=== PATIENT | female | born 1995 | race Caucasian/White ===

== ENCOUNTER 2024-01-23 12:52 | Outpatient (OUT) | payer OTHER, SELFPAY ==
--- NOTE | 2024-01-23 12:56 | US_ITS ---
[address] [address] Patient Name: NIALL HAILE MRN: [id number] date: 1995 Sex: F Assigned Patient Location: [facility] Current Patient Location: [facility] Accession/Order Number: [id number] Exam Date: 01/23/2024 13:00 Report Date: 01/23/2024 13:38 At the request of: EVA SOARES Procedure: US OB transvaginal EXAMINATION: US OB transvaginal HISTORY: Missed menses COMPARISON: No relevant comparison available. FINDINGS: Transvaginal images Cook intrauterine gestation Gestational sac: 2.22 cm, 6 weeks 6 days CRL: 1.34 cm, 7 days Yolk sac: 2.4 mm Heart rate: 154 beats minute Cervix: Closed, 3.9 cm The uterus is normal, anteverted The ovaries are normal Clinical age: 7 weeks 6 days Clinical URSULA: 09/04/2024 Ultrasound age: 7 weeks 4 days Ultrasound URSULA: 09/06/2024 US/US OB transvaginal IMPRESSION: Viable cook intrauterine gestation measuring 7 weeks 4 days Electronically authenticated by: CHINEDU FRIAS Date: 01/23/2024 13:38
== END 2024-01-23 12:53 | disposition home or self-care (01) ==
LOC: NOMS 12:52
PROVIDERS: Visit Provider Obstetrics & Gynecology
DX: Z34.91 Encounter for supervision of normal pregnancy, unspecified, first trimester (principal); Z3A.01 Less than 8 weeks gestation of pregnancy; N92.6 Irregular menstruation, unspecified
CPT/HCPCS: 76817

== ENCOUNTER 2024-02-13 10:34 | Outpatient (OUT) | payer OTHER, SELFPAY | END 2024-02-13 10:35 | disposition home or self-care (01) | PROVIDERS: Visit Provider Obstetrics & Gynecology | DX: Z34.80 Encounter for supervision of other normal pregnancy, unspecified trimester (principal) | CPT/HCPCS: 36415 ==

== ENCOUNTER 2024-04-09 20:50 | Outpatient (REF) | payer OTHER, SELFPAY ==
--- OUTSIDE RECORDS SUMMARY | 2024-04-09 20:53 | XMS_ITS | CCD ---
Author Organization [facility] Care Team Providers Care District [address] Reporter Name Role Phone LOLA KIRBY Unavailable Unavailable LOLA KIRBY Unavailable Unavailable UNKNOWN, PROVIDER Unavailable Unavailable GERARDO DOAN Unavailable Unavail able SALCIDO, EMILIANO S Unavailable Unavailable SELF, SELF Unavailable Unavailable SALCIDO, EMILIANO S Unavailable Unavailable SALCIDO, EMILIANO S Unavailable Unavailable SALCIDO, EMILIANO S Unavailable Unavailable SALCIDO, EMILIANO S Unavailable Unavailable SALCIDO, EMILIANO S Unavailable Unavailable SALCIDO, EMILIANO S Unavailable Unavailable Gerardo Doan Primary Care Provider [phone] Gerardo Doan Primary Care Provider [phone] Gerardo Doan Primary Care Provider [phone] Gerardo Doan MD Primary Care Provider [phone] Gerardo Doan MD Primary Care Provider EVA SOARES Attending Unavailable EVA SOARES Referring Unavailable GERARDO DOAN Primary Care Unavailable GERARDO DOAN Primary Care Unavailable LOLA KIRBY Referring Unavailable VERONICA LERMA Attending Unavailable EVA SOARES Attending Unavailable JOEL ESTES Attending Unavailable Medications Current Medications Medication Drug Class(es) Dates Sig (Normalized) Sig (Original) ethinyl estradiol 0.035 mg / norgestimate 0.25 mg oral tablet (3 sources) Progestin, Estrogen Start: 07-13-2022 End: 03-27-2023 take 1 tablet by mouth once daily norgestimate-ethi nyl estradiol 0.25-35 MG-MCG tablet Take 1 tablet by mouth daily. Patient is tri-cycling. 21 tablet 17 03/27/2023 Active Start: 03-19-2022 take 1 tablet by sunita th once daily norgestimate-ethinyl estradiol 0.25-35 MG-MCG tablet Indications: Initiation of oral contraception Take 1 tablet by mouth daily. 84 tablet 3 03/19/2022 Active 24 hr ferrous sulfate 142 mg extended release oral tablet (7 sources) Start: 01-17-2021 take 1 tablet by mouth three times daily Iron, Ferrous Sulfate, 142 (45 Fe) MG Tab CR Indications: Iron deficiency anemia due to chronic blood loss Take 1 tablet by mouth 3 times daily. 0 01/17/2021 Active sertraline 50 mg oral tablet (5 sources) Serotonin Reuptake Inhibitor Start: 03-15-2023 Sertraline 50 MG tablet TAKE 1 TABLET DAILY FOR 3 WEEKS THEN TAKE 1.5 TABLETS DAILY FOR 7 DAYS THE WEEK OF MENSTRUAL CYCLE 0 03/15/2023 Active Start: 02-01-2021 End: 03-19-2022 take 1 tablet by mouth once daily, then take 0.5 tablet by mouth once daily sertraline (Zoloft) 25 MG tablet Indications: Generalized anxiety disorder Take 1 tablet by mouth daily. Take 1/2 tab PO daily x8 days to start Rx. 30 tablet 1 02/01/2021 03/19/2022 Discontinued (Therapy completed) Completed/Discontinued Medications Medication Drug Class(es) Dates Sig (Normalized) Sig (Original) amoxicillin 875 mg / clavulanate 125 mg oral tablet (2 sources) Penicillin-class Antibacterial Start: 01-23-2021 End: 02-02-2021 take 1 tablet by mouth every twelve hours amoxicillin-clavul anate 875-125 MG tablet Take 1 tablet by mouth every 12 hours for 10 days. 20 tablet 0 01/23/2021 02/02/2021 12 hr cetirizine hydrochloride 5 mg / pseudoephedrine hydrochloride 120 mg extended release oral tablet (5 sources) alpha-Adrenergic Agonist, Histamine-1 Receptor Antagonist Start: 02-01-2021 End: 03-27-2023 take 5-120 mg by mouth every twelve hours cetirizine-psuedoe phedrine 5-120 MG Tab SR 12 HR tablet Indications: Fluid level behind tympanic membrane of both ears Take 1 tablet by mouth 2 times daily. 60 tablet 0 02/01/2021 03/27/2023 Discontinued Ethinyl Estradiol / Levonorgestrel (13 sources) Progestin, Estrogen, Progestin-containin g Intrauterine Device Start: 03-17-2021 End: 03-19-2022 levonorgestrel-eth inyl estradiol (Quasense) 0.15-0.03 MG tablet Indications: Encounter for surveillance of contraceptive pills Take one tablet by mouth daily. 91 tablet 3 03/17/2021 03/19/2022 Discontinued (Patient Preference) Start: 03-17-2021 levonorgestrel -ethinyl estradiol (Quasense) 0.15-0.03 MG tablet Indications: Encounter for surveillance of contraceptive pills Take one tablet by mouth daily. 91 tablet 3 03/17/2021 Active Start: 02-23-2021 End: 03-17-2021 levonorgestrel-ethinyl estra diol (Quasense) 0.15-0.03 MG tablet Indications: Encounter for surveillance of contraceptive pills Take one tablet by mouth daily. 28 tablet 0 02/23/2021 03/17/2021 Discontinued (Reorder) Start: 03-15-2020 take 1 tablet by sunita th once daily, then take 0.15 tablet by mouth levonorgestrel-ethinyl estradiol (Quasense) 0.15-0.03 MG tablet Indications: Encounter for surveillance of contraceptive pills Take one tablet by mouth daily. 1 Package 3 03/15/2020 Active Start: 03-11-2019 End: 03-15-2020 take 1 tablet by mouth once daily QUASENSE 0.15-0.03 MG Tab Indications: Encounter for surveillance of contraceptive pills Take one tablet by mouth daily. 1 Package 3 03/11/2019 03/15/2020 Discontinued (Reorder) Start: 03-11-2019 take 1 tablet by sunita th once daily QUASENSE 0.15-0.03 MG Tab Indications: Encounter for surveillance of contraceptive pills Take one tablet by mouth daily. 1 Package 3 03/11/2019 Active Start: 02-18-2018 End: 03-11-2019 take 1 tablet by mouth once daily QUASENSE 0.15-0.03 MG Tab Indications: Encounter for surveillance of contraceptive pills Take one tablet by mouth daily. 1 Package 3 02/18/2018 03/11/2019 Discontinued (Reorder) Start: 02-18-2018 take 1 tablet by sunita th once daily QUASENSE 0.15-0.03 MG Tab Indications: Encounter for surveillance of contraceptive pills Take one tablet by mouth daily. 1 Package 3 02/18/2018 Active Problems Active Problems Problem Classification Problem Date Documented Da te Episodic/Chronic Acquired foot deformities (7 sources) Acquired right hallux valgus; Translations: [Hallux valgus (acquired), right foot] Onset: 02-13-2018 02-13-2018 Chronic Acquired foot deformities (4 sources) Acquired right hallux valgus; Translations: [Hallux valgus (acquired), right foot] Onset: 02-13-2018 02-13-2018 Anxiety disorders (6 sources) Generalized anxiety disorder; Translations: [Generalized anxiety disorder] Onset: 02-03-2021 Chronic Conditions associated with dizziness or vertigo (2 sources) Lightheadedness; Translations: [Dizziness and giddiness] Episodic Contraceptive and procreative management (5 sources) Oral contraception; Translations: [Encounter for surveillance of contraceptive pills] Episodic Deficiency and other anemia (1 source) Iron deficiency anemia due to blood loss; Translations: [Iron deficiency 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 Diseases of white blood cells (1 source) Leukocytosis; Translations: [Elevated white blood cell count, unspecified] Chronic Menstrual disorders (20 sources) Dysmenorrhea; Translations: [Irregular periods] Onset: 12-21-2016 12-21-2016 Chronic Other congenital anomalies (2 sources) Congenital pes cavus; Translations: [Congenital pes cavus] Onset: 04-25-2018 Chronic Other congenital anomalies (4 sources) Talipes cavus; Translations: [Pes cavus] Onset: 02-13-2018 02-13-2018 Other gastrointestinal disorders (11 sources) Irritable bowel syndrome; Translations: [Mixed irritable bowel syndrome] Onset: 08-29-2017 08-29-2017 Chronic Other nervous system disorders (4 sources) Right tarsal tunnel syndrome; Translations: [Tarsal tunnel syndrome of right side] Onset: 02-13-2018 02-13-2018 Other nutritional; endocrine; and metabolic disorders (4 sources) Body mass index 25-29 - overweight; Translations: [BMI 27.0-27.9,adult] Onset: 08-29-2017 08-29-2017 Chronic Unclassified (10 sources) Encounter for screening for malignant neoplasm of cervix; Translations: [Patient encounter status] Onset: 02-15-2017 Episodic Unclassified (2 sources) Patient encounter status; Translations: [Encounter for gynecological examination without abnormal finding] Unclassified (5 sources) History of COVID-19; Translations: [History of COVID-19] Onset: 02-03-2021 Past or Other Problems Problem Classification Problem Date Documented Da te Episodic/Chronic Acquired foot deformities (7 sources) Talipes cavus; Translations: [Congenital pes cavus, unspecified foot] Onset: 02-13-2018 02-13-2018 Episodic Heart valve disorders (7 sources) Heart murmur; Translations: [Cardiac murmur, unspecified] Onset: 02-03-2021 Episodic Other connective tissue disease (2 sources) Pain in right foot; Translations: [Pain in right foot] Onset: 02-13-2018 Episodic Other connective tissue disease (11 sources) Tendinitis of flexor hallucis longus; Translations: [Other enthesopathies, not elsewhere classified] Onset: 02-13-2018 02-13-2018 Episodic Other gastrointestinal disorders (11 sources) Slow transit constipation; Translations: [Slow transit constipation] Onset: 05-10-2014 12-17-2016 Episodic Other infections; including parasitic (2 sources) Personal history of other infectious and parasitic diseases; Translations: [History of COVID-19] Onset: 02-03-2021 02-03-2021 Episodic Other nervous system disorders (7 sources) Right tarsal tunnel syndrome; Translations: [Tarsal tunnel syndrome, right lower limb] Onset: 02-13-2018 Resolved: 02-03-2021 02-13-2018 Chronic Other nutritional; endocrine; and metabolic disorders (7 sources) Body mass index 25-29 - overweight; Translations: [Body mass index (BMI) 28.0-28.9, adult] Onset: 08-29-2017 Episodic Other nutritional; endocrine; and metabolic disorders (1 source) Overweight in adulthood with body mass index of 25 or more but less than 30; Translations: [Body mass index (BMI) 29.0-29.9, adult] Onset: 08-29-2017 02-03-2021 Episodic Otitis media and related conditions (9 sources) Fluid level behind tympanic membrane; Translations: [Unspecified nonsuppurative otitis media, bilateral] Onset: 01-17-2021 Episodic Unclassified (1 source) Encounter for screening for malignant neoplasm of cervix; Translations: [Encounter for screening for malignant neoplasm of cervix] Onset: 02-15-2017 Results Test Name Value Interpretation Reference Range Facil ity RPRon 02-10-2024 Reagin Ab RPR Ql (S) Non-Reactive Normal NONREACTIVE A [facility] Comment on above: Result Comment: Test ing performed at [place] [address] Performed By: #### A RPR, RUBL, ACBC, FX, GHIV #### [place] [address] RUBELLA SCREENon 02-10-2024 RUBELLA SCREEN Positive Normal POSITIVE [facility] Comment on above: Result Comment: POSI TIVE RESULT INDICATES PRESUMED IMMUNITY Testing performed at [place] [address] Performed By: #### F X #### [place] [address] HEP B SURFACE AGon HEP B SURFACE AG Negative Normal NEGATIVE [facility] Comment on above: Performed By: #### F X #### [place] [address] HEP C ABon 02-07-2024 HEP C AB Negative Normal NEGATIVE [facility] Comment on above: Performed By: #### F X #### [place] [address] CBCon 02-06-2024 ABSOLUTE BAS 0.0 10*3/uL Normal 0.0-0.2 [facility] Comment on above: Result Comment: Test ing performed at [place] [address] Performed By: #### A RPR, RUBL, ACBC, FX, GHIV #### [place] [address] ABSOLUTE EOS 0.1 10*3/uL Normal 0.0-0.7 [facility] Comment on above: Performed By: #### A RPR, RUBL, ACBC, FX, GHIV #### Testing performed at [address] [address] ABSOLUTE NEUTROPHIL COUNT 9.0 10*3/uL High 1.4-6.5 [facility] Comment on above: Performed By: #### A RPR, RUBL, ACBC, FX, GHIV #### Testing performed at [place] [id number] Basophils/100 WBC (Bld) 0.2 % Normal 0.0-2.0 [facility] Comment on above: Performed By: #### A RPR, RUBL, ACBC, FX, GHIV #### [place] [address] DTYPE AUTO DIFF Normal [facility] Comment on above: Performed By: #### A RPR, RUBL, ACBC, FX, GHIV #### [place] [address] Eosinophils/100 WBC (Bld) 0.6 % Normal 0.0-11.0 [facility] Comment on above: Performed By: #### A RPR, RUBL, ACBC, FX, GHIV #### Testing performed at [place] [id number] Lymphocytes (Bld) [#/Vol] 2.2 10*3/uL Normal 1.2-3.4 [facility] Comment on above: Performed By: #### A RPR, RUBL, ACBC, FX, GHIV #### Testing performed at [place] [id number] Lymphocytes/100 WBC (Bld) 18.4 % Low 20.0-55.0 [facility] Comment on above: Performed By: #### A RPR, RUBL, ACBC, FX, GHIV #### Testing performed at [place] [id number] Monocytes (Bld) [#/Vol] 0.8 10*3/uL High 0.0-0.7 [facility] Comment on above: Performed By: #### A RPR, RUBL, ACBC, FX, GHIV #### Testing performed at [place] [id number] Monocytes/100 WBC (Bld) 6.3 % Normal 0.0-10.0 [facility] Comment on above: Performed By: #### A RPR, RUBL, ACBC, FX, GHIV #### [place] [address] Neutrophils/100 WBC (Bld) 74.5 % Normal 37.0-75.0 [facility] Comment on above: Performed By: #### A RPR, RUBL, ACBC, FX, GHIV #### [place] [address] Erythrocyte distribution width (RBC) [Ratio] 13.5 % Normal 11.5-14.5 [facility] Comment on above: Performed By: #### A RPR, RUBL, ACBC, FX, GHIV #### [place] [address] Hematocrit (Bld) [Volume fraction] 36.2 % Normal 36.0-48.0 [facility] Comment on above: Performed By: #### A RPR, RUBL, ACBC, FX, GHIV #### [place] [address] Hemoglobin (Bld) [Mass/Vol] 12.0 g/dL Normal 12.0-16.0 [facility] Comment on above: Performed By: #### A RPR, RUBL, ACBC, FX, GHIV #### [place] [address] MCH (RBC) [Entitic mass] 29.6 pg Normal 26.0-35.0 [facility] Comment on above: Performed By: #### A RPR, RUBL, ACBC, FX, GHIV #### [place] [address] MCHC (RBC) [Mass/Vol] 33.0 g/dL Normal 27.0-37.0 [facility] Comment on above: Performed By: #### A RPR, RUBL, ACBC, FX, GHIV #### [place] [address] MCV (RBC) [Entitic vol] 89.7 fL Normal 80.0-100.0 [facility] Comment on above: Performed By: #### A RPR, RUBL, ACBC, FX, GHIV #### [place] [address] Platelet mean volume (Bld) [Entitic vol] 6.9 fL Low 7.4-11.0 [facility] Comment on above: Performed By: #### A RPR, RUBL, ACBC, FX, GHIV #### [place] [address] Platelets (Bld) [#/Vol] 406 10*3/uL High 130-400 [facility] Comment on above: Performed By: #### A RPR, RUBL, ACBC, FX, GHIV #### [place] [address] RBC (Bld) [#/Vol] 4.04 10*6/uL Normal 4.0-5.4 [facility] Comment on above: Performed By: #### A RPR, RUBL, ACBC, FX, GHIV #### [place] [address] WBC (Bld) [#/Vol] 12.1 10*3/uL High 3.6-11.0 [facility] Comment on above: Performed By: #### A RPR, RUBL, ACBC, FX, GHIV #### [place] [address] FAX REQUESTon 02-06-2024 FAX TO [phone] Normal [facility] Comment on above: Result Comment: Test ing performed at [place] [address] Performed By: #### F X #### [place] [address] FAX TO [phone] Normal [facility] Comment on above: Result Comment: Test ing performed at [place] [address] Performed By: #### F X #### [place] [address] FAX TO [phone] [facility] Comment on above: Result Comment: Test ing performed at [place] [address] Performed By: #### F X #### [place] [address] FAX TO [phone] [facility] Comment on above: Result Comment: Test ing performed at [place] [address] Performed By: #### F X #### [place] [address] FAX TO [phone] [facility] Comment on above: Result Comment: Test ing performed at [place] [address] Performed By: #### A RPR, RUBL, ACBC, FX, GHIV #### [place] [address] HEMOGLOBIN A1Con 02-06-2024 Glucose [Mass/Vol] 100 mg/dL Normal [facility] Comment on above: Result Comment: Test ing performed at [place] [address] Performed By: #### F X #### [place] [address] HbA1c (Bld) [Mass fraction] 5.1 % Normal 0-6 [facility] Comment on above: Result Comment: NORMAL <5.7% PREDIABETES 5.7-6.4% DIABETES 6.5% OR HIGHER Performed By: #### F X #### [place] [address] HIV 1,2 ABon 02-06-2024 HIV 1,2 Non-Reactive Normal NONREACTIVE [facility] Comment on above: Result Comment: Test ing performed at [place] [address] Performed By: #### A RPR, RUBL, ACBC, FX, GHIV #### [place] [address] TYPE AND SCREEN CROSSMATCH C ONVERTIBLEon 02-06-2024 TYPE AND SCREEN CROSSMATCH CONVERTIBLE WORKUP EXPIRES 02/09/2024,2359 ABO/RH(D) O POSITIVE ANTIBODY SCREEN NEGATIVE ARM BAND NUMBER [id number] Testing performed at [address] Comment on above: Performed By: #### T SCC #### [place] [address] URINE CULTUREon 02-06-2024 Bacteria identified Cx Nom (U) SPECIMEN DESCRIPTION URINE CLEAN CATCH CULTURE NO PATHOGENS ISOLATED * Result Note: Testing performed at [place] [address] * REPORT STATUS 02/08/2024 * Result Note: FINAL * [facility] Comment on above: Performed By: #### A URNC #### [place] [address] PAP IG,RFX HPV ASCUon 2022 . . [facility] . Comment [facility] Comment on above: Result Comment: (NOT E) The HPV DNA reflex criteria were not met with this specimen result therefore, no HPV testing was performed. No. of containers..01 ThinPrep Vial DIAGNOSIS: Comment [facility] Comment on above: Result Comment: NEGA TIVE FOR INTRAEPITHELIAL LESION OR MALIGNANCY. NOTE: Comment [facility] Comment on above: Result Comment: (NOT E) The Pap smear is a screening test designed to aid in the detection of premalignant and malignant conditions of the uterine cervix. It is not a diagnostic procedure and should not be used as the sole means of detecting cervical cancer. Both false-positive and false-negative reports do occur. PERFORMED BY: Comment [facility] Comment on above: Result Comment: Josue Carrero Mud Analysis Supervisor (ASCP) SPECIMEN ADEQUACY: Comment [facility] Comment on above: Result Comment: (NOT E) Satisfactory for evaluation. Endocervical and/or squamous metaplastic cells (endocervical component) are present. TEST METHODOLOGY: Comment Normal [facility] Comment on above: Result Comment: (NOT E) This liquid based ThinPrep(R) pap test was screened with the use of an image guided system. PERFORMED AT [facility] ECHOCARDIOGRAM TREADMILL STR ESS TESTOrdered By: Gerardo Doan on 02-18-2021 APPROVED REPORT EXAM: Treadmill Stress Echo Conclusion Normal stress echo. Baseline EF 60%, augmented EF 70%. No ischemic WMA seen. Good exercise tolerance, no CP with stress. Indeterminant stress ECG due to TWI precordial leads that did not significantly change with stress. Other Information Study Quality: Excellent Echo Procedure The patient underwent an Exercise Stress Test using the Rodger Protocol. Blood pressure, heart rate, and EKG were monitored. An Echocardiogram was performed by production line technician in four stages in quad fashion. At peak stress, four selected images were obtained and placed side by side with resting images for comparison. Stress Test Details Test: Exercise stress testing was performed using a Rodger protocol. HR Resting HR: 109 bpm Max Heart Rate (APMHR): 194.322988 bpm Max HR Achieved: 200 bpm Target HR (85% APMHR): 164.625014 bpm % of APMHR: 103.09 Recovery HR: 121 bpm HR response to stress: appropriate BP Resting BP: 142/78 mmHg Max BP: 164/80 mmHg BP response to stress: Normal blood pressure response to stress. ECG Resting ECG: sinus rhythm T wave abnormal at rest and stress Arrhythmia: None Clinical Reason for Termination: fatigue Stress Symptoms: None Exercise duration: 11:02 min Exercise capacity: 13.70 METs Scale: Active Angina Score: None [facility] System User, Interfaces - 02/18/2021 12:14 AM EDT APPROVED REPORT EXAM: Treadmill Stress Echo Conclusion Normal stress echo. Baseline EF 60%, augmented EF 70%. No ischemic WMA seen. Good exercise tolerance, no CP with stress. Indeterminant stress ECG due to TWI precordial leads that did not significantly change with stress. Other Information Study Quality: Excellent Echo Procedure The patient underwent an Exercise Stress Test using the Rodger Protocol. Blood pressure, heart rate, and EKG were monitored. An Echocardiogram was performed by production line technician in four stages in quad fashion. At peak stress, four selected images were obtained and placed side by side with resting images for comparison. Stress Test Details Test: Exercise stress testing was performed using a Rodger protocol. HR Resting HR: 109 bpmMax Heart Rate (APMHR): 194.290173 bpm Max HR Achieved: 200 bpmTarget HR (85% APMHR): 164.129831 bpm % of APMHR: 103.09 Recovery HR: 121 bpm HR response to stress: appropriate BP Resting BP: 142/78 mmHg Max BP: 164/80 mmHg BP response to stress: Normal blood pressure response to stress. ECG Resting ECG: sinus rhythm T wave abnormal at rest and stress Arrhythmia: None Clinical Reason for Termination: fatigue Stress Symptoms: None Exercise duration: 11:02 min Exercise capacity: 13.70 METs Scale: Active Angina Score: None [facility] [employer] [facility] ECGOrdered By: Gerardo Doan on 01-27-2021 [facility] B12 & FOLATEOrdered By: Yessy Doan on 01-17-2021 Cobalamin (Vitamin B12) [Mass/Vol] 383 pg/mL 239 - 931 PG/ML [facility] [employer] [facility] Folate [Mass/Vol] 19.7 ng/mL [facility] [employer] [facility] Comment on above: Testing performed at [place], [place] [address] [facility] CBC, EDIF, PLATELETOrdered B y: Gerardo Doan on 01-17-2021 ABSOLUTE BASOPHIL COUNT 0.1 10*3/uL 0.0 - 0.2 10*3/uL [facility] Comment on above: Testing performed at [place], [place] [address] Basophils/100 WBC (Bld) 0.4 % 0.0 - 2.0 % [facility] Differential cell count method Nom (Bld) AUTO DIFF % [facility] Eosinophils (Bld) [#/Vol] 0.10 10*3/uL 0.0 - 0.7 10*3/uL [facility] [employer] [facility] Eosinophils/100 WBC (Bld) 0.6 % 0.0 - 11.0 % [facility] Erythrocyte distribution width (RBC) [Ratio] 13.2 % 11.5 - 14.5 % [facility] Hematocrit (Bld) [Volume fraction] 39.3 % 36.0 - 48.0 % [facility] Hemoglobin (Bld) [Mass/Vol] 13.6 g/dL [facility] Interpretation and review of laboratory results Abnormal [facility] Lymphocytes (Bld) [#/Vol] 1.90 10*3/uL 1.2 - 3.4 10*3/uL [facility] Lymphocytes/100 WBC (Bld) 13.6 % Low 20.0 - 55.0 % [facility] MCH (RBC) [Entitic mass] 31.1 pg 26.0 - 35.0 PG [facility] MCHC (RBC) [Mass/Vol] 34.7 g/dL [facility] MCV (RBC) [Entitic vol] 89.6 fL [facility] Monocytes (Bld) [#/Vol] 0.5 10*3/uL 0.0 - 0.7 10*3/uL [facility] Monocytes/100 WBC (Bld) 3.5 % 0.0 - 10.0 % [facility] Neutrophils (Bld) [#/Vol] 11.3 10*3/uL High 1.4 - 6.5 10*3/uL [facility] Neutrophils/100 WBC (Bld) 81.9 % High 37.0 - 75.0 % [facility] Platelet mean volume (Bld) [Entitic vol] 7.6 fL [facility] Platelets (Bld) [#/Vol] 483 10*3/uL High 130.0 - 400.0 10*3/uL [facility] RBC (Bld) [#/Vol] 4.38 10*6/uL 4.0 - 5.4 10*6/uL [facility] WBC (Bld) [#/Vol] 13.8 10*3/uL High 3.6 - 11.0 10*3/uL [facility] COMPREHENSIVE METABOLIC PANE LOrdered By: Gerardo Doan on 01-17-2021 Albumin [Mass/Vol] 4.6 G/dl 3.5 - 5.0 G/dl [facility] Albumin/Globulin [Mass ratio] 1.4 {ratio} [facility] ALP [Catalytic activity/Vol] 57 U/L [facility] ALT [Catalytic activity/Vol] 18 U/L <35 IU/L [facility] AST [Catalytic activity/Vol] 21 U/L [facility] Bilirubin [Mass/Vol] 0.4 mg/dL [facility] Calcium [Mass/Vol] 10.3 mg/dL High [facility] Chloride [Moles/Vol] 106 mmol/L [facility] Comment on above: Please note: Triglyc eride levels of 600mg/dL or higher may positively bias chloride results by approximately 2.1 mmol CO2 [Moles/Vol] 21 mmol/L Low [facility] Creatinine [Mass/Vol] 0.50 mg/dL Low [facility] GFR COMMENT Average GFR for 20-2 9 years old = 116. [facility] Comment on above: Chronic Kidney disea se, GFR = <60. Kidney failure, GFR = <15. The GFR estimate is not adjusted for extreme body surface area or acute process, nor has it been validated for women or ethnic groups other than and . Testing performed at [place], [place] [address] GFR/1.73 sq M.predicted among blacks MDRD (S/P/Bld) [Vol rate/Area] mL/min/{1.73_m2} ml/min/1.73sq.m [facility] GFR/1.73 sq M.predicted among non-blacks MDRD (S/P/Bld) [Vol rate/Area] mL/min/{1.73_m2} ml/min/1.73sq.m [facility] Glucose post fast [Mass/Vol] 105 mg/dL High [facility] Comment on above: NORMAL <100 mg/dL PREDIABETES 101-126 mg/dL DIABETES 126 mg/dL or higher Interpretation and review of laboratory results Abnormal [facility] Potassium [Moles/Vol] 4.1 mmol/L [facility] Protein [Mass/Vol] 8.0 g/dL [facility] Sodium [Moles/Vol] 138 mmol/L [facility] Urea nitrogen [Mass/Vol] 8 mg/dL [facility] HEMOGLOBIN [id number] By: Sa edi Doan on 01-17-2021 Glucose [Mass/Vol] 100 mg/dL [facility] Comment on above: Testing performed at [place] [address] HbA1c (Bld) [Mass fraction] 5.1 % 0 - 6 % [facility] Comment on above: NORMAL <5.7% PREDIABETES 5.7-6.4% DIABETES 6.5% OR HIGHER [facility] IRON/IRON BINDING/TRANSFERRI NOrdered By: Gerardo Doan on 01-17-2021 Interpretation and review of laboratory results Abnormal [facility] Iron [Mass/Vol] 145 ug/dL [facility] Iron binding capacity [Mass/Vol] 505 High [facility] Iron saturation [Mass fraction] 29 % [facility] Comment on above: Testing performed at [address] TSHOrdered By: Gerardo Doan on 01-17-2021 TSH Qn 1.420 m[IU]/L [facility] [place] [facility] Comment on above: Testing performed at [address] PROGRESSon 04-25-2018 [facility] NOTES Normal [facility] PROGRESSon 02-19-2018 [facility] NOTES Normal [facility] PROGRESSon 02-13-2018 [facility] NOTES Normal [facility] PAP, ThinPrep, rfx HPV ASCUS on 02-15-2017 Comment Normal [facility] Comment on above: Result Comment: IGLB P CPT CODE AUTOMATION: (NOTE)IGLBP CPT CODE AUTOMATION: This liquid based ThinPrep(R) pap test was screenedwith theIGLBP CPT CODE AUTOMATION: use of an image guided system. Performed By: #### L PRAS ####[facility] Pathology [address] [place] [address] lab Director: Dr. Lauro Merino, DO Diagnosis Normal [facility] Comment on above: Result Comment: Comm ent(NOTE)NEGATIVE FOR INTRAEPITHELIAL LESION AND MALIGNANCY.CELLULAR CHANGES ASSOCIATED WITH INFLAMMATION ARE PRESENT.THIS SPECIMEN WAS RESCREENED PART OF OUR PHOTONICS ENGINEER PROGRAM. Performed By: #### L PRAS ####[facility] Pathology [address] [place] [address] Lab Director: Dr. Lauro Merino DO IGLBP CPT COde Comment [facility] Comment on above: Performed By: #### L PRAS ####[facility] Pathology [address] [place] [address] Lab Director: Dr. Lauro Merino DO Note [facility] Comment on above: Result Comment: Comm ent(NOTE)The Pap smear is a screening test designed to aid in the detection ofpremalignant and malignant conditions of the uterine cervix. It isnot a diagnostic procedure and should not be used as the sole meansof detecting cervical cancer. Both false-positive and false-negativereports do occur. Performed By: #### L PRAS ####[facility] Pathology [address] [place] [address] lab Director: Dr. Lauro Merino DO Performed By Comment Kareen Lucero, Mud Analysis Supervisor [facility] Comment on above: Performed By: #### L PRAS ####[facility] Pathology [address] [place] [address] Lab Director: Dr. Lauro Merino DO Performed By [facility] Comment on above: Performed By: #### L PRAS ####[facility] Pathology [address] [place] [address] Lab Director: Dr. Lauro Merino DO QC Reviewed By Comment Dedra Yip , Supervisory Mud Analysis Supervisor (ASCP) [facility] Comment on above: Performed By: #### L PRAS ####[facility] Pathology [address] [place] [address] Lab Director: Dr. Lauro Merino DO Spec Adequacy [facility] Comment on above: Result Comment: Comm ent(NOTE)Satisfactory for evaluation. Endocervical and/or squamous metaplasticcells (endocervical component) are present. Performed By: #### L PRAS ####[facility] [address] [place] [address] lab Director: Dr. Lauro Merino DO Specimen # [id number] [facility] Comment on above: Performed By: #### L PRAS ####[facility] Pathology [address] [place] [address] lab Director: Dr. Lauro Merino, . [facility] Comment on above: Result Comment: Comm ent(NOTE)The HPV DNA reflex criteria were not met with this specimen resulttherefore, no HPV testing was performed.No. of containers..01 CYTYC Thin Prep VialPERFORMED AT [facility] Performed By: #### L PRAS ####[facility] Pathology [address] [place] [address] lab Director: Dr. Lauro Merino DO . . [facility] Comment on above: Performed By: #### L PRAS ####[facility] Pathology [address] [place] [address] lab Director: Dr. Lauro Merino DO Vital Signs Date Time Vital Sign Value Performing Clinician Benny jacob 03-27-2023 09:16-0400 Body height 157.5 cm Ami Hay HORIZONTAL BORING MILL SET UP OPERATOR-WOOD FENCE INSTALLER Work Phone: [facility] 03-27-2023 09:16-0400 Body mass index (BMI) [Ratio] 29.26 kg/m2 Ami Hay HORIZONTAL BORING MILL SET UP OPERATOR-WOOD FENCE INSTALLER Work Phone: [facility] 03-27-2023 09:16-0400 Body weight 72.58 kg Ami Hay HORIZONTAL BORING MILL SET UP OPERATOR-WOOD FENCE INSTALLER Work Phone: [facility] 03-27-2023 09:16-0400 Diastolic blood pressure 64 mm[Hg] Ami Hay HORIZONTAL BORING MILL SET UP OPERATOR-WOOD FENCE INSTALLER Work Phone: [facility] 03-27-2023 09:16-0400 Systolic blood pressure 110 mm[Hg] Ami Hay HORIZONTAL BORING MILL SET UP OPERATOR-WOOD FENCE INSTALLER Work Phone: [facility] 03-19-2022 10:05-0400 Body height 157.5 cm Lola Kofi HORIZONTAL BORING MILL SET UP OPERATOR-WOOD FENCE INSTALLER Work Phone: [facility] 03-19-2022 10:05-0400 Body mass index (BMI) [Ratio] 30.91 kg/m2 Lola Kofi HORIZONTAL BORING MILL SET UP OPERATOR-WOOD FENCE INSTALLER Work Phone: [facility] 03-19-2022 10:05-0400 Body weight 76.66 kg Lola Kofi HORIZONTAL BORING MILL SET UP OPERATOR-WOOD FENCE INSTALLER Work Phone: [facility] 03-19-2022 10:05-0400 Diastolic blood pressure 66 mm[Hg] Lola Kofi HORIZONTAL BORING MILL SET UP OPERATOR-WOOD FENCE INSTALLER Work Phone: [facility] 03-19-2022 10:05-0400 Systolic blood pressure 122 mm[Hg] Lola Kofi HORIZONTAL BORING MILL SET UP OPERATOR-WOOD FENCE INSTALLER Work Phone: [facility] 03-17-2021 13:57-0400 Body height 157.5 cm Lola Solaresam HORIZONTAL BORING MILL SET UP OPERATOR-WOOD FENCE INSTALLER Work Phone: [facility] 03-17-2021 13:57-0400 Body mass index (BMI) [Ratio] 28.9 kg/m2 Lola Kofi HORIZONTAL BORING MILL SET UP OPERATOR-WOOD FENCE INSTALLER Work Phone: [facility] 03-17-2021 13:57-0400 Body weight 71.67 kg Lola Kofi HORIZONTAL BORING MILL SET UP OPERATOR-WOOD FENCE INSTALLER Work Phone: [facility] 03-17-2021 13:57-0400 Diastolic blood pressure 76 mm[Hg] Lola Kofi HORIZONTAL BORING MILL SET UP OPERATOR-WOOD FENCE INSTALLER Work Phone: [facility] 03-17-2021 13:57-0400 Systolic blood pressure 122 mm[Hg] Lola Kofi HORIZONTAL BORING MILL SET UP OPERATOR-WOOD FENCE INSTALLER Work Phone: [facility] 02-01-2021 07:05-0400 Body height 157.5 cm Gerardo Doan MD Work Phone: [facility] 02-01-2021 07:05-0400 Body mass index (BMI) [Ratio] 29.07 kg/m2 Gerardo Doan MD Work Phone: [facility] 02-01-2021 07:05-0400 Body temperature 98.4 [degF] Gerardo Doan MD Work Phone: [facility] 02-01-2021 07:05-0400 Body weight 72.12 kg Gerardo Doan MD Work Phone: [facility] 02-01-2021 07:05-0400 Diastolic blood pressure 84 mm[Hg] Gerardo Doan MD Work Phone: [facility] 02-01-2021 07:05-0400 Heart rate 127 /min Gerardo Doan MD Work Phone: [facility] 02-01-2021 07:05-0400 Respiratory rate 18 /min Gerardo Doan MD Work Phone: [facility] 02-01-2021 07:05-0400 SaO2% (BldA) [Mass fraction] 99 % Gerardo Doan MD Work Phone: [facility] 02-01-2021 07:05-0400 Systolic blood pressure 130 mm[Hg] Gerardo Doan MD Work Phone: [facility] 01-17-2021 09:37-0400 Diastolic blood pressure 80 mm[Hg] Gerardo Doan MD Work Phone: [facility] 01-17-2021 09:37-0400 Heart rate 111 /min Gerardo Doan MD Work Phone: [facility] 01-17-2021 09:37-0400 Systolic blood pressure 130 mm[Hg] Gerardo Doan MD Work Phone: [facility] 01-17-2021 08:17-0400 Body height 157.5 cm Gearrdo Doan MD Work Phone: [facility] 01-17-2021 08:17-0400 Body mass index (BMI) [Ratio] 28.74 kg/m2 Gerardo Doan MD Work Phone: [facility] 01-17-2021 08:17-0400 Body temperature 98.6 [degF] Gerardo Doan MD Work Phone: [facility] 01-17-2021 08:17-0400 Body weight 71.31 kg Gerardo Doan MD Work Phone: [facility] 01-17-2021 08:17-0400 Respiratory rate 18 /min Gerardo Doan MD Work Phone: [facility] 01-17-2021 08:17-0400 SaO2% (BldA) [Mass fraction] 99 % Gerardo Doan MD Work Phone: [facility] 03-15-2020 09:24-0400 BMI (Body Mass Index) 29.78 kg/m2 [facility] 03-15-2020 09:24-0400 Body Temperature 97.81 [degF] [facility] 03-15-2020 09:24-0400 Body weight 73.85 kg [facility] 03-15-2020 09:24-0400 BP Diastolic 62 mm[Hg] [facility] 03-15-2020 09:24-0400 BP Systolic 128 mm[Hg] [facility] 03-15-2020 09:24-0400 Height 157.5 cm [facility] 03-11-2019 14:45-0400 BMI (Body Mass Index) 28.9 kg/m2 [facility] 03-11-2019 14:45-0400 Body weight 71.67 kg [facility] 03-11-2019 14:45-0400 BP Diastolic 72 mm[Hg] [facility] 03-11-2019 14:45-0400 BP Systolic 120 mm[Hg] [facility] 03-11-2019 14:45-0400 Height 157.5 cm [facility] Encounters Encounter Date Encounter Type Care Provider Facility Start: 03-12-2024 End: 03-12-2024 ambulatory JOEL ESTES Not Available Start: 02-13-2024 End: 02-13-2024 ambulatory EVA CAROLINAO Not Available Start: 02-06-2024 ambulatory EVA RODGER [facility] Start: 01-23-2024 End: 01-23-2024 ambulatory EVA RODGER Not Available Start: 03-27-2023 End: 03-27-2023 Patient encounter status Veronica Lerma HORIZONTAL BORING MILL SET UP OPERATOR-WOOD FENCE INSTALLER Work Phone: [facility] Work Phone: Start: 03-27-2023 End: 03-27-2023 Periodic preventive med est patient 18-39 yrs Veronica Stokes Jorge HORIZONTAL BORING MILL SET UP OPERATORLogicMonitorWOOD FENCE INSTALLER Work Phone: [facility] BUSINESS PROFESSOR Comment on above: Encounter for gyneco logical examination without abnormal finding (Primary Dx); Screening for cervical cancer; Encounter for surveillance of contraceptive pills Start: 03-27-2023 ambulatory GERARDODHARMESH DOAN [facility] Start: 03-19-2022 End: 03-19-2022 Patient encounter status Lola Kirby HORIZONTAL BORING MILL SET UP OPERATOR-WOOD FENCE INSTALLER Work Phone: [employer] BUSINESS PROFESSOR Start: 03-19-2022 End: 03-19-2022 Periodic preventive med est patient 18-39 yrs Lola Kirby HORIZONTAL BORING MILL SET UP OPERATOR-WOOD FENCE INSTALLER [facility] BUSINESS PROFESSOR Comment on above: Encounter for gyneco logical examination without abnormal finding (Primary Dx); Initiation of oral contraception Start: 03-17-2021 End: 03-17-2021 Patient encounter status Lola Kirby HORIZONTAL BORING MILL SET UP OPERATOR-WOOD FENCE INSTALLER Work Phone: [employer] [facility] BUSINESS PROFESSOR Start: 03-17-2021 End: 03-17-2021 Periodic preventive med est patient 18-39 yrs Lola Kirby HORIZONTAL BORING MILL SET UP OPERATOR-WOOD FENCE INSTALLER Work Phone: [facility] BUSINESS PROFESSOR Comment on above: Encounter for gyneco logical examination without abnormal finding (Primary Dx); Encounter for surveillance of contraceptive pills Start: 02-17-2021 End: 02-17-2021 Subsequent hospital visit by physician Gerardo Doan MD Work Phone: [facility] Comment on above: Arrived Start: 02-01-2021 End: 02-01-2021 Office outpatient visit 25 minutes Gerardo Doan MD Work Phone: [facility] Comment on above: Murmur (Primary Dx); History of COVID-19; Abnormal EKG; Generalized anxiety disorder; Fluid level behind tympanic membrane of both ears; Leukocytosis, unspecified type Start: 01-27-2021 End: 01-27-2021 Subsequent hospital visit by physician Gerardo Doan MD Work Phone: [facility] Comment on above: Arrived Start: 01-17-2021 End: 01-17-2021 Office outpatient visit 25 minutes Gerardo Doan MD Work Phone: [facility] Comment on above: Lightheadedness (Jaycee mandi Dx); Screening for condition; BMI 28.0-28.9,adult; Irregular periods/menstrual cycles; Menorrhagia with regular cycle; Fluid level behind tympanic membrane of both ears; Iron deficiency anemia due to chronic blood loss Start: 03-15-2020 End: 03-15-2020 Periodic preventive med est patient 18-39 yrs Lola Solaresam Work Phone: [employer] BUSINESS PROFESSOR Comment on above: Encounter for gyneco logical examination without abnormal finding (Primary Dx); Encounter for surveillance of contraceptive pills Start: 03-11-2019 End: 03-11-2019 Periodic preventive med est patient 18-39 yrs Lolagama Kirby Work Phone: [employer] [facility] BUSINESS PROFESSOR Comment on above: Encounter for gyneco logical examination without abnormal finding (Primary Dx); Encounter for surveillance of contraceptive pills Start: 11-19-2018 End: 11-19-2018 Patient encounter procedure Other Other [facility] Start: 04-25-2018 Patient encounter EMILIANO Seay [facility] Start: 02-19-2018 Patient encounter EMILIANO Seay [facility] Start: 02-13-2018 Patient encounter EMILIANO Seay [facility] Start: 02-15-2017 End: 02-16-2017 Ambulatory LOLA [facility] pital Procedures Date Procedure Procedure Detail Performing Clinician Start: 03-17-2021 PAP IG, RFX HPV ASCU Sh iggy Kirby HORIZONTAL BORING MILL SET UP OPERATOR-WOOD FENCE INSTALLER Work Phone: Start: 02-17-2021 Echo tthrc r-t 2d w/ wo m-mode complete rest&st Gerardo Doan MD Work Phone: Start: 01-27-2021 Ecg routine ecg w/le ast 12 lds trcg only w/o i&r Gerardo Doan MD Work Phone: Start: 01-17-2021 B12/folate level Gerardo Doan MD Work Phone: Start: 01-17-2021 Complete blood count with white cell differential, automated Gerardo Doan MD Work Phone: Start: 01-17-2021 Comprehensive metabo lic panel Gerardo Doan MD Work Phone: Start: 03-15-2020 PAP IG, RFX HPV ASCU Sh iggy Kirby Work Phone: Plan of Treatment Date Care Activity Detail Author Start: 04-19-2027 Tetanus vaccination TETANUS [facility] Start: 04-01-2024 End: 04-01-2024 Patient encounter procedure 04/01/2024 8:50 AM EDT Office Visit [facility] BUSINESS PROFESSOR [address] [facility] [address] [place] [address] [phone] Veronica Lerma HORIZONTAL BORING MILL SET UP OPERATOR-WOOD FENCE INSTALLER [address] [facility] [address] [place] [address] [phone] [facility] BUSINESS PROFESSOR Start: 03-27-2024 Screening for malign ant neoplasm of cervix CERVICAL CANCER SCREENING DISCUSSION [facility] Start: 03-29-2023 Influenza vaccination INFLUENZA VACC INE (#1) [facility] Start: 03-21-2023 End: 03-21-2023 Patient encounter procedure 03/21/2023 Office Visit BUSINESS PROFESSOR Lola Kirby HORIZONTAL BORING MILL SET UP OPERATOR-WOOD FENCE INSTALLER [id number] [place] [address] [phone] [facility] BUSINESS PROFESSOR Start: 03-19-2023 Screening for malign ant neoplasm of cervix CERVICAL CANCER SCREENING DISCUSSION [facility] Start: 03-29-2022 Influenza vaccination INFLUENZA VACC INE (#1) [facility] Start: 03-23-2022 End: 03-23-2022 Patient encounter procedure 03/23/2022 Office Visit BUSINESS PROFESSOR Lola Kirby, HORIZONTAL BORING MILL SET UP OPERATOR-WOOD FENCE INSTALLER [id number] [place] [address] [facility] BUSINESS PROFESSOR Start: 03-17-2022 Screening for malign ant neoplasm of cervix CERVICAL CANCER SCREENING DISCUSSION [facility] Start: 03-29-2021 Influenza vaccination A [facility] Start: 03-17-2021 End: 03-17-2021 Patient encounter procedure 03/17/2021 Office Visit BUSINESS PROFESSOR Lola Kirby, HORIZONTAL BORING MILL SET UP OPERATOR-WOOD FENCE INSTALLER [id number] [place] [address] [facility] BUSINESS PROFESSOR Start: 03-17-2021 End: 03-17-2021 Office Visit 03/17/2021 Office Visit BUSINESS PROFESSOR Lola Kirby, HORIZONTAL BORING MILL SET UP OPERATOR-WOOD FENCE INSTALLER [id number] [place] [address] [facility] BUSINESS PROFESSOR Start: 03-15-2021 Screening for malign ant neoplasm of cervix CERVICAL CANCER SCREENING DISCUSSION [facility] Start: 02-28-2021 End: 02-28-2021 Patient encounter procedure 02/28/2021 Office Visit Family Medicine Gerardo Doan MD [address] [place] [phone] [facility] Start: 02-01-2021 End: 02-01-2022 Complete blood count with white cell differential, automated CBC, EDIF, PLATELET Lab Routine Leukocytosis, unspecified type Expected: 02/01/2021, Expires: 02/01/2022 [facility] Comment on above: Expected: 02/01/2021 , Expires: 02/01/2022 Start: 02-01-2021 End: 02-01-2022 Exercise stress echocardiography ECHOCARDIOGRAM TREADMILL STRESS TEST Stress Echocardiography Routine Murmur History of COVID-19 Abnormal EKG Expected: 02/01/2021, Expires: 02/01/2022 [facility] Comment on above: Expected: 02/01/2021 , Expires: 02/01/2022 Start: 02-01-2021 End: 02-01-2021 Patient encounter procedure 02/01/2021 Office Visit Family Medicine Gerardo Doan MD [address] [place] [phone] [facility] Start: 01-17-2021 End: 01-17-2022 Standard ECG ECG ECG Routine Lightheadedness Expected: 01/17/2021, Expires: 01/17/2022 [facility] Comment on above: Expected: 01/17/2021 , Expires: 01/17/2022 Start: 06-15-2020 End: 03-15-2021 [facility] CYTOLOGY-QUALITY CONSULTANT, LIQUID BASED [facility] CYTOLOGY-QUALITY CONSULTANT, LIQUID BASED Cytology Routine Encounter for gynecological examination without abnormal finding Expected: 06/15/2020, Expires: 03/15/2021 [facility] Comment on above: Expected: 06/15/2020 , Expires: 03/15/2021 Start: 03-29-2020 Influenza vaccination INFLUENZA VACC INE (#1) [facility] Start: 03-11-2020 Screening for malign ant neoplasm of cervix CERVICAL CANCER SCREENING DISCUSSION [facility] Start: 03-29-2019 Influenza vaccination [facility] Start: 03-11-2019 End: 03-11-2020 [facility]ONA CYTOLOGY-QUALITY CONSULTANT, LIQUID BASED [facility] CYTOLOGY-QUALITY CONSULTANT, LIQUID BASED Cytology Routine Encounter for gynecological examination without abnormal finding Expected: 03/11/2019, Expires: 03/11/2020 [facility] Comment on above: Expected: 03/11/2019 , Expires: 03/11/2020 Start: 02-20-2019 End: 02-20-2019 Office Visit 02/20/2019 Office Visit BUSINESS PROFESSOR Lola Kirby, HORIZONTAL BORING MILL SET UP OPERATOR-WOOD FENCE INSTALLER [id number] [place] [address] [phone] [facility] BUSINESS PROFESSOR Start: 02-18-2019 Screening for malign ant neoplasm of cervix PAP SMEAR DISCUSSION [facility] Start: 02-15-2018 Screening for malign ant neoplasm of cervix PAP SMEAR DISCUSSION [facility] Start: 01-26-2016 Tetanus vaccination TETANUS [facility] Start: 2013 Third diphtheria, te tanus and acellular pertussis (DTaP) vaccination TDAP (ADULT) [facility] Start: 2010 Screening for Chlamy andrey trachomatis CHLAMYDIA SCREEN [facility] Start: 2009 HIV screening HIV SCREENING DISCUSSI ON [facility] Start: 11-09-2007 HIV screening HIV SCREENING DISCUSSI ON [facility] Start: 2006 COVID-19 VACCINE (1) COVID-19 VACCIN E (1) [facility] Start: 05-10-1995 COVID-19 VACCINE (#1) COVID-19 VACCI NE (#1) [facility] Start: 1994 GONORRHEA SCREEN GONORRHEA SCREEN [facility] Start: 1994 Hepatitis C antibody , confirmatory test HEPATITIS C VIRUS SCREENING [facility] Start: 1994 Hepatitis C screening HEPATITI S C VIRUS SCREENING [facility] PAP IG, RFX HPV ASCU PAP IG, RFX HPV ASCU LAB SEND OUTS Routine 03/15/2020 9:50 AM [facility] PAP IG, RFX HPV ASCU PAP IG, RFX HPV ASCU Cytology Routine 03/17/2021 1:55 PM [facility] Work Phone: PAP IG, RFX HPV ASCU PAP IG, RFX HPV ASCU Cytology Routine 03/19/2022 10:06 AM [facility] PAP IG, RFX HPV ASCU PAP IG, RFX HPV ASCU Cytology Routine 03/27/2023 9:25 AM [facility] Immunizations Immunization Date Immunization Notes Care Provider Pedro rooney 05-20-2019 influenza virus vacc ine, unspecified formulation [facility] [facility] 05-09-2016 influenza virus vacc ine, unspecified formulation Other [facility] 04-24-2012 meningococcal polysaccharide (groups A, C, Y and W-135) diphtheria toxoid conjugate vaccine (MCV4P) Other [facility] 09-02-2007 human papilloma viru s vaccine, bivalent Other Other [facility] 05-02-2007 human papilloma viru s vaccine, bivalent Other Other [facility] 02-11-2007 human papilloma viru s vaccine, bivalent Other Other [facility] 02-11-2007 meningococcal polysaccharide (groups A, C, Y and W-135) diphtheria toxoid conjugate vaccine (MCV4P) Other Other [facility] 02-11-2007 varicella virus vaccine Other Other [facility] 01-25-2006 tetanus toxoid, redu cate diphtheria toxoid, and acellular pertussis vaccine, adsorbed Other Other [facility] 03-03-2001 varicella virus vaccine Other Other [facility] 11-14-1999 measles, mumps and r ubella virus vaccine Other Other [facility] 06-15-1996 diphtheria, tetanus toxoids and acellular pertussis vaccine Other Other [facility] 03-10-1996 haemophilus influenz ae type b vaccine, conjugate unspecified formulation Other Other [facility] 03-10-1996 measles, mumps and r ubella virus vaccine Other Other [facility] 08-13-1995 hepatitis B vaccine, pediatric or pediatric/adolescent dosage Other Other [facility] 04-11-1995 poliovirus vaccine, inactivated Other Other [facility] 02-01-1995 hepatitis B vaccine, pediatric or pediatric/adolescent dosage Other Other [facility] 1994 hepatitis B vaccine, pediatric or pediatric/adolescent dosage Other [facility] Payers Date Payer Category Payer Unknown [id number] 2021 Unknown [id number] 2016 Unknown 2014 Unknown [id number] 1994 Unknown [id number] 1994 Unknown [id number] 1994 Unknown [id number] 1994 Unknown [id number] 1994 Unknown [id number] Social History Date Type Detail Facility Start: 03-15-2020 End: 03-27-2023 Tobacco smoking status NHIS Never smoker [facility] Start: 03-15-2020 End: 03-27-2023 Tobacco use and exposure Never used [facility] Start: 03-15-2020 End: 03-27-2023 Alcohol intake Current drinker of alcohol (finding) [facility] Start: 02-03-2020 End: 03-15-2020 History SDOH Alcohol Frequency 2 [facility] Start: 02-18-2018 Alcohol Comment consumes rarely [facility] [employer] [facility] Start: 1994 Sex Assigned At Not on file [facility] Start: 03-11-2019 End: 03-27-2023 Alcohol intake Yes [facility] Exposure to SARS-CoV -2 (event) Not sure [facility] Start: 03-15-2020 End: 03-27-2023 History of Social function [facility] How often to you hav e a drink containing alcohol? Monthly or less [facility] Average Number of Drinks Not on file [facility] Gender identity Identifies as fe male gender (finding) [facility] Goals Date Patient Goal Desired Activity /State Comment on above: 1. The patient will have orthotics that allow her to return to all normal activities with minimal to no restriction d/t right foot and knee pain. Clinical Notes 01-17-2021 to 03-27-2023 MAILE Chung - 03/27/2023 9:30 AM MAILE Barry - 03/19/2022 10:10 AM MAILE Barry - 03/17/2021 2:10 PM Gerardo Herr MD - 02/01/2021 7:00 AM EDT Note Date & Type Note Facility 03-27-2023 History of Presen t illness Narrative History of Present Illness Patient presents to office today for annual. LMP 01/21/23. Patient is using COCP for control--tri cycling due to anxiety on menses and heavy menses. Denies personal hx of blood clots/bleeding disorders. Denies migraines with aura. Denies family hx of breast ca. Denies F/C/N/V/SOB/CP at this time. I have reviewed and updated the following portions of this chart as required. No Known Allergies Past Medical History: Diagnosis Date Irritable bowel syndrome with both constipation and diarrhea 08/29/2017 Menstrual disorder Problems include dysmenorrhea and heavy bleeding. Premenopausal patient Menarche 12 y.o. onset Past Surgical History: Procedure Laterality Date WISDOM TEETH EXTRACTION 11/26/2016 FOOT SURGERY Right 06/28/2015 Family History Problem Relation Age of Onset Other - Specify Mother Allergies Other - Specify Father diverticulitis Asthma Sister Hypertension Maternal Grandmother Cancer- Other Paternal Grandmother Leukemia Colitis Paternal Grandmother Ulcerative Stomach Cancer Paternal Grandmother Lung Cancer Paternal Grandmother Kidney Disease Paternal Grandfather Polycystic Lung Cancer Paternal Grandfather Other - Specify Paternal Grandfather Renal failure Diabetes Paternal Grandfather type 1 Social History Socioeconomic History Marital status: Spouse name: Not on file Number of children: Not on file Years of education: Not on file Highest education level: Not on file Occupational History Not on file Tobacco Use Smoking status: Never Smokeless tobacco: Never Vaping Use Vaping Use: Never used Substance and Sexual Activity Alcohol use: Yes Comment: consumes rarely Drug use: No Sexual activity: Yes Partners: Male control/protection: Condom, Pill Other Topics Concern Service Not Asked Blood Transfusions Not Asked Caffeine Concern Not Asked Occupational Exposure Not Asked Hobby Hazards Not Asked Sleep Concern Not Asked Stress Concern Not Asked Weight Concern Not Asked Special Diet Not Asked Back Care Not Asked Exercise Not Asked Bike Helmet Not Asked Seat Belt Not Asked Domestic Violence Not Asked Social History Narrative Not on file Social Determinants of Health Financial Resource Strain: Not on file Food Insecurity: Not on file Transportation Needs: Not on file Physical Activity: Not on file Stress: Not on file Social Connections: Not on file Intimate Partner Violence: Not on file Housing Stability: Not on file OB History Para Term AB Living 0 0 0 0 0 0 SAB IAB Ectopic Molar Multiple Live Births 0 0 0 0 0 0 Review of Systems Constitutional: Negative for chills, diaphoresis, fatigue and fever. Eyes: Negative for discharge and redness. Respiratory: Negative for cough and shortness of breath. Cardiovascular: Negative for chest pain and leg swelling. Gastrointestinal: Negative for abdominal pain, constipation, diarrhea, nausea and vomiting. Endocrine: Negative for cold intolerance and heat intolerance. Genitourinary: Negative for menstrual problem, pelvic pain, vaginal bleeding, vaginal discharge and vaginal pain. Musculoskeletal: Negative for neck stiffness. Skin: Negative for color change and pallor. Allergic/Immunologic: Negative for environmental allergies and food allergies. Neurological: Negative for dizziness and light-headedness. Hematological: Does not bruise/bleed easily. Psychiatric/Behavioral: Negative for behavioral problems and confusion. Vitals: Blood pressure 110/64, height 5' 2 (1.575 m), weight 160 lb (72.6 kg), last menstrual period 01/21/2023. Physical Exam Vitals and nursing note reviewed. Constitutional: General: She is not in acute distress. Appearance: Normal appearance. She is not ill-appearing. HENT: Head: Normocephalic and atraumatic. Eyes: General: Right eye: No discharge. Left eye: No discharge. Neck: Thyroid: No thyromegaly. Vascular: No JVD. Cardiovascular: Rate and Rhythm: Normal rate and regular rhythm. Heart sounds: Normal heart sounds. Pulmonary: Effort: Pulmonary effort is normal. Breath sounds: Normal breath sounds. Chest: Breasts: Right: No mass, nipple discharge or tenderness. Left: No mass, nipple discharge or tenderness. Abdominal: General: Bowel sounds are normal. There is no distension. Palpations: Abdomen is soft. There is no mass. Tenderness: There is no abdominal tenderness. Genitourinary: General: Normal vulva. Labia: Right: No rash or tenderness. Left: No rash or tenderness. Vagina: Normal. No vaginal discharge. Cervix: No cervical motion tenderness or discharge. Uterus: Normal. Adnexa: Right: No mass or tenderness. Left: No mass or tenderness. Musculoskeletal: General: Normal range of motion. Cervical back: Normal range of motion. Lymphadenopathy: Cervical: No cervical adenopathy. Skin: General: Skin is warm and dry. Neurological: Mental Status: She is alert and oriented to person, place, and time. Psychiatric: Mood and Affect: Mood normal. Speech: Speech normal. Behavior: Behavior normal. Judgment: Judgment normal. Neurological Exam Mental Status Alert. Oriented to person, place, and time. Speech is normal. Assessment and Plan 1. Encounter for gynecological examination without abnormal finding 2. Screening for cervical cancer Pap collected - [facility], LIQUID BASED 3. Encounter for surveillance of contraceptive pills Doing well tri-cycling. No contraindicating dx. I will send in new script with refills to pharmacy of patient's choice. Patient advised to contact the office with any concerns. Patient voiced understanding of all instructions. Return in about 1 year (around 03/27/2024) for Annual with Veronica lew. Thank you. . documented in this encounter [facility] 03-19-2022 History of Presen t illness Narrative History of Present Illness Pt presents today for annual wellness. Pt reports having 2-3 cycles a month x 2-3 months, occurring October, November, December. Due to this pt stopped taking 3 month ocp pack, Quasense. Pt stopped taking this pill mid January and has had one menses since and doing well. Pt was on this particular pill for 5 years. Pt would like to go on a regular monthly pill pack. Educated pt on when to start, how to take, what to do for missed pills and antibiotic use as well as risk of in first pack of new pills. Pt verbalizes understanding. The following portions of the patients of the chart have reviewed and updated as required. Patient Active Problem List Diagnosis Slow transit constipation Dysmenorrhea Irregular periods/menstrual cycles Irritable bowel syndrome with both constipation and diarrhea BMI 29.0-29.9,adult Menorrhagia with regular cycle Hallux valgus (acquired), right foot Flexor hallucis longus tendinitis Pes cavus Fluid level behind tympanic membrane of both ears Murmur History of COVID-19 Abnormal EKG Generalized anxiety disorder Current Outpatient Medications Medication Sig Dispense Refill Iron, Ferrous Sulfate, 142 (45 Fe) MG Tab CR Take 1 tablet by mouth 3 times daily. cetirizine-psuedoephedrine 5-120 MG Tab SR 12 HR tablet Take 1 tablet by mouth 2 times daily. (Patient not taking: No sig reported) 60 tablet 0 levonorgestrel-ethinyl estradiol (Quasense) 0.15-0.03 MG tablet Take one tablet by mouth daily. (Patient not taking: Reported on 03/19/2022) 91 tablet 3 No current facility-administered medications for this visit. Past Medical History: Diagnosis Date Irritable bowel syndrome with both constipation and diarrhea 08/29/2017 Menstrual disorder Problems include dysmenorrhea and heavy bleeding. Premenopausal patient Menarche 12 y.o. onset Past Surgical History: Procedure Laterality Date WISDOM TEETH EXTRACTION 11/26/2016 FOOT SURGERY 06/28/2015 OB History 0 Para 0 Term 0 0 AB 0 Living 0 SAB 0 IAB 0 Ectopic 0 Molar 0 Multiple 0 Live Births 0 Social History Socioeconomic History Marital status: Single Spouse name: Not on file Number of children: Not on file Years of education: Not on file Highest education level: Not on file Occupational History Not on file Tobacco Use Smoking status: Never Smoker Smokeless tobacco: Never Used Vaping Use Vaping Use: Never used Substance and Sexual Activity Alcohol use: Yes Comment: consumes rarely Drug use: No Sexual activity: Yes Partners: Male control/protection: Condom Other Topics Concern Service Not Asked Blood Transfusions Not Asked Caffeine Concern Not Asked Occupational Exposure Not Asked Hobby Hazards Not Asked Sleep Concern Not Asked Stress Concern Not Asked Weight Concern Not Asked Special Diet Not Asked Back Care Not Asked Exercise Not Asked Bike Helmet Not Asked Seat Belt Not Asked Domestic Violence Not Asked Social History Narrative Not on file Social Determinants of Health Financial Resource Strain: Not on file Food Insecurity: Not on file Transportation Needs: Not on file Physical Activity: Not on file Stress: Not on file Social Connections: Not on file Intimate Partner Violence: Not on file Housing Stability: Not on file Family History Problem Relation Age of Onset Other - Specify Mother Allergies Other - Specify Father diverticulitis Asthma Sister Hypertension Maternal Grandmother Cancer- Other Paternal Grandmother Leukemia Colitis Paternal Grandmother Ulcerative Stomach Cancer Paternal Grandmother Lung Cancer Paternal Grandmother Kidney Disease Paternal Grandfather Polycystic Lung Cancer Paternal Grandfather Other - Specify Paternal Grandfather Renal failure Diabetes Paternal Grandfather type 1 Review of Systems Constitutional: Negative. HENT: Negative. Eyes: Negative. Respiratory: Negative. Cardiovascular: Negative. Gastrointestinal: Negative. Endocrine: Negative. Genitourinary: Negative. Musculoskeletal: Negative. Skin: Negative. Allergic/Immunologic: Negative. Neurological: Negative. Hematological: Negative. Psychiatric/Behavioral: Negative. Vitals: Blood pressure 122/66, height 5' 2 (1.575 m), weight 169 lb (76.7 kg), last menstrual period 02/26/2022. Physical Exam Vitals and nursing note reviewed. Constitutional: General: She is not in acute distress. Appearance: Normal appearance. She is well-developed and normal weight. She is not diaphoretic. HENT: Head: Normocephalic and atraumatic. Right Ear: External ear normal. Left Ear: External ear normal. Nose: Nose normal. Eyes: Conjunctiva/sclera: Conjunctivae normal. Neck: Thyroid: No thyroid mass or thyromegaly. Vascular: No JVD. Trachea: No tracheal deviation. Cardiovascular: Rate and Rhythm: Normal rate and regular rhythm. Heart sounds: Normal heart sounds. No murmur heard. No friction rub. No gallop. Pulmonary: Effort: Pulmonary effort is normal. No respiratory distress. Breath sounds: Normal breath sounds. No stridor. No wheezing or rales. Chest: Chest wall: No deformity or tenderness. Breasts: Breasts are symmetrical. Right: No inverted nipple, mass, nipple discharge, skin change or tenderness. Left: No inverted nipple, mass, nipple discharge, skin change or tenderness. Abdominal: General: There is no distension. Palpations: Abdomen is soft. There is no mass. Tenderness: There is no abdominal tenderness. There is no guarding or rebound. Hernia: No hernia is present. Genitourinary: General: Normal vulva. Exam position: Lithotomy position. Labia: Right: No rash, tenderness, lesion or injury. Left: No rash, tenderness, lesion or injury. Vagina: Normal. Cervix: Normal. Uterus: Normal. Adnexa: Right adnexa normal and left adnexa normal. Right: No mass, tenderness or fullness. Left: No mass, tenderness or fullness. Musculoskeletal: General: No tenderness or deformity. Normal range of motion. Cervical back: Normal range of motion and neck supple. Lymphadenopathy: Cervical: No cervical adenopathy. Skin: General: Skin is warm and dry. Coloration: Skin is not pale. Findings: No erythema, lesion or rash. Neurological: Mental Status: She is alert and oriented to person, place, and time. Coordination: Coordination normal. Psychiatric: Mood and Affect: Mood normal. Behavior: Behavior normal. Thought Content: Thought content normal. Judgment: Judgment normal. Neurological Exam Mental Status Alert. Oriented to person, place, and time. Assessment and Plan 1. Encounter for gynecological examination without abnormal finding Pap w/ HPV rfx ASCUS ordered. - [facility]-QUALITY CONS[facility]ANT, LIQUID BASED 2. Initiation of oral contraception - norgestimate-ethinyl estradiol 0.25-35 MG-MCG tablet; Take 1 tablet by mouth daily. Dispense: 84 tablet; Refill: 3 Return in about 1 year (around 03/19/2023) for Annual wellness. documented in this encounter [facility] 03-17-2021 History of Presen t illness Narrative History of Present Illness Pt presents today for annual wellness. Pt doing well. Denies concerns. The following portions of the patients of the chart have reviewed and updated as required. Patient Active Problem List Diagnosis Slow transit constipation Dysmenorrhea Irregular periods/menstrual cycles Irritable bowel syndrome with both constipation and diarrhea BMI 29.0-29.9,adult Menorrhagia with regular cycle Hallux valgus (acquired), right foot Flexor hallucis longus tendinitis Pes cavus Fluid level behind tympanic membrane of both ears Murmur History of COVID-19 Abnormal EKG Generalized anxiety disorder Current Outpatient Medications Medication Sig Dispense Refill Iron, Ferrous Sulfate, 142 (45 Fe) MG Tab CR Take 1 tablet by mouth 3 times daily. levonorgestrel-ethinyl estradiol (Quasense) 0.15-0.03 MG tablet Take one tablet by mouth daily. 28 tablet 0 sertraline (Zoloft) 25 MG tablet Take 1 tablet by mouth daily. Take 1/2 tab PO daily x8 days to start Rx. 30 tablet 1 cetirizine-psuedoephedrine 5-120 MG Tab SR 12 HR tablet Take 1 tablet by mouth 2 times daily. (Patient not taking: Reported on 03/17/2021) 60 tablet 0 No current facility-administered medications for this visit. Past Medical History: Diagnosis Date Irritable bowel syndrome with both constipation and diarrhea 08/29/2017 Menstrual disorder Problems include dysmenorrhea and heavy bleeding. Premenopausal patient Menarche 12 y.o. onset Past Surgical History: Procedure Laterality Date WISDOM TEETH EXTRACTION 11/26/2016 FOOT SURGERY 06/28/2015 OB History 0 Para 0 Term 0 0 AB 0 Living 0 SAB 0 TAB 0 Ectopic 0 Molar 0 Multiple 0 Live Births 0 Social History Socioeconomic History Marital status: Single Spouse name: Not on file Number of children: Not on file Years of education: Not on file Highest education level: Not on file Occupational History Not on file Tobacco Use Smoking status: Never Smoker Smokeless tobacco: Never Used Vaping Use Vaping Use: Never used Substance and Sexual Activity Alcohol use: Yes Comment: consumes rarely Drug use: No Sexual activity: Yes Partners: Male control/protection: Pill Other Topics Concern Service Not Asked Blood Transfusions Not Asked Caffeine Concern Not Asked Occupational Exposure Not Asked Hobby Hazards Not Asked Sleep Concern Not Asked Stress Concern Not Asked Weight Concern Not Asked Special Diet Not Asked Back Care Not Asked Exercise Not Asked Bike Helmet Not Asked Seat Belt Not Asked Domestic Violence Not Asked Social History Narrative Not on file Social Determinants of Health Financial Resource Strain: Difficulty of Paying Living Expenses: Food Insecurity: Worried About Running Out of Food in the Last Year: Ran Out of Food in the Last Year: Transportation Needs: Lack of Transportation (Medical): Lack of Transportation (Non-Medical): Physical Activity: Days of Exercise per Week: Minutes of Exercise per Session: Stress: Feeling of Stress : Social Connections: Frequency of Communication with Friends and Family: Frequency of Social Gatherings with Friends and Family: Attends Bahai Services: Active Member of Clubs or Organizations: Attends Club or Organization Meetings: Marital Status: Intimate Partner Violence: Fear of Current or Ex-Partner: Emotionally Abused: Physically Abused: Sexually Abused: Family History Problem Relation Age of Onset Other - Specify Mother Allergies Other - Specify Father diverticulitis Asthma Sister Hypertension Maternal Grandmother Cancer- Other Paternal Grandmother Leukemia Colitis Paternal Grandmother Ulcerative Stomach Cancer Paternal Grandmother Lung Cancer Paternal Grandmother Kidney Disease Paternal Grandfather Polycystic Lung Cancer Paternal Grandfather Other - Specify Paternal Grandfather Renal failure Diabetes Paternal Grandfather type 1 Review of Systems Constitutional: Negative. HENT: Negative. Eyes: Negative. Respiratory: Negative. Cardiovascular: Negative. Gastrointestinal: Negative. Endocrine: Negative. Genitourinary: Negative. Musculoskeletal: Negative. Skin: Negative. Allergic/Immunologic: Negative. Neurological: Negative. Hematological: Negative. Psychiatric/Behavioral: Negative. Vitals: Blood pressure 122/76, height 5' 2 (1.575 m), weight 158 lb (71.7 kg), last menstrual period 02/20/2021. Physical Exam Vitals and nursing note reviewed. Constitutional: General: She is not in acute distress. Appearance: Normal appearance. She is well-developed and normal weight. She is not diaphoretic. HENT: Head: Normocephalic and atraumatic. Right Ear: External ear normal. Left Ear: External ear normal. Nose: Nose normal. Eyes: Conjunctiva/sclera: Conjunctivae normal. Neck: Thyroid: No thyroid mass or thyromegaly. Vascular: No JVD. Trachea: No tracheal deviation. Cardiovascular: Rate and Rhythm: Normal rate and regular rhythm. Heart sounds: Normal heart sounds. No murmur heard. No friction rub. No gallop. Pulmonary: Effort: Pulmonary effort is normal. No respiratory distress. Breath sounds: Normal breath sounds. No stridor. No wheezing or rales. Chest: Chest wall: No deformity or tenderness. Breasts: Breasts are symmetrical. Right: No inverted nipple, mass, nipple discharge, skin change or tenderness. Left: No inverted nipple, mass, nipple discharge, skin change or tenderness. Abdominal: General: There is no distension. Palpations: Abdomen is soft. There is no mass. Tenderness: There is no abdominal tenderness. There is no guarding or rebound. Hernia: No hernia is present. Genitourinary: General: Normal vulva. Exam position: Lithotomy position. Labia: Right: No rash, tenderness, lesion or injury. Left: No rash, tenderness, lesion or injury. Vagina: Normal. Cervix: Normal. Uterus: Normal. Adnexa: Right adnexa normal and left adnexa normal. Right: No mass, tenderness or fullness. Left: No mass, tenderness or fullness. Musculoskeletal: General: No tenderness or deformity. Normal range of motion. Cervical back: Normal range of motion and neck supple. Lymphadenopathy: Cervical: No cervical adenopathy. Skin: General: Skin is warm and dry. Coloration: Skin is not pale. Findings: No erythema, lesion or rash. Neurological: Mental Status: She is alert and oriented to person, place, and time. Coordination: Coordination normal. Psychiatric: Mood and Affect: Mood normal. Behavior: Behavior normal. Thought Content: Thought content normal. Judgment: Judgment normal. Neurological Exam Mental Status Alert. Assessment and Plan 1. Encounter for gynecological examination without abnormal finding Pap w/ HPV rfx ASCUS ordered. - [facility]-QUALITY CONS[facility]ANT, LIQUID BASED 2. Encounter for surveillance of contraceptive pills - levonorgestrel-ethinyl estradiol (Quasense) 0.15-0.03 MG tablet; Take one tablet by mouth daily. Dispense: 91 tablet; Refill: 3 Return in about 1 year (around 03/17/2022) for Annual wellness. documented in this encounter [facility] 02-01-2021 History of Presen t illness Narrative Niall Dione Yonny comes in today with the following concerns: Chief Complaint Patient presents with Dizziness 2 week f/u Pt notes that starting after her last period 12/06/2020. She has had to trial multiple forms/brands of OCP's because of heavy periods/menorrhagia and recalls of OCP's. 2 weeks ago she was feeling great, and had another episode of fainting while shopping at [employer]. She has a hx of iron deficiency, she has not been taking iron regularly, so she restarted this for one week. She notes that she was feeling pretty good again. She felt that she was tired all of the time, had another episode while at [employer] Saturday01/15/21. She has a high resting heart rate (80-90's). Her BP's have been appropriate. She wears an Apple watch, and HR has been overall normal. Episodes are associated with anxiety and occasional palpitations. Her mother has a hx of rapid HR, but no problematic arrhythmia. She has had a hard time loosing weight, she is anxious with blooddraws and notes that she has been anxious with feeling poorly and more emotional over the past three weeks or so. 02/01/2021: Pt states that she is feeling much better. She is wearing compression hose, eating and drinking regularly, and is completing antibiotics for left ear infection. She would like to discuss starting an anxiety medication because she feels that she is generally on edge. She has been on zoloft as a child/preteen, and tolerating this well. She denies depression, SI/HI. She feels that she does have panic attacks at times. Rapid Heart Rate Dizziness Current Outpatient Medications Medication Sig Dispense Refill Iron, Ferrous Sulfate, 142 (45 Fe) MG Tab CR Take 1 tablet by mouth 3 times daily. levonorgestrel-ethinyl estradiol (Quasense) 0.15-0.03 MG tablet Take one tablet by mouth daily. 1 Package 3 cetirizine-psuedoephedrine 5-120 MG Tab SR 12 HR tablet Take 1 tablet by mouth 2 times daily. 60 tablet 0 sertraline (Zoloft) 25 MG tablet Take 1 tablet by mouth daily. Take 1/2 tab PO daily x8 days to start Rx. 30 tablet 1 No current facility-administered medications for this visit. Social History Socioeconomic History Marital status: Single Spouse name: Not on file Number of children: Not on file Years of education: Not on file Highest education level: Not on file Occupational History Not on file Tobacco Use Smoking status: Never Smoker Smokeless tobacco: Never Used Vaping Use Vaping Use: Never used Substance and Sexual Activity Alcohol use: Yes Comment: consumes rarely Drug use: No Sexual activity: Yes Partners: Male control/protection: Pill Other Topics Concern Not on file Social History Narrative Not on file Social Determinants of Health Financial Resource Strain: Difficulty of Paying Living Expenses: Food Insecurity: Worried About Running Out of Food in the Last Year: Ran Out of Food in the Last Year: Transportation Needs: Lack of Transportation (Medical): Lack of Transportation (Non-Medical): Physical Activity: Days of Exercise per Week: Minutes of Exercise per Session: Stress: Feeling of Stress : Social Connections: Frequency of Communication with Friends and Family: Frequency of Social Gatherings with Friends and Family: Attends Bahai Services: Active Member of Clubs or Organizations: Attends Club or Organization Meetings: Marital Status: Intimate Partner Violence: Fear of Current or Ex-Partner: Emotionally Abused: Physically Abused: Sexually Abused: Past Medical History: Diagnosis Date Irritable bowel syndrome with both constipation and diarrhea 08/29/2017 Menstrual disorder Problems include dysmenorrhea and heavy bleeding. Premenopausal patient Menarche 12 y.o. onset Past Surgical History: Procedure Laterality Date WISDOM TEETH EXTRACTION 11/26/2016 FOOT SURGERY 06/28/2015 Family History Problem Relation Age of Onset Other - Specify Mother Allergies Other - Specify Father diverticulitis Asthma Sister Hypertension Maternal Grandmother Cancer- Other Paternal Grandmother Leukemia Colitis Paternal Grandmother Ulcerative Stomach Cancer Paternal Grandmother Lung Cancer Paternal Grandmother Kidney Disease Paternal Grandfather Polycystic Lung Cancer Paternal Grandfather Other - Specify Paternal Grandfather Renal failure Diabetes Paternal Grandfather type 1 Nurse Note: Review of Systems Constitutional: Negative for chills, fatigue and fever. Patient states that she is not finished with the antibiotic yet but wants to know if after finishing the antibiotic she can have orders to get blood work again HENT: Patient would like Dr. Doan to check her ears again today as she is almost finished with the antibiotic. Respiratory: Negative for chest tightness, shortness of breath and wheezing. Cardiovascular: Negative for chest pain and palpitations. Gastrointestinal: Negative for abdominal pain, constipation, diarrhea and nausea. Genitourinary: Patient states that she is currently on her period and having some cramps but states that she is feeling much better than last time that she was here. Neurological: Negative for dizziness, light-headedness and headaches. Patient states that she occasionally still has some lightheadedness/dizziness but feels that it may be related to her double stigmatism and she is scheduled to see her eye doctor in two weeks. Patient states that since starting to wear her glasses it has seemed to help. Nursing Assessment: Physical Exam BP 130/84 (BP Location: Left arm, BP Position: Sitting) Pulse 127 Temp 98.4 F (36.9 C) (Temporal) Resp 18 Ht 1.575 m (5' 2.01 ) Wt 72.1 kg (159 lb) SpO2 99% BMI 29.07 kg/m Smoking Status Never Smoker Physical Exam Physical Exam Vitals and nursing note reviewed. Constitutional: General: She is not in acute distress. Appearance: Normal appearance. She is not ill-appearing or diaphoretic. Comments: Overweight, anxious HENT: Head: Normocephalic. Right Ear: Ear canal and external ear normal. There is no impacted cerumen. Left Ear: Ear canal and external ear normal. There is no impacted cerumen. Ears: Comments: Scant Bubbles behind TM's, L>R Nose: Nose normal. Mouth/Throat: Mouth: Mucous membranes are moist. Comments: Oropharynx erythematous with post-nasal drip Eyes: General: Right eye: No discharge. Left eye: No discharge. Conjunctiva/sclera: Conjunctivae normal. Pupils: Pupils are equal, round, and reactive to light. Neck: Comments: No thyroid enlargement or nodules Cardiovascular: Rate and Rhythm: Normal rate and regular rhythm. Pulses: Normal pulses. Heart sounds: Murmur (I/ holosystolic murmur at LUSB) heard. No friction rub. No gallop. Pulmonary: Effort: Pulmonary effort is normal. No respiratory distress. Breath sounds: Normal breath sounds. No wheezing or rales. Abdominal: General: Bowel sounds are normal. There is no distension. Palpations: Abdomen is soft. Tenderness: There is no abdominal tenderness. Musculoskeletal: General: Normal range of motion. Cervical back: Normal range of motion. Right lower leg: No edema. Left lower leg: No edema. Lymphadenopathy: Cervical: No cervical adenopathy. Skin: General: Skin is warm and dry. Findings: No erythema or rash. Neurological: General: No focal deficit present. Mental Status: She is alert and oriented to person, place, and time. Cranial Nerves: No cranial nerve deficit. Motor: No weakness. Gait: Gait normal. Deep Tendon Reflexes: Reflexes normal. Psychiatric: Behavior: Behavior normal. Thought Content: Thought content normal. Judgment: Judgment normal. Comments: Moderate anxiety, no depression, no SI/HI. ASSESSMENT & PLAN: ICD-10-CM 1. Murmur R01.1 ECHOCARDIOGRAM TREADMILL STRESS TEST 2. History of COVID-19 Z86.16 ECHOCARDIOGRAM TREADMILL STRESS TEST 3. Abnormal EKG R94.31 ECHOCARDIOGRAM TREADMILL STRESS TEST 4. Generalized anxiety disorder F41.1 sertraline (Zoloft) 25 MG tablet 5. Fluid level behind tympanic membrane of both ears H65.93 cetirizine-psuedoephedrine 5-120 MG Tab SR 12 HR tablet 6. Leukocytosis, unspecified type D72.829 CBC, EDIF, PLATELET Pt's BP and HR are controlled, EKG reviewed with non-specific ST abnormalities. This can be her normal . We will obtain stress echo with hx of COVID this past year. She will start Zoloft and call if she has concerns with this Rx. Nurse Note: Review of Systems Constitutional: Negative for chills, fatigue and fever. Patient states that she is not finished with the antibiotic yet but wants to know if after finishing the antibiotic she can have orders to get blood work again HENT: Patient would like Dr. Doan to check her ears again today as she is almost finished with the antibiotic. Respiratory: Negative for chest tightness, shortness of breath and wheezing. Cardiovascular: Negative for chest pain and palpitations. Gastrointestinal: Negative for abdominal pain, constipation, diarrhea and nausea. Genitourinary: Patient states that she is currently on her period and having some cramps but states that she is feeling much better than last time that she was here. Neurological: Negative for dizziness, light-headedness and headaches. Patient states that she occasionally still has some lightheadedness/dizziness but feels that it may be related to her double stigmatism and she is scheduled to see her eye doctor in two weeks. Patient states that since starting to wear her glasses it has seemed to help. Nursing Assessment: Physical Exam documented in this encounter [facility] 01-17-2021 History of Presen t illness Narrative Niall Blancas comes in today with the following concerns: Chief Complaint Patient presents with Rapid Heart Rate Pt notes that starting after her last period 12/06/2020. She has had to trial multiple forms/brands of OCP's because of heavy periods/menorrhagia and recalls of OCP's. 2 weeks ago she was feeling great, and had another episode of fainting while shopping at [employer]. She has a hx of iron deficiency, she has not been taking iron regularly, so she restarted this for one week. She notes that she was feeling pretty good again. She felt that she was tired all of the time, had another episode while at [employer] Saturday01/15/21. She has a high resting heart rate (80-90's). Her BP's have been appropriate. She wears an Apple watch, and HR has been overall normal. Episodes are associated with anxiety and occasional palpitations. Her mother has a hx of rapid HR, but no problematic arrhythmia. She has had a hard time loosing weight, she is anxious with blooddraws and notes that she has been anxious with feeling poorly and more emotional over the past three weeks or so. Rapid Heart Rate Current Outpatient Medications Medication Sig Dispense Refill levonorgestrel-ethinyl estradiol (Quasense) 0.15-0.03 MG tablet Take one tablet by mouth daily. 1 Package 3 No current facility-administered medications for this visit. Social History Socioeconomic History Marital status: Single Spouse name: Not on file Number of children: Not on file Years of education: Not on file Highest education level: Not on file Occupational History Not on file Tobacco Use Smoking status: Never Smoker Smokeless tobacco: Never Used Vaping Use Vaping Use: Never used Substance and Sexual Activity Alcohol use: Yes Comment: consumes rarely Drug use: No Sexual activity: Yes Partners: Male control/protection: Pill Other Topics Concern Not on file Social History Narrative Not on file Social Determinants of Health Financial Resource Strain: Difficulty of Paying Living Expenses: Food Insecurity: Worried About Running Out of Food in the Last Year: Ran Out of Food in the Last Year: Transportation Needs: Lack of Transportation (Medical): Lack of Transportation (Non-Medical): Physical Activity: Days of Exercise per Week: Minutes of Exercise per Session: Stress: Feeling of Stress : Social Connections: Frequency of Communication with Friends and Family: Frequency of Social Gatherings with Friends and Family: Attends Bahai Services: Active Member of Clubs or Organizations: Attends Club or Organization Meetings: Marital Status: Intimate Partner Violence: Fear of Current or Ex-Partner: Emotionally Abused: Physically Abused: Sexually Abused: Past Medical History: Diagnosis Date Irritable bowel syndrome with both constipation and diarrhea 08/29/2017 Menstrual disorder Problems include dysmenorrhea and heavy bleeding. Premenopausal patient Menarche 12 y.o. onset Past Surgical History: Procedure Laterality Date WISDOM TEETH EXTRACTION 11/26/2016 FOOT SURGERY 06/28/2015 Family History Problem Relation Age of Onset Other - Specify Mother Allergies Other - Specify Father diverticulitis Asthma Sister Hypertension Maternal Grandmother Cancer- Other Paternal Grandmother Leukemia Colitis Paternal Grandmother Ulcerative Stomach Cancer Paternal Grandmother Lung Cancer Paternal Grandmother Kidney Disease Paternal Grandfather Polycystic Lung Cancer Paternal Grandfather Other - Specify Paternal Grandfather Renal failure Diabetes Paternal Grandfather type 1 Nurse Note: Review of Systems Constitutional: Negative for chills, fatigue and fever. Respiratory: Negative for chest tightness, shortness of breath and wheezing. Cardiovascular: Negative for chest pain and palpitations. Gastrointestinal: Negative for abdominal pain, constipation and diarrhea. Genitourinary: Negative for dysuria and flank pain. Musculoskeletal: Negative for back pain and neck pain. Neurological: Positive for light-headedness and headaches. Negative for dizziness. Patient states that she had her period for about 12 days and at the end of it she got hot At work and started seeing spots then passed out. Patient states that she used to have to take iron during her periods. Patient states that she is tired all the time and cold all the time. Patient states at least three headaches weekly. Psychiatric/Behavioral: The patient is nervous/anxious. Patient states that she does have some anxiety Nursing Assessment: Physical Exam BP 144/86 (BP Location: Left arm, BP Position: Sitting) Pulse 119 Temp 98.6 F (37 C) (Temporal) Resp 18 Ht 1.575 m (5' 2.01 ) Wt 71.3 kg (157 lb 3.2 oz) SpO2 99% BMI 28.74 kg/m Smoking Status Never Smoker Physical Exam Physical Exam Vitals and nursing note reviewed. Constitutional: General: She is not in acute distress. Appearance: Normal appearance. She is not ill-appearing or diaphoretic. Comments: Overweight, anxious HENT: Head: Normocephalic. Right Ear: Ear canal and external ear normal. There is no impacted cerumen. Left Ear: Ear canal and external ear normal. There is no impacted cerumen. Ears: Comments: Bubbles behind TM's, L>R Nose: Nose normal. Mouth/Throat: Mouth: Mucous membranes are moist. Comments: Oropharynx erythematous with post-nasal drip Eyes: General: Right eye: No discharge. Left eye: No discharge. Conjunctiva/sclera: Conjunctivae normal. Pupils: Pupils are equal, round, and reactive to light. Neck: Comments: No thyroid enlargement or nodules Cardiovascular: Rate and Rhythm: Normal rate and regular rhythm. Pulses: Normal pulses. Heart sounds: Normal heart sounds. No murmur heard. No friction rub. No gallop. Pulmonary: Effort: Pulmonary effort is normal. No respiratory distress. Breath sounds: Normal breath sounds. No wheezing or rales. Abdominal: General: Bowel sounds are normal. There is no distension. Palpations: Abdomen is soft. Tenderness: There is no abdominal tenderness. Musculoskeletal: General: Normal range of motion. Cervical back: Normal range of motion. Right lower leg: No edema. Left lower leg: No edema. Lymphadenopathy: Cervical: No cervical adenopathy. Skin: General: Skin is warm and dry. Findings: No erythema or rash. Neurological: General: No focal deficit present. Mental Status: She is alert and oriented to person, place, and time. Cranial Nerves: No cranial nerve deficit. Motor: No weakness. Gait: Gait normal. Deep Tendon Reflexes: Reflexes normal. Psychiatric: Behavior: Behavior normal. Thought Content: Thought content normal. Judgment: Judgment normal. Comments: Moderate-severe anxious, tearful at times. ASSESSMENT & PLAN: ICD-10-CM 1. Lightheadedness R42 ECG 2. Screening for condition Z13.9 TSH CBC, EDIF, PLATELET COMPREHENSIVE METABOLIC PANEL HEMOGLOBIN A1C IRON/IRON BINDING/TRANSFERRIN B12 & FOLATE 3. BMI 28.0-28.9,adult Z68.28 4. Irregular periods/menstrual cycles N92.6 5. Menorrhagia with regular cycle N92.0 6. Fluid level behind tympanic membrane of both ears H65.93 DDx includes allergies vs. POTS syndrome vs. Hypoglycemia vs. Arrythmia/SVT vs. Orthostatic hypotension (orthostatics negative today) vs. Hypothyroidism/hyperthyroidism vs. Symptomatic anemia. Plan for labs as above, BP's improved at recheck and normal at home per patient report. She will get compression hose and work to eat small regular meals and increase the salt in her diet. EKG as an outpatient when she is feeling less anxious re: her blood draw per pt request. Next steps can be Holter Monitor or tilt table testing. Completed routine venipuncture with butterfly needle in patient's left AC space. Successful on first attempt and patient tolerated procedure well.Nurse Note: Review of Systems Constitutional: Negative for chills, fatigue and fever. Respiratory: Negative for chest tightness, shortness of breath and wheezing. Cardiovascular: Negative for chest pain and palpitations. Gastrointestinal: Negative for abdominal pain, constipation and diarrhea. Genitourinary: Negative for dysuria and flank pain. Musculoskeletal: Negative for back pain and neck pain. Neurological: Positive for light-headedness and headaches. Negative for dizziness. Patient states that she had her period for about 12 days and at the end of it she got hot At work and started seeing spots then passed out. Patient states that she used to have to take iron during her periods. Patient states that she is tired all the time and cold all the time. Patient states at least three headaches weekly. Psychiatric/Behavioral: The patient is nervous/anxious. Patient states that she does have some anxiety Nursing Assessment: Physical Exam documented in this encounter [facility] 01-17-2021 Miscellaneous Notes Addended by: MAKAYLA KILGORE on: 01/17/2021 03:15 PM Modules accepted: Orders documented in this encounter [facility] Evaluation note Diagnosis Lightheadedness- Primary Dizziness and giddiness Screening for condition Screening for unspecified condition BMI 28.0-28.9,adult Body Mass Index 28.0-28.9, adult Irregular periods/menstrual cycles Irregular menstrual cycle Menorrhagia with regular cycle Excessive or frequent menstruation Fluid level behind tympanic membrane of both ears Iron deficiency anemia due to chronic blood loss Iron deficiency anemia secondary to blood loss (chronic) [facility] Diagnosis Lightheadedness Dizziness and giddiness [facility] Diagnosis Murmur- Primary Undiagnosed cardiac murmurs History of COVID-19 Abnormal EKG Nonspecific abnormal electrocardiogram (ECG) (EKG) Generalized anxiety disorder Fluid level behind tympanic membrane of both ears Leukocytosis, unspecified type [facility] Diagnosis Murmur Undiagnosed cardiac murmurs History of COVID-19 Abnormal EKG Nonspecific abnormal electrocardiogram (ECG) (EKG) [facility] Diagnosis Encounter for gynecological examination without abnormal finding- Primary Routine gynecological examination Encounter for surveillance of contraceptive pills Surveillance of previously prescribed contraceptive pill [facility] Diagnosis Encounter for gynecological examination without abnormal finding- Primary Routine gynecological examination Initiation of oral contraception [facility] Diagnosis Encounter for gynecological examination without abnormal finding- Primary Routine gynecological examination Screening for cervical cancer Screening for malignant neoplasm of the cervix Encounter for surveillance of contraceptive pills Surveillance of previously prescribed contraceptive pill documented in this encounter [facility] Summary Purpose Family History No Family History Records FoundNo Family History Records FoundNo Family History Records FoundNo Family History Records Found Advance Directives No Advanced Directives Records FoundNo Advanced Directives Records FoundNo Advanced Directives Records FoundNo Advanced Directives Records Found History of Present Illness * Lola Kirby, HORIZONTAL [employer] UP OPERATOR-[employer] - 03/15/2020 9:30 AM EDT History of Present Illness Pt presents today for annual wellness. Pt doing well. Denies concerns. The following portions of the patients of the chart have reviewed and updated as required. Patient Active Problem List Diagnosis Slow transit constipation Dysmenorrhea Irregular periods/menstrual cycles Irritable bowel syndrome with both constipation and diarrhea BMI 27.0-27.9,adult Menorrhagia with regular cycle Hallux valgus (acquired), right foot Flexor hallucis longus tendinitis Tarsal tunnel syndrome of right side Pes cavus Current Outpatient Medications Medication Sig Dispense Refill QUASENSE 0.15-0.03 MG Tab Take one tablet by mouth daily. 1 Package 3 No current facility-administered medications for this visit. Past Medical History: Diagnosis Date Irritable bowel syndrome with both constipation and diarrhea 08/29/2017 Menstrual disorder Problems include dysmenorrhea and heavy bleeding. Premenopausal patient Menarche 12 y.o. onset Past Surgical History: Procedure Laterality Date WISDOM TEETH EXTRACTION 11/26/2016 FOOT SURGERY 06/28/2015 OB History 0 Para 0 Term 0 0 AB 0 Living 0 SAB 0 TAB 0 Ectopic 0 Molar 0 Multiple 0 Live Births 0 Social History Socioeconomic History Marital status: Single Spouse name: Not on file Number of children: Not on file Years of education: Not on file Highest education level: Not on file Occupational History Not on file Social Needs Financial resource strain: Not on file Food insecurity Worry: Not on file Inability: Not on file Transportation needs Medical: Not on file Non-medical: Not on file Tobacco Use Smoking status: Never Smoker Smokeless tobacco: Never Used Substance and Sexual Activity Alcohol use: Yes Frequency: Monthly or less Comment: consumes rarely Drug use: No Sexual activity: Yes Partners: Male control/protection: Pill Lifestyle Physical activity Days per week: Not on file Minutes per session: Not on file Stress: Not on file Relationships Social connections Talks on phone: Not on file Gets together: Not on file Attends confucianism service: Not on file Active member of club or organization: Not on file Attends meetings of clubs or organizations: Not on file Relationship status: Not on file Intimate partner violence Fear of current or ex partner: Not on file Emotionally abused: Not on file Physically abused: Not on file Forced sexual activity: Not on file Other Topics Concern Not on file Social History Narrative Not on file Family History Problem Relation Age of Onset Other - Specify Mother Allergies Other - Specify Father diverticulitis Asthma Sister Hypertension Maternal Grandmother Cancer- Other Paternal Grandmother Leukemia Colitis Paternal Grandmother Ulcerative Stomach Cancer Paternal Grandmother Lung Cancer Paternal Grandmother Kidney Disease Paternal Grandfather Polycystic Lung Cancer Paternal Grandfather Other - Specify Paternal Grandfather Renal failure Diabetes Paternal Grandfather type 1 Review of Systems Constitutional: Negative. HENT: Negative. Eyes: Negative. Respiratory: Negative. Cardiovascular: Negative. Gastrointestinal: Negative. Endocrine: Negative. Genitourinary: Negative. Musculoskeletal: Negative. Skin: Negative. Allergic/Immunologic: Negative. Neurological: Negative. Hematological: Negative. Psychiatric/Behavioral: Negative. Vitals: Blood pressure 128/62, temperature 97.8 F (36.6 C), temperature source Temporal, height 5' 2 (1.575 m), weight 162 lb 12.8 oz (73.8 kg), last menstrual period 03/09/2020. Physical Exam Vitals signs and nursing note reviewed. Constitutional: General: She is not in acute distress. Appearance: Normal appearance. She is well-developed and normal weight. She is not diaphoretic. HENT: Head: Normocephalic and atraumatic. Right Ear: External ear normal. Left Ear: External ear normal. Nose: Nose normal. Eyes: Conjunctiva/sclera: Conjunctivae normal. Neck: Musculoskeletal: Normal range of motion and neck supple. Thyroid: No thyroid mass or thyromegaly. Vascular: No JVD. Trachea: No tracheal deviation. Cardiovascular: Rate and Rhythm: Normal rate and regular rhythm. Heart sounds: Normal heart sounds. No murmur. No friction rub. No gallop. Pulmonary: Effort: Pulmonary effort is normal. No respiratory distress. Breath sounds: Normal breath sounds. No stridor. No wheezing or rales. Chest: Chest wall: No deformity or tenderness. Breasts: Breasts are symmetrical. Right: No inverted nipple, mass, nipple discharge, skin change or tenderness. Left: No inverted nipple, mass, nipple discharge, skin change or tenderness. Abdominal: General: There is no distension. Palpations: Abdomen is soft. There is no mass. Tenderness: There is no abdominal tenderness. There is no guarding or rebound. Hernia: No hernia is present. Genitourinary: General: Normal vulva. Exam position: Lithotomy position. Labia: Right: No rash, tenderness, lesion or injury. Left: No rash, tenderness, lesion or injury. Vagina: Normal. Cervix: Normal. Uterus: Normal. Adnexa: Right adnexa normal and left adnexa normal. Right: No mass, tenderness or fullness. Left: No mass, tenderness or fullness. Musculoskeletal: Normal range of motion. General: No tenderness or deformity. Lymphadenopathy: Cervical: No cervical adenopathy. Skin: General: Skin is warm and dry. Coloration: Skin is not pale. Findings: No erythema, lesion or rash. Neurological: Mental Status: She is alert and oriented to person, place, and time. Coordination: Coordination normal. Psychiatric: Mood and Affect: Mood normal. Behavior: Behavior normal. Thought Content: Thought content normal. Judgment: Judgment normal. Neurologic Exam Mental Status Oriented to person, place, and time. Assessment and Plan 1. Encounter for gynecological examination without abnormal finding Pap w/ HPV rfx ASCUS ordered - [facility], LIQUID BASED; Future 2. Encounter for surveillance of contraceptive pills - levonorgestrel-ethinyl estradiol (Quasense) 0.15-0.03 MG tablet; Take one tablet by mouth daily. Dispense: 1 Package; Refill: 3 Return in about 1 year (around 03/15/2021) for Annual wellness. documented in this encounter* Lola Kirby APRN-CNP - 03/11/2019 2:40 PM EDT History of Present Illness Pt presents today for annual wellness. Pt doing well. Denies concerns. Pt is currently on Quasense .15-.03mg three month pack. Pt states she got generic form [facility] and has had more menses than should on generic and requests [facility] for Quasense. The following portions of the patients of the chart have reviewed and updated as required. Patient Active Problem List Diagnosis Slow transit constipation Dysmenorrhea Irregular periods/menstrual cycles Irritable bowel syndrome with both constipation and diarrhea BMI 27.0-27.9,adult Menorrhagia with regular cycle Hallux valgus (acquired), right foot Flexor hallucis longus tendinitis Tarsal tunnel syndrome of right side Pes cavus Current Outpatient Medications Medication Sig Dispense Refill QUASENSE 0.15-0.03 MG Tab Take one tablet by mouth daily. 1 Package 3 No current facility-administered medications for this visit. Past Medical History: Diagnosis Date Irritable bowel syndrome with both constipation and diarrhea 08/29/2017 Menstrual disorder Problems include dysmenorrhea and heavy bleeding. Premenopausal patient Menarche 12 y.o. onset Past Surgical History: Procedure Laterality Date WISDOM TEETH EXTRACTION 11/26/2016 FOOT SURGERY 06/28/2015 OB History 0 Para 0 Term 0 0 AB 0 Living 0 SAB 0 TAB 0 Ectopic 0 Molar 0 Multiple 0 Live Births 0 Social History Socioeconomic History Marital status: Single Spouse name: Not on file Number of children: Not on file Years of education: Not on file Highest education level: Not on file Occupational History Not on file Social Needs Financial resource strain: Not on file Food insecurity: Worry: Not on file Inability: Not on file Transportation needs: Medical: Not on file Non-medical: Not on file Tobacco Use Smoking status: Never Smoker Smokeless tobacco: Never Used Substance and Sexual Activity Alcohol use: Yes Comment: consumes rarely Drug use: No Sexual activity: Not Currently control/protection: Pill Lifestyle Physical activity: Days per week: Not on file Minutes per session: Not on file Stress: Not on file Relationships Social connections: Talks on phone: Not on file Gets together: Not on file Attends confucianism service: Not on file Active member of club or organization: Not on file Attends meetings of clubs or organizations: Not on file Relationship status: Not on file Intimate partner violence: Fear of current or ex partner: Not on file Emotionally abused: Not on file Physically abused: Not on file Forced sexual activity: Not on file Other Topics Concern Not on file Social History Narrative Not on file Family History Problem Relation Age of Onset Other - Specify Mother Allergies Other - Specify Father diverticulitis Asthma Sister Hypertension Maternal Grandmother Cancer- Other Paternal Grandmother Leukemia Colitis Paternal Grandmother Ulcerative Stomach Cancer Paternal Grandmother Lung Cancer Paternal Grandmother Kidney Disease Paternal Grandfather Polycystic Lung Cancer Paternal Grandfather Other - Specify Paternal Grandfather Renal failure Diabetes Paternal Grandfather type 1 Review of Systems Constitutional: Negative. Skin: Negative. HENT: Negative. Eyes: Negative. Cardiovascular: Negative. Respiratory: Negative. Gastrointestinal: Negative. Breast: Negative. Genitourinary: Negative. Musculoskeletal: Negative. Neurological: Negative. Psychiatric: Negative. Allergy/Immunology: Negative. Lymph/Heme: Negative. Endocrine: Negative. Review of Systems Constitutional: Negative. HENT: Negative. Eyes: Negative. Respiratory: Negative. Cardiovascular: Negative. Gastrointestinal: Negative. Genitourinary: Negative. Musculoskeletal: Negative. Skin: Negative. Neurological: Negative. Psychiatric/Behavioral: Negative. Vitals: Blood pressure 120/72, height 5' 2 (1.575 m), weight 158 lb (71.7 kg), last menstrual period 02/15/2019. Physical Exam Constitutional: She is oriented to person, place, and time. She appears well- developed and well-nourished. No distress. HENT: Head: Normocephalic and atraumatic. Right Ear: External ear normal. Left Ear: External ear normal. Nose: Nose normal. Mouth/Throat: Oropharynx is clear and moist and mucous membranes are normal. Eyes: Conjunctivae are normal. Neck: Normal range of motion. Neck supple. No JVD present. No tracheal deviation present. No thyroid mass and no thyromegaly present. Cardiovascular: Normal rate, regular rhythm and normal heart sounds. Exam reveals no gallop and no friction rub. No murmur heard. Pulmonary/Chest: Effort normal and breath sounds normal. No stridor. No respiratory distress. She has no wheezes. She has no rales. She exhibits no tenderness, no bony tenderness and no deformity. Right breast exhibits no inverted nipple, no mass, no nipple discharge, no skin change and no tenderness. Left breast exhibits no inverted nipple, no mass, no nipple discharge, no skin change and no tenderness. Breasts are symmetrical. Abdominal: Soft. Normal appearance. She exhibits no distension and no mass. There is no tenderness.There is no rebound and no guarding. No hernia. Genitourinary: Vagina normal and uterus normal. No labial fusion. There is no rash, tenderness, lesion or injury on the right labia. There is no rash, tenderness, lesion or injury on the left labia. Cervix exhibits no motion tenderness, no discharge and no friability. Right adnexum displays no mass, no tenderness and no fullness. Left adnexum displays no mass, no tenderness and no fullness. Musculoskeletal: Normal range of motion. She exhibits no edema, tenderness or deformity. Lymphadenopathy: She has no cervical adenopathy. Neurological: She is alert and oriented to person, place, and time. Coordination normal. Skin: Skin is warm, dry and intact. No lesion and no rash noted. She is not diaphoretic. No erythema. No pallor. Psychiatric: She has a normal mood and affect. Her behavior is normal. Judgment and thought contentnormal. Nursing note and vitals reviewed. Neurologic Exam Mental Status Oriented to person, place, and time. Assessment and Plan 1. Encounter for gynecological examination without abnormal finding Pap w/ HPV rfx ASCUS ordered - [facility], LIQUID BASED; Future 2. Encounter for surveillance of contraceptive pills - QUASENSE 0.15-0.03 MG Tab; Take one tablet by mouth daily. Dispense: 1 Package; Refill: 3 Return in about 1 year (around 03/11/2020) for Annual wellness. documented in this encounter Assessments Diagnosis Encounter for gynecological examination without abnormal finding- Primary Routine gynecological examination Encounter for surveillance of contraceptive pills Surveillance of previously prescribed contraceptive pill Diagnosis Encounter for gynecological examination without abnormal finding- Primary Routine gynecological examination Encounter for surveillance of contraceptive pills Surveillance of previously prescribed contraceptive pill Reason for Referral Status Reason Specialty Diagnoses / Procedures Referred By Contact Referred To Contact New Request Diagnoses Lightheadedness Procedures ECG Gerardo Doan MD [address] [place] [address] Status Reason Specialty Diagnoses / Procedures Referred By Contact Referred To Contact Auth Not Needed Cardiovascular Medicine Diagnoses [place] History of COVID-19 Abnormal EKG Procedures ECHOCARDIOGRAM TREADMILL STRESS TEST MN ECHO TTHRC R-T 2D W/WO M-MODE REST&STRS CONT ECG MN DOPPLER ECHO HEART,LIMITED,F/ U MN DOPPLER COLOR FLOW VELOCITY MAP Gerardo Doan MD [address] [facility] [place] [address] [facility] Echocardiograp hy [address] [place] [address] Status Reason Specialty Diagnoses / Procedures Referred By Contact Referred To Contact Closed Cardiovascular Medicine Diagnoses [place] History of COVID-19 Abnormal EKG Procedures ECHOCARDIOGRAM TREADMILL STRESS TEST MN ECHO TTHRC R-T 2D W/WO M-MODE REST&STRS CONT ECG MN DOPPLER ECHO HEART,LIMITED,F/U MN DOPPLER COLOR FLOW VELOCITY MAP Gerardo Doan MD [address] [facility] [place] [address] [facility] Echocardiograph y [address] [place] [address] Additional Source Comments INFORMATION SOURCE (unrecogn ized section and content) DATE CREATED AUTHOR 01/22/2018 [facility] DATE CREATED AUTHOR AUTHOR'S ORGANIZ ATION 05/27/2018 [facility] DATE CREATED AUTHOR AUTHOR'S ORGANIZ ATION 02/13/2024 [facility] DATE CREATED AUTHOR AUTHOR'S ORGANIZ ATION 03/13/2024 [facility] EPIC Reason for Visit (unrecogniz ed section and content) Reason Comments Annual Exam Pap 03/11/19 wnl Reason Comments Annual Exam Pap 02/18/18 wnl Want s to discuss ocp Reason Comments Rapid Heart Rate Status Reason Specialty Diagnoses / Procedures Referred By Contact Referred To Contact New Request Diagnoses Lightheadedness Procedures ECG Gerardo Doan MD [address] [facility] [place] [address] Reason Comments Dizziness 2 week f/u Status Reason Specialty Diagnoses / Procedures Referred By Contact Referred To Contact Closed Cardiovascular Medicine Diagnoses [place] History of COVID-19 Abnormal EKG Procedures ECHOCARDIOGRAM TREADMILL STRESS TEST MN ECHO TTHRC R-T 2D W/WO M-MODE REST&STRS CONT ECG MN DOPPLER ECHO HEART,LIMITED,F/U MN DOPPLER COLOR FLOW VELOCITY MAP Gerardo Doan MD [address] [place] [address] [facility] Echocardiograph y [address] [place] [address] Reason Comments Annual Exam Pap 03/15/20 NILM Reason Comments Annual Exam PAP 03/17/21 nilm Contraception Stopped taking ocp 2 months ago- started having 2-3 cycles a month better since off but would like to discuss other options Reason Comments Annual Exam Last pap 03/19/2022 N ILM. LMP 01/21/2023 . Oral control - tricycling - working well. Needs refill. Denies family hx of breast or colon cancer Care Teams (unrecognized sec tion and content) [facility] Reporter Relationship Specialty Start Date End Date Gerardo Doan MD PCP - General Family Medicine 12/21/[address] Reporter Relationship Specialty Start Date End Date Gerardo Doan MD PCP - General Family Medicine 12/21/[address] Reporter Relationship Specialty Start Date End Date Gerardo Doan MD PCP - General Family Medicine 12/21/16 FOR RECORDS PERTAINING TO PATIENTS WHO ARE OR HAVE BEEN ENROLLED IN A CHEMICAL DEPENDENCY/SUBSTANCEABUSE PROGRAM, SOME INFORMATION MAY BE OMITTED. This clinical summary was aggregated from multiple sources. Caution should be exercised in using it in the provision of clinical care. This summary normalizes information from multiple sources, and as a consequence, information in this document may materially change the coding, format and clinical context of patient data. In addition, data may be omitted in some cases. CLINICAL DECISIONS SHOULD BE BASED ON THE PRIMARY CLINICAL RECORDS. [id number] [facility]. provides no warranty or guarantee of the accuracy or completeness of information in this document.
[2024-04-15 09:10] LABS: Age Gdln ACOG Testing Note (.); IGP, rfx Aptima HPV ASCU Note (.)
== END 2024-04-09 20:51 | disposition home or self-care (01) ==
LOC: LAB 20:50
PROVIDERS: Visit Provider Obstetrics & Gynecology
DX: Z01.419 Encounter for gynecological examination (general) (routine) without abnormal findings (principal)
CPT/HCPCS: 88175

== ENCOUNTER 2024-04-23 08:04 | Outpatient (OUT) | payer OTHER, SELFPAY ==
--- NOTE | 2024-04-23 08:08 | US_ITS ---
[address] [address] Patient Name: NIALL HAILE MRN: [id number] date: 1995 Sex: F Assigned Patient Location: [facility] Current Patient Location: [facility] Accession/Order Number: [id number] Exam Date: 04/23/2024 08:09 Report Date: 04/23/2024 10:01 At the request of: EVA SOARES Procedure: US OB anatomy EXAMINATION: US OB anatomy, US OB cervical length HISTORY: ANATOMY COMPARISON: No relevant comparison available. TECHNIQUE: Transabdominal sonographic examination was performed for obstetrical and evaluation. FINDINGS: Number: 1 Heart Rate: 147 bpm H.B. /min Amniotic Fluid Volume: Subjectively normal Placental Location: Anterior with lower margin 4.3 cm from os. Cervix Length: 4.30 cm , closed. ANATOMY: Normal Structures -cerebellum, choroid plexus, cisterna magna, lateral cerebral ventricles, orbits, midline falx, hard palate, four-chamber heart, RVOT, LVOT, stomach, kidneys, bladder, umbilical cord insertion into abdomen, three-vessel cord, cervical spine, thoracic spine, lumbar spine, sacral spine, right upper extremity, left upper extremity, right lower extremity, left lower extremity. SUBOPTIMALLY SEEN: Four-chamber heart and cardiac outflow tracts. ABNORMALITIES: None BIOMETRY: BPD: 4.92 cm; 20 weeks 6 days; 50.30 % HC: 18.84 cm; 21 weeks 1 day; 53.80 % AC: 16.34 cm; 21 weeks 3 days; 61.80 % FL: 3.45 cm; 20 weeks 6 days; 41.20 % EFW:404.06 g; 61.10 % FL/AC: 21.11 FL/BPD: 70.12 HC/AC: 1.15 GESTATIONAL AGE: Age by EDC: 20 weeks 6 days Age by current US: 21 weeks 1 day URSULA by current US: 2024-09-02 URSULA by EDC: 2024-09-04 US/US OB anatomy IMPRESSION: 1. Single live intrauterine with growth detailed above. 2. Suboptimal visualization of the four-chamber heart and cardiac outflow tracts due to position. Electronically authenticated by: DANIELLE ERAZO Date: 04/23/2024 10:01
--- NOTE | 2024-04-23 08:08 | US_ITS ---
[address] [address] Patient Name: NIALL HAILE MRN: [id number] date: 1995 Sex: F Assigned Patient Location: [facility] Current Patient Location: [facility] Accession/Order Number: [id number] Exam Date: 04/23/2024 08:09 Report Date: 04/23/2024 10:01 At the request of: EVA SOARES Procedure: US OB cervical length EXAMINATION: US OB anatomy, US OB cervical length HISTORY: ANATOMY COMPARISON: No relevant comparison available. TECHNIQUE: Transabdominal sonographic examination was performed for obstetrical and evaluation. FINDINGS: Number: 1 Heart Rate: 147 bpm H.B. /min Amniotic Fluid Volume: Subjectively normal Placental Location: Anterior with lower margin 4.3 cm from os. Cervix Length: 4.30 cm , closed. ANATOMY: Normal Structures -cerebellum, choroid plexus, cisterna magna, lateral cerebral ventricles, orbits, midline falx, hard palate, four-chamber heart, RVOT, LVOT, stomach, kidneys, bladder, umbilical cord insertion into abdomen, three-vessel cord, cervical spine, thoracic spine, lumbar spine, sacral spine, right upper extremity, left upper extremity, right lower extremity, left lower extremity. SUBOPTIMALLY SEEN: Four-chamber heart and cardiac outflow tracts. ABNORMALITIES: None BIOMETRY: BPD: 4.92 cm; 20 weeks 6 days; 50.30 % HC: 18.84 cm; 21 weeks 1 day; 53.80 % AC: 16.34 cm; 21 weeks 3 days; 61.80 % FL: 3.45 cm; 20 weeks 6 days; 41.20 % EFW:404.06 g; 61.10 % FL/AC: 21.11 FL/BPD: 70.12 HC/AC: 1.15 GESTATIONAL AGE: Age by EDC: 20 weeks 6 days Age by current US: 21 weeks 1 day URSULA by current US: 2024-09-02 URSULA by EDC: 2024-09-04 US/US OB cervical length IMPRESSION: 1. Single live intrauterine with growth detailed above. 2. Suboptimal visualization of the four-chamber heart and cardiac outflow tracts due to position. Electronically authenticated by: DANIELLE ERAZO Date: 04/23/2024 10:01
--- OUTSIDE RECORDS SUMMARY | 2024-04-23 08:16 | XMS_ITS | CCD ---
Author Organization [facility] Care Team Providers Care Parking Officer Name Role Phone LOLA KIRBY Unavailable Unavailable [...] Unavailable Unavailable Gerardo Doan Primary Care Provider Gerardo Doan Primary Care Provider [phone] Gerardo Doan Primary Care Provider [phone] Gerardo Doan MD Primary Care Provider Kimmy Doan MDah Primary Care Provider [phone] EVA SOARES Attending Unavailable EVA SOARES Referring Unavailable GERARDO DOAN Primary Care Unavailable OLIMPIA GERARDO Primary Care Unavailable LOLA KIRBY Referring Unavailable VERONICA LERMA Attending Unavailable EVA SOARES Attending Unavailable JOEL ESTES Attending Unavailable EVA SOARES Attending Unavailable Medications Current Medications Medication Drug [...] RPR Ql (S) Non-Reactive Normal NONREACTIVE A [facility] Comment on above: Result Comment: Test ing performed at [place] [address] Performed By: #### A RPR, RUBL, ACBC, FX, GHIV #### [place] [address] RUBELLA SCREENon 02-10-2024 RUBELLA SCREEN Positive Normal POSITIVE [facility] Comment on above: Result Comment: POSI TIVE RESULT INDICATES PRESUMED IMMUNITY Testing performed at [place] [address] Performed By: #### F X #### [place] [address] HEP B SURFACE AGon HEP B SURFACE AG Negative Normal NEGATIVE [place] Comment on above: Performed By: #### F X #### [place] [address] HEP C ABon 02-07-2024 HEP C AB Negative Normal NEGATIVE [facility] Comment on above: Performed By: #### F X #### [place] [address] CBCon 02-06-2024 ABSOLUTE BAS 0.0 10*3/uL Normal 0.0-0.2 [facility] Comment on above: Result Comment: Test ing performed at [place] [address] Performed By: #### A RPR, RUBL, ACBC, FX, GHIV #### [place] [address] ABSOLUTE EOS 0.1 10*3/uL Normal 0.0-0.7 [facility] Comment on above: Performed By: #### A RPR, RUBL, ACBC, FX, GHIV #### Testing performed at [place] [id number] ABSOLUTE NEUTROPHIL COUNT 9.0 10*3/uL High 1.4-6.5 [facility] Comment on above: Performed By: #### A RPR, RUBL, ACBC, FX, GHIV #### Testing performed at [place] [id number] Basophils/100 WBC (Bld) 0.2 % Normal 0.0-2.0 [facility] Comment on above: Performed By: #### A RPR, RUBL, ACBC, FX, GHIV #### [place] [address] DTYPE AUTO DIFF Normal [facility] Comment on above: Performed By: #### A RPR, RUBL, ACBC, FX, GHIV #### [place] [address] Eosinophils/100 WBC (Bld) 0.6 % Normal 0.0-11.0 [facility] Comment on above: Performed By: #### A RPR, RUBL, ACBC, FX, GHIV #### Testing performed at [place] [id number] Lymphocytes (Bld) [#/Vol] 2.2 10*3/uL Normal 1.2-3.4 [facility] Comment on above: Performed By: #### A RPR, RUBL, ACBC, FX, GHIV #### Testing performed at [place] [id number] Lymphocytes/100 WBC (Bld) 18.4 % Low 20.0-55.0 [facility] Comment on above: Performed By: #### A RPR, RUBL, ACBC, FX, GHIV #### Testing performed at [place] [id number] Monocytes (Bld) [#/Vol] 0.8 10*3/uL High 0.0-0.7 [facility] Comment on above: Performed By: #### A RPR, RUBL, ACBC, FX, GHIV #### Testing performed at [place] [id number] Monocytes/100 WBC (Bld) 6.3 % Normal 0.0-10.0 [facility] Comment on above: Performed By: #### A RPR, RUBL, ACBC, FX, GHIV #### [place] [address] Neutrophils/100 WBC (Bld) 74.5 % Normal 37.0-75.0 [facility] Comment on above: Performed By: #### A RPR, RUBL, ACBC, FX, GHIV #### [place] [address] Erythrocyte distribution width (RBC) [Ratio] 13.5 % Normal 11.5-14.5 [facility] Comment on above: Performed By: #### A RPR, RUBL, ACBC, FX, GHIV #### [place] [address] Hematocrit (Bld) [Volume fraction] 36.2 % Normal 36.0-48.0 [facility] Comment on above: Performed By: #### A RPR, RUBL, ACBC, FX, GHIV #### [place] [address] Hemoglobin (Bld) [Mass/Vol] 12.0 g/dL Normal 12.0-16.0 [facility] Comment on above: Performed By: #### A RPR, RUBL, ACBC, FX, GHIV #### Testing performed at [place] [id number] MCH (RBC) [Entitic mass] 29.6 pg Normal 26.0-35.0 [facility] Comment on above: Performed By: #### A RPR, RUBL, ACBC, FX, GHIV #### [place] [address] MCHC (RBC) [Mass/Vol] 33.0 g/dL Normal 27.0-37.0 [facility] Comment on above: Performed By: #### A RPR, RUBL, ACBC, FX, GHIV #### [place] [address] MCV (RBC) [Entitic vol] 89.7 fL Normal 80.0-100.0 [facility] Comment on above: Performed By: #### A RPR, RUBL, ACBC, FX, GHIV #### [place] [address] Platelet mean volume (Bld) [Entitic vol] 6.9 fL Low 7.4-11.0 [facility] Comment on above: Performed By: #### A RPR, RUBL, ACBC, FX, GHIV #### [place] [address] Platelets (Bld) [#/Vol] 406 10*3/uL High 130-400 [facility] Comment on above: Performed By: #### A RPR, RUBL, ACBC, FX, GHIV #### [place] [address] RBC (Bld) [#/Vol] 4.04 10*6/uL Normal 4.0-5.4 [facility] Comment on above: Performed By: #### A RPR, RUBL, ACBC, FX, GHIV #### [place] [address] WBC (Bld) [#/Vol] 12.1 10*3/uL High 3.6-11.0 [facility] Comment on above: Performed By: #### A RPR, RUBL, ACBC, FX, GHIV #### [place] [address] FAX REQUESTon 02-06-2024 FAX TO [phone] Normal [facility] Comment on above: Result Comment: Test ing performed at [place] [address] Performed By: #### F X #### Testing performed at [address] [address] FAX TO [phone] Normal [facility] Comment on above: Result Comment: Test ing performed at [place] [address] Performed By: #### F X #### [place] [address] FAX TO [phone] [facility] Comment on above: Result Comment: Test ing performed at [place] [address] Performed By: #### F X #### [place] [address] FAX TO [phone] [facility] Comment on above: Result Comment: Test ing performed at [place] [address] Performed By: #### F X #### [place] [address] FAX TO [phone] [facility] Comment on above: Result Comment: Test ing performed at [place] [address] Performed By: #### A RPR, RUBL, ACBC, FX, GHIV #### [place] [address] HEMOGLOBIN A1Con 02-06-2024 Glucose [Mass/Vol] 100 mg/dL Normal [facility] Comment on above: Result Comment: Test ing performed at [place] [address] Performed By: #### F X #### [place] [address] HbA1c (Bld) [Mass fraction] 5.1 % Normal 0-6 [facility] Comment on above: Result Comment: NORMAL <5.7% PREDIABETES 5.7-6.4% DIABETES 6.5% OR HIGHER Performed By: #### F X #### [place] [address] HIV 1,2 ABon 02-06-2024 HIV 1,2 Non-Reactive Normal NONREACTIVE [facility] Comment on above: Result Comment: Test ing performed at [place] [address] Performed By: #### A RPR, RUBL, ACBC, FX, GHIV #### [place] [address] TYPE AND SCREEN CROSSMATCH C ONVERTIBLEon 02-06-2024 TYPE AND SCREEN CROSSMATCH CONVERTIBLE WORKUP EXPIRES 02/09/2024,2359 ABO/RH(D) O POSITIVE ANTIBODY SCREEN NEGATIVE ARM BAND NUMBER [id number] Testing performed at [address] Comment on above: Performed By: #### T SCC #### [place] [address] URINE CULTUREon 02-06-2024 Bacteria identified Cx Nom (U) SPECIMEN DESCRIPTION URINE CLEAN CATCH CULTURE NO PATHOGENS ISOLATED * Result Note: Testing performed at [place] [address] * REPORT STATUS 02/08/2024 * Result Note: FINAL * [facility] Comment on above: Performed By: #### A URNC #### [place] [address] PAP IG,RFX HPV ASCUon 2022 . . [facility] . Comment [facility] Comment on above: Result Comment: (NOT E) The HPV DNA reflex criteria were not met with this specimen result therefore, no HPV testing was performed. No. of containers..01 ThinPrep Vial DIAGNOSIS: Comment [facility] Comment on above: Result Comment: NEGA TIVE FOR INTRAEPITHELIAL LESION OR MALIGNANCY. NOTE: Comment [facility] Comment on above: Result Comment: (NOT E) The Pap smear is a screening test designed to aid in the detection of premalignant and malignant conditions of the uterine cervix. It is not a diagnostic procedure and should not be used as the sole means of detecting cervical cancer. Both false-positive and false-negative reports do occur. PERFORMED BY: Comment [facility] Comment on above: Result Comment: Josue Carrero Image Scientist (ASCP) SPECIMEN ADEQUACY: Comment [facility] Comment on above: Result Comment: (NOT E) Satisfactory for evaluation. Endocervical and/or squamous metaplastic cells (endocervical component) are present. TEST METHODOLOGY: Comment Normal [facility] Comment on above: Result Comment: (NOT E) This liquid based ThinPrep(R) pap test was screened with the use of an image guided system. PERFORMED AT [facility] ECHOCARDIOGRAM TREADMILL STR ESS TESTOrdered By: Gerardo [...] were monitored. An Echocardiogram was performed by aerospace technician in four stages in quad fashion. At peak stress, four selected images were obtained and placed side by side with resting images for comparison. Stress Test Details Test: Exercise stress testing was performed using a Rodger protocol. HR Resting HR: 109 bpm Max Heart Rate (APMHR): 194.503063 bpm Max HR Achieved: 200 bpm Target HR (85% APMHR): 164.603768 bpm % of APMHR: 103.09 Recovery HR: [...] 13.70 METs Scale: Active Angina Score: None [facility] User, Interfaces - 02/18/2021 12:14 AM [...] were monitored. An Echocardiogram was performed by aerospace technician in four stages in quad fashion. At peak stress, four selected images were obtained and placed side by side with resting images for comparison. Stress Test Details Test: Exercise stress testing was performed using a Rodger protocol. HR Resting HR: 109 bpmMax Heart Rate (APMHR): 194.804969 bpm Max HR Achieved: 200 bpmTarget HR (85% APMHR): 164.978287 bpm % of APMHR: 103.09 Recovery HR: [...] Scale: Active Angina Score: None [facility] ECGOrdered By: Gerardo Doan on 01-27-2021 [facility] B12 & FOLATEOrdered By: Yessy Doan on 01-17-2021 Cobalamin (Vitamin B12) [Mass/Vol] 383 pg/mL 239 - 931 PG/ML [facility] Folate [Mass/Vol] 19.7 ng/mL [facility] Comment on above: Testing performed at [place], [place] [address] [facility] CBC, EDIF, PLATELETOrdered B y: Gerardo Doan on 01-17-2021 ABSOLUTE BASOPHIL COUNT 0.1 10*3/uL 0.0 - 0.2 10*3/uL [facility] Comment on above: Testing performed at [place], [place] [address] Basophils/100 WBC (Bld) 0.4 % 0.0 - 2.0 % [facility] Differential cell count method Nom (Bld) AUTO DIFF % [facility] Eosinophils (Bld) [#/Vol] 0.10 10*3/uL 0.0 - 0.7 10*3/uL [facility] Eosinophils/100 WBC (Bld) 0.6 % 0.0 - 11.0 % [facility] Erythrocyte distribution width (RBC) [Ratio] 13.2 % 11.5 - 14.5 % [facility] Hematocrit (Bld) [Volume fraction] 39.3 % 36.0 - 48.0 % [facility] Hemoglobin (Bld) [Mass/Vol] 13.6 g/dL [facility] Interpretation and review of laboratory results Abnormal [facility] Lymphocytes (Bld) [#/Vol] 1.90 10*3/uL 1.2 - 3.4 10*3/uL [facility] Lymphocytes/100 WBC (Bld) 13.6 % Low 20.0 - 55.0 % [facility] MCH (RBC) [Entitic mass] 31.1 pg 26.0 - 35.0 PG [facility] MCHC (RBC) [Mass/Vol] 34.7 g/dL [facility] MCV (RBC) [Entitic vol] 89.6 fL [facility] Monocytes (Bld) [#/Vol] 0.5 10*3/uL 0.0 - 0.7 10*3/uL [facility] Monocytes/100 WBC (Bld) 3.5 % 0.0 - 10.0 % [facility] Neutrophils (Bld) [#/Vol] 11.3 10*3/uL High 1.4 - 6.5 10*3/uL [facility] Neutrophils/100 WBC (Bld) 81.9 % High 37.0 - 75.0 % [facility] Platelet mean volume (Bld) [Entitic vol] 7.6 fL [facility] Platelets (Bld) [#/Vol] 483 10*3/uL High 130.0 - 400.0 10*3/uL [facility] RBC (Bld) [#/Vol] 4.38 10*6/uL 4.0 - 5.4 10*6/uL [facility] WBC (Bld) [#/Vol] 13.8 10*3/uL High 3.6 - 11.0 10*3/uL [facility] COMPREHENSIVE METABOLIC PANE LOrdered By: Gerardo Doan on 01-17-2021 Albumin [Mass/Vol] 4.6 G/dl 3.5 - 5.0 G/dl [facility] Albumin/Globulin [Mass ratio] 1.4 {ratio} [facility] ALP [Catalytic activity/Vol] 57 U/L [facility] ALT [Catalytic activity/Vol] 18 U/L <35 IU/L [facility] AST [Catalytic activity/Vol] 21 U/L [facility] Bilirubin [Mass/Vol] 0.4 mg/dL [facility] Calcium [Mass/Vol] 10.3 mg/dL High [facility] Chloride [Moles/Vol] 106 mmol/L [facility] Comment on above: Please note: Triglyc eride levels of 600mg/dL or higher may positively bias chloride results by approximately 2.1 mmol CO2 [Moles/Vol] 21 mmol/L Low [facility] Creatinine [Mass/Vol] 0.50 mg/dL Low [facility] GFR COMMENT Average GFR for 20-2 9 years old = 116. [facility] Comment on above: Chronic Kidney disea se, GFR = <60. Kidney failure, GFR = <15. The GFR estimate is not adjusted for extreme body surface area or acute process, nor has it been validated for women or ethnic groups other than and . Testing performed at [place], [place] [address] GFR/1.73 sq M.predicted among blacks MDRD (S/P/Bld) [Vol rate/Area] mL/min/{1.73_m2} ml/min/1.73sq.m [facility] GFR/1.73 sq M.predicted among non-blacks MDRD (S/P/Bld) [Vol rate/Area] mL/min/{1.73_m2} ml/min/1.73sq.m [facility] Glucose post fast [Mass/Vol] 105 mg/dL High [facility] Comment on above: NORMAL <100 mg/dL PREDIABETES 101-126 mg/dL DIABETES 126 mg/dL or higher Interpretation and review of laboratory results Abnormal [facility] Potassium [Moles/Vol] 4.1 mmol/L [facility] Protein [Mass/Vol] 8.0 g/dL [facility] Sodium [Moles/Vol] 138 mmol/L [facility] Urea nitrogen [Mass/Vol] 8 mg/dL [facility] HEMOGLOBIN [id number] By: Sa edi Doan on 01-17-2021 Glucose [Mass/Vol] 100 mg/dL [facility] Comment on above: Testing performed at [place] [address] HbA1c (Bld) [Mass fraction] 5.1 % 0 - 6 % [facility] Comment on above: NORMAL <5.7% PREDIABETES 5.7-6.4% DIABETES 6.5% OR HIGHER [facility] IRON/IRON BINDING/TRANSFERRI NOrdered By: Gerardo Doan on 01-17-2021 Interpretation and review of laboratory results Abnormal [facility] Iron [Mass/Vol] 145 ug/dL [facility] Iron binding capacity [Mass/Vol] 505 High [facility] Iron saturation [Mass fraction] 29 % [facility] Comment on above: Testing performed at [address] TSHOrdered By: Gerardo Doan on 01-17-2021 TSH Qn 1.420 m[IU]/L [facility] Comment on above: Testing performed at [address] PROGRESSon 04-25-2018 [facility] NOTES Normal [facility] PROGRESSon 02-19-2018 [facility] NOTES Normal [facility] PROGRESSon 02-13-2018 [facility] NOTES Normal [facility] PAP, ThinPrep, rfx HPV ASCUS on 02-15-2017 Comment Normal [facility] Comment on above: Result Comment: IGLB P CPT CODE AUTOMATION: (NOTE)IGLBP CPT CODE AUTOMATION: This liquid based ThinPrep(R) pap test was screenedwith theIGLBP CPT CODE AUTOMATION: use of an image guided system. Performed By: #### L PRAS ####[facility] [address] [place] [address] lab Director: Dr. Lauro Merino, DO Diagnosis Normal [facility] Comment on above: Result Comment: Comm ent(NOTE)NEGATIVE FOR INTRAEPITHELIAL LESION AND MALIGNANCY.CELLULAR CHANGES ASSOCIATED WITH INFLAMMATION ARE PRESENT.THIS SPECIMEN WAS RESCREENED PART OF OUR METAL CHECKER PROGRAM. Performed By: #### L PRAS ####[facility] [address] [place] [address] Lab Director: Dr. Lauro Merino DO IGLBP CPT COde Comment [facility] Comment on above: Performed By: #### L PRAS ####[facility] [address] [place] [address] Lab Director: Dr. Lauro Mernio DO Note [facility] Comment on above: Result Comment: Comm ent(NOTE)The Pap smear is a screening test designed to aid in the detection ofpremalignant and malignant conditions of the uterine cervix. It isnot a diagnostic procedure and should not be used as the sole meansof detecting cervical cancer. Both false-positive and false-negativereports do occur. Performed By: #### L PRAS ####[facility] [address] [place] [address] lab Director: Dr. Lauro Merino DO Performed By Comment Kareen Lucero, Image Scientist [facility] Comment on above: Performed By: #### L PRAS ####[facility] [address] [place] [address] lab Director: Dr. Lauro Merino DO Performed By [facility] Comment on above: Performed By: #### L PRAS ####[facility] [address] [place] [address] Lab Director: Dr. Lauro Merino DO QC Reviewed By Comment Dedra Yip , Supervisory Image Scientist (ASCP) [facility] Comment on above: Performed By: #### L PRAS ####[facility] [address] [place] [address] lab Director: Dr. Lauro Merino DO Spec Adequacy [facility] Comment on above: Result Comment: Comm ent(NOTE)Satisfactory for evaluation. Endocervical and/or squamous metaplasticcells (endocervical component) are present. Performed By: #### L PRAS ####[facility] [address] [place] [address] lab Director: Dr. Lauro Merino DO Specimen # [id number] [facility] Comment on above: Performed By: #### L PRAS ####[facility] [address] [place] [address] lab Director: Dr. Lauro Merino DO . [facility] Comment on above: Result Comment: Comm ent(NOTE)The HPV DNA reflex criteria were not met with this specimen resulttherefore, no HPV testing was performed.No. of containers..01 CYTYC Thin Prep VialPERFORMED AT [facility] Performed By: #### L PRAS ####[facility] [address] [place] [address] lab Director: Dr. Lauro Merino DO . . [facility] Comment on above: Performed By: #### L PRAS ####[facility] [address] [place] [address] lab Director: Dr. Lauro Merino DO Vital Signs Date Time Vital Sign Value Performing Clinician Benny jacob 03-27-2023 09:16-0400 Body height 157.5 cm Veronica Hay GAMING SURVEILLANCE OBSERVER-MECHATRONICS TECHNOLOGIST Work Phone: [facility] 03-27-2023 09:16-0400 Body mass index (BMI) [Ratio] 29.26 kg/m2 Ami Hay GAMING SURVEILLANCE OBSERVER-MECHATRONICS TECHNOLOGIST Work Phone: [facility] 03-27-2023 09:16-0400 Body weight 72.58 kg Ami Hay GAMING SURVEILLANCE OBSERVER-MECHATRONICS TECHNOLOGIST Work Phone: [facility] 03-27-2023 09:16-0400 Diastolic blood pressure 64 mm[Hg] Ami Hay GAMING SURVEILLANCE OBSERVER-MECHATRONICS TECHNOLOGIST Work Phone: [facility] 03-27-2023 09:16-0400 Systolic blood pressure 110 mm[Hg] Ami Hay GAMING SURVEILLANCE OBSERVER-MECHATRONICS TECHNOLOGIST Work Phone: [facility] 03-19-2022 10:05-0400 Body height 157.5 cm Lola Solaresam GAMING SURVEILLANCE OBSERVER-MECHATRONICS TECHNOLOGIST Work Phone: [facility] 03-19-2022 10:05-0400 Body mass index (BMI) [Ratio] 30.91 kg/m2 Lola Kofi GAMING SURVEILLANCE OBSERVER-MECHATRONICS TECHNOLOGIST Work Phone: [facility] 03-19-2022 10:05-0400 Body weight 76.66 kg Lola Kofi GAMING SURVEILLANCE OBSERVER-MECHATRONICS TECHNOLOGIST Work Phone: [facility] 03-19-2022 10:05-0400 Diastolic blood pressure 66 mm[Hg] Lola Kofi GAMING SURVEILLANCE OBSERVER-MECHATRONICS TECHNOLOGIST Work Phone: [facility] 03-19-2022 10:05-0400 Systolic blood pressure 122 mm[Hg] Lola Kofi GAMING SURVEILLANCE OBSERVER-MECHATRONICS TECHNOLOGIST Work Phone: [facility] 03-17-2021 13:57-0400 Body height 157.5 cm Lola Kofi GAMING SURVEILLANCE OBSERVER-MECHATRONICS TECHNOLOGIST Work Phone: [facility] 03-17-2021 13:57-0400 Body mass index (BMI) [Ratio] 28.9 kg/m2 Lola Kofi GAMING SURVEILLANCE OBSERVER-MECHATRONICS TECHNOLOGIST Work Phone: [facility] 03-17-2021 13:57-0400 Body weight 71.67 kg Lola Kofi GAMING SURVEILLANCE OBSERVER-MECHATRONICS TECHNOLOGIST Work Phone: [facility] 03-17-2021 13:57-0400 Diastolic blood pressure 76 mm[Hg] Lola Kofi GAMING SURVEILLANCE OBSERVER-MECHATRONICS TECHNOLOGIST Work Phone: [facility] 03-17-2021 13:57-0400 Systolic blood pressure 122 mm[Hg] Lola Kofi GAMING SURVEILLANCE OBSERVER-MECHATRONICS TECHNOLOGIST Work Phone: [facility] 02-01-2021 07:05-0400 Body height 157.5 cm Gerardo Doan MD Work Phone: [facility] 02-01-2021 07:05-0400 Body mass index (BMI) [Ratio] 29.07 kg/m2 Gerardo Doan MD Work Phone: [facility] 02-01-2021 07:05-0400 Body temperature 98.4 [degF] Gerardo Doan MD Work Phone: [facility] 02-01-2021 07:05-0400 Body weight 72.12 kg Gerardo Doan MD Work Phone: [facility] 02-01-2021 07:05-0400 Diastolic blood pressure 84 mm[Hg] Gerardo Doan MD Work Phone: [facility] 02-01-2021 07:05-0400 Heart rate 127 /min Gerardo Doan MD Work Phone: [facility] 02-01-2021 07:05-0400 Respiratory rate 18 /min Gerardo Doan MD Work Phone: [facility] 02-01-2021 07:05-0400 SaO2% (BldA) [Mass fraction] 99 % Gerardo Doan MD Work Phone: [facility] 02-01-2021 07:05-0400 Systolic blood pressure 130 mm[Hg] Gerardo Doan MD Work Phone: [facility] 01-17-2021 09:37-0400 Diastolic blood pressure 80 mm[Hg] Gerardo Doan MD Work Phone: [facility] 01-17-2021 09:37-0400 Heart rate 111 /min Gerardo Doan MD Work Phone: [facility] 01-17-2021 09:37-0400 Systolic blood pressure 130 mm[Hg] Gerardo Doan MD Work Phone: [facility] 01-17-2021 08:17-0400 Body height 157.5 cm Gerardo Doan MD Work Phone: [facility] 01-17-2021 08:17-0400 Body mass index (BMI) [Ratio] 28.74 kg/m2 Gerardo Doan MD Work Phone: [facility] 01-17-2021 08:17-0400 Body temperature 98.6 [degF] Gerardo Doan MD Work Phone: [facility] 01-17-2021 08:17-0400 Body weight 71.31 kg Gerardo Doan MD Work Phone: [facility] 01-17-2021 08:17-0400 Respiratory rate 18 /min Gerardo Doan MD Work Phone: [facility] 01-17-2021 08:17-0400 SaO2% (BldA) [Mass fraction] 99 % Gerardo Doan MD Work Phone: [facility] 03-15-2020 09:24-0400 BMI (Body Mass Index) 29.78 kg/m2 [facility] 03-15-2020 09:24-0400 Body Temperature 97.81 [degF] [facility] 03-15-2020 09:24-0400 Body weight 73.85 kg [facility] 03-15-2020 09:24-0400 BP Diastolic 62 mm[Hg] [facility] 03-15-2020 09:24-0400 BP Systolic 128 mm[Hg] [facility] 03-15-2020 09:24-0400 Height 157.5 cm [facility] 03-11-2019 14:45-0400 BMI (Body Mass Index) 28.9 kg/m2 [facility] 03-11-2019 14:45-0400 Body weight 71.67 kg [facility] 03-11-2019 14:45-0400 BP Diastolic 72 mm[Hg] [facility] 03-11-2019 14:45-0400 BP Systolic 120 mm[Hg] [facility] 03-11-2019 14:45-0400 Height 157.5 cm [facility] Encounters Encounter Date Encounter Type Care Provider Facility Start: 04-09-2024 End: 04-09-2024 ambulatory EVA RODGER Not Available Start: 03-12-2024 End: 03-12-2024 ambulatory JOEL ESTES Not Available Start: 02-13-2024 End: 02-13-2024 ambulatory EVA RODGER Not Available Start: 02-06-2024 ambulatory EVA RODGER [facility] Start: 01-23-2024 End: 01-23-2024 ambulatory EVA RODGER Not Available Start: 03-27-2023 End: 03-27-2023 Patient encounter status Veronica Stokes Jorge GAMING SURVEILLANCE OBSERVER-MECHATRONICS TECHNOLOGIST Work Phone: [facility] Work Phone: Start: 03-27-2023 End: 03-27-2023 Periodic preventive med est patient 18-39 yrs Veronica Stokes Jorge GAMING SURVEILLANCE OBSERVER-MECHATRONICS TECHNOLOGIST Work Phone: [facility] PINKING MACHINE OPERATOR Comment on above: Encounter for gyneco logical examination without abnormal finding (Primary Dx); Screening for cervical cancer; Encounter for surveillance of contraceptive pills Start: 03-27-2023 ambulatory [facility] Start: 03-19-2022 End: 03-19-2022 Patient encounter status Lola Kirby GAMING SURVEILLANCE OBSERVER-MECHATRONICS TECHNOLOGIST Work Phone: [facility] PINKING MACHINE OPERATOR Start: 03-19-2022 End: 03-19-2022 Periodic preventive med est patient 18-39 yrs Lola Kirby GAMING SURVEILLANCE OBSERVER-MECHATRONICS TECHNOLOGIST Work Phone: [facility] PINKING MACHINE OPERATOR Comment on above: Encounter for gyneco logical examination without abnormal finding (Primary Dx); Initiation of oral contraception Start: 03-17-2021 End: 03-17-2021 Patient encounter status Lola Kirby GAMING SURVEILLANCE OBSERVER-MECHATRONICS TECHNOLOGIST Work Phone: [facility] PINKING MACHINE OPERATOR Start: 03-17-2021 End: 03-17-2021 Periodic preventive med est patient 18-39 yrs Lola Kirby GAMING SURVEILLANCE OBSERVER-MECHATRONICS TECHNOLOGIST Work Phone: [facility] PINKING MACHINE OPERATOR Comment on above: Encounter for gyneco logical examination without abnormal finding (Primary Dx); Encounter for surveillance of contraceptive pills Start: 02-17-2021 End: 02-17-2021 Subsequent hospital visit by physician Gerardo Doan MD Work Phone: [employer] [facility] Comment on above: Arrived Start: 02-01-2021 End: 02-01-2021 Office outpatient visit 25 minutes Gerardo Doan MD Work Phone: [facility] Comment on above: Murmur (Primary Dx); History of COVID-19; Abnormal EKG; Generalized anxiety disorder; Fluid level behind tympanic membrane of both ears; Leukocytosis, unspecified type Start: 01-27-2021 End: 01-27-2021 Subsequent hospital visit by physician Gerardo Doan MD Work Phone: [employer] [facility] Comment on above: Arrived Start: 01-17-2021 End: 01-17-2021 Office outpatient visit 25 minutes Gerardo Doan MD Work Phone: [facility] Comment on above: Lightheadedness (Jaycee mandi Dx); Screening for condition; BMI 28.0-28.9,adult; Irregular periods/menstrual cycles; Menorrhagia with regular cycle; Fluid level behind tympanic membrane of both ears; Iron deficiency anemia due to chronic blood loss Start: 03-15-2020 End: 03-15-2020 Periodic preventive med est patient 18-39 yrs Lola Kirby 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 Comment on above: Encounter for gyneco logical examination without abnormal finding (Primary Dx); Encounter for surveillance of contraceptive pills Start: 03-11-2019 End: 03-11-2019 Periodic preventive med est patient 18-39 yrs Lola Kirby 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 Comment on above: Encounter for gyneco logical examination without abnormal finding (Primary Dx); Encounter for surveillance of contraceptive pills Start: 11-19-2018 End: 11-19-2018 Patient encounter procedure Other Other [facility] Start: 04-25-2018 Patient encounter EMILIANO Seay [facility] Start: 02-19-2018 Patient encounter EMILIANO Seay [facility] Start: 02-13-2018 Patient encounter EMILIANO Seay [facility] Start: 02-15-2017 End: 02-16-2017 Ambulatory LOLA KIRBY [place] [facility] Procedures Date Procedure Procedure Detail Performing Clinician Start: 03-17-2021 PAP IG, RFX HPV ASCU Sh iggy Kirby GAMING SURVEILLANCE OBSERVER-MECHATRONICS TECHNOLOGIST Work Phone: Start: 02-17-2021 Echo tthrc r-t [...] Detail Author Start: 04-19-2027 Tetanus vaccination [facility] Start: 04-01-2024 End: 04-01-2024 Patient encounter procedure 04/01/2024 8:50 AM EDT Office Visit [facility] PINKING MACHINE OPERATOR [address] [place] [phone] Veronica Lerma GAMING SURVEILLANCE OBSERVER-MECHATRONICS TECHNOLOGIST [address] [place] [phone] [facility] PINKING MACHINE OPERATOR Start: 03-27-2024 Screening for malign ant neoplasm of cervix CERVICAL CANCER SCREENING DISCUSSION [facility] Start: 03-29-2023 Influenza vaccination INFLUENZA VACC INE (#1) [facility] Start: 03-21-2023 End: 03-21-2023 Patient encounter procedure 03/21/2023 Office Visit PINKING MACHINE OPERATOR Lola Kirby GAMING SURVEILLANCE OBSERVER-MECHATRONICS TECHNOLOGIST [id number] [place] [address] [facility] PINKING MACHINE OPERATOR Start: 03-19-2023 Screening for malign ant neoplasm of cervix CERVICAL CANCER SCREENING DISCUSSION [facility] Start: 03-29-2022 Influenza vaccination INFLUENZA VACC INE (#1) [facility] Start: 03-23-2022 End: 03-23-2022 Patient encounter procedure 03/23/2022 Office Visit PINKING MACHINE OPERATOR Lola Kirby, GAMING SURVEILLANCE OBSERVER-MECHATRONICS TECHNOLOGIST [id number] [place], [facility] PINKING MACHINE OPERATOR Start: 03-17-2022 Screening for malign ant neoplasm of cervix CERVICAL CANCER SCREENING DISCUSSION [facility] Start: 03-29-2021 Influenza vaccination [facility] Start: 03-17-2021 End: 03-17-2021 Patient encounter procedure 03/17/2021 Office Visit PINKING MACHINE OPERATOR Lola Kirby, GAMING SURVEILLANCE OBSERVER-MECHATRONICS TECHNOLOGIST [id number] [place] [address] [facility] PINKING MACHINE OPERATOR Start: 03-17-2021 End: 03-17-2021 Office Visit 03/17/2021 Office Visit PINKING MACHINE OPERATOR Lola Kirby GAMING SURVEILLANCE OBSERVER-MECHATRONICS TECHNOLOGIST [id number] [place] [address] [facility] PINKING MACHINE OPERATOR Start: 03-15-2021 Screening for malign ant neoplasm of cervix CERVICAL CANCER SCREENING DISCUSSION [facility] Start: 02-28-2021 End: 02-28-2021 Patient encounter procedure 02/28/2021 Office Visit Family Medicine Gerardo Doan MD [address] [place] [facility] [place] [address] [facility] Start: 02-01-2021 End: 02-01-2022 Complete blood count with white cell differential, automated CBC, EDIF, PLATELET Lab Routine Leukocytosis, unspecified type Expected: 02/01/2021, Expires: 02/01/2022 [facility] Comment on above: Expected: 02/01/2021 , Expires: 02/01/2022 Start: 02-01-2021 End: 02-01-2022 Exercise stress echocardiography ECHOCARDIOGRAM TREADMILL STRESS TEST Stress Echocardiography Routine Murmur History of COVID-19 Abnormal EKG Expected: 02/01/2021, Expires: 02/01/2022 [facility] Comment on above: Expected: 02/01/2021 , Expires: 02/01/2022 Start: 02-01-2021 End: 02-01-2021 Patient encounter procedure 02/01/2021 Office Visit Family Medicine Gerardo Doan MD [address] [place] [address] [facility] Start: 01-17-2021 End: 01-17-2022 Standard ECG ECG ECG Routine Lightheadedness Expected: 01/17/2021, Expires: 01/17/2022 [facility] Comment on above: Expected: 01/17/2021 , Expires: 01/17/2022 Start: 06-15-2020 End: 03-15-2021 [facility] CYTOLOGY-ROAD MONKEY, LIQUID BASED [facility] CYTOLOGY-ROAD MONKEY, LIQUID BASED Cytology Routine Encounter for gynecological examination without abnormal finding Expected: 06/15/2020, Expires: 03/15/2021 [facility] Comment on above: Expected: 06/15/2020 , Expires: 03/15/2021 Start: 03-29-2020 Influenza vaccination INFLUENZA VACC INE (#1) [facility] Start: 03-11-2020 Screening for malign ant neoplasm of cervix CERVICAL CANCER SCREENING DISCUSSION [facility] Start: 03-29-2019 Influenza vaccination [facility] Start: 03-11-2019 End: 03-11-2020 [facility] CYTOLOGY-ROAD MONKEY, LIQUID BASED [facility] CYTOLOGY-ROAD MONKEY, LIQUID BASED Cytology Routine Encounter for gynecological examination without abnormal finding Expected: 03/11/2019, Expires: 03/11/2020 [facility] Comment on above: Expected: 03/11/2019 , Expires: 03/11/2020 Start: 02-20-2019 End: 02-20-2019 Office Visit 02/20/2019 Office Visit PINKING MACHINE OPERATOR Lola Kirby, GAMING SURVEILLANCE OBSERVER-MECHATRONICS TECHNOLOGIST [id number] [place] [address] [phone] [facility] PINKING MACHINE OPERATOR Start: 02-18-2019 Screening for malign ant neoplasm of cervix PAP SMEAR DISCUSSION [facility] Start: 02-15-2018 Screening for malign ant neoplasm of cervix PAP SMEAR DISCUSSION [facility] Start: 01-26-2016 Tetanus vaccination [facility] Start: 2013 Third diphtheria, te tanus and acellular pertussis (DTaP) vaccination TDAP (ADULT) [facility] Start: 2010 Screening for Chlamy andrey trachomatis CHLAMYDIA SCREEN [facility] Start: 2009 HIV screening HIV SCREENING DISCUSSI ON [facility] Start: 11-09-2007 HIV screening HIV SCREENING DISCUSSI ON [facility] Start: 2006 COVID-19 VACCINE (1) COVID-19 VACCIN E (1) [facility] Start: 05-10-1995 COVID-19 VACCINE (#1) COVID-19 VACCI NE (#1) [facility] Start: 1994 GONORRHEA SCREEN GONORRHEA SCREEN [facility] Start: 1994 Hepatitis C antibody , confirmatory test HEPATITIS C VIRUS SCREENING [facility] Start: 1994 Hepatitis C screening HEPATITI S C VIRUS SCREENING [facility] PAP IG, RFX HPV ASCU PAP IG, RFX HPV ASCU LAB SEND OUTS Routine 03/15/2020 9:50 AM [facility] PAP IG, RFX HPV ASCU PAP IG, RFX HPV ASCU Cytology Routine 03/17/2021 1:55 PM [facility] Work Phone: PAP IG, RFX HPV ASCU PAP IG, RFX HPV ASCU Cytology Routine 03/19/2022 10:06 AM [facility] PAP IG, RFX HPV ASCU PAP IG, RFX HPV ASCU Cytology Routine 03/27/2023 9:25 AM [facility] Immunizations Immunization Date Immunization Notes Care Provider Fa cility 05-20-2019 influenza virus vacc ine, unspecified formulation Lola Kirby [facility] 05-09-2016 influenza virus vacc ine, unspecified formulation Other Other [facility] 04-24-2012 meningococcal polysaccharide (groups A, C, Y and W-135) diphtheria toxoid conjugate vaccine (MCV4P) Other [facility] 09-02-2007 human papilloma viru s vaccine, bivalent Other Other [facility] 05-02-2007 human papilloma viru s vaccine, bivalent Other Other [facility] 02-11-2007 human papilloma viru s vaccine, bivalent Other Other [facility] 02-11-2007 meningococcal polysaccharide (groups A, C, Y and W-135) diphtheria toxoid conjugate vaccine (MCV4P) Other Other [facility] 02-11-2007 varicella virus vaccine Other [facility] 01-25-2006 tetanus toxoid, redu cate diphtheria toxoid, and acellular pertussis vaccine, adsorbed Other Other [facility] 03-03-2001 varicella virus vaccine Other [facility] 11-14-1999 measles, mumps and r ubella virus vaccine Other [facility] 06-15-1996 diphtheria, tetanus toxoids and acellular pertussis vaccine Other [facility] 03-10-1996 haemophilus influenz ae type b vaccine, conjugate unspecified formulation Other Other [facility] 03-10-1996 measles, mumps and r ubella virus vaccine Other [facility] 08-13-1995 hepatitis B vaccine, pediatric or pediatric/adolescent dosage Other Other [facility] 04-11-1995 poliovirus vaccine, inactivated Other Other [facility] 02-01-1995 hepatitis B vaccine, pediatric or pediatric/adolescent dosage Other [facility] 1994 hepatitis B vaccine, pediatric or pediatric/adolescent dosage Other [facility] Payers Date Payer Category Payer Unknown [id number] 2021 Unknown [id number] 2016 Unknown 2014 Unknown [id number] 1994 Unknown [id number] 1994 Unknown [id number] 1994 Unknown [id number] 1994 Unknown [id number] 1994 Unknown [id number] [id number] 1994 Unknown [id number] Social History Date Type Detail Facility Start: 03-15-2020 End: 03-27-2023 Tobacco smoking status NHIS Never smoker [facility] Start: 03-15-2020 End: 03-27-2023 Tobacco use and exposure Never used [facility] Start: 03-15-2020 End: 03-27-2023 Alcohol intake Current drinker of alcohol (finding) [facility] Start: 02-03-2020 End: 03-15-2020 History SDOH Alcohol Frequency 2 [facility] Start: 02-18-2018 Alcohol Comment consumes rarely [facility] Start: 1994 Sex Assigned At Not on file [employer] Start: 03-11-2019 End: 03-27-2023 Alcohol intake Yes [facility] Exposure to SARS-CoV -2 (event) Not sure [facility] Start: 03-15-2020 End: 03-27-2023 History of Social function [facility] How often to you hav e a drink containing alcohol? Monthly or less [facility] Average Number of Drinks Not on file [facility] Gender identity Identifies as fe male gender (finding) [facility] Goals Date Patient Goal Desired Activity /State [...] Screening for cervical cancer Pap collected - [facility] CYTOLOGY-ROAD MONKEY, LIQUID BASED 3. Encounter for surveillance of contraceptive pills Doing well tri-cycling. No contraindicating dx. I will send in new script with refills to pharmacy of patient's choice. Patient advised to contact the office with any concerns. Patient voiced understanding of all instructions. Return in about 1 year (around 03/27/2024) for Annual with Veronica lew. Thank you. . documented in this encounter [facility] 03-19-2022 History of Presen t illness Narrative [...] Pap w/ HPV rfx ASCUS ordered. - [facility] CYTOLOGY-ROAD MONKEY, LIQUID BASED 2. Initiation of oral contraception - norgestimate-ethinyl estradiol 0.25-35 MG-MCG tablet; Take 1 tablet by mouth daily. Dispense: 84 tablet; Refill: 3 Return in about 1 year (around 03/19/2023) for Annual wellness. documented in this encounter [facility] 03-17-2021 History of Presen t illness Narrative [...] Social Gatherings with Friends and Family: Attends [employer] Services: Active Member of Clubs or Organizations: [...] Pap w/ HPV rfx ASCUS ordered. - [facility] CYTOLOGY-ROAD MONKEY, LIQUID BASED 2. Encounter for surveillance of contraceptive pills - levonorgestrel-ethinyl estradiol (Quasense) 0.15-0.03 MG tablet; Take one tablet by mouth daily. Dispense: 91 tablet; Refill: 3 Return in about 1 year (around 03/17/2022) for Annual wellness. documented in this encounter [facility] 02-01-2021 History of Presen t illness Narrative [...] another episode of fainting while shopping at [employer]. She has a hx of iron deficiency, she has not been taking iron regularly, so she restarted this for one week. She notes that she was feeling pretty good again. She felt that she was tired all of the time, had another episode while at [employer] Saturday01/15/21. She has a high resting heart [...] Social Gatherings with Friends and Family: Attends Catholic Services: Active Member of Clubs or Organizations: [...] Assessment: Physical Exam documented in this encounter [facility] 01-17-2021 History of Presen t illness Narrative [...] another episode of fainting while shopping at [employer]. She has a hx of iron deficiency, she has not been taking iron regularly, so she restarted this for one week. She notes that she was feeling pretty good again. She felt that she was tired all of the time, had another episode while at [employer] Saturday01/15/21. She has a high resting heart [...] Social Gatherings with Friends and Family: Attends Catholic Services: Active Member of Clubs or Organizations: [...] Assessment: Physical Exam documented in this encounter [facility] 01-17-2021 Miscellaneous Notes Addended by: MAKAYLA KILGORE on: 01/17/2021 03:15 PM Modules accepted: Orders documented in this encounter [facility] Evaluation note Diagnosis Lightheadedness- Primary Dizziness and [...] blood loss (chronic) [facility] Diagnosis Lightheadedness Dizziness and giddiness documented [facility] Diagnosis Murmur- Primary Undiagnosed cardiac murmurs History of COVID-19 Abnormal EKG Nonspecific abnormal electrocardiogram (ECG) (EKG) Generalized anxiety disorder Fluid level behind tympanic membrane of both ears Leukocytosis, unspecified type [facility] Diagnosis Murmur Undiagnosed cardiac murmurs History of COVID-19 Abnormal EKG Nonspecific abnormal electrocardiogram (ECG) (EKG) documented [facility] Diagnosis Encounter for gynecological examination without abnormal finding- Primary Routine gynecological examination Encounter for surveillance of contraceptive pills Surveillance of previously prescribed contraceptive pill documented [facility] Diagnosis Encounter for gynecological examination without abnormal finding- Primary Routine gynecological examination Initiation of oral contraception [facility] Diagnosis Encounter for gynecological examination without abnormal finding- Primary Routine gynecological examination Screening for cervical cancer Screening for malignant neoplasm of the cervix Encounter for surveillance of contraceptive pills Surveillance of previously prescribed contraceptive pill documented in this encounter [facility] Summary Purpose Family History No Family History Records FoundNo Family History Records FoundNo Family History Records FoundNo Family History Records Found Advance Directives No Advanced Directives Records FoundNo Advanced Directives Records FoundNo Advanced Directives Records FoundNo Advanced Directives Records Found History of Present Illness * Lola Kirby, GAMING SURVEILLANCE OBSERVER-MECHATRONICS TECHNOLOGIST - 03/15/2020 9:30 AM EDT History of [...] file Gets together: Not on file Attends mormon service: Not on file Active member of [...] w/ HPV rfx ASCUS ordered - [facility] CYTOLOGY-ROAD MONKEY, LIQUID BASED; Future 2. Encounter for surveillance [...] file Gets together: Not on file Attends mormon service: Not on file Active member of [...] w/ HPV rfx ASCUS ordered - [facility] CYTOLOGY-ROAD MONKEY, LIQUID BASED; Future 2. Encounter for surveillance [...] Procedures ECG Gerardo Doan MD [address] [place] [address] Status Reason Specialty Diagnoses / Procedures Referred By Contact Referred To Contact Auth Not Needed Cardiovascular Medicine Diagnoses Murmur History of COVID-19 Abnormal EKG Procedures ECHOCARDIOGRAM TREADMILL STRESS TEST TX ECHO TTHRC R-T 2D W/WO M-MODE REST&STRS CONT ECG TX DOPPLER ECHO HEART,LIMITED,F/ U TX DOPPLER COLOR FLOW VELOCITY MAP Gerardo Doan MD [address] [place] [address] [facility] Echocardiograp hy [address] [place] [address] Status Reason Specialty Diagnoses / Procedures Referred By Contact Referred To Contact Closed Cardiovascular Medicine Diagnoses Murmur History of COVID-19 Abnormal EKG Procedures ECHOCARDIOGRAM TREADMILL STRESS TEST TX ECHO TTHRC R-T 2D W/WO M-MODE REST&STRS CONT ECG TX DOPPLER ECHO HEART,LIMITED,F/U TX DOPPLER COLOR FLOW VELOCITY MAP Gerardo Doan MD [address] [place] [address] [facility] Echocardiograph y [address] [place] [address] Additional Source Comments INFORMATION SOURCE (unrecogn ized section and content) DATE CREATED AUTHOR 01/22/2018 [facility] DATE CREATED AUTHOR AUTHOR'S ORGANIZ ATION 05/27/2018 [facility] DATE CREATED AUTHOR AUTHOR'S ORGANIZ ATION 02/13/2024 [facility] DATE CREATED AUTHOR AUTHOR'S ORGANIZ ATION 04/11/2024 [facility] EPIC Reason for Visit (unrecogniz ed section and content) Reason Comments Annual Exam Pap 03/11/19 wnl Reason Comments Annual Exam Pap 02/18/18 wnl Want s to discuss ocp Reason Comments Rapid Heart Rate Status Reason Specialty Diagnoses / Procedures Referred By Contact Referred To Contact New Request Diagnoses Lightheadedness Procedures ECG Gerardo Doan MD [address] [place] [address] Reason Comments Dizziness 2 week f/u Status Reason Specialty Diagnoses / Procedures Referred By Contact Referred To Contact Closed Cardiovascular Medicine Diagnoses Murmur History of COVID-19 Abnormal EKG Procedures ECHOCARDIOGRAM TREADMILL STRESS TEST TX ECHO TTHRC R-T 2D W/WO M-MODE REST&STRS CONT ECG TX DOPPLER ECHO HEART,LIMITED,F/U TX DOPPLER COLOR FLOW VELOCITY MAP Gerardo Doan MD [address] [place] [address] [facility] Echocardiograph y [address] [place] [address] Reason Comments Annual Exam Pap 03/15/20 NILM [...] Care Teams (unrecognized sec tion and content) Parking Officer Relationship Specialty Start Date End Date Gerardo Doan MD PCP - General Family Medicine 12/21/16 Parking Officer Relationship Specialty Start Date End Date Gerardo Doan MD PCP - General Family Medicine 12/21/16 Parking Officer Relationship Specialty Start Date End Date Gerardo [...] BE BASED ON THE PRIMARY CLINICAL RECORDS. [facility] provides no warranty or guarantee of the accuracy or completeness of information in this document.
== END 2024-04-23 08:05 | disposition home or self-care (01) ==
LOC: NOMS 08:05
PROVIDERS: Visit Provider Obstetrics & Gynecology
DX: Z36.89 Encounter for other specified antenatal screening (principal); Z3A.21 21 weeks gestation of pregnancy
CPT/HCPCS: 76805; 76817

== ENCOUNTER 2024-05-07 09:57 | Outpatient (OUT) | payer OTHER, SELFPAY ==
--- NOTE | 2024-05-07 10:02 | US_ITS ---
[address] [address] Patient Name: NIALL HAILE MRN: [id number] date: 1995 Sex: F Assigned Patient Location: [facility] Current Patient Location: Accession/Order Number: [id number] Exam Date: 05/07/2024 10:02 Report Date: 05/08/2024 04:12 At the request of: EVA SOARES Procedure: US OB follow up EXAMINATION: US OB follow up HISTORY: INCOMPLETE ANATOMY COMPARISON: Ultrasound OB anatomy 04/23/2024 FINDINGS: Presentation: Cephalic Heart rate: 150 bpm Anatomy: RVOT/LVOT, four-chamber heart observed without appreciable abnormality. GA: 22 weeks 6 days URSULA: 09/04/2024 US/US OB follow up IMPRESSION: 1. Single live intrauterine . 2. Adequate visualization of the four-chamber heart and cardiac outflow tracts. No appreciable abnormality. Electronically authenticated by: DANIELLE ERAZO Date: 05/08/2024 04:12
--- OUTSIDE RECORDS SUMMARY | 2024-05-07 10:03 | XMS_ITS | CCD ---
Author Organization [facility] Care Team Providers Care Specialty Sales Representative Name Role Phone LOLA KIRBY Unavailable Unavailable [...] Care Provider Gerardo Doan Primary Care Provider [phone] Gerardo Doan Primary Care Provider [phone] Kimmy Doan MDah Primary Care Provider Kimmy Doan MDah Primary Care Provider EVA SORAES Attending Unavailable EVA SOARES Referring Unavailable GERARDO [...] RPR Ql (S) Non-Reactive Normal NONREACTIVE A [facility] Comment on above: Result Comment: Test ing performed at [place] [address] Performed By: #### A RPR, RUBL, ACBC, FX, GHIV #### [place] [address] RUBELLA SCREENon 02-10-2024 RUBELLA SCREEN Positive Normal POSITIVE [facility] Comment on above: Result Comment: POSI TIVE RESULT INDICATES PRESUMED IMMUNITY Testing performed at [place] [address] Performed By: #### F X #### [place] [address] HEP B SURFACE AGon HEP B SURFACE AG Negative Normal NEGATIVE [facility] Comment on above: Performed By: #### F X #### [place] [address] HEP C ABon 02-07-2024 HEP C AB Negative Normal NEGATIVE [facility] Comment on above: Performed By: #### F X #### [place] [address] CBCon 02-06-2024 ABSOLUTE BAS 0.0 10*3/uL Normal 0.0-0.2 [facility] Comment on above: Result Comment: Test ing performed at [place] [address] Performed By: #### A RPR, RUBL, ACBC, FX, GHIV #### [place] [address] ABSOLUTE EOS 0.1 10*3/uL Normal 0.0-0.7 [facility] Comment on above: Performed By: #### A RPR, RUBL, ACBC, FX, GHIV #### Testing performed at [place] [id number] ABSOLUTE NEUTROPHIL COUNT 9.0 10*3/uL High 1.4-6.5 [facility] Comment on above: Performed By: #### A RPR, RUBL, ACBC, FX, GHIV #### Testing performed at [place] [id number] Basophils/100 WBC (Bld) 0.2 % Normal 0.0-2.0 [facility] Comment on above: Performed By: #### A RPR, RUBL, ACBC, FX, GHIV #### [place] [address] DTYPE AUTO DIFF Normal [facility] Comment on above: Performed By: #### A RPR, RUBL, ACBC, FX, GHIV #### [place] [address] Eosinophils/100 WBC (Bld) 0.6 % Normal 0.0-11.0 [facility] Comment on above: Performed By: #### A RPR, RUBL, ACBC, FX, GHIV #### Testing performed at [place] [id number] Lymphocytes (Bld) [#/Vol] 2.2 10*3/uL Normal 1.2-3.4 [facility] Comment on above: Performed By: #### A RPR, RUBL, ACBC, FX, GHIV #### Testing performed at [place] [id number] Lymphocytes/100 WBC (Bld) 18.4 % Low 20.0-55.0 [facility] Comment on above: Performed By: #### A RPR, RUBL, ACBC, FX, GHIV #### Testing performed at [place] [id number] Monocytes (Bld) [#/Vol] 0.8 10*3/uL High 0.0-0.7 [facility] Comment on above: Performed By: #### A RPR, RUBL, ACBC, FX, GHIV #### Testing performed at [place] [id number] Monocytes/100 WBC (Bld) 6.3 % Normal 0.0-10.0 [facility] Comment on above: Performed By: #### A RPR, RUBL, ACBC, FX, GHIV #### [place] [address] Neutrophils/100 WBC (Bld) 74.5 % Normal 37.0-75.0 [facility] Comment on above: Performed By: #### A RPR, RUBL, ACBC, FX, GHIV #### [place] [address] Erythrocyte distribution width (RBC) [Ratio] 13.5 % Normal 11.5-14.5 [facility] Comment on above: Performed By: #### A RPR, RUBL, ACBC, FX, GHIV #### [place] [address] Hematocrit (Bld) [Volume fraction] 36.2 % Normal 36.0-48.0 [facility] Comment on above: Performed By: #### A RPR, RUBL, ACBC, FX, GHIV #### [place] [address] Hemoglobin (Bld) [Mass/Vol] 12.0 g/dL Normal 12.0-16.0 [facility] Comment on above: Performed By: #### A RPR, RUBL, ACBC, FX, GHIV #### Testing performed at [place] [id number] MCH (RBC) [Entitic mass] 29.6 pg Normal 26.0-35.0 [facility] Comment on above: Performed By: #### A RPR, RUBL, ACBC, FX, GHIV #### [place] [address] MCHC (RBC) [Mass/Vol] 33.0 g/dL Normal 27.0-37.0 [facility] Comment on above: Performed By: #### A RPR, RUBL, ACBC, FX, GHIV #### [place] [address] MCV (RBC) [Entitic vol] 89.7 fL Normal 80.0-100.0 [facility] Comment on above: Performed By: #### A RPR, RUBL, ACBC, FX, GHIV #### [place] [address] Platelet mean volume (Bld) [Entitic vol] 6.9 fL Low 7.4-11.0 [facility] Comment on above: Performed By: #### A RPR, RUBL, ACBC, FX, GHIV #### [place] [address] Platelets (Bld) [#/Vol] 406 10*3/uL High 130-400 [facility] Comment on above: Performed By: #### A RPR, RUBL, ACBC, FX, GHIV #### [place] [address] RBC (Bld) [#/Vol] 4.04 10*6/uL Normal 4.0-5.4 [facility] Comment on above: Performed By: #### A RPR, RUBL, ACBC, FX, GHIV #### [place] [address] WBC (Bld) [#/Vol] 12.1 10*3/uL High 3.6-11.0 [facility] Comment on above: Performed By: #### A RPR, RUBL, ACBC, FX, GHIV #### [place] [address] FAX REQUESTon 02-06-2024 FAX TO [phone] Normal [facility] Comment on above: Result Comment: Test ing performed at [place] [address] Performed By: #### F X #### Testing performed at [address] [address] FAX TO [phone] Normal [facility] Comment on above: Result Comment: Test ing performed at [place] [address] Performed By: #### F X #### [place] [address] FAX TO [phone] [facility] Comment on above: Result Comment: Test ing performed at [place] [address] Performed By: #### F X #### [place] [address] FAX TO [phone] [facility] Comment on above: Result Comment: Test ing performed at [place] [address] Performed By: #### F X #### [place] [address] FAX TO [phone] [facility] Comment on above: Result Comment: Test ing performed at [place] [address] Performed By: #### A RPR, RUBL, ACBC, FX, GHIV #### [place] [address] HEMOGLOBIN A1Con 02-06-2024 Glucose [Mass/Vol] 100 mg/dL Normal [facility] Comment on above: Result Comment: Test ing performed at [place] [address] Performed By: #### F X #### [place] [address] HbA1c (Bld) [Mass fraction] 5.1 % Normal 0-6 [facility] Comment on above: Result Comment: NORMAL <5.7% PREDIABETES 5.7-6.4% DIABETES 6.5% OR HIGHER Performed By: #### F X #### [place] [address] HIV 1,2 ABon 02-06-2024 HIV 1,2 Non-Reactive Normal NONREACTIVE [facility] Comment on above: Result Comment: Test ing performed at [place] [address] Performed By: #### A RPR, RUBL, ACBC, FX, GHIV #### [place] [address] TYPE AND SCREEN CROSSMATCH C ONVERTIBLEon 02-06-2024 TYPE AND SCREEN CROSSMATCH CONVERTIBLE WORKUP EXPIRES 02/09/2024,2359 ABO/RH(D) O POSITIVE ANTIBODY SCREEN NEGATIVE ARM BAND NUMBER [id number] Testing performed at [address] Comment on above: Performed By: #### T SCC #### [place] [address] URINE CULTUREon 02-06-2024 Bacteria identified Cx Nom (U) SPECIMEN DESCRIPTION URINE CLEAN CATCH CULTURE NO PATHOGENS ISOLATED * Result Note: Testing performed at [place] [address] * REPORT STATUS 02/08/2024 * Result Note: FINAL * [facility] Comment on above: Performed By: #### A URNC #### [place] [address] PAP IG,RFX HPV ASCUon 2022 . . [facility] . Comment [facility] Comment on above: Result Comment: (NOT E) The HPV DNA reflex criteria were not met with this specimen result therefore, no HPV testing was performed. No. of containers..01 ThinPrep Vial DIAGNOSIS: Comment [facility] Comment on above: Result Comment: NEGA TIVE FOR INTRAEPITHELIAL LESION OR MALIGNANCY. NOTE: Comment [facility] Comment on above: Result Comment: (NOT E) The Pap smear is a screening test designed to aid in the detection of premalignant and malignant conditions of the uterine cervix. It is not a diagnostic procedure and should not be used as the sole means of detecting cervical cancer. Both false-positive and false-negative reports do occur. PERFORMED BY: Comment [facility] Comment on above: Result Comment: Josue Carrero [employer] (ASCP) SPECIMEN ADEQUACY: Comment [facility] Comment on above: Result Comment: (NOT E) Satisfactory for evaluation. Endocervical and/or squamous metaplastic cells (endocervical component) are present. TEST METHODOLOGY: Comment Normal [facility] Comment on above: Result Comment: (NOT E) This liquid based ThinPrep(R) pap test was screened with the use of an image guided system. PERFORMED AT [facility] ECHOCARDIOGRAM TREADMILL STR ESS TESTOrdered By: Gerardo [...] were monitored. An Echocardiogram was performed by arcade game technician in four stages in quad fashion. At peak stress, four selected images were obtained and placed side by side with resting images for comparison. Stress Test Details Test: Exercise stress testing was performed using a Rodger protocol. HR Resting HR: 109 bpm Max Heart Rate (APMHR): 194.586633 bpm Max HR Achieved: 200 bpm Target HR (85% APMHR): 164.663990 bpm % of APMHR: 103.09 Recovery HR: [...] 13.70 METs Scale: Active Angina Score: None [facility] User, Interfaces - 02/18/2021 12:14 AM [...] were monitored. An Echocardiogram was performed by arcade game technician in four stages in quad fashion. At peak stress, four selected images were obtained and placed side by side with resting images for comparison. Stress Test Details Test: Exercise stress testing was performed using a Rodger protocol. HR Resting HR: 109 bpmMax Heart Rate (APMHR): 194.991129 bpm Max HR Achieved: 200 bpmTarget HR (85% APMHR): 164.986379 bpm % of APMHR: 103.09 Recovery HR: [...] 13.70 METs Scale: Active Angina Score: None [facility] ECGOrdered By: Gerardo Doan on 01-27-2021 [facility] B12 & FOLATEOrdered By: Yessy Doan on 01-17-2021 Cobalamin (Vitamin B12) [Mass/Vol] 383 pg/mL 239 - 931 PG/ML [facility] Folate [Mass/Vol] 19.7 ng/mL [facility] Comment on above: Testing performed at [place], [place] [address] [facility] CBC, EDIF, PLATELETOrdered B y: Gerardo Doan on 01-17-2021 ABSOLUTE BASOPHIL COUNT 0.1 10*3/uL 0.0 - 0.2 10*3/uL [facility] Comment on above: Testing performed at [place], [place] [address] Basophils/100 WBC (Bld) 0.4 % 0.0 - 2.0 % [facility] Differential cell count method Nom (Bld) AUTO DIFF % [facility] Eosinophils (Bld) [#/Vol] 0.10 10*3/uL 0.0 - 0.7 10*3/uL [facility] Eosinophils/100 WBC (Bld) 0.6 % 0.0 - 11.0 % [facility] Erythrocyte distribution width (RBC) [Ratio] 13.2 % 11.5 - 14.5 % [facility] Hematocrit (Bld) [Volume fraction] 39.3 % 36.0 - 48.0 % [facility] Hemoglobin (Bld) [Mass/Vol] 13.6 g/dL [facility] Interpretation and review of laboratory results Abnormal [facility] Lymphocytes (Bld) [#/Vol] 1.90 10*3/uL 1.2 - 3.4 10*3/uL [facility] Lymphocytes/100 WBC (Bld) 13.6 % Low 20.0 - 55.0 % [facility] MCH (RBC) [Entitic mass] 31.1 pg 26.0 - 35.0 PG [facility] MCHC (RBC) [Mass/Vol] 34.7 g/dL [facility] MCV (RBC) [Entitic vol] 89.6 fL [facility] Monocytes (Bld) [#/Vol] 0.5 10*3/uL 0.0 - 0.7 10*3/uL [facility] Monocytes/100 WBC (Bld) 3.5 % 0.0 - 10.0 % [facility] Neutrophils (Bld) [#/Vol] 11.3 10*3/uL High 1.4 - 6.5 10*3/uL [facility] Neutrophils/100 WBC (Bld) 81.9 % High 37.0 - 75.0 % [facility] Platelet mean volume (Bld) [Entitic vol] 7.6 fL [facility] Platelets (Bld) [#/Vol] 483 10*3/uL High 130.0 - 400.0 10*3/uL [facility] RBC (Bld) [#/Vol] 4.38 10*6/uL 4.0 - 5.4 10*6/uL [facility] WBC (Bld) [#/Vol] 13.8 10*3/uL High 3.6 - 11.0 10*3/uL [facility] COMPREHENSIVE METABOLIC PANE LOrdered By: Gerardo Doan on 01-17-2021 Albumin [Mass/Vol] 4.6 G/dl 3.5 - 5.0 G/dl [facility] Albumin/Globulin [Mass ratio] 1.4 {ratio} [facility] ALP [Catalytic activity/Vol] 57 U/L [facility] ALT [Catalytic activity/Vol] 18 U/L <35 IU/L [facility] AST [Catalytic activity/Vol] 21 U/L [facility] Bilirubin [Mass/Vol] 0.4 mg/dL [facility] Calcium [Mass/Vol] 10.3 mg/dL High [facility] Chloride [Moles/Vol] 106 mmol/L [facility] Comment on above: Please note: Triglyc eride levels of 600mg/dL or higher may positively bias chloride results by approximately 2.1 mmol CO2 [Moles/Vol] 21 mmol/L Low [facility] Creatinine [Mass/Vol] 0.50 mg/dL Low [facility] GFR COMMENT Average GFR for 20-2 9 years old = 116. [facility] Comment on above: Chronic Kidney disea se, GFR = <60. Kidney failure, GFR = <15. The GFR estimate is not adjusted for extreme body surface area or acute process, nor has it been validated for women or ethnic groups other than and . Testing performed at [place], [place] [address] GFR/1.73 sq M.predicted among blacks MDRD (S/P/Bld) [Vol rate/Area] mL/min/{1.73_m2} ml/min/1.73sq.m [facility] GFR/1.73 sq M.predicted among non-blacks MDRD (S/P/Bld) [Vol rate/Area] mL/min/{1.73_m2} ml/min/1.73sq.m [facility] Glucose post fast [Mass/Vol] 105 mg/dL High [facility] Comment on above: NORMAL <100 mg/dL PREDIABETES 101-126 mg/dL DIABETES 126 mg/dL or higher Interpretation and review of laboratory results Abnormal [facility] Potassium [Moles/Vol] 4.1 mmol/L [facility] Protein [Mass/Vol] 8.0 g/dL [facility] Sodium [Moles/Vol] 138 mmol/L [facility] Urea nitrogen [Mass/Vol] 8 mg/dL [facility] HEMOGLOBIN [id number] By: Sa edi Doan on 01-17-2021 Glucose [Mass/Vol] 100 mg/dL [facility] Comment on above: Testing performed at [place] [address] HbA1c (Bld) [Mass fraction] 5.1 % 0 - 6 % [facility] Comment on above: NORMAL <5.7% PREDIABETES 5.7-6.4% DIABETES 6.5% OR HIGHER [facility] IRON/IRON BINDING/TRANSFERRI NOrdered By: Gerardo Doan on 01-17-2021 Interpretation and review of laboratory results Abnormal [facility] Iron [Mass/Vol] 145 ug/dL [facility] Iron binding capacity [Mass/Vol] 505 High [facility] Iron saturation [Mass fraction] 29 % [facility] Comment on above: Testing performed at [address] TSHOrdered By: Gerardo Doan on 01-17-2021 TSH Qn 1.420 m[IU]/L [facility] Comment on above: Testing performed at [address] PROGRESSon 04-25-2018 [facility] NOTES Normal [facility] PROGRESSon 02-19-2018 [facility] NOTES Normal [facility] PROGRESSon 02-13-2018 [facility] NOTES Normal [facility] PAP, ThinPrep, rfx HPV ASCUS on 02-15-2017 Comment Normal [facility] Comment on above: Result Comment: IGLB P CPT CODE AUTOMATION: (NOTE)IGLBP CPT CODE AUTOMATION: This liquid based ThinPrep(R) pap test was screenedwith theIGLBP CPT CODE AUTOMATION: use of an image guided system. Performed By: #### L PRAS ####[facility] [id number] [place] [address] lab Director: Dr. Lauro Merino, DO Diagnosis Normal [facility] Comment on above: Result Comment: Comm ent(NOTE)NEGATIVE FOR INTRAEPITHELIAL LESION AND MALIGNANCY.CELLULAR CHANGES ASSOCIATED WITH INFLAMMATION ARE PRESENT.THIS SPECIMEN WAS RESCREENED PART OF OUR GUIDE WINDER PROGRAM. Performed By: #### L PRAS ####[facility] [id number] [place] [address] Lab Director: Dr. Lauro Merino DO IGLBP CPT COde Comment [facility] Comment on above: Performed By: #### L PRAS ####[facility] [address] [place] [address] Lab Director: Dr. Lauro Merino DO Note [facility] Comment on above: Result Comment: Comm ent(NOTE)The Pap smear is a screening test designed to aid in the detection ofpremalignant and malignant conditions of the uterine cervix. It isnot a diagnostic procedure and should not be used as the sole meansof detecting cervical cancer. Both false-positive and false-negativereports do occur. Performed By: #### L PRAS ####[facility] [address] [place] [id number] lab Director: Dr. Lauro Merino DO Performed By Comment Kareen Lucero, [employer] [facility] Comment on above: Performed By: #### L PRAS ####[facility] [address] [place] [address] lab Director: Dr. Lauro Merino DO Performed By [facility] Comment on above: Performed By: #### L PRAS ####[facility] [address] [place] [address] Lab Director: Dr. Lauro Merino DO QC Reviewed By Comment Dedra Yip , Supervisory [employer] (ASCP) [facility] Comment on above: Performed By: #### L PRAS ####[facility] [address] [place] [address] lab Director: Dr. Lauro Merino DO Spec Adequacy [facility] Comment on above: Result Comment: Comm ent(NOTE)Satisfactory for evaluation. Endocervical and/or squamous metaplasticcells (endocervical component) are present. Performed By: #### L PRAS ####[facility] [id number] [place] [address] lab Director: Dr. Lauro Merino DO Specimen # [id number] [facility] Comment on above: Performed By: #### L PRAS ####[facility] [address] [place] [address] lab Director: Dr. Lauro Merino DO . [facility] Comment on above: Result Comment: Comm ent(NOTE)The HPV DNA reflex criteria were not met with this specimen resulttherefore, no HPV testing was performed.No. of containers..01 CYTYC Thin Prep VialPERFORMED AT [facility] Performed By: #### L PRAS ####[facility] [id number] [place] [address] lab Director: Dr. Lauro Merino DO . . [facility] Comment on above: Performed By: #### L PRAS ####[facility] [address] [place] [address] lab Director: Dr. Lauro Merino DO Vital Signs Date Time Vital Sign Value Performing Clinician Benny jacob 03-27-2023 09:16-0400 Body height 157.5 cm Veronica Hay STRAIGHT RULING MACHINE OPERATOR-VARNISH MAKER Work Phone: [facility] 03-27-2023 09:16-0400 Body mass index (BMI) [Ratio] 29.26 kg/m2 Ami Hay STRAIGHT RULING MACHINE OPERATOR-[employer]ARNISH [employer]KER Work Phone: [facility] 03-27-2023 09:16-0400 Body weight 72.58 kg Ami Hay STRAIGHT RULING MACHINE OPERATOR-[employer]ARNISH [employer]KER Work Phone: [facility] 03-27-2023 09:16-0400 Diastolic blood pressure 64 mm[Hg] Ami Hay STRAIGHT RULING MACHINE OPERATOR-[employer]ARNISH [employer]KER Work Phone: [facility] 03-27-2023 09:16-0400 Systolic blood pressure 110 mm[Hg] Ami Hay STRAIGHT RULING MACHINE OPERATOR-[employer]ARNISH [employer]KER Work Phone: [facility] 03-19-2022 10:05-0400 Body height 157.5 cm Lola Solaresam STRAIGHT RULING MACHINE OPERATOR-[employer]ARNISH MAKER Work Phone: [facility] 03-19-2022 10:05-0400 Body mass index (BMI) [Ratio] 30.91 kg/m2 Lola Kofi STRAIGHT RULING MACHINE OPERATOR-[employer]ARNISH [employer]KER Work Phone: [facility] 03-19-2022 10:05-0400 Body weight 76.66 kg Lola Kofi STRAIGHT RULING MACHINE OPERATOR-[employer]ARNISH [employer]ER Work Phone: [facility] 03-19-2022 10:05-0400 Diastolic blood pressure 66 mm[Hg] Lola Kofi STRAIGHT RULING MACHINE OPERATOR-[employer] Work Phone: [facility] 03-19-2022 10:05-0400 Systolic blood pressure 122 mm[Hg] Lola Kofi STRAIGHT RULING MACHINE OPERATOR-[employer]ARN[employer]ER Work Phone: [facility] 03-17-2021 13:57-0400 Body height 157.5 cm Lola Kofi STRAIGHT RULING MACHINE OPERATOR-[employer]ARNISH [employer]KER Work Phone: [facility] 03-17-2021 13:57-0400 Body mass index (BMI) [Ratio] 28.9 kg/m2 Lola Kofi STRAIGHT RULING MACHINE OPERATOR-[employer]ARNISH [employer]KER Work Phone: [facility] 03-17-2021 13:57-0400 Body weight 71.67 kg Lola Kofi STRAIGHT RULING MACHINE OPERATOR-[employer]ER Work Phone: [facility] 03-17-2021 13:57-0400 Diastolic blood pressure 76 mm[Hg] Lola Kofi STRAIGHT RULING MACHINE OPERATOR[employer]ER Work Phone: [facility] 03-17-2021 13:57-0400 Systolic blood pressure 122 mm[Hg] Lola Kofi STRAIGHT RULING MACHINE OPERATOR-[employer]ISH [employer]ER Work Phone: [facility] 02-01-2021 07:05-0400 Body height 157.5 cm Gerardo Doan MD Work Phone: [facility] 02-01-2021 07:05-0400 Body mass index (BMI) [Ratio] 29.07 kg/m2 Gerardo Doan MD Work Phone: [facility] 02-01-2021 07:05-0400 Body temperature 98.4 [degF] Gerardo Doan MD Work Phone: [facility] 02-01-2021 07:05-0400 Body weight 72.12 kg Gerardo Doan MD Work Phone: [facility] 02-01-2021 07:05-0400 Diastolic blood pressure 84 mm[Hg] Gerardo Doan MD Work Phone: [facility] 02-01-2021 07:05-0400 Heart rate 127 /min Gerardo Doan MD Work Phone: [facility] 02-01-2021 07:05-0400 Respiratory rate 18 /min Gerardo Doan MD Work Phone: [facility] 02-01-2021 07:05-0400 SaO2% (BldA) [Mass fraction] 99 % Gerardo Doan MD Work Phone: [facility] 02-01-2021 07:05-0400 Systolic blood pressure 130 mm[Hg] Gerardo Doan MD Work Phone: [facility] 01-17-2021 09:37-0400 Diastolic blood pressure 80 mm[Hg] Gerardo Doan MD Work Phone: [facility] 01-17-2021 09:37-0400 Heart rate 111 /min Gerardo Doan MD Work Phone: [facility] 01-17-2021 09:37-0400 Systolic blood pressure 130 mm[Hg] Gerardo Doan MD Work Phone: [facility] 01-17-2021 08:17-0400 Body height 157.5 cm Gerardo Doan MD Work Phone: [facility] 01-17-2021 08:17-0400 Body mass index (BMI) [Ratio] 28.74 kg/m2 Gerardo Doan MD Work Phone: [facility] 01-17-2021 08:17-0400 Body temperature 98.6 [degF] Gerardo Doan MD Work Phone: [facility] 01-17-2021 08:17-0400 Body weight 71.31 kg Gerardo Doan MD Work Phone: [facility] 01-17-2021 08:17-0400 Respiratory rate 18 /min Gerardo Doan MD Work Phone: [facility] 01-17-2021 08:17-0400 SaO2% (BldA) [Mass fraction] 99 % Gerardo Doan MD Work Phone: [facility] 03-15-2020 09:24-0400 BMI (Body Mass Index) 29.78 kg/m2 [facility] 03-15-2020 09:24-0400 Body Temperature 97.81 [degF] [facility] 03-15-2020 09:24-0400 Body weight 73.85 kg [facility] 03-15-2020 09:24-0400 BP Diastolic 62 mm[Hg] [facility] 03-15-2020 09:24-0400 BP Systolic 128 mm[Hg] [facility] 03-15-2020 09:24-0400 Height 157.5 cm [facility] 03-11-2019 14:45-0400 BMI (Body Mass Index) 28.9 kg/m2 [facility] 03-11-2019 14:45-0400 Body weight 71.67 kg [facility] 03-11-2019 14:45-0400 BP Diastolic 72 mm[Hg] [facility] 03-11-2019 14:45-0400 BP Systolic 120 mm[Hg] [facility] 03-11-2019 14:45-0400 Height 157.5 cm [facility] Encounters Encounter Date Encounter Type Care Provider Facility Start: 04-09-2024 End: 04-09-2024 ambulatory EVA RODGER Not Available Start: 03-12-2024 End: 03-12-2024 ambulatory JOEL ESTES Not Available Start: 02-13-2024 End: 02-13-2024 ambulatory EVA RODGER Not Available Start: 02-06-2024 ambulatory EVA RODGER [facility] Start: 01-23-2024 End: 01-23-2024 ambulatory EVA RODGER Not Available Start: 03-27-2023 End: 03-27-2023 Patient encounter status Veronica Stokes Jorge STRAIGHT RULING MACHINE OPERATOR-VARNISH MAKER Work Phone: [facility] Work Phone: Start: 03-27-2023 End: 03-27-2023 Periodic preventive med est patient 18-39 yrs Veronica Stokes Jorge STRAIGHT RULING MACHINE OPERATOR-VARNISH MAKER Work Phone: [facility] WET PROCESS ASSISTANT HEAD MILLER Comment on above: Encounter for gyneco logical examination without abnormal finding (Primary Dx); Screening for cervical cancer; Encounter for surveillance of contraceptive pills Start: 03-27-2023 ambulatory [facility] Start: 03-19-2022 End: 03-19-2022 Patient encounter status Lola Kirby STRAIGHT RULING MACHINE OPERATOR-VARNISH MAKER Work Phone: [facility] WET PROCESS ASSISTANT HEAD MILLER Start: 03-19-2022 End: 03-19-2022 Periodic preventive med est patient 18-39 yrs Lola Kirby STRAIGHT RULING MACHINE OPERATOR-VARNISH MAKER Work Phone: [facility] WET PROCESS ASSISTANT HEAD MILLER Comment on above: Encounter for gyneco logical examination without abnormal finding (Primary Dx); Initiation of oral contraception Start: 03-17-2021 End: 03-17-2021 Patient encounter status Lola Kirby STRAIGHT RULING MACHINE OPERATOR-VARNISH MAKER Work Phone: [facility] WET PROCESS ASSISTANT HEAD MILLER Start: 03-17-2021 End: 03-17-2021 Periodic preventive med est patient 18-39 yrs Lola Kirby STRAIGHT RULING MACHINE OPERATOR-VARNISH MAKER Work Phone: [facility] WET PROCESS ASSISTANT HEAD MILLER Comment on above: Encounter for gyneco logical examination without abnormal finding (Primary Dx); Encounter for surveillance of contraceptive pills Start: 02-17-2021 End: 02-17-2021 Subsequent hospital visit by physician Gerardo Doan MD Work Phone: [employer] [facility] Comment on above: Arrived Start: 02-01-2021 End: 02-01-2021 Office outpatient visit 25 minutes Gerardo Doan MD Work Phone: [facility] Comment on above: Murmur (Primary Dx); History of COVID-19; Abnormal EKG; Generalized anxiety disorder; Fluid level behind tympanic membrane of both ears; Leukocytosis, unspecified type Start: 01-27-2021 End: 01-27-2021 Subsequent hospital visit by physician Gerardo Doan MD Work Phone: [employer] [facility] Comment on above: Arrived Start: 01-17-2021 End: 01-17-2021 Office outpatient visit 25 minutes Gerardo Doan MD Work Phone: [facility] Comment on above: Lightheadedness (Jaycee mandi Dx); Screening for condition; BMI 28.0-28.9,adult; Irregular periods/menstrual cycles; Menorrhagia with regular cycle; Fluid level behind tympanic membrane of both ears; Iron deficiency anemia due to chronic blood loss Start: 03-15-2020 End: 03-15-2020 Periodic preventive med est patient 18-39 yrs Lola Kirby Work Phone: [employer] WET PROCESS ASSISTANT HEAD MILLER Comment on above: Encounter for gyneco logical examination without abnormal finding (Primary Dx); Encounter for surveillance of contraceptive pills Start: 03-11-2019 End: 03-11-2019 Periodic preventive med est patient 18-39 yrs Lola Kirby Work Phone: [employer] WET PROCESS ASSISTANT HEAD MILLER Comment on above: Encounter for gyneco logical examination without abnormal finding (Primary Dx); Encounter for surveillance of contraceptive pills Start: 11-19-2018 End: 11-19-2018 Patient encounter procedure Other Other [facility] Start: 04-25-2018 Patient encounter EMILIANO Seay [facility] Start: 02-19-2018 Patient encounter EMILIANO Seay [facility] Start: 02-13-2018 Patient encounter EMILIANO Seay [facility] Start: 02-15-2017 End: 02-16-2017 Ambulatory LOLA KIRBY [place] [facility] Procedures Date Procedure Procedure Detail Performing Clinician Start: 03-17-2021 PAP IG, RFX HPV ASCU Sh iggy Kirby STRAIGHT RULING MACHINE OPERATOR-VARNISH MAKER Work Phone: Start: 02-17-2021 Echo tthrc r-t [...] Detail Author Start: 04-19-2027 Tetanus vaccination TETANUS [facility] Start: 04-01-2024 End: 04-01-2024 Patient encounter procedure 04/01/2024 8:50 AM EDT Office Visit [facility] WET PROCESS ASSISTANT HEAD MILLER [address] [place] [phone] Veronica Lerma STRAIGHT RULING MACHINE OPERATOR-VARNISH MAKER [address] [place] [phone] [facility] WET PROCESS ASSISTANT HEAD MILLER Start: 03-27-2024 Screening for malign ant neoplasm of cervix CERVICAL CANCER SCREENING DISCUSSION [facility] Start: 03-29-2023 Influenza vaccination INFLUENZA VACC INE (#1) [facility] Start: 03-21-2023 End: 03-21-2023 Patient encounter procedure 03/21/2023 Office Visit WET PROCESS ASSISTANT HEAD MILLER Lola Kirby STRAIGHT RULING MACHINE OPERATOR-VARNISH MAKER [id number] [place] [address] [facility] WET PROCESS ASSISTANT HEAD MILLER Start: 03-19-2023 Screening for malign ant neoplasm of cervix CERVICAL CANCER SCREENING DISCUSSION [facility] Start: 03-29-2022 Influenza vaccination INFLUENZA VACC INE (#1) [facility] Start: 03-23-2022 End: 03-23-2022 Patient encounter procedure 03/23/2022 Office Visit WET PROCESS ASSISTANT HEAD MILLER Lola Kirby, STRAIGHT RULING MACHINE OPERATOR-VARNISH MAKER [id number] [place], [id number] WET PROCESS ASSISTANT HEAD MILLER Start: 03-17-2022 Screening for malign ant neoplasm of cervix CERVICAL CANCER SCREENING DISCUSSION [facility] Start: 03-29-2021 Influenza vaccination [facility] Start: 03-17-2021 End: 03-17-2021 Patient encounter procedure 03/17/2021 Office Visit WET PROCESS ASSISTANT HEAD MILLER Lola Kirby, STRAIGHT RULING MACHINE OPERATOR-VARNISH MAKER [id number] [place] [address] [facility] WET PROCESS ASSISTANT HEAD MILLER Start: 03-17-2021 End: 03-17-2021 Office Visit 03/17/2021 Office Visit WET PROCESS ASSISTANT HEAD MILLER Lola Kirby STRAIGHT RULING MACHINE OPERATOR-VARNISH MAKER [id number] [place] [address] [facility] WET PROCESS ASSISTANT HEAD MILLER Start: 03-15-2021 Screening for malign ant neoplasm of cervix CERVICAL CANCER SCREENING DISCUSSION [facility] Start: 02-28-2021 End: 02-28-2021 Patient encounter procedure 02/28/2021 Office Visit Family Medicine Gerardo Doan MD [address] [place] [address] [facility] Start: 02-01-2021 End: 02-01-2022 Complete blood count with white cell differential, automated CBC, EDIF, PLATELET Lab Routine Leukocytosis, unspecified type Expected: 02/01/2021, Expires: 02/01/2022 [facility] Comment on above: Expected: 02/01/2021 , Expires: 02/01/2022 Start: 02-01-2021 End: 02-01-2022 Exercise stress echocardiography ECHOCARDIOGRAM TREADMILL STRESS TEST Stress Echocardiography Routine Murmur History of COVID-19 Abnormal EKG Expected: 02/01/2021, Expires: 02/01/2022 [facility] Comment on above: Expected: 02/01/2021 , Expires: 02/01/2022 Start: 02-01-2021 End: 02-01-2021 Patient encounter procedure 02/01/2021 Office Visit Family Medicine Gerardo Doan MD [address] [place] [address] [facility] Start: 01-17-2021 End: 01-17-2022 Standard ECG ECG ECG Routine Lightheadedness Expected: 01/17/2021, Expires: 01/17/2022 [facility] Comment on above: Expected: 01/17/2021 , Expires: 01/17/2022 Start: 06-15-2020 End: 03-15-2021 [facility] CYTOLOGY-BIN FILLER, LIQUID BASED [facility] CYTOLOGY-BIN FILLER, LIQUID BASED Cytology Routine Encounter for gynecological examination without abnormal finding Expected: 06/15/2020, Expires: 03/15/2021 [facility] Comment on above: Expected: 06/15/2020 , Expires: 03/15/2021 Start: 03-29-2020 Influenza vaccination INFLUENZA VACC INE (#1) [facility] Start: 03-11-2020 Screening for malign ant neoplasm of cervix CERVICAL CANCER SCREENING DISCUSSION [facility] Start: 03-29-2019 Influenza vaccination [facility] Start: 03-11-2019 End: 03-11-2020 [facility] CYTOLOGY-BIN FILLER, LIQUID BASED [facility] CYTOLOGY-BIN FILLER, LIQUID BASED Cytology Routine Encounter for gynecological examination without abnormal finding Expected: 03/11/2019, Expires: 03/11/2020 [facility] Comment on above: Expected: 03/11/2019 , Expires: 03/11/2020 Start: 02-20-2019 End: 02-20-2019 Office Visit 02/20/2019 Office Visit WET PROCESS ASSISTANT HEAD MILLER Lola Kirby, STRAIGHT RULING MACHINE OPERATOR-VARNISH MAKER [id number] [place] [address] [phone] [facility] WET PROCESS ASSISTANT HEAD MILLER Start: 02-18-2019 Screening for malign ant neoplasm of cervix PAP SMEAR DISCUSSION [facility] Start: 02-15-2018 Screening for malign ant neoplasm of cervix PAP SMEAR DISCUSSION [facility] Start: 01-26-2016 Tetanus vaccination TETANUS [facility] Start: 2013 Third diphtheria, te tanus and acellular pertussis (DTaP) vaccination TDAP (ADULT) [facility] Start: 2010 Screening for Chlamy andrey trachomatis CHLAMYDIA SCREEN [facility] Start: 2009 HIV screening HIV SCREENING DISCUSSI ON [facility] Start: 11-09-2007 HIV screening HIV SCREENING DISCUSSI ON [facility] Start: 2006 COVID-19 VACCINE (1) COVID-19 VACCIN E (1) [facility] Start: 05-10-1995 COVID-19 VACCINE (#1) COVID-19 VACCI NE (#1) [facility] Start: 1994 GONORRHEA SCREEN GONORRHEA SCREEN [facility] Start: 1994 Hepatitis C antibody , confirmatory test HEPATITIS C VIRUS SCREENING [facility] Start: 1994 Hepatitis C screening HEPATITI S C VIRUS SCREENING [facility] PAP IG, RFX HPV ASCU PAP IG, RFX HPV ASCU LAB SEND OUTS Routine 03/15/2020 9:50 AM [facility] PAP IG, RFX HPV ASCU PAP IG, RFX HPV ASCU Cytology Routine 03/17/2021 1:55 PM [facility] Work Phone: PAP IG, RFX HPV ASCU PAP IG, RFX HPV ASCU Cytology Routine 03/19/2022 10:06 AM [facility] PAP IG, RFX HPV ASCU PAP IG, RFX HPV ASCU Cytology Routine 03/27/2023 9:25 AM [facility] Immunizations Immunization Date Immunization Notes Care Provider Fa cility 05-20-2019 influenza virus vacc ine, unspecified formulation Lola Kirby [facility] 05-09-2016 influenza virus vacc ine, unspecified formulation Other Other [facility] 04-24-2012 meningococcal polysaccharide (groups A, C, Y and W-135) diphtheria toxoid conjugate vaccine (MCV4P) Other [facility] 09-02-2007 human papilloma viru s vaccine, bivalent Other Other [facility] 05-02-2007 human papilloma viru s vaccine, bivalent Other Other [facility] 02-11-2007 human papilloma viru s vaccine, bivalent Other Other [facility] 02-11-2007 meningococcal polysaccharide (groups A, C, Y and W-135) diphtheria toxoid conjugate vaccine (MCV4P) Other Other [facility] 02-11-2007 varicella virus vaccine Other [facility] 01-25-2006 tetanus toxoid, redu cate diphtheria toxoid, and acellular pertussis vaccine, adsorbed Other Other [facility] 03-03-2001 varicella virus vaccine Other [facility] 11-14-1999 measles, mumps and r ubella virus vaccine Other [facility] 06-15-1996 diphtheria, tetanus toxoids and acellular pertussis vaccine Other [facility] 03-10-1996 haemophilus influenz ae type b vaccine, conjugate unspecified formulation Other Other [facility] 03-10-1996 measles, mumps and r ubella virus vaccine Other [facility] 08-13-1995 hepatitis B vaccine, pediatric or pediatric/adolescent dosage Other Other [facility] 04-11-1995 poliovirus vaccine, inactivated Other Other [facility] 02-01-1995 hepatitis B vaccine, pediatric or pediatric/adolescent dosage Other [facility] 1994 hepatitis B vaccine, pediatric or pediatric/adolescent dosage Other [facility] Payers Date Payer Category Payer Unknown [id number] 2021 Unknown [id number] 2016 Unknown 2014 Unknown [id number] 1994 Unknown [id number] 1994 Unknown [id number] [id number] 1994 Unknown [id number] 1994 Unknown [id number] 1994 Unknown [id number] 1994 Unknown [id number] Social History Date Type Detail Facility Start: 03-15-2020 End: 03-27-2023 Tobacco smoking status NHIS Never smoker [facility] Start: 03-15-2020 End: 03-27-2023 Tobacco use and exposure Never used [facility] stem Start: 03-15-2020 End: 03-27-2023 Alcohol intake Current drinker of alcohol (finding) [facility] Start: 02-03-2020 End: 03-15-2020 History SDOH Alcohol Frequency 2 [facility] Start: 02-18-2018 Alcohol Comment consumes rarely [facility] Start: 1994 Sex Assigned At Not on file [facility] Start: 03-11-2019 End: 03-27-2023 Alcohol intake Yes [facility] Exposure to SARS-CoV -2 (event) Not sure [facility] Start: 03-15-2020 End: 03-27-2023 History of Social function [facility] How often to you hav e a drink containing alcohol? Monthly or less [facility] Average Number of Drinks Not on file [facility] Gender identity Identifies as fe male gender (finding) [facility] Goals Date Patient Goal Desired Activity /State [...] Screening for cervical cancer Pap collected - [facility] CYTOLOGY-BIN FILLER, LIQUID BASED 3. Encounter for surveillance of contraceptive pills Doing well tri-cycling. No contraindicating dx. I will send in new script with refills to pharmacy of patient's choice. Patient advised to contact the office with any concerns. Patient voiced understanding of all instructions. Return in about 1 year (around 03/27/2024) for Annual with Veronica lew. Thank you. . documented in this encounter [facility] 03-19-2022 History of Presen t illness Narrative [...] Pap w/ HPV rfx ASCUS ordered. - [facility] CYTOLOGY-BIN FILLER, LIQUID BASED 2. Initiation of oral contraception - norgestimate-ethinyl estradiol 0.25-35 MG-MCG tablet; Take 1 tablet by mouth daily. Dispense: 84 tablet; Refill: 3 Return in about 1 year (around 03/19/2023) for Annual wellness. documented in this encounter [facility] 03-17-2021 History of Presen t illness Narrative [...] Social Gatherings with Friends and Family: Attends Scientologist Services: Active Member of Clubs or Organizations: [...] Pap w/ HPV rfx ASCUS ordered. - [facility] CYTOLOGY-BIN FILLER, LIQUID BASED 2. Encounter for surveillance of contraceptive pills - levonorgestrel-ethinyl estradiol (Quasense) 0.15-0.03 MG tablet; Take one tablet by mouth daily. Dispense: 91 tablet; Refill: 3 Return in about 1 year (around 03/17/2022) for Annual wellness. documented in this encounter [facility] 02-01-2021 History of Presen t illness Narrative [...] another episode of fainting while shopping at [employer]. She has a hx of iron deficiency, she has not been taking iron regularly, so she restarted this for one week. She notes that she was feeling pretty good again. She felt that she was tired all of the time, had another episode while at [employer] Saturday01/15/21. She has a high resting heart [...] Social Gatherings with Friends and Family: Attends Scientologist Services: Active Member of Clubs or Organizations: [...] Assessment: Physical Exam documented in this encounter [facility] 01-17-2021 History of Presen t illness Narrative [...] another episode of fainting while shopping at [employer]. She has a hx of iron deficiency, she has not been taking iron regularly, so she restarted this for one week. She notes that she was feeling pretty good again. She felt that she was tired all of the time, had another episode while at [employer] Saturday01/15/21. She has a high resting heart [...] Social Gatherings with Friends and Family: Attends Scientologist Services: Active Member of Clubs or Organizations: [...] Assessment: Physical Exam documented in this encounter [facility] 01-17-2021 Miscellaneous Notes Addended by: MAKAYLA KILGORE on: 01/17/2021 03:15 PM Modules accepted: Orders documented in this encounter [facility] Evaluation note Diagnosis Lightheadedness- Primary Dizziness and [...] blood loss (chronic) documented in this encounter [facility]* Diagnosis Lightheadedness Dizziness and giddiness documented in this encounter [facility]* Diagnosis Murmur- Primary Undiagnosed cardiac murmurs History of COVID-19 Abnormal EKG Nonspecific abnormal electrocardiogram (ECG) (EKG) Generalized anxiety disorder Fluid level behind tympanic membrane of both ears Leukocytosis, unspecified type [facility] Diagnosis Murmur Undiagnosed cardiac murmurs History of COVID-19 Abnormal EKG Nonspecific abnormal electrocardiogram (ECG) (EKG) [facility] Diagnosis Encounter for gynecological examination without abnormal finding- Primary Routine gynecological examination Encounter for surveillance of contraceptive pills Surveillance of previously prescribed contraceptive pill [facility] Diagnosis Encounter for gynecological examination without abnormal finding- Primary Routine gynecological examination Initiation of oral contraception [facility] Diagnosis Encounter for gynecological examination without abnormal finding- Primary Routine gynecological examination Screening for cervical cancer Screening for malignant neoplasm of the cervix Encounter for surveillance of contraceptive pills Surveillance of previously prescribed contraceptive pill documented in this encounter [facility] Summary Purpose Family History No Family History Records FoundNo Family History Records FoundNo Family History Records FoundNo Family History Records Found Advance Directives No Advanced Directives Records FoundNo Advanced Directives Records FoundNo Advanced Directives Records FoundNo Advanced Directives Records Found History of Present Illness * Lola Kirby, STRAIGHT RULING MACHINE OPERATOR-VARNISH MAKER - 03/15/2020 9:30 AM EDT History of [...] file Gets together: Not on file Attends jew service: Not on file Active member of [...] w/ HPV rfx ASCUS ordered - [facility] CYTOLOGY-BIN FILLER, LIQUID BASED; Future 2. Encounter for surveillance [...] file Gets together: Not on file Attends jew service: Not on file Active member of [...] w/ HPV rfx ASCUS ordered - [facility] CYTOLOGY-BIN FILLER, LIQUID BASED; Future 2. Encounter for surveillance [...] Procedures ECG Gerardo Doan MD [address] [place] [address] Status Reason Specialty Diagnoses / Procedures Referred By Contact Referred To Contact Auth Not Needed Cardiovascular Medicine Diagnoses Murmur History of COVID-19 Abnormal EKG Procedures ECHOCARDIOGRAM TREADMILL STRESS TEST AR ECHO TTHRC R-T 2D W/WO M-MODE REST&STRS CONT ECG AR DOPPLER ECHO HEART,LIMITED,F/ U AR DOPPLER COLOR FLOW VELOCITY MAP Gerardo Doan MD [address] [place] [address] [facility] Echocardiograp [facility] [address] [place] [address] Status Reason Specialty Diagnoses / Procedures Referred By Contact Referred To Contact Closed Cardiovascular Medicine Diagnoses Murmur History of COVID-19 Abnormal EKG Procedures ECHOCARDIOGRAM TREADMILL STRESS TEST AR ECHO TTHRC R-T 2D W/WO M-MODE REST&STRS CONT ECG AR DOPPLER ECHO HEART,LIMITED,F/U AR DOPPLER COLOR FLOW VELOCITY MAP Gerardo Doan MD [address] [place] [address] [facility] Echocardiograph y [address] [place] [address] Additional Source Comments INFORMATION SOURCE (unrecogn ized section and content) DATE CREATED AUTHOR 01/22/2018 [facility] DATE CREATED AUTHOR AUTHOR'S ORGANIZ ATION 05/27/2018 [facility] DATE CREATED AUTHOR AUTHOR'S ORGANIZ ATION 02/13/2024 [facility] DATE CREATED AUTHOR AUTHOR'S ORGANIZ ATION 04/11/2024 [facility] EPIC Reason for Visit (unrecogniz ed section and content) Reason Comments Annual Exam Pap 03/11/19 wnl Reason Comments Annual Exam Pap 02/18/18 wnl Want s to discuss ocp Reason Comments Rapid Heart Rate Status Reason Specialty Diagnoses / Procedures Referred By Contact Referred To Contact New Request Diagnoses Lightheadedness Procedures ECG Gerardo Doan MD [address] [place] [address] Reason Comments Dizziness 2 week f/u Status Reason Specialty Diagnoses / Procedures Referred By Contact Referred To Contact Closed Cardiovascular Medicine Diagnoses Murmur History of COVID-19 Abnormal EKG Procedures ECHOCARDIOGRAM TREADMILL STRESS TEST AR ECHO TTHRC R-T 2D W/WO M-MODE REST&STRS CONT ECG AR DOPPLER ECHO HEART,LIMITED,F/U AR DOPPLER COLOR FLOW VELOCITY MAP Gerardo Doan MD [address] [place] [address] [facility] Echocardiograph y [address] [place] [address] Reason Comments Annual Exam Pap 03/15/20 NILM [...] Care Teams (unrecognized sec tion and content) Specialty Sales Representative Relationship Specialty Start Date End Date Gerardo Doan MD PCP - General Family Medicine 12/21/16 Specialty Sales Representative Relationship Specialty Start Date End Date Gerardo Doan MD PCP - General Family Medicine 12/21/16 Specialty Sales Representative Relationship Specialty Start Date End Date Gerardo [...] BE BASED ON THE PRIMARY CLINICAL RECORDS. [facility] provides no warranty or guarantee of the accuracy or completeness of information in this document.
== END 2024-05-07 09:58 | disposition home or self-care (01) ==
LOC: NOMS 09:57
PROVIDERS: Visit Provider Obstetrics & Gynecology
DX: Z36.2 Encounter for other antenatal screening follow-up (principal); Z3A.22 22 weeks gestation of pregnancy
CPT/HCPCS: 76816

== ENCOUNTER 2024-07-16 09:45 | Outpatient (OUT) | payer OTHER, SELFPAY ==
--- NOTE | 2024-07-16 09:46 | US_ITS ---
[address] [address] Patient Name: NIALL HAILE MRN: [id number] date: 1995 Sex: F Assigned Patient Location: [facility] Current Patient Location: [facility] Accession/Order Number: [id number] Exam Date: 07/16/2024 09:47 Report Date: 07/16/2024 10:55 At the request of: EVA SOARES Procedure: US OB growth EXAMINATION: US OB growth HISTORY: GESTATIONAL DIABETES COMPARISON: No relevant comparison available. FINDINGS: Heart Rate: 133 bpm Amniotic Fluid Volume: 19.0 cm. The largest fluid pocket 6.5 cm Number: 1 Position: Cephalic presentation, longitudinal lie BIOMETRY: BPD: 8.65 cm; 34 weeks 6 days; 92 % HC: 32.15 cm; 36 weeks 2 days; 92.10 % AC: 31.97 cm; 35 weeks 6 days; 97 % FL: 6.18 cm; 32 weeks 0 days; 18.50 % EFW: 2664.37 g; 92.70 % 5 lbs. 9 oz. FL/AC: 19.33 FL/BPD: 71.45 HC/AC: 1.01 GESTATIONAL AGE: Age by EDC: 32 weeks 6 days URSULA by EDC: 2024-09-04 Age by US: 34 weeks 5 days URSULA by US: 2024-08-22 US/US OB growth IMPRESSION: Interval growth. Estimated weight 93rd percentile Electronically authenticated by: CHINEDU FRIAS Date: 07/16/2024 10:55
--- OUTSIDE RECORDS SUMMARY | 2024-07-16 09:57 | XMS_ITS | CCD ---
Author Organization [facility] Care Team Providers Care Rough Rounder Name Role Phone LOLA KIRBY Unavailable Unavailable [...] Unavailable Unavailable Gerardo Doan Primary Care Provider [phone] Colton Doanah Primary Care Provider Jessenia Gerardo Primary Care Provider Jessenia MIRANDA Cumby Primary Care Provider [phone] Jessenia MIRANDA Cumby Primary Care Provider [phone] Unavailable Primary Care Provider Unavailabl e CELSO, EVA Referring Unavailable CELSO, EVA Attending Unavailable MEERA, JEANNA Referring Unavailable CELSO, EVA Attending Unavailable COLTON DOANAH Primary Care Unavailable CELSO, EVA Referring Unavailable CELSO, EVA Attending Unavailable MEERA, JEANNA Attending Unavailable CELSO, EVA Attending Unavailable CELSO, EVA Attending Unavailable MEERA, JEANNA Attending Unavailable CELSO, EVA Attending Unavailable MEERA, JEANNA Attending Unavailable Medications Current Medications Medication Drug Class(es) Dates Sig (Normalized) Sig (Original) bisacodyl 10 mg rectal suppository (17 sources) Stimulant Laxative Start: 02-13-2024 bisacodyl (Dulcolax) 10 MG suppository Indications: Other constipation Insert 1 suppository (10 mg) into the rectum 1 (one) time if needed for constipation for up to 4 doses 4 suppository 02/13/2024 Active Blood Glucose Monitoring Suppl (D-Care Glucometer) w/Device kit (5 sources) Start: 06-18-2024 End: 06-18-2025 Blood Glucose Monitoring Suppl (D-Care Glucometer) w/Device kit Indications: Gestational diabetes mellitus (GDM), antepartum, gestational diabetes method of control unspecified , Elevated glucose tolerance test 1 kit Daily Use four times daily to check FSBS. In the morning prior to breakfast & 1 hour after each meal for a total of 4times daily. 1 kit 06/18/2024 06/18/2025 Active ethinyl estradiol 0.035 mg / norgestimate 0.25 mg oral tablet (3 sources) Progestin, Estrogen Start: 07-13-2022 End: 03-27-2023 take 1 tablet by mouth once daily norgestimate-ethiny l estradiol 0.25-35 MG-MCG tablet Take 1 tablet [...] mouth 3 times daily. 0 01/17/2021 Active isopropyl alcohol 0.7 ml/ml medicated pad (5 sources) Start: 06-18-2024 Alcohol Swabs (Alcohol Prep Pad) 70 % pads Indications: Gestational diabetes mellitus (GDM), antepartum, gestational diabetes method of control unspecified , Elevated glucose tolerance test Apply 1 Pad topically Daily Use four times daily to check FSBS. 150 each 3 06/18/2024 Active polysaccharide iron complex 391 mg oral capsule (8 sources) Start: 06-04-2024 End: 07-04-2024 take 1 capsule by mouth once daily iron polysaccharides (ProFe) 391.3 (180 Fe) MG capsule Indications: Antepartum anemia Take 1 capsule (391.3 mg) by mouth Daily 30 capsule 6 06/04/2024 07/04/2024 Active sertraline 50 mg oral tablet (20 sources) Serotonin Reuptake Inhibitor Start: 07-26-2023 End: 02-12-2025 take 1 tablet by mouth once daily sertraline (Zoloft) 50 MG tablet Indications: Anxiety, generalized (CMS/HCC) Take 1 tablet (50 mg) by mouth Daily 30 tablet 11 02/13/2024 02/12/2025 Active Start: 03-15-2023 Sertraline 50 MG tablet TAKE [...] 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 Diabetes mellitus without complication (14 sources) Abnormal glucose tolerance test; Translations: [Other abnormal glucose] Onset: 06-04-2024 06-04-2024 Episodic Diabetes or abnormal glucose tolerance complicating ; childbirth; or the puerperium (4 sources) Gestational diabetes mellitus; Translations: [Gestational diabetes mellitus in , unspecified control] 06-18-2024 Episodic Diseases of white blood cells (1 source) Leukocytosis; Translations: [Elevated white blood cell count, unspecified] Chronic Immunizations and screening for infectious disease (2 sources) Exposure to sexually transmissible disorder; Translations: [Contact with and (suspected) exposure to infections with a predominantly sexual mode of transmission] 04-09-2024 Episodic Menstrual disorders (20 sources) Dysmenorrhea; Translations: [Irregular periods] Onset: 12-21-2016 12-21-2016 Chronic Other complications of (14 sources) Anemia of ; Translations: [Anemia complicating , unspecified trimester] Onset: 06-04-2024 06-04-2024 Chronic Other congenital anomalies (2 sources) Congenital [...] Translations: [BMI 27.0-27.9,adult] Onset: 08-29-2017 08-29-2017 Chronic Other and delivery including normal (18 sources) Second trimester ; Translations: [Encounter for supervision of normal , unspecified, second trimester] Onset: 06-04-2024 05-07-2024 Episodic Residual codes; unclassified (2 sources) Gestation period, 22 weeks; Translations: [22 weeks gestation of ] 05-07-2024 Episodic Residual codes; unclassified (10 sources) Gestation period, 26 weeks; Translations: [26 weeks gestation of ] Onset: 06-04-2024 06-04-2024 Episodic Residual codes; unclassified (2 sources) Gestation period, 28 weeks; Translations: [28 weeks gestation of ] 06-18-2024 Episodic Residual codes; unclassified (2 sources) Gestation period, 31 weeks; Translations: [31 weeks gestation of ] 07-02-2024 Episodic Unclassified (16 sources) Encounter for screening for malignant neoplasm of cervix; Translations: [Patient encounter status] Onset: 02-15-2017 Episodic Unclassified (2 sources) Patient encounter status; Translations: [Encounter for gynecological examination without abnormal finding] Unclassified (5 sources) History of COVID-19; Translations: [History of COVID-19] Onset: 02-03-2021 Unclassified (17 sources) OB Reminders Onset: 01-23-2024 01-23-2024 Past or Other Problems Problem Classification Problem [...] Name Value Interpretation Reference Range Facil ity Urinalysis macro (dipstick) panel (U)on 07-02-2024 Bilirubin, UA Negative Negative - 4(70) +++ mg/dL [facility] Blood, UA Negative Negative - 50 Milo/mcL [facility] Clarity, UA Clear [facility] Color, UA Yellow [facility] Glucose, UA Negative Negative - 2000(110) ++++ mg/dL [facility] Interpretation and review of laboratory results Abnormal [facility] Ketones, UA Positive Negative - 160(16) ++++ mg/dL [facility] Leukocytes, UA Many Negative - 500+++ Sonu/mcL [facility] Nitrite, UA Negative Negative - Positive [facility] pH, UA 7 5 - [address] [facility] Protein, UA Negative Negative - 2000(20) ++++ mg/dL [facility] Spec Grav, UA 1.02 1 - 1.[address] [facility] Urobilinogen, UA 1.0 0.2 - 12 mg/dL [facility] FAX REQUESTon 06-18-2024 FAX TO [phone] Normal [facility] Comment on above: Result Comment: Test ing performed at [place] [address] Performed By: #### F X, GTTP3 #### [place] [address] GTT 3HR GESTATIONALon 2023 Glucose [Mass/Vol] 57 mg/dL Low 65-140 [facility] Comment on above: Result Comment: Test ing performed at [place] [address] Performed By: #### F X, GTTP3 #### [place] [address] Glucose [Mass/Vol] 140 mg/dL Normal 65-165 [facility] Comment on above: Result Comment: Test ing performed at [place] [address] Performed By: #### F X, GTTP3 #### [place] [address] Glucose [Mass/Vol] 210 mg/dL High 65-190 [facility] Comment on above: Result Comment: Test ing performed at [place] [address] Performed By: #### F X, GTTP3 #### [place] [address] Glucose [Mass/Vol] 96 mg/dL Normal <100 [facility] Comment on above: Result Comment: Test ing performed at [place] [address] Performed By: #### F X, GTTP3 #### [place] [address] Urinalysis macro (dipstick) panel (U)on 06-04-2024 Bilirubin, UA Negative Negative - 4(70) +++ mg/dL [facility] Blood, UA Positive Negative - 50 Milo/mcL [facility] Comment on above: trace Clarity, UA Clear [facility] Color, UA Yellow [facility] Glucose, UA Negative Negative - 1999(110) ++++ mg/dL [facility] Interpretation and review of laboratory results Abnormal [facility] Ketones, UA Negative Negative - 160(16) ++++ mg/dL [facility] Leukocytes, UA Positive Negative - 500+++ Sonu/mcL [facility] Comment on above: small Nitrite, UA Negative Negative - Positive [facility] pH, UA 7 5 - [address] [facility] Protein, UA Negative Negative - 1999(20) ++++ mg/dL [facility] Spec Grav, UA 1.015 1 - 1.[address] [facility] Urobilinogen, UA 0.2 0.2 - 12 mg/dL [facility] CBCon 05-28-2024 ABSOLUTE BAS 0.0 10*3/uL Normal 0.0-0.2 [facility] Comment on above: Result Comment: Test ing performed at [place] [address] Performed By: #### A CBC, FX, GL1 #### [place] [address] ABSOLUTE EOS 0.0 10*3/uL Normal 0.0-0.7 [facility] Comment on above: Performed By: #### A CBC, FX, GL1 #### [place] [address] ABSOLUTE NEUTROPHIL COUNT 11.0 10*3/uL High 1.4-6.5 [facility] Comment on above: Performed By: #### A CBC, FX, GL1 #### [place] [address] Basophils/100 WBC (Bld) 0.1 % Normal 0.0-2.0 [facility] Comment on above: Performed By: #### A CBC, FX, GL1 #### [place] [address] DTYPE AUTO DIFF Normal [facility] Comment on above: Performed By: #### A CBC, FX, GL1 #### Testing performed at [address] [address] Eosinophils/100 WBC (Bld) 0.2 % Normal 0.0-11.0 [facility] Comment on above: Performed By: #### A CBC, FX, GL1 #### Testing performed at [address] [address] Lymphocytes (Bld) [#/Vol] 1.4 10*3/uL Normal 1.2-3.4 [facility] Comment on above: Performed By: #### A CBC, FX, GL1 #### Testing performed at [address] [address] Lymphocytes/100 WBC (Bld) 10.8 % Low 20.0-55.0 [facility] Comment on above: Performed By: #### A CBC, FX, GL1 #### Testing performed at [address] [address] Monocytes (Bld) [#/Vol] 0.6 10*3/uL Normal 0.0-0.7 [facility] Comment on above: Performed By: #### A CBC, FX, GL1 #### Testing performed at [address] [address] Monocytes/100 WBC (Bld) 4.2 % Normal 0.0-10.0 [facility] Comment on above: Performed By: #### A CBC, FX, GL1 #### Testing performed at [address] [address] Neutrophils/100 WBC (Bld) 84.7 % High 37.0-75.0 [facility] Comment on above: Performed By: #### A CBC, FX, GL1 #### Testing performed at [address] [address] Erythrocyte distribution width (RBC) [Ratio] 13.3 % Normal 11.5-14.5 [facility] Comment on above: Performed By: #### A CBC, FX, GL1 #### [place] [address] Hematocrit (Bld) [Volume fraction] 29.4 % Low 36.0-48.0 [facility] Comment on above: Performed By: #### A CBC, FX, GL1 #### [place] [address] Hemoglobin (Bld) [Mass/Vol] 10.0 g/dL Low 12.0-16.0 [facility] Comment on above: Performed By: #### A CBC, FX, GL1 #### [place] [address] MCH (RBC) [Entitic mass] 31.4 pg Normal 26.0-35.0 [facility] Comment on above: Performed By: #### A CBC, FX, GL1 #### [place] [address] MCHC (RBC) [Mass/Vol] 34.1 g/dL Normal 27.0-37.0 [facility] Comment on above: Performed By: #### A CBC, FX, GL1 #### [place] [address] MCV (RBC) [Entitic vol] 92.0 fL Normal 80.0-100.0 [facility] Comment on above: Performed By: #### A CBC, FX, GL1 #### [place] [address] Platelet mean volume (Bld) [Entitic vol] 7.2 fL Low 7.4-11.0 [facility] Comment on above: Performed By: #### A CBC, FX, GL1 #### [place] [address] Platelets (Bld) [#/Vol] 403 10*3/uL High 130-400 [facility] Comment on above: Performed By: #### A CBC, FX, GL1 #### [place] [address] RBC (Bld) [#/Vol] 3.20 10*6/uL Low 4.0-5.4 [facility] Comment on above: Performed By: #### A CBC, FX, GL1 #### [place] [address] WBC (Bld) [#/Vol] 13.0 10*3/uL High 3.6-11.0 [facility] Comment on above: Performed By: #### A CBC, FX, GL1 #### [place] [address] FAX REQUESTon 05-28-2024 FAX TO [phone] Normal [facility] Comment on above: Result Comment: CONCHITA ECTED ON 05/28 AT 1651: PREVIOUSLY REPORTED [phone] Performed By: #### A CBC, FX, GL1 #### [place] [address] GLUCOSE 1 HR PCon 05-28-2024 Glucose [Mass/Vol] 146 mg/dL Normal 65-200 [facility] Comment on above: Result Comment: Test ing performed at [place] [address] Performed By: #### A CBC, FX, GL1 #### [place] [address] Urinalysis macro (dipstick) panel (U)on 05-07-2024 Bilirubin, UA Negative Negative - 4(70) +++ mg/dL [facility] Blood, UA Negative Negative - 50 Milo/mcL [facility] Clarity, UA Clear [facility] Color, UA Yellow [facility] Glucose, UA Negative Negative - 1999(110) ++++ mg/dL [facility] Interpretation and review of laboratory results Abnormal [facility] Ketones, UA Negative Negative - 160(16) ++++ mg/dL [facility] Leukocytes, UA Trace Negative - 500+++ Sonu/mcL [facility] Nitrite, UA Negative Negative - Positive [facility] pH, UA 7.0 5 - 9 [facility] Protein, UA Negative Negative - 1999(20) ++++ mg/dL [facility] Spec Grav, UA 1.010 1 - 1.[address] [facility] Urobilinogen, UA 0.2 0.2 - 12 mg/dL [facility] IGP,APTIMA HPV,AGE GDLNon AGE GDLN ACOG TESTING Note . [facility] Comment on above: TESTS RESULT FLAG UN ITS REF RANGE LAB Clinician Provided Cytology Information Source.............Cervix No. of containers..01 ThinPrep Vial Age Algo ACOG Viktoria... FLAG LEGEND: L-Low Normal,H-High Normal,LL-Alert Low,HH-Alert High <-Panic Low,>-Panic High,A-Abnormal,AA-Critical Abnormal Performed at: 01 =G [address] [address] Kayleen Nielson MD, IGP, RFX APTIMA HPV ASCU Note . [facility] Comment on above: TESTS RESULT FLAG U NITS REF RANGE LAB DIAGNOSIS: 02 NEGATIVE FOR INTRAEPITHELIAL LESION OR MALIGNANCY. Specimen adequacy: 02 Satisfactory for evaluation. No endocervical component is identified. Performed by: 02 Henok Adames, Steeple Jack (ASCP) . 02 Note: Note 02 The Pap smear is a screening test designed to aid in the detection of premalignant and malignant conditions of the uterine cervix. It is not a diagnostic procedure and should not be used as the sole means of detecting cervical cancer. Both false-positive and false-negative reports do occur. Test Methodology: Note 02 This liquid based ThinPrep(R) pap test was screened with the use of an image guided system. . 02 The HPV DNA reflex criteria were not met with this specimen result therefore, no HPV testing was performed. FLAG LEGEND: L-Low Normal,H-High Normal,LL-Alert Low,HH-Alert High <-Panic Low,>-Panic High,A-Abnormal,AA-Critical Abnormal Performed at: [address] [address] Kayleen Nielson MD, Performed at: = - Lab[address] [id number] Bee Rancher: Kayleen Nielson MD, Phone: [phone] Performed at: [address] [id number] Bee Rancher: Kayleen Nielson MD, Phone: [phone] SPATULA[facility] CERVIX [facility] URETHRITIS/DISCHARGE PLUS VA GINITIS (HTRX)on 04-10-2024 ATOPOBIUM VAGINAE 0.000 [facility] ATOPOBIUM VAGINAE Not detected [facility] BVAB 2,3 (BACTERIAL VAGINOSIS ASSOCIATED BACTERIA 2, 3); MOBILUNCUS SPP 0.000 [facility] BVAB 2,3 (BACTERIAL VAGINOSIS ASSOCIATED BACTERIA 2, 3); MOBILUNCUS SPP Not detected [facility] OMER ALBICANS, PARAPSILOSIS, TROPICALIS 0.[address] [facility] OMER ALBICANS, PARAPSILOSIS, TROPICALIS Not detected [facility] OMER GLABRATA 0.[address] [facility] OMER GLABRATA Not detected [facility] OMER KRUSEI 0.[address] [facility] OMER KRUSEI Not detected [facility] CHLAMYDIA TRACHOMATIS 0.[address] [facility] CHLAMYDIA TRACHOMATIS Not detected [facility] GARDNERELLA VAGINALIS 0.[address] [facility] GARDNERELLA VAGINALIS Not detected [facility] MEGASPHAERA (TYPES 1, 2) 0.[address] [facility] MEGASPHAERA (TYPES 1, 2) Not detected [facility] MYCOPLASMA GENITALIUM 0.[address] [facility] MYCOPLASMA GENITALIUM Not detected [facility] NEISSERIA GONORRHOEAE 0.[address] [facility] NEISSERIA GONORRHOEAE Not detected [facility] TRICHOMONAS VAGINALIS 0.[address] [facility] TRICHOMONAS VAGINALIS Not detected [facility] Urinalysis macro (dipstick) panel (U)on 04-09-2024 Bilirubin, UA Negative Negative - 4(70) +++ mg/dL [facility] Blood, UA Negative Negative - 50 Milo/mcL [facility] Clarity, UA Cloudy [facility] Color, UA Yellow [facility] Glucose, UA Negative Negative - 1999(110) ++++ mg/dL [facility] Interpretation and review of laboratory results Abnormal [facility] Ketones, UA Negative Negative - 160(16) ++++ mg/dL [facility] Leukocytes, UA Positive Negative - 500+++ Sonu/mcL [facility] Nitrite, UA Negative Negative - Positive [facility] Comment on above: small pH, UA 8.0 5 - [address] [facility] Protein, UA Negative Negative - 2000(20) ++++ mg/dL [facility] Spec Grav, UA 1.020 1 - 1.[address] [facility] Urobilinogen, UA 0.2 0.2 - 12 mg/dL [facility] RPRon 02-10-2024 Reagin Ab RPR Ql (S) Non-Reactive Normal NONREACTIVE A [facility] Comment on above: Result Comment: Test ing performed at [place] [address] Performed By: #### F X #### [place] [address] RUBELLA SCREENon 02-10-2024 RUBELLA SCREEN Positive Normal POSITIVE [facility] Comment on above: Result Comment: POSI TIVE RESULT INDICATES PRESUMED IMMUNITY Testing performed at [place] [address] Performed By: #### F X #### [place] [address] HEP B SURFACE AGon HEP B SURFACE AG Negative Normal NEGATIVE [facility] Comment on above: Performed By: #### F X #### [place] [address] HEP C ABon 02-07-2024 HEP C AB Negative Normal NEGATIVE [facility] Comment on above: Performed By: #### F X #### [place] [address] CBCon 02-06-2024 ABSOLUTE BAS 0.0 10*3/uL Normal 0.0-0.2 [facility] Comment on above: Result Comment: Test ing performed at [place] [address] Performed By: #### F X #### [place] [address] ABSOLUTE EOS 0.1 10*3/uL Normal 0.0-0.7 [facility] Comment on above: Performed By: #### F X #### [place] [address] ABSOLUTE NEUTROPHIL COUNT 9.0 10*3/uL High 1.4-6.5 [facility] Comment on above: Performed By: #### F X #### [place] [address] Basophils/100 WBC (Bld) 0.2 % Normal 0.0-2.0 [facility] Comment on above: Performed By: #### F X #### [place] [address] DTYPE AUTO DIFF Normal [facility] Comment on above: Performed By: #### F X #### Testing performed at [address] [address] Eosinophils/100 WBC (Bld) 0.6 % Normal 0.0-11.0 [facility] Comment on above: Performed By: #### F X #### Testing performed at [address] [address] Lymphocytes (Bld) [#/Vol] 2.2 10*3/uL Normal 1.2-3.4 [facility] Comment on above: Performed By: #### F X #### Testing performed at [address] [address] Lymphocytes/100 WBC (Bld) 18.4 % Low 20.0-55.0 [facility] Comment on above: Performed By: #### F X #### Testing performed at [address] [address] Monocytes (Bld) [#/Vol] 0.8 10*3/uL High 0.0-0.7 [facility] Comment on above: Performed By: #### F X #### Testing performed at [address] [address] Monocytes/100 WBC (Bld) 6.3 % Normal 0.0-10.0 [facility] Comment on above: Performed By: #### F X #### Testing performed at [address] [address] Neutrophils/100 WBC (Bld) 74.5 % Normal 37.0-75.0 [facility] Comment on above: Performed By: #### F X #### Testing performed at [address] [address] Erythrocyte distribution width (RBC) [Ratio] 13.5 % Normal 11.5-14.5 [facility] Comment on above: Performed By: #### F X #### Testing performed at [address] [address] Hematocrit (Bld) [Volume fraction] 36.2 % Normal 36.0-48.0 [facility] Comment on above: Performed By: #### F X #### Testing performed at [address] [address] Hemoglobin (Bld) [Mass/Vol] 12.0 g/dL Normal 12.0-16.0 [facility] Comment on above: Performed By: #### F X #### Testing performed at [address] [address] MCH (RBC) [Entitic mass] 29.6 pg Normal 26.0-35.0 [facility] Comment on above: Performed By: #### F X #### Testing performed at [address] [address] MCHC (RBC) [Mass/Vol] 33.0 g/dL Normal 27.0-37.0 [facility] Comment on above: Performed By: #### F X #### Testing performed at [address] [address] MCV (RBC) [Entitic vol] 89.7 fL Normal 80.0-100.0 [facility] Comment on above: Performed By: #### F X #### Testing performed at [address] [address] Platelet mean volume (Bld) [Entitic vol] 6.9 fL Low 7.4-11.0 [facility] Comment on above: Performed By: #### F X #### Testing performed at [address] [address] Platelets (Bld) [#/Vol] 406 10*3/uL High 130-400 [facility] Comment on above: Performed By: #### F X #### Testing performed at [address] [address] RBC (Bld) [#/Vol] 4.04 10*6/uL Normal 4.0-5.4 [facility] Comment on above: Performed By: #### F X #### Testing performed at [address] [address] WBC (Bld) [#/Vol] 12.1 10*3/uL High 3.6-11.0 [facility] Comment on above: Performed By: #### F X #### [place] [address] FAX REQUESTon 02-06-2024 FAX TO [phone] [facility] Comment on above: Result Comment: Test ing performed at [place] [address] Performed By: #### F X #### [place] [address] FAX TO [phone] [facility] Comment on above: Result Comment: Test ing performed at [place] [address] Performed By: #### F X #### [place] [address] FAX TO [phone] [facility] Comment on above: Result Comment: Test ing performed at [place] [address] Performed By: #### F X #### [place] [address] FAX TO [phone] [facility] Comment on above: Result Comment: Test ing performed at [place] [address] Performed By: #### F X #### [place] [address] FAX TO [phone] [facility] Comment on above: Result Comment: Test ing performed at [place] [address] Performed By: #### F X #### [place] [address] HEMOGLOBIN A1Con 02-06-2024 Glucose [Mass/Vol] 100 mg/dL Normal [facility] Comment on above: Result Comment: Test ing performed at [place] [address] Performed By: #### F X #### [place] [address] HbA1c (Bld) [Mass fraction] 5.1 % Normal 0-6 [facility] Comment on above: Result Comment: NORMAL <5.7% PREDIABETES 5.7-6.4% DIABETES 6.5% OR HIGHER Performed By: #### F X #### [place] [address] HIV 1,2 ABon 02-06-2024 HIV 1,2 Non-Reactive Normal NONREACTIVE [facility] Comment on above: Result Comment: Test ing performed at [place] [address] Performed By: #### F X #### [place] [address] TYPE AND SCREEN CROSSMATCH C ONVERTIBLEon 02-06-2024 TYPE AND SCREEN CROSSMATCH CONVERTIBLE WORKUP EXPIRES 02/09/2024,2359 ABO/RH(D) O POSITIVE ANTIBODY SCREEN NEGATIVE ARM BAND NUMBER [id number] Testing performed at [place] [address] Normal [facility] Comment on above: Performed By: #### T SCC #### [place] [address] URINE CULTUREon 02-06-2024 Bacteria identified Cx Nom (U) SPECIMEN DESCRIPTION URINE CLEAN CATCH CULTURE NO PATHOGENS ISOLATED * Result Note: Testing performed at [place] [address] * REPORT STATUS 02/08/2024 * Result Note: FINAL * Normal [facility] Comment on above: Performed By: #### A URNC #### [place] [address] ECHOCARDIOGRAM TREADMILL STR ESS TESTOrdered By: Gerardo [...] were monitored. An Echocardiogram was performed by set up mold technician in four stages in quad fashion. At peak stress, four selected images were obtained and placed side by side with resting images for comparison. Stress Test Details Test: Exercise stress testing was performed using a Rodger protocol. HR Resting HR: 109 bpm Max Heart Rate (APMHR): 194.415108 bpm Max HR Achieved: 200 bpm Target HR (85% APMHR): 164.085867 bpm % of APMHR: 103.09 Recovery HR: [...] 13.70 METs Scale: Active Angina Score: None Education Everytime User, Interfaces - 02/18/2021 12:14 AM EDT [...] were monitored. An Echocardiogram was performed by set up mold technician in four stages in quad fashion. At peak stress, four selected images were obtained and placed side by side with resting images for comparison. Stress Test Details Test: Exercise stress testing was performed using a Rodger protocol. HR Resting HR: 109 bpmMax Heart Rate (APMHR): 194.944653 bpm Max HR Achieved: 200 bpmTarget HR (85% APMHR): 164.951404 bpm % of APMHR: 103.09 Recovery HR: [...] 13.70 METs Scale: Active Angina Score: None [facility] ECGOrdered By: Gerardo Doan on 01-27-2021 [facility] B12 & FOLATEOrdered By: Yessy Doan on 01-17-2021 Cobalamin (Vitamin B12) [Mass/Vol] 383 pg/mL 239 - 931 PG/ML [facility] Folate [Mass/Vol] 19.7 ng/mL [facility] Comment on above: Testing performed at [place], [place] [address] [facility] CBC, EDIF, PLATELETOrdered B y: Gerardo Doan on 01-17-2021 ABSOLUTE BASOPHIL COUNT 0.1 10*3/uL 0.0 - 0.2 10*3/uL [facility] Comment on above: Testing performed at [place] [id number] Basophils/100 WBC (Bld) 0.4 % 0.0 - 2.0 % [facility] Differential cell count method Nom (Bld) AUTO DIFF % [facility] Eosinophils (Bld) [#/Vol] 0.10 10*3/uL 0.0 - 0.7 10*3/uL [facility] Eosinophils/100 WBC (Bld) 0.6 % 0.0 - 11.0 % [facility] Erythrocyte distribution width (RBC) [Ratio] 13.2 % 11.5 - 14.5 % [facility] Hematocrit (Bld) [Volume fraction] 39.3 % 36.0 - 48.0 % [facility] Hemoglobin (Bld) [Mass/Vol] 13.6 g/dL [facility] Interpretation and review of laboratory results Abnormal [facility] Lymphocytes (Bld) [#/Vol] 1.90 10*3/uL 1.2 - 3.4 10*3/uL [facility] Lymphocytes/100 WBC (Bld) 13.6 % Low 20.0 - 55.0 % [facility] MCH (RBC) [Entitic mass] 31.1 pg 26.0 - 35.0 PG [facility] MCHC (RBC) [Mass/Vol] 34.7 g/dL [facility] MCV (RBC) [Entitic vol] 89.6 fL [facility] Monocytes (Bld) [#/Vol] 0.5 10*3/uL 0.0 - 0.7 10*3/uL [facility] Monocytes/100 WBC (Bld) 3.5 % 0.0 - 10.0 % [facility] Neutrophils (Bld) [#/Vol] 11.3 10*3/uL High 1.4 - 6.5 10*3/uL [facility] Neutrophils/100 WBC (Bld) 81.9 % High 37.0 - 75.0 % [facility] Platelet mean volume (Bld) [Entitic vol] 7.6 fL [facility] Platelets (Bld) [#/Vol] 483 10*3/uL High 130.0 - 400.0 10*3/uL [facility] RBC (Bld) [#/Vol] 4.38 10*6/uL 4.0 - 5.4 10*6/uL [facility] WBC (Bld) [#/Vol] 13.8 10*3/uL High 3.6 - 11.0 10*3/uL [facility] COMPREHENSIVE METABOLIC PANE LOrdered By: Gerardo Doan on 01-17-2021 Albumin [Mass/Vol] 4.6 G/dl 3.5 - 5.0 G/dl [facility] Albumin/Globulin [Mass ratio] 1.4 {ratio} [facility] ALP [Catalytic activity/Vol] 57 U/L [facility] ALT [Catalytic activity/Vol] 18 U/L <35 IU/L [facility] AST [Catalytic activity/Vol] 21 U/L [facility] Bilirubin [Mass/Vol] 0.4 mg/dL [facility] Calcium [Mass/Vol] 10.3 mg/dL [facility] Chloride [Moles/Vol] 106 mmol/L [facility] Comment on above: Please note: Triglyc eride levels of 600mg/dL or higher may positively bias chloride results by approximately 2.1 mmol CO2 [Moles/Vol] 21 mmol/L [facility] Creatinine [Mass/Vol] 0.50 mg/dL Low [facility] GFR COMMENT Average GFR for 20-2 9 years old = 116. [facility] Comment on above: Chronic Kidney disea se, GFR = <60. Kidney failure, GFR = <15. The GFR estimate is not adjusted for extreme body surface area or acute process, nor has it been validated for women or ethnic groups other than and . Testing performed at [place], [place] [address] GFR/1.73 sq M.predicted among blacks MDRD (S/P/Bld) [Vol rate/Area] mL/min/{1.73_m2} ml/min/1.73sq.m [facility] GFR/1.73 sq M.predicted among non-blacks MDRD (S/P/Bld) [Vol rate/Area] mL/min/{1.73_m2} ml/min/1.73sq.m [facility] Glucose post fast [Mass/Vol] 105 mg/dL High [facility] Comment on above: NORMAL <100 mg/dL PREDIABETES 101-126 mg/dL DIABETES 126 mg/dL or higher Interpretation and review of laboratory results Abnormal [facility] Potassium [Moles/Vol] 4.1 mmol/L [facility] Protein [Mass/Vol] 8.0 g/dL [facility] Sodium [Moles/Vol] 138 mmol/L [facility] Urea nitrogen [Mass/Vol] 8 mg/dL [facility] HEMOGLOBIN [id number] By: Sa edi Doan on 01-17-2021 Glucose [Mass/Vol] 100 mg/dL [facility] Comment on above: Testing performed at [place], [place] [address] HbA1c (Bld) [Mass fraction] 5.1 % 0 - 6 % [facility] Comment on above: NORMAL <5.7% PREDIABETES 5.7-6.4% DIABETES 6.5% OR HIGHER [facility] IRON/IRON BINDING/TRANSFERRI NOrdered By: Gerardo Doan on 01-17-2021 Interpretation and review of laboratory results Abnormal [facility] Iron [Mass/Vol] 145 ug/dL [facility] Iron binding capacity [Mass/Vol] 505 High [facility] Iron saturation [Mass fraction] 29 % [facility] Comment on above: Testing performed at [place], [place] [address] [facility] TSHOrdered By: Gerardo Doan on 01-17-2021 TSH Qn 1.420 m[IU]/L [facility] Comment on above: Testing performed at [address] PROGRESSon 04-25-2018 [facility] NOTES Normal [facility] PROGRESSon 02-19-2018 [facility] NOTES Normal [facility] PROGRESSon 02-13-2018 [facility] NOTES Normal [facility] PAP, ThinPrep, rfx HPV ASCUS on 02-15-2017 Comment Normal [facility] Comment on above: Result Comment: IGLB P CPT CODE AUTOMATION: (NOTE)IGLBP CPT CODE AUTOMATION: This liquid based ThinPrep(R) pap test was screenedwith theIGLBP CPT CODE AUTOMATION: use of an image guided system. Performed By: #### L PRAS ####[facility] [address] [place] [address] lab Director: Dr. Lauro Merino, Diagnosis [facility] Comment on above: Result Comment: Comm ent(NOTE)NEGATIVE FOR INTRAEPITHELIAL LESION AND MALIGNANCY.CELLULAR CHANGES ASSOCIATED WITH INFLAMMATION ARE PRESENT.THIS SPECIMEN WAS RESCREENED PART OF OUR FORCE DISPATCHER PROGRAM. Performed By: #### L PRAS ####[facility] [id number] [place] [id number] lab Director: Dr. Lauro Merino DO IGLBP CPT COde Comment [facility] Comment on above: Performed By: #### L PRAS ####[facility]ology [address] [place] [id number] lab Director: Dr. Lauro Merino, Note [facility] Comment on above: Result Comment: Comm ent(NOTE)The Pap smear is a screening test designed to aid in the detection ofpremalignant and malignant conditions of the uterine cervix. It isnot a diagnostic procedure and should not be used as the sole meansof detecting cervical cancer. Both false-positive and false-negativereports do occur. Performed By: #### L PRAS ####[facility] [address] [place] [id number] Lab Director: Dr. Lauro Merino DO Performed By Comment Kareen Lucero, Steeple Jack [facility] Comment on above: Performed By: #### L PRAS ####[facility] [address] [facility] [place] [address] Lab Director: Dr. Lauro Merino DO Performed By [facility] Comment on above: Performed By: #### L PRAS ####[facility] [id number] [facility] [place] [address] Lab Director: Dr. Lauro Merino DO QC Reviewed By Comment Dedra Yip , Supervisory Steeple Jack (ASCP) [facility] Comment on above: Performed By: #### L PRAS ####[facility] [address] [place] [address] Lab Director: Dr. Lauro Merino DO Spec Adequacy [facility] Comment on above: Result Comment: Comm ent(NOTE)Satisfactory for evaluation. Endocervical and/or squamous metaplasticcells (endocervical component) are present. Performed By: #### L PRAS ####[facility] [id number] [place] [address] Lab Director: Dr. Lauro Merino DO Specimen # [id number] [facility] Comment on above: Performed By: #### L PRAS ####[facility] [address] [place] [address] Lab Director: Dr. Lauro Merino DO . [facility] Comment on above: Result Comment: Comm ent(NOTE)The HPV DNA reflex criteria were not met with this specimen resulttherefore, no HPV testing was performed.No. of containers..01 CYTYC Thin Prep VialPERFORMED AT [facility] Performed By: #### L PRAS ####[facility] [address] [place] [address] Lab Director: Dr. Lauro Merino, . . [facility] Comment on above: Performed By: #### L PRAS ####[facility] [address] [place] [address] lab Director: Dr. Lauro Merino, DO Vital Signs Date Time Vital Sign Value Performing Clinician Facility 07-02-2024 10:02-0500 Body weight 75.93 kg Jeanna Estes PA Work Phone: [facility] 07-02-2024 10:02-0500 Diastolic blood pressure 70 mm[Hg] Jeanna Meera PA Work Phone: [facility] 07-02-2024 10:02-0500 Systolic blood pressure 112 mm[Hg] Jeanna Meera PA Work Phone: [facility] 06-18-2024 15:14-0500 Body weight 76.11 kg Jeanna Meera PA Work Phone: [facility] 06-18-2024 15:14-0500 Diastolic blood pressure 76 mm[Hg] Jeanna Faywood PA Work Phone: [facility] 06-18-2024 15:14-0500 Systolic blood pressure 114 mm[Hg] Jeanna Faywood PA Work Phone: [facility] 06-04-2024 11:00-0500 Body weight 75.3 kg Eva Celso DO Work Phone: [facility] 06-04-2024 11:00-0500 Diastolic blood pressure 72 mm[Hg] Eva Celso DO Work Phone: [facility] 06-04-2024 11:00-0500 Systolic blood pressure 118 mm[Hg] Eva Celso DO Work Phone: [facility] 05-07-2024 10:50-0400 Body weight 76.11 kg Jeanna Meera PA Work Phone: [facility] 05-07-2024 10:50-0400 Diastolic blood pressure 70 mm[Hg] Jeanna Estes PA Work Phone: [facility] 05-07-2024 10:50-0400 Systolic blood pressure 120 mm[Hg] Jeanna Estes PA Work Phone: [facility] 04-09-2024 09:14-0400 Body weight 73.94 kg Eva Celso DO Work Phone: [facility] 04-09-2024 09:14-0400 Diastolic blood pressure 72 mm[Hg] Eva Celso DO Work Phone: [facility] 04-09-2024 09:14-0400 Systolic blood pressure 120 mm[Hg] Eva Celso DO Work Phone: [facility] 03-27-2023 09:16-0400 Body height 157.5 cm Ami Hay INSPECTOR WATCH TRAIN-RN CIRCULATING Work Phone: [facility] 03-27-2023 09:16-0400 Body mass index (BMI) [Ratio] 29.26 kg/m2 Ami Hay INSPECTOR WATCH TRAIN-RN CIRCULATING Work Phone: [facility] 03-27-2023 09:16-0400 Body weight 72.58 kg Ami Hay INSPECTOR WATCH TRAIN-RN CIRCULATING Work Phone: [facility] 03-27-2023 09:16-0400 Diastolic blood pressure 64 mm[Hg] Ami Hay INSPECTOR WATCH TRAIN-RN CIRCULATING Work Phone: [facility] 03-27-2023 09:16-0400 Systolic blood pressure 110 mm[Hg] Noni Hay INSPECTOR WATCH TRAIN-RN CIRCULATING Work Phone: [facility] 03-19-2022 10:05-0400 Body height 157.5 cm Lola Kirby INSPECTOR WATCH TRAIN-RN CIRCULATING Work Phone: [facility] 03-19-2022 10:05-0400 Body mass index (BMI) [Ratio] 30.91 kg/m2 Lola Kirby INSPECTOR WATCH TRAIN-RN CIRCULATING Work Phone: [facility] 03-19-2022 10:05-0400 Body weight 76.66 kg Lola Kirby INSPECTOR WATCH TRAIN-RN CIRCULATING Work Phone: [facility] 03-19-2022 10:05-0400 Diastolic blood pressure 66 mm[Hg] Lola Kirby INSPECTOR WATCH TRAIN-RN CIRCULATING Work Phone: [facility] 03-19-2022 10:05-0400 Systolic blood pressure 122 mm[Hg] Lola Kirby INSPECTOR WATCH TRAIN-RN CIRCULATING Work Phone: [facility] 03-17-2021 13:57-0400 Body height 157.5 cm Lola Kirby INSPECTOR WATCH TRAIN-RN CIRCULATING Work Phone: [facility] 03-17-2021 13:57-0400 Body mass index (BMI) [Ratio] 28.9 kg/m2 Lola Kirby INSPECTOR WATCH TRAIN-RN CIRCULATING Work Phone: [facility] 03-17-2021 13:57-0400 Body weight 71.67 kg Lola Kirby INSPECTOR WATCH TRAIN-RN CIRCULATING Work Phone: [facility] 03-17-2021 13:57-0400 Diastolic blood pressure 76 mm[Hg] Lola Kirby INSPECTOR WATCH TRAIN-RN CIRCULATING Work Phone: [facility] 03-17-2021 13:57-0400 Systolic blood pressure 122 mm[Hg] Lola Kirby INSPECTOR WATCH TRAIN-RN CIRCULATING Work Phone: [facility] 02-01-2021 07:05-0400 Body height 157.5 cm Gerardo Doan MD Work Phone: [facility] 02-01-2021 07:05-0400 Body mass index (BMI) [Ratio] 29.07 kg/m2 Gerardo Doan MD Work Phone: [facility] 02-01-2021 07:05-0400 Body temperature 98.4 [degF] Gerardo Doan MD Work Phone: [facility] 02-01-2021 07:05-0400 Body weight 72.12 kg Gerardo Doan MD Work Phone: [facility] 02-01-2021 07:05-0400 Diastolic blood pressure 84 mm[Hg] Gerardo Doan MD Work Phone: [facility] 02-01-2021 07:05-0400 Heart rate 127 /min Gerardo Doan MD Work Phone: [facility] 02-01-2021 07:05-0400 Respiratory rate 18 /min Gerardo Doan MD Work Phone: [facility] 02-01-2021 07:05-0400 SaO2% (BldA) [Mass fraction] 99 % Gerardo Doan MD Work Phone: [facility] 02-01-2021 07:05-0400 Systolic blood pressure 130 mm[Hg] Gerardo Doan MD Work Phone: [facility] 01-17-2021 09:37-0400 Diastolic blood pressure 80 mm[Hg] Gerardo Doan MD Work Phone: [facility] 01-17-2021 09:37-0400 Heart rate 111 /min Gerardo Doan MD Work Phone: [facility] 01-17-2021 09:37-0400 Systolic blood pressure 130 mm[Hg] Gerardo Doan MD Work Phone: [facility] 01-17-2021 08:17-0400 Body height 157.5 cm Gerardo Doan MD Work Phone: [facility] 01-17-2021 08:17-0400 Body mass index (BMI) [Ratio] 28.74 kg/m2 Gerardo Doan MD Work Phone: [facility] 01-17-2021 08:17-0400 Body temperature 98.6 [degF] Gerardo Doan MD Work Phone: [facility] 01-17-2021 08:17-0400 Body weight 71.31 kg Gerardo Doan MD Work Phone: [facility] 01-17-2021 08:17-0400 Respiratory rate 18 /min Gerardo Doan MD Work Phone: [facility] 01-17-2021 08:17-0400 SaO2% (BldA) [Mass fraction] 99 % Gerardo Doan MD Work Phone: [facility] 03-15-2020 09:24-0400 BMI (Body Mass Index) 29.78 kg/m2 [facility] 03-15-2020 09:24-0400 Body Temperature 97.81 [degF] [facility] 03-15-2020 09:24-0400 Body weight 73.85 kg [facility] 03-15-2020 09:24-0400 BP Diastolic 62 mm[Hg] [facility] 03-15-2020 09:24-0400 BP Systolic 128 mm[Hg] [facility] 03-15-2020 09:24-0400 Height 157.5 cm [facility] 03-11-2019 14:45-0400 BMI (Body Mass Index) 28.9 kg/m2 [facility] 03-11-2019 14:45-0400 Body weight 71.67 kg [facility] 03-11-2019 14:45-0400 BP Diastolic 72 mm[Hg] [facility] 03-11-2019 14:45-0400 BP Systolic 120 mm[Hg] [facility] 03-11-2019 14:45-0400 Height 157.5 cm [facility] Encounters Encounter Date Encounter Type Care Provider Facility Start: 07-02-2024 End: 07-02-2024 Bamboo flowsheet Jeanna KONG Work Phone: [facility] Start: 07-02-2024 End: 07-02-2024 Bamboo flowsheet Jeanna KONG Work Phone: [facility] Start: 07-02-2024 End: 07-02-2024 Periodic preventive med est patient 18-39 yrs Jeanna KONG Work Phone: [facility] Comment on above: Third trimester preg niko; 31 weeks gestation of ; Anemia during in third trimester Start: 06-18-2024 End: 06-18-2024 flow sheet Jeanna KONG Work Phone: [facility] Comment on above: Third trimester preg niko; 28 weeks gestation of ; Anemia during in third trimester; Gestational diabetes mellitus (GDM), antepartum, gestational diabetes method of control unspecified; Elevated glucose tolerance test Start: 06-18-2024 End: 06-18-2024 ambulatory JEANNA ESTES Not Available Start: 06-18-2024 End: 06-18-2024 Bamboo flowsheet Jeanna KONG Work Phone: [facility] Start: 06-18-2024 End: 06-18-2024 Bamboo flowsheet Jeanna KONG Work Phone: [facility] Start: 06-18-2024 ambulatory EV[facility] CELSO [facility] Start: 06-04-2024 End: 06-04-2024 Bamboo flowsheet Eva Celso DO Work Phone: [facility] Start: 06-04-2024 End: 06-04-2024 Bamboo flowsheet Eva Celso DO Work Phone: [facility] Start: 06-04-2024 End: 06-04-2024 flow sheet Eva Celso DO Work Phone: [facility] Comment on above: Second trimester pre gnancy; 26 weeks gestation of ; Elevated glucose tolerance test; Antepartum anemia Start: 06-04-2024 End: 06-04-2024 ambulatory EVA CELSO Not Available Start: 05-28-2024 ambulatory JEANNA ESTES [facility] Start: 05-07-2024 End: 05-07-2024 Bamboo flowsheet Jeanna KONG Work Phone: [facility] Start: 05-07-2024 End: 05-07-2024 Bamboo flowsheet Jeanna KONG Work Phone: [facility] Start: 05-07-2024 End: 05-07-2024 ambulatory JEANNA ESTES Not Available Start: 05-07-2024 End: 05-07-2024 flow sheet Jeanna KONG Work Phone: [facility] Comment on above: 22 weeks gestation o f ; Second trimester ; Diabetes mellitus screening Start: 04-09-2024 End: 04-09-2024 Bamboo flowsheet Eva Celso DO Work Phone: [facility] Start: 04-09-2024 End: 04-15-2024 Bamboo flowsheet Eva Celso DO Work Phone: [facility] Start: 04-09-2024 End: 04-15-2024 Clinisync Result Encounter Eva Celso DO Work Phone: [facility] External Department Unsolicited Start: 04-09-2024 End: 04-10-2024 External Result Encounter Eva Celso DO Work Phone: [facility] External Department Unsolicited Start: 04-09-2024 End: 04-09-2024 Patient encounter procedure Eva Celso DO Work Phone: [facility] Start: 04-09-2024 End: 04-09-2024 Periodic preventive med est patient 18-39 yrs Eva Celso DO Work Phone: [facility] Comment on above: Well woman exam with routine gynecological exam; Exposure to STD; Second trimester ; Need for maternal serum alpha-protein (MSAFP) screening; Screening, , for anatomic survey Start: 04-09-2024 End: 04-09-2024 ambulatory EVA CELSO Not Available Start: 03-12-2024 End: 03-12-2024 ambulatory JEANNA ESTES Not Available Start: 02-13-2024 End: 02-13-2024 ambulatory EVA CELSO Not Available Start: 02-06-2024 ambulatory [facility] Start: 01-23-2024 End: 01-23-2024 ambulatory JEANNA ESTES Not Available Start: 03-27-2023 End: 03-27-2023 Patient encounter status Noni Patel APRN-RN CIRCULATING Work Phone: [facility] Work Phone: Start: 03-27-2023 End: 03-27-2023 Periodic preventive med est patient 18-39 yrs Noni Patel INSPECTOR WATCH TRAINiWatt Work Phone: [facility] POWER SWITCHBOARD OPERATOR Comment on above: Encounter for gyneco logical examination without abnormal finding (Primary Dx); Screening for cervical cancer; Encounter for surveillance of contraceptive pills Start: 03-19-2022 End: 03-19-2022 Patient encounter status Lola Kirby INSPECTOR WATCH TRAINiWatt Work Phone: [facility] POWER SWITCHBOARD OPERATOR Start: 03-19-2022 End: 03-19-2022 Periodic preventive med est patient 18-39 yrs Lola Kirby INSPECTOR WATCH TRAINiWatt Work Phone: [facility] POWER SWITCHBOARD OPERATOR Comment on above: Encounter for gyneco logical examination without abnormal finding (Primary Dx); Initiation of oral contraception Start: 03-17-2021 End: 03-17-2021 Patient encounter status Lola Kirby INSPECTOR WATCH TRAINiWatt Work Phone: [facility] POWER SWITCHBOARD OPERATOR Start: 03-17-2021 End: 03-17-2021 Periodic preventive med est patient 18-39 yrs Lola Kirby INSPECTOR WATCH TRAINiWatt Work Phone: [facility] POWER SWITCHBOARD OPERATOR Comment on above: Encounter for gyneco logical examination without abnormal finding (Primary Dx); Encounter for surveillance of contraceptive pills Start: 02-17-2021 End: 02-17-2021 Subsequent hospital visit by physician Gerardo Doan MD Work Phone: [employer] [facility] Comment on above: Arrived Start: 02-01-2021 End: 02-01-2021 Office outpatient visit 25 minutes [facility]ardo Doan MD [facility] Comment on above: Murmur (Primary Dx); History of COVID-19; Abnormal EKG; Generalized anxiety disorder; Fluid level behind tympanic membrane of both ears; Leukocytosis, unspecified type Start: 01-27-2021 End: 01-27-2021 Subsequent hospital visit by physician Gerardo Doan MD Work Phone: [facility] Comment on above: Arrived Start: 01-17-2021 End: 01-17-2021 Office outpatient visit 25 minutes Gerardo Doan MD Work Phone: [facility] Comment on above: Lightheadedness (Jaycee mandi Dx); Screening for condition; BMI 28.0-28.9,adult; Irregular periods/menstrual cycles; Menorrhagia with regular cycle; Fluid level behind tympanic membrane of both ears; Iron deficiency anemia due to chronic blood loss Start: 03-15-2020 End: 03-15-2020 Periodic preventive med est patient 18-39 yrs Lola Kirby Work Phone: [facility] POWER SWITCHBOARD OPERATOR Comment on above: Encounter for gyneco logical examination without abnormal finding (Primary Dx); Encounter for surveillance of contraceptive pills Start: 03-11-2019 End: 03-11-2019 Periodic preventive med est patient 18-39 yrs Lola Kirby Work Phone: [facility] POWER SWITCHBOARD OPERATOR Comment on above: Encounter for gyneco logical examination without abnormal finding (Primary Dx); Encounter for surveillance of contraceptive pills Start: 11-19-2018 End: 11-19-2018 Patient encounter procedure Other Other [facility] Start: 04-25-2018 Patient encounter [facility] Start: 02-19-2018 Patient encounter [facility] Start: 02-13-2018 Patient encounter [facility] Start: 02-15-2017 End: 02-16-2017 Ambulatory LOLA KIRBY [place] [facility] pital Procedures Date Procedure Procedure Detail Performing Clinician Start: 07-02-2024 Urnls dip stick/tabl et rgnt non-auto w/o micrscp Jeanna KONG Work Phone: Start: 06-04-2024 Urnls dip stick/tabl et rgnt non-auto w/o micrscp Eva Houston DO Work Phone: Start: 05-07-2024 Urnls dip stick/tabl et rgnt non-auto w/o micrscp Jeanna KONG Work Phone: Start: 04-09-2024 URETHRITIS/DISCHARGE PLUS VAGINITIS (HTRX) Eva Houston DO Work Phone: Start: 04-09-2024 Urnls dip stick/tabl et rgnt non-auto w/o micrscp Eva Soteloo DO Work Phone: Start: 04-09-2024 IGP,APTIMA HPV,AGE GDLN Evalibby Soteloo DO Work Phone: Start: 03-17-2021 PAP IG, RFX HPV ASCU Sh iggy Kirby INSPECTOR WATCH TRAIN-RN CIRCULATING Work Phone: Start: 02-17-2021 Echo tthrc r-t [...] Start: 03-15-2020 PAP IG, RFX HPV ASCU Shira Kirby Work Phone: Plan of Treatment Date Care Activity Detail Author Start: 04-19-2027 Tetanus vaccination [facility] Start: 07-02-2024 End: 07-02-2025 Transferrin [Mass/volume] in Serum or Plasma Transferrin Lab Routine Anemia during in third trimester Expected: 07/02/2024 (Approximate), Expires: 07/02/2025 [facility] Comment on above: Expected: 07/02/2024 (Approximate), Expi res: 07/02/2025 Start: 07-02-2024 End: 07-02-2024 Patient encounter procedure [facility] Comment on above: Arrived Start: 06-18-2024 End: 06-18-2024 Patient encounter procedure [facility] Comment on above: Arrived Start: 06-04-2024 End: 06-04-2025 Measurement of glucose 3 hours after glucose challenge for glucose tolerance test Glucose tolerance, 3 hours Lab Routine Elevated glucose tolerance test Expected: 06/04/2024 (Approximate), Expires: 06/04/2025 [facility] Work Phone: Comment on above: Expected: 06/04/2024 (Approximate), Expi res: 06/04/2025 Start: 06-04-2024 End: 06-04-2024 Patient encounter procedure [facility] Comment on above: Arrived Start: 05-07-2024 End: 05-07-2025 CBC panel - Blood by Automated count CBC Lab Routine Diabetes mellitus screening Expected: 05/07/2024 (Approximate), Expires: 05/07/2025 [facility] Work Phone: Comment on above: Expected: 05/07/2024 (Approximate), Expi res: 05/07/2025 Start: 05-07-2024 End: 05-07-2025 Measurement of glucose 1 hour after glucose challenge for glucose tolerance test Glucose tolerance, 1 hour Lab Routine Diabetes mellitus screening Expected: 05/07/2024 (Approximate), Expires: 05/07/2025 [facility] Comment on above: Expected: 05/07/2024 (Approximate), Expi res: 05/07/2025 Start: 05-07-2024 End: 05-07-2024 Patient encounter procedure 05/07/2024 10:30 AM EDT Routine [facility] [address] [place] [address] Jeanna Estes PA [address] [place], [place] [id number] [facility] Start: 04-23-2024 End: 04-23-2024 Professional / ancillary services management 04/23/2024 8:00 AM EDT Ancillary Procedure [facility] [address] [place] [address] [facility] Start: 04-09-2024 End: 05-09-2024 Alpha fetoprotein, maternal Alpha fetoprotein, maternal Lab Routine Need for maternal serum alpha-protein (MSAFP) screening Expected: 04/09/2024 (Approximate), Expires: 05/09/2024 [facility] Comment on above: Expected: 04/09/2024 (Approximate), Expi res: 05/09/2024 Start: 04-09-2024 End: 04-09-2025 US for US OB ANATOMY SINGLE W US OB CERVICAL LENGTH Imaging Routine Screening, , for anatomic survey Expected: 04/09/2024 (Approximate), Expires: 04/09/2025 [facility] Comment on above: Expected: 04/09/2024 (Approximate), Expi res: 04/09/2025 Start: 04-09-2024 End: 04-09-2024 Patient encounter procedure 04/09/2024 8:50 AM EDT Routine [facility] [address] [place] [phone] Eva Houston DO [address] [place] [address] Arrived [facility] Comment on above: Arrived Start: 04-01-2024 End: 04-01-2024 Patient encounter procedure 04/01/2024 8:50 AM EDT Office Visit [facility] POWER SWITCHBOARD OPERATOR [address] [place] [address] [phone] Noni Patel INSPECTOR WATCH TRAIN-RN CIRCULATING [address] [place] [address] [phone] [facility] POWER SWITCHBOARD OPERATOR Start: 03-27-2024 Screening for malignant neoplasm of cervix CERVICAL CANCER SCREENING DISCUSSION [facility] Start: 03-29-2023 Influenza vaccination INFLUENZA VACCINE (#1) [facility] Start: 03-21-2023 End: 03-21-2023 Patient encounter procedure 03/21/2023 Office Visit POWER SWITCHBOARD OPERATOR Lola Kirby INSPECTOR WATCH TRAIN-RN CIRCULATING [id number] [place] [address] [phone] [facility] POWER SWITCHBOARD OPERATOR Start: 03-19-2023 Screening for malignant neoplasm of cervix CERVICAL CANCER SCREENING DISCUSSION [facility] Start: 03-29-2022 Influenza vaccination INFLUENZA VACCINE (#1) [facility] Start: 03-23-2022 End: 03-23-2022 Patient encounter procedure 03/23/2022 Office Visit POWER SWITCHBOARD OPERATOR Lola Kirby, INSPECTOR WATCH TRAIN-RN CIRCULATING [id number] [place] [address] [facility] POWER SWITCHBOARD OPERATOR Start: 03-17-2022 Screening for malignant neoplasm of cervix CERVICAL CANCER SCREENING DISCUSSION [facility] Start: 03-29-2021 Influenza vaccination [facility] Start: 03-17-2021 End: 03-17-2021 Patient encounter procedure 03/17/2021 Office Visit POWER SWITCHBOARD OPERATOR Lola Kirby, INSPECTOR WATCH TRAIN-RN CIRCULATING [id number] [place] [address] [facility] POWER SWITCHBOARD OPERATOR Start: 03-17-2021 End: 03-17-2021 Office Visit 03/17/2021 Office Visit POWER SWITCHBOARD OPERATOR Lola Kirby, INSPECTOR WATCH TRAIN-RN CIRCULATING [id number] [place] [address] [facility] POWER SWITCHBOARD OPERATOR Start: 03-15-2021 Screening for malignant neoplasm of cervix CERVICAL CANCER SCREENING DISCUSSION [facility] Start: 02-28-2021 End: 02-28-2021 Patient encounter procedure 02/28/2021 Office Visit Family Medicine Gerardo Doan MD [address] [facility] [place] [address] [facility] Start: 02-01-2021 End: 02-01-2022 Complete blood count with white cell differential, automated CBC, EDIF, PLATELET Lab Routine Leukocytosis, unspecified type Expected: 02/01/2021, Expires: 02/01/2022 [facility] Comment on above: Expected: 02/01/2021, Expires: 2 Start: 02-01-2021 End: 02-01-2022 Exercise stress echocardiography ECHOCARDIOGRAM TREADMILL STRESS TEST Stress Echocardiography Routine Murmur History of COVID-19 Abnormal EKG Expected: 02/01/2021, Expires: 02/01/2022 [facility] Comment on above: Expected: 02/01/2021, Expires: 2 Start: 02-01-2021 End: 02-01-2021 Patient encounter procedure 02/01/2021 Office Visit Family Medicine Gerardo Doan MD [address] [facility] [place] [phone] [facility] Start: 01-17-2021 End: 01-17-2022 Standard ECG ECG ECG Routine Lightheadedness Expected: 01/17/2021, Expires: 01/17/2022 [facility] Comment on above: Expected: 01/17/2021, Expires: 2 Start: 06-15-2020 End: 03-15-2021 [place] CYTOLOGY-BIRTH ATTENDANT, LIQUID BASED [facility] ATTENDANT, LIQUID BASED Cytology Routine Encounter for gynecological examination without abnormal finding Expected: 06/15/2020, Expires: 03/15/2021 [facility] Comment on above: Expected: 06/15/2020, Expires: 1 Start: 03-29-2020 Influenza vaccination INFLUENZA VACCINE (#1) [facility] Start: 03-11-2020 Screening for malignant neoplasm of cervix CERVICAL CANCER SCREENING DISCUSSION [facility] Start: 03-29-2019 Influenza vaccination [facility] Start: 03-11-2019 End: 03-11-2020 [place] CYTOLOGY-BIRTH ATTENDANT, LIQUID BASED [place] CYTOLOGY-BIRTH ATTENDANT, LIQUID BASED Cytology Routine Encounter for gynecological examination without abnormal finding Expected: 03/11/2019, Expires: 03/11/2020 [facility] Comment on above: Expected: 03/11/2019, Expires: 0 Start: 02-20-2019 End: 02-20-2019 Office Visit 02/20/2019 Office Visit 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 Lola Kirby, INSPECTOR WATCH TRAIN-RN CIRCULATING [id number] [place] [address] [phone] [facility] POWER SWITCHBOARD OPERATOR Start: 02-18-2019 Screening for malignant neoplasm of cervix PAP SMEAR DISCUSSION [facility] Start: 02-15-2018 Screening for malignant neoplasm of cervix PAP SMEAR DISCUSSION [facility] Start: 01-26-2016 Tetanus vaccination TETANUS [facility] Start: 2013 Third diphtheria, tetanus and acellular pertussis (DTaP) vaccination TDAP (ADULT) [facility] Start: 2010 Screening for Chlamydia trachomatis CHLAMYDIA SCREEN [facility] Start: 2009 HIV screening HIV SCREENING DISCUSSION [facility] Start: 11-09-2007 HIV screening HIV SCREENING DISCUSSION [facility] Start: 2006 COVID-19 VACCINE (1) COVID-19 VACCINE (1) [facility] Start: 05-10-1995 COVID-19 VACCINE (#1) COVID[facility]19 [facility]ACCINE (#1[facility] Start: 1994 GONORRHEA SCREEN GONORRHEA SCREEN [facility] Start: 1994 Hepatitis C antibody, confirmatory test HEPATITIS C VIRUS SCREENING [facility] Start: 1994 Hepatitis C screening HEPATITIS C VIRUS SCREENING [facility] CBC panel - Blood by Automated count CBC Lab Routine Anemia during in third trimester Ordered: 06/18/2024 [facility] Work Phone: Comment on above: Ordered: 06/18/2024 CHLAMYDIA TRACHOMATI S (GENITO/STI) CHLAMYDIA TRACHOMATIS (GENITO/STI) Lab Routine Exposure to STD Ordered: 04/09/[address] [facility] Comment on above: Ordered: 04/09/2024 Cytology Cervical or vaginal smear or scraping study Pap Smear Pathology and Cytology Routine Well woman exam with routine gynecological exam Ordered: 04/09/[address] [facility] Comment on above: Ordered: 04/09/2024 Ferritin [Mass/volum e] in Serum or Plasma Ferritin Lab Routine Anemia during in third trimester Ordered: 07/02/2024 [facility] Work Phone: Comment on above: Ordered: 07/02/2024 Neisseria gonorrhoea e DNA [Presence] in Unspecified specimen by LINO with probe detection Neisseria gonorrhea DNA probe, direct Lab Routine Exposure to STD Ordered: 04/09/2024 [facility] Comment on above: Ordered: 04/09/2024 PAP IG, RFX HPV ASCU PAP IG, RFX HPV ASCU LAB SEND OUTS [facility], [facility] PAP IG, RFX HPV ASCU Cytology Routine 03/17/2021 1:55 PM [facility] Work Phone: PAP IG, RFX HPV ASCU PAP IG, RFX HPV ASCU Cytology Routine 03/19/2022 10:06 AM EDT [facility] PAP IG, RFX HPV ASCU PAP IG, RFX HPV ASCU Cytology Routine 03/27/2023 9:25 AM [facility] SURESWAB(R) ADVANCED VAGINITIS PLUS, TMA SURESWAB(R) ADVANCED VAGINITIS PLUS, TMA Pathology and Cytology Routine Exposure to STD Ordered: 04/09/2024 [facility] Work Phone: Comment on above: Ordered: 04/09/2024 Immunizations Immunization Date Immunization Notes Care Provider [facility] 05-20-2019 influenza virus vacc ine, unspecified formulation Lola [facility] 05-09-2016 influenza virus vacc ine, unspecified formulation Other [facility] 04-24-2012 meningococcal polysaccharide (groups A, C, Y and W-135) diphtheria toxoid conjugate vaccine (MCV4P) Other [facility] 09-02-2007 human papilloma viru s vaccine, bivalent Other [facility] 05-02-2007 human papilloma viru s vaccine, bivalent Other [facility] 02-11-2007 human papilloma viru s vaccine, bivalent Other [facility] 02-11-2007 meningococcal polysaccharide (groups A, C, Y and W-135) diphtheria toxoid conjugate vaccine (MCV4P) Other [facility] 02-11-2007 varicella virus vaccine Other [facility] 01-25-2006 tetanus toxoid, redu cate diphtheria toxoid, and acellular pertussis vaccine, adsorbed Other [facility] 03-03-2001 varicella virus vaccine Other [facility] 11-14-1999 measles, mumps and r ubella virus vaccine Other [facility] 06-15-1996 diphtheria, tetanus toxoids and acellular pertussis vaccine Other Other [facility] 03-10-1996 haemophilus influenz ae type b vaccine, conjugate unspecified formulation Other Other [facility] 03-10-1996 measles, mumps and r ubella virus vaccine Other Other [facility] 08-13-1995 hepatitis B vaccine, pediatric or pediatric/adolescent dosage Other Other [facility] 04-11-1995 poliovirus vaccine, inactivated Other Other [facility] 02-01-1995 hepatitis B vaccine, pediatric or pediatric/adolescent dosage Other Other [facility] 1994 hepatitis B vaccine, pediatric or pediatric/adolescent dosage Other Other [facility] Payers Date Payer Category Payer Private Health Insurance [employer] [id number] 2021 Unknown [id number] 2021 Unknown [id number] 2016 Unknown 2014 Unknown [id number] 1994 Unknown [id number] 983 1994 Unknown [id number]. 983 1994 Unknown [id number]. 983 1994 Unknown [id number]. 1259 1994 Unknown [id number]. 1259 1994 Unknown [id number]. 9 1994 Unknown [id number]. 9 1994 Unknown [id number]. 9 1994 Unknown [id number]. 9 1994 Unknown [id number]. 1259 Social History Date Type Detail Facility Start: 03-15-2020 End: 03-27-2023 Tobacco smoking status [facility] Never smoker [facility] Start: 03-15-2020 End: 03-27-2023 Tobacco use and exposure Never used [facility] Start: 03-15-2020 End: 03-27-2023 Alcohol intake Current drinker of alcohol (finding) [facility] Start: 02-03-2020 End: 03-15-2020 History SDOH Alcohol Frequency 2 [facility] Start: 02-18-2018 Alcohol Comment consumes rarely [facility] Start: 1994 Sex Assigned At Not on file [facility] [employer] Start: 03-11-2019 End: 03-27-2023 Alcohol intake Yes [facility] Exposure to SARS-CoV -2 (event) Not sure [facility] Start: 03-15-2020 End: 03-27-2023 History of Social function [facility] How often to you hav e a drink containing alcohol? Monthly or less [facility] Average Number of Drinks Not on file [facility] Start: 01-03-2024 Gender identity Identifies as female gender (finding) [facility] unknown [facility] Start: 12-13-2023 [facility] Start: 1994 Sex assigned at Female [facility] Medical Equipment Procedure Code Equipment Code Equipment Origin al Text Equipment Identifier Dates 1 strip by In Vi tro route Daily Use in the morning prior to breakfast, 1 hour after each meal for a total of 4times daily. [id number] Start: 06-18-2024 End: 07-18-2024 1 each by In Vit ro route Daily Use to check FSBS four times daily [id number] Start: 06-18-2024 End: 07-18-2024 Goals Date Patient Goal Desired Activity /State Personal health goal Comment on above: 1. The patient will have orthotics that allow her to return to all normal activities with minimal to no restriction d/t right foot and knee pain. Clinical Notes 01-17-2021 to 07-02-2024 DILAN Mcadams - 07/02/2024 9:30 AM DILAN Desai - 06/18/2024 2:50 PM Rod Vogt LPN - 06/04/2024 10:10 AM DILAN Desai - 05/07/2024 10:30 AM Makayla Messina - 02/01/2021 7:00 AM EDT Note Date & Type Note Facility 07-02-2024 History of Presen t illness Narrative Reason for Appointment: Patient ID: Citlali Muñiz is a 28 y.o. female who presents for Routine Visit Patient presents today for Return OB appointment. MEDICATIONS Current Outpatient Medications Medication Instructions Alcohol Swabs (Alcohol Prep Pad) 70 % pads 1 Pad, Topical, Daily, Use four times daily to check FSBS. bisacodyl (DULCOLAX) 10 mg, Rectal, Once as needed Blood Glucose Monitoring Suppl (D-Care Glucometer) w/Device kit 1 kit, Does not apply, Daily, Use four times daily to check FSBS. In the morning prior to breakfast & 1 hour after each meal for a total of 4times daily. Glucose Blood (Blood Glucose Test) strip 1 strip, In Vitro, Daily, Use in the morning prior to breakfast, 1 hour after each meal for a total of 4times daily. iron polysaccharides (PROFE) 391.3 mg, Oral, Daily Lancets Ultra Thin misc 1 each, In Vitro, Daily, Use to check FSBS four times daily sertraline (Zoloft) 50 MG tablet sertraline (ZOLOFT) 50 mg, Oral, Daily ALLERGIES No Known Allergies PROBLEMS Active Ambulatory Problems Diagnosis Date Noted Antepartum anemia 06/04/2024 Elevated glucose tolerance test 06/04/2024 26 weeks gestation of 06/04/2024 Second trimester 06/04/2024 Resolved Ambulatory Problems Diagnosis Date Noted No Resolved Ambulatory Problems No Additional Past Medical History HISTORY PAST MEDICAL HISTORY SOCIAL HISTORY History reviewed. No pertinent past medical history. Social History Tobacco Use Smoking status: Not on file Smokeless tobacco: Not on file Substance Use Topics Alcohol use: Not on file Drug use: Not on file FAMILY HISTORY No family history on file. SURGICAL HISTORY History reviewed. No pertinent surgical history. REVIEW OF SYSTEMS Review of Systems: Review of Systems Constitutional: Negative. HENT: Negative. Eyes: Negative. Respiratory: Negative. Cardiovascular: Negative. Gastrointestinal: Negative. Genitourinary: Negative. Musculoskeletal: Negative. Skin: Negative. Neurological: Negative. All other systems reviewed and are negative. Hematological: Negative. Endocrine: Negative. Allergic/Immunologic: Negative. OBJECTIVE Objective: Physical Exam Constitutional: Appearance: Normal appearance. She is normal weight. HENT: Head: Normocephalic. Cardiovascular: Rate and Rhythm: Normal rate. Pulses: Normal pulses. Pulmonary: Effort: Pulmonary effort is normal. Breath sounds: Normal breath sounds. Abdominal: Palpations: Abdomen is soft. Musculoskeletal: General: Normal range of motion. Neurological: General: No focal deficit present. Mental Status: She is alert and oriented to person, place, and time. Psychiatric: Mood and Affect: Mood normal. Behavior: Behavior normal. Thought Content: Thought content normal. Judgment: Judgment normal. Vitals and nursing note reviewed. Vitals: There is no height or weight on file to calculate BMI. BP: 112/70 Patient's last menstrual period was 11/29/2023. ASSESSMENT & PLAN ICD-10-CM 1. Third trimester Z34.93 POCT urinalysis dipstick manually resulted 2. 31 weeks gestation of Z3A.31 POCT urinalysis dipstick manually resulted 3. Anemia during in third trimester O99.013 Ferritin Transferrin Transferrin Return OB: Patient presents today for a routine obstetrics appointment. Patient is currently 30w6d . Patient states she is doing well but has complaints of being tired due to current . Patient has verbalizes frequent movement. labor precautions was discussed/given and patient was instructed to perform kick counts three times a day. Patient taking pro fe, iron continues to drop, will send prior auth to [facility]. Pt given ferritin orders today Orders Placed This Encounter Procedures Ferritin Transferrin POCT urinalysis dipstick manually resulted Follow Up: Patient is to return to office in 2 week for routine OB appointment. Documented by DILAN Mcadams on behalf of: DILAN Mcadams documented in this encounter [facility] 06-18-2024 History of Presen t illness Narrative Reason for Appointment: Patient ID: Ctilali Muñiz is a 28 y.o. female who presents for Routine Visit Patient presents today for Return OB appointment. MEDICATIONS Current Outpatient Medications Medication Instructions Alcohol Swabs (Alcohol Prep Pad) 70 % pads 1 Pad, Topical, Daily, Use four times daily to check FSBS. bisacodyl (DULCOLAX) 10 mg, Rectal, Once as needed Blood Glucose Monitoring Suppl (D-Click Bus Glucometer) w/Device kit 1 kit, Does not apply, Daily, Use four times daily to check FSBS. In the morning prior to breakfast & 1 hour after each meal for a total of 4times daily. Glucose Blood (Blood Glucose Test) strip 1 strip, In Vitro, Daily, Use in the morning prior to breakfast, 1 hour after each meal for a total of 4times daily. iron polysaccharides (PROFE) 391.3 mg, Oral, Daily Lancets Ultra Thin misc 1 each, In Vitro, Daily, Use to check FSBS four times daily sertraline (Zoloft) 50 MG tablet sertraline (ZOLOFT) 50 mg, Oral, Daily ALLERGIES No Known Allergies PROBLEMS Active Ambulatory Problems Diagnosis Date Noted Antepartum anemia 06/04/2024 Elevated glucose tolerance test 06/04/2024 26 weeks gestation of 06/04/2024 Second trimester 06/04/2024 Resolved Ambulatory Problems Diagnosis Date Noted No Resolved Ambulatory Problems No Additional Past Medical History HISTORY PAST MEDICAL HISTORY SOCIAL HISTORY History reviewed. No pertinent past medical history. Social History Tobacco Use Smoking status: Not on file Smokeless tobacco: Not on file Substance Use Topics Alcohol use: Not on file Drug use: Not on file FAMILY HISTORY No family history on file. SURGICAL HISTORY History reviewed. No pertinent surgical history. REVIEW OF SYSTEMS Review of Systems: Review of Systems Constitutional: Negative. HENT: Negative. Eyes: Negative. Respiratory: Negative. Cardiovascular: Negative. Gastrointestinal: Negative. Genitourinary: Negative. Musculoskeletal: Negative. Skin: Negative. Neurological: Negative. All other systems reviewed and are negative. Hematological: Negative. Endocrine: Negative. Allergic/Immunologic: Negative. OBJECTIVE Objective: Physical Exam Constitutional: Appearance: Normal appearance. She is normal weight. HENT: Head: Normocephalic. Cardiovascular: Rate and Rhythm: Normal rate. Pulses: Normal pulses. Pulmonary: Effort: Pulmonary effort is normal. Breath sounds: Normal breath sounds. Abdominal: Palpations: Abdomen is soft. Musculoskeletal: General: Normal range of motion. Neurological: General: No focal deficit present. Mental Status: She is alert and oriented to person, place, and time. Psychiatric: Mood and Affect: Mood normal. Behavior: Behavior normal. Thought Content: Thought content normal. Judgment: Judgment normal. Vitals and nursing note reviewed. Vitals: There is no height or weight on file to calculate BMI. BP: 114/76 Patient's last menstrual period was 11/29/2023. ASSESSMENT & PLAN ICD-10-CM 1. Third trimester Z34.93 2. 28 weeks gestation of Z3A.28 3. Anemia during in third trimester O99.013 CBC 4. Gestational diabetes mellitus (GDM), antepartum, gestational diabetes method of control unspecified O24.419 Lancets Ultra Thin misc Alcohol Swabs (Alcohol Prep Pad) 70 % pads Glucose Blood (Blood Glucose Test) strip Blood Glucose Monitoring Suppl (D-Care Glucometer) w/Device kit 5. Elevated glucose tolerance test R73.09 Lancets Ultra Thin misc Alcohol Swabs (Alcohol Prep Pad) 70 % pads Glucose Blood (Blood Glucose Test) strip Blood Glucose Monitoring Suppl (D-Care Glucometer) w/Device kit Return OB: Patient presents today for a routine obstetrics appointment. Patient is currently 28w6d . Patient states she is doing well but has complaints of being tired due to current . Patient has verbalizes frequent movement. labor precautions was discussed/given and patient was instructed to perform kick counts three times a day. Orders Placed This Encounter Procedures CBC Follow Up: Patient is to return to office in 2 week for routine OB appointment. Documented by DILAN Mcadams on behalf of: DILAN Mcadams documented in this encounter [facility] 06-04-2024 History of Presen t illness Narrative Reason for Appointment: Patient ID: Citlali Muñiz is a 28 y.o. female who presents for Routine Visit Patient presents today for Return OB appointment. MEDICATIONS Current Outpatient Medications Medication Instructions bisacodyl (DULCOLAX) 10 mg, Rectal, Once as needed sertraline (Zoloft) 50 MG tablet sertraline (ZOLOFT) 50 mg, Oral, Daily ALLERGIES No Known Allergies PROBLEMS Active Ambulatory Problems Diagnosis Date Noted No Active Ambulatory Problems Resolved Ambulatory Problems Diagnosis Date Noted No Resolved Ambulatory Problems No Additional Past Medical History HISTORY PAST MEDICAL HISTORY SOCIAL HISTORY No past medical history on file. Social History Tobacco Use Smoking status: Not on file Smokeless tobacco: Not on file Substance Use Topics Alcohol use: Not on file Drug use: Not on file FAMILY HISTORY No family history on file. SURGICAL HISTORY No past surgical history on file. REVIEW OF SYSTEMS Review of Systems: Review of Systems All other systems reviewed and are negative. OBJECTIVE Objective: Physical Exam Constitutional: Appearance: Normal appearance. She is well-developed. Cardiovascular: Rate and Rhythm: Normal rate and regular rhythm. Pulmonary: Effort: Pulmonary effort is normal. Breath sounds: Normal breath sounds. Abdominal: General: Bowel sounds are normal. There is no distension. Palpations: Abdomen is soft. Tenderness: There is no abdominal tenderness. There is no guarding or rebound. Musculoskeletal: General: No swelling. Normal range of motion. Right lower leg: No edema. Left lower leg: No edema. Neurological: Mental Status: She is alert and oriented to person, place, and time. Skin: General: Skin is warm and dry. Psychiatric: Mood and Affect: Mood normal. Behavior: Behavior normal. Vitals and nursing note reviewed. Exam conducted with a running specialist present. Vitals: There is no height or weight on file to calculate BMI. BP: 118/72 Patient's last menstrual period was 11/29/2023. ASSESSMENT & PLAN ICD-10-CM 1. Second trimester Z34.92 POCT urinalysis dipstick manually resulted 2. 26 weeks gestation of Z3A.26 3. Elevated glucose tolerance test R73.09 Glucose tolerance, 3 hours Glucose tolerance, 3 hours Patient presents today for a routine obstetrics appointment. Patient is currently 26w6d with a Estimated Date of Delivery: 09/04/24. Patient given order for 3 hour glucose test due to elevated 1 hour glucose. Patient also aware that she is also anemic and ProFe sent to pharmacy. Patient to return to clinic in 2 weeks. Documented by Kelley Vogt LPN on behalf of: Eva Houston DO documented in this encounter [facility] 05-07-2024 History of Presen t illness Narrative Reason for Appointment: Patient ID: Citlali Muñiz is a 28 y.o. female who presents for Routine Visit Patient presents today for Return OB appointment. MEDICATIONS Current Outpatient Medications Medication Instructions bisacodyl (DULCOLAX) 10 mg, Rectal, Once as needed sertraline (Zoloft) 50 MG tablet sertraline (ZOLOFT) 50 mg, Oral, Daily ALLERGIES No Known Allergies PROBLEMS Active Ambulatory Problems Diagnosis Date Noted No Active Ambulatory Problems Resolved Ambulatory Problems Diagnosis Date Noted No Resolved Ambulatory Problems No Additional Past Medical History HISTORY PAST MEDICAL HISTORY SOCIAL HISTORY No past medical history on file. Social History Tobacco Use Smoking status: Not on file Smokeless tobacco: Not on file Substance Use Topics Alcohol use: Not on file Drug use: Not on file FAMILY HISTORY No family history on file. SURGICAL HISTORY No past surgical history on file. REVIEW OF SYSTEMS Review of Systems: Review of Systems Constitutional: Negative. HENT: Negative. Eyes: Negative. Respiratory: Negative. Cardiovascular: Negative. Gastrointestinal: Negative. Genitourinary: Negative. Musculoskeletal: Negative. Skin: Negative. Neurological: Negative. All other systems reviewed and are negative. Hematological: Negative. Endocrine: Negative. Allergic/Immunologic: Negative. OBJECTIVE Objective: Physical Exam Constitutional: Appearance: Normal appearance. She is well-developed and normal weight. HENT: Head: Normocephalic. Cardiovascular: Rate and Rhythm: Normal rate and regular rhythm. Pulses: Normal pulses. Pulmonary: Effort: Pulmonary effort is normal. Breath sounds: Normal breath sounds. Abdominal: General: Bowel sounds are normal. There is no distension. Palpations: Abdomen is soft. Tenderness: There is no abdominal tenderness. There is no guarding or rebound. Musculoskeletal: General: No swelling. Normal range of motion. Right lower leg: No edema. Left lower leg: No edema. Neurological: General: No focal deficit present. Mental Status: She is alert and oriented to person, place, and time. Skin: General: Skin is warm and dry. Psychiatric: Mood and Affect: Mood normal. Behavior: Behavior normal. Thought Content: Thought content normal. Judgment: Judgment normal. Vitals and nursing note reviewed. Exam conducted with a running specialist present. Vitals: There is no height or weight on file to calculate BMI. BP: Patient's last menstrual period was 11/29/2023. ASSESSMENT & PLAN ICD-10-CM 1. 22 weeks gestation of Z3A.22 POCT urinalysis dipstick manually resulted 2. Second trimester Z34.92 POCT urinalysis dipstick manually resulted 3. Diabetes mellitus screening Z13.1 CBC Glucose tolerance, 1 hour Return OB: Patient presents today for a routine obstetrics appointment. Patient is currently 22w6d . Patient states she is doing well but has complaints of being tired due to current . Patient has verbalizes frequent movement. labor precautions was discussed/given and patient was instructed to perform kick counts three times a day. Orders Placed This Encounter Procedures CBC Glucose tolerance, 1 hour POCT urinalysis dipstick manually resulted Follow Up: Patient is to return to office in 2 week for routine OB appointment. Documented by Stacie Woodard LPN on behalf of: DILAN Mcadams documented in this encounter [facility] 04-09-2024 History of Presen t illness Narrative Reason for Appointment: Patient ID: Citlali Muñiz is a 28 y.o. female who presents for Routine Visit Patient presents today for Annual Exam. and Return OB appointment. MEDICATIONS Current Outpatient Medications Medication Instructions bisacodyl (DULCOLAX) 10 mg, Rectal, Once as needed sertraline (Zoloft) 50 MG tablet sertraline (ZOLOFT) 50 mg, Oral, Daily ALLERGIES No Known Allergies PROBLEMS Active Ambulatory Problems Diagnosis Date Noted No Active Ambulatory Problems Resolved Ambulatory Problems Diagnosis Date Noted No Resolved Ambulatory Problems No Additional Past Medical History HISTORY PAST MEDICAL HISTORY SOCIAL HISTORY No past medical history on file. Social History Tobacco Use Smoking status: Not on file Smokeless tobacco: Not on file Substance Use Topics Alcohol use: Not on file Drug use: Not on file FAMILY HISTORY No family history on file. SURGICAL HISTORY No past surgical history on file. REVIEW OF SYSTEMS Review of Systems: Review of Systems All other systems reviewed and are negative. OBJECTIVE Objective: Physical Exam Constitutional: Appearance: Normal appearance. She is well-developed. Genitourinary: Vulva normal. Breasts: Breasts are soft. Right: Normal. Left: Normal. Cardiovascular: Rate and Rhythm: Normal rate and regular rhythm. Pulmonary: Effort: Pulmonary effort is normal. Breath sounds: Normal breath sounds. Abdominal: General: Bowel sounds are normal. There is no distension. Palpations: Abdomen is soft. Tenderness: There is no abdominal tenderness. There is no guarding or rebound. Musculoskeletal: General: No swelling. Normal range of motion. Right lower leg: No edema. Left lower leg: No edema. Neurological: Mental Status: She is alert and oriented to person, place, and time. Skin: General: Skin is warm and dry. Psychiatric: Mood and Affect: Mood normal. Behavior: Behavior normal. Vitals and nursing note reviewed. Exam conducted with a running specialist present. Vitals: There is no height or weight on file to calculate BMI. BP: 120/72 Patient's last menstrual period was 11/29/2023. ASSESSMENT & PLAN ICD-10-CM 1. Well woman exam with routine gynecological exam Z01.419 Pap Smear 2. Exposure to STD Z20.2 SURESWAB(R) ADVANCED VAGINITIS PLUS, TMA CHLAMYDIA TRACHOMATIS (GENITO/STI) Neisseria gonorrhea DNA probe, direct 3. Second trimester Z34.92 POCT urinalysis dipstick manually resulted 4. Need for maternal serum alpha-protein (MSAFP) screening Z36.1 Alpha fetoprotein, maternal Alpha fetoprotein, maternal 5. Screening, , for anatomic survey Z36.89 US OB ANATOMY SINGLE W US OB CERVICAL LENGTH Return OB/Annual Exam: Patient presents today for an annual exam/routine obstetrics appointment. Patient is currently 18w6d . Patient is doing well and states she has no complaints. Pap/cultures was obtained without difficulty and patient was given msAFP order to have obtained. Patient voiced that she is a little tachy and has been worked up for this in the past and her new normal is around 105-115 . Orders Placed This Encounter Procedures US OB ANATOMY SINGLE W US OB CERVICAL LENGTH CHLAMYDIA TRACHOMATIS (GENITO/STI) Neisseria gonorrhea DNA probe, direct Alpha fetoprotein, maternal POCT urinalysis dipstick manually resulted Follow Up: Patient is to return to our office in 4 weeks for routine OB appointment Documented by Kelley Vogt LPN on behalf of: Eva Houston DO documented in this encounter [facility] 03-27-2023 History of Presen t illness Narrative [...] Screening for cervical cancer Pap collected - [facility]-BIRTH ATTENDANT, LIQUID BASED 3. Encounter for surveillance of contraceptive pills Doing well tri-cycling. No contraindicating dx. I will send in new script with refills to pharmacy of patient's choice. Patient advised to contact the office with any concerns. Patient voiced understanding of all instructions. Return in about 1 year (around 03/27/2024) for Annual with Noni lew. Thank you. . documented in this encounter [facility] 03-19-2022 History of Presen t illness [...] Pap w/ HPV rfx ASCUS ordered. - [facility] CYTOLOGY-BIRTH ATTENDANT, LIQUID BASED 2. Initiation of oral contraception - norgestimate-ethinyl estradiol 0.25-35 MG-MCG tablet; Take 1 tablet by mouth daily. Dispense: 84 tablet; Refill: 3 Return in about 1 year (around 03/19/2023) for Annual wellness. documented in this encounter [facility] 03-17-2021 History of Presen t illness [...] Social Gatherings with Friends and Family: Attends Shinto Services: Active Member of Clubs or Organizations: [...] Pap w/ HPV rfx ASCUS ordered. - [facility] CYTOLOGY-BIRTH ATTENDANT, LIQUID BASED 2. Encounter for surveillance of contraceptive pills - levonorgestrel-ethinyl estradiol (Quasense) 0.15-0.03 MG tablet; Take one tablet by mouth daily. Dispense: 91 tablet; Refill: 3 Return in about 1 year (around 03/17/2022) for Annual wellness. documented in this encounter [facility] 02-01-2021 History of Presen t illness Narrative Citlali Blancas comes in today with the following concerns: Chief Complaint Patient presents with Dizziness 2 week f/u Pt notes that starting after her last period 12/06/2020. She has had to trial multiple forms/brands of OCP's because of heavy periods/menorrhagia and recalls of OCP's. 2 weeks ago she was feeling great, and had another episode of fainting while shopping at [employer]. She has a hx of iron deficiency, she has not been taking iron regularly, so she restarted this for one week. She notes that she was feeling pretty good again. She felt that she was tired all of the time, had another episode while at latter-day Saturday01/15/21. She has a high resting heart [...] Social Gatherings with Friends and Family: Attends Shinto Services: Active Member of Clubs or Organizations: [...] will obtain stress echo with hx of KAVITHA this past year. She will start Zoloft [...] Assessment: Physical Exam documented in this encounter [facility] 01-17-2021 History of Presen t illness Narrative Citlali Blancas comes in today with the following concerns: Chief Complaint Patient presents with Rapid Heart Rate Pt notes that starting after her last period 12/06/2020. She has had to trial multiple forms/brands of OCP's because of heavy periods/menorrhagia and recalls of OCP's. 2 weeks ago she was feeling great, and had another episode of fainting while shopping at [employer]. She has a hx of iron deficiency, she has not been taking iron regularly, so she restarted this for one week. She notes that she was feeling pretty good again. She felt that she was tired all of the time, had another episode while at latter-day Saturday01/15/21. She has a high resting heart [...] Social Gatherings with Friends and Family: Attends Shinto Services: Active Member of Clubs or Organizations: [...] Assessment: Physical Exam documented in this encounter [facility] 01-17-2021 Miscellaneous Notes Addended by: MAKAYLA KILGORE on: 01/17/2021 03:15 PM Modules accepted: Orders documented in this encounter [facility] Evaluation note Diagnosis Lightheadedness- Primary Dizziness [...] blood [facility] (chronic) [facility] Lightheadedness Dizziness and giddiness [facility] Diagnosis Murmur- Primary Undiagnosed cardiac murmurs History of COVID-19 Abnormal EKG Nonspecific abnormal electrocardiogram (ECG) (EKG) Generalized anxiety disorder Fluid level behind tympanic membrane of both ears Leukocytosis, unspecified type documented in [facility] Diagnosis Murmur Undiagnosed cardiac murmurs History of COVID-19 Abnormal EKG Nonspecific abnormal electrocardiogram (ECG) (EKG) documented in [facility] Diagnosis Encounter for gynecological examination without abnormal finding- Primary Routine gynecological examination Encounter for surveillance of contraceptive pills Surveillance of previously prescribed contraceptive pill documented [facility] Diagnosis Encounter for gynecological examination without abnormal finding- Primary Routine gynecological examination Initiation of oral contraception documented [facility] Diagnosis Encounter for gynecological examination without abnormal finding- Primary Routine gynecological examination Screening for cervical cancer Screening for malignant neoplasm of the cervix Encounter for surveillance of contraceptive pills Surveillance of previously prescribed contraceptive pill documented [facility]* Diagnosis 22 weeks gestation of Second trimester state, incidental Diabetes mellitus screening Screening for diabetes mellitus documented in this encounter [facility]* Diagnosis Second trimester state, incidental 26 weeks gestation of Elevated glucose tolerance test Impaired glucose tolerance test Antepartum anemia documented in this encounter [facility]* Diagnosis Third trimester state, incidental 28 weeks gestation of Anemia during in third trimester Gestational diabetes mellitus (GDM), antepartum, gestational diabetes method of control unspecified Elevated glucose tolerance test Impaired glucose tolerance test documented in this encounter [facility]* Diagnosis Third trimester state, incidental 31 weeks gestation of Anemia during in third trimester documented in this encounter [facility]* Diagnosis Well woman exam with routine gynecological exam Routine gynecological examination Exposure to STD Second trimester state, incidental Need for maternal serum alpha-protein (MSAFP) screening Screening, , for anatomic survey Encounter for anatomic survey documented in this encounter [facility] Summary Purpose Family History No Family History Records FoundNo Family History Records FoundNo Family History Records FoundNo Family History Records Found Advance Directives No Advanced Directives Records FoundNo Advanced Directives Records FoundNo Advanced Directives Records FoundNo Advanced Directives Records Found History of Present Illness * Lola Kirby, INSPECTOR WATCH TRAIN-RN CIRCULATING - 03/15/2020 9:30 AM EDT History of [...] file Gets together: Not on file Attends gnosticist service: Not on file Active member of [...] w/ HPV rfx ASCUS ordered - [facility]-BIRTH ATTENDANT, LIQUID BASED; Future 2. Encounter for surveillance [...] file Gets together: Not on file Attends gnosticist service: Not on file Active member of [...] w/ HPV rfx ASCUS ordered - [facility]-BIRTH ATTENDANT, LIQUID BASED; Future 2. Encounter for surveillance [...] Diagnoses Lightheadedness Procedures ECG Gerardo Doan MD [address] [place] [address] Status Reason Specialty Diagnoses / Procedures Referred By Contact Referred To Contact Auth Not Needed Cardiovascular Medicine Diagnoses Murmur History of COVID-19 Abnormal EKG Procedures ECHOCARDIOGRAM TREADMILL STRESS TEST ID ECHO TTHRC R-T 2D W/WO M-MODE REST&STRS CONT ECG ID DOPPLER ECHO HEART,LIMITED,F/ U ID DOPPLER COLOR FLOW VELOCITY MAP Gerardo Doan MD [address] [place] [address] [facility] Echocardiograp hy [address] [place] [address] Status Reason Specialty Diagnoses / Procedures Referred By Contact Referred To Contact Closed Cardiovascular Medicine Diagnoses Murmur History of COVID-19 Abnormal EKG Procedures ECHOCARDIOGRAM TREADMILL STRESS TEST ID ECHO TTHRC R-T 2D W/WO M-MODE REST&STRS CONT ECG ID DOPPLER ECHO HEART,LIMITED,F/U ID DOPPLER COLOR FLOW VELOCITY MAP Gerardo Doan MD [address] [place] [address] [facility] Echocardiograph y [address] [facility] [address] Additional Source Comments INFORMATION SOURCE (unrecogn ized section and content) DATE CREATED AUTHOR 01/22/2018 [facility] DATE CREATED AUTHOR AUTHOR'S ORGANIZ ATION 05/27/2018 [facility] DATE CREATED AUTHOR AUTHOR'S ORGANIZ ATION 06/21/2024 [facility] DATE CREATED AUTHOR AUTHOR'S ORGANIZ ATION 06/21/2024 [facility] EPIC Reason for Visit (unrecogniz ed section and content) Reason Comments Annual Exam Pap 03/11/19 wnl Reason Comments Annual Exam Pap 02/18/18 wnl Want s to discuss ocp Reason Comments Rapid Heart Rate Status Reason Specialty Diagnoses / Procedures Referred By Contact Referred To Contact New Request Diagnoses Lightheadedness Procedures ECG Gerardo Doan MD [address] [place] [address] Reason Comments Dizziness 2 week f/u Status Reason Specialty Diagnoses / Procedures Referred By Contact Referred To Contact Closed Cardiovascular Medicine Diagnoses Murmur History of COVID-19 Abnormal EKG Procedures ECHOCARDIOGRAM TREADMILL STRESS TEST ID ECHO TTHRC R-T 2D W/WO M-MODE REST&STRS CONT ECG ID DOPPLER ECHO HEART,LIMITED,F/U ID DOPPLER COLOR FLOW VELOCITY MAP Gerardo Doan MD [address] [place] [address] [facility] Echocardiograph y [address] [place] [place] [address] Reason Comments Annual Exam Pap 03/15/20 NILM [...] family hx of breast or colon cancer Reason Comments Routine Visit Reason Comments Routine Visit Care Teams (unrecognized sec tion and content) Rough Rounder Relationship Specialty Start Date End Date Gerardo Doan MD PCP - General Family Medicine 12/21/16 Rough Rounder Relationship Specialty Start Date End Date Gerardo Doan MD PCP - General Family Medicine 12/21/16 Rough Rounder Relationship Specialty Start Date End Date Gerardo [...] BE BASED ON THE PRIMARY CLINICAL RECORDS. [facility]. provides no warranty or guarantee of the accuracy or completeness of information in this document.
== END 2024-07-16 09:46 | disposition home or self-care (01) ==
LOC: NOMS 09:45
PROVIDERS: Visit Provider Obstetrics & Gynecology
DX: O99.013 Anemia complicating pregnancy, third trimester (principal); O24.419 Gestational diabetes mellitus in pregnancy, unspecified control; Z3A.32 32 weeks gestation of pregnancy
CPT/HCPCS: 76816

== ENCOUNTER 2024-07-23 07:43 | Outpatient (RCR) | payer OTHER, SELFPAY ==
[2024-07-23 12:39] VITALS: BP 127/80; PULSE 132; TEMP 36.8; O2SAT 99
[2024-07-23] MEDS: FERRIC CARBOXYMALTOSE 750 MG in 0.9 % SODIUM CHLORIDE 250 ML 795 MG IV (13:10)
== END 2024-07-24 12:35 | disposition home or self-care (01) ==
LOC: INF 07:43
PROVIDERS: Visit Provider Obstetrics & Gynecology
DX: D50.9 Iron deficiency anemia, unspecified (principal)
CPT/HCPCS: 96365; J1439

== ENCOUNTER 2024-07-30 07:32 | Outpatient (RCR) | payer OTHER, SELFPAY ==
[2024-07-30 12:17] VITALS: BP 131/75; PULSE 101; TEMP 37.1; O2SAT 99
[2024-07-30] MEDS: FERRIC CARBOXYMALTOSE 750 MG in 0.9 % SODIUM CHLORIDE 250 ML 795 MG IV (12:45)
== END 2024-08-28 23:59 | disposition home or self-care (01) ==
LOC: INF 07:32
PROVIDERS: Visit Provider Obstetrics & Gynecology
DX: O99.019 Anemia complicating pregnancy, unspecified trimester (principal); D50.9 Iron deficiency anemia, unspecified; Z3A.00 Weeks of gestation of pregnancy not specified
CPT/HCPCS: 96365; J1439

== ENCOUNTER 2024-08-06 06:55 | Outpatient (REF) | payer OTHER, SELFPAY ==
--- OUTSIDE RECORDS SUMMARY | 2024-08-07 06:58 | XMS_ITS | CCD ---
Author Organization [facility] Care Team Providers Care Executive Services Administrator Name Role Phone LOLA KIRBY Unavailable Unavailable [...] Unavailable Unavailable Gerardo Doan Primary Care Provider Colton Doanah Primary Care Provider Jessenia Cohasset Primary Care Provider Jessenia MIRANDA [place] Primary Care Provider Jessenia MIRANDA [place] Primary Care Provider Unavailable Primary Care Provider Unavailabl e CELSO, EVA Referring Unavailable COLTON DOANAH Primary Care Unavailable CELSO, EVA Attending Unavailable MEERA, JEANNA Referring Unavailable CELSO, EVA Attending Unavailable CELSO, EVA Attending Unavailable CELSO, EVA Referring Unavailable CELSO, EVA Attending Unavailable MEERA, JEANNA Attending Unavailable CELSO, EVA Attending Unavailable MEERA, JEANNA Attending Unavailable CELSO, EVA Attending Unavailable MEERA, JEANNA Attending Unavailable MEERA, JEANNA Attending Unavailable MEERA, JEANNA Attending Unavailable Medications Current Medications Medication Drug Class(es) Dates Sig (Normalized) Sig (Original) bisacodyl 10 mg rectal suppository (20 sources) Stimulant Laxative Start: 02-13-2024 bisacodyl (Dulcolax) 10 MG suppository Indications: Other constipation Insert 1 suppository (10 mg) into the rectum 1 (one) time if needed for constipation for up to 4 doses 4 suppository 02/13/2024 Active Blood Glucose Monitoring Suppl (D-Care Glucometer) w/Device kit (8 sources) Start: 06-18-2024 End: 06-18-2025 Blood Glucose [...] Start: 03-19-2022 take 1 tablet by sunita once daily norgestimate-ethinyl estradiol 0.25-35 MG-MCG tablet [...] Active isopropyl alcohol 0.7 ml/ml medicated pad (8 sources) Start: 06-18-2024 Alcohol Swabs (Alcohol Prep [...] loss (chronic)] Chronic Diabetes mellitus without complication (17 sources) Abnormal glucose tolerance test; Translations: [Other [...] Onset: 12-21-2016 12-21-2016 Chronic Other complications of (17 sources) Anemia of ; Translations: [Anemia complicating [...] 08-29-2017 Chronic Other and delivery including normal (20 sources) Second trimester ; Translations: [Encounter for supervision of normal , unspecified, second trimester] Onset: 06-04-2024 05-07-2024 Episodic Residual codes; unclassified (2 sources) Gestation period, 22 weeks; Translations: [22 weeks gestation of ] 05-07-2024 Episodic Residual codes; unclassified (13 sources) Gestation period, 26 weeks; Translations: [26 weeks gestation of ] Onset: 06-04-2024 06-04-2024 Episodic Residual codes; unclassified (2 sources) Gestation period, 28 weeks; Translations: [28 weeks gestation of ] 06-18-2024 Episodic Residual codes; unclassified (2 sources) Gestation period, 31 weeks; Translations: [31 weeks gestation of ] 07-02-2024 Episodic Residual codes; unclassified (2 sources) Gestation period, 32 weeks; Translations: [32 weeks gestation of ] 07-16-2024 Episodic Unclassified (16 sources) Encounter for screening for malignant neoplasm of cervix; Translations: [Patient encounter status] Onset: 02-15-2017 Episodic Unclassified (2 sources) Patient encounter status; Translations: [Encounter for gynecological examination without abnormal finding] Unclassified (5 sources) History of COVID-19; Translations: [History of COVID-19] Onset: 02-03-2021 Unclassified (20 sources) OB Reminders Onset: 01-23-2024 01-23-2024 Past [...] Facil ity Urinalysis macro (dipstick) panel (U)on 07-16-2024 Bilirubin, UA Negative Negative - 4(70) +++ mg/dL [facility] Blood, UA Negative Negative - 50 Milo/mcL [facility] Clarity, UA Clear [facility] Color, UA Yellow [facility] Glucose, UA Negative Negative - 2000(110) ++++ mg/dL [facility] Interpretation and review of laboratory results Abnormal [facility] Ketones, UA Positive Negative - 160(16) ++++ mg/dL [facility] Comment on above: trace Leukocytes, UA Positive Negative - 500+++ Sonu/mcL [facility] Comment on above: small Nitrite, UA Negative Negative - Positive [facility] pH, UA 6 5 - 9 [facility] Protein, UA Negative Negative - 1999(20) ++++ mg/dL [facility] Spec Grav, UA 1.02 1 - 1.03 [facility] Urobilinogen, UA 0.2 0.2 - 12 mg/dL [facility] Urinalysis macro (dipstick) panel (U)on 07-02-2024 Bilirubin, UA Negative Negative - 4(70) +++ mg/dL [facility] Blood, UA Negative Negative - 50 Milo/mcL [facility] Clarity, UA Clear [facility] Color, UA Yellow [facility] Glucose, UA Negative Negative - 1999(110) ++++ mg/dL [facility] Interpretation and review of laboratory results Abnormal [facility] Ketones, UA Positive Negative - 160(16) ++++ mg/dL [facility] Leukocytes, UA Many Negative - 500+++ Sonu/mcL [facility] Nitrite, UA Negative Negative - Positive [facility] pH, UA 7 5 - 9 [facility] Protein, UA Negative Negative - 1999(20) ++++ mg/dL [facility] Spec Grav, UA 1.02 1 - 1.03 [facility] Urobilinogen, UA 1.0 0.2 - 12 mg/dL [facility] FAX REQUESTon 06-18-2024 FAX TO [phone] [facility] Comment on above: Result Comment: Test ing performed at [place] [address] Performed By: #### F X #### Testing performed at [facility] [address] [place] [address] GTT 3HR GESTATIONALon 2023 Glucose [Mass/Vol] 57 mg/dL Low 65-140 [facility] Comment on above: Result Comment: Test ing performed at [place] [address] Performed By: #### F X #### Testing performed at [facility] [address] [place] [address] Glucose [Mass/Vol] 140 mg/dL Normal 65-165 [facility] Comment on above: Result Comment: Test ing performed at [place] [address] Performed By: #### F X #### Testing [place] [address] Glucose [Mass/Vol] 210 mg/dL High 65-190 [facility] Comment on above: Result Comment: Test ing performed at [place] [address] Performed By: #### F X #### Testing [place] [address] Glucose [Mass/Vol] 96 mg/dL Normal <100 [facility] Comment on above: Result Comment: Test ing performed at [place] [address] Performed By: #### F X #### [place] [address] Urinalysis macro (dipstick) panel (U)on 06-04-2024 Bilirubin, UA Negative Negative - 4(70) +++ mg/dL [facility] Blood, UA Positive Negative - 50 Milo/mcL [facility] Comment on above: trace Clarity, UA Clear [facility] Color, UA Yellow [facility] Glucose, UA Negative Negative - 1999(110) ++++ mg/dL [facility] Interpretation and review of laboratory results Abnormal [facility] Ketones, UA Negative Negative - 160(16) ++++ mg/dL [facility] Leukocytes, UA Positive Negative - 500+++ Sonu/mcL [facility] Comment on above: small Nitrite, UA Negative Negative - Positive [facility] pH, UA 7 5 - 9 [facility] Protein, UA Negative Negative - 2000(20) ++++ mg/dL [facility] Spec Grav, UA 1.015 1 - 1.03 [facility] Urobilinogen, UA 0.2 0.2 - 12 mg/dL [facility] CBCon 05-28-2024 ABSOLUTE BAS 0.0 10*3/uL Normal 0.0-0.2 [facility] Comment on above: Result Comment: Test ing performed at [place] [address] Performed By: #### F X #### Testing performed at [place] [id number] ABSOLUTE EOS 0.0 10*3/uL Normal 0.0-0.7 [facility] Comment on above: Performed By: #### F X #### Testing performed at [place] [id number] ABSOLUTE NEUTROPHIL COUNT 11.0 10*3/uL High 1.4-6.5 [facility] Comment on above: Performed By: #### F X #### Testing performed at [place] [id number] Basophils/100 WBC (Bld) 0.1 % Normal 0.0-2.0 [facility] Comment on above: Performed By: #### F X #### Testing [place] [address] DTYPE AUTO DIFF Normal [facility] Comment on above: Performed By: #### F X #### Testing performed at [place] [id number] Eosinophils/100 WBC (Bld) 0.2 % Normal 0.0-11.0 [facility] Comment on above: Performed By: #### F X #### [place] [address] Lymphocytes (Bld) [#/Vol] 1.4 10*3/uL Normal 1.2-3.4 [facility] Comment on above: Performed By: #### F X #### Testing performed at [address] [address] Lymphocytes/100 WBC (Bld) 10.8 % Low 20.0-55.0 [facility] Comment on above: Performed By: #### F X #### Testing performed at [place] [id number] Monocytes (Bld) [#/Vol] 0.6 10*3/uL Normal 0.0-0.7 [facility] Comment on above: Performed By: #### F X #### Testing performed at [address] [address] Monocytes/100 WBC (Bld) 4.2 % Normal 0.0-10.0 [facility] Comment on above: Performed By: #### F X #### Testing performed at [address] [address] Neutrophils/100 WBC (Bld) 84.7 % High 37.0-75.0 [facility] Comment on above: Performed By: #### F X #### Testing performed at [address] [address] Erythrocyte distribution width (RBC) [Ratio] 13.3 % Normal 11.5-14.5 [facility] Comment on above: Performed By: #### F X #### Testing performed at [address] [address] Hematocrit (Bld) [Volume fraction] 29.4 % Low 36.0-48.0 [facility] Comment on above: Performed By: #### F X #### Testing performed at [address] [address] Hemoglobin (Bld) [Mass/Vol] 10.0 g/dL Low 12.0-16.0 [facility] Comment on above: Performed By: #### F X #### Testing performed at [address] [address] MCH (RBC) [Entitic mass] 31.4 pg Normal 26.0-35.0 [facility] Comment on above: Performed By: #### F X #### Testing performed at [address] [address] MCHC (RBC) [Mass/Vol] 34.1 g/dL Normal 27.0-37.0 [facility] Comment on above: Performed By: #### F X #### Testing performed at [address] [address] MCV (RBC) [Entitic vol] 92.0 fL Normal 80.0-100.0 [facility] Comment on above: Performed By: #### F X #### [place] [address] Platelet mean volume (Bld) [Entitic vol] 7.2 fL Low 7.4-11.0 [facility] Comment on above: Performed By: #### F X #### Testing [place] [address] Platelets (Bld) [#/Vol] 403 10*3/uL High 130-400 [facility] Comment on above: Performed By: #### F X #### [place] [address] RBC (Bld) [#/Vol] 3.20 10*6/uL Low 4.0-5.4 [facility] Comment on above: Performed By: #### F X #### [place] [address] WBC (Bld) [#/Vol] 13.0 10*3/uL High 3.6-11.0 [facility] Comment on above: Performed By: #### F X #### [place] [address] FAX REQUESTon 05-28-2024 FAX TO [phone] Normal [facility] Comment on above: Result Comment: CONCHITA ECTED ON 05/28 AT 1651: PREVIOUSLY REPORTED [phone] Performed By: #### F X #### [place] [address] GLUCOSE 1 HR PCon 05-28-2024 Glucose [Mass/Vol] 146 mg/dL Normal 65-200 [facility] Comment on above: Result Comment: Test ing performed at [place] [address] Performed By: #### F X #### [place] [address] Urinalysis macro (dipstick) panel (U)on 05-07-2024 Bilirubin, UA Negative Negative - 4(70) +++ mg/dL [facility] Blood, UA Negative Negative - 50 Milo/mcL [facility] Clarity, UA Clear [facility] Color, UA Yellow [facility] Glucose, UA Negative Negative - 1999(110) ++++ mg/dL [facility] Interpretation and review of laboratory results Abnormal [facility] Ketones, UA Negative Negative - 160(16) ++++ mg/dL [facility] Leukocytes, UA Trace Negative - 500+++ Soun/mcL [facility] Nitrite, UA Negative Negative - Positive [facility] pH, UA 7.0 5 - 9 [facility] Protein, UA Negative Negative - 1999(20) ++++ mg/dL [facility] Spec Grav, UA 1.010 1 - 1.03 [facility] Urobilinogen, UA 0.2 0.2 - 12 mg/dL [facility] IGP,APTIMA HPV,AGE GDLNon -2023 AGE GDLN ACOG TESTING Note . [facility] Comment on above: TESTS RESULT FLAG UN ITS REF RANGE LAB Clinician Provided Cytology Information Source.............Cervix No. of containers..01 ThinPrep Vial Age Algo ACOG Viktoria... -25 08 FLAG LEGEND: L-Low Normal,H-High Normal,LL-Alert Low,HH-Alert High <-Panic Low,>-Panic High,A-Abnormal,AA-Critical Abnormal Performed at: 01 =G [address] [address] Kayleen Nielson MD, IGP, RFX APTIMA HPV ASCU Note . [facility] Comment on above: TESTS RESULT FLAG UN ITS REF RANGE LAB DIAGNOSIS: 02 NEGATIVE FOR INTRAEPITHELIAL LESION OR MALIGNANCY. Specimen adequacy: 02 Satisfactory for evaluation. No endocervical component is identified. Performed by: 02 Henok Adames, Battery Engineer ([facility]) . 02 Note: Note 02 The Pap [...] <-Panic Low,>-Panic High,A-Abnormal,AA-Critical Abnormal Performed at: 02 [facility] [address] [place] [address] Kayleen Nielson MD, Performed at: =G - [facility] [address], [place] [id number] Senior Tax Accountant: Kayleen Nielson MD, Phone: [phone] Performed at: [address] [id number] Senior Tax Accountant: Kayleen Nielson MD, Phone: [phone] [facility] URETHRITIS/DISCHARGE PLUS VA GINITIS (HTRX)on 04-10-2024 ATOPOBIUM VAGINAE 0.000 [facility] ATOPOBIUM VAGINAE Not detected [facility] BVAB 2,3 (BACTERIAL VAGINOSIS ASSOCIATED BACTERIA 2, 3); MOBILUNCUS SPP 0.000 [facility] BVAB 2,3 (BACTERIAL VAGINOSIS ASSOCIATED BACTERIA 2, 3); MOBILUNCUS SPP Not detected [facility] OMER ALBICANS, PARAPSILOSIS, TROPICALIS 0.000 [facility] OMER ALBICANS, PARAPSILOSIS, TROPICALIS Not detected [facility] OMER GLABRATA 0.000 [facility] OMER GLABRATA Not detected [facility] OMER KRUSEI 0.000 [facility] OMER KRUSEI Not detected [facility] CHLAMYDIA TRACHOMATIS 0.000 [facility] CHLAMYDIA TRACHOMATIS Not detected [facility] GARDNERELLA VAGINALIS 0.000 [facility] GARDNERELLA VAGINALIS Not detected [facility] MEGASPHAERA (TYPES 1, 2) 0.000 [facility] MEGASPHAERA (TYPES 1, 2) Not detected [facility] MYCOPLASMA GENITALIUM 0.000 [facility] MYCOPLASMA GENITALIUM Not detected [facility] NEISSERIA GONORRHOEAE 0.000 [facility] NEISSERIA GONORRHOEAE Not detected [facility] TRICHOMONAS VAGINALIS 0.000 [facility] TRICHOMONAS VAGINALIS Not detected [facility] Urinalysis macro (dipstick) panel (U)on 04-09-2024 Bilirubin, UA Negative Negative - 4(70) +++ mg/dL [facility] Blood, UA Negative Negative - 50 Milo/mcL [facility] Clarity, UA Cloudy [facility] Color, UA Yellow [facility] Glucose, UA Negative Negative - 2000(110) ++++ mg/dL [facility] Interpretation and review of laboratory results Abnormal [facility] Ketones, UA Negative Negative - 160(16) ++++ mg/dL [facility] Leukocytes, UA Positive Negative - 500+++ Sonu/mcL [facility] Nitrite, UA Negative Negative - Positive [facility] Comment on above: small pH, UA 8.0 5 - 9 [facility] Protein, UA Negative Negative - 1999(20) ++++ mg/dL [facility] Spec Grav, UA 1.020 1 - 1.03 [facility] Urobilinogen, UA 0.2 0.2 - 12 mg/dL [facility] RPRon 02-10-2024 Reagin Ab RPR Ql (S) Non-Reactive Normal NONREACTIVE A [facility] Comment on above: Result Comment: Test ing performed at [place] [address] Performed By: #### R UBL, ACBC, FX, GHIV, ARPR #### [place] [address] RUBELLA SCREENon 02-10-2024 RUBELLA SCREEN Positive Normal POSITIVE [facility] Comment on above: Result Comment: POSI TIVE RESULT INDICATES PRESUMED IMMUNITY Testing performed at [place] [address] Performed By: #### R UBL, ACBC, FX, GHIV, ARPR #### [place] [address] HEP B SURFACE AGon HEP B SURFACE AG Negative Normal NEGATIVE [facility] Comment on above: Performed By: #### F X #### Testing [place] [address] HEP C ABon 02-07-2024 HEP C AB Negative Normal NEGATIVE [facility] Comment on above: Performed By: #### F X #### [place] [address] CBCon 02-06-2024 ABSOLUTE BAS 0.0 10*3/uL Normal 0.0-0.2 [facility] Comment on above: Result Comment: Test ing performed at [place] [address] Performed By: #### R UBL, ACBC, FX, GHIV, ARPR #### [place] [address] ABSOLUTE EOS 0.1 10*3/uL Normal 0.0-0.7 [facility] Comment on above: Performed By: #### R UBL, ACBC, FX, GHIV, ARPR #### Testing performed at [place] [id number] ABSOLUTE NEUTROPHIL COUNT 9.0 10*3/uL High 1.4-6.5 [facility] Comment on above: Performed By: #### R UBL, ACBC, FX, GHIV, ARPR #### Testing performed at [place] [id number] Basophils/100 WBC (Bld) 0.2 % Normal 0.0-2.0 [facility] Comment on above: Performed By: #### R UBL, ACBC, FX, GHIV, ARPR #### [place] [address] DTYPE AUTO DIFF Normal [facility] Comment on above: Performed By: #### R UBL, ACBC, FX, GHIV, ARPR #### Testing performed at [place] [id number] Eosinophils/100 WBC (Bld) 0.6 % Normal 0.0-11.0 [facility] Comment on above: Performed By: #### R UBL, ACBC, FX, GHIV, ARPR #### Testing performed at [place] [id number] Lymphocytes (Bld) [#/Vol] 2.2 10*3/uL Normal 1.2-3.4 [facility] Comment on above: Performed By: #### R UBL, ACBC, FX, GHIV, ARPR #### Testing performed at [place] [id number] Lymphocytes/100 WBC (Bld) 18.4 % Low 20.0-55.0 [facility] Comment on above: Performed By: #### R UBL, ACBC, FX, GHIV, ARPR #### Testing performed at [place] [id number] Monocytes (Bld) [#/Vol] 0.8 10*3/uL High 0.0-0.7 [facility] Comment on above: Performed By: #### R UBL, ACBC, FX, GHIV, ARPR #### Testing performed at [place] [id number] Monocytes/100 WBC (Bld) 6.3 % Normal 0.0-10.0 [facility] Comment on above: Performed By: #### R UBL, ACBC, FX, GHIV, ARPR #### Testing performed at [place] [id number] Neutrophils/100 WBC (Bld) 74.5 % Normal 37.0-75.0 [facility] Comment on above: Performed By: #### R UBL, ACBC, FX, GHIV, ARPR #### [place] [address] Erythrocyte distribution width (RBC) [Ratio] 13.5 % Normal 11.5-14.5 [facility] Comment on above: Performed By: #### R UBL, ACBC, FX, GHIV, ARPR #### Testing performed at [place] [id number] Hematocrit (Bld) [Volume fraction] 36.2 % Normal 36.0-48.0 [facility] Comment on above: Performed By: #### R UBL, ACBC, FX, GHIV, ARPR #### Testing performed at [place] [id number] Hemoglobin (Bld) [Mass/Vol] 12.0 g/dL Normal 12.0-16.0 [facility] Comment on above: Performed By: #### R UBL, ACBC, FX, GHIV, ARPR #### Testing performed at [place] [id number] MCH (RBC) [Entitic mass] 29.6 pg Normal 26.0-35.0 [facility] Comment on above: Performed By: #### R UBL, ACBC, FX, GHIV, ARPR #### [place] [address] MCHC (RBC) [Mass/Vol] 33.0 g/dL Normal 27.0-37.0 [facility] Comment on above: Performed By: #### R UBL, ACBC, FX, GHIV, ARPR #### [place] [address] MCV (RBC) [Entitic vol] 89.7 fL Normal 80.0-100.0 [facility] Comment on above: Performed By: #### R UBL, ACBC, FX, GHIV, ARPR #### [place] [address] Platelet mean volume (Bld) [Entitic vol] 6.9 fL Low 7.4-11.0 [facility] Comment on above: Performed By: #### R UBL, ACBC, FX, GHIV, ARPR #### [place] [address] Platelets (Bld) [#/Vol] 406 10*3/uL High 130-400 [facility] Comment on above: Performed By: #### R UBL, ACBC, FX, GHIV, ARPR #### [place] [address] RBC (Bld) [#/Vol] 4.04 10*6/uL Normal 4.0-5.4 [facility] Comment on above: Performed By: #### R UBL, ACBC, FX, GHIV, ARPR #### [place] [address] WBC (Bld) [#/Vol] 12.1 10*3/uL High 3.6-11.0 [facility] Comment on above: Performed By: #### R UBL, ACBC, FX, GHIV, ARPR #### [place] [address] FAX REQUESTon 02-06-2024 FAX TO [phone] Normal [facility] Comment on above: Result Comment: Test ing performed at [place] [address] Performed By: #### F X #### [place] [address] FAX TO [phone] [facility] Comment on above: Result Comment: Test ing performed at [place] [address] Performed By: #### F X #### [place] [address] FAX TO [phone] [facility] Comment on above: Result Comment: Test ing performed at [place] [address] Performed By: #### F X #### [place] [address] FAX TO [phone] [facility] Comment on above: Result Comment: Test ing performed at [place] [address] Performed By: #### F X, HA1CT #### [place] [address] FAX TO [phone] [facility] Comment on above: Result Comment: Test ing performed at [place] [address] Performed By: #### R UBL, ACBC, FX, GHIV, ARPR #### [place] [address] HEMOGLOBIN A1Con 02-06-2024 Glucose [Mass/Vol] 100 mg/dL Normal [facility] Comment on above: Result Comment: Test ing performed at [place] [address] Performed By: #### F X, HA1CT #### [place] [address] HbA1c (Bld) [Mass fraction] 5.1 % Normal 0-6 [facility] Comment on above: Result Comment: NORMAL <5.7% PREDIABETES 5.7-6.4% DIABETES 6.5% OR HIGHER Performed By: #### F X, HA1CT #### [place] [address] HIV 1,2 ABon 07-11-2024 HIV 1,2 Non-Reactive Normal NONREACTIVE [facility] Comment on above: Result Comment: Test ing performed at [place] [address] Performed By: #### R UBL, ACBC, FX, GHIV, ARPR #### [place] [address] TYPE AND SCREEN CROSSMATCH C ONVERTIBLEon 02-06-2024 TYPE AND SCREEN CROSSMATCH CONVERTIBLE WORKUP EXPIRES 02/09/2024,2359 ABO/RH(D) O POSITIVE ANTIBODY SCREEN NEGATIVE ARM BAND NUMBER [id number] Testing performed at [place] [address] Normal [facility] Comment on above: Performed By: #### T SCC #### [place] [address] URINE CULTUREon 02-06-2024 Bacteria identified Cx Nom (U) SPECIMEN DESCRIPTION URINE CLEAN CATCH CULTURE NO PATHOGENS ISOLATED * Result Note: Testing performed at [place] [address] * REPORT STATUS 02/08/2024 * Result Note: FINAL * Normal [facility] Comment on above: Performed By: #### A URNC #### [place] [address] ECHOCARDIOGRAM TREADMILL STR ESS TESTOrdered By: Gerardo [...] were monitored. An Echocardiogram was performed by machine maintenance technician in four stages in quad fashion. At peak stress, four selected images were obtained and placed side by side with resting images for comparison. Stress Test Details Test: Exercise stress testing was performed using a Rodger protocol. HR Resting HR: 109 bpm Max Heart Rate (APMHR): 194.542258 bpm Max HR Achieved: 200 bpm Target HR (85% APMHR): 164.459847 bpm % of APMHR: 103.09 Recovery HR: [...] 13.70 METs Scale: Active Angina Score: None [employer] User, Interfaces - 02/18/2021 12:14 AM EDT [...] were monitored. An Echocardiogram was performed by machine maintenance technician in four stages in quad fashion. At peak stress, four selected images were obtained and placed side by side with resting images for comparison. Stress Test Details Test: Exercise stress testing was performed using a Rodger protocol. HR Resting HR: 109 bpmMax Heart Rate (APMHR): 194.239157 bpm Max HR Achieved: 200 bpmTarget HR (85% APMHR): 164.241348 bpm % of APMHR: 103.09 Recovery HR: [...] 13.70 METs Scale: Active Angina Score: None [employer] ECGOrdered By: Gerardo Doan on 01-27-2021 [employer] B12 & FOLATEOrdered By: Yessy Doan on 01-17-2021 Cobalamin (Vitamin B12) [Mass/Vol] 383 pg/mL 239 - 931 PG/ML [facility] Folate [Mass/Vol] 19.7 ng/mL [facility] Comment on above: Testing performed at [place], [place] [address] [facility] CBC, EDIF, PLATELETOrdered B y: Gerardo Doan on 01-17-2021 ABSOLUTE BASOPHIL COUNT 0.1 10*3/uL 0.0 - 0.2 10*3/uL [facility] Comment on above: Testing performed at [place] [id number] Basophils/100 WBC (Bld) 0.4 % 0.0 - 2.0 % [facility] Differential cell count method Nom (Bld) AUTO DIFF % [facility] Eosinophils (Bld) [#/Vol] 0.10 10*3/uL 0.0 - 0.7 10*3/uL [facility] Eosinophils/100 WBC (Bld) 0.6 % 0.0 - 11.0 % [facility] Erythrocyte distribution width (RBC) [Ratio] 13.2 % 11.5 - 14.5 % [facility] Hematocrit (Bld) [Volume fraction] 39.3 % 36.0 - 48.0 % [facility] Hemoglobin (Bld) [Mass/Vol] 13.6 g/dL [facility] Interpretation and review of laboratory results Abnormal [facility] Lymphocytes (Bld) [#/Vol] 1.90 10*3/uL 1.2 - 3.4 10*3/uL [facility] Lymphocytes/100 WBC (Bld) 13.6 % Low 20.0 - 55.0 % [facility] MCH (RBC) [Entitic mass] 31.1 pg 26.0 - 35.0 PG [facility] MCHC (RBC) [Mass/Vol] 34.7 g/dL [facility] MCV (RBC) [Entitic vol] 89.6 fL [facility] Monocytes (Bld) [#/Vol] 0.5 10*3/uL 0.0 - 0.7 10*3/uL [facility] Monocytes/100 WBC (Bld) 3.5 % 0.0 - 10.0 % [facility] Neutrophils (Bld) [#/Vol] 11.3 10*3/uL High 1.4 - 6.5 10*3/uL [facility] Neutrophils/100 WBC (Bld) 81.9 % High 37.0 - 75.0 % [facility] Platelet mean volume (Bld) [Entitic vol] 7.6 fL [facility] Platelets (Bld) [#/Vol] 483 10*3/uL High 130.0 - 400.0 10*3/uL [facility] RBC (Bld) [#/Vol] 4.38 10*6/uL 4.0 - 5.4 10*6/uL [facility] WBC (Bld) [#/Vol] 13.8 10*3/uL High 3.6 - 11.0 10*3/uL [facility] COMPREHENSIVE METABOLIC PANE LOrdered By: Gerardo Doan on 01-17-2021 Albumin [Mass/Vol] 4.6 G/dl 3.5 - 5.0 G/dl [facility] Albumin/Globulin [Mass ratio] 1.4 {ratio} [facility] ALP [Catalytic activity/Vol] 57 U/L [facility] ALT [Catalytic activity/Vol] 18 U/L <35 IU/L [facility] AST [Catalytic activity/Vol] 21 U/L [facility] Bilirubin [Mass/Vol] 0.4 mg/dL [facility] Calcium [Mass/Vol] 10.3 mg/dL High [facility] Chloride [Moles/Vol] 106 mmol/L [facility] Comment on above: Please note: Triglyc eride levels of 600mg/dL or higher may positively bias chloride results by approximately 2.1 mmol CO2 [Moles/Vol] 21 mmol/L Low [facility] Creatinine [Mass/Vol] 0.50 mg/dL Low [facility] GFR COMMENT Average GFR for 20-2 9 years old = 116. [facility] Comment on above: Chronic Kidney disea se, GFR = <60. Kidney failure, GFR = <15. The GFR estimate is not adjusted for extreme body surface area or acute process, nor has it been validated for women or ethnic groups other than and . Testing performed at [place] [address] GFR/1.73 sq M.predicted among blacks MDRD (S/P/Bld) [Vol rate/Area] mL/min/{1.73_m2} ml/min/1.73sq.m [facility] GFR/1.73 sq M.predicted among non-blacks MDRD (S/P/Bld) [Vol rate/Area] mL/min/{1.73_m2} ml/min/1.73sq.m [facility] Glucose post fast [Mass/Vol] 105 mg/dL High [facility] Comment on above: NORMAL <100 mg/dL PREDIABETES 101-126 mg/dL DIABETES 126 mg/dL or higher Interpretation and review of laboratory results Abnormal [facility] Potassium [Moles/Vol] 4.1 mmol/L [facility] Protein [Mass/Vol] 8.0 g/dL [facility] Sodium [Moles/Vol] 138 mmol/L [facility] Urea nitrogen [Mass/Vol] 8 mg/dL [facility] HEMOGLOBIN [id number] By: Sa edi Doan on 01-17-2021 Glucose [Mass/Vol] 100 mg/dL [facility] Comment on above: Testing performed at [place] [address] HbA1c (Bld) [Mass fraction] 5.1 % 0 - 6 % [facility] Comment on above: NORMAL <5.7% PREDIABETES 5.7-6.4% DIABETES 6.5% OR HIGHER [facility] IRON/IRON BINDING/TRANSFERRI NOrdered By: Gerardo Doan on 01-17-2021 Interpretation and review of laboratory results Abnormal [facility] Iron [Mass/Vol] 145 ug/dL [facility] Iron binding capacity [Mass/Vol] 505 High [facility] Iron saturation [Mass fraction] 29 % [facility] Comment on above: Testing performed at [address] TSHOrdered By: Gerardo Doan on 01-17-2021 TSH Qn 1.420 m[IU]/L [facility] Comment on above: Testing performed at [address] PROGRESSon 04-25-2018 [facility] NOTES Normal [facility] PROGRESSon 02-19-2018 [facility] NOTES Normal [facility] PROGRESSon 02-13-2018 [facility] NOTES Normal [facility] PAP, ThinPrep, rfx HPV ASCUS on 02-15-2017 Comment [facility] Comment on above: Result Comment: IGLB P CPT CODE AUTOMATION: (NOTE)IGLBP CPT CODE AUTOMATION: This liquid based ThinPrep(R) pap test was screenedwith theIGLBP CPT CODE AUTOMATION: use of an image guided system. Performed By: #### L PRAS ####[facility]ology [id number] [place] [address] Lab Director: Dr. Lauro Merino, Diagnosis [facility] Comment on above: Result Comment: Comm ent(NOTE)NEGATIVE FOR INTRAEPITHELIAL LESION AND MALIGNANCY.CELLULAR CHANGES ASSOCIATED WITH INFLAMMATION ARE PRESENT.THIS SPECIMEN WAS RESCREENED PART OF OUR BOX TOE CEMENTER PROGRAM. Performed By: #### L PRAS ####[facility]ology [id number] [place] [address] lab Director: Dr. Lauro Merino DO IGLBP CPT COde Comment [facility] Comment on above: Performed By: #### L PRAS ####[facility]ology [id number] [place] [address] lab Director: Dr. Lauro Merino, Note [facility] Comment on above: Result Comment: Comm ent(NOTE)The Pap smear is a screening test designed to aid in the detection ofpremalignant and malignant conditions of the uterine cervix. It isnot a diagnostic procedure and should not be used as the sole meansof detecting cervical cancer. Both false-positive and false-negativereports do occur. Performed By: #### L PRAS ####[facility]ology [id number] [place] [address] lab Director: Dr. Lauro Merino DO Performed By Comment Kareen Lucero, Battery Engineer [facility] Comment on above: Performed By: #### L PRAS ####[facility]ology [address] [place] [address] Lab Director: Dr. Lauro Merino DO Performed By [facility] Comment on above: Performed By: #### L PRAS ####[facility]ology [address] [place] [address] Lab Director: Dr. Lauro Merino DO QC Reviewed By Comment Dedra Yip , Supervisory Battery Engineer (ASCP) [facility] Comment on above: Performed By: #### L PRAS ####[facility]ology [id number] [place] [address] Lab Director: Dr. Lauro Merino DO Spec Adequacy [facility] Comment on above: Result Comment: Comm ent(NOTE)Satisfactory for evaluation. Endocervical and/or squamous metaplasticcells (endocervical component) are present. Performed By: #### L PRAS ####[facility]ology [address] [place] [address] Lab Director: Dr. Lauro Merino DO Specimen # [id number] [facility] Comment on above: Performed By: #### L PRAS ####[facility]ology [id number] [place] [address] Lab Director: Dr. Lauro Merino DO . [facility] Comment on above: Result Comment: Comm ent(NOTE)The HPV DNA reflex criteria were not met with this specimen resulttherefore, no HPV testing was performed.No. of containers..01 CYTYC Th[facility] AT [facility] Performed By: #### L PRAS ####[facility]ology [address] [place] [address] Lab Director: Dr. Lauro Merino DO . . [facility] Comment on above: Performed By: #### L PRAS ####[facility] Pathology [address] [place] [address] [facility] Director: Dr. Lauro Merino, DO Vital Signs Date Time Vital Sign Value Performing Clinician Facility 07-16-2024 11:01-0500 Body weight 75.75 kg Jeanna Estes PA Work Phone: [facility] 07-16-2024 11:01-0500 Diastolic blood pressure 72 mm[Hg] Jeanna Meera PA Work Phone: [facility] 07-16-2024 11:01-0500 Systolic blood pressure 116 mm[Hg] Jeanna Meera PA Work Phone: [facility] 07-02-2024 10:02-0500 Body weight 75.93 kg Jeanna Meera PA Work Phone: [facility] 07-02-2024 10:02-0500 Diastolic blood pressure 70 mm[Hg] Jeanna Meera PA Work Phone: [facility] 07-02-2024 10:02-0500 Systolic blood pressure 112 mm[Hg] Jeanna Meera PA Work Phone: [facility] 06-18-2024 15:14-0500 Body weight 76.11 kg Jeanna Brandeis PA Work Phone: [facility] 06-18-2024 15:14-0500 Diastolic blood pressure 76 mm[Hg] Jeanna Brandeis PA Work Phone: [facility] 06-18-2024 15:14-0500 Systolic blood pressure 114 mm[Hg] Jeanna Meera PA Work Phone: [facility] 06-04-2024 11:00-0500 Body weight 75.3 kg Eva Celso DO Work Phone: [facility] 06-04-2024 11:00-0500 Diastolic blood pressure 72 mm[Hg] Eva Celso DO Work Phone: [facility] 06-04-2024 11:00-0500 Systolic blood pressure 118 mm[Hg] Eva Celso DO Work Phone: [facility] 05-07-2024 10:50-0400 Body weight 76.11 kg Jeanna Meera PA Work Phone: [facility] 05-07-2024 10:50-0400 Diastolic blood pressure 70 mm[Hg] Jeanna KONG Work Phone: [facility] 05-07-2024 10:50-0400 Systolic blood pressure 120 mm[Hg] Jeanna KONG Work Phone: [facility] 04-09-2024 09:14-0400 Body weight 73.94 kg Eva Celso DO Work Phone: [facility] 04-09-2024 09:14-0400 Diastolic blood pressure 72 mm[Hg] Eva Celso DO Work Phone: [facility] 04-09-2024 09:14-0400 Systolic blood pressure 120 mm[Hg] Eva Celso DO Work Phone: [facility] 03-27-2023 09:16-0400 Body height 157.5 cm Ami Hay [employer]OTH WEAVER[employer]SIMULATION SOFTWARE ENGINEER Work Phone: [facility] 03-27-2023 09:16-0400 Body mass index (BMI) [Ratio] 29.26 kg/m2 Ami Hay [employer]OTH WEAVER[employer]SIMULATION SOFTWARE ENGINEER Work Phone: [facility] 03-27-2023 09:16-0400 Body weight 72.58 kg Ami Hay [employer]OTH WEAVER[employer]SIMULATION SOFTWARE ENGINEER Work Phone: [facility] 03-27-2023 09:16-0400 Diastolic blood pressure 64 mm[Hg] Ami Hay [employer]OTH WE[employer]ER[employer]SIMULATION SOFTWARE ENGINEER Work Phone: [facility] 03-27-2023 09:16-0400 Systolic blood pressure 110 mm[Hg] Ami Hay [employer]OTH WEAVER[employer]SIMULATION SOFTWARE ENGINEER Work Phone: [facility] 03-19-2022 10:05-0400 Body height 157.5 cm Lola Kirby [employer]OTH WEAVER[employer]SIMULATION SOFTWARE ENGINEER Work Phone: [facility] 03-19-2022 10:05-0400 Body mass index (BMI) [Ratio] 30.91 kg/m2 Lola Kirby [employer]OTH WEAVER[employer]SIMULATION SOFTWARE ENGINEER Work Phone: [facility] 03-19-2022 10:05-0400 Body weight 76.66 kg Lola Kirby [employer]OTH WEAVER[employer]SIMULATION SOFTWARE ENGINEER Work Phone: [facility] 03-19-2022 10:05-0400 Diastolic blood pressure 66 mm[Hg] Lola Kirby [employer]OTH WEAVER[employer]SIMULATION SOFTWARE ENGINEER Work Phone: [facility] 03-19-2022 10:05-0400 Systolic blood pressure 122 mm[Hg] Lola Kirby [employer]OTH WEAVER[employer]SIMULATION SOFTWARE ENGINEER Work Phone: [facility] 03-17-2021 13:57-0400 Body height 157.5 cm Lola Kirby [employer]OTH WEAVER[employer]SIMULATION SOFTWARE ENGINEER Work Phone: [facility] 03-17-2021 13:57-0400 Body mass index (BMI) [Ratio] 28.9 kg/m2 Lola Kirby [employer]OTH WE[employer]ER[employer]SIMULATION SOFTWARE ENGINEER Work Phone: [facility] 03-17-2021 13:57-0400 Body weight 71.67 kg Lola Kirby [employer]OTH WE[employer]ER[employer]SIMULATION SOFTWARE ENGINEER Work Phone: [facility] 03-17-2021 13:57-0400 Diastolic blood pressure 76 mm[Hg] Lola Kirby [employer]OTH WEAVER[employer]SIMULATION SOFTWARE ENGINEER Work Phone: [facility] 03-17-2021 13:57-0400 Systolic blood pressure 122 mm[Hg] Lola Kirby [employer]OTH WEAVER[employer]SIMULATION SOFTWARE ENGINEER Work Phone: [facility] 02-01-2021 07:05-0400 Body height 157.5 cm Gerardo Doan MD Work Phone: [facility] 02-01-2021 07:05-0400 Body mass index (BMI) [Ratio] 29.07 kg/m2 Gerardo Doan MD Work Phone: [facility] 02-01-2021 07:05-0400 Body temperature 98.4 [degF] Gerardo Doan MD Work Phone: [facility] 02-01-2021 07:05-0400 Body weight 72.12 kg Gerardo Doan MD Work Phone: [facility] 02-01-2021 07:05-0400 Diastolic blood pressure 84 mm[Hg] Gerardo Doan MD Work Phone: [facility] 02-01-2021 07:05-0400 Heart rate 127 /min Gerardo Doan MD Work Phone: [facility] 02-01-2021 07:05-0400 Respiratory rate 18 /min Gerardo Doan MD Work Phone: [facility] 02-01-2021 07:05-0400 SaO2% (BldA) [Mass fraction] 99 % Gerardo Doan MD Work Phone: [facility] 02-01-2021 07:05-0400 Systolic blood pressure 130 mm[Hg] Gerardo Doan MD Work Phone: [facility] 01-17-2021 09:37-0400 Diastolic blood pressure 80 mm[Hg] Gerardo Doan MD Work Phone: [facility] 01-17-2021 09:37-0400 Heart rate 111 /min Gerardo Doan MD Work Phone: [facility] 01-17-2021 09:37-0400 Systolic blood pressure 130 mm[Hg] Gerardo Doan MD Work Phone: [facility] 01-17-2021 08:17-0400 Body height 157.5 cm Gerardo Doan MD Work Phone: [facility] 01-17-2021 08:17-0400 Body mass index (BMI) [Ratio] 28.74 kg/m2 Gerardo Doan MD Work Phone: [facility] 01-17-2021 08:17-0400 Body temperature 98.6 [degF] Gerardo Doan MD Work Phone: [facility] 01-17-2021 08:17-0400 Body weight 71.31 kg Gerardo Doan MD Work Phone: [facility] 01-17-2021 08:17-0400 Respiratory rate 18 /min Gerardo Doan MD Work Phone: [facility] 01-17-2021 08:17-0400 SaO2% (BldA) [Mass fraction] 99 % Gerardo Doan MD Work Phone: [facility] 03-15-2020 09:24-0400 BMI (Body Mass Index) 29.78 kg/m2 [facility] 03-15-2020 09:24-0400 Body Temperature 97.81 [degF] [facility] 03-15-2020 09:24-0400 Body weight 73.85 kg [facility] 03-15-2020 09:24-0400 BP Diastolic 62 mm[Hg] [facility] 03-15-2020 09:24-0400 BP Systolic 128 mm[Hg] [facility] 03-15-2020 09:24-0400 Height 157.5 cm [facility] 03-11-2019 14:45-0400 BMI (Body Mass Index) 28.9 kg/m2 [facility] 03-11-2019 14:45-0400 Body weight 71.67 kg [facility] 03-11-2019 14:45-0400 BP Diastolic 72 mm[Hg] [facility] 03-11-2019 14:45-0400 BP Systolic 120 mm[Hg] [facility] 03-11-2019 14:45-0400 Height 157.5 cm [facility] Encounters Encounter Date Encounter Type Care Provider Facility Start: 07-16-2024 End: 07-16-2024 Bamboo flowsheet Jeanna KONG Work Phone: [facility] Start: 07-16-2024 End: 07-16-2024 Bamboo flowsheet Jeanna KONG Work Phone: [facility] Start: 07-16-2024 End: 07-16-2024 flow sheet Jeanna KONG Work Phone: [facility] Comment on above: Third trimester preg niko; 32 weeks gestation of Start: 07-16-2024 End: 07-16-2024 ambulatory JEANNA ESTES Not Available Start: 07-02-2024 End: 07-02-2024 Bamboo flowsheet Jeanna KONG Work Phone: [facility] Start: 07-02-2024 End: 07-02-2024 Bamboo flowsheet Jeanna KONG Work Phone: [facility] Start: 07-02-2024 End: 07-02-2024 Periodic preventive med est patient 18-39 yrs Jeanna KONG Work Phone: [facility] Comment on above: Third trimester preg niko; 31 weeks gestation of ; Anemia during in third trimester Start: 07-02-2024 End: 07-02-2024 ambulatory JEANNA ESTES Not Available Start: 06-18-2024 End: 06-18-2024 flow sheet Jeanna KONG Work Phone: [facility] Comment on above: Third trimester preg niko; 28 weeks gestation of ; Anemia during in third trimester; Gestational diabetes mellitus (GDM), antepartum, gestational diabetes method of control unspecified; Elevated glucose tolerance test Start: 06-18-2024 End: 06-18-2024 ambulatory JEANNA ESTES Not Available Start: 06-18-2024 End: 06-18-2024 Bamboo flowsheet Jeanna KONG Work Phone: [facility] Start: 06-18-2024 End: 06-18-2024 Bamboo flowsheet Jeanna KONG Work Phone: [facility] Start: 06-18-2024 ambulatory EVA Mcdonald on [facility] Start: 06-04-2024 End: 06-04-2024 Bamboo flowsheet Eva Celso DO Work Phone: [facility] Start: 06-04-2024 End: 06-04-2024 Bamboo flowsheet Eva Celso DO Work Phone: [facility] Start: 06-04-2024 End: 06-04-2024 flow sheet Eva Celso DO Work Phone: [facility] Comment on above: Second trimester pre gnancy; 26 weeks gestation of ; Elevated glucose tolerance test; Antepartum anemia Start: 06-04-2024 End: 06-04-2024 ambulatory EVA CELSO Not Available Start: 05-28-2024 ambulatory [facility] Start: 05-07-2024 End: 05-07-2024 Bamboo flowsheet Jeanna KONG Work Phone: [facility] Start: 05-07-2024 End: 05-07-2024 Bamboo flowsheet Jeanna KONG Work Phone: [facility] Start: 05-07-2024 End: 05-07-2024 ambulatory JEANNA ESTES Not Available Start: 05-07-2024 End: 05-07-2024 flow sheet Jeanna KONG Work Phone: [facility] Comment on above: 22 weeks gestation o f ; Second trimester ; Diabetes mellitus screening Start: 04-09-2024 End: 04-09-2024 Bamboo flowsheet Eva Celso DO Work Phone: [facility] Start: 04-09-2024 End: 04-15-2024 Bamboo flowsheet Eva Celso DO Work Phone: [facility] Start: 04-09-2024 End: 04-15-2024 Clinisync Result Encounter Eva Celso DO Work Phone: [facility] Unsolicited Start: 04-09-2024 End: 04-10-2024 External Result Encounter Eva Celso DO Work Phone: [facility] Unsolicited Start: 04-09-2024 End: 04-09-2024 Patient encounter procedure Eva Celso DO Work Phone: [facility] Start: 04-09-2024 End: 04-09-2024 Periodic preventive med est patient 18-39 yrs Eva Celso DO Work Phone: [facility] Comment on above: Well woman exam with routine gynecological exam; Exposure to STD; Second trimester ; Need for maternal serum alpha-protein (MSAFP) screening; Screening, , for anatomic survey Start: 04-09-2024 End: 04-09-2024 ambulatory EVA CELSO Not Available Start: 03-12-2024 End: 03-12-2024 ambulatory JEANNA ESTES Not Available Start: 02-13-2024 End: 02-13-2024 ambulatory EVA CELSO Not Available Start: 02-06-2024 ambulatory EVA CELSO [facility] Start: 01-23-2024 End: 01-23-2024 ambulatory EVA CELSO Not Available Start: 03-27-2023 End: 03-27-2023 Patient encounter status Noni Patel CLOTH WEAVER-SIMULATION SOFTWARE ENGINEER Work Phone: [facility] Work Phone: Start: 03-27-2023 End: 03-27-2023 Periodic preventive med est patient 18-39 yrs Noni Patel CLOTH WEAVER-SIMULATION SOFTWARE ENGINEER Work Phone: [facility] [employer] Comment on above: Encounter for gyneco logical examination without abnormal finding (Primary Dx); Screening for cervical cancer; Encounter for surveillance of contraceptive pills Start: 03-19-2022 End: 03-19-2022 Patient encounter status Lola Kirby CLOTH WEAVER-SIMULATION SOFTWARE ENGINEER Work Phone: [facility] [employer] Start: 03-19-2022 End: 03-19-2022 Periodic preventive med est patient 18-39 yrs Lola Kirby [employer]OTH WEAVER-SIMULATION SOFTWARE ENGINEER Work Phone: [facility] [employer] Comment on above: Encounter for gyneco logical examination without abnormal finding (Primary Dx); Initiation of oral contraception Start: 03-17-2021 End: 03-17-2021 Patient encounter status Lola Kirby CLOTH WEAVER-SIMULATION SOFTWARE ENGINEER Work Phone: [facility] [employer] Start: 03-17-2021 End: 03-17-2021 Periodic preventive med est patient 18-39 yrs Lola Kirby CLOTH WEAVER-SIMULATION SOFTWARE ENGINEER Work Phone: [employer] Comment on above: Encounter for gyneco logical examination without abnormal finding (Primary Dx); Encounter for surveillance of contraceptive pills Start: 02-17-2021 End: 02-17-2021 Subsequent hospital visit by physician Gerardo Doan MD Work Phone: [employer] Comment on above: Arrived Start: 02-01-2021 End: 02-01-2021 Office outpatient visit 25 minutes [facility] Do[facility] MD [facility] Comment on above: Murmur (Primary Dx); History of COVID-19; Abnormal EKG; Generalized anxiety disorder; Fluid level behind tympanic membrane of both ears; Leukocytosis, unspecified type Start: 01-27-2021 End: 01-27-2021 Subsequent hospital visit by physician Gerardo Doan MD Work Phone: [employer] Comment on above: Arrived Start: 01-17-2021 End: 01-17-2021 Office outpatient visit 25 minutes Greardo Doan MD Work Phone: [facility] Comment on above: Lightheadedness (Jaycee mandi Dx); Screening for condition; BMI 28.0-28.9,adult; Irregular periods/menstrual cycles; Menorrhagia with regular cycle; Fluid level behind tympanic membrane of both ears; Iron deficiency anemia due to chronic blood loss Start: 03-15-2020 End: 03-15-2020 Periodic preventive med est patient 18-39 yrs Lola Kirby Work Phone: [employer] Comment on above: Encounter for gyneco logical examination without abnormal finding (Primary Dx); Encounter for surveillance of contraceptive pills Start: 03-11-2019 End: 03-11-2019 Periodic preventive med est patient 18-39 yrs Lola Kirby Work Phone: [employer] Comment on above: Encounter for gyneco logical examination without abnormal finding (Primary Dx); Encounter for surveillance of contraceptive pills Start: 11-19-2018 End: 11-19-2018 Patient encounter procedure Other Other [facility] Start: 04-25-2018 Patient encounter EMILIANO Seay [facility] Start: 02-19-2018 Patient encounter EMILIANO Seay [facility] Start: 02-13-2018 Patient encounter EMILIANO Seay [facility] Start: 02-15-2017 End: 02-16-2017 Ambulatory LOLA KIRBY [facility] pital Procedures Date Procedure Procedure Detail Performing Clinician Start: 07-16-2024 Urnls dip stick/tabl et rgnt non-auto w/o micrscp Jeanna KONG Work Phone: Start: 07-02-2024 Urnls dip stick/tabl et rgnt non-auto w/o micrscp Jeanna KONG Work Phone: Start: 06-04-2024 Urnls dip stick/tabl et rgnt non-auto w/o micrscp Eva Celso DO Work Phone: Start: 05-07-2024 Urnls dip stick/tabl et rgnt non-auto w/o micrscp Jeanna KONG Work Phone: Start: 04-09-2024 URETHRITIS/DISCHARGE PLUS VAGINITIS (HTRX) [facility] Work Phone: Start: 04-09-2024 Urnls dip stick/tabl et rgnt non-auto w/o micrscp [facility] Work Phone: Start: 04-09-2024 IGP,APTIMA HPV,AGE GDLN [facility] Work Phone: Start: 03-17-2021 PAP IG, RFX HPV ASCU Sh iggy Kirby CLOTH WEAVER-SIMULATION SOFTWARE ENGINEER Work Phone: Start: 02-17-2021 Echo tthrc r-t [...] 03-15-2020 PAP IG, RFX HPV ASCU Sh erri Divya Kirby Work Phone: Plan of Treatment Date Care Activity Detail Author Start: 04-19-2027 Tetanus vaccination TETANUS [facility] Start: 08-06-2024 End: 08-06-2024 Patient encounter procedure 08/06/2024 3:50 PM EST Routine [facility] [address] [facility] [place] [phone] Jeanna Estes, PA [address] [place] [address] [facility] Start: 07-16-2024 End: 07-16-2024 Patient encounter procedure 07/16/2024 11:00 AM EST Routine [facility] [address] [place] [phone] Jeanna Estes PA [address] [place] [address] Arrived [facility] Comment on above: Arrived Start: 07-02-2024 End: 07-02-2025 Transferrin [Mass/volume] in [...] mellitus screening Expected: 05/07/2024 (Approximate), Expires: 05/07/2025 [facility] Work Phone: Comment on above: Expected: 05/07/2024 (Approximate), Expi res: 05/07/2025 Start: 05-07-2024 End: 05-07-2025 Measurement of glucose 1 hour after glucose challenge for glucose tolerance test Glucose tolerance, 1 hour Lab Routine Diabetes mellitus screening Expected: 05/07/2024 (Approximate), Expires: 05/07/2025 [facility] Comment on above: Expected: 05/07/2024 (Approximate), Expi res: 05/07/2025 Start: 05-07-2024 End: 05-07-2024 Patient encounter procedure 05/07/2024 10:30 AM EDT Routine [facility] [address] [place] [address] Jeanna Estes PA [address] [place], [place] [address] [facility] Start: 04-23-2024 End: 04-23-2024 Professional / ancillary services management 04/23/2024 8:00 AM EDT Ancillary Procedure [facility] [address] [place] [address] [facility] Start: 04-09-2024 End: 05-09-2024 Alpha fetoprotein, maternal Alpha fetoprotein, maternal Lab Routine Need for maternal serum alpha-protein (MSAFP) screening Expected: 04/09/2024 (Approximate), Expires: 05/09/2024 [facility] Comment on above: Expected: 04/09/2024 (Approximate), Expi res: 05/09/2024 Start: 04-09-2024 End: 04-09-2025 US for US OB ANATOMY SINGLE W US OB CERVICAL LENGTH Imaging Routine Screening, , for anatomic survey Expected: 04/09/2024 (Approximate), Expires: 04/09/2025 [facility] Comment on above: Expected: 04/09/2024 (Approximate), Expi res: 04/09/2025 Start: 04-09-2024 End: 04-09-2024 Patient encounter procedure 04/09/2024 8:50 AM EDT Routine [facility] [address] [place] [phone] Eva Houston DO [address] [place] [address] Arrived [facility] Comment on above: Arrived Start: 04-01-2024 End: 04-01-2024 Patient encounter procedure 04/01/2024 8:50 AM EDT Office Visit [facility] [address] [place] [phone] Noni Patel, CLOTH WEAVER-SIMULATION SOFTWARE ENGINEER [address] [place] [phone] [facility] Start: 03-27-2024 Screening for malignant neoplasm of cervix CERVICAL CANCER SCREENING DISCUSSION [facility] Start: 03-29-2023 Influenza vaccination INFLUENZA VACCINE (#1) [facility] Start: 03-21-2023 End: 03-21-2023 Patient encounter procedure 03/21/2023 Office Visit [facility] Lola Kirby, CLOTH WEAVER-SIMULATION SOFTWARE ENGINEER [address] [place] [address] [phone] [facility] Start: 03-19-2023 Screening for malignant neoplasm of cervix CERVICAL CANCER SCREENING DISCUSSION [facility] Start: 03-29-2022 Influenza vaccination INFLUENZA VACCINE (#1) [facility] Start: 03-23-2022 End: 03-23-2022 Patient encounter procedure 03/23/2022 Office Visit [facility] Lola Kirby CLOTH WEAVER-SIMULATION SOFTWARE ENGINEER [id number] [place] [address] [facility] Start: 03-17-2022 Screening for malignant neoplasm of cervix CERVICAL CANCER SCREENING DISCUSSION [facility] Start: 03-29-2021 Influenza vaccination [facility] Start: 03-17-2021 End: 03-17-2021 Patient encounter procedure 03/17/2021 Office Visit [facility] Lola Kirby CLOTH WEAVER-SIMULATION SOFTWARE ENGINEER [id number] [place] [address] [facility] Start: 03-17-2021 End: 03-17-2021 Office Visit 03/17/2021 Office Visit [facility] Lola Kirby CLOTH WEAVER-SIMULATION SOFTWARE ENGINEER [id number] [place] [address] [facility] Start: 03-15-2021 Screening for malignant neoplasm of cervix CERVICAL CANCER SCREENING DISCUSSION [facility] Start: 02-28-2021 End: 02-28-2021 Patient encounter procedure 02/28/2021 Office Visit Family Medicine Gerardo Doan MD [address] [place] [place] [phone] [facility] Start: 02-01-2021 End: 02-01-2022 Complete blood count with white cell differential, automated CBC, EDIF, PLATELET Lab Routine Leukocytosis, unspecified type Expected: 02/01/2021, Expires: 02/01/2022 [facility] Comment on above: Expected: 02/01/2021, Expires: 2 Start: 02-01-2021 End: 02-01-2022 Exercise stress echocardiography ECHOCARDIOGRAM TREADMILL STRESS TEST Stress Echocardiography Routine Murmur History of COVID-19 Abnormal EKG Expected: 02/01/2021, Expires: 02/01/2022 [facility] Comment on above: Expected: 02/01/2021, Expires: 2 Start: 02-01-2021 End: 02-01-2021 Patient encounter procedure 02/01/2021 Office Visit Family Medicine Gerardo Doan MD [address] [place] [phone] [facility] Start: 01-17-2021 End: 01-17-2022 Standard ECG ECG ECG Routine Lightheadedness Expected: 01/17/2021, Expires: 01/17/2022 [facility] Comment on above: Expected: 01/17/2021, Expires: 2 Start: 06-15-2020 End: 03-15-2021 [facility] CYTOLOGY-APPLICATION INTEGRATION ARCHITECT, LIQUID BASED [facility] CYTOLOGY-APPLICATION INTEGRATION ARCHITECT, LIQUID BASED Cytology Routine Encounter for gynecological examination without abnormal finding Expected: 06/15/2020, Expires: 03/15/2021 [facility] Comment on above: Expected: 06/15/2020, Expires: 1 Start: 03-29-2020 Influenza vaccination INFLUENZA VACCINE (#1) [facility] Start: 03-11-2020 Screening for malignant neoplasm of cervix CERVICAL CANCER SCREENING DISCUSSION [facility] Start: 03-29-2019 Influenza vaccination [facility] Start: 03-11-2019 End: 03-11-2020 [facility] CYTOLOGY-APPLICATION INTEGRATION ARCHITECT, LIQUID BASED [facility] CYTOLOGY-APPLICATION INTEGRATION ARCHITECT, LIQUID BASED Cytology Routine Encounter for gynecological examination without abnormal finding Expected: 03/11/2019, Expires: 03/11/2020 [facility] Comment on above: Expected: 03/11/2019, Expires: 0 Start: 02-20-2019 End: 02-20-2019 Office Visit 02/20/2019 Office Visit [facility] Lola Kirby, CLOTH WEAVER-SIMULATION SOFTWARE ENGINEER [id number] [place] [address] [phone] [facility] Start: 02-18-2019 Screening for malignant neoplasm of cervix PAP SMEAR DISCUSSION [facility] Start: 02-15-2018 Screening for malignant neoplasm of cervix PAP SMEAR DISCUSSION [facility] Start: 01-26-2016 Tetanus vaccination TETANUS [facility] Start: 2013 Third diphtheria, tetanus and acellular pertussis (DTaP) vaccination TDAP (ADULT) [facility] Start: 2010 Screening for Chlamydia trachomatis CHLAMYDIA SCREEN [facility] Start: 2009 HIV screening HIV SCREENING DISCUSSION [facility] Start: 11-09-2007 HIV screening HIV SCREENING DISCUSSION [facility] Start: 2006 COVID-19 VACCINE (1) COVID-19 VACCINE (1) [facility] Sy[facility] m Start: 05-10-1995 COVID-19 VACCINE (#1) COVID[facility]19 [facility]ACCINE (#[facility] Start: 1994 GONORRHEA SCREEN GONORRHEA SCREEN [facility] Start: 1994 Hepatitis C antibody, confirmatory test HEPATITIS C VIRUS SCREENING [facility] Start: 1994 Hepatitis C screening HEPATITIS C VIRUS SCREENING [facility] CBC panel - Blood by Automated count CBC Lab Routine Anemia during in third trimester Ordered: 06/18/2024 [facility] Work Phone: Comment on above: Ordered: 06/18/2024 CHLAMYDIA TRACHOMATI S (GENITO/STI) CHLAMYDIA TRACHOMATIS (GENITO/STI) Lab Routine Exposure to STD Ordered: 04/09/2024 [facility] Comment on above: Ordered: 04/09/2024 Cytology Cervical or vaginal smear or scraping study Pap Smear Pathology and Cytology Routine Well woman exam with routine gynecological exam Ordered: 04/09/2024 [facility] Comment on above: Ordered: 04/09/2024 Ferritin [Mass/volum e] in Serum or Plasma Ferritin Lab Routine Anemia during in third trimester Ordered: 07/02/2024 [facility] Work Phone: Comment on above: Ordered: 07/02/2024 Neisseria gonorrhoea e DNA [Presence] in Unspecified specimen by LINO with probe detection Neisseria gonorrhea DNA probe, direct Lab Routine Exposure to STD Ordered: 04/09/2024 [facility] Comment on above: Ordered: 04/09/2024 PAP IG, RFX HPV ASCU PAP IG, RFX HPV ASCU LAB SEND OUT[facility], [facility] PAP IG, RFX HPV ASCU Cytology Routine 03/17/2021 1:55 PM [facility] Work Phone: PAP IG, RFX HPV ASCU PAP IG, RFX HPV ASCU Cytology Routine [facility], [facility] PAP IG, RFX HPV ASCU Cytology Routine 03/27/2023 9:25 AM [facility] SURESWAB(R) ADVANCED VAGINITIS PLUS, TMA SURESWAB(R) ADVANCED VAGINITIS PLUS, TMA Pathology and Cytology Routine Exposure to STD Ordered: 04/09/2024 [facility] Healthcare Work Phone: Comment on above: Ordered: 04/09/2024 Immunizations Immunization Date Immunization Notes Care Provider Pedro ruiz 05-20-2019 influenza virus vacc ine, unspecified [facility] 05-[facility]-2016 influenza virus vacc ine, unspecified formulation Other [facility] 04-24-2012 meningococcal polysaccharide (groups A, C, Y and W-135) diphtheria toxoid conjugate vaccine (MCV4P) Other [facility] 09-02-2007 human papilloma viru s vaccine, bivalent Other [facility] 05-02-2007 human papilloma viru s vaccine, bivalent Other Other [facility] 02-11-2007 human papilloma viru s vaccine, bivalent Other [facility] 02-11-2007 meningococcal polysaccharide (groups A, C, Y and W-135) diphtheria toxoid conjugate vaccine (MCV4P) Other Other [facility] 02-11-2007 varicella virus vaccine Other [facility] 01-25-2006 tetanus toxoid, redu cate diphtheria toxoid, and acellular pertussis vaccine, adsorbed Other [facility] 03-03-2001 varicella virus vaccine Other [facility] 11-14-1999 measles, mumps and r ubella virus vaccine Other Other [facility] 06-15-1996 diphtheria, tetanus toxoids and acellular pertussis vaccine Other [facility] 03-10-1996 haemophilus influenz ae type b vaccine, conjugate unspecified formulation Other Other [facility] 03-10-1996 measles, mumps and r ubella virus vaccine Other Other [facility] 08-13-1995 hepatitis B vaccine, pediatric or pediatric/adolescent dosage Other Other [facility] 04-11-1995 poliovirus vaccine, inactivated Other Other [facility] 02-01-1995 hepatitis B vaccine, pediatric or pediatric/adolescent dosage Other Other [facility] 1994 hepatitis B vaccine, pediatric or pediatric/adolescent dosage Other Other [facility] Payers Date Payer Category Payer Private Health Insurance [employer] [id number] 2021 Unknown [id number] 2021 Unknown [id number] 2016 Unknown 2014 Unknown [id number] 1994 Unknown [id number] [id number]. 983 1994 Unknown [id number] [id number]. 983 1994 Unknown [id number] [id number]. 983 1994 Unknown [id number] [id number]. 1259 1994 Unknown [id number] [id number]. 9 1994 Unknown [id number] [id number]. 1258 1994 Unknown [id number] [id number]. 9 1994 Unknown [id number] [id number]. 1258 1994 Unknown [id number] [id number]. 1258 1994 Unknown [id number] 2.16.840.1.374607.3.579.2. 1258 1994 Unknown [id number] [id number]. 1258 1994 Unknown [id number]. 9 Social History Date Type Detail Facility Start: 03-15-2020 End: 03-27-2023 Tobacco smoking status IDIS Never smoker [facility] Start: 03-15-2020 End: 03-27-2023 Tobacco use and exposure Never used [facility] Start: 03-15-2020 End: 03-27-2023 Alcohol intake Current drinker of alcohol (finding) [facility] Start: 02-03-2020 End: 03-15-2020 History SDOH Alcohol Frequency 2 [facility] Start: 02-18-2018 Alcohol Comment consumes rarely [facility] Start: 1994 Sex Assigned At Not on file [facility] Start: 03-11-2019 End: 03-27-2023 Alcohol intake Yes [facility] Exposure to SARS-CoV -2 (event) Not sure [facility] Start: 03-15-2020 End: 03-27-2023 History of Social function [facility] How often to you hav e a drink containing alcohol? Monthly or less [facility] Average Number of Drinks Not on file [facility] Start: 01-03-2024 Gender identity Identifies as female gender (finding) [facility] Tobacco smoking stat [facility] Tobacco smoking consumption unknown [facility] Start: 12-13-2023 [facility] Start: 1994 Sex assigned at Female [facility] Medical Equipment Procedure Code Equipment Code Equipment Origin al Text Equipment Identifier Dates 1 strip by In Vi tro route Daily Use in the morning prior to breakfast, 1 hour after each meal for a total of 4times daily. [id number] Start: 06-18-2024 End: 07-18-2024 1 each by In Vit ro route Daily Use to check FSBS four times daily [id number] Start: 06-18-2024 End: 07-18-2024 Goals Date Patient Goal Desired Activity /State Personal health goal Comment on above: 1. The patient will have orthotics that allow her to return to all normal activities with minimal to no restriction d/t right foot and knee pain. Clinical Notes 01-17-2021 to 07-16-2024 Bree Wood MA - 07/16/2024 11:00 AM DILAN Desai - 07/02/2024 9:30 AM DILAN Desai - 06/18/2024 2:50 PM Rod Vogt LPN - 06/04/2024 10:10 AM EST Note Date & Type Note Facility 07-16-2024 History of Presen t illness Narrative Reason [...] meal for a total of 4times daily. Lancets Ultra Thin misc 1 each, In [...] nursing note reviewed. Exam conducted with a secondary market manager present. Vitals: There is no height or weight on file to calculate BMI. BP: Patient's last menstrual period was 11/29/2023. ASSESSMENT & PLAN ICD-10-CM 1. Third trimester Z34.93 POCT urinalysis dipstick manually resulted 2. 32 weeks gestation of Z3A.32 Return OB: Patient presents today for a routine obstetrics appointment. Patient is currently 32w6d . Patient states she is doing well but has complaints of being tired due to current . Patient has verbalizes frequent movement. labor precautions was discussed/given and patient was instructed to perform kick counts three times a day. Patient is unable to obtain Iron infusions at her work at this time as they still have not completed PA--Patient would like to have infusions completed at [facility]. Orders Placed This Encounter Procedures POCT urinalysis dipstick manually resulted Follow Up: Patient is to return to office in 2 week for routine OB appointment. Documented by Bree Wood MA on behalf of: DILAN Mcadams documented in this encounter [facility] 07-02-2024 History of Presen t illness Narrative [...] Once as needed Blood Glucose Monitoring Suppl ([employer] Glucometer) w/Device kit 1 kit, Does not [...] to drop, will send prior auth to [facility]. Pt given ferritin orders today Orders Placed This Encounter Procedures Ferritin Transferrin POCT urinalysis dipstick manually resulted Follow Up: Patient is to return to office in 2 week for routine OB appointment. Documented by DILAN Mcadams on behalf of: DILAN Mcadams documented in this encounter [facility] 06-18-2024 History of Presen t illness Narrative [...] Once as needed Blood Glucose Monitoring Suppl ([employer] Glucometer) w/Device kit 1 kit, Does not [...] of: DILAN Mcadams documented in this encounter [facility] 06-04-2024 History of Presen t illness Narrative [...] nursing note reviewed. Exam conducted with a secondary market manager present. Vitals: There is no height or [...] Eva Houston DO documented in this encounter [facility] 05-07-2024 History of Presen t illness Narrative [...] nursing note reviewed. Exam conducted with a secondary market manager present. Vitals: There is no height or [...] of: DILAN Mcadams documented in this encounter [facility] 04-09-2024 History of Presen t illness Narrative [...] nursing note reviewed. Exam conducted with a secondary market manager present. Vitals: There is no height or [...] Eva Houston DO documented in this encounter [facility] 03-27-2023 History of Presen t illness Narrative [...] for cervical cancer Pap collected - [facility] CYTOLOGY-APPLICATION INTEGRATION ARCHITECT, LIQUID BASED 3. Encounter for surveillance of contraceptive pills Doing well tri-cycling. No contraindicating dx. I will send in new script with refills to pharmacy of patient's choice. Patient advised to contact the office with any concerns. Patient voiced understanding of all instructions. Return in about 1 year (around 03/27/2024) for Annual with Noni lew. Thank you. . documented in this encounter [facility] 03-19-2022 History of Presen t illness Narrative [...] Pap w/ HPV rfx ASCUS ordered. - [facility] CYTOLOGY-APPLICATION INTEGRATION ARCHITECT, LIQUID BASED 2. Initiation of oral contraception - norgestimate-ethinyl estradiol 0.25-35 MG-MCG tablet; Take 1 tablet by mouth daily. Dispense: 84 tablet; Refill: 3 Return in about 1 year (around 03/19/2023) for Annual wellness. documented in this encounter [facility] 03-17-2021 History of Presen t illness Narrative [...] Social Gatherings with Friends and Family: Attends Synagogue Services: Active Member of Clubs or Organizations: [...] Pap w/ HPV rfx ASCUS ordered. - [facility] CYTOLOGY-APPLICATION INTEGRATION ARCHITECT, LIQUID BASED 2. Encounter for surveillance of contraceptive pills - levonorgestrel-ethinyl estradiol (Quasense) 0.15-0.03 MG tablet; Take one tablet by mouth daily. Dispense: 91 tablet; Refill: 3 Return in about 1 year (around 03/17/2022) for Annual wellness. documented in this encounter [facility] 02-01-2021 History of Presen t illness Narrative [...] another episode of fainting while shopping at [employer] She has a hx of iron deficiency, she has not been taking iron regularly, so she restarted this for one week. She notes that she was feeling pretty good again. She felt that she was tired all of the time, had another episode while at [employer] Saturday01/15/21. She has a high resting heart [...] Social Gatherings with Friends and Family: Attends Synagogue Services: Active Member of Clubs or Organizations: [...] Assessment: Physical Exam documented in this encounter [facility] 01-17-2021 History of Presen t illness Narrative [...] another episode of fainting while shopping at [employer] She has a hx of iron deficiency, she has not been taking iron regularly, so she restarted this for one week. She notes that she was feeling pretty good again. She felt that she was tired all of the time, had another episode while at [employer] Saturday01/15/21. She has a high resting heart [...] Social Gatherings with Friends and Family: Attends Synagogue Services: Active Member of Clubs or Organizations: [...] Assessment: Physical Exam documented in this encounter [facility] 01-17-2021 Miscellaneous Notes Addended by: MAKAYLA KILGORE on: 01/17/2021 03:15 PM Modules accepted: Orders documented in this encounter [facility] Evaluation note Diagnosis Lightheadedness- Primary Dizziness and [...] blood loss (chronic) [facility] Lightheadedness Dizziness and giddiness documented in this encounter [facility]* Diagnosis Murmur- Primary Undiagnosed cardiac murmurs History of COVID-19 Abnormal EKG Nonspecific abnormal electrocardiogram (ECG) (EKG) Generalized anxiety disorder Fluid level behind tympanic membrane of both ears Leukocytosis, unspecified type [facility] Murmur Undiagnosed cardiac murmurs History of COVID-19 Abnormal EKG Nonspecific abnormal electrocardiogram (ECG) (EKG) [facility] Encounter for gynecological examination without abnormal finding- Primary Routine gynecological examination Encounter for surveillance of contraceptive pills Surveillance of previously prescribed contraceptive pill documented in this encounter [facility]* Diagnosis Encounter for gynecological examination without abnormal finding- Primary Routine gynecological examination Initiation of oral contraception documented in this encounter [facility]* Diagnosis Encounter for gynecological examination without abnormal finding- Primary Routine gynecological examination Screening for cervical cancer Screening for malignant neoplasm of the cervix Encounter for surveillance of contraceptive pills Surveillance of previously prescribed contraceptive pill documented in this encounter [facility]* Diagnosis 22 weeks gestation of Second trimester state, incidental Diabetes mellitus screening Screening for diabetes mellitus documented in this encounter [facility] HealthcareEvaluation note* Diagnosis Second trimester state, incidental 26 weeks gestation of Elevated glucose tolerance test Impaired glucose tolerance test Antepartum anemia documented in this encounter [facility] HealthcareEvaluation note* Diagnosis Third trimester state, incidental 28 weeks gestation of Anemia during in third trimester Gestational diabetes mellitus (GDM), antepartum, gestational diabetes method of control unspecified Elevated glucose tolerance test Impaired glucose tolerance test documented in this encounter [facility] HealthcareEvaluation note* Diagnosis Third trimester state, incidental 31 weeks gestation of Anemia during in third trimester documented in this encounter [facility] HealthcareEvaluation note* Diagnosis Well woman exam with routine gynecological exam Routine gynecological examination Exposure to STD Second trimester state, incidental Need for maternal serum alpha-protein (MSAFP) screening Screening, , for anatomic survey Encounter for anatomic survey documented in this encounter [facility] HealthcareEvaluation note* Diagnosis Third trimester state, incidental 32 weeks gestation of documented in this encounter [facility] Healthcare Summary Purpose Family History No Family History Records FoundNo Family History Records FoundNo Family History Records FoundNo Family History Records Found Advance Directives No Advanced Directives Records FoundNo Advanced Directives Records FoundNo Advanced Directives Records FoundNo Advanced Directives Records Found History of Present Illness * Lola Kirby, CLOTH WEAVER-SIMULATION SOFTWARE ENGINEER - 03/15/2020 9:30 AM EDT History of [...] file Gets together: Not on file Attends rastafari service: Not on file Active member of [...] w/ HPV rfx ASCUS ordered - [employer] [employer]Y-APPLICATION INTEGRATION ARCHITECT, LIQUID BASED; Future 2. Encounter for surveillance [...] file Gets together: Not on file Attends rastafari service: Not on file Active member of [...] w/ HPV rfx ASCUS ordered - [facility] [employer]Y-APPLICATION INTEGRATION ARCHITECT, LIQUID BASED; Future 2. Encounter for surveillance [...] Procedures ECG Gerardo Doan MD [address] [place] [address] Status Reason Specialty Diagnoses / Procedures Referred By Contact Referred To Contact Auth Not Needed Cardiovascular Medicine Diagnoses [place] History of COVID-19 Abnormal EKG Procedures ECHOCARDIOGRAM TREADMILL STRESS TEST [place] ECHO TTHRC R-T 2D W/WO M-MODE REST&STRS CONT ECG [place] DOPPLER ECHO HEART,LIMITED,F/ U [place] DOPPLER COLOR FLOW VELOCITY MAP Gerardo Doan MD [address] [place] [address] [facility] [address] [place] [address] Status Reason Specialty Diagnoses / Procedures Referred By Contact Referred To Contact Closed Cardiovascular Medicine Diagnoses [place] History of COVID-19 Abnormal EKG Procedures ECHOCARDIOGRAM TREADMILL STRESS TEST AZ ECHO TTHRC R-T 2D W/WO M-MODE REST&STRS CONT ECG [place] DOPPLER ECHO HEART,LIMITED,F/U [place] DOPPLER COLOR FLOW VELOCITY MAP Gerardo Doan MD [address] [place] [address] [facility] [address] [place] [address] Additional Source Comments INFORMATION SOURCE (unrecogn ized section and content) DATE CREATED AUTHOR 01/22/2018 [facility] DATE CREATED AUTHOR AUTHOR'S ORGANIZ ATION 05/27/2018 [facility] DATE CREATED AUTHOR AUTHOR'S ORGANIZ ATION 07/17/2024 [facility] DATE CREATED AUTHOR AUTHOR'S ORGANIZ ATION 07/19/2024 [facility] EPIC Reason for Visit (unrecogniz ed section and content) Reason Comments Annual Exam Pap 03/11/19 wnl Reason Comments Annual Exam Pap 02/18/18 wnl Want s to discuss ocp Reason Comments Rapid Heart Rate Status Reason Specialty Diagnoses / Procedures Referred By Contact Referred To Contact New Request Diagnoses Lightheadedness Procedures ECG Gerardo Doan MD [address] [place] [place] [address] Reason Comments Dizziness 2 week f/u Status Reason Specialty Diagnoses / Procedures Referred By Contact Referred To Contact Closed Cardiovascular Medicine Diagnoses [place] History of COVID-19 Abnormal EKG Procedures ECHOCARDIOGRAM TREADMILL STRESS TEST [place] ECHO TTHRC R-T 2D W/WO M-MODE REST&STRS CONT ECG [place] DOPPLER ECHO HEART,LIMITED,F/U [place] DOPPLER COLOR FLOW VELOCITY MAP Gerardo Doan MD [address] [place] [address] [facility] [address] [place] [address] Reason Comments Annual Exam Pap 03/15/20 NILM [...] Care Teams (unrecognized sec tion and content) Executive Services Administrator Relationship Specialty Start Date End Date Gerardo Doan MD PCP - [facility] 12/21/16 Executive Services Administrator Relationship Specialty Start Date End Date Gerardo Doan MD PCP - [facility] 12/21/16 Executive Services Administrator Relationship Specialty Start Date End Date Gerardo Doan MD PCP - [facility] 12/21/16 FOR RECORDS PERTAINING TO PATIENTS WHO [...] BE BASED ON THE PRIMARY CLINICAL RECORDS. [facility] [employer] [facility] provides no warranty or guarantee of the accuracy or completeness of information in this document.
[2024-08-07 07:29] LABS: BOX Test Reference Lab FIRELANDS; BOX Test Sent Out GROUP B STREP
== END 2024-08-06 06:56 | disposition home or self-care (01) ==
LOC: LAB 06:55
PROVIDERS: Visit Provider Physician Assistant
DX: Z34.93 Encounter for supervision of normal pregnancy, unspecified, third trimester (principal); Z3A.35 35 weeks gestation of pregnancy
CPT/HCPCS: 36415; 87081

== ENCOUNTER 2024-08-06 15:04 | Outpatient (OUT) | payer OTHER, SELFPAY ==
[2024-08-06 15:37] LABS: Basophils Percent Auto 0.2 % (0.2-2.0); Eosinophils Absolute Auto 0.1 10^3/uL (0.0-0.7); Eosinophils Percent Auto 0.4 % (0.9-7.0); Hematocrit 33.4 % (36.0-48.0); Hemoglobin 10.7 g/dL (12.0-16.0); Immature Granulocytes Abs Auto 0.31 10^3/uL (0.00-0.03); Lymphocytes Absolute Auto 2.2 10^3/uL (1.2-3.8); Lymphocytes Percent Auto 13.8 % (20.5-60.0); Mean Corpuscular Hemoglobin 30.4 pg (26.7-34.0); Mean Corpuscular Volume 94.9 fL (81.0-99.0); Mean Platelet Volume 10.2 fL (9.5-13.5); Monocytes Absolute Auto 1.3 10^3/uL (0.3-0.8); Neutrophils Absolute Auto 11.9 10^3/uL (1.4-6.5); Neutrophils Percent Auto 75.6 % (43.0-75.0); Platelet Count 346 10^3/uL (150-450); Red Blood Count 3.52 10^6/uL (4.20-5.40); Red Cell Distribution Width 15.6 % (11.0-15.0); White Blood Count 15.7 10^3/uL (4.0-11.0)
== END 2024-08-06 15:05 | disposition home or self-care (01) ==
LOC: LAB 15:07
PROVIDERS: Visit Provider Obstetrics & Gynecology
DX: O99.013 Anemia complicating pregnancy, third trimester (principal); Z3A.35 35 weeks gestation of pregnancy
CPT/HCPCS: 36415; 85025

== ENCOUNTER 2024-08-17 18:30 | Observation (INO) | payer OTHER, SELFPAY ==
--- OUTSIDE RECORDS SUMMARY | 2024-08-17 18:36 | XMS_ITS | CCD ---
Author Organization [facility] Care Team Providers Care General Practice Name Role Phone LOLA KIRBY Unavailable Unavailable LOLA KIRBY Unavailable Unavailable UNKNOWN, PROVIDER Unavailable Unavailable GERARDO DOAN Unavailable Unavail able SALCIDO, EMILIANO S Unavailable Unavailable SELF, SELF Unavailable Unavailable SALCIDO, EMILIANO S Unavailable Unavailable SALCIDO, EMILIANO S Unavailable Unavailable SALCIDO, EMILIANO S Unavailable Unavailable SALCIDO, EMILIANO S Unavailable Unavailable SALCIDO, EMILIANO S Unavailable Unavailable SALCIDO, EMILIANO S Unavailable Unavailable Colton Doanah Primary Care Provider [phone] Colton Doanah Primary Care Provider Jessenia Altavista Primary Care Provider [phone] Jessenia MIRANDA Altavista Primary Care Provider [phone] Jessenia MIRANDA Altavista Primary Care Provider Unavailable Primary Care Provider [...] JEANNA Attending Unavailable MEERA, JEANNA Attending Unavailable CELSO, EVA Attending Unavailable Medications Current Medications Medication Drug [...] Glucose Monitoring Suppl (D-Care Glucometer) w/Device kit (14 sources) Start: 06-18-2024 End: 06-18-2025 Blood Glucose [...] Active isopropyl alcohol 0.7 ml/ml medicated pad (14 sources) Start: 06-18-2024 Alcohol Swabs (Alcohol Prep [...] sources) Serotonin Reuptake Inhibitor Start: 07-26-2023 End: 08-06-2025 take 1 tablet by mouth once daily sertraline (Zoloft) 50 MG tablet Indications: Anxiety, generalized (CMS/HCC) Take 1 tablet (50 mg) by mouth Daily 30 tablet 11 08/06/2024 08/06/2025 Active Start: 03-15-2023 Sertraline 50 MG tablet [...] right foot] Onset: 02-13-2018 02-13-2018 Anxiety disorders (8 sources) Generalized anxiety disorder; Translations: [Generalized anxiety [...] loss (chronic)] Chronic Diabetes mellitus without complication (20 sources) Abnormal glucose tolerance test; Translations: [Other [...] Onset: 12-21-2016 12-21-2016 Chronic Other complications of (20 sources) Anemia of ; Translations: [Anemia complicating [...] of ] 05-07-2024 Episodic Residual codes; unclassified (19 sources) Gestation period, 26 weeks; Translations: [26 [...] [32 weeks gestation of ] 07-16-2024 Episodic Residual codes; unclassified (8 sources) Gestation period, 35 weeks; Translations: [35 weeks gestation of ] Onset: 08-06-2024 08-06-2024 Episodic Residual codes; unclassified (2 sources) Gestation period, 36 weeks; Translations: [36 weeks gestation of ] 08-12-2024 Episodic Unclassified (16 sources) Encounter for screening [...] Facil ity Urinalysis macro (dipstick) panel (U)on 08-12-2024 Bilirubin, UA Negative Negative - 4(70) +++ mg/dL [facility] Blood, UA Negative Negative - 50 Milo/mcL [facility] Clarity, UA Clear [facility] Color, UA Yellow [facility] Glucose, UA Negative Negative - 1999(110) ++++ mg/dL [facility] Interpretation and review of laboratory results Normal [facility] Ketones, UA Negative Negative - 160(16) ++++ mg/dL [facility] Leukocytes, UA Negative Negative - 500+++ Sonu/mcL [facility] Nitrite, UA Negative Negative - Positive [facility] pH, UA 7 5 - 9 [facility] Protein, UA Negative Negative - 1999(20) ++++ mg/dL [facility] Spec Grav, UA 1.01 1 - 1.03 [facility] Urobilinogen, UA 0.2 0.2 - 12 mg/dL [facility] ALL CBC WITH AUTO DIFFon BASOPHILS ABSOLUTE AUTO 0 [facility] Basophils/100 WBC (Bld) 0.2 % 0.2 - 2.0 % [facility] Eosinophils/100 WBC (Bld) 0.4 % Low 0.9 - 7.0 % [facility] Erythrocyte distribution width (RBC) [Ratio] 15.6 % High 11.0 - 15.0 % [facility] Hematocrit (Bld) [Volume fraction] 33.4 % Low 36.0 - 48.0 % [facility] Hemoglobin (Bld) [Mass/Vol] 10.7 g/dL Low 12.0 - 16.0 g/dL [facility] IMMATURE GRANULOCYTES ABS AUTO 0.31 High [facility] Immature granulocytes/100 WBC (Bld) 2 % High 0.0 - 0.5 % [facility] Interpretation and review of laboratory results Abnormal [facility] LYMPHOCYTES ABSOLUTE AUTO 2.2 [facility] Lymphocytes/100 WBC (Bld) 13.8 % Low 20.5 - 60.0 % [facility] MCH (RBC) [Entitic mass] 30.4 pg 26.7 - 34.0 pg [facility] MCHC (RBC) [Mass/Vol] 32 g/dL 29.9 - 35.2 g/dL [facility] MCV (RBC) [Entitic vol] 94.9 fL 81.0 - 99.0 fL [facility] MONOCYTES ABSOLUTE AUTO 1.3 High [facility] Monocytes/100 WBC (Bld) 8 % 1.7 - 12.0 % [facility] NEUTROPHILS ABSOLUTE AUTO 11.9 High [facility] Neutrophils/100 WBC (Bld) 75.6 % High 43.0 - 75.0 % [facility] Platelet mean volume (Bld) [Entitic vol] 10.2 fL 9.5 - 13.5 fL [facility] TBH EO # 0.1 [facility] PLT 346 [facility] RBC 3.52 Low [facility] WBC 15.7 High [facility] Urinalysis macro (dipstick) panel (U)on 08-06-2024 Bilirubin, UA Negative Negative - 4(70) +++ mg/dL [facility] Blood, UA Negative Negative - 50 Milo/mcL [facility] Clarity, UA Clear [facility] Color, UA Yellow [facility] Glucose, UA Negative Negative - 1999(110) ++++ mg/dL [facility] Interpretation and review of laboratory results Abnormal [facility] Ketones, UA Positive Negative - 160(16) ++++ mg/dL [facility] Comment on above: 40 Leukocytes, UA Moderate Negative - 500+++ Sonu/mcL [facility] Nitrite, UA Negative Negative - Positive [facility] pH, UA 7 5 - 9 [facility] Protein, UA Negative Negative - 1999(20) ++++ mg/dL [facility] Spec Grav, UA 1.015 1 - 1.03 [facility] Urobilinogen, UA 0.2 0.2 - 12 mg/dL [facility] Urinalysis macro (dipstick) panel (U)on 07-16-2024 Bilirubin, UA Negative Negative - 4(70) +++ mg/dL [facility] Blood, UA Negative Negative - 50 Milo/mcL [facility] Clarity, UA Clear [facility] Color, UA Yellow [facility] Glucose, UA Negative Negative - 1999(110) ++++ mg/dL [facility] Interpretation and review of laboratory results Abnormal [facility] Ketones, UA Positive Negative - 160(16) ++++ mg/dL [facility] Comment on above: trace Leukocytes, UA Positive Negative - 500+++ Sonu/mcL [facility] Comment on above: small Nitrite, UA Negative Negative - Positive [facility] pH, UA 6 5 - 9 [facility] Protein, UA Negative Negative - 1999(20) ++++ mg/dL [facility] Spec Grav, UA 1.02 1 - 1.03 [facility] Urobilinogen, UA 0.2 0.2 - 12 mg/dL [facility] Urinalysis macro (dipstick) panel (U)on 07-02-2024 Bilirubin, UA Negative Negative - 4(70) +++ mg/dL [facility] Blood, UA Negative Negative - 50 Milo/mcL [facility] Clarity, UA Clear [facility] Color, UA Yellow [facility] Glucose, UA Negative Negative - 1999(110) ++++ mg/dL [facility] Interpretation and review of laboratory results Abnormal [facility] Ketones, UA Positive Negative - 160(16) ++++ mg/dL [facility] Leukocytes, UA Many Negative - 500+++ Sonu/mcL [facility] Nitrite, UA Negative Negative - Positive [facility] pH, UA 7 5 - 9 [facility] Protein, UA Negative Negative - 1999(20) ++++ mg/dL [facility] Spec Grav, UA 1.02 1 - 1.03 [facility] Urobilinogen, UA 1.0 0.2 - 12 mg/dL [facility] FAX REQUESTon 06-18-2024 FAX TO [phone] Normal [facility] Comment on above: Result Comment: Test ing performed at [place] [address] Performed By: #### F X #### [place] [address] GTT 3HR GESTATIONALon 2023 Glucose [Mass/Vol] 57 mg/dL Low 65-140 [facility] Comment on above: Result Comment: Test ing performed at [place] [address] Performed By: #### F X #### [place] [address] Glucose [Mass/Vol] 140 mg/dL Normal 65-165 [facility] Comment on above: Result Comment: Test ing performed at [place] [address] Performed By: #### F X #### [place] [address] Glucose [Mass/Vol] 210 mg/dL High 65-190 [facility] Comment on above: Result Comment: Test ing performed at [place] [address] Performed By: #### F X #### [place] [address] Glucose [Mass/Vol] 96 mg/dL Normal <100 [facility] Comment on above: Result Comment: Test ing performed at [place] [address] Performed By: #### F X #### [place] [address] Urinalysis macro (dipstick) panel (U)on 06-04-2024 Bilirubin, UA Negative Negative - 4(70) +++ mg/dL [facility] Blood, UA Positive Negative - 50 Milo/mcL [facility] Comment on above: trace Clarity, UA Clear [facility] Color, UA Yellow [facility] Glucose, UA Negative Negative - 2000(110) ++++ mg/dL [facility] Interpretation and review of laboratory results Abnormal [facility] Ketones, UA Negative Negative - 160(16) ++++ mg/dL [facility] Leukocytes, UA Positive Negative - 500+++ Sonu/mcL [facility] Comment on above: small Nitrite, UA Negative Negative - Positive [facility] pH, UA 7 5 - 9 [facility] Protein, UA Negative Negative - 2000(20) ++++ mg/dL [facility] Spec Grav, UA 1.015 1 - 1.03 [facility] Urobilinogen, UA 0.2 0.2 - 12 mg/dL [facility] CBCon 05-28-2024 ABSOLUTE BAS 0.0 10*3/uL Normal 0.0-0.2 [facility] Comment on above: Result Comment: Test ing performed at [place] [address] Performed By: #### F X #### [place] [address] ABSOLUTE EOS 0.0 10*3/uL Normal 0.0-0.7 [facility] Comment on above: Performed By: #### F X #### Testing performed at [address] [address] ABSOLUTE NEUTROPHIL COUNT 11.0 10*3/uL High 1.4-6.5 [facility] Comment on above: Performed By: #### F X #### Testing performed at [address] [address] Basophils/100 WBC (Bld) 0.1 % Normal 0.0-2.0 [facility] Comment on above: Performed By: #### F X #### Testing performed at [address] [address] DTYPE AUTO DIFF Normal [facility] Comment on above: Performed By: #### F X #### Testing performed at [address] [address] Eosinophils/100 WBC (Bld) 0.2 % Normal 0.0-11.0 [facility] Comment on above: Performed By: #### F X #### Testing performed at [address] [address] Lymphocytes (Bld) [#/Vol] 1.4 10*3/uL Normal 1.2-3.4 [facility] Comment on above: Performed By: #### F X #### Testing performed at [address] [place] [address] Lymphocytes/100 WBC (Bld) 10.8 % Low 20.0-55.0 [facility] Comment on above: Performed By: #### F X #### Testing performed at [address] [address] Monocytes (Bld) [#/Vol] 0.6 10*3/uL Normal 0.0-0.7 [facility] Comment on above: Performed By: #### F X #### Testing performed at [address] [address] Monocytes/100 WBC (Bld) 4.2 % Normal 0.0-10.0 [facility] Comment on above: Performed By: #### F X #### Testing performed at [address] [address] Neutrophils/100 WBC (Bld) 84.7 % High 37.0-75.0 [facility] Comment on above: Performed By: #### F X #### Testing performed at [address] [address] Erythrocyte distribution width (RBC) [Ratio] 13.3 % Normal 11.5-14.5 [facility] Comment on above: Performed By: #### F X #### Testing performed at [place] [id number] Hematocrit (Bld) [Volume fraction] 29.4 % Low 36.0-48.0 [facility] Comment on above: Performed By: #### F X #### Testing performed at [address] [address] Hemoglobin (Bld) [Mass/Vol] 10.0 g/dL Low 12.0-16.0 [facility] Comment on above: Performed By: #### F X #### Testing performed at [address] [address] MCH (RBC) [Entitic mass] 31.4 pg Normal 26.0-35.0 [facility] Comment on above: Performed By: #### F X #### Testing performed at [address] [address] MCHC (RBC) [Mass/Vol] 34.1 g/dL Normal 27.0-37.0 [facility] Comment on above: Performed By: #### F X #### Testing performed at [address] [address] MCV (RBC) [Entitic vol] 92.0 fL Normal 80.0-100.0 [facility] Comment on above: Performed By: #### F X #### Testing performed at [address] [address] Platelet mean volume (Bld) [Entitic vol] 7.2 fL Low 7.4-11.0 [facility] Comment on above: Performed By: #### F X #### [place] [address] Platelets (Bld) [#/Vol] 403 10*3/uL High 130-400 [facility] Comment on above: Performed By: #### F X #### [place] [address] RBC (Bld) [#/Vol] 3.20 10*6/uL Low 4.0-5.4 [facility] Comment on above: Performed By: #### F X #### [place] [address] WBC (Bld) [#/Vol] 13.0 10*3/uL High 3.6-11.0 [facility] Comment on above: Performed By: #### F X #### [place] [address] FAX REQUESTon 05-28-2024 FAX TO [phone] Normal [facility] Comment on above: Result Comment: CONCHITA ECTED ON 05/28 AT 1651: PREVIOUSLY REPORTED [phone] Performed By: #### F X #### [place] [address] GLUCOSE 1 HR PCon 05-28-2024 Glucose [Mass/Vol] 146 mg/dL Normal 65-200 [facility] Comment on above: Result Comment: Test ing performed at [place] [address] Performed By: #### F X #### [place] [address] Urinalysis macro (dipstick) panel (U)on 05-07-2024 Bilirubin, UA Negative Negative - 4(70) +++ mg/dL [facility] Blood, UA Negative Negative - 50 Milo/mcL [facility] Clarity, UA Clear [facility] Color, UA Yellow [facility] Glucose, UA Negative Negative - 2000(110) ++++ mg/dL [facility] Interpretation and review of laboratory results Abnormal [facility] Ketones, UA Negative Negative - 160(16) ++++ mg/dL [facility] Leukocytes, UA Trace Negative - 500+++ Sonu/mcL [facility] Nitrite, UA Negative Negative - Positive [facility] pH, UA 7.0 5 - 9 [facility] Protein, UA Negative Negative - 2000(20) ++++ mg/dL [facility] Spec Grav, UA 1.010 1 - 1.03 [facility] Urobilinogen, UA 0.2 0.2 - 12 mg/dL [facility] IGP,APTIMA HPV,AGE GDLNon AGE GDLN ACOG TESTING Note . [facility] Comment on above: TESTS RESULT FLAG UN ITS REF RANGE LAB Clinician Provided Cytology Information Source.............Cervix No. of containers..01 ThinPrep Vial Age Algo ACOG Viktoria... -25 08 FLAG LEGEND: L-Low Normal,H-High Normal,LL-Alert Low,HH-Alert High <-Panic Low,>-Panic High,A-Abnormal,AA-Critical Abnormal Performed at: 01 [facility] [address] Kayleen Nielson MD, IGP, RFX APTIMA HPV ASCU Note . [facility] Comment on above: TESTS RESULT FLAG U NITS REF RANGE LAB DIAGNOSIS: 02 NEGATIVE FOR INTRAEPITHELIAL LESION OR MALIGNANCY. Specimen adequacy: 02 Satisfactory for evaluation. No endocervical component is identified. Performed by: 02 Henok Adames Coal Equipment Operator (ASCP) . 02 Note: Note 02 The [...] <-Panic Low,>-Panic High,A-Abnormal,AA-Critical Abnormal Performed at: [address] [facility] [address] [place] [address] Kayleen Nielson MD, Performed at: =G - [facility] [address] [id number] Knitted Garment Finisher: Kayleen Nielson MD, Phone: [phone] Performed at: [facility] [id number] Knitted Garment Finisher: Kayleen Nielson MD, Phone: [phone] [facility] URETHRITIS/DISCHARGE PLUS VA GINITIS (HTRX)on 04-10-2024 ATOPOBIUM VAGINAE 0.000 [facility] ATOPOBIUM VAGINAE Not detected [facility] BVAB 2,3 (BACTERIAL VAGINOSIS ASSOCIATED BACTERIA 2, 3); MOBILUNCUS SPP 0.000 [facility] BVAB 2,3 (BACTERIAL VAGINOSIS ASSOCIATED BACTERIA 2, 3); MOBILUNCUS SPP Not detected [facility] OMER ALBICANS, PARAPSILOSIS, TROPICALIS 0.000 [facility] OMER ALBICANS, PARAPSILOSIS, TROPICALIS Not detected [facility] OMER GLABRATA 0.000 [facility] OMER GLABRATA Not detected [facility] OMER KRUSEI 0.000 [facility] OMER KRUSEI Not detected [facility] CHLAMYDIA TRACHOMATIS 0.000 [facility] CHLAMYDIA TRACHOMATIS Not detected [facility] GARDNERELLA VAGINALIS 0.000 [facility] GARDNERELLA VAGINALIS Not detected [facility] MEGASPHAERA (TYPES 1, 2) 0.000 [facility] MEGASPHAERA (TYPES 1, 2) Not detected [facility] MYCOPLASMA GENITALIUM 0.000 [facility] MYCOPLASMA GENITALIUM Not detected [facility] NEISSERIA GONORRHOEAE 0.000 [facility] NEISSERIA GONORRHOEAE Not detected [facility] TRICHOMONAS VAGINALIS 0.000 [facility] TRICHOMONAS VAGINALIS Not detected [facility] Urinalysis macro (dipstick) panel (U)on 04-09-2024 Bilirubin, UA Negative Negative - 4(70) +++ mg/dL [facility] Blood, UA Negative Negative - 50 Milo/mcL [facility] Clarity, UA Cloudy [facility] Color, UA Yellow [facility] Glucose, UA Negative Negative - 1999(110) ++++ mg/dL [facility] Interpretation and review of laboratory results Abnormal [facility] Ketones, UA Negative Negative - 160(16) ++++ mg/dL [facility] Leukocytes, UA Positive Negative - 500+++ Sonu/mcL [facility] Nitrite, UA Negative Negative - Positive [facility] Comment on above: small pH, UA 8.0 5 - 9 [facility] Protein, UA Negative Negative - 1999(20) ++++ mg/dL [facility] Spec Grav, UA 1.020 1 - 1.03 [facility] Urobilinogen, UA 0.2 0.2 - 12 mg/dL [facility] RPRon 02-10-2024 Reagin Ab RPR Ql (S) Non-Reactive Normal NONREACTIVE [facility] Comment on above: Result Comment: Test ing performed at [place] [address] Performed By: #### R UBL, ACBC, FX, GHIV, ARPR #### [place] [address] RUBELLA SCREENon 02-10-2024 RUBELLA SCREEN Positive Normal POSITIVE [facility] Comment on above: Result Comment: POSI TIVE RESULT INDICATES PRESUMED IMMUNITY Testing performed at [place] [address] Performed By: #### R UBL, ACBC, FX, GHIV, ARPR #### [place] [address] HEP B SURFACE AGon HEP B SURFACE AG Negative Normal NEGATIVE [facility] Comment on above: Performed By: #### F X #### [place] [address] HEP C ABon 02-07-2024 HEP C AB Negative Normal NEGATIVE [facility] Comment on above: Performed By: #### F X #### [place] [address] CBCon 02-06-2024 ABSOLUTE BAS 0.0 10*3/uL Normal 0.0-0.2 [facility] Comment on above: Result Comment: Test ing performed at [place] [address] Performed By: #### R UBL, ACBC, FX, GHIV, ARPR #### [place] [address] ABSOLUTE EOS 0.1 10*3/uL Normal 0.0-0.7 [facility] Comment on above: Performed By: #### R UBL, ACBC, FX, GHIV, ARPR #### [place] [address] ABSOLUTE NEUTROPHIL COUNT 9.0 10*3/uL High 1.4-6.5 [facility] Comment on above: Performed By: #### R UBL, ACBC, FX, GHIV, ARPR #### Testing performed at [address] [address] Basophils/100 WBC (Bld) 0.2 % Normal 0.0-2.0 [facility] Comment on above: Performed By: #### R UBL, ACBC, FX, GHIV, ARPR #### Testing performed at [address] [address] DTYPE AUTO DIFF Normal [facility] Comment on above: Performed By: #### R UBL, ACBC, FX, GHIV, ARPR #### Testing performed at [address] [address] Eosinophils/100 WBC (Bld) 0.6 % Normal 0.0-11.0 [facility] Comment on above: Performed By: #### R UBL, ACBC, FX, GHIV, ARPR #### Testing performed at [address] [address] Lymphocytes (Bld) [#/Vol] 2.2 10*3/uL Normal 1.2-3.4 [facility] Comment on above: Performed By: #### R UBL, ACBC, FX, GHIV, ARPR #### Testing performed at [address] [address] Lymphocytes/100 WBC (Bld) 18.4 % Low 20.0-55.0 [facility] Comment on above: Performed By: #### R UBL, ACBC, FX, GHIV, ARPR #### Testing performed at [address] [address] Monocytes (Bld) [#/Vol] 0.8 10*3/uL High 0.0-0.7 [facility] Comment on above: Performed By: #### R UBL, ACBC, FX, GHIV, ARPR #### Testing performed at [address] [address] Monocytes/100 WBC (Bld) 6.3 % Normal 0.0-10.0 [facility] Comment on above: Performed By: #### R UBL, ACBC, FX, GHIV, ARPR #### [place] [address] Neutrophils/100 WBC (Bld) 74.5 % Normal 37.0-75.0 [facility] Comment on above: Performed By: #### R UBL, ACBC, FX, GHIV, ARPR #### [place] [address] Erythrocyte distribution width (RBC) [Ratio] 13.5 % Normal 11.5-14.5 [facility] Comment on above: Performed By: #### R UBL, ACBC, FX, GHIV, ARPR #### [place] [address] Hematocrit (Bld) [Volume fraction] 36.2 % Normal 36.0-48.0 [facility] Comment on above: Performed By: #### R UBL, ACBC, FX, GHIV, ARPR #### [place] [address] Hemoglobin (Bld) [Mass/Vol] 12.0 g/dL Normal 12.0-16.0 [facility] Comment on above: Performed By: #### R UBL, ACBC, FX, GHIV, ARPR #### [place] [address] MCH (RBC) [Entitic mass] 29.6 pg Normal 26.0-35.0 [facility] Comment on above: Performed By: #### R UBL, ACBC, FX, GHIV, ARPR #### [place] [address] MCHC (RBC) [Mass/Vol] 33.0 g/dL Normal 27.0-37.0 [facility] Comment on above: Performed By: #### R UBL, ACBC, FX, GHIV, ARPR #### [place] [address] MCV (RBC) [Entitic vol] 89.7 fL Normal 80.0-100.0 [facility] Comment on above: Performed By: #### R UBL, ACBC, FX, GHIV, ARPR #### [place] [address] Platelet mean volume (Bld) [Entitic vol] 6.9 fL Low 7.4-11.0 [facility] Comment on above: Performed By: #### R UBL, ACBC, FX, GHIV, ARPR #### [place] [address] Platelets (Bld) [#/Vol] 406 10*3/uL High 130-400 [facility] Comment on above: Performed By: #### R UBL, ACBC, FX, GHIV, ARPR #### [place] [address] RBC (Bld) [#/Vol] 4.04 10*6/uL Normal 4.0-5.4 [facility] Comment on above: Performed By: #### R UBL, ACBC, FX, GHIV, ARPR #### [place] [address] WBC (Bld) [#/Vol] 12.1 10*3/uL High 3.6-11.0 [facility] Comment on above: Performed By: #### R UBL, ACBC, FX, GHIV, ARPR #### [place] [address] FAX REQUESTon 02-06-2024 FAX TO [phone] [facility] Comment on above: Result Comment: Test ing performed at [place] [address] Performed By: #### F X #### [place] [address] FAX TO [phone] [facility] Comment on above: Result Comment: Test ing performed at [place] [address] Performed By: #### F X #### [place] [address] FAX TO [phone] [facility] Comment on above: Result Comment: Test ing performed at [place] [address] Performed By: #### F X #### [place] [address] FAX TO [phone] [facility] Comment on above: Result Comment: Test ing performed at [place] [address] Performed By: #### F X, HA1CT #### [place] [address] FAX TO [phone] [facility] Comment on above: Result Comment: Test ing performed at [place] [address] Performed By: #### R UBL, ACBC, FX, GHIV, ARPR #### [place] [address] HEMOGLOBIN A1Con 02-06-2024 Glucose [Mass/Vol] 100 mg/dL Normal [facility] Comment on above: Result Comment: Test ing performed at [place] [address] Performed By: #### F X, HA1CT #### [place] [address] HbA1c (Bld) [Mass fraction] 5.1 % Normal 0-6 [facility] Comment on above: Result Comment: NORMAL <5.7% PREDIABETES 5.7-6.4% DIABETES 6.5% OR HIGHER Performed By: #### F X, HA1CT #### [place] [address] HIV 1,2 ABon 02-06-2024 HIV 1,2 Non-Reactive Normal NONREACTIVE [facility] Comment on above: Result Comment: Test ing performed at [place] [address] Performed By: #### R UBL, ACBC, FX, GHIV, ARPR #### [place] [address] TYPE AND SCREEN CROSSMATCH C ONVERTIBLEon 02-06-2024 TYPE AND SCREEN CROSSMATCH CONVERTIBLE WORKUP EXPIRES 02/09/2024,2359 ABO/RH(D) O POSITIVE ANTIBODY SCREEN NEGATIVE ARM BAND NUMBER [id number] Testing performed at [place] [address] Normal [facility] Comment on above: Performed By: #### T SCC #### [place] [address] URINE CULTUREon 02-06-2024 Bacteria identified Cx Nom (U) SPECIMEN DESCRIPTION URINE CLEAN CATCH CULTURE NO PATHOGENS ISOLATED * Result Note: Testing performed at [place] [address] * REPORT STATUS 02/08/2024 * Result Note: FINAL * Normal [facility] Comment on above: Performed By: #### A URNC #### [place] [address] ECHOCARDIOGRAM TREADMILL STR ESS TESTOrdered By: Gerardo [...] were monitored. An Echocardiogram was performed by quality assurance/r&d lab technician in four stages in quad fashion. At peak stress, four selected images were obtained and placed side by side with resting images for comparison. Stress Test Details Test: Exercise stress testing was performed using a Rodger protocol. HR Resting HR: 109 bpm Max Heart Rate (APMHR): 194.329633 bpm Max HR Achieved: 200 bpm Target HR (85% APMHR): 164.792348 bpm % of APMHR: 103.09 Recovery HR: [...] 13.70 METs Scale: Active Angina Score: None [facility] User, Interfaces - 02/18/2021 12:14 AM EDT [...] were monitored. An Echocardiogram was performed by quality assurance/r&d lab technician in four stages in quad fashion. At peak stress, four selected images were obtained and placed side by side with resting images for comparison. Stress Test Details Test: Exercise stress testing was performed using a Rodger protocol. HR Resting HR: 109 bpmMax Heart Rate (APMHR): 194.125690 bpm Max HR Achieved: 200 bpmTarget HR (85% APMHR): 164.661156 bpm % of APMHR: 103.09 Recovery HR: [...] 13.70 METs Scale: Active Angina Score: None [facility] ECGOrdered By: Gerardo Doan on 01-27-2021 [facility] B12 & FOLATEOrdered By: Yessy Doan on 01-17-2021 Cobalamin (Vitamin B12) [Mass/Vol] 383 pg/mL 239 - 931 PG/ML [facility] Folate [Mass/Vol] 19.7 ng/mL [facility] Comment on above: Testing performed at [place], [place] [address] [facility] CBC, EDIF, PLATELETOrdered B y: Gerardo Doan on 01-17-2021 ABSOLUTE BASOPHIL COUNT 0.1 10*3/uL 0.0 - 0.2 10*3/uL [facility] Comment on above: Testing performed at [place], [place] [address] Basophils/100 WBC (Bld) 0.4 % 0.0 - 2.0 % [facility] Differential cell count method Nom (Bld) AUTO DIFF % [facility] Eosinophils (Bld) [#/Vol] 0.10 10*3/uL 0.0 - 0.7 10*3/uL [facility] Eosinophils/100 WBC (Bld) 0.6 % 0.0 - 11.0 % [facility] Erythrocyte distribution width (RBC) [Ratio] 13.2 % 11.5 - 14.5 % [facility] Hematocrit (Bld) [Volume fraction] 39.3 % 36.0 - 48.0 % [facility] Hemoglobin (Bld) [Mass/Vol] 13.6 g/dL [facility] Interpretation and review of laboratory results Abnormal [facility] Lymphocytes (Bld) [#/Vol] 1.90 10*3/uL 1.2 - 3.4 10*3/uL [facility] Lymphocytes/100 WBC (Bld) 13.6 % Low 20.0 - 55.0 % [facility] MCH (RBC) [Entitic mass] 31.1 pg 26.0 - 35.0 PG [facility] MCHC (RBC) [Mass/Vol] 34.7 g/dL [facility] MCV (RBC) [Entitic vol] 89.6 fL [facility] Monocytes (Bld) [#/Vol] 0.5 10*3/uL 0.0 - 0.7 10*3/uL [facility] Monocytes/100 WBC (Bld) 3.5 % 0.0 - 10.0 % [facility] Neutrophils (Bld) [#/Vol] 11.3 10*3/uL High 1.4 - 6.5 10*3/uL [facility] Neutrophils/100 WBC (Bld) 81.9 % High 37.0 - 75.0 % [facility] Platelet mean volume (Bld) [Entitic vol] 7.6 fL [facility] Platelets (Bld) [#/Vol] 483 10*3/uL High 130.0 - 400.0 10*3/uL [facility] RBC (Bld) [#/Vol] 4.38 10*6/uL 4.0 - 5.4 10*6/uL [facility] WBC (Bld) [#/Vol] 13.8 10*3/uL High 3.6 - 11.0 10*3/uL [facility] COMPREHENSIVE METABOLIC PANE LOrdered By: Gerardo Doan on 01-17-2021 Albumin [Mass/Vol] 4.6 G/dl 3.5 - 5.0 G/dl [facility] Albumin/Globulin [Mass ratio] 1.4 {ratio} [facility] ALP [Catalytic activity/Vol] 57 U/L [facility] ALT [Catalytic activity/Vol] 18 U/L <35 IU/L [facility] AST [Catalytic activity/Vol] 21 U/L [facility] Bilirubin [Mass/Vol] 0.4 mg/dL [facility] Calcium [Mass/Vol] 10.3 mg/dL High [facility] Chloride [Moles/Vol] 106 mmol/L [facility] Comment on above: Please note: Triglyc eride levels of 600mg/dL or higher may positively bias chloride results by approximately 2.1 mmol CO2 [Moles/Vol] 21 mmol/L Low [facility] Creatinine [Mass/Vol] 0.50 mg/dL Low [facility] GFR COMMENT Average GFR for 20-2 9 years old = 116. [facility] Comment on above: Chronic Kidney disea se, GFR = <60. Kidney failure, GFR = <15. The GFR estimate is not adjusted for extreme body surface area or acute process, nor has it been validated for women or ethnic groups other than and . Testing performed at [facility], [place], [place] [address] GFR/1.73 sq M.predicted among blacks MDRD (S/P/Bld) [Vol rate/Area] mL/min/{1.73_m2} ml/min/1.73sq.m [facility] GFR/1.73 sq M.predicted among non-blacks MDRD (S/P/Bld) [Vol rate/Area] mL/min/{1.73_m2} ml/min/1.73sq.m [facility] Glucose post fast [Mass/Vol] 105 mg/dL High [facility] Comment on above: NORMAL <100 mg/dL PREDIABETES 101-126 mg/dL DIABETES 126 mg/dL or higher Interpretation and review of laboratory results Abnormal [facility] Potassium [Moles/Vol] 4.1 mmol/L [facility] Protein [Mass/Vol] 8.0 g/dL [facility] Sodium [Moles/Vol] 138 mmol/L [facility] Urea nitrogen [Mass/Vol] 8 mg/dL [facility] HEMOGLOBIN [id number] By: Sa edi Doan on 01-17-2021 Glucose [Mass/Vol] 100 mg/dL [facility] Comment on above: Testing performed at [place] [address] HbA1c (Bld) [Mass fraction] 5.1 % 0 - 6 % [facility] Comment on above: NORMAL <5.7% PREDIABETES 5.7-6.4% DIABETES 6.5% OR HIGHER [facility] IRON/IRON BINDING/TRANSFERRI NOrdered By: Gerardo Doan on 01-17-2021 Interpretation and review of laboratory results Abnormal [facility] Iron [Mass/Vol] 145 ug/dL [facility] Iron binding capacity [Mass/Vol] 505 High [facility] Iron saturation [Mass fraction] 29 % [facility] Comment on above: Testing performed at [address] TSHOrdered By: Gerardo Doan on 01-17-2021 TSH Qn 1.420 m[IU]/L [facility] Comment on above: Testing performed at [address] PROGRESSon 04-25-2018 [facility] NOTES Normal [facility] PROGRESSon 02-19-2018 [facility] NOTES Normal [facility] PROGRESSon 02-13-2018 [facility] NOTES Normal [facility] PAP, ThinPrep, rfx HPV ASCUS on 02-15-2017 Comment [facility] Comment on above: Result Comment: IGLB P CPT CODE AUTOMATION: (NOTE)IGLBP CPT CODE AUTOMATION: This liquid based ThinPrep(R) pap test was screenedwith theIGLBP CPT CODE AUTOMATION: use of an image guided system. Performed By: #### L PRAS ####[facility] [address] [place] [address] Lab Director: Dr. Lauro Merino, Diagnosis [facility] Comment on above: Result Comment: Comm ent(NOTE)NEGATIVE FOR INTRAEPITHELIAL LESION AND MALIGNANCY.CELLULAR CHANGES ASSOCIATED WITH INFLAMMATION ARE PRESENT.THIS SPECIMEN WAS RESCREENED PART OF OUR COMMAND AND CONTROL SPECIALIST PROGRAM. Performed By: #### L PRAS ####[facility] [address] [place] [address] Lab Director: Dr. Lauro Merino, IGLBP CPT COde Comment [facility] Comment on above: Performed By: #### L PRAS ####[facility] [address] [place] [address] lab Director: Dr. Lauro Merino, Note [facility] Comment on above: Result Comment: Comm ent(NOTE)The Pap smear is a screening test designed to aid in the detection ofpremalignant and malignant conditions of the uterine cervix. It isnot a diagnostic procedure and should not be used as the sole meansof detecting cervical cancer. Both false-positive and false-negativereports do occur. Performed By: #### L PRAS ####[facility] [address] [place] [address] Lab Director: Dr. Lauro Merino DO Performed By Millie Lucero, Coal Equipment Operator [facility] Comment on above: Performed By: #### L PRAS ####[facility] [address] [place] [address] Lab Director: Dr. Lauro Merino DO Performed By [facility] Comment on above: Performed By: #### L PRAS ####[facility] [address] [place] [address] Lab Director: Dr. Lauro Merino DO QC Reviewed By Comment Dedra Yip , Supervisory Coal Equipment Operator (ASCP) [facility] Comment on above: Performed By: #### L PRAS ####[facility] [address] [place] [address] Lab Director: Dr. Lauro Merino DO Spec Adequacy [facility] Comment on above: Result Comment: Comm ent(NOTE)Satisfactory for evaluation. Endocervical and/or squamous metaplasticcells (endocervical component) are present. Performed By: #### L PRAS ####[facility] [address] [place] [address] Lab Director: Dr. Lauro Merino, Specimen # [id number] [facility] Comment on above: Performed By: #### L PRAS ####[facility] [address] [place] [address] Lab Director: Dr. Lauro Merino, . [facility] Comment on above: Result Comment: Comm ent(NOTE)The HPV DNA reflex criteria were not met with this specimen resulttherefore, no HPV testing was performed.No. of containers..01 CYTYC [facility] Performed By: #### L PRAS ####[facility] [address] [place] [address] Lab Director: Dr. Lauro Merino DO . . [facility] Comment on above: Performed By: #### L PRAS ####[facility] [address] [place] [address] Lab Director: Dr. Lauro Merino DO Vital Signs Date Time Vital Sign Value Performing Clinician Facility 08-12-2024 14:32-0500 Body weight 76.11 kg Eva Celso DO Work Phone: [facility] 08-12-2024 14:32-0500 Diastolic blood pressure 66 mm[Hg] Eva Celso DO Work Phone: [facility] 08-12-2024 14:32-0500 Systolic blood pressure 124 mm[Hg] Eva Celso DO Work Phone: [facility] 08-06-2024 15:49-0500 Body weight 76.11 kg Jeanna Meera PA Work Phone: [facility] 08-06-2024 15:49-0500 Diastolic blood pressure 70 mm[Hg] Jeanna Savannah PA Work Phone: [facility] 08-06-2024 15:49-0500 Systolic blood pressure 120 mm[Hg] Jeanna Meera PA Work Phone: [facility] 07-16-2024 11:01-0500 Body weight 75.75 kg Jeanna Savannah PA Work Phone: [facility] 07-16-2024 11:01-0500 Diastolic blood pressure 72 mm[Hg] Jeanna Meera PA Work Phone: [facility] 07-16-2024 11:01-0500 Systolic blood pressure 116 mm[Hg] Jeanna Meera PA Work Phone: [facility] 07-02-2024 10:02-0500 Body weight 75.93 kg Jeanna Meera PA Work Phone: [facility] 07-02-2024 10:02-0500 Diastolic blood pressure 70 mm[Hg] Jeanna Meera PA Work Phone: [facility] 07-02-2024 10:02-0500 Systolic blood pressure 112 mm[Hg] Jeanna Meera PA Work Phone: [facility] 06-18-2024 15:14-0500 Body weight 76.11 kg Jeanna Meera PA Work Phone: [facility] 06-18-2024 15:14-0500 Diastolic blood pressure 76 mm[Hg] Jeanna Savannah PA Work Phone: [facility] 06-18-2024 15:14-0500 Systolic blood pressure 114 mm[Hg] Jeanna OKNG Work Phone: [facility] 06-04-2024 11:00-0500 Body weight 75.3 kg Eva Celso DO Work Phone: [facility] 06-04-2024 11:00-0500 Diastolic blood pressure 72 mm[Hg] Eva Celso DO Work Phone: [facility] 06-04-2024 11:00-0500 Systolic blood pressure 118 mm[Hg] Eva Celso DO Work Phone: [facility] 05-07-2024 10:50-0400 Body weight 76.11 kg Jeanna KONG Work Phone: [facility] 05-07-2024 10:50-0400 Diastolic blood pressure 70 mm[Hg] Jeanna KONG Work Phone: [facility] 05-07-2024 10:50-0400 Systolic blood pressure 120 mm[Hg] Jeanna KONG Work Phone: [facility] 04-09-2024 09:14-0400 Body weight 73.94 kg Eva Celso DO Work Phone: [facility] 04-09-2024 09:14-0400 Diastolic blood pressure 72 mm[Hg] Eva Celso DO Work Phone: [facility] 04-09-2024 09:14-0400 Systolic blood pressure 120 mm[Hg] Eva Celso DO Work Phone: [facility] 03-27-2023 09:16-0400 Body height 157.5 cm Noni Patel [employer]ICATION[employer] SERGEANT[employer] Work Phone: [facility] 03-27-2023 09:16-0400 Body mass index (BMI) [Ratio] 29.26 kg/m2 Ami Hay [employer]ICATION[employer]GEANT[employer] Work Phone: [facility] 03-27-2023 09:16-0400 Body weight 72.58 kg Ami Hay [employer]ICATION[employer] SERGEANT[employer] Work Phone: [facility] [employer] [facility] 03-27-2023 09:16-0400 Diastolic blood pressure 64 mm[Hg] Ami Hay [employer]ICATION[employer] SERGEANT[employer] Work Phone: [facility] 03-27-2023 09:16-0400 Systolic blood pressure 110 mm[Hg] Ami Hay [employer]ICATION[employer] SERGEANT[employer] Work Phone: [facility] 03-19-2022 10:05-0400 Body height 157.5 cm Lola Kofi [employer]ICATION[employer] SERGEANT[employer] Work Phone: [facility] 03-19-2022 10:05-0400 Body mass index (BMI) [Ratio] 30.91 kg/m2 Lola Kofi [employer]ICATION[employer] SERGEANT[employer] Work Phone: [facility] [employer] [facility] 03-19-2022 10:05-0400 Body weight 76.66 kg Lola Kofi [employer]ICATION[employer] SERGEANT[employer] Work Phone: [facility] [employer] [facility] 03-19-2022 10:05-0400 Diastolic blood pressure 66 mm[Hg] Lola Kofi [employer]ICATION[employer] SERGEANT[employer] Work Phone: [facility] 03-19-2022 10:05-0400 Systolic blood pressure 122 mm[Hg] Lola Kofi [employer]ICATION[employer] SERGEANT[employer] Work Phone: [facility] [employer] [facility] 03-17-2021 13:57-0400 Body height 157.5 cm Lola Kofi [employer]ICATION[employer] SERGEANT[employer] Work Phone: [facility] 03-17-2021 13:57-0400 Body mass index (BMI) [Ratio] 28.9 kg/m2 Lola Kofi [employer] SERGEANT[employer] Work Phone: [facility] 03-17-2021 13:57-0400 Body weight 71.67 kg Lola Kofi [employer]GE[employer] Work Phone: [facility] 03-17-2021 13:57-0400 Diastolic blood pressure 76 mm[Hg] Lola Kofi [employer]GE[employer] Work Phone: [facility] 03-17-2021 13:57-0400 Systolic blood pressure 122 mm[Hg] Lola Kirby [employer]GE[employer] Work Phone: [facility] 02-01-2021 07:05-0400 Body height 157.5 cm Gerardo Doan MD Work Phone: [facility] 02-01-2021 07:05-0400 Body mass index (BMI) [Ratio] 29.07 kg/m2 Gerardo Doan MD Work Phone: [facility] 02-01-2021 07:05-0400 Body temperature 98.4 [degF] Gerardo Doan MD Work Phone: [facility] 02-01-2021 07:05-0400 Body weight 72.12 kg Gerardo Doan MD Work Phone: [facility] 02-01-2021 07:05-0400 Diastolic blood pressure 84 mm[Hg] Gerardo Doan MD Work Phone: [facility] 02-01-2021 07:05-0400 Heart rate 127 /min Gerardo Doan MD Work Phone: [facility] 02-01-2021 07:05-0400 Respiratory rate 18 /min Gerardo Doan MD Work Phone: [facility] 02-01-2021 07:05-0400 SaO2% (BldA) [Mass fraction] 99 % Gerardo Doan MD Work Phone: [facility] 02-01-2021 07:05-0400 Systolic blood pressure 130 mm[Hg] Gerardo Doan MD Work Phone: [facility] 01-17-2021 09:37-0400 Diastolic blood pressure 80 mm[Hg] Gerardo Doan MD Work Phone: [facility] 01-17-2021 09:37-0400 Heart rate 111 /min Gerardo Doan MD Work Phone: [facility] 01-17-2021 09:37-0400 Systolic blood pressure 130 mm[Hg] Gerardo Doan MD Work Phone: [facility] 01-17-2021 08:17-0400 Body height 157.5 cm Gerardo Doan MD Work Phone: [facility] 01-17-2021 08:17-0400 Body mass index (BMI) [Ratio] 28.74 kg/m2 Gerardo Doan MD Work Phone: [facility] 01-17-2021 08:17-0400 Body temperature 98.6 [degF] Gerardo Doan MD Work Phone: [facility] 01-17-2021 08:17-0400 Body weight 71.31 kg Gerardo Doan MD Work Phone: [facility] 01-17-2021 08:17-0400 Respiratory rate 18 /min Gerardo Doan MD Work Phone: [facility] 01-17-2021 08:17-0400 SaO2% (BldA) [Mass fraction] 99 % Gerardo Doan MD Work Phone: [facility] 03-15-2020 09:24-0400 BMI (Body Mass Index) 29.78 kg/m2 [facility] 03-15-2020 09:24-0400 Body Temperature 97.81 [degF] [facility] 03-15-2020 09:24-0400 Body weight 73.85 kg [facility] 03-15-2020 09:24-0400 BP Diastolic 62 mm[Hg] [facility] 03-15-2020 09:24-0400 BP Systolic 128 mm[Hg] [facility] 03-15-2020 09:24-0400 Height 157.5 cm [facility] 03-11-2019 14:45-0400 BMI (Body Mass Index) 28.9 kg/m2 [facility] 03-11-2019 14:45-0400 Body weight 71.67 kg [facility] 03-11-2019 14:45-0400 BP Diastolic 72 mm[Hg] [facility] 03-11-2019 14:45-0400 BP Systolic 120 mm[Hg] [facility] 03-11-2019 14:45-0400 Height 157.5 cm [facility] Encounters Encounter Date Encounter Type Care Provider Facility Start: 08-12-2024 End: 08-12-2024 flow sheet Eva Celso DO Work Phone: [facility] Comment on above: Third trimester preg niko; 36 weeks gestation of Start: 08-12-2024 End: 08-12-2024 ambulatory EVA CELSO Not Available Start: 08-12-2024 End: 08-12-2024 Bamboo flowsheet Eva Celso DO Work Phone: [facility] Start: 08-12-2024 End: 08-12-2024 Bamboo flowsheet Eva Celso DO Work Phone: [facility] Start: 08-06-2024 End: 08-06-2024 flow sheet Jeanna KONG Work Phone: [facility] Comment on above: 35 weeks gestation o f ; Third trimester ; Anxiety, generalized (CMS/HCC) Start: 08-06-2024 End: 08-06-2024 ambulatory JEANNA ESTES Not Available Start: 08-06-2024 End: 08-06-2024 Clinisync Result Encounter Eva Celso DO Work Phone: [facility] External Department Unsolicited Start: 08-06-2024 End: 08-06-2024 Clinisync Result Encounter Eva Celso DO Work Phone: [facility] External Department Unsolicited Start: 07-16-2024 End: 07-16-2024 Bamboo flowsheet Jeanna KONG Work Phone: [facility] Start: 07-16-2024 End: 07-16-2024 Bamboo flowsheet Jeanna KONG Work Phone: [facility] Start: 07-16-2024 End: 07-16-2024 flow sheet Jeanna KONG Work Phone: [facility] Comment on above: Third trimester preg niko; 32 weeks gestation of Start: 07-16-2024 End: 07-16-2024 ambulatory JEANNA ESTES Not Available Start: 07-02-2024 End: 07-02-2024 Bamboo flowsheet Jeanna KONG Work Phone: [facility] Start: 07-02-2024 End: 07-02-2024 Bamboo flowsheet Jeanna KONG Work Phone: [facility] Start: 07-02-2024 End: 07-02-2024 Periodic preventive med est patient 18-39 yrs Jeanna KONG Work Phone: [facility] Comment on above: Third trimester preg niko; 31 weeks gestation of ; Anemia during in third trimester Start: 07-02-2024 End: 07-02-2024 ambulatory JEANNA ESTES Not Available Start: 06-18-2024 End: 06-18-2024 flow sheet Jeanna KONG Work Phone: [facility] Comment on above: Third trimester preg niko; 28 weeks gestation of ; Anemia during in third trimester; Gestational diabetes mellitus (GDM), antepartum, gestational diabetes method of control unspecified; Elevated glucose tolerance test Start: 06-18-2024 End: 06-18-2024 ambulatory JEANNA ESTES Not Available Start: 06-18-2024 End: 06-18-2024 Bamboo flowsheet Jeanna KONG Work Phone: [facility] Start: 06-18-2024 End: 06-18-2024 Bamboo flowsheet Jeanna KONG Work Phone: [facility] Start: 06-18-2024 ambulatory EVA [facility]cdonald on [facility] Start: 06-04-2024 End: 06-04-2024 Bamboo flowsheet Eva Houston DO Work Phone: [facility] Start: 06-04-2024 End: 06-04-2024 Bamboo flowsheet Eva Celso DO Work Phone: [facility] Start: 06-04-2024 End: 06-04-2024 flow sheet Eva Celso DO Work Phone: [facility] Comment on above: Second trimester pre gnancy; 26 weeks gestation of ; Elevated glucose tolerance test; Antepartum anemia Start: 06-04-2024 End: 06-04-2024 ambulatory EVA CELSO Not Available Start: 05-28-2024 ambulatory [facility] Start: 05-07-2024 End: 05-07-2024 Bamboo flowsheet Jeanna KONG Work Phone: [facility] Start: 05-07-2024 End: 05-07-2024 Bamboo flowsheet Jeanna KONG Work Phone: [facility] Start: 05-07-2024 End: 05-07-2024 ambulatory [...] encounter procedure Eva Celso DO Work Phone: [facility] Start: 04-09-2024 End: 04-09-2024 Periodic preventive med est patient 18-39 yrs Eva Carolinao DO Work Phone: [facility] Comment on above: Well woman exam with routine gynecological exam; Exposure to STD; Second trimester ; Need for maternal serum alpha-protein (MSAFP) screening; Screening, , for anatomic survey Start: 04-09-2024 End: 04-09-2024 ambulatory EVA CAROLINAO Not Available Start: 03-12-2024 End: 03-12-2024 ambulatory JEANNA ESTES Not Available Start: 02-13-2024 End: 02-13-2024 ambulatory EVA CELSO Not Available Start: 02-06-2024 ambulatory EVA CELSO Erika Tamara [facility] Start: 01-23-2024 End: 01-23-2024 ambulatory EVA CELSO Not Available Start: 03-27-2023 End: 03-27-2023 Patient encounter status Noni Patel APRN-[employer] Work Phone: [facility] Work Phone: Start: 03-27-2023 End: 03-27-2023 Periodic preventive med est patient 18-39 yrs Noni Patel [employer] SERGE[employer] Work Phone: [facility] [employer] RE[employer]ISHER Comment on above: Encounter for gyneco logical examination without abnormal finding (Primary Dx); Screening for cervical cancer; Encounter for surveillance of contraceptive pills Start: 03-19-2022 End: 03-19-2022 Patient encounter status Lola Kirby [employer] SERGE[employer]ER Work Phone: [facility] [employer]ISH[employer] Start: 03-19-2022 End: 03-19-2022 Periodic preventive med est patient 18-39 yrs Lola Kirby [employer] SERGE[employer]ER Work Phone: [facility] [employer] REFINISH[employer] Comment on above: Encounter for gyneco logical examination without abnormal finding (Primary Dx); Initiation of oral contraception Start: 03-17-2021 End: 03-17-2021 Patient encounter status Lola Kirby [employer] SERGE[employer]RIER Work Phone: [facility] AUTOMOTIVE REFINISHER Start: 03-17-2021 End: 03-17-2021 Periodic preventive med est patient 18-39 yrs Lola Kirby [employer] SERGE[employer]TR[employer] DRIER Work Phone: [employer]OMOTIVE REFINISHER Comment on above: Encounter for gyneco logical examination without abnormal finding (Primary Dx); Encounter for surveillance of contraceptive pills Start: 02-17-2021 End: 02-17-2021 Subsequent hospital visit by physician Gerardo Doan MD Work Phone: [employer] Comment on above: Arrived Start: 02-01-2021 End: 02-01-2021 Office outpatient visit 25 minutes Gerardo Doan MD Work Phone: [facility] Comment on above: Murmur (Primary Dx); History of COVID-19; Abnormal EKG; Generalized anxiety disorder; Fluid level behind tympanic membrane of both ears; Leukocytosis, unspecified type Start: 01-27-2021 End: 01-27-2021 Subsequent hospital visit by physician Gerardo Doan MD Work Phone: [employer] Comment on above: Arrived Start: 01-17-2021 End: 01-17-2021 Office outpatient visit 25 minutes Gerardo Doan MD Work Phone: [facility] Comment on above: Lightheadedness (Jaycee mandi Dx); Screening for condition; BMI 28.0-28.9,adult; Irregular periods/menstrual cycles; Menorrhagia with regular cycle; Fluid level behind tympanic membrane of both ears; Iron deficiency anemia due to chronic blood loss Start: 03-15-2020 End: 03-15-2020 Periodic preventive med est patient 18-39 yrs Lola Kirby Work Phone: [employer]OM[employer] REFINISH[employer] Comment on above: Encounter for gyneco logical examination without abnormal finding (Primary Dx); Encounter for surveillance of contraceptive pills Start: 03-11-2019 End: 03-11-2019 Periodic preventive med est patient 18-39 yrs Lola Kirby Work Phone: [employer]OMOTIVE REFINISHER Comment on above: Encounter for gyneco logical examination without abnormal finding (Primary Dx); Encounter for surveillance of contraceptive pills Start: 11-19-2018 End: 11-19-2018 Patient encounter procedure Other Other [facility] [place] Start: 04-25-2018 Patient encounter EMILIANO Seay [facility] Start: 02-19-2018 Patient encounter EMILIANO Seay [facility] Start: 02-13-2018 Patient encounter EMILIANO Seay [facility] Start: 02-15-2017 End: 02-16-2017 [facility] Procedures Date Procedure Procedure Detail Performing Clinician Start: 08-12-2024 Urnls dip stick/tabl et rgnt non-auto w/o micrscp Eva Celso DO Work Phone: Start: 08-06-2024 Urnls dip stick/tabl et rgnt non-auto w/o micrscp Jeanna KONG Work Phone: Start: 08-06-2024 ALL CBC WITH AUTO DIFF Eva Celso DO Work Phone: Start: 07-16-2024 Urnls dip stick/tabl et rgnt [...] Start: 04-09-2024 URETHRITIS/DISCHARGE PLUS VAGINITIS (HTRX) Eva Celso DO Work Phone: Start: 04-09-2024 Urnls dip stick/tabl et rgnt non-auto w/o micrscp Eva Celso DO Work Phone: Start: 04-09-2024 IGP,APTIMA HPV,AGE GDLN Eva Celso DO Work Phone: Start: 03-17-2021 PAP IG, RFX HPV ASCU Sh iggy Kirby [employer] SERGE[employer] D[employer]ER Work Phone: Start: 02-17-2021 Echo tthrc r-t [...] Detail Author Start: 04-19-2027 Tetanus vaccination TETANUS [facility] Start: 08-20-2024 End: 08-20-2024 Patient encounter procedure 08/20/2024 9:50 AM EST Routine [facility] [address] [place] [phone] Jeanna Estes PA [address] [place] [address] [facility] Start: 08-12-2024 End: 08-12-2024 Patient encounter procedure [facility] Comment on above: Arrived Start: 08-06-2024 End: 08-06-2024 Patient encounter procedure 08/06/2024 3:50 PM EST Routine [facility] [address] [facility] [place] [phone] Jeanna Estes PA [address] [place] [address] [facility] Start: 08-06-2024 End: 08-06-2025 CULTURE, GROUP B STREP WITH SUSCEPTIBLITY CULTURE, GROUP B STREP WITH SUSCEPTIBLITY Lab Routine 35 weeks gestation of Third trimester Expected: 08/06/2024, Expires: 08/06/2025 [facility] Work Phone: Comment on above: Expected: 08/06/2024, Expires: Start: 07-16-2024 End: 07-16-2024 Patient encounter procedure 07/16/2024 11:00 AM EST Routine [facility] [address] [place] [phone] Jeanna Estes PA [address] [place] [address] Arrived [facility] Comment on above: Arrived Start: 07-02-2024 End: 07-02-2025 Transferrin [Mass/volume] in Serum or Plasma Transferrin Lab Routine Anemia during in third trimester Expected: 07/02/2024 (Approximate), Expires: 07/02/2025 [facility] Healthcare Comment on above: Expected: 07/02/2024 (Approximate), [...] mellitus screening Expected: 05/07/2024 (Approximate), Expires: 05/07/2025 [facility] Work Phone: Comment on above: Expected: 05/07/2024 (Approximate), Expi res: 05/07/2025 Start: 05-07-2024 End: 05-07-2025 Measurement of glucose 1 hour after glucose challenge for glucose tolerance test Glucose tolerance, 1 hour Lab Routine Diabetes mellitus screening Expected: 05/07/2024 (Approximate), Expires: 05/07/2025 [facility] Comment on above: Expected: 05/07/2024 (Approximate), Expi res: 05/07/2025 Start: 05-07-2024 End: 05-07-2024 Patient encounter procedure 05/07/2024 10:30 AM EDT Routine [facility] OB [address] [facility] [place] [address] Jeanna Estes PA [address] [place], [place] [id number] [facility] Start: 04-23-2024 End: 04-23-2024 Professional / ancillary services management 04/23/2024 8:00 AM EDT Ancillary Procedure [facility] [address] [place] [address] [facility] Start: 04-09-2024 End: 05-09-2024 Alpha fetoprotein, maternal Alpha fetoprotein, maternal Lab Routine Need for maternal serum alpha-protein (MSAFP) screening Expected: 04/09/2024 (Approximate), Expires: 05/09/2024 [facility] Comment on above: Expected: 04/09/2024 (Approximate), Expi res: 05/09/2024 Start: 04-09-2024 End: 04-09-2025 US for US OB ANATOMY SINGLE W US OB CERVICAL LENGTH Imaging Routine Screening, , for anatomic survey Expected: 04/09/2024 (Approximate), Expires: 04/09/2025 [facility] Comment on above: Expected: 04/09/2024 (Approximate), Expi res: 04/09/2025 Start: 04-09-2024 End: 04-09-2024 Patient encounter procedure 04/09/2024 8:50 AM EDT Routine [facility] [address] [place] [phone] Eva Houston, DO [address] [facility] [place] [address] Arrived [facility] Comment on above: Arrived Start: 04-01-2024 End: 04-01-2024 Patient encounter procedure 04/01/2024 8:50 AM EDT Office Visit [facility] AUTOMOTIVE REFINISHER [address] [place] [phone] Noni Patel, [employer] SERGE[employer]ER [address] [place] [address] [phone] [facility] AUTOMOTIVE REFINISHER Start: 03-27-2024 Screening for malignant neoplasm of cervix CERVICAL CANCER SCREENING DISCUSSION [facility] Start: 03-29-2023 Influenza [facility] Start: 03-21-2023 End: 03-21-2023 Patient encounter procedure 03/21/2023 Office Visit [employer]OMOT[employer] REFINISHER Lola Kirby, [employer] SERGEANT[employer]TRAY DRIER [id number] [place] [address] [facility] AUTOMOTIVE REFINISHER Start: 03-19-2023 Screening for malignant neoplasm of cervix CERVICAL CANCER SCREENING DISCUSSION [facility] Start: 03-29-2022 Influenza vaccination INFLUENZA VACCINE (#1) [employer] stem Start: 03-23-2022 End: 03-23-2022 Patient encounter procedure 03/23/2022 Office Visit AUTOMOTIVE REFINISHER Lola Kirby, [employer] SERGEANT[employer] DRIER [id number] [place] [address] [facility] AUTOMOTIVE REFINISHER Start: 03-17-2022 Screening for malignant neoplasm of cervix CERVICAL CANCER SCREENING DISCUSSION [facility] Start: 03-29-2021 Influenza vaccination [facility] Suzie m Start: 03-17-2021 End: 03-17-2021 Patient encounter procedure 03/17/2021 Office Visit AUTOMOTIVE REFINISHER Lola Kirby, [employer] SERGEANT[employer]TRAY DRIER [id number] [place] [address] [facility] AUTOMOTIVE REFINISHER Start: 03-17-2021 End: 03-17-2021 Office Visit 03/17/2021 Office Visit AUTOMOTIVE REFINISHER Lola Kirby, [employer] SERGEANT[employer]TRAY DRIER [id number] [place] [address] [facility] AUTOMOTIVE REFINISHER Start: 03-15-2021 Screening for malignant neoplasm of cervix CERVICAL CANCER SCREENING DISCUSSION [facility] Start: 02-28-2021 End: 02-28-2021 Patient encounter procedure 02/28/2021 Office Visit Family Medicine Gerardo Doan MD [address] [facility] [phone] [facility] Start: 02-01-2021 End: 02-01-2022 Complete blood count with white cell differential, automated CBC, EDIF, PLATELET Lab Routine Leukocytosis, unspecified type Expected: 02/01/2021, Expires: 02/01/2022 [facility] Comment on above: Expected: 02/01/2021, Expires: 2 Start: 02-01-2021 End: 02-01-2022 Exercise stress echocardiography ECHOCARDIOGRAM TREADMILL STRESS TEST Stress Echocardiography Routine Murmur History of COVID-19 Abnormal EKG Expected: 02/01/2021, Expires: 02/01/2022 [facility] Comment on above: Expected: 02/01/2021, Expires: 2 Start: 02-01-2021 End: 02-01-2021 Patient encounter procedure 02/01/2021 Office Visit Family Medicine Gerardo Doan MD [address] [facility] [place] [address] [phone] [facility] Start: 01-17-2021 End: 01-17-2022 Standard ECG ECG ECG Routine Lightheadedness Expected: 01/17/2021, Expires: 01/17/2022 [facility] [employer] [facility] Comment on above: Expected: 01/17/2021, Expires: 2 Start: 06-15-2020 End: 03-15-2021 [employer] CYT[employer] NETWORK ENGINEER, LIQUID BASED [employer] CYT[employer] NETWORK ENGINEER, LIQUID BASED Cytology Routine Encounter for gynecological examination without abnormal finding Expected: 06/15/2020, Expires: 03/15/2021 [facility] [employer] [facility] Comment on above: Expected: 06/15/2020, Expires: 1 Start: 03-29-2020 Influenza vaccination [facility]FLUENZA VACCINE (#[facility]) [facility] Start: 03-11-2020 Screening for malignant neoplasm of cervix CERVICAL CANCER SCREENING DISCUSSION [facility] [employer] [facility] Start: 03-29-2019 Influenza vaccination [facility] Start: 03-11-2019 End: 03-11-2020 [employer] CYT[employer] NETWORK ENGINEER, LIQUID BASED [employer] CYT[employer] NETWORK ENGINEER, LIQUID BASED Cytology Routine Encounter for gynecological examination without abnormal finding Expected: 03/11/2019, Expires: 03/11/2020 [facility] [employer] Comment on above: Expected: 03/11/2019, Expires: 0 Start: 02-20-2019 End: 02-20-2019 Office Visit 02/20/2019 Office Visit AUTOMOTIVE REFINISHER Lola Kirby, [employer] SERGEANT-TRAY DRIER [id number] [place] [address] [phone] [facility] AUTOMOTIVE REFINISHER Start: 02-18-2019 Screening for malignant neoplasm of cervix PAP SMEAR DISCUSSION [employer] Start: 02-15-2018 Screening for malignant neoplasm of cervix PAP SMEAR DISCUSSION [employer] Start: 01-26-2016 Tetanus vaccination TETANUS [facility] Start: 2013 Third diphtheria, tetanus and acellular pertussis (DTaP) vaccination [facility]ADULT) [facility] Start: 2010 Screening for Chlamydia trachomatis CHLAMYDIA SCREEN [employer] [facility] Start: 2009 HIV screening HIV SCREENING DISCUSSION [employer] Start: 11-09-2007 HIV screening HIV SCREENING DISCUSSION [facility] Start: 2006 COVID-19 VACCINE (1) COVID-19 VACCINE (1) [facility] Start: 05-10-1995 COVID-19 VACCINE (#1) COVID-19 VACCINE (#1) [facility] Start: 1994 GONORRHEA SCREEN GONORRHEA SCREEN [facility] Start: 1994 Hepatitis C antibody, confirmatory test HEPATITIS C VIRUS SCREENING [facility] Start: 1994 Hepatitis C screening HEPATITIS C VIRUS SCREENING [facility] CBC panel - Blood by Automated count CBC Lab Routine Anemia during in third trimester Ordered: 06/18/2024 [facility] [email or web address] Work Phone: Comment on above: Ordered: 06/18/2024 CHLAMYDIA TRACHOMATI S (GENITO/STI) CHLAMYDIA TRACHOMATIS (GENITO/STI) Lab Routine Exposure to STD Ordered: 04/09/2024 [facility] Comment on above: Ordered: 04/09/2024 Cytology Cervical or vaginal smear or scraping study Pap Smear Pathology and Cytology Routine Well woman exam with routine gynecological exam Ordered: 04/09/2024 [facility] Comment on above: Ordered: 04/09/2024 Ferritin [Mass/volum e] in Serum or Plasma Ferritin Lab Routine Anemia during in third trimester Ordered: 07/02/2024 [facility] [email or web address] Work Phone: Comment on above: Ordered: 07/02/2024 Neisseria gonorrhoea e DNA [Presence] in Unspecified specimen by LINO with probe detection Neisseria gonorrhea DNA probe, direct Lab Routine Exposure to STD Ordered: 04/09/2024 [facility] [email or web address] Comment on above: Ordered: 04/09/2024 PAP IG, RFX HPV ASCU PAP IG, RFX HPV ASCU LAB SEND OUTS [facility] [employer] [employer] [facility] PAP IG, RFX HPV ASCU PAP IG, RFX HPV ASCU Cytology Routine 03/17/2021 1:55 PM [facility] [employer] [facility] Work Phone: PAP IG, RFX HPV ASCU PAP IG, RFX HPV ASCU Cytology Routine 03/19/2022 10:[facility] [employer] [facility] PAP IG, RFX HPV ASCU PAP IG, RFX HPV ASCU Cytology Routine 03/27/2023 9:25 AM EDT [facility] SURESWAB(R) ADVANCED VAGINITIS PLUS, TMA SURESWAB(R) ADVANCED VAGINITIS PLUS, TMA Pathology and Cytology Routine Exposure to STD Ordered: 04/09/2024 [facility] Work Phone: Comment on above: Ordered: 04/09/2024 Immunizations Immunization Date Immunization Notes Care Provider Pedro rooney 05-20-2019 influenza virus vacc ine, unspecified formulation Lola Kirby [facility] 05-09-2016 influenza virus vacc ine, unspecified formulation Other Other [facility] 04-24-2012 meningococcal polysaccharide (groups A, C, Y and W-135) diphtheria toxoid conjugate vaccine (MCV4P) Other Other [facility] 09-02-2007 human papilloma viru s vaccine, bivalent Other Other [facility] 05-02-2007 human papilloma viru s vaccine, bivalent Other Other [facility] 02-11-2007 human papilloma viru s vaccine, bivalent Other Other [facility] 02-11-2007 meningococcal polysaccharide (groups A, C, Y and W-135) diphtheria toxoid conjugate vaccine (MCV4P) Other Other [facility] 02-11-2007 varicella virus vaccine Other Other [facility] 01-25-2006 tetanus toxoid, redu cate diphtheria toxoid, and acellular pertussis vaccine, adsorbed Other Other [facility] 03-03-2001 varicella virus vaccine Other Other [facility] 11-14-1999 measles, mumps and r ubella virus vaccine Other Other [facility] 06-15-1996 diphtheria, tetanus toxoids and acellular pertussis vaccine Other Other [facility] 03-10-1996 haemophilus influenz ae type b vaccine, conjugate unspecified formulation Other Other [facility] 03-10-1996 measles, mumps and r ubella virus vaccine Other Other [facility] 08-13-1995 hepatitis B vaccine, pediatric or pediatric/adolescent dosage Other Other [facility] 04-11-1995 poliovirus vaccine, inactivated Other Other [facility] 02-01-1995 hepatitis B vaccine, pediatric or pediatric/adolescent dosage Other Other [facility] 1994 hepatitis B vaccine, pediatric or pediatric/adolescent dosage Other Other [facility] Payers Date Payer Category Payer Private Health Insurance [employer] [id number] 2021 Unknown [id number] 2021 Unknown [id number] 2016 Unknown 2014 Unknown [id number] 1994 Unknown [id number]. 983 1994 Unknown [id number] [id number]. 983 1994 Unknown [id number] [id number]. 983 1994 Unknown [id number] [id number]. 9 1994 Unknown [id number] [id number]. 1258 1994 Unknown [id number] [id number]. 9 1994 Unknown [id number] [id number]. 1258 1994 Unknown [id number] [id number]. 9 1994 Unknown [id number] 2.16840.1.286836.3.579.2. 9 1994 Unknown [id number] [id number]. 1259 1994 Unknown [id number] [id number]. 1259 1994 Unknown [id number] [id number]. 1259 1994 Unknown [id number] [id number]. 1259 1994 Unknown [id number]. 1259 Social History Date Type Detail Facility Start: 03-15-2020 End: 03-27-2023 Tobacco smoking status PAIS Never smoker [facility] Start: 03-15-2020 End: 03-27-2023 Tobacco use and exposure Never used [facility] Start: 03-15-2020 End: 03-27-2023 Alcohol intake Current drinker of alcohol (finding) [facility] Start: 02-03-2020 End: 03-15-2020 History SDOH Alcohol Frequency 2 [facility] Start: 02-18-2018 Alcohol Comment consumes rarely [facility] Start: 1994 Sex Assigned At Not on file [facility] [employer] Start: 03-11-2019 End: 03-27-2023 Alcohol intake Yes [facility] Exposure to SARS-CoV -2 (event) Not sure [facility] Start: 03-15-2020 End: 03-27-2023 History of Social function [facility] How often to you hav e a drink containing alcohol? Monthly or less [facility] Average Number of Drinks Not on file [facility] Start: 01-03-2024 Gender identity Identifies as female gender (finding) [facility] Tobacco smoking stat [facility] Tobacco smoking consumption unknown [facility] Start: 12-13-2023 [facility] Start: 1994 Sex assigned at Female [facility] Medical Equipment Procedure Code Equipment Code Equipment Origin al Text Equipment Identifier Dates 1 strip by In Vi tro route Daily Use in the morning prior to breakfast, 1 hour after each meal for a total of 4times daily. [id number] Start: 06-18-2024 End: 07-18-2024 1 each by In Vit ro route Daily Use to check FSBS four times daily [id number] Start: 06-18-2024 End: 07-18-2024 Goals Date Patient Goal Desired Activity /State Personal health goal Comment on above: 1. The patient will have orthotics that allow her to return to all normal activities with minimal to no restriction d/t right foot and knee pain. Clinical Notes 01-17-2021 to 08-12-2024 Alinashelby Valentino LPN - 08/12/2024 2:20 PM DILAN Desai - 08/06/2024 3:50 PM Annetta Wood MA - 07/16/2024 11:00 AM DILAN Desai - 07/02/2024 9:30 AM DILAN Desai - 06/18/2024 2:50 PM EST Note Date & Type Note Facility 08-12-2024 History of Presen t illness Narrative Reason [...] meal for a total of 4times daily. sertraline (ZOLOFT) 50 mg, Oral, Daily ALLERGIES No Known Allergies PROBLEMS Active Ambulatory Problems Diagnosis Date Noted Antepartum anemia 06/04/2024 Elevated glucose tolerance test 06/04/2024 26 weeks gestation of 06/04/2024 Second trimester 06/04/2024 35 weeks gestation of 08/06/2024 Third trimester 08/06/2024 Resolved Ambulatory Problems Diagnosis Date Noted No [...] appearance. She is well-developed. Genitourinary: Vulva normal. Cardiovascular: Rate and Rhythm: Normal rate and [...] nursing note reviewed. Exam conducted with a home health lvn present. Vitals: There is no height or weight on file to calculate BMI. BP: 124/66 Patient's last menstrual period was 11/29/2023. ASSESSMENT & PLAN ICD-10-CM 1. Third trimester Z34.93 2. 36 weeks gestation of Z3A.36 POCT urinalysis dipstick manually resulted Return OB: Patient presents today for a routine obstetrics appointment. Patient is currently 36w5d . Patient states she is doing well but has complaints of being tired due to current . Patient has verbalizes frequent movement. labor precautions was discussed/given and patient was instructed to perform kick counts three times a day. Orders Placed This Encounter Procedures POCT urinalysis dipstick manually resulted Follow Up: Patient is to return to office in 1 week for routine OB appointment. Documented by Alina Valentino LPN on behalf of: Eva Houston DO documented in this encounter [facility] 08-06-2024 History of Presen t illness Narrative Reason [...] Once as needed Blood Glucose Monitoring Suppl ([employer] Glucometer) w/Device kit 1 kit, Does not apply, Daily, Use four times daily to check FSBS. In the morning prior to breakfast & 1 hour after each meal for a total of 4times daily. sertraline (ZOLOFT) 50 mg, Oral, Daily ALLERGIES No Known Allergies PROBLEMS Active Ambulatory Problems Diagnosis Date Noted Antepartum anemia 06/04/2024 Elevated glucose tolerance test 06/04/2024 26 weeks gestation of 06/04/2024 Second trimester 06/04/2024 35 weeks gestation of 08/06/2024 Third trimester 08/06/2024 Resolved Ambulatory Problems Diagnosis Date Noted No [...] nursing note reviewed. Exam conducted with a home health lvn present. Vitals: There is no height or weight on file to calculate BMI. BP: 120/70 Patient's last menstrual period was 11/29/2023. ASSESSMENT & PLAN ICD-10-CM 1. 35 weeks gestation of Z3A.35 CULTURE, GROUP B STREP WITH SUSCEPTIBLITY CULTURE, GROUP B STREP WITH SUSCEPTIBLITY POCT urinalysis dipstick manually resulted 2. Third trimester Z34.93 CULTURE, GROUP B STREP WITH SUSCEPTIBLITY CULTURE, GROUP B STREP WITH SUSCEPTIBLITY POCT urinalysis dipstick manually resulted 3. Anxiety, generalized (CMS/HCC) F41.1 sertraline (Zoloft) 50 MG tablet Patient is doing well but has complaints of being tired and having maternal discomfort due to . Patient verbalized frequent movement and was instructed to perform kick counts three times per day. labor precautions were given, LARC consent was signed/declined, and GBS was obtained. Cervical check was performed and patient is 1cm dilated. Patient to continue on the Profe at this time. Orders Placed This Encounter Procedures CULTURE, GROUP B STREP WITH SUSCEPTIBLITY POCT urinalysis dipstick manually resulted Follow Up: Patient is to return to office in 1 week for routine OB appointment Documented by Stacie Woodard LPN on behalf of: DILAN Mcadams documented in this encounter [facility] 07-16-2024 History of Presen t illness Narrative [...] Once as needed Blood Glucose Monitoring Suppl ([employer] Glucometer) w/Device kit 1 kit, Does not [...] nursing note reviewed. Exam conducted with a home health lvn present. Vitals: There is no height or [...] would like to have infusions completed at [facility]. Orders Placed This Encounter Procedures POCT urinalysis dipstick manually resulted Follow Up: Patient is to return to office in 2 week for routine OB appointment. Documented by Bree Wood MA on behalf of: DILAN Mcadams documented in this encounter [facility] 07-02-2024 History of Presen t illness Narrative [...] to drop, will send prior auth to erika. Pt given ferritin orders today Orders Placed This Encounter Procedures Ferritin Transferrin POCT urinalysis dipstick manually resulted Follow Up: Patient is to return to office in 2 week for routine OB appointment. Documented by DILAN Mcadams on behalf of: DILAN Mcadams documented in this encounter [facility] 06-18-2024 History of Presen t illness Narrative [...] Once as needed Blood Glucose Monitoring Suppl ([employer] Glucometer) w/Device kit 1 kit, Does not [...] of: DILAN Mcadams documented in this encounter [facility] 06-04-2024 History of Presen t illness Narrative [...] nursing note reviewed. Exam conducted with a home health lvn present. Vitals: There is no height or [...] Eva Houston DO documented in this encounter [facility] 05-07-2024 History of Presen t illness Narrative [...] nursing note reviewed. Exam conducted with a home health lvn present. Vitals: There is no height or [...] of: DILAN Mcadams documented in this encounter [facility] 04-09-2024 History of Presen t illness Narrative [...] nursing note reviewed. Exam conducted with a home health lvn present. Vitals: There is no height or [...] Eva Houston DO documented in this encounter [facility] 03-27-2023 History of Presen t illness Narrative [...] for cervical cancer Pap collected - [facility] [facility], LIQUID BASED 3. Encounter for surveillance of contraceptive pills Doing well tri-cycling. No contraindicating dx. I will send in new script with refills to pharmacy of patient's choice. Patient advised to contact the office with any concerns. Patient voiced understanding of all instructions. Return in about 1 year (around 03/27/2024) for Annual with Noni lew. Thank you. . documented in this encounter [facility] 03-19-2022 History of Presen t illness [...] Pap w/ HPV rfx ASCUS ordered. - [facility]UX NETWORK ENGINEER, LIQUID BASED 2. Initiation of oral contraception - norgestimate-ethinyl estradiol 0.25-35 MG-MCG tablet; Take 1 tablet by mouth daily. Dispense: 84 tablet; Refill: 3 Return in about 1 year (around 03/19/2023) for Annual wellness. documented in this encounter [facility] 03-17-2021 History of Presen t illness [...] Social Gatherings with Friends and Family: Attends Congregational Services: Active Member of Clubs or Organizations: [...] Pap w/ HPV rfx ASCUS ordered. - [facility] NETWORK ENGINEER, LIQUID BASED 2. Encounter for surveillance of contraceptive pills - levonorgestrel-ethinyl estradiol (Quasense) 0.15-0.03 MG tablet; Take one tablet by mouth daily. Dispense: 91 tablet; Refill: 3 Return in about 1 year (around 03/17/2022) for Annual wellness. documented in this encounter [facility] 02-01-2021 History of Presen t illness [...] another episode of fainting while shopping at [employer]. She has a hx of iron deficiency, she has not been taking iron regularly, so she restarted this for one week. She notes that she was feeling pretty good again. She felt that she was tired all of the time, had another episode while at [employer] Saturday01/15/21. She has a high resting heart [...] Social Gatherings with Friends and Family: Attends Congregational Services: Active Member of Clubs or Organizations: [...] Assessment: Physical Exam documented in this encounter [facility] 01-17-2021 History of Presen t illness Narrative Citlali Dione Blancas comes in today with the following concerns: Chief Complaint Patient presents with Rapid Heart Rate Pt notes that starting after her last period 12/06/2020. She has had to trial multiple forms/brands of OCP's because of heavy periods/menorrhagia and recalls of OCP's. 2 weeks ago she was feeling great, and had another episode of fainting while shopping at [employer]. She has a hx of iron deficiency, she has not been taking iron regularly, so she restarted this for one week. She notes that she was feeling pretty good again. She felt that she was tired all of the time, had another episode while at [employer] Saturday01/15/21. She has a high resting heart [...] Social Gatherings with Friends and Family: Attends Congregational Services: Active Member of Clubs or Organizations: [...] Assessment: Physical Exam documented in this encounter [facility] 01-17-2021 Miscellaneous Notes Addended by: MAKAYLA KILGORE on: 01/17/2021 03:15 PM Modules accepted: Orders documented in this encounter [facility] Evaluation note Diagnosis Lightheadedness- Primary Dizziness [...] blood loss (chronic) [facility] Lightheadedness Dizziness and giddiness [facility] Diagnosis Murmur- Primary Undiagnosed cardiac murmurs History of COVID-19 Abnormal EKG Nonspecific abnormal electrocardiogram (ECG) (EKG) Generalized anxiety disorder Fluid level behind tympanic membrane of both ears Leukocytosis, unspecified type [facility] Diagnosis Murmur Undiagnosed cardiac murmurs History of COVID-19 Abnormal EKG Nonspecific abnormal electrocardiogram (ECG) (EKG) [facility] Diagnosis Encounter for gynecological examination without abnormal finding- Primary Routine gynecological examination Encounter for surveillance of contraceptive pills Surveillance of previously prescribed contraceptive pill [facility] Diagnosis Encounter for gynecological examination without abnormal finding- Primary Routine gynecological examination Initiation of oral contraception [facility] Diagnosis Encounter for gynecological examination without abnormal finding- Primary Routine gynecological examination Screening for cervical cancer Screening for malignant neoplasm of the cervix Encounter for surveillance of contraceptive pills Surveillance of previously prescribed contraceptive pill [facility] Diagnosis 22 weeks gestation of Second trimester state, incidental Diabetes mellitus screening Screening for diabetes mellitus documented in this encounter [facility]* Diagnosis Second trimester state, incidental 26 weeks gestation of Elevated glucose tolerance test Impaired glucose tolerance test Antepartum anemia documented [facility]* Diagnosis Third trimester state, incidental 28 weeks gestation of Anemia during in third trimester Gestational diabetes mellitus (GDM), antepartum, gestational diabetes method of control unspecified Elevated glucose tolerance test Impaired glucose tolerance test documented in this encounter [facility] HealthcareEvaluation note* Diagnosis Third trimester state, incidental 31 weeks gestation of Anemia during in third trimester documented [facility]* Diagnosis Well woman exam with routine gynecological exam Routine gynecological examination Exposure to STD Second trimester state, incidental Need for maternal serum alpha-protein (MSAFP) screening Screening, , for anatomic survey Encounter for anatomic survey documented [facility] Diagnosis Third trimester state, incidental 32 weeks gestation of documented in [facility]* Diagnosis 35 weeks gestation of Third trimester state, incidental Anxiety, generalized (CMS/HCC) documented [facility]* Diagnosis Third trimester state, incidental 36 weeks gestation of documented in this encounter [facility] Summary Purpose Family History No Family History Records FoundNo Family History Records FoundNo Family History Records FoundNo Family History Records Found Advance Directives No Advanced Directives Records FoundNo Advanced Directives Records FoundNo Advanced Directives Records FoundNo Advanced Directives Records Found History of Present Illness * Lola Kirby, [employer] - 03/15/2020 9:30 AM EDT History of [...] file Gets together: Not on file Attends alevism service: Not on file Active member of [...] w/ HPV rfx ASCUS ordered - [facility], LIQUID BASED; Future 2. Encounter for surveillance [...] file Gets together: Not on file Attends alevism service: Not on file Active member of [...] w/ HPV rfx ASCUS ordered - [facility] [employer], LIQUID BASED; Future 2. Encounter for surveillance [...] Procedures ECG Gerardo Doan MD [address] [place] [address] Status Reason Specialty Diagnoses / Procedures Referred By Contact Referred To Contact Auth Not Needed Cardiovascular Medicine Diagnoses Murmur History of COVID-19 Abnormal EKG Procedures ECHOCARDIOGRAM TREADMILL STRESS TEST NM ECHO TTHRC R-T 2D W/WO M-MODE REST&STRS CONT ECG NM DOPPLER ECHO HEART,LIMITED,F/ U NM DOPPLER COLOR FLOW VELOCITY MAP Gerardo Doan MD [address] [place] [facility] [place] [address] [facility] [address] [place] [address] Status Reason Specialty Diagnoses / Procedures Referred By Contact Referred To Contact Closed Cardiovascular Medicine Diagnoses Murmur History of COVID-19 Abnormal EKG Procedures ECHOCARDIOGRAM TREADMILL STRESS TEST NM ECHO TTHRC R-T 2D W/WO M-MODE REST&STRS CONT ECG NM DOPPLER ECHO HEART,LIMITED,F/U NM DOPPLER COLOR FLOW VELOCITY MAP Gerardo Doan MD [address] [place] [facility] [place] [address] [facility] [address] [place] [address] Additional Source Comments INFORMATION SOURCE (unrecogn ized section and content) DATE CREATED AUTHOR 01/22/2018 [facility] DATE CREATED AUTHOR AUTHOR'S ORGANIZ ATION 05/27/2018 [facility] DATE CREATED AUTHOR AUTHOR'S ORGANIZ ATION 07/17/2024 [facility] DATE CREATED AUTHOR AUTHOR'S ORGANIZ ATION 08/15/2024 [facility] EPIC Reason for Visit (unrecogniz ed section and content) Reason Comments Annual Exam Pap 03/11/19 wnl Reason Comments Annual Exam Pap 02/18/18 wnl Want s to discuss ocp Reason Comments Rapid Heart Rate Status Reason Specialty Diagnoses / Procedures Referred By Contact Referred To Contact New Request Diagnoses Lightheadedness Procedures ECG Gerardo Doan MD [address] [place] [facility] [place] [address] Reason Comments Dizziness 2 week f/u Status Reason Specialty Diagnoses / Procedures Referred By Contact Referred To Contact Closed Cardiovascular Medicine Diagnoses Murmur History of COVID-19 Abnormal EKG Procedures ECHOCARDIOGRAM TREADMILL STRESS TEST NM ECHO TTHRC R-T 2D W/WO M-MODE REST&STRS CONT ECG NM DOPPLER ECHO HEART,LIMITED,F/U NM DOPPLER COLOR FLOW VELOCITY MAP Gerardo Doan MD [address] [place] [address] [facility] [address] [facility] [place] [address] Reason Comments Annual Exam Pap 03/15/20 NILM [...] Care Teams (unrecognized sec tion and content) General Practice Relationship Specialty Start Date End Date Gerardo Doan MD PCP - General Family Medicine 12/21/16 General Practice Relationship Specialty Start Date End Date Gerardo Doan MD PCP - General Family Medicine 12/21/16 General Practice Relationship Specialty Start Date End Date Gerardo [...] BE BASED ON THE PRIMARY CLINICAL RECORDS. [facility] [employer] [facility]. provides no warranty or guarantee of the accuracy or completeness of information in this document.
--- NOTE | 2024-08-17 18:47 | PC.NURSE ---
pt states i had leaking today starting at 10am this morning with no color noted other than clear and white, no odor, no bleeding. no sexual activity today or yesterday. trickles of fluid noted but no large gush of fluid leaking. RN educates on procedure for amnisure test for suspected ROM and patient verbalizes understanding.
[2024-08-17 18:58] VITALS: BP 132/66; PULSE 114
--- NOTE | 2024-08-17 18:59 | PC.NURSE ---
vaginal exam unable to be determined. no vaginal fluid noted for vaginal exam.
--- NOTE | 2024-08-17 19:06 | PC.NURSE ---
185 amnisure obtained by SHELL
[2024-08-17 19:14] LABS: Amnisure NEGATIVE (NEGATIVE); Internal Control Within Normal Limits
== END 2024-08-17 19:30 | disposition home or self-care (01) ==
PROVIDERS: Admitting Provider Obstetrics & Gynecology; Visit Provider Obstetrics & Gynecology
DX: Z03.71 Encounter for suspected problem with amniotic cavity and membrane ruled out (principal); Z3A.37 37 weeks gestation of pregnancy
CPT/HCPCS: 84112; G0378; G0379

== ENCOUNTER 2024-08-22 08:55 | Outpatient (OUT) | payer OTHER, SELFPAY ==
--- NOTE | 2024-08-22 08:57 | US_ITS ---
[address] [address] Patient Name: NIALL HAILE MRN: [id number] date: 1995 Sex: F Assigned Patient Location: US Current Patient Location: Accession/Order Number: [id number] Exam Date: 08/22/2024 09:00 Report Date: 08/23/2024 00:13 At the request of: JOEL ESTES Procedure: US OB growth EXAMINATION: US OB growth HISTORY: SIZE INCONSISTENT WITH DATES O26.849 COMPARISON: Ultrasound OB growth 07/16/2024 FINDINGS: Heart Rate: 158.82 bpm Amniotic Fluid Volume: 24.3 cm; greater than 95th percentile Number: 1 Position: CEPHALIC BIOMETRY: BPD: 9.45 cm; 38 weeks 4 days; 82.40 % HC: 34.89 cm; 40 weeks 4 days; 84.20 % AC: 35.64 cm; 39 weeks 4 days; 93.70 % FL: 6.60 cm; 34 weeks 0 days; < 3 % EFW: 3466.36 g; 68.60 % FL/AC: 18.52 FL/BPD: 69.80 HC/AC: 0.98 GESTATIONAL AGE: Age by EDC: 38 weeks 1 day URSULA by EDC: 2024-09-04 Age by US: 38 weeks 1 day URSULA by US: 2024-09-04 US/US OB growth IMPRESSION: 1. Single live intrauterine with growth detailed above. 2. Femur length is < 3rd percentile. 3. Polyhydramnios. Electronically authenticated by: DANIELLE ERAZO Date: 08/23/2024 00:13
--- OUTSIDE RECORDS SUMMARY | 2024-08-22 08:58 | XMS_ITS | CCD ---
Author Organization [facility] Care Team Providers Care Landscape Supervisor Name Role Phone LOLA KIRBY Unavailable Unavailable [...] Unavailable Unavailable Colton Doanah Primary Care Provider [phone] Colton Doanah Primary Care Provider Jessenia Aliquippa Primary Care Provider Jessenia MIRANDA Aliquippa Primary Care Provider [phone] Jessenia MIRANDA Aliquippa Primary Care Provider Unavailable Primary Care Provider Unavailabl e CELSO, EVA Referring Unavailable COLTON DOANAH Primary Care Unavailable CELSO, EVA Attending Unavailable MEERA, JEANNA Referring Unavailable CELSO, EVA Attending Unavailable CELSO, EVA Attending Unavailable CELSO, EVA Referring Unavailable MEERA, JEANNA Attending Unavailable CELSO, EVA [...] Glucose Monitoring Suppl (D-Care Glucometer) w/Device kit (17 sources) Start: 06-18-2024 End: 06-18-2025 Blood Glucose [...] Active isopropyl alcohol 0.7 ml/ml medicated pad (17 sources) Start: 06-18-2024 Alcohol Swabs (Alcohol Prep [...] unspecified trimester] Onset: 06-04-2024 06-04-2024 Chronic Other complications of (2 sources) size does not accord with dates; Translations: [Uterine size-date discrepancy, unspecified trimester] 08-20-2024 Episodic Other congenital anomalies (2 sources) Congenital pes [...] of ] 05-07-2024 Episodic Residual codes; unclassified (20 sources) Gestation period, 26 weeks; Translations: [26 [...] of ] 07-16-2024 Episodic Residual codes; unclassified (11 sources) Gestation period, 35 weeks; Translations: [35 weeks gestation of ] Onset: 08-06-2024 08-06-2024 Episodic Residual codes; unclassified (2 sources) Gestation period, 36 weeks; Translations: [36 weeks gestation of ] 08-12-2024 Episodic Residual codes; unclassified (2 sources) Gestation period, 37 weeks; Translations: [37 weeks gestation of ] 08-20-2024 Episodic Unclassified (16 sources) Encounter for screening [...] [Body mass index (BMI) 29.0-29.9, adult] Onset: 02-01-2018 07-09-2021 Episodic Otitis media and related conditions (9 sources) Fluid level behind tympanic membrane; Translations: [Unspecified nonsuppurative otitis media, bilateral] Onset: 01-17-2021 Episodic Unclassified (1 source) Encounter for screening for malignant neoplasm of cervix; Translations: [Encounter for screening for malignant neoplasm of cervix] Onset: 02-15-2017 Results Test Name Value Interpretation Reference Range Facil ity Urinalysis macro (dipstick) panel (U)on 08-20-2024 Bilirubin, UA Negative Negative - 4(70) +++ mg/dL [facility] Blood, UA Negative Negative - 50 Milo/mcL [facility] Clarity, UA Clear [facility] Color, UA Yellow [facility] Glucose, UA Negative Negative - 1999(110) ++++ mg/dL [facility] Interpretation and review of laboratory results Abnormal [facility] Ketones, UA Positive Negative - 160(16) ++++ mg/dL [facility] Leukocytes, UA Negative Negative - 500+++ Sonu/mcL [facility] Nitrite, UA Trace Negative - Positive [facility] pH, UA 7 5 - 9 [facility] Protein, UA Negative Negative - 1999(20) ++++ mg/dL [facility] Spec Grav, UA 1.015 1 - 1.03 [facility] Urobilinogen, UA 0.2 0.2 - 12 mg/dL [facility] Urinalysis macro (dipstick) panel (U)on 08-12-2024 Bilirubin, UA Negative Negative - 4(70) +++ mg/dL [facility] Blood, UA Negative Negative - 50 Milo/mcL [facility] Clarity, UA Clear [facility] Color, UA Yellow [facility] Glucose, UA Negative Negative - 1999(110) ++++ mg/dL [facility] Interpretation and review of laboratory results Normal [facility] Ketones, UA Negative Negative - 160(16) ++++ mg/dL [facility] Leukocytes, UA Negative Negative - 500+++ Sonu/mcL [facility] Nitrite, UA Negative Negative - Positive [facility] pH, UA 7 5 - 9 [facility] Protein, UA Negative Negative - 1999(20) ++++ mg/dL [facility] Spec Grav, UA 1.01 1 - 1.03 [facility] Urobilinogen, UA 0.2 0.2 - 12 mg/dL [facility] ALL CBC WITH AUTO DIFFon BASOPHILS ABSOLUTE AUTO 0 [facility] Basophils/100 WBC (Bld) 0.2 % 0.2 - 2.0 % [facility] Eosinophils/100 WBC (Bld) 0.4 % Low 0.9 - 7.0 % [facility] Erythrocyte distribution width (RBC) [Ratio] 15.6 % High 11.0 - 15.0 % [facility] Hematocrit (Bld) [Volume fraction] 33.4 % Low 36.0 - 48.0 % [facility] Hemoglobin (Bld) [Mass/Vol] 10.7 g/dL Low 12.0 - 16.0 g/dL [facility] IMMATURE GRANULOCYTES ABS AUTO 0.31 High [facility] Immature granulocytes/100 WBC (Bld) 2 % High 0.0 - 0.5 % [facility] Interpretation and review of laboratory results Abnormal [facility] LYMPHOCYTES ABSOLUTE AUTO 2.2 [facility] Lymphocytes/100 WBC (Bld) 13.8 % Low 20.5 - 60.0 % [facility] MCH (RBC) [Entitic mass] 30.4 pg 26.7 - 34.0 pg [facility] MCHC (RBC) [Mass/Vol] 32 g/dL 29.9 - 35.2 g/dL [facility] MCV (RBC) [Entitic vol] 94.9 fL 81.0 - 99.0 fL [facility] MONOCYTES ABSOLUTE AUTO 1.3 High [facility] Monocytes/100 WBC (Bld) 8 % 1.7 - 12.0 % [facility] NEUTROPHILS ABSOLUTE AUTO 11.9 High [facility] Neutrophils/100 WBC (Bld) 75.6 % High 43.0 - 75.0 % [facility] Platelet mean volume (Bld) [Entitic vol] 10.2 fL 9.5 - 13.5 fL [facility] TBH EO # 0.1 [facility] TBH PLT 346 [facility] TB RBC 3.52 Low [facility] TBH WBC 15.7 High [facility] Urinalysis macro (dipstick) panel (U)on 08-06-2024 Bilirubin, UA Negative Negative - 4(70) +++ mg/dL [facility] Blood, UA Negative Negative - 50 Milo/mcL [facility] Clarity, UA Clear [facility] Color, UA Yellow [facility] Glucose, UA Negative Negative - 1999(110) ++++ mg/dL [facility] Interpretation and review of laboratory results Abnormal [facility] Ketones, UA Positive Negative - 160(16) ++++ mg/dL [facility] Comment on above: 40 Leukocytes, UA Moderate Negative - 500+++ Sonu/mcL [facility] Nitrite, UA Negative Negative - Positive [facility] pH, UA 7 5 - 9 [facility] Protein, UA Negative Negative - 1999(20) ++++ mg/dL [facility] Spec Grav, UA 1.015 1 - 1.03 [facility] Urobilinogen, UA 0.2 0.2 - 12 mg/dL [facility] Urinalysis macro (dipstick) panel (U)on 07-16-2024 Bilirubin, UA Negative Negative - 4(70) +++ mg/dL [facility] Blood, UA Negative Negative - 50 Milo/mcL [facility] Clarity, UA Clear [facility] Color, UA Yellow [facility] Glucose, UA Negative Negative - 1999(110) ++++ mg/dL [facility] Interpretation and review of laboratory results Abnormal [facility] Ketones, UA Positive Negative - 160(16) ++++ mg/dL [facility] Comment on above: trace Leukocytes, UA Positive Negative - 500+++ Sonu/mcL [facility] Comment on above: small Nitrite, UA Negative Negative - Positive [facility] pH, UA 6 5 - 9 [facility] Protein, UA Negative Negative - 1999(20) ++++ mg/dL [facility] Spec Grav, UA 1.02 1 - 1.03 [facility] Urobilinogen, UA 0.2 0.2 - 12 mg/dL [facility] Urinalysis macro (dipstick) panel (U)on 07-02-2024 Bilirubin, UA Negative Negative - 4(70) +++ mg/dL [facility] Blood, UA Negative Negative - 50 Milo/mcL [facility] Clarity, UA Clear [facility] Color, UA Yellow [facility] Glucose, UA Negative Negative - 1999(110) ++++ mg/dL [facility] Interpretation and review of laboratory results Abnormal [facility] Ketones, UA Positive Negative - 160(16) ++++ mg/dL [facility] Leukocytes, UA Many Negative - 500+++ Sonu/mcL [facility] Nitrite, UA Negative Negative - Positive [facility] pH, UA 7 5 - 9 [facility] Protein, UA Negative Negative - 2000(20) ++++ mg/dL [facility] Spec Grav, UA 1.02 1 - 1.03 [facility] Urobilinogen, UA 1.0 0.2 - 12 mg/dL [facility] FAX REQUESTon 06-18-2024 FAX TO [phone] Normal [facility] Comment on above: Result Comment: Test ing performed at [place] [address] Performed By: #### F X #### [place] [address] GTT 3HR GESTATIONALon 2023 Glucose [Mass/Vol] 57 mg/dL Low 65-140 [facility] Comment on above: Result Comment: Test ing performed at [place] [address] Performed By: #### F X #### [place] [address] Glucose [Mass/Vol] 140 mg/dL Normal 65-165 [facility] Comment on above: Result Comment: Test ing performed at [place] [address] Performed By: #### F X #### [place] [address] Glucose [Mass/Vol] 210 mg/dL High 65-190 [facility] Comment on above: Result Comment: Test ing performed at [place] [address] Performed By: #### F X #### [place] [address] Glucose [Mass/Vol] 96 mg/dL Normal <100 [facility] Comment on above: Result Comment: Test ing performed at [place] [address] Performed By: #### F X #### [place] [address] Urinalysis macro (dipstick) panel (U)on 06-04-2024 Bilirubin, UA Negative Negative - 4(70) +++ mg/dL [facility] Blood, UA Positive Negative - 50 Milo/mcL [facility] Comment on above: trace Clarity, UA Clear [facility] Color, UA Yellow [facility] Glucose, UA Negative Negative - 2000(110) ++++ mg/dL [facility] Interpretation and review of laboratory results Abnormal [facility] Ketones, UA Negative Negative - 160(16) ++++ mg/dL [facility] Leukocytes, UA Positive Negative - 500+++ Sonu/mcL [facility] Comment on above: small Nitrite, UA Negative Negative - Positive [facility] pH, UA 7 5 - 9 [facility] Protein, UA Negative Negative - 2000(20) ++++ mg/dL [facility] Spec Grav, UA 1.015 1 - 1.03 [facility] Urobilinogen, UA 0.2 0.2 - 12 mg/dL [facility] CBCon 05-28-2024 ABSOLUTE BAS 0.0 10*3/uL Normal 0.0-0.2 [facility] Comment on above: Result Comment: Test ing performed at [place] [address] Performed By: #### F X #### [place] [address] ABSOLUTE EOS 0.0 10*3/uL Normal 0.0-0.7 [facility] Comment on above: Performed By: #### F X #### [place] [address] ABSOLUTE NEUTROPHIL COUNT 11.0 10*3/uL High 1.4-6.5 [facility] Comment on above: Performed By: #### F X #### [place] [address] Basophils/100 WBC (Bld) 0.1 % Normal 0.0-2.0 [facility] Comment on above: Performed By: #### F X #### [place] [address] DTYPE AUTO DIFF Normal [facility] Comment on above: Performed By: #### F X #### Testing performed at [address] [place] [address] Eosinophils/100 WBC (Bld) 0.2 % Normal 0.0-11.0 [facility] Comment on above: Performed By: #### F X #### Testing performed at [address] [address] Lymphocytes (Bld) [#/Vol] 1.4 10*3/uL Normal 1.2-3.4 [facility] Comment on above: Performed By: #### F X #### Testing performed at [address] [address] Lymphocytes/100 WBC (Bld) 10.8 % Low 20.0-55.0 [facility] Comment on above: Performed By: #### F X #### Testing performed at [address] [address] Monocytes (Bld) [#/Vol] 0.6 10*3/uL Normal 0.0-0.7 [facility] Comment on above: Performed By: #### F X #### Testing performed at [address] [address] Monocytes/100 WBC (Bld) 4.2 % Normal 0.0-10.0 [facility] Comment on above: Performed By: #### F X #### Testing performed at [address] [address] Neutrophils/100 WBC (Bld) 84.7 % High 37.0-75.0 [facility] Comment on above: Performed By: #### F X #### Testing performed at [address] [address] Erythrocyte distribution width (RBC) [Ratio] 13.3 % Normal 11.5-14.5 [facility] Comment on above: Performed By: #### F X #### Testing performed at [address] [address] Hematocrit (Bld) [Volume fraction] 29.4 % Low 36.0-48.0 [facility] Comment on above: Performed By: #### F X #### Testing performed at [address] [place] [address] Hemoglobin (Bld) [Mass/Vol] 10.0 g/dL Low 12.0-16.0 [facility] Comment on above: Performed By: #### F X #### Testing performed at [address] [address] MCH (RBC) [Entitic mass] 31.4 pg Normal 26.0-35.0 [facility] Comment on above: Performed By: #### F X #### Testing performed at [address] [address] MCHC (RBC) [Mass/Vol] 34.1 g/dL Normal 27.0-37.0 [facility] Comment on above: Performed By: #### F X #### Testing performed at [address] [address] MCV (RBC) [Entitic vol] 92.0 fL Normal 80.0-100.0 [facility] Comment on above: Performed By: #### F X #### Testing performed at [address] [address] Platelet mean volume (Bld) [Entitic vol] 7.2 fL Low 7.4-11.0 [facility] Comment on above: Performed By: #### F X #### Testing performed at [address] [address] Platelets (Bld) [#/Vol] 403 10*3/uL High 130-400 [facility] Comment on above: Performed By: #### F X #### Testing performed at [address] [address] RBC (Bld) [#/Vol] 3.20 10*6/uL Low 4.0-5.4 [facility] Comment on above: Performed By: #### F X #### Testing performed at [address] [address] WBC (Bld) [#/Vol] 13.0 10*3/uL High 3.6-11.0 [facility] Comment on above: Performed By: #### F X #### [place] [address] FAX REQUESTon 05-28-2024 FAX TO [phone] Normal [facility] Comment on above: Result Comment: CONCHITA ECTED ON 05/28 AT 1651: PREVIOUSLY REPORTED [phone] Performed By: #### F X #### [place] [address] GLUCOSE 1 HR PCon 05-28-2024 Glucose [Mass/Vol] 146 mg/dL Normal 65-200 [facility] Comment on above: Result Comment: Test ing performed at [place] [address] Performed By: #### F X #### [place] [address] Urinalysis macro (dipstick) panel (U)on 05-07-2024 Bilirubin, UA Negative Negative - 4(70) +++ mg/dL [facility] Blood, UA Negative Negative - 50 Milo/mcL [facility] Clarity, UA Clear [facility] Color, UA Yellow [facility] Glucose, UA Negative Negative - 1999(110) ++++ mg/dL [facility] Interpretation and review of laboratory results Abnormal [facility] Ketones, UA Negative Negative - 160(16) ++++ mg/dL [facility] Leukocytes, UA Trace Negative - 500+++ Sonu/mcL [facility] Nitrite, UA Negative Negative - Positive [facility] pH, UA 7.0 5 - 9 [facility] Protein, UA Negative Negative - 1999(20) ++++ mg/dL [facility] Spec Grav, UA 1.010 1 - 1.03 [facility] Urobilinogen, UA 0.2 0.2 - 12 mg/dL [facility] IGP,APTIMA HPV,AGE GDLNon AGE GDLN ACOG TESTING Note . [facility] Comment on above: TESTS RESULT FLAG UN ITS REF RANGE LAB Clinician Provided Cytology Information Source.............Cervix No. of containers..01 ThinPrep Vial Age Ramone FARNSWORTH Viktoria... FLAG LEGEND: L-Low Normal,H-High Normal,LL-Alert Low,HH-Alert High <-Panic Low,>-Panic High,A-Abnormal,AA-Critical Abnormal Performed at: 01 =[facility] [address] Kayleen Nielson MD, IGP, RFX APTIMA HPV ASCU Note . [facility] Comment on above: TESTS RESULT FLAG U NITS REF RANGE LAB DIAGNOSIS: 02 NEGATIVE FOR INTRAEPITHELIAL LESION OR MALIGNANCY. Specimen adequacy: 02 Satisfactory for evaluation. No endocervical component is identified. Performed by: 02 Henok Adames, Measurement Specialist ([facility]) . 02 Note: Note 02 The [...] <-Panic Low,>-Panic High,A-Abnormal,AA-Critical Abnormal Performed at: [address] [address] Kayleen Nielson MD, Performed at: =[address] [id number] Clock Repairer: Kayleen Nielson MD, Phone: [phone] Performed at: [address] [id number] Clock Repairer: Kayleen Nielson MD, Phone: [phone] SPATULA-ALONE CERVIX [facility] URETHRITIS/DISCHARGE PLUS VA GINITIS (HTRX)on 04-10-2024 ATOPOBIUM VAGINAE 0.000 [facility] ATOPOBIUM VAGINAE Not detected [facility] BVAB 2,3 (BACTERIAL VAGINOSIS ASSOCIATED BACTERIA 2, 3); MOBILUNCUS SPP 0.000 [facility] BVAB 2,3 (BACTERIAL VAGINOSIS ASSOCIATED BACTERIA 2, 3); MOBILUNCUS SPP Not detected [facility] OMER ALBICANS, PARAPSILOSIS, TROPICALIS 0.000 [facility] OMER ALBICANS, PARAPSILOSIS, TROPICALIS Not detected [facility] OMER GLABRATA 0.000 [facility] OMER GLABRATA Not detected [facility] OMER KRUSEI 0.000 [facility] OMER KRUSEI Not detected [facility] CHLAMYDIA TRACHOMATIS 0.000 [facility] CHLAMYDIA TRACHOMATIS Not detected [facility] GARDNERELLA VAGINALIS 0.000 [facility] GARDNERELLA VAGINALIS Not detected [facility] MEGASPHAERA (TYPES 1, 2) 0.000 [facility] MEGASPHAERA (TYPES 1, 2) Not detected [facility] MYCOPLASMA GENITALIUM 0.000 [facility] MYCOPLASMA GENITALIUM Not detected [facility] NEISSERIA GONORRHOEAE 0.000 [facility] NEISSERIA GONORRHOEAE Not detected [facility] TRICHOMONAS VAGINALIS 0.000 [facility] TRICHOMONAS VAGINALIS Not detected [facility] Urinalysis macro (dipstick) panel (U)on 04-09-2024 Bilirubin, UA Negative Negative - 4(70) +++ mg/dL [facility] Blood, UA Negative Negative - 50 Milo/mcL [facility] Clarity, UA Cloudy [facility] Color, UA Yellow [facility] Glucose, UA Negative Negative - 1999(110) ++++ mg/dL [facility] Interpretation and review of laboratory results Abnormal [facility] Ketones, UA Negative Negative - 160(16) ++++ mg/dL [facility] Leukocytes, UA Positive Negative - 500+++ Sonu/mcL [facility] Nitrite, UA Negative Negative - Positive [facility] Comment on above: small pH, UA 8.0 5 - 9 [facility] Protein, UA Negative Negative - 2000(20) ++++ mg/dL [facility] Spec Grav, UA 1.020 1 - 1.03 [facility] Urobilinogen, UA 0.2 0.2 - 12 mg/dL [facility] RPRon 02-10-2024 Reagin Ab RPR Ql (S) Non-Reactive Normal NONREACTIVE A [facility] Comment on above: Result Comment: Test ing performed at [place] [address] Performed By: #### R UBL, ACBC, FX, GHIV, ARPR #### [place] [address] RUBELLA SCREENon 02-10-2024 RUBELLA SCREEN Positive Normal POSITIVE [facility] Comment on above: Result Comment: POSI TIVE RESULT INDICATES PRESUMED IMMUNITY Testing performed at [place] [address] Performed By: #### R UBL, ACBC, FX, GHIV, ARPR #### [place] [address] HEP B SURFACE AGon HEP B SURFACE AG Negative Normal NEGATIVE [facility] Comment on above: Performed By: #### F X #### [place] [address] HEP C ABon 02-07-2024 HEP C AB Negative Normal NEGATIVE [facility] Comment on above: Performed By: #### F X #### Testing performed at [place] [id number] CBCon 02-06-2024 ABSOLUTE BAS 0.0 10*3/uL Normal 0.0-0.2 [facility] Comment on above: Result Comment: Test ing performed at [place] [address] Performed By: #### R UBL, ACBC, FX, GHIV, ARPR #### [place] [address] ABSOLUTE EOS 0.1 10*3/uL Normal 0.0-0.7 [facility] Comment on above: Performed By: #### R UBL, ACBC, FX, GHIV, ARPR #### [place] [address] ABSOLUTE NEUTROPHIL COUNT 9.0 10*3/uL High 1.4-6.5 [facility] Comment on above: Performed By: #### R UBL, ACBC, FX, GHIV, ARPR #### Testing performed at [place] [id number] Basophils/100 WBC (Bld) 0.2 % Normal 0.0-2.0 [facility] Comment on above: Performed By: #### R UBL, ACBC, FX, GHIV, ARPR #### [place] [address] DTYPE AUTO DIFF Normal [facility] Comment on above: Performed By: #### R UBL, ACBC, FX, GHIV, ARPR #### [place] [address] Eosinophils/100 WBC (Bld) 0.6 % Normal 0.0-11.0 [facility] Comment on above: Performed By: #### R UBL, ACBC, FX, GHIV, ARPR #### [place] [address] Lymphocytes (Bld) [#/Vol] 2.2 10*3/uL Normal 1.2-3.4 [facility] Comment on above: Performed By: #### R UBL, ACBC, FX, GHIV, ARPR #### [place] [address] Lymphocytes/100 WBC (Bld) 18.4 % Low 20.0-55.0 [facility] Comment on above: Performed By: #### R UBL, ACBC, FX, GHIV, ARPR #### [place] [address] Monocytes (Bld) [#/Vol] 0.8 10*3/uL High 0.0-0.7 [facility] Comment on above: Performed By: #### R UBL, ACBC, FX, GHIV, ARPR #### Testing performed at [place] [id number] Monocytes/100 WBC (Bld) 6.3 % Normal 0.0-10.0 [facility] Comment on above: Performed By: #### R UBL, ACBC, FX, GHIV, ARPR #### Testing performed at [place] [id number] Neutrophils/100 WBC (Bld) 74.5 % Normal 37.0-75.0 [facility] Comment on above: Performed By: #### R UBL, ACBC, FX, GHIV, ARPR #### [place] [address] Erythrocyte distribution width (RBC) [Ratio] 13.5 % Normal 11.5-14.5 [facility] Comment on above: Performed By: #### R UBL, ACBC, FX, GHIV, ARPR #### [place] [address] Hematocrit (Bld) [Volume fraction] 36.2 % Normal 36.0-48.0 [facility] Comment on above: Performed By: #### R UBL, ACBC, FX, GHIV, ARPR #### [place] [address] Hemoglobin (Bld) [Mass/Vol] 12.0 g/dL Normal 12.0-16.0 [facility] Comment on above: Performed By: #### R UBL, ACBC, FX, GHIV, ARPR #### [place] [address] MCH (RBC) [Entitic mass] 29.6 pg Normal 26.0-35.0 [facility] Comment on above: Performed By: #### R UBL, ACBC, FX, GHIV, ARPR #### [place] [address] MCHC (RBC) [Mass/Vol] 33.0 g/dL Normal 27.0-37.0 [facility] Comment on above: Performed By: #### R UBL, ACBC, FX, GHIV, ARPR #### [place] [address] MCV (RBC) [Entitic vol] 89.7 fL Normal 80.0-100.0 [facility] Comment on above: Performed By: #### R UBL, ACBC, FX, GHIV, ARPR #### [place] [address] Platelet mean volume (Bld) [Entitic vol] 6.9 fL Low 7.4-11.0 [facility] Comment on above: Performed By: #### R UBL, ACBC, FX, GHIV, ARPR #### [place] [address] Platelets (Bld) [#/Vol] 406 10*3/uL High 130-400 [facility] Comment on above: Performed By: #### R UBL, ACBC, FX, GHIV, ARPR #### [place] [address] RBC (Bld) [#/Vol] 4.04 10*6/uL Normal 4.0-5.4 [facility] Comment on above: Performed By: #### R UBL, ACBC, FX, GHIV, ARPR #### [place] [address] WBC (Bld) [#/Vol] 12.1 10*3/uL High 3.6-11.0 [facility] Comment on above: Performed By: #### R UBL, ACBC, FX, GHIV, ARPR #### [place] [address] FAX REQUESTon 02-06-2024 FAX TO [phone] [facility] Comment on above: Result Comment: Test ing performed at [place] [address] Performed By: #### F X #### [place] [address] FAX TO [phone] [facility] Comment on above: Result Comment: Test ing performed at [place] [address] Performed By: #### F X #### [place] [address] FAX TO [phone] [facility] Comment on above: Result Comment: Test ing performed at [place] [address] Performed By: #### F X #### [place] [address] FAX TO [phone] [facility] Comment on above: Result Comment: Test ing performed at [place] [address] Performed By: #### F X, HA1CT #### [place] [address] FAX TO [phone] [facility] Comment on above: Result Comment: Test ing performed at [place] [address] Performed By: #### R UBL, ACBC, FX, GHIV, ARPR #### [place] [address] HEMOGLOBIN A1Con 02-06-2024 Glucose [Mass/Vol] 100 mg/dL Normal [facility] Comment on above: Result Comment: Test ing performed at [place] [address] Performed By: #### F X, HA1CT #### [place] [address] HbA1c (Bld) [Mass fraction] 5.1 % Normal 0-6 [facility] Comment on above: Result Comment: NORMAL <5.7% PREDIABETES 5.7-6.4% DIABETES 6.5% OR HIGHER Performed By: #### F X, HA1CT #### [place] [address] HIV 1,2 ABon 02-06-2024 HIV 1,2 Non-Reactive Normal NONREACTIVE [facility] Comment on above: Result Comment: Test ing performed at [place] [address] Performed By: #### R UBL, ACBC, FX, GHIV, ARPR #### [place] [address] TYPE AND SCREEN CROSSMATCH C ONVERTIBLEon 02-06-2024 TYPE AND SCREEN CROSSMATCH CONVERTIBLE WORKUP EXPIRES 02/09/2024,2359 ABO/RH(D) O POSITIVE ANTIBODY SCREEN NEGATIVE ARM BAND NUMBER [id number] Testing performed at [place] [address] Normal [facility] Comment on above: Performed By: #### T SCC #### [place] [address] URINE CULTUREon 02-06-2024 Bacteria identified Cx Nom (U) SPECIMEN DESCRIPTION URINE CLEAN CATCH CULTURE NO PATHOGENS ISOLATED * Result Note: Testing performed at [place] [address] * REPORT STATUS 02/08/2024 * Result Note: FINAL * Normal [facility] Comment on above: Performed By: #### A URNC #### Testing performed at [facility] [address] [place] [address] ECHOCARDIOGRAM TREADMILL STR ESS TESTOrdered By: Gerardo [...] were monitored. An Echocardiogram was performed by instrument room technician in four stages in quad fashion. At peak stress, four selected images were obtained and placed side by side with resting images for comparison. Stress Test Details Test: Exercise stress testing was performed using a Rodger protocol. HR Resting HR: 109 bpm Max Heart Rate (APMHR): 194.673436 bpm Max HR Achieved: 200 bpm Target HR (85% APMHR): 164.181993 bpm % of APMHR: 103.09 Recovery HR: [...] 13.70 METs Scale: Active Angina Score: None [facility] [employer] [facility] User, Interfaces - 02/18/2021 12:14 AM [...] were monitored. An Echocardiogram was performed by instrument room technician in four stages in quad fashion. At peak stress, four selected images were obtained and placed side by side with resting images for comparison. Stress Test Details Test: Exercise stress testing was performed using a Rodger protocol. HR Resting HR: 109 bpmMax Heart Rate (APMHR): 194.418391 bpm Max HR Achieved: 200 bpmTarget HR (85% APMHR): 164.871512 bpm % of APMHR: 103.09 Recovery HR: [...] 13.70 METs Scale: Active Angina Score: None [facility] [employer] [facility] [employer] [facility] ECGOrdered By: Gerardo Doan on 01-27-2021 [facility] [employer] [facility] B12 & FOLATEOrdered By: Yessy Doan on 01-17-2021 Cobalamin (Vitamin B12) [Mass/Vol] 383 pg/mL 239 - 931 PG/ML [facility] Folate [Mass/Vol] 19.7 ng/mL I Had Cancer [facility] Comment on above: Testing performed at [address] CBC, EDIF, PLATELETOrdered B y: Gerardo Doan on 01-17-2021 ABSOLUTE BASOPHIL COUNT 0.1 10*3/uL 0.0 - 0.2 10*3/uL [facility] [employer] [facility] Comment on above: Testing performed at [place] [address] Basophils/100 WBC (Bld) 0.4 % 0.0 - 2.0 % [facility] Differential cell count method Nom (Bld) AUTO DIFF % [facility] Eosinophils (Bld) [#/Vol] 0.10 10*3/uL 0.0 - 0.7 10*3/uL [facility] [employer] [facility] Eosinophils/100 WBC (Bld) 0.6 % 0.0 - 11.0 % [facility] Erythrocyte distribution width (RBC) [Ratio] 13.2 % 11.5 - 14.5 % [facility] Hematocrit (Bld) [Volume fraction] 39.3 % 36.0 - 48.0 % [facility] Hemoglobin (Bld) [Mass/Vol] 13.6 g/dL [facility] Interpretation and review of laboratory results Abnormal [facility] Lymphocytes (Bld) [#/Vol] 1.90 10*3/uL 1.2 - 3.4 10*3/uL [facility] Lymphocytes/100 WBC (Bld) 13.6 % Low 20.0 - 55.0 % [facility] MCH (RBC) [Entitic mass] 31.1 pg 26.0 - 35.0 PG [facility] MCHC (RBC) [Mass/Vol] 34.7 g/dL [facility] MCV (RBC) [Entitic vol] 89.6 fL [facility] Monocytes (Bld) [#/Vol] 0.5 10*3/uL 0.0 - 0.7 10*3/uL [facility] Monocytes/100 WBC (Bld) 3.5 % 0.0 - 10.0 % [facility] Neutrophils (Bld) [#/Vol] 11.3 10*3/uL High 1.4 - 6.5 10*3/uL [facility] Neutrophils/100 WBC (Bld) 81.9 % High 37.0 - 75.0 % [facility] Platelet mean volume (Bld) [Entitic vol] 7.6 fL [facility] Platelets (Bld) [#/Vol] 483 10*3/uL High 130.0 - 400.0 10*3/uL [facility] RBC (Bld) [#/Vol] 4.38 10*6/uL 4.0 - 5.4 10*6/uL [facility] WBC (Bld) [#/Vol] 13.8 10*3/uL High 3.6 - 11.0 10*3/uL [facility] COMPREHENSIVE METABOLIC PANE LOrdered By: Gerardo Doan on 01-17-2021 Albumin [Mass/Vol] 4.6 G/dl 3.5 - 5.0 G/dl [facility] Albumin/Globulin [Mass ratio] 1.4 {ratio} [facility] ALP [Catalytic activity/Vol] 57 U/L [facility] ALT [Catalytic activity/Vol] 18 U/L <35 IU/L [facility] AST [Catalytic activity/Vol] 21 U/L [facility] Bilirubin [Mass/Vol] 0.4 mg/dL [facility] Calcium [Mass/Vol] 10.3 mg/dL High [facility] Chloride [Moles/Vol] 106 mmol/L [facility] Comment on above: Please note: Triglyc eride levels of 600mg/dL or higher may positively bias chloride results by approximately 2.1 mmol CO2 [Moles/Vol] 21 mmol/L Low [facility] Creatinine [Mass/Vol] 0.50 mg/dL Low [facility] GFR COMMENT Average GFR for 20-2 9 years old = 116. [facility] Comment on above: Chronic Kidney disea se, GFR = <60. Kidney failure, GFR = <15. The GFR estimate is not adjusted for extreme body surface area or acute process, nor has it been validated for women or ethnic groups other than and . Testing performed at [place], [place] [address] GFR/1.73 sq M.predicted among blacks MDRD (S/P/Bld) [Vol rate/Area] mL/min/{1.73_m2} ml/min/1.73sq.m [facility] GFR/1.73 sq M.predicted among non-blacks MDRD (S/P/Bld) [Vol rate/Area] mL/min/{1.73_m2} ml/min/1.73sq.m [facility] Glucose post fast [Mass/Vol] 105 mg/dL [facility] Comment on above: NORMAL <100 mg/dL PREDIABETES 101-126 mg/dL DIABETES 126 mg/dL or higher Interpretation and review of laboratory results Abnormal [facility] Potassium [Moles/Vol] 4.1 mmol/L [facility] Protein [Mass/Vol] 8.0 g/dL [facility] Sodium [Moles/Vol] 138 mmol/L [facility] Urea nitrogen [Mass/Vol] 8 mg/dL [facility] HEMOGLOBIN [id number] By: Sa edi Doan on 01-17-2021 Glucose [Mass/Vol] 100 mg/dL [facility] Comment on above: Testing performed at [place] [address] HbA1c (Bld) [Mass fraction] 5.1 % 0 - 6 % [facility] Comment on above: NORMAL <5.7% PREDIABETES 5.7-6.4% DIABETES 6.5% OR HIGHER [facility] IRON/IRON BINDING/TRANSFERRI NOrdered By: Gerardo Doan on 01-17-2021 Interpretation and review of laboratory results Abnormal [facility] Iron [Mass/Vol] 145 ug/dL [facility] Iron binding capacity [Mass/Vol] 505 High [facility] Iron saturation [Mass fraction] 29 % [facility] Comment on above: Testing performed at [address] TSHOrdered By: Gerardo Doan on 01-17-2021 TSH Qn 1.420 m[IU]/L [facility] Comment on above: Testing performed at [address] PROGRESSon 04-25-2018 [facility] NOTES Normal [facility] PROGRESSon 02-19-2018 [facility] NOTES Normal [facility] PROGRESSon 02-13-2018 [facility] NOTES Normal [facility] PAP, ThinPrep, rfx HPV ASCUS on 02-15-2017 Comment Normal [facility] Comment on above: Result Comment: IGLB P CPT CODE AUTOMATION: (NOTE)IGLBP CPT CODE AUTOMATION: This liquid based ThinPrep(R) pap test was screenedwith theIGLBP CPT CODE AUTOMATION: use of an image guided system. Performed By: #### L PRAS ####[facility] [address] [place] [address] lab Director: Dr. Lauro Merino, DO Diagnosis Normal [facility] Comment on above: Result Comment: Comm ent(NOTE)NEGATIVE FOR INTRAEPITHELIAL LESION AND MALIGNANCY.CELLULAR CHANGES ASSOCIATED WITH INFLAMMATION ARE PRESENT.THIS SPECIMEN WAS RESCREENED PART OF OUR COOK SUPERVISOR PROGRAM. Performed By: #### L PRAS ####[facility] [address] [place] [address] lab Director: Dr. Lauro Merino DO IGLBP CPT COde Comment [facility] Comment on above: Performed By: #### L PRAS ####[facility] [address] [place] [address] Lab Director: Dr. Lauro Merino DO Note [facility] Comment on above: Result Comment: Comm ent(NOTE)The Pap smear is a screening test designed to aid in the detection ofpremalignant and malignant conditions of the uterine cervix. It isnot a diagnostic procedure and should not be used as the sole meansof detecting cervical cancer. Both false-positive and false-negativereports do occur. Performed By: #### L PRAS ####[facility] [address] [place] [address] Lab Director: Dr. Lauro Merino DO Performed By Comment Kareen Lucero, Measurement Specialist [facility] Comment on above: Performed By: #### L PRAS ####[facility] [address] [place] [address] Lab Director: Dr. Lauro Merino DO [facility]formed By [facility] Comment on above: Performed By: #### L PRAS ####[facility] [address] [place] [address] Lab Director: Dr. Lauro Merino DO QC Reviewed By Millie Yip , Supervisory Measurement Specialist (ASCP) [facility] Comment on above: Performed By: #### L PRAS ####[facility] [address] [place] [address] Lab Director: Dr. Lauro Merino DO Spec Adequacy [facility] Comment on above: Result Comment: Comm ent(NOTE)Satisfactory for evaluation. Endocervical and/or squamous metaplasticcells (endocervical component) are present. Performed By: #### L PRAS ####[facility] [address] [place], [place] [id number] lab Director: Dr. Lauro Merino DO Specimen # [id number] [facility] Comment on above: Performed By: #### L PRAS ####[facility] [address] [place] [address] lab Director: Dr. Lauro Merino DO . [facility] Comment on above: Result Comment: Comm ent(NOTE)The HPV DNA reflex criteria were not met with this specimen resulttherefore, no HPV testing was performed.No. of containers..01 CYTYC Thin Prep VialPERFORMED AT [facility] Performed By: #### L PRAS ####[facility] [address] [place] [address] lab Director: Dr. Lauro Merino DO . . [facility] Comment on above: Performed By: #### L PRAS ####[facility] [address] [place] [address] lab Director: Dr. Lauro Merino DO Vital Signs Date Time Vital Sign Value Performing Clinician Facility 08-20-2024 10:27-0500 Body weight 75.3 kg Jeanna KONG Work Phone: [facility] 08-20-2024 10:27-0500 Diastolic blood pressure 72 mm[Hg] Jeanna KONG Work Phone: [facility] 08-20-2024 10:27-0500 Systolic blood pressure 120 mm[Hg] Jeanna KONG Work Phone: [facility] 08-12-2024 14:32-0500 Body weight 76.11 kg Eva Celso DO Work Phone: [facility] 08-12-2024 14:32-0500 Diastolic blood pressure 66 mm[Hg] Eva Celso DO Work Phone: [facility] 08-12-2024 14:32-0500 Systolic blood pressure 124 mm[Hg] Eva Celso DO Work Phone: [facility] 08-06-2024 15:49-0500 Body weight 76.11 kg Jeanna Wells PA Work Phone: [facility] 08-06-2024 15:49-0500 Diastolic blood pressure 70 mm[Hg] Jeanna Meera PA Work Phone: [facility] 08-06-2024 15:49-0500 Systolic blood pressure 120 mm[Hg] Jeanna Wells PA Work Phone: [facility] 07-16-2024 11:01-0500 Body weight 75.75 kg Jeanna Wells PA Work Phone: [facility] 07-16-2024 11:01-0500 Diastolic blood pressure 72 mm[Hg] Jeanna Meera PA Work Phone: [facility] 07-16-2024 11:01-0500 Systolic blood pressure 116 mm[Hg] Jeanna Wells PA Work Phone: [facility] 07-02-2024 10:02-0500 Body weight 75.93 kg Jeanna Wells PA Work Phone: [facility] 07-02-2024 10:02-0500 Diastolic blood pressure 70 mm[Hg] Jeanna Meera PA Work Phone: [facility] 07-02-2024 10:02-0500 Systolic blood pressure 112 mm[Hg] Jeanna Wells PA Work Phone: [facility] 06-18-2024 15:14-0500 Body weight 76.11 kg Jeanna Meera PA Work Phone: [facility] 06-18-2024 15:14-0500 Diastolic blood pressure 76 mm[Hg] Jeanna Wells PA Work Phone: [facility] 06-18-2024 15:14-0500 Systolic blood pressure 114 mm[Hg] Jeanna Wells PA Work Phone: [facility] 06-04-2024 11:00-0500 Body weight 75.3 kg Eva Celso DO Work Phone: [facility] 06-04-2024 11:00-0500 Diastolic blood pressure 72 mm[Hg] Eva Celso DO Work Phone: [facility] 06-04-2024 11:00-0500 Systolic blood pressure 118 mm[Hg] Eva Celso DO Work Phone: [facility] 05-07-2024 10:50-0400 Body weight 76.11 kg Jeanna KONG Work Phone: [facility] 05-07-2024 10:50-0400 Diastolic blood pressure 70 mm[Hg] Jeanna Meera PA Work Phone: [facility] 05-07-2024 10:50-0400 Systolic blood pressure 120 mm[Hg] Jeanna Estes PA Work Phone: [facility] 04-09-2024 09:14-0400 Body weight 73.94 kg Eva Celso DO Work Phone: [facility] 04-09-2024 09:14-0400 Diastolic blood pressure 72 mm[Hg] Eva Celso DO Work Phone: [facility] 04-09-2024 09:14-0400 Systolic blood pressure 120 mm[Hg] Eva Celso DO Work Phone: [facility] 03-27-2023 09:16-0400 Body height 157.5 cm Ami Hay 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 Work Phone: [facility] 03-27-2023 09:16-0400 Body mass index (BMI) [Ratio] 29.26 kg/m2 Ami Hay 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 Work Phone: [facility] 03-27-2023 09:16-0400 Body weight 72.58 kg Ami Hay 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 Work Phone: [facility] 03-27-2023 09:16-0400 Diastolic blood pressure 64 mm[Hg] Ami Hay 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 Work Phone: [facility] 03-27-2023 09:16-0400 Systolic blood pressure 110 mm[Hg] Ami Hay 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 Work Phone: [facility] 03-19-2022 10:05-0400 Body height 157.5 cm Lola Kofi 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 Work Phone: [facility] 03-19-2022 10:05-0400 Body mass index (BMI) [Ratio] 30.91 kg/m2 Lola Kofi 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 Work Phone: [facility] 03-19-2022 10:05-0400 Body weight 76.66 kg Lola Kofi 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 Work Phone: [facility] 03-19-2022 10:05-0400 Diastolic blood pressure 66 mm[Hg] Lola Kofi 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 Work Phone: [facility] 03-19-2022 10:05-0400 Systolic blood pressure 122 mm[Hg] Lola Kofi 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 Work Phone: [facility] 03-17-2021 13:57-0400 Body height 157.5 cm Lola Kofi 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 Work Phone: [facility] 03-17-2021 13:57-0400 Body mass index (BMI) [Ratio] 28.9 kg/m2 Lola Kofi 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 Work Phone: [facility] 03-17-2021 13:57-0400 Body weight 71.67 kg Lola Kofi 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 Work Phone: [facility] 03-17-2021 13:57-0400 Diastolic blood pressure 76 mm[Hg] Lola Kofi 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 Work Phone: [facility] 03-17-2021 13:57-0400 Systolic blood pressure 122 mm[Hg] Lola Kofi 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 Work Phone: [facility] 02-01-2021 07:05-0400 Body height 157.5 cm Gerardo Doan MD Work Phone: [facility] 02-01-2021 07:05-0400 Body mass index (BMI) [Ratio] 29.07 kg/m2 Gerardo Doan MD Work Phone: [facility] 02-01-2021 07:05-0400 Body temperature 98.4 [degF] Gerardo Doan MD Work Phone: [facility] 02-01-2021 07:05-0400 Body weight 72.12 kg Gerardo Doan MD Work Phone: [facility] 02-01-2021 07:05-0400 Diastolic blood pressure 84 mm[Hg] Gerardo Doan MD Work Phone: [facility] 02-01-2021 07:05-0400 Heart rate 127 /min Gerardo Doan MD Work Phone: [facility] 02-01-2021 07:05-0400 Respiratory rate 18 /min Gerardo Doan MD Work Phone: [facility] 02-01-2021 07:05-0400 SaO2% (BldA) [Mass fraction] 99 % Gerardo Doan MD Work Phone: [facility] 02-01-2021 07:05-0400 Systolic blood pressure 130 mm[Hg] Gerardo Doan MD Work Phone: [facility] 01-17-2021 09:37-0400 Diastolic blood pressure 80 mm[Hg] Gerardo Doan MD Work Phone: [facility] 01-17-2021 09:37-0400 Heart rate 111 /min Gerardo Doan MD Work Phone: [facility] 01-17-2021 09:37-0400 Systolic blood pressure 130 mm[Hg] Gerardo Doan MD Work Phone: [facility] 01-17-2021 08:17-0400 Body height 157.5 cm Gerardo Doan MD Work Phone: [facility] 01-17-2021 08:17-0400 Body mass index (BMI) [Ratio] 28.74 kg/m2 Gerardo Doan MD Work Phone: [facility] 01-17-2021 08:17-0400 Body temperature 98.6 [degF] Gerardo Doan MD Work Phone: [facility] 01-17-2021 08:17-0400 Body weight 71.31 kg Gerardo Doan MD Work Phone: [facility] 01-17-2021 08:17-0400 Respiratory rate 18 /min Gerardo Doan MD Work Phone: [facility] 01-17-2021 08:17-0400 SaO2% (BldA) [Mass fraction] 99 % Gerardo Doan MD Work Phone: [facility] 03-15-2020 09:24-0400 BMI (Body Mass Index) 29.78 kg/m2 [facility] 03-15-2020 09:24-0400 Body Temperature 97.81 [degF] [facility] 03-15-2020 09:24-0400 Body weight 73.85 kg [facility] 03-15-2020 09:24-0400 BP Diastolic 62 mm[Hg] [facility] 03-15-2020 09:24-0400 BP Systolic 128 mm[Hg] [facility] 03-15-2020 09:24-0400 Height 157.5 cm [facility] 03-11-2019 14:45-0400 BMI (Body Mass Index) 28.9 kg/m2 [facility] 03-11-2019 14:45-0400 Body weight 71.67 kg [facility] 03-11-2019 14:45-0400 BP Diastolic 72 mm[Hg] [facility] 03-11-2019 14:45-0400 BP Systolic 120 mm[Hg] [facility] 03-11-2019 14:45-0400 Height 157.5 cm [facility] Encounters Encounter Date Encounter Type Care Provider Facility Start: 08-20-2024 End: 08-20-2024 Bamboo flowsheet Jeanna KONG Work Phone: [facility] Start: 08-20-2024 End: 08-20-2024 Bamboo flowsheet Jeanna KONG Work Phone: [facility] Start: 08-20-2024 End: 08-20-2024 ambulatory JEANNA ESTES Not Available Start: 08-20-2024 End: 08-20-2024 flow sheet Jeanna KONG Work Phone: [facility] Comment on above: size inconsist ent with dates (Primary Dx); Third trimester ; 37 weeks gestation of Start: 08-12-2024 End: 08-12-2024 flow sheet Eva [...] 08-06-2024 flow sheet Jeanna KONG Work Phone: [facility] Comment on above: 35 weeks gestation o f ; Third trimester ; Anxiety, generalized (CMS/HCC) Start: 08-06-2024 End: 08-06-2024 ambulatory JEANNA ESTES Not Available Start: 08-06-2024 End: 08-06-2024 Clinisync Result Encounter Eva Celso DO Work Phone: [facility] Unsolicited Start: 08-06-2024 End: 08-06-2024 Clinisync Result Encounter Eva Celso DO Work Phone: [facility] Unsolicited Start: 07-16-2024 End: 07-16-2024 Bamboo flowsheet Jeanna KONG Work Phone: [facility] Start: 07-16-2024 End: 07-16-2024 Bamboo flowsheet Jeanna KONG Work Phone: [facility] Start: 07-16-2024 End: 07-16-2024 flow sheet Jeanna KONG Work Phone: [facility] Comment on above: Third trimester preg niko; 32 weeks gestation of Start: 07-16-2024 End: 07-16-2024 ambulatory JEANNA ESTES Not Available Start: 07-02-2024 End: 07-02-2024 Bamboo flowsheet Jeanna KONG Work Phone: [facility] Start: 07-02-2024 End: 07-02-2024 Bamboo flowsheet Jeanna KONG Work Phone: [facility] Start: 07-02-2024 End: 07-02-2024 Periodic preventive med est patient 18-39 yrs Jeanna KONG Work Phone: [facility] Comment on above: Third trimester preg niko; 31 weeks gestation of ; Anemia during in third trimester Start: 07-02-2024 End: 07-02-2024 ambulatory JEANNA ESTES Not Available Start: 06-18-2024 End: 06-18-2024 flow sheet Jeanna KONG Work Phone: [facility] Comment on above: Third trimester preg niko; 28 weeks gestation of ; Anemia during in third trimester; Gestational diabetes mellitus (GDM), antepartum, gestational diabetes method of control unspecified; Elevated glucose tolerance test Start: 06-18-2024 End: 06-18-2024 ambulatory JEANNA ESTES Not Available Start: 06-18-2024 End: 06-18-2024 Bamboo flowsheet Jeanna KONG Work Phone: [facility] Start: 06-18-2024 End: 06-18-2024 Bamboo flowsheet Jeanna KONG Work Phone: [facility] Start: 06-18-2024 ambulatory EVA CELSO [facility] Start: 06-04-2024 End: 06-04-2024 Bamboo flowsheet Eva Celso DO Work Phone: [facility] Start: 06-04-2024 End: 06-04-2024 Bamboo flowsheet Eva Celso DO Work Phone: [facility] Start: 06-04-2024 End: 06-04-2024 flow sheet Eva Celso DO Work Phone: [facility] Comment on above: Second trimester pre gnancy; 26 weeks gestation of ; Elevated glucose tolerance test; Antepartum anemia Start: 06-04-2024 End: 06-04-2024 ambulatory EVA CELSO Not Available Start: 05-28-2024 ambulatory JEANNA ESTES [facility] Start: 05-07-2024 End: 05-07-2024 Bamboo flowsheet Jeanna OKNG Work Phone: [facility] Start: 05-07-2024 End: 05-07-2024 Bamboo flowsheet Jeanna KONG Work Phone: [facility] Start: 05-07-2024 End: 05-07-2024 ambulatory JEANNA ESTES Not Available Start: 05-07-2024 End: 05-07-2024 flow sheet Jeanna KONG Work Phone: [facility] Comment on above: 22 weeks gestation o f ; Second trimester ; Diabetes mellitus screening Start: 04-09-2024 End: 04-09-2024 Bamboo flowsheet Eva Celso DO Work Phone: [facility] Start: 04-09-2024 End: 04-15-2024 Bamboo flowsheet Eva Celso DO Work Phone: [facility] Start: 04-09-2024 End: 04-15-2024 Clinisync Result Encounter Eva Celso DO Work Phone: [facility] External Department Unsolicited Start: 04-09-2024 End: 04-10-2024 External Result Encounter Eva Houston DO Work Phone: [facility] External Department Unsolicited Start: 04-09-2024 End: 04-09-2024 Patient encounter procedure Eva Houston DO Work Phone: [facility] Start: 04-09-2024 End: 04-09-2024 Periodic preventive med est patient 18-39 yrs Eva Houston DO Work Phone: [facility] Comment [...] CAROLINAO Not Available Start: 02-06-2024 ambulatory EVA HOUSTON [facility] Start: 01-23-2024 End: 01-23-2024 ambulatory JEANNA AKHTAREY Not Available Start: 03-27-2023 End: 03-27-2023 Patient encounter status Noni Patel APRN-CASING CREW Work Phone: [facility] Work Phone: Start: 03-27-2023 End: 03-27-2023 Periodic preventive med est patient 18-39 yrs Noni Patel 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 Work Phone: [facility] CERTIFIED WELDING INSPECTOR Comment on above: Encounter for gyneco logical examination without abnormal finding (Primary Dx); Screening for cervical cancer; Encounter for surveillance of contraceptive pills Start: 03-19-2022 End: 03-19-2022 Patient encounter status Lola Kirby APRN-CASING CREW Work Phone: [facility] CERTIFIED WELDING INSPECTOR Start: 03-19-2022 End: 03-19-2022 Periodic preventive med est patient 18-39 yrs Lola Kirby 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 Work Phone: [facility] CERTIFIED WELDING INSPECTOR Comment on above: Encounter for gyneco logical examination without abnormal finding (Primary Dx); Initiation of oral contraception Start: 03-17-2021 End: 03-17-2021 Patient encounter status Lola Kirby 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 Work Phone: [facility] CERTIFIED WELDING INSPECTOR Start: 03-17-2021 End: 03-17-2021 Periodic preventive med est patient 18-39 yrs Lola Kirby 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 Work Phone: [facility] CERTIFIED WELDING INSPECTOR Comment on above: Encounter for gyneco logical examination without abnormal finding (Primary Dx); Encounter for surveillance of contraceptive pills Start: 02-17-2021 End: 02-17-2021 Subsequent hospital visit by physician Gerardo Doan MD Work Phone: [facility] Comment on above: Arrived Start: 02-01-2021 End: 02-01-2021 Office outpatient visit 25 minutes Gerardo Doan MD Work Phone: [facility] Comment on above: Murmur (Primary Dx); History of COVID-19; Abnormal EKG; Generalized anxiety disorder; Fluid level behind tympanic membrane of both ears; Leukocytosis, unspecified type Start: 01-27-2021 End: 01-27-2021 Subsequent hospital visit by physician Gerardo Doan MD Work Phone: [employer] Comment on above: Arrived Start: 01-17-2021 End: [...] patient 18-39 yrs Lola Kirby Work Phone: [facility] CERTIFIED WELDING INSPECTOR Comment on above: Encounter for gyneco logical examination without abnormal finding (Primary Dx); Encounter for surveillance of contraceptive pills Start: 03-11-2019 End: 03-11-2019 Periodic preventive med est patient 18-39 yrs Lola L Kofi Work Phone: [facility] CERTIFIED WELDING INSPECTOR Comment on above: Encounter for gyneco logical examination without abnormal finding (Primary Dx); Encounter for surveillance of contraceptive pills Start: 11-19-2018 End: 11-19-2018 Patient encounter procedure Other Other [facility] Start: 04-25-2018 Patient encounter EMILIANO Seay [facility] Start: 02-19-2018 Patient encounter EMILIANO Seay [facility] Start: 02-13-2018 Patient encounter EMILIANO Seay [facility] Start: 02-15-2017 End: 02-16-2017 Ambulatory LOLA FITZGERALDAM [facility] pital Procedures Date Procedure Procedure Detail Performing Clinician Start: 08-20-2024 Urnls dip stick/tabl et rgnt non-auto w/o micrscp Jeanna KONG Work Phone: Start: 08-12-2024 Urnls dip stick/tabl et rgnt [...] dip stick/tabl et rgnt non-auto w/o micrscp Evalibby Carolinao DO Work Phone: Start: 04-09-2024 IGP,APTIMA HPV,AGE GDLN Evalibby Houston DO Work Phone: Start: 03-17-2021 PAP IG, RFX HPV ASCU Sh iggy Kirby 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 Work Phone: Start: 02-17-2021 Echo tthrc r-t [...] Activity Detail Author Start: 04-19-2027 Tetanus vaccination [facility] Start: 08-20-2024 End: 08-20-2025 US for US OB SCAN FOR GROWTH Imaging Routine size inconsistent with dates Expected: 08/20/2024 (Approximate), Expires: 08/20/2025 [facility] Work Phone: Comment on above: Expected: 08/20/2024 (Approximate), Expi res: 08/20/2025 Start: 08-20-2024 End: 08-20-2024 Patient encounter procedure 08/20/2024 9:50 AM EST Routine [facility] [address] [place] [phone] Jeanna Estes PA [address] [place] [address] [facility] Start: 08-12-2024 End: 08-12-2024 Patient encounter procedure [facility] Comment on above: Arrived Start: 08-06-2024 End: 08-06-2024 Patient encounter procedure 08/06/2024 3:50 PM EST Routine [facility] [address] [place] [phone] Jeanna Estes, PA [address] [place] [address] [facility] Start: 08-06-2024 End: 08-06-2025 CULTURE, GROUP B STREP WITH SUSCEPTIBLITY CULTURE, GROUP B STREP WITH SUSCEPTIBLITY Lab Routine 35 weeks gestation of Third trimester Expected: 08/06/2024, Expires: 08/06/2025 [facility] Work Phone: Comment on above: Expected: 08/06/2024, Expires: Start: 07-16-2024 End: 07-16-2024 Patient encounter procedure 07/16/2024 11:00 AM EST Routine [facility] [address] [place] [phone] Jeanna Estes, PA [address] [place] [address] [place] [address] Arrived [facility] Comment on above: [...] tolerance test Expected: 06/04/2024 (Approximate), Expires: 06/04/2025 [facility] Work Phone: Comment on above: Expected: 06/04/2024 (Approximate), Expi res: 06/04/2025 Start: 06-04-2024 End: 06-04-2024 Patient encounter procedure [facility] Comment on above: Arrived Start: 05-07-2024 End: 05-07-2025 CBC panel - Blood by Automated count CBC Lab Routine Diabetes mellitus screening Expected: 05/07/2024 (Approximate), Expires: 05/07/2025 [facility] Work Phone: Comment on above: Expected: 05/07/2024 (Approximate), Expi res: 05/07/2025 Start: 05-07-2024 End: 05-07-2025 Measurement of glucose 1 hour after glucose challenge for glucose tolerance test Glucose tolerance, 1 hour Lab Routine Diabetes mellitus screening Expected: 05/07/2024 (Approximate), Expires: 05/07/2025 [facility] Comment on above: Expected: 05/07/2024 (Approximate), Expi res: 05/07/2025 Start: 05-07-2024 End: 05-07-2024 Patient encounter procedure 05/07/2024 10:30 AM EDT Routine [facility] [address] [place] [phone] Jeanna Estes PA [address] [place] [address] [facility] Start: 04-23-2024 End: 04-23-2024 Professional / ancillary services management 04/23/2024 8:00 AM EDT Ancillary Procedure [facility] [address] [place] [phone] [facility] Start: 04-09-2024 End: 05-09-2024 [...] AM EDT Routine [facility] [address] [place] [address] Eva Houston DO [address] [place] [address] Arrived [facility] Comment on above: Arrived Start: 04-01-2024 End: 04-01-2024 Patient encounter procedure 04/01/2024 8:50 AM EDT Office Visit [facility] CERTIFIED WELDING INSPECTOR [address] [place] [phone] Noni Patel, 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 [address] [place] [address], [place] [address] [facility] CERTIFIED WELDING INSPECTOR Start: 03-27-2024 Screening for malignant neoplasm of cervix CERVICAL CANCER SCREENING DISCUSSION [facility] Start: 03-29-2023 Influenza vaccination INFLUENZA VACCINE (#1) [facility] Start: 03-21-2023 End: 03-21-2023 Patient encounter procedure 03/21/2023 Office Visit CERTIFIED WELDING INSPECTOR Lola Kirby 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 [id number] [place] [address] [facility] CERTIFIED WELDING INSPECTOR Start: 03-19-2023 Screening for malignant neoplasm of cervix CERVICAL CANCER SCREENING DISCUSSION [facility] Start: 03-29-2022 Influenza vaccination INFLUENZA VACCINE (#1) [facility] Start: 03-23-2022 End: 03-23-2022 Patient encounter procedure 03/23/2022 Office Visit CERTIFIED WELDING INSPECTOR 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 Kirby 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 [id number] [place] [address] [facility] CERTIFIED WELDING INSPECTOR Start: 03-17-2022 Screening for malignant neoplasm of cervix CERVICAL CANCER SCREENING DISCUSSION [facility] Start: 03-29-2021 Influenza vaccination [facility] Start: 03-17-2021 End: 03-17-2021 Patient encounter procedure 03/17/2021 Office Visit CERTIFIED WELDING INSPECTOR 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 Kirby 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 [id number] [place] [address] [facility] CERTIFIED WELDING INSPECTOR Start: 03-17-2021 End: 03-17-2021 Office Visit 03/17/2021 Office Visit CERTIFIED WELDING INSPECTOR 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 Kirby 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 [id number] [place] [address] [facility] CERTIFIED WELDING INSPECTOR Start: 03-15-2021 Screening for malignant neoplasm of cervix CERVICAL CANCER SCREENING DISCUSSION [facility] Start: 02-28-2021 End: 02-28-2021 Patient encounter procedure 02/28/2021 Office Visit Family Medicine Gerardo Doan MD [address] [place] [facility] [place] [phone] [facility] Start: 02-01-2021 End: 02-01-2022 Complete blood count with white cell differential, automated CBC, EDIF, PLATELET Lab Routine Leukocytosis, unspecified type Expected: 02/01/2021, Expires: 02/01/2022 [facility] Comment on above: Expected: 02/01/2021, Expires: 2 Start: 02-01-2021 End: 02-01-2022 Exercise stress echocardiography ECHOCARDIOGRAM TREADMILL STRESS TEST Stress Echocardiography Routine Murmur History of COVID-19 Abnormal EKG Expected: 02/01/2021, Expires: 02/01/2022 [facility] Comment on above: Expected: 02/01/2021, Expires: 2 Start: 02-01-2021 End: 02-01-2021 Patient encounter procedure 02/01/2021 Office Visit Family Medicine Gerardo Doan MD [address] [place] [address] [facility] Start: 01-17-2021 End: 01-17-2022 Standard ECG ECG ECG Routine Lightheadedness Expected: 01/17/2021, Expires: 01/17/2022 [facility] Comment on above: Expected: 01/17/2021, Expires: 2 Start: 06-15-2020 End: 03-15-2021 [place] CYTOLOGY-HEALTH SYSTEMS ANALYST, LIQUID BASED [facility] CYTOLOGY-HEALTH SYSTEMS ANALYST, LIQUID BASED Cytology Routine Encounter for gynecological examination without abnormal finding Expected: 06/15/2020, Expires: 03/15/2021 [facility] Comment on above: Expected: 06/15/2020, Expires: 1 Start: 03-29-2020 Influenza vaccination INFLUENZA VACCINE (#1) [facility] Start: 03-11-2020 Screening for malignant neoplasm of cervix CERVICAL CANCER SCREENING DISCUSSION [facility] Start: 03-29-2019 Influenza vaccination [facility] Start: 03-11-2019 End: 03-11-2020 [place] CYTOLOGY-HEALTH SYSTEMS ANALYST, LIQUID BASED [place] CYTOLOGY-HEALTH SYSTEMS ANALYST, LIQUID BASED Cytology Routine Encounter for gynecological examination without abnormal finding Expected: 03/11/2019, Expires: 03/11/2020 [facility] Comment on above: Expected: 03/11/2019, Expires: 0 Start: 02-20-2019 End: 02-20-2019 Office Visit 02/20/2019 Office Visit CERTIFIED WELDING INSPECTOR Lola Kirby, RAILROAD FIRER/FIREMAN-[facility] [id number] [place] [address] [phone] [facility] CERTIFIED WELDING INSPECTOR Start: 02-18-2019 Screening for malignant neoplasm of cervix PAP SMEAR DISCUSSION [facility] Start: 02-15-2018 Screening for malignant neoplasm of cervix PAP SMEAR DISCUSSION [facility] Start: 01-26-2016 Tetanus vaccination TETANUS [facility] Start: 2013 Third diphtheria, tetanus and acellular pertussis (DTaP) vaccination TDAP (ADULT) [facility] Start: 2010 Screening for Chlamydia trachomatis CHLAMYDIA SCREEN [facility] Start: 2009 HIV screening HIV SCREENING DISCUSSION [facility] Start: 11-09-2007 HIV screening HIV SCREENING DISCUSSION [facility] Start: 2006 COVID-19 VACCINE (1) COVID-19 VACCINE (1) [facility] Start: 05-10-1995 COVID-19 VACCINE (#1) COVID-19 VACCINE (#1) [facility] Start: 1994 GONORRHEA SCREEN GONORRHEA SCREEN [facility] Start: 1994 Hepatitis C antibody, confirmatory test HEPATITIS C VIRUS SCREENING [facility] Start: 1994 Hepatitis C screening HEPATITIS C VIRUS SCREENING [facility] CBC panel - Blood by Automated count CBC Lab Routine Anemia during in third trimester Ordered: 06/18/2024 [facility] Work Phone: Comment on above: Ordered: 06/18/2024 CHLAMYDIA TRACHOMATI S (GENITO/STI) CHLAMYDIA TRACHOMATIS (GENITO/STI) Lab Routine Exposure to STD Ordered: 04/09/2024 [facility] Comment on above: Ordered: 04/09/2024 Cytology Cervical or vaginal smear or scraping study Pap Smear Pathology and Cytology Routine Well woman exam with routine gynecological exam Ordered: 04/09/2024 [facility] Comment on above: Ordered: 04/09/2024 Ferritin [Mass/volum e] in Serum or Plasma Ferritin Lab Routine Anemia during in third trimester Ordered: 07/02/2024 [facility] Work Phone: Comment on above: Ordered: 07/02/2024 Neisseria gonorrhoea e DNA [Presence] in Unspecified specimen by LINO with probe detection Neisseria gonorrhea DNA probe, direct Lab Routine Exposure to STD Ordered: 04/09/2024 [facility] Comment on above: Ordered: 04/09/2024 PAP IG, RFX HPV ASCU PAP IG, RFX HPV ASCU LAB SEND OUTS Routine 03/15/2020 9:50 AM [facility] PAP IG, RFX HPV ASCU PAP IG, RFX HPV ASCU Cytology Routine 03/17/2021 1:55 PM [facility] Work Phone: PAP IG, RFX HPV ASCU PAP IG, RFX HPV ASCU Cytology Routine 03/19/2022 10:06 AM [facility] PAP IG, RFX HPV ASCU PAP IG, RFX HPV ASCU Cytology Routine 03/27/2023 9:25 AM [facility] SURESWAB(R) ADVANCED VAGINITIS PLUS, TMA SURESWAB(R) ADVANCED VAGINITIS PLUS, TMA Pathology and Cytology Routine Exposure to STD Ordered: 04/09/2024 [facility] Work Phone: Comment on above: Ordered: 04/09/2024 Immunizations Immunization Date Immunization Notes Care Provider Pedro rooney 05-20-2019 influenza virus vacc ine, unspecified formulation Lola Kirby [facility] 05-09-2016 influenza virus vacc ine, unspecified formulation Other [facility] 04-24-2012 meningococcal polysaccharide (groups A, C, Y and W-135) diphtheria toxoid conjugate vaccine (MCV4P) Other [facility] 09-02-2007 human papilloma viru s vaccine, bivalent Other [facility] 05-02-2007 human papilloma viru s vaccine, bivalent Other [facility] 02-11-2007 human papilloma viru s vaccine, bivalent Other [facility] 02-11-2007 meningococcal polysaccharide (groups A, C, Y and W-135) diphtheria toxoid conjugate vaccine (MCV4P) Other [facility] 02-11-2007 varicella virus vaccine Other [facility] 01-25-2006 tetanus toxoid, redu cate diphtheria toxoid, and acellular pertussis vaccine, adsorbed Other Other [facility] 03-03-2001 varicella virus vaccine Other Other [facility] 11-14-1999 measles, mumps and r ubella virus vaccine Other Other [facility] 06-15-1996 diphtheria, tetanus toxoids and acellular pertussis vaccine Other Other [facility] 03-10-1996 haemophilus influenz ae type b vaccine, conjugate unspecified formulation Other Other [facility] 03-10-1996 measles, mumps and r ubella virus vaccine Other Other [facility] 08-13-1995 hepatitis B vaccine, pediatric or pediatric/adolescent dosage Other Other [facility] 04-11-1995 poliovirus vaccine, inactivated Other Other [facility] 02-01-1995 hepatitis B vaccine, pediatric or pediatric/adolescent dosage Other Other [facility] 1994 hepatitis B vaccine, pediatric or pediatric/adolescent dosage Other [facility] Payers Date Payer Category Payer Private Health Insurance [employer] [id number] 2021 Unknown [id number] 2021 Unknown [id number] 2016 Unknown 2014 Unknown [id number] 1994 Unknown [id number] [id number]. 983 1994 Unknown [id number]. 983 1994 Unknown [id number] [id number]. 983 1994 Unknown [id number] 2.16.840.1.436825.3.579.2. 1258 1994 Unknown [id number] 2.16.840.1.823837.3.579.2. 1258 1994 Unknown [id number] 2.16.840.1.204226.3.579.2. 1258 1994 Unknown [id number] 2.16.840.1.484837.3.579.2. 1258 1994 Unknown [id number] 2.16.840.1.417431.3.579.2. 1258 1994 Unknown [id number] 2.16.840.1.122989.3.579.2. 1258 1994 Unknown [id number] 2.16.840.1.743980.3.579.2. 1258 1994 Unknown [id number] 2.16.840.1.193896.3.579.2. 1258 1994 Unknown [id number] 2.16.840.1.431697.3.579.2. 1258 1994 Unknown [id number] 2.16.840.1.104127.3.579.2. 1258 1994 Unknown [id number] 2.16.840.1.373906.3.579.2. 1258 1994 Unknown [id number] [id number]. 9 Social History Date Type Detail Facility Start: 03-15-2020 End: 03-27-2023 Tobacco smoking status NHIS Never smoker [facility] Start: 03-15-2020 End: 03-27-2023 Tobacco use and exposure Never used [facility] Start: 03-15-2020 End: 03-27-2023 Alcohol intake Current drinker of alcohol (finding) [facility] Start: 02-03-2020 End: 03-15-2020 History SDOH Alcohol Frequency 2 [facility] Start: 02-18-2018 Alcohol Comment consumes rarely [facility] Start: 1994 Sex Assigned At Not on file [facility] Start: 03-11-2019 End: 03-27-2023 Alcohol intake Yes [facility] Exposure to SARS-CoV -2 (event) Not sure [facility] Start: 03-15-2020 End: 03-27-2023 History of Social function [facility] How often to you hav e a drink containing alcohol? Monthly or less [facility] Average Number of Drinks Not on file [facility] Start: 01-03-2024 Gender identity Identifies as female gender (finding) [facility] Tobacco smoking stat [facility] Tobacco smoking consumption unknown [facility] Start: 12-13-2023 [facility] Start: 1994 Sex assigned at Female [facility] Medical Equipment Procedure Code Equipment Code Equipment Origin al Text Equipment Identifier Dates 1 strip by In Vi tro route Daily Use in the morning prior to breakfast, 1 hour after each meal for a total of 4times daily. [id number] Start: 06-18-2024 End: 07-18-2024 1 each by In Vit ro route Daily Use to check FSBS four times daily [id number] Start: 06-18-2024 End: 07-18-2024 Goals Date Patient Goal Desired Activity /State Personal health goal Comment on above: 1. The patient will have orthotics that allow her to return to all normal activities with minimal to no restriction d/t right foot and knee pain. Clinical Notes 01-17-2021 to 08-20-2024 DILAN Mcadams - 08/20/2024 9:50 AM Isabella Valentino LPN - 08/12/2024 2:20 PM DILAN Desai - 08/06/2024 3:50 PM Annetta Wood MA - 07/16/2024 11:00 AM DILAN Desai - 07/02/2024 9:30 AM EST Note Date & Type Note Facility 08-20-2024 History of Presen t illness Narrative Reason [...] Once as needed Blood Glucose Monitoring Suppl ([employer] Glucometer) w/Device kit 1 kit, Does not [...] was 11/29/2023. ASSESSMENT & PLAN ICD-10-CM 1. size inconsistent with dates O26.849 US OB SCAN FOR GROWTH 2. Third trimester Z34.93 POCT urinalysis dipstick manually resulted 3. 37 weeks gestation of Z3A.37 Return OB: Patient presents today for a routine obstetrics appointment. Patient is currently 37w6d . Patient states she is doing well but has complaints of being tired due to current . Patient has verbalizes frequent movement. labor precautions was discussed/given and patient was instructed to perform kick counts three times a day. Orders Placed This Encounter Procedures US OB SCAN FOR GROWTH POCT urinalysis dipstick manually resulted Follow Up: Patient is to return to office in 1 week for routine OB appointment. Documented by DILAN Mcadams on behalf of: DILAN Mcadams documented in this encounter [facility] 08-12-2024 History of Presen t illness Narrative [...] nursing note reviewed. Exam conducted with a gas pump attendant present. Vitals: There is no height or [...] Eva Houston DO documented in this encounter [facility] 08-06-2024 History of Presen t illness Narrative [...] Once as needed Blood Glucose Monitoring Suppl ([employer] Glucometer) w/Device kit 1 kit, Does not [...] nursing note reviewed. Exam conducted with a gas pump attendant present. Vitals: There is no height or [...] of: DILAN Mcadams documented in this encounter [facility] 07-16-2024 History of Presen t illness Narrative [...] Once as needed Blood Glucose Monitoring Suppl ([employer] Glucometer) w/Device kit 1 kit, Does not [...] nursing note reviewed. Exam conducted with a gas pump attendant present. Vitals: There is no height or [...] would like to have infusions completed at [facility]. Orders Placed This Encounter Procedures POCT urinalysis dipstick manually resulted Follow Up: Patient is to return to office in 2 week for routine OB appointment. Documented by Bree Wood MA on behalf of: DILAN Mcadams documented in this encounter [facility] 07-02-2024 History of Presen t illness [...] Once as needed Blood Glucose Monitoring Suppl ([facility] Glucometer) w/Device kit 1 kit, Does not [...] of: DILAN Mcadams documented in this encounter [facility] 06-18-2024 History of Presen t illness [...] Once as needed Blood Glucose Monitoring Suppl ([employer] Glucometer) w/Device kit 1 kit, Does not [...] of: DILAN Mcadams documented in this encounter [facility] 06-04-2024 History of Presen t illness [...] nursing note reviewed. Exam conducted with a gas pump attendant present. Vitals: There is no height or [...] Eva Houston DO documented in this encounter [facility] 05-07-2024 History of Presen t illness [...] nursing note reviewed. Exam conducted with a gas pump attendant present. Vitals: There is no height or [...] of: DILAN Mcadams documented in this encounter [facility] 04-09-2024 History of Presen t illness [...] nursing note reviewed. Exam conducted with a gas pump attendant present. Vitals: There is no height or [...] Eva Houston DO documented in this encounter [facility] 03-27-2023 History of Presen t illness [...] for cervical cancer Pap collected - [facility], LIQUID BASED 3. Encounter for surveillance of contraceptive pills Doing well tri-cycling. No contraindicating dx. I will send in new script with refills to pharmacy of patient's choice. Patient advised to contact the office with any concerns. Patient voiced understanding of all instructions. Return in about 1 year (around 03/27/2024) for Annual with Noni lew. Thank you. . documented in this encounter [facility] 03-19-2022 History of Presen t illness Narrative [...] Pap w/ HPV rfx ASCUS ordered. - [facility] SYSTEMS ANALYST, LIQUID BASED 2. Initiation of oral contraception - norgestimate-ethinyl estradiol 0.25-35 MG-MCG tablet; Take 1 tablet by mouth daily. Dispense: 84 tablet; Refill: 3 Return in about 1 year (around 03/19/2023) for Annual wellness. documented in this encounter [facility] 03-17-2021 History of Presen t illness Narrative [...] Social Gatherings with Friends and Family: Attends Sikh Services: Active Member of Clubs or Organizations: [...] Pap w/ HPV rfx ASCUS ordered. - [facility] ANALYST, LIQUID BASED 2. Encounter for surveillance of contraceptive pills - levonorgestrel-ethinyl estradiol (Quasense) 0.15-0.03 MG tablet; Take one tablet by mouth daily. Dispense: 91 tablet; Refill: 3 Return in about 1 year (around 03/17/2022) for Annual wellness. documented in this encounter [facility] 02-01-2021 History of Presen t illness Narrative [...] another episode of fainting while shopping at [employer]. She has a hx of iron deficiency, she has not been taking iron regularly, so she restarted this for one week. She notes that she was feeling pretty good again. She felt that she was tired all of the time, had another episode while at [employer] Saturday01/15/21. She has a high resting heart [...] Social Gatherings with Friends and Family: Attends Sikh Services: Active Member of Clubs or Organizations: [...] Assessment: Physical Exam documented in this encounter [facility] 01-17-2021 History of Presen t illness Narrative [...] another episode of fainting while shopping at [employer]. She has a hx of iron deficiency, she has not been taking iron regularly, so she restarted this for one week. She notes that she was feeling pretty good again. She felt that she was tired all of the time, had another episode while at [employer] Saturday01/15/21. She has a high resting heart [...] Social Gatherings with Friends and Family: Attends Sikh Services: Active Member of Clubs or Organizations: [...] Assessment: Physical Exam documented in this encounter [facility] 01-17-2021 Miscellaneous Notes Addended by: MAKAYLA KILGORE on: 01/17/2021 03:15 PM Modules accepted: Orders documented in this encounter [facility] Evaluation note Diagnosis Lightheadedness- Primary Dizziness and [...] blood loss (chronic) [facility] Lightheadedness Dizziness and giddiness [facility] Diagnosis Murmur- Primary Undiagnosed cardiac murmurs History of COVID-19 Abnormal EKG Nonspecific abnormal electrocardiogram (ECG) (EKG) Generalized anxiety disorder Fluid level behind tympanic membrane of both ears Leukocytosis, unspecified type [facility] Diagnosis Murmur Undiagnosed cardiac murmurs History of COVID-19 Abnormal EKG Nonspecific abnormal electrocardiogram (ECG) (EKG) [facility] Diagnosis Encounter for gynecological examination without abnormal finding- Primary Routine gynecological examination Encounter for surveillance of contraceptive pills Surveillance of previously prescribed contraceptive pill [facility] Diagnosis Encounter for gynecological examination without abnormal finding- Primary Routine gynecological examination Initiation of oral contraception [facility] Diagnosis Encounter for gynecological examination without abnormal finding- Primary Routine gynecological examination Screening for cervical cancer Screening for malignant neoplasm of the cervix Encounter for surveillance of contraceptive pills Surveillance of previously prescribed contraceptive pill [facility] Diagnosis 22 weeks gestation of Second trimester state, incidental Diabetes mellitus screening Screening for diabetes mellitus [facility] Diagnosis Second trimester state, incidental [...] glucose tolerance test [facility] [...] [facility] Diagnosis size inconsistent with dates- Primary Third trimester state, incidental 37 weeks gestation of documented in this encounter [facility] Summary Purpose Family History No Family History Records FoundNo Family History Records FoundNo Family History Records FoundNo Family History Records Found Advance Directives No Advanced Directives Records FoundNo Advanced Directives Records FoundNo Advanced Directives Records FoundNo Advanced Directives Records Found History of Present Illness * 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 Encounter for surveillance [...] file Gets together: Not on file Attends oriental orthodox service: Not on file Active member of [...] w/ HPV rfx ASCUS ordered - [facility]ST, LIQUID BASED; Future 2. Encounter for surveillance [...] Procedures ECG Gerardo Doan MD [address] [place] [address] Status Reason Specialty Diagnoses / Procedures Referred By Contact Referred To Contact Auth Not Needed Cardiovascular Medicine Diagnoses Murmur History of COVID-19 Abnormal EKG Procedures ECHOCARDIOGRAM TREADMILL STRESS TEST RI ECHO TTHRC R-T 2D W/WO M-MODE REST&STRS CONT ECG RI DOPPLER ECHO HEART,LIMITED,F/ U RI DOPPLER COLOR FLOW VELOCITY MAP Gerardo Doan MD [address] [place] [address] [facility] Echocardiograp hy [address] [place] [address] Status Reason Specialty Diagnoses / Procedures Referred By Contact Referred To Contact Closed Cardiovascular Medicine Diagnoses Murmur History of COVID-19 Abnormal EKG Procedures ECHOCARDIOGRAM TREADMILL STRESS TEST RI ECHO TTHRC R-T 2D W/WO M-MODE REST&STRS CONT ECG RI DOPPLER ECHO HEART,LIMITED,F/U RI DOPPLER COLOR FLOW VELOCITY MAP Gerardo Doan MD [address] [place] [address] [facility] Echocardiograph y [address] [place] [address] Additional Source Comments INFORMATION SOURCE (unrecogn ized section and content) DATE CREATED AUTHOR 01/22/2018 [facility] DATE CREATED AUTHOR AUTHOR'S ORGANIZ ATION 05/27/2018 [facility] DATE CREATED AUTHOR AUTHOR'S ORGANIZ ATION 07/17/2024 [facility] DATE CREATED AUTHOR AUTHOR'S ORGANIZ ATION 08/22/2024 [facility] EPIC Reason for Visit (unrecogniz ed section and content) Reason Comments Annual Exam Pap 03/11/19 wnl Reason Comments Annual Exam Pap 02/18/18 wnl Want s to discuss ocp Reason Comments Rapid Heart Rate Status Reason Specialty Diagnoses / Procedures Referred By Contact Referred To Contact New Request Diagnoses Lightheadedness Procedures ECG Gerardo Doan MD [address] [facility] [place] [address] Reason Comments Dizziness 2 week f/u Status Reason Specialty Diagnoses / Procedures Referred By Contact Referred To Contact Closed Cardiovascular Medicine Diagnoses Murmur History of COVID-19 Abnormal EKG Procedures ECHOCARDIOGRAM TREADMILL STRESS TEST RI ECHO TTHRC R-T 2D W/WO M-MODE REST&STRS CONT ECG RI DOPPLER ECHO HEART,LIMITED,F/U RI DOPPLER COLOR FLOW VELOCITY MAP Gerardo Doan MD [address] [place] [address] [facility] Echocardiograph y [address] [place] [address] Reason Comments Annual Exam Pap 03/15/20 NILM [...] Care Teams (unrecognized sec tion and content) Landscape Supervisor Relationship Specialty Start Date End Date Gerardo Doan MD PCP - General Family Medicine 12/21/16 Landscape Supervisor Relationship Specialty Start Date End Date Gerardo Doan MD PCP - General Family Medicine 12/21/16 Landscape Supervisor Relationship Specialty Start Date End Date Gerardo [...] BE BASED ON THE PRIMARY CLINICAL RECORDS. [employer] [facility]. provides no warranty or guarantee of the accuracy or completeness of information in this document.
== END 2024-08-22 08:56 | disposition home or self-care (01) ==
LOC: US 08:55
PROVIDERS: Visit Provider Physician Assistant
DX: O26.849 Uterine size-date discrepancy, unspecified trimester (principal); Z3A.38 38 weeks gestation of pregnancy
CPT/HCPCS: 76816

== ENCOUNTER 2024-08-30 04:45 | Inpatient (IN) | payer OTHER, SELFPAY ==
[2024-08-30] VITALS (72 sets, daily range): BP systolic 104–157; BP diastolic 55–120; PULSE 75–136; TEMP 36–37.7; O2SAT 96–100
--- OUTSIDE RECORDS SUMMARY | 2024-08-30 04:48 | XMS_ITS | CCD ---
Author Organization [facility] [place] [facility] Care Team Providers Care Parachute Line Tier Name Role Phone LOLA KIRBY Unavailable Unavailable [...] Care Provider Colton Doanah Primary Care Provider [phone] Jessenia [place] Primary Care Provider Jessenia MIRANDA [place] Primary Care Provider Jessenia MIRANDA [place] Primary Care Provider Unavailable Primary Care Provider [...] Glucose Monitoring Suppl (D-Care Glucometer) w/Device kit (20 sources) Start: 06-18-2024 End: 06-18-2025 Blood Glucose [...] Active isopropyl alcohol 0.7 ml/ml medicated pad (20 sources) Start: 06-18-2024 Alcohol Swabs (Alcohol Prep [...] of ] 07-16-2024 Episodic Residual codes; unclassified (15 sources) Gestation period, 35 weeks; Translations: [35 weeks gestation of ] Onset: 08-06-2024 08-06-2024 Episodic Residual codes; unclassified (2 sources) Gestation period, 36 weeks; Translations: [36 weeks gestation of ] 08-12-2024 Episodic Residual codes; unclassified (2 sources) Gestation period, 37 weeks; Translations: [37 weeks gestation of ] 08-20-2024 Episodic Residual codes; unclassified (2 sources) Gestation period, 38 weeks; Translations: [38 weeks gestation of ] 08-27-2024 Episodic Unclassified (16 sources) Encounter for screening [...] Facil ity Urinalysis macro (dipstick) panel (U)on 08-27-2024 Bilirubin, UA Negative Negative - 4(70) +++ mg/dL [facility] Blood, UA Negative Negative - 50 Milo/mcL [facility] Clarity, UA Clear [facility] Color, UA Yellow [facility] Glucose, UA Negative Negative - 2000(110) ++++ mg/dL [facility] Interpretation and review of laboratory results Abnormal [facility] Ketones, UA Positive Negative - 160(16) ++++ mg/dL [facility] Comment on above: 15 Leukocytes, UA Trace Negative - 500+++ Sonu/mcL [facility] Nitrite, UA Negative Negative - Positive [facility] pH, UA 7 5 - 9 [facility] Protein, UA Negative Negative - 2000(20) ++++ mg/dL [facility] Spec Grav, UA 1.02 1 - 1.03 [facility] Urobilinogen, UA 0.2 0.2 - 12 mg/dL [facility] OB GROWTHon 08-23-[address] [address] Ultrasound Report Signed Patient: NIALL HAILE MR#: [id number] : 1995 Acct:[id number] Age/Sex: 28 / F ADM Date: 08/22/24 Loc: US Attending Dr: Jeanna Estes Ordering Physician: Jeanna Estes Date of Service: 08/22/24 Procedure(s): US OB growth Accession Number(s): [id number] cc: Jeanna Estes; Physician,Non-Staff M.DViral The [address] [address] Patient Name: NIALL HAILE MRN: [facility]:[id number] date: 1995 Sex: F Assigned Patient Location: US Current Patient Location: Accession/Order Number: [id number] Exam Date: 08/22/2024 09:00 Report Date: 08/23/2024 00:13 At the request of: JEANNA ESTES Procedure: US OB growth EXAMINATION: US OB growth HISTORY: SIZE INCONSISTENT WITH DATES O26.849 COMPARISON: Ultrasound OB growth 07/16/2024 FINDINGS: Heart Rate: 158.82 bpm Amniotic Fluid Volume: 24.3 cm; greater than 95th percentile Number: 1 Position: CEPHALIC BIOMETRY: BPD: 9.45 cm; 38 weeks 4 days; 82.40 % HC: 34.89 cm; 40 weeks 4 days; 84.20 % AC: 35.64 cm; 39 weeks 4 days; 93.70 % FL: 6.60 cm; 34 weeks 0 days; < 3 % EFW: 3466.36 g; 68.60 % FL/AC: 18.52 FL/BPD: 69.80 HC/AC: 0.98 GESTATIONAL AGE: Age by EDC: 38 weeks 1 day URSULA by EDC: 2024-09-04 Age by US: 38 weeks 1 day URSULA by US: 2024-09-04 US/US OB growth IMPRESSION: 1. Single live intrauterine with growth detailed above. 2. Femur length is < 3rd percentile. 3. Polyhydramnios. Electronically authenticated by: KIKO LANDERS Date: 08/23/2024 00:13 Dictated By: Kiko Landers M.D. Signed By: 08/23/2414 DD/ TD/TT: Skeiner: [facility] Radiology, Radiologist, MD - 08/25/2024 The [place] [id number] Ultrasound Report Signed Patient: NIALL HAILE MR#: [id number] : 1995 Acct:[id number] Age/Sex: 28 / F ADM Date: 08/22/24 Loc: US Attending Dr: Jeanna Estes Ordering Physician: Jeanna Estes Date of Service: 08/22/24 Procedure(s): US OB growth Accession Number(s): [id number] cc: Jeanna Estes; Physician,Non-Staff Mihir [address] [address] Patient Name: NIALL HAILE MRN: [id number] date: 1995 Sex: F Assigned Patient Location: US Current Patient Location: Accession/Order Number: [id number] Exam Date: 08/22/2024 09:00 Report Date: 08/23/2024 00:13 At the request of: JEANNA ESTES Procedure: US OB growth EXAMINATION: US OB growth HISTORY: SIZE INCONSISTENT WITH DATES O26.849 COMPARISON: Ultrasound OB growth 07/16/2024 FINDINGS: Heart Rate: 158.82 bpm Amniotic Fluid Volume: 24.3 cm; greater than 95th percentile Number: 1 Position: CEPHALIC BIOMETRY: BPD: 9.45 cm; 38 weeks 4 days; 82.40 % HC: 34.89 cm; 40 weeks 4 days; 84.20 % AC: 35.64 cm; 39 weeks 4 days; 93.70 % FL: 6.60 cm; 34 weeks 0 days; < 3 % EFW: 3466.36 g; 68.60 % FL/AC: 18.52 FL/BPD: 69.80 HC/AC: 0.98 GESTATIONAL AGE: Age by EDC: 38 weeks 1 day URSULA by EDC: 2024-09-04 Age by US: 38 weeks 1 day RUSULA by US: 2024-09-04 US/US OB growth IMPRESSION: 1. Single live intrauterine with growth detailed above. 2. Femur length is < 3rd percentile. 3. Polyhydramnios. Electronically authenticated by: KIKO LANDERS Date: 08/23/2024 00:13 Dictated By: Kiko Landers M.D. Signed By: 08/23/2414 DD/ TD/TT: Skeiner: [facility] Radiology Study observation (narrative) [facility] OB GROWTHOrdered By: Valerie ologist Radiology on 08-23-2024 [facility] Work Phone: Urinalysis macro (dipstick) panel (U)on 08-20-2024 Bilirubin, UA Negative Negative - 4(70) +++ mg/dL [facility] Blood, UA Negative Negative - 50 Milo/mcL [facility] Clarity, UA Clear [facility] Color, UA Yellow [facility] Glucose, UA Negative Negative - 1999(110) ++++ mg/dL [facility] Interpretation and review of laboratory results Abnormal [facility] Ketones, UA Positive Negative - 160(16) ++++ mg/dL [facility] Leukocytes, UA Negative Negative - 500+++ Sonu/mcL [facility] Nitrite, UA Trace Negative - Positive [facility] pH, UA 7 5 - 9 [facility] Protein, UA Negative Negative - 1999(20) ++++ mg/dL [facility] Spec Grav, UA 1.015 1 - 1.03 [facility] Urobilinogen, UA 0.2 0.2 - 12 mg/dL [facility] Urinalysis macro (dipstick) panel (U)on 08-12-2024 Bilirubin, UA Negative Negative - 4(70) +++ mg/dL [facility] Blood, UA Negative Negative - 50 Milo/mcL [facility] Clarity, UA Clear [facility] Color, UA Yellow [facility] Glucose, UA Negative Negative - 1999(110) ++++ mg/dL [facility] Interpretation and review of laboratory results Normal [facility] Ketones, UA Negative Negative - 160(16) ++++ mg/dL [facility] Leukocytes, UA Negative Negative - 500+++ Sonu/mcL [facility] Nitrite, UA Negative Negative - Positive [facility] pH, UA 7 5 - 9 [facility] Protein, UA Negative Negative - 1999(20) ++++ mg/dL [facility] Spec Grav, UA 1.01 1 - 1.03 [facility] Urobilinogen, UA 0.2 0.2 - 12 mg/dL [facility] ALL CBC WITH AUTO DIFFon BASOPHILS ABSOLUTE AUTO 0 [facility] Basophils/100 WBC (Bld) 0.2 % 0.2 - 2.0 % [facility] Eosinophils/100 WBC (Bld) 0.4 % Low 0.9 - 7.0 % [facility] Erythrocyte distribution width (RBC) [Ratio] 15.6 % High 11.0 - 15.0 % [facility] Hematocrit (Bld) [Volume fraction] 33.4 % Low 36.0 - 48.0 % [facility] Hemoglobin (Bld) [Mass/Vol] 10.7 g/dL Low 12.0 - 16.0 g/dL [facility] IMMATURE GRANULOCYTES ABS AUTO 0.31 High [facility] Immature granulocytes/100 WBC (Bld) 2 % High 0.0 - 0.5 % [facility] Interpretation and review of laboratory results Abnormal [facility] LYMPHOCYTES ABSOLUTE AUTO 2.2 [facility] Lymphocytes/100 WBC (Bld) 13.8 % Low 20.5 - 60.0 % [facility] MCH (RBC) [Entitic mass] 30.4 pg 26.7 - 34.0 pg [facility] MCHC (RBC) [Mass/Vol] 32 g/dL 29.9 - 35.2 g/dL [facility] MCV (RBC) [Entitic vol] 94.9 fL 81.0 - 99.0 fL [facility] MONOCYTES ABSOLUTE AUTO 1.3 High [facility] Monocytes/100 WBC (Bld) 8 % 1.7 - 12.0 % [facility] NEUTROPHILS ABSOLUTE AUTO 11.9 High [facility] Neutrophils/100 WBC (Bld) 75.6 % High 43.0 - 75.0 % [facility] Platelet mean volume (Bld) [Entitic vol] 10.2 fL 9.5 - 13.5 fL [facility] TB EO # 0.1 [facility] PLT 346 [facility] RBC 3.52 Low [facility] WBC 15.7 High [facility] Urinalysis macro (dipstick) panel (U)on 08-06-2024 Bilirubin, UA Negative Negative - 4(70) +++ mg/dL [facility] Blood, UA Negative Negative - 50 Milo/mcL [facility] Clarity, UA Clear [facility] Color, UA Yellow [facility] Glucose, UA Negative Negative - 2000(110) ++++ mg/dL [facility] Interpretation and review of laboratory results Abnormal [facility] Ketones, UA Positive Negative - 160(16) ++++ mg/dL [facility] Comment on above: 40 Leukocytes, UA Moderate Negative - 500+++ Sonu/mcL [facility] Nitrite, UA Negative Negative - Positive [facility] pH, UA 7 5 - 9 [facility] Protein, UA Negative Negative - 1999(20) ++++ mg/dL [facility] Spec Grav, UA 1.015 1 - 1.03 [facility] Urobilinogen, UA 0.2 0.2 - 12 mg/dL [facility] Urinalysis macro (dipstick) panel (U)on 07-16-2024 Bilirubin, UA Negative Negative - 4(70) +++ mg/dL [facility] Blood, UA Negative Negative - 50 Milo/mcL [facility] Clarity, UA Clear [facility] Color, UA Yellow [facility] Glucose, UA Negative Negative - 1999(110) ++++ mg/dL [facility] Interpretation and review of laboratory results Abnormal [facility] Ketones, UA Positive Negative - 160(16) ++++ mg/dL [facility] Comment on above: trace Leukocytes, UA Positive Negative - 500+++ Sonu/mcL [facility] Comment on above: small Nitrite, UA Negative Negative - Positive [facility] pH, UA 6 5 - 9 [facility] Protein, UA Negative Negative - 1999(20) ++++ mg/dL [facility] Spec Grav, UA 1.02 1 - 1.03 [facility] Urobilinogen, UA 0.2 0.2 - 12 mg/dL [facility] Urinalysis macro (dipstick) panel (U)on 07-02-2024 Bilirubin, UA Negative Negative - 4(70) +++ mg/dL [facility] Blood, UA Negative Negative - 50 Milo/mcL [facility] Clarity, UA Clear [facility] Color, UA Yellow [facility] Glucose, UA Negative Negative - 1999(110) ++++ mg/dL [facility] Interpretation and review of laboratory results Abnormal [facility] Ketones, UA Positive Negative - 160(16) ++++ mg/dL [facility] Leukocytes, UA Many Negative - 500+++ Sonu/mcL [facility] Nitrite, UA Negative Negative - Positive [facility] pH, UA 7 5 - 9 [facility] Protein, UA Negative Negative - 1999(20) ++++ mg/dL [facility] Spec Grav, UA 1.02 1 - 1.03 [facility] Urobilinogen, UA 1.0 0.2 - 12 mg/dL [facility] FAX REQUESTon 06-18-2024 FAX TO [phone] Normal [facility] Comment on above: Result Comment: Test ing performed at [place] [address] Performed By: #### F X #### [place] [address] GTT 3HR GESTATIONALon 2023 Glucose [Mass/Vol] 57 mg/dL Low 65-140 [facility] Comment on above: Result Comment: Test ing performed at [place] [address] Performed By: #### F X #### [place] [address] Glucose [Mass/Vol] 140 mg/dL Normal 65-165 [facility] Comment on above: Result Comment: Test ing performed at [place] [address] Performed By: #### F X #### [place] [address] Glucose [Mass/Vol] 210 mg/dL High 65-190 [facility] Comment on above: Result Comment: Test ing performed at [place] [address] Performed By: #### F X #### [place] [address] Glucose [Mass/Vol] 96 mg/dL Normal <100 [facility] Comment on above: Result Comment: Test ing performed at [place] [address] Performed By: #### F X #### [place] [address] Urinalysis macro (dipstick) panel (U)on 06-04-2024 Bilirubin, UA Negative Negative - 4(70) +++ mg/dL [facility] Blood, UA Positive Negative - 50 Milo/mcL [facility] Comment on above: trace Clarity, UA Clear [facility] Color, UA Yellow [facility] Glucose, UA Negative Negative - 2000(110) ++++ mg/dL [facility] Interpretation and review of laboratory results Abnormal [facility] Ketones, UA Negative Negative - 160(16) ++++ mg/dL [facility] Leukocytes, UA Positive Negative - 500+++ Sonu/mcL [facility] Comment on above: small Nitrite, UA Negative Negative - Positive [facility] pH, UA 7 5 - 9 [facility] Protein, UA Negative Negative - 2000(20) ++++ mg/dL [facility] Spec Grav, UA 1.015 1 - 1.03 [facility] Urobilinogen, UA 0.2 0.2 - 12 mg/dL [facility] CBCon 05-28-2024 ABSOLUTE BAS 0.0 10*3/uL Normal 0.0-0.2 [facility] Comment on above: Result Comment: Test ing performed at [place] [address] Performed By: #### F X #### [place] [address] ABSOLUTE EOS 0.0 10*3/uL Normal 0.0-0.7 [facility] Comment on above: Performed By: #### F X #### [place] [address] ABSOLUTE NEUTROPHIL COUNT 11.0 10*3/uL High 1.4-6.5 [facility] Comment on above: Performed By: #### F X #### [place] [address] Basophils/100 WBC (Bld) 0.1 % Normal 0.0-2.0 [facility] Comment on above: Performed By: #### F X #### [place] [address] DTYPE AUTO DIFF Normal [facility] Comment on above: Performed By: #### F X #### Testing performed at [place] [id number] Eosinophils/100 WBC (Bld) 0.2 % Normal 0.0-11.0 [facility] Comment on above: Performed By: #### F X #### [place] [address] Lymphocytes (Bld) [#/Vol] 1.4 10*3/uL Normal 1.2-3.4 [facility] Comment on above: Performed By: #### F X #### Testing performed at [address] [address] Lymphocytes/100 WBC (Bld) 10.8 % Low 20.0-55.0 [facility] Comment on above: Performed By: #### F X #### Testing performed at [address] [address] Monocytes (Bld) [#/Vol] 0.6 10*3/uL Normal 0.0-0.7 [facility] Comment on above: Performed By: #### F X #### Testing performed at [address] [address] Monocytes/100 WBC (Bld) 4.2 % Normal 0.0-10.0 [facility] Comment on above: Performed By: #### F X #### Testing performed at [address] [address] Neutrophils/100 WBC (Bld) 84.7 % High 37.0-75.0 [facility] Comment on above: Performed By: #### F X #### Testing performed at [address] [address] Erythrocyte distribution width (RBC) [Ratio] 13.3 % Normal 11.5-14.5 [facility] Comment on above: Performed By: #### F X #### Testing performed at [address] [address] Hematocrit (Bld) [Volume fraction] 29.4 % Low 36.0-48.0 [facility] Comment on above: Performed By: #### F X #### Testing performed at [address] [address] Hemoglobin (Bld) [Mass/Vol] 10.0 g/dL Low 12.0-16.0 [facility] Comment on above: Performed By: #### F X #### Testing performed at [address] [address] MCH (RBC) [Entitic mass] 31.4 pg Normal 26.0-35.0 [facility] Comment on above: Performed By: #### F X #### Testing performed at [place] [id number] MCHC (RBC) [Mass/Vol] 34.1 g/dL Normal 27.0-37.0 [facility] Comment on above: Performed By: #### F X #### Testing performed at [place] [id number] MCV (RBC) [Entitic vol] 92.0 fL Normal 80.0-100.0 [facility] Comment on above: Performed By: #### F X #### [place] [address] Platelet mean volume (Bld) [Entitic vol] 7.2 fL Low 7.4-11.0 [facility] Comment on above: Performed By: #### F X #### [place] [address] Platelets (Bld) [#/Vol] 403 10*3/uL High 130-400 [facility] Comment on above: Performed By: #### F X #### [place] [address] RBC (Bld) [#/Vol] 3.20 10*6/uL Low 4.0-5.4 [facility] Comment on above: Performed By: #### F X #### [place] [address] WBC (Bld) [#/Vol] 13.0 10*3/uL High 3.6-11.0 [facility] Comment on above: Performed By: #### F X #### Testing performed at [place] [id number] FAX REQUESTon 05-28-2024 FAX TO [phone] Normal [facility] Comment on above: Result Comment: CONCHITA ECTED ON 05/28 AT 1651: PREVIOUSLY REPORTED [phone] Performed By: #### F X #### Testing performed at [facility] [address] [place] [address] GLUCOSE 1 HR PCon 05-28-2024 Glucose [Mass/Vol] 146 mg/dL Normal 65-200 [facility] Comment on above: Result Comment: Test ing performed at [place] [address] Performed By: #### F X #### Testing performed at [facility] [address] [place] [address] Urinalysis macro (dipstick) panel (U)on 05-07-2024 Bilirubin, UA Negative Negative - 4(70) +++ mg/dL [facility] Blood, UA Negative Negative - 50 Milo/mcL [facility] Clarity, UA Clear [facility] Color, UA Yellow [facility] Glucose, UA Negative Negative - 1999(110) ++++ mg/dL [facility] Interpretation and review of laboratory results Abnormal [facility] Ketones, UA Negative Negative - 160(16) ++++ mg/dL [facility] Leukocytes, UA Trace Negative - 500+++ Sonu/mcL [facility] Nitrite, UA Negative Negative - Positive [facility] pH, UA 7.0 5 - 9 [facility] Protein, UA Negative Negative - 1999(20) ++++ mg/dL [facility] Spec Grav, UA 1.010 1 - 1.03 [facility] Urobilinogen, UA 0.2 0.2 - 12 mg/dL [facility] IGP,APTIMA HPV,AGE GDLNon AGE GDLN ACOG TESTING Note . [facility] Comment on above: TESTS RESULT FLAG UN ITS REF RANGE LAB Clinician Provided Cytology Information Source.............Cervix No. of containers..01 ThinPrep Vial Age Algo ACOG Viktoria... FLAG LEGEND: L-Low Normal,H-High Normal,LL-Alert Low,HH-Alert High <-Panic Low,>-Panic High,A-Abnormal,AA-Critical Abnormal Performed at: 01 =G [facility] [address] [facility] [place] [address] Kayleen Nielson MD, IGP, RFX APTIMA HPV ASCU Note . [facility] Comment on above: TESTS RESULT FLAG UN ITS REF RANGE LAB DIAGNOSIS: 02 NEGATIVE FOR INTRAEPITHELIAL LESION OR MALIGNANCY. Specimen adequacy: 02 Satisfactory for evaluation. No endocervical component is identified. Performed by: Shelby Adames, Basket Machine Operator ([facility]) . 02 Note: Note 02 The Pap [...] <-Panic Low,>-Panic High,A-Abnormal,AA-Critical Abnormal Performed at: [address] [address] Kayleen Nielson MD, Performed at: = - [facility] [id number] Supervisor [employer]: Kayleen Nielson MD, Phone: [phone] Performed at: [facility] [id number] Supervisor [employer]: Kayleen Nielson MD, Phone: [phone] SPATULA-ALONE CERVIX [facility] URETHRITIS/DISCHARGE PLUS VA GINITIS (HTRX)on 04-10-2024 ATOPOBIUM VAGINAE 0.000 [facility] ATOPOBIUM VAGINAE Not detected [facility] BVAB 2,3 (BACTERIAL VAGINOSIS ASSOCIATED BACTERIA 2, 3); MOBILUNCUS SPP 0.000 [facility] BVAB 2,3 (BACTERIAL VAGINOSIS ASSOCIATED BACTERIA 2, 3); MOBILUNCUS SPP Not detected [facility] OMER ALBICANS, PARAPSILOSIS, TROPICALIS 0.000 [facility] OMER ALBICANS, PARAPSILOSIS, TROPICALIS Not detected [facility] OMER GLABRATA 0.000 [facility] OMER GLABRATA Not detected [facility] OMER KRUSEI 0.000 [facility] OMER KRUSEI Not detected [facility] CHLAMYDIA TRACHOMATIS 0.000 [facility] CHLAMYDIA TRACHOMATIS Not detected [facility] GARDNERELLA VAGINALIS 0.000 [facility] GARDNERELLA VAGINALIS Not detected [facility] MEGASPHAERA (TYPES 1, 2) 0.000 [facility] MEGASPHAERA (TYPES 1, 2) Not detected [facility] MYCOPLASMA GENITALIUM 0.000 [facility] MYCOPLASMA GENITALIUM Not detected [facility] NEISSERIA GONORRHOEAE 0.000 [facility] NEISSERIA GONORRHOEAE Not detected [facility] TRICHOMONAS VAGINALIS 0.000 [facility] TRICHOMONAS VAGINALIS Not detected [facility] Urinalysis macro (dipstick) panel (U)on 04-09-2024 Bilirubin, UA Negative Negative - 4(70) +++ mg/dL [facility] Blood, UA Negative Negative - 50 Milo/mcL [facility] Clarity, UA Cloudy [facility] Color, UA Yellow [facility] Glucose, UA Negative Negative - 1999(110) ++++ mg/dL [facility] Interpretation and review of laboratory results Abnormal [facility] Ketones, UA Negative Negative - 160(16) ++++ mg/dL [facility] Leukocytes, UA Positive Negative - 500+++ Sonu/mcL [facility] Nitrite, UA Negative Negative - Positive [facility] Comment on above: small pH, UA 8.0 5 - 9 [facility] Protein, UA Negative Negative - 2000(20) ++++ mg/dL [facility] Spec Grav, UA 1.020 1 - 1.03 [facility] Urobilinogen, UA 0.2 0.2 - 12 mg/dL [facility] RPRon 02-10-2024 Reagin Ab RPR Ql (S) Non-Reactive Normal NONREACTIVE A [facility] Comment on above: Result Comment: Test ing performed at [place] [address] Performed By: #### R UBL, ACBC, FX, GHIV, ARPR #### [place] [address] RUBELLA SCREENon 02-10-2024 RUBELLA SCREEN Positive Normal POSITIVE [facility] Comment on above: Result Comment: POSI TIVE RESULT INDICATES PRESUMED IMMUNITY Testing performed at [place] [address] Performed By: #### R UBL, ACBC, FX, GHIV, ARPR #### Testing performed at [place] [address] HEP B SURFACE AGon HEP B SURFACE AG Negative Normal NEGATIVE [facility] Comment on above: Performed By: #### F X #### [place] [address] HEP C ABon 02-07-2024 HEP C AB Negative Normal NEGATIVE [facility] Comment on above: Performed By: #### F X #### [place] [address] CBCon 02-06-2024 ABSOLUTE BAS 0.0 10*3/uL Normal 0.0-0.2 [facility] Comment on above: Result Comment: Test ing performed at [place] [address] Performed By: #### R UBL, ACBC, FX, GHIV, ARPR #### [place] [address] ABSOLUTE EOS 0.1 10*3/uL Normal 0.0-0.7 [facility] Comment on above: Performed By: #### R UBL, ACBC, FX, GHIV, ARPR #### [place] [address] ABSOLUTE NEUTROPHIL COUNT 9.0 10*3/uL High 1.4-6.5 [facility] Comment on above: Performed By: #### R UBL, ACBC, FX, GHIV, ARPR #### [place] [address] Basophils/100 WBC (Bld) 0.2 % Normal 0.0-2.0 [facility] Comment on above: Performed By: #### R UBL, ACBC, FX, GHIV, ARPR #### [place] [address] DTYPE AUTO DIFF Normal [facility] Comment on above: Performed By: #### R UBL, ACBC, FX, GHIV, ARPR #### [place] [address] Eosinophils/100 WBC (Bld) 0.6 % Normal 0.0-11.0 [facility] Comment on above: Performed By: #### R UBL, ACBC, FX, GHIV, ARPR #### [place] [address] Lymphocytes (Bld) [#/Vol] 2.2 10*3/uL Normal 1.2-3.4 [facility] Comment on above: Performed By: #### R UBL, ACBC, FX, GHIV, ARPR #### [place] [address] Lymphocytes/100 WBC (Bld) 18.4 % Low 20.0-55.0 [facility] Comment on above: Performed By: #### R UBL, ACBC, FX, GHIV, ARPR #### [place] [address] Monocytes (Bld) [#/Vol] 0.8 10*3/uL High 0.0-0.7 [facility] Comment on above: Performed By: #### R UBL, ACBC, FX, GHIV, ARPR #### [place] [address] Monocytes/100 WBC (Bld) 6.3 % Normal 0.0-10.0 [facility] Comment on above: Performed By: #### R UBL, ACBC, FX, GHIV, ARPR #### [place] [address] Neutrophils/100 WBC (Bld) 74.5 % Normal 37.0-75.0 [facility] Comment on above: Performed By: #### R UBL, ACBC, FX, GHIV, ARPR #### [place] [address] Erythrocyte distribution width (RBC) [Ratio] 13.5 % Normal 11.5-14.5 [facility] Comment on above: Performed By: #### R UBL, ACBC, FX, GHIV, ARPR #### [place] [address] Hematocrit (Bld) [Volume fraction] 36.2 % Normal 36.0-48.0 [facility] Comment on above: Performed By: #### R UBL, ACBC, FX, GHIV, ARPR #### [place] [address] Hemoglobin (Bld) [Mass/Vol] 12.0 g/dL Normal 12.0-16.0 [facility] Comment on above: Performed By: #### R UBL, ACBC, FX, GHIV, ARPR #### [place] [address] MCH (RBC) [Entitic mass] 29.6 pg Normal 26.0-35.0 [facility] Comment on above: Performed By: #### R UBL, ACBC, FX, GHIV, ARPR #### [place] [address] MCHC (RBC) [Mass/Vol] 33.0 g/dL Normal 27.0-37.0 [facility] Comment on above: Performed By: #### R UBL, ACBC, FX, GHIV, ARPR #### [place] [address] MCV (RBC) [Entitic vol] 89.7 fL Normal 80.0-100.0 [facility] Comment on above: Performed By: #### R UBL, ACBC, FX, GHIV, ARPR #### [place] [address] Platelet mean volume (Bld) [Entitic vol] 6.9 fL Low 7.4-11.0 [facility] Comment on above: Performed By: #### R UBL, ACBC, FX, GHIV, ARPR #### [place] [address] Platelets (Bld) [#/Vol] 406 10*3/uL High 130-400 [facility] Comment on above: Performed By: #### R UBL, ACBC, FX, GHIV, ARPR #### [place] [address] RBC (Bld) [#/Vol] 4.04 10*6/uL Normal 4.0-5.4 [facility] Comment on above: Performed By: #### R UBL, ACBC, FX, GHIV, ARPR #### [place] [address] WBC (Bld) [#/Vol] 12.1 10*3/uL High 3.6-11.0 [facility] Comment on above: Performed By: #### R UBL, ACBC, FX, GHIV, ARPR #### [place] [address] FAX REQUESTon 02-06-2024 FAX TO [phone] [facility] Comment on above: Result Comment: Test ing performed at [place] [address] Performed By: #### F X #### [place] [address] FAX TO [phone] [facility] Comment on above: Result Comment: Test ing performed at [place] [address] Performed By: #### F X #### [place] [address] FAX TO [phone] [facility] Comment on above: Result Comment: Test ing performed at [place] [address] Performed By: #### F X #### [place] [address] FAX TO [phone] [facility] Comment on above: Result Comment: Test ing performed at [place] [address] Performed By: #### F X, HA1CT #### [place] [address] FAX TO [phone] [facility] Comment on above: Result Comment: Test ing performed at [place] [address] Performed By: #### R UBL, ACBC, FX, GHIV, ARPR #### [place] [address] HEMOGLOBIN A1Con 02-06-2024 Glucose [Mass/Vol] 100 mg/dL Normal [facility] Comment on above: Result Comment: Test ing performed at [place] [address] Performed By: #### F X, HA1CT #### [place] [address] HbA1c (Bld) [Mass fraction] 5.1 % Normal 0-6 [facility] Comment on above: Result Comment: NORMAL <5.7% PREDIABETES 5.7-6.4% DIABETES 6.5% OR HIGHER Performed By: #### F X, HA1CT #### [place] [address] HIV 1,2 ABon 02-06-2024 HIV 1,2 Non-Reactive Normal NONREACTIVE [facility] Comment on above: Result Comment: Test ing performed at [place] [address] Performed By: #### R UBL, ACBC, FX, GHIV, ARPR #### [place] [address] TYPE AND SCREEN CROSSMATCH C ONVERTIBLEon 02-06-2024 TYPE AND SCREEN CROSSMATCH CONVERTIBLE WORKUP EXPIRES 02/09/2024,2359 ABO/RH(D) O POSITIVE ANTIBODY SCREEN NEGATIVE ARM BAND NUMBER [id number] Testing performed at [place] [address] Normal [facility] Comment on above: Performed By: #### T SCC #### [place] [address] URINE CULTUREon 02-06-2024 Bacteria identified Cx Nom (U) SPECIMEN DESCRIPTION URINE CLEAN CATCH CULTURE NO PATHOGENS ISOLATED * Result Note: Testing performed at [place] [address] * REPORT STATUS 02/08/2024 * Result Note: FINAL * Normal [facility] Comment on above: Performed By: #### A URNC #### [place] [address] ECHOCARDIOGRAM TREADMILL STR ESS TESTOrdered By: Gerardo [...] were monitored. An Echocardiogram was performed by aviation technician aircraft in four stages in quad fashion. At peak stress, four selected images were obtained and placed side by side with resting images for comparison. Stress Test Details Test: Exercise stress testing was performed using a Rodger protocol. HR Resting HR: 109 bpm Max Heart Rate (APMHR): 194.289778 bpm Max HR Achieved: 200 bpm Target HR (85% APMHR): 164.883355 bpm % of APMHR: 103.09 Recovery HR: [...] 13.70 METs Scale: Active Angina Score: None Zerista User, Interfaces - 02/18/2021 12:14 AM EDT [...] were monitored. An Echocardiogram was performed by aviation technician aircraft in four stages in quad fashion. At peak stress, four selected images were obtained and placed side by side with resting images for comparison. Stress Test Details Test: Exercise stress testing was performed using a Rodger protocol. HR Resting HR: 109 bpmMax Heart Rate (APMHR): 194.712874 bpm Max HR Achieved: 200 bpmTarget HR (85% APMHR): 164.350922 bpm % of APMHR: 103.09 Recovery HR: [...] 13.70 METs Scale: Active Angina Score: None [facility] ECGOrdered By: Gerardo Doan on 01-27-2021 [facility] B12 & FOLATEOrdered By: Yessy Doan on 01-17-2021 Cobalamin (Vitamin B12) [Mass/Vol] 383 pg/mL 239 - 931 PG/ML [facility] Folate [Mass/Vol] 19.7 ng/mL [facility] Comment on above: Testing performed at [place] [id number] [facility] CBC, EDIF, PLATELETOrdered B y: Gerardo Doan on 01-17-2021 ABSOLUTE BASOPHIL COUNT 0.1 10*3/uL 0.0 - 0.2 10*3/uL [facility] Comment on above: Testing performed at [place] [address] Basophils/100 WBC (Bld) 0.4 % 0.0 - 2.0 % [facility] Differential cell count method Nom (Bld) AUTO DIFF % [facility] Eosinophils (Bld) [#/Vol] 0.10 10*3/uL 0.0 - 0.7 10*3/uL [facility] Eosinophils/100 WBC (Bld) 0.6 % 0.0 - 11.0 % [facility] Erythrocyte distribution width (RBC) [Ratio] 13.2 % 11.5 - 14.5 % [facility] Hematocrit (Bld) [Volume fraction] 39.3 % 36.0 - 48.0 % [facility] Hemoglobin (Bld) [Mass/Vol] 13.6 g/dL [facility] Interpretation and review of laboratory results Abnormal [facility] Lymphocytes (Bld) [#/Vol] 1.90 10*3/uL 1.2 - 3.4 10*3/uL [facility] Lymphocytes/100 WBC (Bld) 13.6 % Low 20.0 - 55.0 % [facility] MCH (RBC) [Entitic mass] 31.1 pg 26.0 - 35.0 PG [facility] MCHC (RBC) [Mass/Vol] 34.7 g/dL [facility] MCV (RBC) [Entitic vol] 89.6 fL [facility] Monocytes (Bld) [#/Vol] 0.5 10*3/uL 0.0 - 0.7 10*3/uL [facility] Monocytes/100 WBC (Bld) 3.5 % 0.0 - 10.0 % [facility] Neutrophils (Bld) [#/Vol] 11.3 10*3/uL High 1.4 - 6.5 10*3/uL [facility] Neutrophils/100 WBC (Bld) 81.9 % High 37.0 - 75.0 % [facility] Platelet mean volume (Bld) [Entitic vol] 7.6 fL [facility] Platelets (Bld) [#/Vol] 483 10*3/uL High 130.0 - 400.0 10*3/uL [facility] RBC (Bld) [#/Vol] 4.38 10*6/uL 4.0 - 5.4 10*6/uL [facility] WBC (Bld) [#/Vol] 13.8 10*3/uL High 3.6 - 11.0 10*3/uL [facility] COMPREHENSIVE METABOLIC PANE LOrdered By: Gerardo Doan on 01-17-2021 Albumin [Mass/Vol] 4.6 G/dl 3.5 - 5.0 G/dl [facility] Albumin/Globulin [Mass ratio] 1.4 {ratio} [facility] ALP [Catalytic activity/Vol] 57 U/L [facility] ALT [Catalytic activity/Vol] 18 U/L <35 IU/L [facility] AST [Catalytic activity/Vol] 21 U/L [facility] Bilirubin [Mass/Vol] 0.4 mg/dL [facility] Calcium [Mass/Vol] 10.3 mg/dL High [facility] Chloride [Moles/Vol] 106 mmol/L [facility] Comment on above: Please note: Triglyc eride levels of 600mg/dL or higher may positively bias chloride results by approximately 2.1 mmol CO2 [Moles/Vol] 21 mmol/L Low [facility] Creatinine [Mass/Vol] 0.50 mg/dL Low [facility] GFR COMMENT Average GFR for 20-2 9 years old = 116. [facility] Comment on above: Chronic Kidney disea se, GFR = <60. Kidney failure, GFR = <15. The GFR estimate is not adjusted for extreme body surface area or acute process, nor has it been validated for women or ethnic groups other than and . Testing performed at [place], [place] [address] GFR/1.73 sq M.predicted among blacks MDRD (S/P/Bld) [Vol rate/Area] mL/min/{1.73_m2} ml/min/1.73sq.m [facility] GFR/1.73 sq M.predicted among non-blacks MDRD (S/P/Bld) [Vol rate/Area] mL/min/{1.73_m2} ml/min/1.73sq.m [facility] Glucose post fast [Mass/Vol] 105 mg/dL High [facility] Comment on above: NORMAL <100 mg/dL PREDIABETES 101-126 mg/dL DIABETES 126 mg/dL or higher Interpretation and review of laboratory results Abnormal [facility] Potassium [Moles/Vol] 4.1 mmol/L [facility] Protein [Mass/Vol] 8.0 g/dL [facility] Sodium [Moles/Vol] 138 mmol/L [facility] Urea nitrogen [Mass/Vol] 8 mg/dL [facility] HEMOGLOBIN [id number] By: Sa edi Doan on 01-17-2021 Glucose [Mass/Vol] 100 mg/dL [facility] Comment on above: Testing performed at [place], [place] [address] HbA1c (Bld) [Mass fraction] 5.1 % 0 - 6 % [facility] Comment on above: NORMAL <5.7% PREDIABETES 5.7-6.4% DIABETES 6.5% OR HIGHER [facility] IRON/IRON BINDING/TRANSFERRI NOrdered By: Gerardo Doan on 01-17-2021 Interpretation and review of laboratory results Abnormal [facility] Iron [Mass/Vol] 145 ug/dL [facility] Iron binding capacity [Mass/Vol] 505 High [facility] Iron saturation [Mass fraction] 29 % [facility] Comment on above: Testing performed at [address] TSHOrdered By: Gerardo Doan on 01-17-2021 TSH Qn 1.420 m[IU]/L [facility] Comment on above: Testing performed at [address] PROGRESSon 04-25-2018 [facility] NOTES Normal [facility] PROGRESSon 02-19-2018 [facility] NOTES Normal [facility] PROGRESSon 02-13-2018 [facility] NOTES Normal [facility] PAP, ThinPrep, rfx HPV ASCUS on 02-15-2017 Comment Normal [facility] Comment on above: Result Comment: IGLB P CPT CODE AUTOMATION: (NOTE)IGLBP CPT CODE AUTOMATION: This liquid based ThinPrep(R) pap test was screenedwith theIGLBP CPT CODE AUTOMATION: use of an image guided system. Performed By: #### L PRAS ####[facility] [address] [place] [address] lab Director: Dr. Lauro Merino DO Diagnosis Normal [facility] Comment on above: Result Comment: Comm ent(NOTE)NEGATIVE FOR INTRAEPITHELIAL LESION AND MALIGNANCY.CELLULAR CHANGES ASSOCIATED WITH INFLAMMATION ARE PRESENT.THIS SPECIMEN WAS RESCREENED PART OF OUR CEO ZIFF DAVIS PROGRAM. Performed By: #### L PRAS ####[facility] [address] [place] [address] lab Director: Dr. Lauro Merino DO IGLBP CPT COde Comment Normal [facility] Comment on above: Performed By: #### L PRAS ####[facility] [id number] [place] [address] lab Director: Dr. Lauro Merino, Note [facility] Comment on above: Result Comment: Comm ent(NOTE)The Pap smear is a screening test designed to aid in the detection ofpremalignant and malignant conditions of the uterine cervix. It isnot a diagnostic procedure and should not be used as the sole meansof detecting cervical cancer. Both false-positive and false-negativereports do occur. Performed By: #### L PRAS ####[facility] [id number] [place] [address] Lab Director: Dr. Lauro Merino DO Performed By Comment Kareen Lucero, Basket Machine Operator [facility] Comment on above: Performed By: #### L PRAS ####[facility] [address] [place] [address] Lab Director: Dr. Lauro Merino DO Performed By [facility] Comment on above: Performed By: #### L PRAS ####[facility] [id number] [place] [id number] Lab Director: Dr. Lauro Merino DO QC Reviewed By Comment Dedra Yip , Supervisory Basket Machine Operator (ASCP) [facility] Comment on above: Performed By: #### L PRAS ####[facility] [id number] [place] [id number] Lab Director: Dr. Lauro Merino DO Spec Adequacy [facility] Comment on above: Result Comment: Comm ent(NOTE)Satisfactory for evaluation. Endocervical and/or squamous metaplasticcells (endocervical component) are present. Performed By: #### L PRAS ####[facility] [id number] [place] [id number] Lab Director: Dr. Lauro Merino, Specimen # [id number] [facility] Comment on above: Performed By: #### L PRAS ####[facility] [id number] [place], [place] [id number] Lab Director: Dr. Lauro Merino DO . [facility] Comment on above: Result Comment: Comm ent(NOTE)The HPV DNA reflex criteria were not met with this specimen resulttherefore, no HPV testing was performed.No. of containers..01 CYTYC Thin Prep [facility]ialPERFORMED AT [facility] Performed By: #### L PRAS ####[facility] [id number] [place] [address] lab Director: Dr. Lauro Merino DO . . [facility] Comment on above: Performed By: #### L PRAS ####[facility] [id number] [place] [address] lab Director: Dr. Lauro Merino DO Vital Signs Date Time Vital Sign Value Performing Clinician Facility 08-27-2024 08:22-0500 Body weight 75.75 kg Eva Celso DO Work Phone: [facility] 08-27-2024 08:22-0500 Diastolic blood pressure 74 mm[Hg] Eva Celso DO Work Phone: [facility] 08-27-2024 08:22-0500 Systolic blood pressure 122 mm[Hg] Eva Celso DO Work Phone: [facility] 08-20-2024 10:27-0500 Body weight 75.3 kg Jeanna KONG Work Phone: [facility] 08-20-2024 10:27-0500 Diastolic blood pressure 72 mm[Hg] Jeanna KONG Work Phone: [facility] 08-20-2024 10:27-0500 Systolic blood pressure 120 mm[Hg] Jeanna KONG Work Phone: [facility] 08-12-2024 14:32-0500 Body weight 76.11 kg Eva Celso DO Work Phone: [facility] 08-12-2024 14:32-0500 Diastolic blood pressure 66 mm[Hg] Eva Celso DO Work Phone: [facility] 08-12-2024 14:32-0500 Systolic blood pressure 124 mm[Hg] Eva Celso DO Work Phone: [facility] 08-06-2024 15:49-0500 Body weight 76.11 kg Jeanna Meera PA Work Phone: [facility] 08-06-2024 15:49-0500 Diastolic blood pressure 70 mm[Hg] Jeanna [place] PA Work Phone: [facility] 08-06-2024 15:49-0500 Systolic blood pressure 120 mm[Hg] Jeanna [place] PA Work Phone: [facility] 07-16-2024 11:01-0500 Body weight 75.75 kg Jeanna [place] PA Work Phone: [facility] 07-16-2024 11:01-0500 Diastolic blood pressure 72 mm[Hg] Jeanna Meera PA Work Phone: [facility] 07-16-2024 11:01-0500 Systolic blood pressure 116 mm[Hg] Jeanna Meera PA Work Phone: [facility] 07-02-2024 10:02-0500 Body weight 75.93 kg Jeanna Meera PA Work Phone: [facility] 07-02-2024 10:02-0500 Diastolic blood pressure 70 mm[Hg] Jeanna [place] PA Work Phone: [facility] 07-02-2024 10:02-0500 Systolic blood pressure 112 mm[Hg] Jeanna Meera PA Work Phone: [facility] 06-18-2024 15:14-0500 Body weight 76.11 kg Jeanna Meera PA Work Phone: [facility] 06-18-2024 15:14-0500 Diastolic blood pressure 76 mm[Hg] Jeanna Meera PA Work Phone: [facility] 06-18-2024 15:14-0500 Systolic blood pressure 114 mm[Hg] Jeanna [place] PA Work Phone: [facility] 06-04-2024 11:00-0500 Body weight 75.3 kg Eva Celso DO Work Phone: [facility] 06-04-2024 11:00-0500 Diastolic blood pressure 72 mm[Hg] Eva Celso DO Work Phone: [facility] 06-04-2024 11:00-0500 Systolic blood pressure 118 mm[Hg] Eva Celso DO Work Phone: [facility] 05-07-2024 10:50-0400 Body weight 76.11 kg Jeanna KONG Work Phone: [facility] 05-07-2024 10:50-0400 Diastolic blood pressure 70 mm[Hg] Jeanna KONG Work Phone: [facility] 05-07-2024 10:50-0400 Systolic blood pressure 120 mm[Hg] Jeanna KONG Work Phone: [facility] 04-09-2024 09:14-0400 Body weight 73.94 kg Eva Celso DO Work Phone: [facility] 04-09-2024 09:14-0400 Diastolic blood pressure 72 mm[Hg] Eva Celso DO Work Phone: [facility] 04-09-2024 09:14-0400 Systolic blood pressure 120 mm[Hg] Eva Celso DO Work Phone: [facility] 03-27-2023 09:16-0400 Body height 157.5 cm Ami Hay SAND POLISHER-VARIETY PERFORMER Work Phone: [facility] 03-27-2023 09:16-0400 Body mass index (BMI) [Ratio] 29.26 kg/m2 Ami Hay SAND POLISHER-VARIETY PERFORMER Work Phone: [facility] 03-27-2023 09:16-0400 Body weight 72.58 kg Ami Hay SAND POLISHER-VARIETY PERFORMER Work Phone: [facility] 03-27-2023 09:16-0400 Diastolic blood pressure 64 mm[Hg] Ami Hay SAND POLISHER-VARIETY PERFORMER Work Phone: [facility] 03-27-2023 09:16-0400 Systolic blood pressure 110 mm[Hg] Noni Patel SAND POLISHER-VARIETY PERFORMER Work Phone: [facility] 03-19-2022 10:05-0400 Body height 157.5 cm Lola Kirby SAND POLISHER-VARIETY PERFORMER Work Phone: [facility] 03-19-2022 10:05-0400 Body mass index (BMI) [Ratio] 30.91 kg/m2 Lola Kofi SAND POLISHER-VARIETY PERFORMER Work Phone: [facility] 03-19-2022 10:05-0400 Body weight 76.66 kg Lola Kofi SAND POLISHER-VARIETY PERFORMER Work Phone: [facility] 03-19-2022 10:05-0400 Diastolic blood pressure 66 mm[Hg] Lola Kofi SAND POLISHER-VARIETY PERFORMER Work Phone: [facility] 03-19-2022 10:05-0400 Systolic blood pressure 122 mm[Hg] Lola Kofi SAND POLISHER-VARIETY PERFORMER Work Phone: [facility] 03-17-2021 13:57-0400 Body height 157.5 cm Lola Kofi SAND POLISHER-VARIETY PERFORMER Work Phone: [facility] 03-17-2021 13:57-0400 Body mass index (BMI) [Ratio] 28.9 kg/m2 Lola Kofi SAND POLISHER-VARIETY PERFORMER Work Phone: [facility] 03-17-2021 13:57-0400 Body weight 71.67 kg Lola Kofi SAND POLISHER-VARIETY PERFORMER Work Phone: [facility] 03-17-2021 13:57-0400 Diastolic blood pressure 76 mm[Hg] Lola Kofi SAND POLISHER-VARIETY PERFORMER Work Phone: [facility] 03-17-2021 13:57-0400 Systolic blood pressure 122 mm[Hg] Lola Kofi SAND POLISHER-VARIETY PERFORMER Work Phone: [facility] 02-01-2021 07:05-0400 Body height 157.5 cm Gerardo Doan MD Work Phone: [facility] 02-01-2021 07:05-0400 Body mass index (BMI) [Ratio] 29.07 kg/m2 Gerardo Doan MD Work Phone: [facility] 02-01-2021 07:05-0400 Body temperature 98.4 [degF] Gerardo Doan MD Work Phone: [facility] 02-01-2021 07:05-0400 Body weight 72.12 kg Gerardo Doan MD Work Phone: [facility] 02-01-2021 07:05-0400 Diastolic blood pressure 84 mm[Hg] Gerardo Doan MD Work Phone: [facility] 02-01-2021 07:05-0400 Heart rate 127 /min Gerardo Doan MD Work Phone: [facility] 02-01-2021 07:05-0400 Respiratory rate 18 /min Gerardo Doan MD Work Phone: [facility] 02-01-2021 07:05-0400 SaO2% (BldA) [Mass fraction] 99 % Gerardo Doan MD Work Phone: [facility] 02-01-2021 07:05-0400 Systolic blood pressure 130 mm[Hg] Gerardo Doan MD Work Phone: [facility] 01-17-2021 09:37-0400 Diastolic blood pressure 80 mm[Hg] Gerardo Doan MD Work Phone: [facility] 01-17-2021 09:37-0400 Heart rate 111 /min Gerardo Doan MD Work Phone: [facility] 01-17-2021 09:37-0400 Systolic blood pressure 130 mm[Hg] Gerardo Doan MD Work Phone: [facility] 01-17-2021 08:17-0400 Body height 157.5 cm Gerardo Doan MD Work Phone: [facility] 01-17-2021 08:17-0400 Body mass index (BMI) [Ratio] 28.74 kg/m2 Gerardo Doan MD Work Phone: [facility] 01-17-2021 08:17-0400 Body temperature 98.6 [degF] Gerardo Doan MD Work Phone: [facility] 01-17-2021 08:17-0400 Body weight 71.31 kg Gerardo Doan MD Work Phone: [facility] 01-17-2021 08:17-0400 Respiratory rate 18 /min Gerardo Doan MD Work Phone: [facility] 01-17-2021 08:17-0400 SaO2% (BldA) [Mass fraction] 99 % Gerardo Doan MD Work Phone: [facility] 03-15-2020 09:24-0400 BMI (Body Mass Index) 29.78 kg/m2 [facility] 03-15-2020 09:24-0400 Body Temperature 97.81 [degF] [facility] 03-15-2020 09:24-0400 Body weight 73.85 kg [facility] 03-15-2020 09:24-0400 BP Diastolic 62 mm[Hg] [facility] 03-15-2020 09:24-0400 BP Systolic 128 mm[Hg] [facility] 03-15-2020 09:24-0400 Height 157.5 cm [facility] [facility] 03-11-2019 14:45-0400 BMI (Body Mass Index) 28.9 kg/m2 [facility] 03-11-2019 14:45-0400 Body weight 71.67 kg [facility] 03-11-2019 14:45-0400 BP Diastolic 72 mm[Hg] [facility] 03-11-2019 14:45-0400 BP Systolic 120 mm[Hg] [facility] 03-11-2019 14:45-0400 Height 157.5 [facility] En[facility] Date Encounter Type Care Provider Facility Start: 08-27-2024 End: 08-27-2024 Bamboo flowsheet Eva Celso DO Work Phone: [facility] Start: 08-27-2024 End: 08-27-2024 Bamboo flowsheet Eva Celso DO Work Phone: [facility] Start: 08-27-2024 End: 08-27-2024 flow sheet Eva Celso DO Work Phone: [facility] Comment on above: Third trimester preg niko; 38 weeks gestation of Start: 08-27-2024 End: 08-27-2024 ambulatory EVA CELSO Not Available Start: 08-23-2024 End: 08-25-2024 Clinisync Result Encounter Jeanna KONG Work Phone: [facility] Unsolicited Start: 08-23-2024 End: 08-25-2024 Clinisync Result Encounter Jeanna KONG Work Phone: [facility] Unsolicited Start: 08-20-2024 End: 08-20-2024 Bamboo flowsheet Jeanna [...] patient 18-39 yrs Jeanna KONG Work Phone: [facility] Comment on above: Third trimester preg niko; 31 weeks gestation of ; Anemia during in third trimester Start: 07-02-2024 End: 07-02-2024 ambulatory JEANNA ESTES Not Available Start: 06-18-2024 End: 06-18-2024 flow sheet Jeanna KONG Work Phone: [facility] Comment on above: Third trimester preg niko; 28 weeks gestation of ; Anemia during in third trimester; Gestational diabetes mellitus (GDM), antepartum, gestational diabetes method of control unspecified; Elevated glucose tolerance test Start: 06-18-2024 End: 06-18-2024 ambulatory JEANNA ESTES Not Available Start: 06-18-2024 End: 06-18-2024 Bamboo flowsheet Jeanna KONG Work Phone: [facility] Start: 06-18-2024 End: 06-18-2024 Bamboo flowsheet Jeanna KONG Work Phone: [facility] Start: 06-18-2024 [facility]ulatory [facility] Start: 06-04-2024 End: 06-04-2024 Bamboo flowsheet Eva Celso DO Work Phone: [facility] Start: 06-04-2024 End: 06-04-2024 Bamboo flowsheet Eva Celso DO Work Phone: [facility] Start: 06-04-2024 End: 06-04-2024 flow sheet Eva Celso DO Work Phone: [facility] Comment on above: Second trimester pre gnancy; 26 weeks gestation of ; Elevated glucose tolerance test; Antepartum anemia Start: 06-04-2024 End: 06-04-2024 ambulatory EVA CELSO Not Available Start: 05-28-2024 ambulatory [facility] Start: 05-07-2024 End: 05-07-2024 Bamboo flowsheet Jeanna KONG Work Phone: [facility] Start: 05-07-2024 End: 05-07-2024 Bamboo flowsheet Jeanna KONG Work Phone: [facility] Start: 05-07-2024 End: 05-07-2024 ambulatory JEANNA ESTES Not Available Start: 05-07-2024 End: 05-07-2024 flow sheet Jeanna KONG Work Phone: [facility] Comment on above: 22 weeks gestation o f ; Second trimester ; Diabetes mellitus screening Start: 04-09-2024 End: 04-09-2024 Bamboo flowsheet Eva Celso DO Work Phone: [facility] Start: 04-09-2024 End: 04-15-2024 Bamboo flowsheet Eva Celso DO Work Phone: [facility] Start: 04-09-2024 End: 04-15-2024 Clinisync Result Encounter Eva Celso DO Work Phone: [facility] External Department Unsolicited Start: 04-09-2024 End: 04-10-2024 External Result Encounter Eva Celso DO Work Phone: [facility] External Department Unsolicited Start: 04-09-2024 End: 04-09-2024 Patient encounter procedure Eva Celso DO Work Phone: [facility] Healthcare Start: 04-09-2024 End: 04-09-2024 Periodic preventive med est patient 18-39 yrs Eva Celso DO Work Phone: [facility] Comment on above: Well woman exam with routine gynecological exam; Exposure to STD; Second trimester ; Need for maternal serum alpha-protein (MSAFP) screening; Screening, , for anatomic survey Start: 04-09-2024 End: 04-09-2024 ambulatory EVA CELSO Not Available Start: 03-12-2024 End: 03-12-2024 ambulatory JEANNA ESTES Not Available Start: 02-13-2024 End: 02-13-2024 ambulatory EVA HOUSTON Not Available Start: 02-06-2024 ambulatory EV[facility] CELSO [facility] Start: 01-23-2024 End: 01-23-2024 ambulatory JEANNA ESTES Not Available Start: 03-27-2023 End: 03-27-2023 Patient encounter status Noni Patel SAND POLISHER-VARIETY PERFORMER Work Phone: [facility] Work Phone: Start: 03-27-2023 End: 03-27-2023 Periodic preventive med est patient 18-39 yrs Noni Patel SAND POLISHER-VARIETY PERFORMER Work Phone: [employer] Comment on above: Encounter for gyneco logical examination without abnormal finding (Primary Dx); Screening for cervical cancer; Encounter for surveillance of contraceptive pills Start: 03-19-2022 End: 03-19-2022 Patient encounter status Lola Kirby SAND POLISHER-VARIETY PERFORMER Work Phone: [employer] Start: 03-19-2022 End: 03-19-2022 Periodic preventive med est patient 18-39 yrs Lola Kirby [employer]Gr[employer] Work Phone: [employer] Comment on above: Encounter for gyneco logical examination without abnormal finding (Primary Dx); Initiation of oral contraception Start: 03-17-2021 End: 03-17-2021 Patient encounter status Lola Kirby SAND POLISHER-VARIETY PERFORMER Work Phone: [employer] Start: 03-17-2021 End: 03-17-2021 Periodic preventive med est patient 18-39 yrs Lola Stokes Kofi [employer] Work Phone: [employer] Comment on above: Encounter for gyneco logical examination without abnormal finding (Primary Dx); Encounter for surveillance of contraceptive pills Start: 02-17-2021 End: 02-17-2021 Subsequent hospital visit by physician Gerardo Doan MD Work Phone: [employer] [facility] Comment on above: Arrived Start: 02-01-2021 End: 02-01-2021 Office outpatient visit 25 minutes Gerardo Doan MD Work Phone: [facility] Comment on above: Murmur (Primary Dx); History of COVID-19; Abnormal EKG; Generalized anxiety disorder; Fluid level behind tympanic membrane of both ears; Leukocytosis, unspecified type Start: 01-27-2021 End: 01-27-2021 Subsequent hospital visit by physician Gerardo Doan MD Work Phone: [employer] Comment on above: Arrived Start: 01-17-2021 End: 01-17-2021 Office outpatient visit 25 minutes Gerardo Doan MD Work Phone: [facility] Comment on above: Lightheadedness (Jaycee mandi Dx); Screening for condition; BMI 28.0-28.9,adult; Irregular periods/menstrual cycles; Menorrhagia with regular cycle; Fluid level behind tympanic membrane of both ears; Iron deficiency anemia due to chronic blood loss Start: 03-15-2020 End: 03-15-2020 Periodic preventive med est patient 18-39 yrs Lola Kirby Work Phone: [employer] Comment on above: Encounter for gyneco logical examination without abnormal finding (Primary Dx); Encounter for surveillance of contraceptive pills Start: 03-11-2019 End: 03-11-2019 Periodic preventive med est patient 18-39 yrs Lola Kirby Work Phone: [employer] Comment on above: Encounter for gyneco logical examination without abnormal finding (Primary Dx); Encounter for surveillance of contraceptive pills Start: 11-19-2018 End: 11-19-2018 Patient encounter procedure Other Other [facility] Start: 04-25-2018 Patient encounter EMILIANO [facility] Start: 02-19-2018 Patient encounter EMILIANO [facility] Start: 02-13-2018 Patient encounter EMILIANO [facility] Start: 02-15-2017 End: 02-16-2017 Ambulatory [facility] Procedures Date Procedure Procedure Detail Performing Clinician Start: 08-27-2024 Urnls dip stick/tabl et rgnt non-auto w/o micrscp Eva Celso DO Work Phone: Start: 08-23-2024 US OB GROWTH Jeanna KONG Work Phone: Start: 08-20-2024 Urnls dip stick/tabl et rgnt [...] 03-17-2021 PAP IG, RFX HPV ASCU Sh bensteffen Divya Kirby SAND POLISHER-VARIETY PERFORMER Work Phone: Start: 02-17-2021 Echo tthrc r-t [...] Detail Author Start: 04-19-2027 Tetanus vaccination TETANUS [facility] Start: 10-12-2024 End: 10-12-2024 ambulatory 10/12/2024 9:30 AM EDT Visit [facility] [address] [place] [phone] Jeanna Estes PA [address] [place] [address] [facility] Start: 08-27-2024 End: 08-27-2024 Patient encounter procedure [facility] Comment on above: Arrived Start: 08-20-2024 End: 08-20-2025 US for US OB SCAN FOR GROWTH Imaging Routine size inconsistent with dates Expected: 08/20/2024 (Approximate), Expires: 08/20/2025 [facility] Healthcare Work Phone: Comment on above: Expected: 08/20/2024 (Approximate), Expi res: 08/20/2025 Start: 08-20-2024 End: 08-20-2024 Patient encounter procedure 08/20/2024 9:50 AM EST Routine [facility] [address] [place] [phone] Jeanna Estes PA [address] [place] [address] [facility] Start: 08-12-2024 End: 08-12-2024 Patient encounter procedure [facility] Comment on above: Arrived Start: 08-06-2024 End: 08-06-2024 Patient encounter procedure 08/06/2024 3:50 PM EST Routine [facility] [address] [place] [phone] Jeanna Estes, PA [address] [place] [address] [place] [address] [facility] Start: 08-06-2024 End: 08-06-2025 CULTURE, GROUP B STREP WITH SUSCEPTIBLITY CULTURE, GROUP B STREP WITH SUSCEPTIBLITY Lab Routine 35 weeks gestation of Third trimester Expected: 08/06/2024, Expires: 08/06/2025 [facility] Work Phone: Comment on above: Expected: 08/06/2024, Expires: Start: 07-16-2024 End: 07-16-2024 Patient encounter procedure 07/16/2024 11:00 AM EST Routine [facility] [address] [place] [phone] Jeanna Estes PA [address] [place] [address] [place] [address] Arrived [facility] Comment on above: [...] Expected: 05/07/2024 (Approximate), Expires: 05/07/2025 [facility] Comment on above: Expected: 05/07/2024 (Approximate), Expi res: 05/07/2025 Start: 05-07-2024 End: 05-07-2024 Patient encounter procedure 05/07/2024 10:30 AM EDT Routine [facility] [address] [place] [phone] Jenana Estes PA [address] [place] [address] [facility] Start: 04-23-2024 End: 04-23-2024 Professional / ancillary services management 04/23/2024 8:00 AM EDT Ancillary Procedure [facility] [address] [place] [address] [facility] Start: 04-09-2024 End: 05-09-2024 [...] AM EDT Routine [facility] [address] [place] [phone] Eva Houston DO [address] [place] [address] Arrived [facility] Comment on above: Arrived Start: 04-01-2024 End: 04-01-2024 Patient encounter procedure 04/01/2024 8:50 AM EDT Office Visit [facility] [employer] [address] [place] [phone] Noni Patel, SAND POLISHER-VARIETY PERFORMER [address] [place] [phone] [facility] [employer] Start: 03-27-2024 Screening for malignant neoplasm of cervix CERVICAL CANCER SCREENING DISCUSSION [facility] Start: 03-29-2023 Influenza vaccination INFLUENZA VACCINE (#1) [facility] stem Start: 03-21-2023 End: 03-21-2023 Patient encounter procedure 03/21/2023 Office Visit [employer] Lola Kirby Divya, SAND POLISHER-VARIETY PERFORMER [id number] [place] [address] [facility] [employer] Start: 03-19-2023 Screening for malignant neoplasm of cervix CERVICAL CANCER SCREENING DISCUSSION [facility] Start: 03-29-2022 Influenza vaccination INFLUENZA VACCINE (#1) [facility] [place] Start: 03-23-2022 End: 03-23-2022 Patient encounter procedure 03/23/2022 Office Visit [employer] Kofi Lola L, SAND POLISHER-VARIETY PERFORMER [id number] [place] [address] [facility] [employer] Start: 03-17-2022 Screening for malignant neoplasm of cervix CERVICAL CANCER SCREENING DISCUSSION [facility] Start: 03-29-2021 Influenza vaccination [facility] Start: 03-17-2021 End: 03-17-2021 Patient encounter procedure 03/17/2021 Office Visit TE[employer] Lola Kirby, SAND POLISHER-VARIETY PERFORMER [id number] [place] [address] [facility] [employer] Start: 03-17-2021 End: 03-17-2021 Office Visit 03/17/2021 Office Visit TE[employer] KofiLola, SAND POLISHER-VARIETY PERFORMER [id number] [place] [address] [facility] [employer] Start: 03-15-2021 Screening for malignant neoplasm of cervix CERVICAL CANCER SCREENING DISCUSSION [facility] Start: 02-28-2021 End: 02-28-2021 Patient encounter procedure 02/28/2021 Office Visit Family Medicine Gerardo Doan MD [address] [place] [phone] [facility] Start: 02-01-2021 End: 02-01-2022 Complete blood count with white cell differential, automated CBC, EDIF, PLATELET Lab Routine Leukocytosis, unspecified type Expected: 02/01/2021, Expires: 02/01/2022 [facility] Comment on above: Expected: 02/01/2021, Expires: 2 Start: 02-01-2021 End: 02-01-2022 Exercise stress echocardiography ECHOCARDIOGRAM TREADMILL STRESS TEST Stress Echocardiography Routine Murmur History of COVID-19 Abnormal EKG Expected: 02/01/2021, Expires: 02/01/2022 [facility] Comment on above: Expected: 02/01/2021, Expires: 2 Start: 02-01-2021 End: 02-01-2021 Patient encounter procedure 02/01/2021 Office Visit Family Medicine Gerardo Doan MD [address] [place] [phone] [facility] Start: 01-17-2021 End: 01-17-2022 Standard ECG ECG ECG Routine Lightheadedness Expected: 01/17/2021, Expires: 01/17/2022 [facility] Comment on above: Expected: 01/17/2021, Expires: 2 Start: 06-15-2020 End: 03-15-2021 [facility] PROFESSOR, LIQUID BASED [facility] CYTOLOGY-FOREST BIOMETRICS PROFESSOR, LIQUID BASED Cytology Routine Encounter for gynecological examination without abnormal finding Expected: 06/15/2020, Expires: 03/15/2021 [facility] Comment on above: Expected: 06/15/2020, Expires: 1 Start: 03-29-2020 Influenza vaccination INFLUENZA VACCINE (#1) [facility] Start: 03-11-2020 Screening for malignant neoplasm of cervix CERVICAL CANCER SCREENING DISCUSSION [facility] Start: 03-29-2019 Influenza vaccination [facility] Start: 03-11-2019 End: 03-11-2020 [facility] [employer] PROFESSOR, LIQUID BASED [facility] PROFESSOR, LIQUID BASED Cytology Routine Encounter for gynecological examination without abnormal finding Expected: 03/11/2019, Expires: 03/11/2020 [facility] Comment on above: Expected: 03/11/2019, Expires: 0 Start: 02-20-2019 End: 02-20-2019 Office Visit 02/20/2019 Office Visit TE[employer]ER [employer] Fox Kirbygama Stokes, SAND POLISHER-[facility] [id number] [place] [address] [phone] [facility] TEACHER [employer]OURCE Start: 02-18-2019 Screening for malignant neoplasm of cervix PAP SMEAR DISCUSSION [facility] Start: 02-15-2018 Screening for malignant neoplasm of cervix PAP SMEAR DISCUSSION [facility] Start: 01-26-2016 Tetanus vaccination TETANUS [facility] Start: 2013 Third diphtheria, tetanus and acellular pertussis (DTaP) vaccination TDAP (ADULT) [facility] Start: 2010 Screening for Chlamydia trachomatis CHLAMYDIA SCREEN [facility] Start: 2009 HIV screening HIV SCREENING DISCUSSION [facility] stem Start: 11-09-2007 HIV screening HIV SCREENING DISCUSSION [facility] Start: 2006 COVID-19 VACCINE (1) COVID-19 VACCINE (1) [facility] Sy[facility] m Start: 05-10-1995 COVID-19 VACCINE (#1) COVID-19 VACCINE (#1) [facility] tem Start: 1994 GONORRHEA SCREEN GONORRHEA SCREEN [facility] Start: 1994 Hepatitis C antibody, confirmatory test HEPATITIS C VIRUS SCREENING [facility] Start: 1994 Hepatitis C screening HEPATITIS C VIRUS SCREENING [facility] CBC panel - Blood by Automated count CBC Lab Routine Anemia during in third trimester Ordered: 06/18/2024 [facility] Healthcare Work Phone: Comment on above: Ordered: 06/18/2024 CHLAMYDIA TRACHOMATI S (GENITO/STI) CHLAMYDIA TRACHOMATIS (GENITO/STI) Lab Routine Exposure to STD Ordered: 04/09/2024 [facility] Comment on above: Ordered: 04/09/2024 Cytology Cervical or vaginal smear or scraping study Pap Smear Pathology and Cytology Routine Well woman exam with routine gynecological exam Ordered: 04/09/2024 [facility] Comment on above: Ordered: 04/09/2024 Ferritin [Mass/volum e] in Serum or Plasma Ferritin Lab Routine Anemia during in third trimester Ordered: 07/02/2024 [facility] Healthcare Work Phone: Comment on above: Ordered: 07/02/2024 Neisseria gonorrhoea e DNA [Presence] in Unspecified specimen by LINO with probe detection Neisseria gonorrhea DNA probe, direct Lab Routine Exposure to STD Ordered: 04/09/2024 [facility] Comment on above: Ordered: 04/09/2024 PAP IG, RFX HPV ASCU PAP IG, RFX HPV ASCU LAB SEND OUTS [facility], [facility] PAP IG, RFX HPV ASCU Cytology Routine 03/17/2021 1:55 PM [facility] Work Phone: PAP IG, RFX HPV ASCU PAP IG, RFX HPV ASCU Cytology Routine 03/19/2022 10:06 AM [facility] PAP IG, RFX HPV ASCU PAP IG, RFX HPV ASCU Cytology Routine 03/27/2023 9:25 AM [facility] SURESWAB(R) ADVANCED VAGINITIS PLUS, TMA SURESWAB(R) ADVANCED VAGINITIS PLUS, TMA Pathology and Cytology Routine Exposure to STD Ordered: 04/09/2024 [facility] Work Phone: Comment on above: Ordered: 04/09/2024 Immunizations Immunization Date Immunization Notes Care Provider Pedro rooney 05-20-2019 influenza virus vacc ine, unspecified formulation Lola Kirby [facility] 05-09-2016 influenza virus vacc ine, unspecified formulation Other [facility] 04-24-2012 meningococcal polysaccharide (groups A, C, Y and W-135) diphtheria toxoid conjugate vaccine (MCV4P) Other [facility] 09-02-2007 human papilloma viru s vaccine, bivalent Other [facility] 05-02-2007 human papilloma viru s vaccine, bivalent Other Other [facility] 02-11-2007 human papilloma viru s vaccine, bivalent Other [facility] 02-11-2007 meningococcal polysaccharide (groups A, C, Y and W-135) diphtheria toxoid conjugate vaccine (MCV4P) Other [facility] 02-11-2007 varicella virus vaccine Other [facility] 01-25-2006 tetanus toxoid, redu cate diphtheria toxoid, and acellular pertussis vaccine, adsorbed Other [facility] 03-03-2001 varicella virus vaccine Other Other [facility] 11-14-1999 measles, mumps and r ubella virus vaccine Other Other [facility] 06-15-1996 diphtheria, tetanus toxoids and acellular pertussis vaccine Other Other [facility] 03-10-1996 haemophilus influenz ae type b vaccine, conjugate unspecified formulation Other Other [facility] 03-10-1996 measles, mumps and r ubella virus vaccine Other Other [facility] 08-13-1995 hepatitis B vaccine, pediatric or pediatric/adolescent dosage Other Other [facility] 04-11-1995 poliovirus vaccine, inactivated Other Other [facility] 02-01-1995 hepatitis B vaccine, pediatric or pediatric/adolescent dosage Other Other [facility] 1994 hepatitis B vaccine, pediatric or pediatric/adolescent dosage Other Other [facility] Payers Date Payer Category Payer Private Health Insurance [employer] [id number] 2021 Unknown [id number] 2021 Unknown [id number] 2016 Unknown 2014 Unknown [id number] 1994 Unknown [id number] [id number]. 983 1994 Unknown [id number] [id number]. 983 1994 Unknown [id number] [id number]. 983 1994 Unknown [id number] 2.16.840.1.985665.3.579.2. 1258 1994 Unknown [id number] 2.16.840.1.997634.3.579.2. 1258 1994 Unknown [id number] 2.16.840.1.307366.3.579.2. 1258 1994 Unknown [id number] 2.16.840.1.218850.3.579.2. 1258 1994 Unknown [id number] 2.16.840.1.513056.3.579.2. 1258 1994 Unknown [id number] 2.16.840.1.936582.3.579.2. 1258 1994 Unknown [id number] 2.16.840.1.573779.3.579.2. 1258 1994 Unknown [id number] 2.16.840.1.742372.3.579.2. 1258 1994 Unknown [id number] 2.16.840.1.679884.3.579.2. 1258 1994 Unknown [id number] 2.16.840.1.882861.3.579.2. 1258 1994 Unknown [id number] 2.16.840.1.109631.3.579.2. 1258 1994 Unknown [id number] 2.16.840.1.492797.3.579.2. 1258 1994 Unknown [id number] [id number]. 9 Social History Date Type Detail Facility Start: 03-15-2020 End: 03-27-2023 Tobacco smoking status NHIS Never smoker [facility] Start: 03-15-2020 End: 03-27-2023 Tobacco use and exposure Never used [facility] Start: 03-15-2020 End: 03-27-2023 Alcohol intake Current drinker of alcohol (finding) [facility] Start: 02-03-2020 End: 03-15-2020 History SDOH Alcohol Frequency 2 [facility] Start: 02-18-2018 Alcohol Comment consumes rarely [facility] Start: 1994 Sex Assigned At Not on file [facility] Start: 03-11-2019 End: 03-27-2023 Alcohol intake Yes [facility] Exposure to SARS-CoV -2 (event) Not sure [facility] Start: 03-15-2020 End: 03-27-2023 History of Social function [facility] How often to you hav e a drink containing alcohol? Monthly or less [facility] Average Number of Drinks Not on file [facility] Start: 01-03-2024 Gender identity Identifies as female gender (finding) [facility] Tobacco smoking stat [facility] Tobacco smoking consumption unknown [facility] Start: 12-13-2023 [facility] Start: 1994 Sex assigned at Female [facility] Medical Equipment Procedure Code Equipment Code Equipment Origin al Text Equipment Identifier Dates 1 strip by In Vi tro route Daily Use in the morning prior to breakfast, 1 hour after each meal for a total of 4times daily. [id number] Start: 06-18-2024 End: 07-18-2024 1 each by In Vit ro route Daily Use to check FSBS four times daily [id number] Start: 06-18-2024 End: 07-18-2024 Goals Date Patient Goal Desired Activity /State Personal health goal Comment on above: 1. The patient will have orthotics that allow her to return to all normal activities with minimal to no restriction d/t right foot and knee pain. Clinical Notes 01-17-2021 to 08-27-2024 Kelley Vogt LPN - 08/27/2024 8:30 AM DILAN Desai - 08/20/2024 9:50 AM Isabella Valentino LPN - 08/12/2024 2:20 PM DILAN Desai - 08/06/2024 3:50 PM DILAN Desai - 07/02/2024 9:30 AM EST Note Date & Type Note Facility 08-27-2024 History of Presen t illness Narrative Reason for Appointment: Patient ID: Niall Haile is a 28 y.o. female who presents for Routine Visit Patient presents today for Return OB appointment. MEDICATIONS Current Outpatient Medications Medication Instructions Alcohol Swabs (Alcohol Prep Pad) 70 % pads 1 Pad, Topical, Daily, Use four times daily to check FSBS. bisacodyl (DULCOLAX) 10 mg, Rectal, Once as needed Blood Glucose Monitoring Suppl ([employer]ix Glucometer) w/Device kit 1 kit, Does not [...] nursing note reviewed. Exam conducted with a compressor mechanic bus present. Vitals: There is no height or weight on file to calculate BMI. BP: 122/74 Patient's last menstrual period was 11/29/2023. ASSESSMENT & PLAN ICD-10-CM 1. Third trimester Z34.93 POCT urinalysis dipstick manually resulted 2. 38 weeks gestation of Z3A.38 Patient presents today for a routine obstetrics appointment. Patient is currently 38w6d with a Estimated Date of Delivery: 09/04/24. Vaginal check performed and patient is currently 1-2cm dilated. Patient would like to have IOL on 08/30/24. Patient signed consent and Dr. Houston called [facility] and spoke with Elina who put patient on the books for IOL. Paperwork will be sent to [facility] along with Episode prior to end of day today. Patient to return to clinic for 6 week follow up post . Documented by Kelley Vogt LPN on behalf of: Eva Houston DO documented in this encounter [facility] 08-20-2024 History of Presen t illness Narrative Reason for Appointment: Patient ID: Niall Haile is a 28 y.o. female who presents [...] of: DILAN Mcadams documented in this encounter [facility] 08-12-2024 History of Presen t illness Narrative Reason for Appointment: Patient ID: Niall Haile is a 28 y.o. female who presents for Routine Visit Patient presents today for Return OB appointment. MEDICATIONS Current Outpatient Medications Medication Instructions Alcohol Swabs (Alcohol Prep Pad) 70 % pads 1 Pad, Topical, Daily, Use four times daily to check FSBS. bisacodyl (DULCOLAX) 10 mg, Rectal, Once as needed Blood Glucose Monitoring Suppl (VideoClix Glucometer) w/Device kit 1 kit, Does not [...] nursing note reviewed. Exam conducted with a compressor mechanic bus present. Vitals: There is no height or [...] Eva Houston DO documented in this encounter [facility] 08-06-2024 History of Presen t illness Narrative Reason for Appointment: Patient ID: Niall Haile is a 28 y.o. female who presents [...] nursing note reviewed. Exam conducted with a compressor mechanic bus present. Vitals: There is no height or [...] urinalysis dipstick manually resulted 3. Anxiety, generalized (CMS/[facility]) F41.1 sertraline (Zoloft) 50 MG tablet Patient [...] of: DILAN Mcadams documented in this encounter [facility] 07-16-2024 History of Presen t illness Narrative Reason for Appointment: Patient ID: Niall Haile is a 28 y.o. female who presents [...] nursing note reviewed. Exam conducted with a compressor mechanic bus present. Vitals: There is no height or [...] would like to have infusions completed at [facility]. Orders Placed This Encounter Procedures POCT urinalysis dipstick manually resulted Follow Up: Patient is to return to office in 2 week for routine OB appointment. Documented by Bree Wood MA on behalf of: DILAN Mcadams documented in this encounter [place] [address]-05-2024 History of Presen t illness Narrative Reason for Appointment: Patient ID: Niall Haile is a 28 y.o. female who presents for Routine Visit Patient presents today for Return OB appointment. MEDICATIONS Current Outpatient Medications Medication Instructions Alcohol Swabs (Alcohol Prep Pad) 70 % pads 1 Pad, Topical, Daily, Use four times daily to check FSBS. bisacodyl (DULCOLAX) 10 mg, Rectal, Once as needed Blood Glucose Monitoring Suppl ([employer] Glucometer) w/Device kit 1 kit, Does not [...] drop, will send prior auth to [employer]. Stewart given ferritin orders today Orders Placed This Encounter Procedures Ferritin Transferrin POCT urinalysis dipstick manually resulted Follow Up: Patient is to return to office in 2 week for routine OB appointment. Documented by DILAN Mcadams on behalf of: DILAN Mcadams documented in this encounter [facility] 06-18-2024 History of Presen t illness Narrative Reason for Appointment: Patient ID: Niall Haile is a 28 y.o. female who presents [...] of: DILAN Mcadams documented in this encounter [facility] 06-04-2024 History of Presen t illness Narrative Reason for Appointment: Patient ID: Niall Haile is a 28 y.o. female who presents [...] nursing note reviewed. Exam conducted with a compressor mechanic bus present. Vitals: There is no height or [...] Eva Houston DO documented in this encounter [facility] 05-07-2024 History of Presen t illness Narrative Reason for Appointment: Patient ID: Niall Haile is a 28 y.o. female who presents [...] nursing note reviewed. Exam conducted with a compressor mechanic bus present. Vitals: There is no height or [...] of: DILAN Mcadams documented in this encounter [facility] 04-09-2024 History of Presen t illness Narrative Reason for Appointment: Patient ID: Niall Haile is a 28 y.o. female who presents [...] nursing note reviewed. Exam conducted with a compressor mechanic bus present. Vitals: There is no height or [...] Eva Houston DO documented in this encounter [facility] 03-27-2023 History of Presen t illness [...] for cervical cancer Pap collected - [facility] [employer] PROFESSOR, LIQUID BASED 3. Encounter for surveillance of contraceptive pills Doing well tri-cycling. No contraindicating dx. I will send in new script with refills to pharmacy of patient's choice. Patient advised to contact the office with any concerns. Patient voiced understanding of all instructions. Return in about 1 year (around 03/27/2024) for Annual with Noni lew. Thank you. . documented in this encounter [facility] 03-19-2022 History of Presen t illness [...] w/ HPV rfx ASCUS ordered. - [facility] [employer] PROFESSOR, LIQUID BASED 2. Initiation of oral contraception - norgestimate-ethinyl estradiol 0.25-35 MG-MCG tablet; Take 1 tablet by mouth daily. Dispense: 84 tablet; Refill: 3 Return in about 1 year (around 03/19/2023) for Annual wellness. documented in this encounter [facility] 03-17-2021 History of Presen t illness [...] Social Gatherings with Friends and Family: Attends Hinduism Services: Active Member of Clubs or Organizations: [...] w/ HPV rfx ASCUS ordered. - [facility] [employer] PROFESSOR, LIQUID BASED 2. Encounter for surveillance of contraceptive pills - levonorgestrel-ethinyl estradiol (Quasense) 0.15-0.03 MG tablet; Take one tablet by mouth daily. Dispense: 91 tablet; Refill: 3 Return in about 1 year (around 03/17/2022) for Annual wellness. documented in this encounter [facility] 02-01-2021 History of Presen t illness [...] another episode of fainting while shopping at [employer]. She has a hx of iron deficiency, she has not been taking iron regularly, so she restarted this for one week. She notes that she was feeling pretty good again. She felt that she was tired all of the time, had another episode while at [employer] Saturday01/15/21. She has a high resting heart [...] Social Gatherings with Friends and Family: Attends Hinduism Services: Active Member of Clubs or Organizations: [...] Assessment: Physical Exam documented in this encounter [facility] 01-17-2021 History of Presen t illness [...] another episode of fainting while shopping at [employer]. She has a hx of iron deficiency, she has not been taking iron regularly, so she restarted this for one week. She notes that she was feeling pretty good again. She felt that she was tired all of the time, had another episode while at [employer] Saturday01/15/21. She has a high resting heart [...] Social Gatherings with Friends and Family: Attends Hinduism Services: Active Member of Clubs or Organizations: [...] Assessment: Physical Exam documented in this encounter [facility] 01-17-2021 Miscellaneous Notes Addended by: MAKAYLA KILGORE on: 01/17/2021 03:15 PM Modules accepted: Orders documented in this encounter [facility] Evaluation note Diagnosis Lightheadedness- Primary Dizziness [...] blood loss (chronic) [facility] Diagnosis Lightheadedness Dizziness and giddiness [facility] Diagnosis Murmur- Primary Undiagnosed cardiac murmurs History of COVID-19 Abnormal EKG Nonspecific abnormal electrocardiogram (ECG) (EKG) Generalized anxiety disorder Fluid level behind tympanic membrane of both ears Leukocytosis, unspecified type [facility] Diagnosis Murmur Undiagnosed cardiac murmurs History of COVID-19 Abnormal EKG Nonspecific abnormal electrocardiogram (ECG) (EKG) [facility] Diagnosis Encounter for gynecological examination without abnormal finding- Primary Routine gynecological examination Encounter for surveillance of contraceptive pills Surveillance of previously prescribed contraceptive pill [facility] Diagnosis Encounter for gynecological examination without abnormal finding- Primary Routine gynecological examination Initiation of oral contraception [facility] Diagnosis Encounter for gynecological examination without abnormal finding- Primary Routine gynecological examination Screening for cervical cancer Screening for malignant neoplasm of the cervix Encounter for surveillance of contraceptive pills Surveillance of previously prescribed contraceptive pill [facility] Diagnosis 22 weeks gestation of Second trimester state, incidental Diabetes mellitus screening Screening for diabetes mellitus documented in this encounter [facility]* Diagnosis Second trimester state, incidental [...] glucose tolerance test documented in this encounter [facility]* Diagnosis Third trimester state, incidental 31 weeks gestation of Anemia during in third trimester documented in this encounter [facility]* Diagnosis Well woman exam with routine gynecological exam Routine gynecological examination Exposure to STD Second trimester state, incidental Need for maternal serum alpha-protein (MSAFP) screening Screening, , for anatomic survey Encounter for anatomic survey documented in this encounter [facility]* Diagnosis Third trimester state, incidental 32 weeks gestation of documented in this encounter [facility]* Diagnosis 35 weeks gestation of Third trimester state, incidental Anxiety, generalized (CMS/HCC) documented in this encounter [facility]* Diagnosis Third trimester state, incidental 36 weeks gestation of documented in [facility]* Diagnosis size inconsistent with dates- Primary Third trimester state, incidental 37 weeks gestation of documented in this encounter [facility]* Diagnosis Third trimester state, incidental 38 weeks gestation of documented in this encounter [facility] Summary Purpose Family History No Family History Records FoundNo Family History Records FoundNo Family History Records FoundNo Family History Records Found Advance Directives No Advanced Directives Records FoundNo Advanced Directives Records FoundNo Advanced Directives Records FoundNo Advanced Directives Records Found History of Present Illness * Lola Kirby, SAND POLISHER-VARIETY PERFORMER - 03/15/2020 9:30 AM EDT History of [...] file Gets together: Not on file Attends episcopal service: Not on file Active member of [...] w/ HPV rfx ASCUS ordered - [facility] [employer] PROFESSOR, LIQUID BASED; Future 2. Encounter for surveillance [...] Pt [facility] had more menses than should [...] file Gets together: Not on file Attends episcopal service: Not on file Active member of [...] w/ HPV rfx ASCUS ordered - [facility] PROFESSOR, LIQUID BASED; Future 2. Encounter for surveillance [...] Diagnoses Lightheadedness Procedures ECG Gerardo Doan MD [address] [place] [address] Status Reason Specialty Diagnoses / Procedures Referred By Contact Referred To Contact Auth Not Needed Cardiovascular Medicine Diagnoses [place] History of COVID-19 Abnormal EKG Procedures ECHOCARDIOGRAM TREADMILL STRESS TEST MA ECHO TTHRC R-T 2D W/WO M-MODE REST&STRS CONT ECG MA DOPPLER ECHO HEART,LIMITED,F/ U MA DOPPLER COLOR FLOW VELOCITY MAP Gerardo Doan MD [address] [place] [address] [facility] E[facility]ocardi[facility] [address] [place] [address] Status Reason Specialty Diagnoses / Procedures Referred By Contact Referred To Contact Closed Cardiovascular Medicine Diagnoses [place] History of COVID-19 Abnormal EKG Procedures ECHOCARDIOGRAM TREADMILL STRESS TEST MA ECHO TTHRC R-T 2D W/WO M-MODE REST&STRS CONT ECG MA DOPPLER ECHO HEART,LIMITED,F/U MA DOPPLER COLOR FLOW VELOCITY MAP Gerardo Doan MD [address] [place] [address] [facility] E[facility] [address] [place] [address] Additional Source Comments INFORMATION SOURCE (unrecogn ized section and content) DATE CREATED AUTHOR 01/22/2018 [facility] DATE CREATED AUTHOR AUTHOR'S ORGANIZ ATION 05/27/2018 [facility] DATE CREATED AUTHOR AUTHOR'S ORGANIZ ATION 07/17/2024 [facility] DATE CREATED AUTHOR AUTHOR'S ORGANIZ ATION 08/29/2024 [facility] EPIC Reason for Visit (unrecogniz ed section and content) Reason Comments Annual Exam Pap 03/11/19 wnl Reason Comments Annual Exam Pap 02/18/18 wnl Want s to discuss ocp Reason Comments Rapid Heart Rate Status Reason Specialty Diagnoses / Procedures Referred By Contact Referred To Contact New Request Diagnoses Lightheadedness Procedures ECG Gerardo Doan MD [address] [place] [facility] [address] Reason Comments Dizziness 2 week f/u Status Reason Specialty Diagnoses / Procedures Referred By Contact Referred To Contact Closed Cardiovascular Medicine Diagnoses [place] History of COVID-19 Abnormal EKG Procedures ECHOCARDIOGRAM TREADMILL STRESS TEST MA ECHO TTHRC R-T 2D W/WO M-MODE REST&STRS CONT ECG MA DOPPLER ECHO HEART,LIMITED,F/U MA DOPPLER COLOR FLOW VELOCITY MAP Gerardo Doan MD [address] [place] [facility] [address] [facility] E[facility]ocardi[facility] [address] [place] [address] Reason Comments Annual Exam Pap 03/15/20 NILM [...] Care Teams (unrecognized sec tion and content) Parachute Line Tier Relationship Specialty Start Date End Date Gerardo Doan MD PCP - General Family Medicine 12/21/16 Parachute Line Tier Relationship Specialty Start Date End Date Gerardo Doan MD PCP - General Family Medicine 12/21/16 Parachute Line Tier Relationship Specialty Start Date End Date Gerardo Doan MD PCP - [facility] 12/21/16 FOR RECORDS PERTAINING TO PATIENTS WHO [...] BE BASED ON THE PRIMARY CLINICAL RECORDS. [employer] provides no warranty or guarantee of the accuracy or completeness of information in this document.
[2024-08-30] MEDS: 0.9 % SODIUM CHLORIDE 1,000 ML 125 ML IV ×2 (05:20→13:25)
[2024-08-30] MEDS: OXYTOCIN/0.9 % SODIUM CHLORIDE 10 UNITS/500 ML PLAST..BAG 6 UNIT IV (05:42)
[2024-08-30 06:52] LABS: Hematocrit 36.2 % (36.0-48.0); Hemoglobin 12.1 g/dL (12.0-16.0); Mean Corpuscular HGB Conc 33.4 g/dL (29.9-35.2); Mean Corpuscular Hemoglobin 31.3 pg (26.7-34.0); Mean Corpuscular Volume 93.5 fL (81.0-99.0); Mean Platelet Volume 10.8 fL (9.5-13.5); Platelet Count 318 10^3/uL (150-450); Red Blood Count 3.87 10^6/uL (4.20-5.40); Red Cell Distribution Width 15.5 % (11.0-15.0); White Blood Count 15.4 10^3/uL (4.0-11.0)
[2024-08-30 07:11] LABS: Amphetamine Screen Urine NEGATIVE (NEGATIVE); Barbiturates Screen Urine NEGATIVE (NEGATIVE); Benzodiazepines Screen Urine NEGATIVE (NEGATIVE); Buprenorphine Screen Urine NEGATIVE (NEGATIVE); Cannabinoid Screen Urine NEGATIVE (NEGATIVE); Cocaine Screen Urine NEGATIVE (NEGATIVE); Methadone Screen Urine NEGATIVE (NEGATIVE); Methamphetamines Screen Urine NEGATIVE (NEGATIVE); Opiate Screen Urine NEGATIVE (NEGATIVE); Oxycodone Screen Urine NEGATIVE (NEGATIVE); Phencyclidine Screen Urine NEGATIVE (NEGATIVE); Tricyclic Antidepressant Urine NEGATIVE (NEGATIVE)
[2024-08-30] MEDS: NALBUPHINE HCL 10 MG/ML AMPULE IV (11:34)
[2024-08-30] MEDS: 0.9 % SODIUM CHLORIDE 1,000 ML 1000 ML IV (12:26)
[2024-08-30] MEDS: ROPIVACAINE HCL/PF 400 MG/200 ML PREMIX 6 MG EPIDURAL (13:02)
[2024-08-30] MEDS: ROPIVACAINE HCL 0.2% PF 40 MG/20 ML VIAL 20 MG EPIDURAL (13:48)
[2024-08-30] MEDS: 0.9 % SODIUM CHLORIDE 1,000 ML 250 ML IV (20:50)
[2024-08-30] MEDS: CEFAZOLIN SODIUM/DEXTROSE,ISO 2 GM/50 ML PIGGYBACK IV (20:55)
[2024-08-30] MEDS: METOCLOPRAMIDE HCL 10 MG/2 ML VIAL IVP (20:55)
[2024-08-30] MEDS: FAMOTIDINE/PF 20 MG/2 ML VIAL IV (20:55)
[2024-08-30] MEDS: CITRIC ACID/SODIUM CITRATE 30 ML SOLUTION ORACIT SHOHL'S SOLN PO (20:55)
[2024-08-30] MEDS: OXYTOCIN/0.9 % SODIUM CHLORIDE 20 UNITS/1,000 ML PLAST..BAG 125 UNIT IV (21:45)
--- NOTE | 2024-08-30 22:03 | P.ON_ITS ---
Brief Operative Note Date of procedure: 08/30/24 Pre-op diagnosis general: iup at 39wks, cpd, failure to descend Post-op diagnosis: same as pre-op Procedure: NAME OF PROCEDURE: [ section ] PROCEDURE: Patient was taken back to the Operating Room where she was given a spinal anesthesia with Duramorph without difficulty. She was prepped and draped in the normal sterile fashion. A Pfannenstiel skin incision was then made 2 cm above the symphysis pubis and carried down to underlying rectus fascia using a Bovie. The fascia was incised in the midline and extended laterally using Nolasco scissors. Two Brooks clamps were placed on the superior aspect of the fascia and dissected off the underlying rectus muscles. The same was performed on the inferior aspect as well. The muscles were then in the midline. Peritoneum was identified and entered bluntly. The peritoneum was then extended superiorly and inferiorly with good visualization of the bladder. The bladder blade was inserted. A low transverse incision was made on the patient's uterus and extended laterally digitally. The was then delivered atraumatically after the bladder blade was removed in the cephalic position. The cord was clamped and cut. Cord blood was obtained. The infant was handed off to awaiting team. The patient's placenta was spontaneously delivered. The uterus was then exteriorized. The uterus was cleared of all clots and debris. The bladder blade was reinserted. The patient's uterine incision was closed using #0 Vicryl in a running lock fashion. Excellent hemostasis was assured. The uterus was then returned to the patient's abdomen. The patient's abdomen was copiously irrigated using warm saline. Peritoneal gutters were cleared of all clots and debris. Again excellent hemostasis was assured. The patient's peritoneum was closed using 3-0 Vicryl in a running fashion. The patient's fascia was closed using #0 Vicryl in a running fashion. The patient's skin was closed using 4-0 Vicryl subcuticularly. The patient tolerated the procedure well. Sponge, lap, and needle counts were correct x2. The patient was taken to the Recovery Room in stable condition. Anesthesia: epidural Surgeon: Daniel Houston Area Plant Manager: Monserrat Sanchez Estimated blood loss (mL): 575 Pathology: none sent Condition: stable Disposition: PACU Urinary Catheter Management Urinary Catheter Management Urethral: Cath placed during this visit: yes, but has since been removed by the nurse Insertion date: 08/30/24 Insertion time: 14:35 Removal date: 08/30/24 Removal time: 18:50
--- NOTE | 2024-08-30 22:04 | P.OBPRC_ITS ---
Procedure Pre-op/Post-op diagnoses: Pre-Op/Post-Op Diagnoses Operation Date: 08/30/24 21:05 <No data on this case meets the specified criteria> Procedure: Procedures Operation Date: 08/30/24 21:05 Actual Procedure Side Surgeon p Not Applicable Daniel Houston DO Director Of Supply Chain: Monserrat Sanchez Estimated blood loss (mL): 575 Disposition: PACU Anesthesia type: Epidural
[2024-08-30] MEDS: BUPIVACAINE LIPOSOME/PF 266 MG/20 ML VIAL INJ (22:20)
[2024-08-30] MEDS: LACTATED RINGER'S SOLUTION 1,000 ML 50 ML IV (22:26)
[2024-08-30] MEDS: KETOROLAC TROMETHAMINE 30 MG/ML VIAL IVP (23:39)
[2024-08-31] VITALS (22 sets, daily range): BP systolic 119–138; BP diastolic 55–80; PULSE 89–114; TEMP 36.9–37.2; O2SAT 95–100
[2024-08-31] MEDS: ACETAMINOPHEN 500 MG TABLET 1000 MG PO ×3 (00:50→17:49)
--- NOTE | 2024-08-31 05:34 | PM.OBPN ---
OB - PN: Subj Subjective Patient comments: no complaints and pain well controlled [place] status: doing well Exam Constitutional Vital Signs, click to edit/add: Last Vital Signs Temp 97.4 F L 08/30/24 23:00 Pulse 97 H 08/31/24 01:00 Resp 23 H 08/31/24 01:00 BP 122/66 08/31/24 01:00 Pulse Ox 97 08/31/24 01:00 O2 Del Method Room Air 08/31/24 01:00 Documenting provider has reviewed patient's vital signs: yes Common normals: no apparent distress Respiratory Common normals: normal respiratory effort Cardio Common normals: regular rate and regular rhythm GI Common normals: Normal to inspection, nondistended, normoactive bowel sounds present Extremity Common normals: no clubbing, cyanosis or edema and no calf tenderness Results Labs Labs: Short CBC 08/30/24 Range/Units 05:15 WBC 15.4 H (4.0-11.0) 10^3/uL Hgb 12.1 (12.0-16.0) g/dL Hct 36.2 (36.0-48.0) % Plt Count 318 (150-450) 10^3/uL Urinary Catheter Management Urinary Catheter Management Urethral: Cath placed during this visit: yes, but has since been removed by the nurse Insertion date: 08/30/24 Insertion time: 14:35 Removal date: 08/30/24 Removal time: 18:50 OB - PN: A/P Plan - day: 1 Plan: routine postop care Time Spent with Patient Time: Total time spent is greater than 50% in coordination of care (as documented) at patient's floor/unit and/or counseling patient: Total time spent with greater than 50% in coordination of care (as documented) at patient's floor/unit and/or counseling patient: less than 15 minutes
[2024-08-31 06:02] LABS: Basophils Percent Auto 0.2 % (0.2-2.0); Eosinophils Percent Auto 0.2 % (0.9-7.0); Hematocrit 26.5 % (36.0-48.0); Hemoglobin 8.8 g/dL (12.0-16.0); Immature Granulocytes Abs Auto 0.13 10^3/uL (0.00-0.03); Immature Granulocytes Pct Auto 0.7 % (0.0-0.5); Lymphocytes Percent Auto 10.2 % (20.5-60.0); Mean Corpuscular HGB Conc 33.2 g/dL (29.9-35.2); Mean Corpuscular Hemoglobin 31.5 pg (26.7-34.0); Mean Platelet Volume 9.9 fL (9.5-13.5); Monocytes Absolute Auto 1.3 10^3/uL (0.3-0.8); Monocytes Percent Auto 6.6 % (1.7-12.0); Neutrophils Absolute Auto 15.8 10^3/uL (1.4-6.5); Neutrophils Percent Auto 82.1 % (43.0-75.0); Platelet Count 244 10^3/uL (150-450); Red Blood Count 2.79 10^6/uL (4.20-5.40); Red Cell Distribution Width 15.7 % (11.0-15.0); White Blood Count 19.2 10^3/uL (4.0-11.0)
[2024-08-31] MEDS: 0.9 % SODIUM CHLORIDE 250 ML 10 ML IV (06:10)
[2024-08-31] MEDS: KETOROLAC TROMETHAMINE 30 MG/ML VIAL IVP ×3 (06:10→20:28)
[2024-08-31] MEDS: CEFAZOLIN SODIUM/DEXTROSE,ISO 2 GM/50 ML PIGGYBACK IV (06:16)
[2024-08-31] MEDS: BENZOCAINE/MENTHOL 85 GRAM SPRAY BOTTLE 1 APPLIC TOPICAL (06:47)
[2024-08-31] MEDS: GLYCERIN/WITCH HAZEL PADS 1 PAD TOPICAL (06:47)
[2024-08-31] MEDS: DOCUSATE SODIUM 100 MG CAPSULE PO ×2 (09:25→20:27)
[2024-08-31] MEDS: IRON POLYSACCHARIDE COMPLEX 180 MG CAPSULE PO (09:25)
[2024-08-31] MEDS: ENOXAPARIN SODIUM 40 MG/0.4 ML SYRINGE SUBQ (09:25)
[2024-08-31] MEDS: SERTRALINE HCL 50 MG TABLET PO (09:25)
[2024-08-31] MEDS: SIMETHICONE 80 MG TAB.CHEW PO (20:36)
[2024-09-01] MEDS: ACETAMINOPHEN 500 MG TABLET 1000 MG PO ×4 (00:03→21:07)
--- NOTE | 2024-09-01 00:14 | PC.NURSE ---
Addendum entered by Makayla Jon 09/01/24 04:27: shower and dressing removal was completed at 2210 08/31/2024 Original Note: Pt up to shower with RN in to assist. Lower abdominal dressing is removed. Moderate amount old bloody drainage is noted. Incision is well approximated with steri strips intact. No active drainage is present. Pt is instructed on incisional care. Seat is lowered for pt to sit as she needs. helps pt finish with her shower. Red cord is placed in reach if assistance is needed. Pt verbalizes understanding
[2024-09-01] MEDS: KETOROLAC TROMETHAMINE 30 MG/ML VIAL IVP (04:14)
--- NOTE | 2024-09-01 07:23 | PC.NURSE ---
Report received from Kieran Jon RN
[2024-09-01 07:52] VITALS: BP 124/72; PULSE 90; TEMP 36.9
[2024-09-01] MEDS: IRON POLYSACCHARIDE COMPLEX 180 MG CAPSULE PO (08:18)
[2024-09-01] MEDS: SERTRALINE HCL 50 MG TABLET PO (08:19)
[2024-09-01] MEDS: DOCUSATE SODIUM 100 MG CAPSULE PO ×2 (08:19→21:07)
[2024-09-01] MEDS: SIMETHICONE 80 MG TAB.CHEW PO ×2 (08:19→14:47)
--- NOTE | 2024-09-01 08:27 | PM.OBPN ---
OB - PN: Subj Subjective Patient comments: no complaints [place] status: doing well [place] feeding status: exclusively Exam Constitutional Vital Signs, click to edit/add: Last Vital Signs Temp 98.4 F 09/01/24 07:52 Pulse 90 09/01/24 07:52 Resp 18 09/01/24 07:52 BP 124/72 09/01/24 07:52 Pulse Ox 97 08/31/24 23:44 O2 Del Method Room Air 09/01/24 07:52 Documenting provider has reviewed patient's vital signs: yes Common normals: no apparent distress and oriented x3 Exam limitations: altered mental status General appearance: cooperative Orientation/consciousness: Yes awake, Yes oriented to person, Yes oriented to place and Yes oriented to time HENMT Common normals: normocephalic Face and sinus: normal facial exam Eye Common normals: EOMs intact bilaterally General eye: normal appearance of both eyes Neck & C-Spine Common normals: full ROM Lymph Lymphatic: no lymphadenopathy noted Chest Common normals: inspection of chest normal Respiratory Common normals: normal respiratory effort Effort & inspection: able to speak in complete sentences Auscultation: clear to auscultation bilaterally Cardio Common normals: regular rate and regular rhythm Rate: regular rate Rhythm: regular rhythm GI Common normals: Normal to inspection, nondistended, normoactive bowel sounds present Auscultation: normoactive bowel sounds Palpation: soft Common normals: no CVA tenderness Back & Pelvis Common normals: no CVA tenderness Extremity Common normals: normal to inspection General: normal exam except as noted Neuro Common normals: oriented x3 Sensorium/orientation: awake, alert, oriented to person, oriented to place and oriented to time Psych Common normals: mental status grossly normal Attitude: calm Speech: normal speech Thought process: normal thought process Urinary Catheter Management Urinary Catheter Management Urethral: Cath placed during this visit: yes, but has since been removed by the nurse Insertion date: 08/30/24 Insertion time: 14:35 Removal date: 08/31/24 Removal time: 08:35 OB - PN: A/P Plan - Plan: routine postop care Time Spent with Patient Time: Total time spent is greater than 50% in coordination of care (as documented) at patient's floor/unit and/or counseling patient: Total time spent with greater than 50% in coordination of care (as documented) at patient's floor/unit and/or counseling patient: less than 15 minutes
[2024-09-01] MEDS: ENOXAPARIN SODIUM 40 MG/0.4 ML SYRINGE SUBQ (09:10)
[2024-09-01] MEDS: IBUPROFEN 400 MG TABLET 800 MG PO ×2 (12:03→19:51)
[2024-09-01 13:54] VITALS: BP 93/44; PULSE 95
[2024-09-01 13:56] VITALS: BP 96/49; PULSE 97
[2024-09-01 14:10] VITALS: BP 124/72; PULSE 95; TEMP 36.5; O2SAT 96
--- NOTE | 2024-09-01 14:23 | RESP.RT ---
Done per nursing
[2024-09-01 14:44] VITALS: BP 123/67; PULSE 99
[2024-09-01 17:22] VITALS: BP 121/67; PULSE 94; TEMP 36.7
[2024-09-02 00:23] VITALS: BP 130/75; PULSE 87; TEMP 36.8
[2024-09-02] MEDS: ACETAMINOPHEN 500 MG TABLET 1000 MG PO ×2 (03:11→09:46)
[2024-09-02] MEDS: IBUPROFEN 400 MG TABLET 800 MG PO ×2 (04:42→13:20)
[2024-09-02] MEDS: SERTRALINE HCL 50 MG TABLET PO (09:47)
[2024-09-02] MEDS: DOCUSATE SODIUM 100 MG CAPSULE PO (09:47)
[2024-09-02] MEDS: IRON POLYSACCHARIDE COMPLEX 180 MG CAPSULE PO (09:48)
[2024-09-02] MEDS: ENOXAPARIN SODIUM 40 MG/0.4 ML SYRINGE SUBQ (09:48)
[2024-09-02 09:49] VITALS: BP 133/67; PULSE 104; TEMP 36.3
--- NOTE | 2024-09-02 10:26 | P.OBPN_ITS ---
OB - PN: Subj Subjective Patient comments: no complaints and pain well controlled Benedict status: doing well Exam Constitutional Vital Signs, click to edit/add: Last Vital Signs Temp 98.2 F 09/02/24 00:23 Pulse 104 H 09/02/24 09:49 Resp 16 09/02/24 00:23 BP 133/67 09/02/24 09:49 Pulse Ox 96 09/01/24 14:10 O2 Del Method Room Air 09/02/24 00:23 Documenting provider has reviewed patient's vital signs: yes Common normals: no apparent distress Respiratory Common normals: normal respiratory effort and clear to auscultation bilaterally Cardio Common normals: regular rate and regular rhythm GI Common normals: Normal to inspection, nondistended, normoactive bowel sounds present Extremity Common normals: normal to inspection and no clubbing, cyanosis or edema Urinary Catheter Management Urinary Catheter Management Urethral: Cath placed during this visit: yes, but has since been removed by the nurse Insertion date: 08/30/24 Insertion time: 14:35 Removal date: 08/31/24 Removal time: 08:35 OB - PN: A/P Plan - day: 2 Plan: routine postop care, discharge home and other (fu 1wk) Time Spent with Patient Time: Total time spent is greater than 50% in coordination of care (as documented) at patient's floor/unit and/or counseling patient: Total time spent with greater than 50% in coordination of care (as documented) at patient's floor/unit and/or counseling patient: less than 15 minutes
== END 2024-09-02 16:32 | disposition home or self-care (01) | DRG 788 ==
PROVIDERS: Admitting Provider Obstetrics & Gynecology; Visit Provider Obstetrics & Gynecology
PROC: 10D00Z1 Extraction of Products of Conception, Low, Open Approach (ICD-10-PCS; CPT 59514; principal; 2024-08-30 21:05)
DX: O33.9 Maternal care for disproportion, unspecified (principal); O32.4XX0 Maternal care for high head at term, not applicable or unspecified; O24.429 Gestational diabetes mellitus in childbirth, unspecified control; Z3A.39 39 weeks gestation of pregnancy; Z37.0 Single live birth
CPT/HCPCS: 36415; 51702; 59050; 64488; 80307; 85025; 85027; 86850; 86900; 86901; 94667; 94668; J0665; J0690; J1650; J1885; J2274; J2300; J2371; J2765; J2795; J3010; J3490

== ENCOUNTER 2024-09-07 08:27 | Outpatient (OUT) | payer OTHER, SELFPAY ==
--- OUTSIDE RECORDS SUMMARY | 2024-09-07 08:39 | XMS_ITS | CCD ---
Author Organization [facility] CliniSyar Care Team Providers Care Oven Dumper Name Role Phone LOLA KIRBY Unavailable Unavailable LOLA KIRBY Unavailable Unavailable UNKNOWN, PROVIDER Unavailable Unavailable GERARDO DOAN Unavailable Unavail able SALCIDO, EMILIANO S Unavailable Unavailable SELF, SELF Unavailable Unavailable SALCIDO, EMILIANO S Unavailable Unavailable SALCIDO, EMILIANO S Unavailable Unavailable SALCIDO, EMILIANO S Unavailable Unavailable SALCIDO, EMILIANO S Unavailable Unavailable SALCIDO, EMILIANO S Unavailable Unavailable SALCIDO, EMILIAON S Unavailable Unavailable Gerardo Doan Primary Care Provider [phone] Colton Doanah Primary Care Provider [phone] Jessenia Wilmore Primary Care Provider Jessenia MIRANDA Wilmore Primary Care Provider Jessenia MIRANDA Wilmore Primary Care Provider Unavailable Primary Care Provider Unavailabl e CELSO, EVA Referring Unavailable COLTON DOANAH Primary Care Unavailable CELSO, EAV Attending Unavailable MEERA, JEANNA Referring Unavailable CELSO, [...] of ] 07-16-2024 Episodic Residual codes; unclassified (16 sources) Gestation period, 35 weeks; Translations: [35 [...] Name Value Interpretation Reference Range Facil ity ALL CBC WITH AUTO DIFFon BASOPHILS ABSOLUTE AUTO 0 [facility] Basophils/100 WBC (Bld) 0.2 % 0.2 - 2.0 % [facility] Eosinophils/100 WBC (Bld) 0.2 % Low 0.9 - 7.0 % [facility] Erythrocyte distribution width (RBC) [Ratio] 15.7 % High 11.0 - 15.0 % [facility] Hematocrit (Bld) [Volume fraction] 26.5 % Low 36.0 - 48.0 % [facility] Hemoglobin (Bld) [Mass/Vol] 8.8 g/dL Low 12.0 - 16.0 g/dL [facility] IMMATURE GRANULOCYTES ABS AUTO 0.13 High [facility] Immature granulocytes/100 WBC (Bld) 0.7 % High 0.0 - 0.5 % [facility] Interpretation and review of laboratory results Abnormal [facility] LYMPHOCYTES ABSOLUTE AUTO 2 [facility] Lymphocytes/100 WBC (Bld) 10.2 % Low 20.5 - 60.0 % [facility] MCH (RBC) [Entitic mass] 31.5 pg 26.7 - 34.0 pg [facility] MCHC (RBC) [Mass/Vol] 33.2 g/dL 29.9 - 35.2 g/dL [facility] MCV (RBC) [Entitic vol] 95 fL 81.0 - 99.0 fL [facility] MONOCYTES ABSOLUTE AUTO 1.3 High [facility] Monocytes/100 WBC (Bld) 6.6 % 1.7 - 12.0 % [facility] NEUTROPHILS ABSOLUTE AUTO 15.8 High [facility] Neutrophils/100 WBC (Bld) 82.1 % High 43.0 - 75.0 % [facility] Platelet mean volume (Bld) [Entitic vol] 9.9 fL 9.5 - 13.5 fL [facility] TBH EO # 0 [facility] TBH PLT 244 [facility] RBC 2.79 Low [facility] TB WBC 19.2 High [facility] Urinalysis macro (dipstick) panel (U)on 08-27-2024 Bilirubin, UA Negative Negative - 4(70) +++ mg/dL [facility] Blood, UA Negative Negative - 50 Milo/mcL [facility] Clarity, UA Clear [facility] Color, UA Yellow [facility] Glucose, UA Negative Negative - 1999(110) ++++ mg/dL [facility] Interpretation and review of laboratory results Abnormal [facility] Ketones, UA Positive Negative - 160(16) ++++ mg/dL [facility] Comment on above: 15 Leukocytes, UA Trace Negative - 500+++ Sonu/mcL [facility] Nitrite, UA Negative Negative - Positive [facility] pH, UA 7 5 - 9 [facility] Protein, UA Negative Negative - 1999(20) ++++ mg/dL [facility] Spec Grav, UA 1.02 1 - 1.03 [facility] Urobilinogen, UA 0.2 0.2 - 12 mg/dL [facility] US OB GROWTHon 08-23-[address] [address] Ultrasound Report Signed Patient: NIALL HAILE MR#: [id number] : 1995 Acct:[id number] Age/Sex: 28 / F ADM Date: 08/22/24 Loc: US Attending Dr: Jeanna Estes Ordering Physician: Jeanna Estes Date of Service: 08/22/24 Procedure(s): US OB growth Accession Number(s): [id number] cc: Jeanna Estes; Physician,Non-Staff M.DViral The [address] [address] Patient Name: NIALL HAILE MRN: [facility]:[id number] date: 1995 Sex: F Assigned Patient Location: US Current Patient Location: Accession/Order Number: [id number] Exam Date: 08/22/2024 09:00 Report Date: 08/23/2024 [...] Landers M.D. Signed By: 08/23/2414 DD/ TD/TT: Thermodynamics Teacher: [facility] Radiology, Radiologist, - 08/25/2024 The [place] [id number] Ultrasound Report Signed Patient: NIALL HAILE MR#: [id number] : 1995 Acct:[id number] Age/Sex: 28 / F ADM Date: 08/22/24 Loc: US Attending Dr: Jeanna Estes Ordering Physician: Jeanna Estes Date of Service: 08/22/24 Procedure(s): US OB growth Accession Number(s): [id number] cc: Jeanna Estes; Physician,Non-Staff MLit The [address] [address] Patient Name: NIALL HAILE MRN: [id number] date: 1995 Sex: F Assigned Patient Location: Current Patient Location: Accession/Order Number: [id number] Exam Date: 08/22/2024 09:00 Report Date: 08/23/2024 [...] Landers M.D. Signed By: 08/23/2414 DD/ TD/TT: Thermodynamics Teacher: [facility] Radiology Study observation (narrative) [facility] OB GROWTHOrdered By: Valerie ologjonathan Radiology on 08-23-2024 [facility] Work Phone: Urinalysis macro (dipstick) panel (U)on 08-20-2024 Bilirubin, UA Negative Negative - 4(70) +++ mg/dL [facility] Blood, UA Negative Negative - 50 Milo/mcL [facility] Clarity, UA Clear [facility] Color, UA Yellow [facility] Glucose, UA Negative Negative - 1999(110) ++++ mg/dL [facility] Interpretation and review of laboratory results Abnormal [facility] Ketones, UA Positive Negative - 160(16) ++++ mg/dL [facility] Leukocytes, UA Negative Negative - 500+++ Sonu/mcL [facility] Nitrite, UA Trace Negative - Positive [facility] pH, UA 7 5 - 9 [facility] Protein, UA Negative Negative - 1999(20) ++++ mg/dL [facility] Spec Grav, UA 1.015 1 - 1.03 [facility] Urobilinogen, UA 0.2 0.2 - 12 mg/dL [facility] Urinalysis macro (dipstick) panel (U)on 08-12-2024 Bilirubin, UA Negative Negative - 4(70) +++ mg/dL [facility] Blood, UA Negative Negative - 50 Milo/mcL [facility] Clarity, UA Clear [facility] Color, UA Yellow [facility] Glucose, UA Negative Negative - 1999(110) ++++ mg/dL [facility] Interpretation and review of laboratory results Normal [facility] Ketones, UA Negative Negative - 160(16) ++++ mg/dL [facility] Leukocytes, UA Negative Negative - 500+++ Sonu/mcL [facility] Nitrite, UA Negative Negative - Positive [facility] pH, UA 7 5 - 9 [facility] Protein, UA Negative Negative - 1999(20) ++++ mg/dL [facility] Spec Grav, UA 1.01 1 - 1.03 [facility] Urobilinogen, UA 0.2 0.2 - 12 mg/dL [facility] ALL CBC WITH AUTO DIFFon BASOPHILS ABSOLUTE AUTO 0 [facility] Basophils/100 WBC (Bld) 0.2 % 0.2 - 2.0 % [facility] Eosinophils/100 WBC (Bld) 0.4 % Low 0.9 - 7.0 % [facility] Erythrocyte distribution width (RBC) [Ratio] 15.6 % High 11.0 - 15.0 % [facility] Hematocrit (Bld) [Volume fraction] 33.4 % Low 36.0 - 48.0 % [facility] Hemoglobin (Bld) [Mass/Vol] 10.7 g/dL Low 12.0 - 16.0 g/dL [facility] IMMATURE GRANULOCYTES ABS AUTO 0.31 High [facility] Immature granulocytes/100 WBC (Bld) 2 % High 0.0 - 0.5 % [facility] Interpretation and review of laboratory results Abnormal [facility] LYMPHOCYTES ABSOLUTE AUTO 2.2 [facility] Lymphocytes/100 WBC (Bld) 13.8 % Low 20.5 - 60.0 % [facility] MCH (RBC) [Entitic mass] 30.4 pg 26.7 - 34.0 pg [facility] MCHC (RBC) [Mass/Vol] 32 g/dL 29.9 - 35.2 g/dL [facility] MCV (RBC) [Entitic vol] 94.9 fL 81.0 - 99.0 fL [facility] MONOCYTES ABSOLUTE AUTO 1.3 High [facility] Monocytes/100 WBC (Bld) 8 % 1.7 - 12.0 % [facility] NEUTROPHILS ABSOLUTE AUTO 11.9 High [facility] Neutrophils/100 WBC (Bld) 75.6 % High 43.0 - 75.0 % [facility] Platelet mean volume (Bld) [Entitic vol] 10.2 fL 9.5 - 13.5 fL [facility] TBH EO # 0.1 [facility] PLT 346 [facility] RBC 3.52 Low [facility] TB WBC 15.7 High [facility] Urinalysis macro (dipstick) panel (U)on 08-06-2024 Bilirubin, UA Negative Negative - 4(70) +++ mg/dL [facility] Blood, UA Negative Negative - 50 Milo/mcL [facility] Clarity, UA Clear [facility] Color, UA Yellow [facility] Glucose, UA Negative Negative - 1999(110) ++++ mg/dL [facility] Interpretation and review of laboratory results Abnormal [facility] Ketones, UA Positive Negative - 160(16) ++++ mg/dL [facility] Comment on above: 40 Leukocytes, UA Moderate Negative - 500+++ Sonu/mcL [facility] Nitrite, UA Negative Negative - Positive [facility] pH, UA 7 5 - 9 [facility] Protein, UA Negative Negative - 1999(20) ++++ mg/dL [facility] Spec Grav, UA 1.015 1 - 1.03 [facility] Urobilinogen, UA 0.2 0.2 - 12 mg/dL [facility] Urinalysis macro (dipstick) panel (U)on 07-16-2024 Bilirubin, UA Negative Negative - 4(70) +++ mg/dL [facility] Blood, UA Negative Negative - 50 Milo/mcL [facility] Clarity, UA Clear [facility] Color, UA Yellow [facility] Glucose, UA Negative Negative - 1999(110) ++++ mg/dL [facility] Interpretation and review of laboratory results Abnormal [facility] Ketones, UA Positive Negative - 160(16) ++++ mg/dL [facility] Comment on above: trace Leukocytes, UA Positive Negative - 500+++ Sonu/mcL [facility] Comment on above: small Nitrite, UA Negative Negative - Positive [facility] pH, UA 6 5 - 9 [facility] Protein, UA Negative Negative - 1999(20) ++++ mg/dL [facility] Spec Grav, UA 1.02 1 - 1.03 [facility] Urobilinogen, UA 0.2 0.2 - 12 mg/dL [facility] Urinalysis macro (dipstick) panel (U)on 07-02-2024 Bilirubin, UA Negative Negative - 4(70) +++ mg/dL [facility] Blood, UA Negative Negative - 50 Milo/mcL [facility] Clarity, UA Clear [facility] Color, UA Yellow [facility] Glucose, UA Negative Negative - 1999(110) ++++ mg/dL [facility] Interpretation and review of laboratory results Abnormal [facility] Ketones, UA Positive Negative - 160(16) ++++ mg/dL [facility] Leukocytes, UA Many Negative - 500+++ Sonu/mcL [facility] Nitrite, UA Negative Negative - Positive [facility] pH, UA 7 5 - 9 [facility] Protein, UA Negative Negative - 1999(20) ++++ mg/dL [facility] Spec Grav, UA 1.02 1 - 1.03 [facility] Urobilinogen, UA 1.0 0.2 - 12 mg/dL [facility] FAX REQUESTon 06-18-2024 FAX TO [phone] [facility] Comment on above: Result Comment: Test ing performed at [place], [place] [address] Performed By: #### F X #### [place] [address] GTT 3HR GESTATIONALon 2023 Glucose [Mass/Vol] 57 mg/dL Low 65-140 [facility] Comment on above: Result Comment: Test ing performed at [place] [address] Performed By: #### F X #### [place] [address] Glucose [Mass/Vol] 140 mg/dL Normal 65-165 [facility] Comment on above: Result Comment: Test ing performed at [place] [address] Performed By: #### F X #### [place] [address] Glucose [Mass/Vol] 210 mg/dL High 65-190 [facility] Comment on above: Result Comment: Test ing performed at [place] [address] Performed By: #### F X #### [place] [address] Glucose [Mass/Vol] 96 mg/dL Normal <100 [facility] Comment on above: Result Comment: Test ing performed at [place] [address] Performed By: #### F X #### [place] [address] Urinalysis macro (dipstick) panel (U)on 06-04-2024 Bilirubin, UA Negative Negative - 4(70) +++ mg/dL [facility] Blood, UA Positive Negative - 50 Milo/mcL [facility] Comment on above: trace Clarity, UA Clear [facility] Color, UA Yellow [facility] Glucose, UA Negative Negative - 2000(110) ++++ mg/dL [facility] Interpretation and review of laboratory results Abnormal [facility] Ketones, UA Negative Negative - 160(16) ++++ mg/dL [facility] Leukocytes, UA Positive Negative - 500+++ Sonu/mcL [facility] Comment on above: small Nitrite, UA Negative Negative - Positive [facility] pH, UA 7 5 - 9 [facility] Protein, UA Negative Negative - 2000(20) ++++ mg/dL [facility] Spec Grav, UA 1.015 1 - 1.03 [facility] Urobilinogen, UA 0.2 0.2 - 12 mg/dL [facility] CBCon 05-28-2024 ABSOLUTE BAS 0.0 10*3/uL Normal 0.0-0.2 [facility] Comment on above: Result Comment: Test ing performed at [place] [address] Performed By: #### F X #### [place] [address] ABSOLUTE EOS 0.0 10*3/uL Normal 0.0-0.7 [facility] Comment on above: Performed By: #### F X #### [place] [address] ABSOLUTE NEUTROPHIL COUNT 11.0 10*3/uL High 1.4-6.5 [facility] Comment on above: Performed By: #### F X #### [place] [address] Basophils/100 WBC (Bld) 0.1 % Normal 0.0-2.0 [facility] Comment on above: Performed By: #### F X #### [place] [address] DTYPE AUTO DIFF Normal [facility] Comment on above: Performed By: #### F X #### [place] [address] Eosinophils/100 WBC (Bld) 0.2 % Normal 0.0-11.0 [facility] Comment on above: Performed By: #### F X #### [place] [address] Lymphocytes (Bld) [#/Vol] 1.4 10*3/uL Normal 1.2-3.4 [facility] Comment on above: Performed By: #### F X #### [place] [address] Lymphocytes/100 WBC (Bld) 10.8 % Low 20.0-55.0 [facility] Comment on above: Performed By: #### F X #### Testing performed at [address] [address] Monocytes (Bld) [#/Vol] 0.6 10*3/uL Normal 0.0-0.7 [facility] Comment on above: Performed By: #### F X #### Testing performed at [place] [id number] Monocytes/100 WBC (Bld) 4.2 % Normal 0.0-10.0 [facility] Comment on above: Performed By: #### F X #### Testing performed at [place] [id number] Neutrophils/100 WBC (Bld) 84.7 % High 37.0-75.0 [facility] Comment on above: Performed By: #### F X #### Testing performed at [place] [id number] Erythrocyte distribution width (RBC) [Ratio] 13.3 % Normal 11.5-14.5 [facility] Comment on above: Performed By: #### F X #### Testing performed at [place] [id number] Hematocrit (Bld) [Volume fraction] 29.4 % Low 36.0-48.0 [facility] Comment on above: Performed By: #### F X #### Testing performed at [address] [address] Hemoglobin (Bld) [Mass/Vol] 10.0 g/dL Low 12.0-16.0 [facility] Comment on above: Performed By: #### F X #### Testing performed at [address] [address] MCH (RBC) [Entitic mass] 31.4 pg Normal 26.0-35.0 [facility] Comment on above: Performed By: #### F X #### Testing performed at [address] [address] MCHC (RBC) [Mass/Vol] 34.1 g/dL Normal 27.0-37.0 [facility] Comment on above: Performed By: #### F X #### Testing performed at [place] [id number] MCV (RBC) [Entitic vol] 92.0 fL Normal 80.0-100.0 [facility] Comment on above: Performed By: #### F X #### Testing performed at [place] [id number] Platelet mean volume (Bld) [Entitic vol] 7.2 fL Low 7.4-11.0 [facility] Comment on above: Performed By: #### F X #### [place] [address] Platelets (Bld) [#/Vol] 403 10*3/uL High 130-400 [facility] Comment on above: Performed By: #### F X #### Testing performed at [place] [id number] RBC (Bld) [#/Vol] 3.20 10*6/uL Low 4.0-5.4 [facility] Comment on above: Performed By: #### F X #### Testing performed at [place] [id number] WBC (Bld) [#/Vol] 13.0 10*3/uL High 3.6-11.0 [facility] Comment on above: Performed By: #### F X #### Testing performed at [place] [id number] FAX REQUESTon 05-28-2024 FAX TO [phone] Normal [facility] Comment on above: Result Comment: CONCHITA ECTED ON 05/28 AT 1651: PREVIOUSLY REPORTED [phone] Performed By: #### F X #### Testing performed at [place] [id number] GLUCOSE 1 HR PCon 05-28-2024 Glucose [Mass/Vol] 146 mg/dL Normal 65-200 [facility] Comment on above: Result Comment: Test ing performed at [place], [place] [address] Performed By: #### F X #### [place] [address] Urinalysis macro (dipstick) panel (U)on 05-07-2024 Bilirubin, UA Negative Negative - 4(70) +++ mg/dL [facility] Blood, UA Negative Negative - 50 Milo/mcL [facility] Clarity, UA Clear [facility] Color, UA Yellow [facility] Glucose, UA Negative Negative - 1999(110) ++++ mg/dL [facility] Interpretation and review of laboratory results Abnormal [facility] Ketones, UA Negative Negative - 160(16) ++++ mg/dL [facility] Leukocytes, UA Trace Negative - 500+++ Sonu/mcL [facility] Nitrite, UA Negative Negative - Positive [facility] pH, UA 7.0 5 - 9 [facility] Protein, UA Negative Negative - 1999(20) ++++ mg/dL [facility] Spec Grav, UA 1.010 1 - 1.03 [facility] Urobilinogen, UA 0.2 0.2 - 12 mg/dL [facility] IGP,APTIMA HPV,AGE GDLNon AGE GDLN ACOG TESTING Note . [facility] Comment on above: TESTS RESULT FLAG UN ITS REF RANGE LAB Clinician Provided Cytology Information Source.............Cervix No. of containers..01 ThinPrep Vial Age Algo ACOG Viktoria... FLAG LEGEND: L-Low Normal,H-High Normal,LL-Alert Low,HH-Alert High <-Panic Low,>-Panic High,A-Abnormal,AA-Critical Abnormal Performed at: 01 =G [facility] [address] [place] [address] Kayleen Nielson MD, IGP, RFX APTIMA HPV ASCU Note . [facility] Comment on above: TESTS RESULT FLAG UN ITS REF RANGE LAB DIAGNOSIS: 02 NEGATIVE FOR INTRAEPITHELIAL LESION OR MALIGNANCY. Specimen adequacy: 02 Satisfactory for evaluation. No endocervical component is identified. Performed by: 02 Henok Adames, Tier Lift Operator ([facility]) . 02 Note: Note 02 The Pap [...] <-Panic Low,>-Panic High,A-Abnormal,AA-Critical Abnormal Performed at: [address] [address] Kayleen Nielson MD, Performed at: = - [address] [id number] Records Section Supervisor: Kayleen Nielson MD, Phone: [phone] Performed at: [address] [id number] Records Section Supervisor: Kayleen Nielson MD, Phone: [phone] SPATULA-ALONE CERVIX [facility] URETHRITIS/DISCHARGE PLUS VA GINITIS (HTRX)on 04-10-2024 ATOPOBIUM VAGINAE 0.000 [facility] ATOPOBIUM VAGINAE Not detected [facility] BVAB 2,3 (BACTERIAL VAGINOSIS ASSOCIATED BACTERIA 2, 3); MOBILUNCUS SPP 0.000 [facility] BVAB 2,3 (BACTERIAL VAGINOSIS ASSOCIATED BACTERIA 2, 3); MOBILUNCUS SPP Not detected [facility] OMER ALBICANS, PARAPSILOSIS, TROPICALIS 0.000 [facility] OMER ALBICANS, PARAPSILOSIS, TROPICALIS Not detected [facility] OMER GLABRATA 0.000 [facility] OMER GLABRATA Not detected [facility] OMER KRUSEI 0.000 [facility] OMER KRUSEI Not detected [facility] CHLAMYDIA TRACHOMATIS 0.000 [facility] CHLAMYDIA TRACHOMATIS Not detected [facility] GARDNERELLA VAGINALIS 0.000 [facility] GARDNERELLA VAGINALIS Not detected [facility] MEGASPHAERA (TYPES 1, 2) 0.000 [facility] MEGASPHAERA (TYPES 1, 2) Not detected [facility] MYCOPLASMA GENITALIUM 0.000 [facility] MYCOPLASMA GENITALIUM Not detected [facility] NEISSERIA GONORRHOEAE 0.000 [facility] NEISSERIA GONORRHOEAE Not detected [facility] TRICHOMONAS VAGINALIS 0.000 [facility] TRICHOMONAS VAGINALIS Not detected [facility] Urinalysis macro (dipstick) panel (U)on 04-09-2024 Bilirubin, UA Negative Negative - 4(70) +++ mg/dL [facility] Blood, UA Negative Negative - 50 Milo/mcL [facility] Clarity, UA Cloudy [facility] Color, UA Yellow [facility] Glucose, UA Negative Negative - 1999(110) ++++ mg/dL [facility] Interpretation and review of laboratory results Abnormal [facility] Ketones, UA Negative Negative - 160(16) ++++ mg/dL [facility] Leukocytes, UA Positive Negative - 500+++ Sonu/mcL [facility] Nitrite, UA Negative Negative - Positive [facility] Comment on above: small pH, UA 8.0 5 - 9 [facility] Protein, UA Negative Negative - 1999(20) ++++ mg/dL [facility] Spec Grav, UA 1.020 1 - 1.03 [facility] Urobilinogen, UA 0.2 0.2 - 12 mg/dL [facility] RPRon 02-10-2024 Reagin Ab RPR Ql (S) Non-Reactive Normal NONREACTIVE A [facility] Comment on above: Result Comment: Test ing performed at [place] [address] Performed By: #### R UBL, ACBC, FX, GHIV, ARPR #### Testing performed at [place] [address] RUBELLA SCREENon 02-10-2024 RUBELLA SCREEN Positive Normal POSITIVE [facility] Comment on above: Result Comment: POSI TIVE RESULT INDICATES PRESUMED IMMUNITY Testing performed at [place] [address] Performed By: #### R UBL, ACBC, FX, GHIV, ARPR #### [place] [address] HEP B SURFACE AGon HEP B SURFACE AG Negative Normal NEGATIVE [facility] Comment on above: Performed By: #### F X #### [place] [address] HEP C ABon 02-07-2024 HEP C AB Negative Normal NEGATIVE [facility] Comment on above: Performed By: #### F X #### [place] [address] CBCon 02-06-2024 ABSOLUTE BAS 0.0 10*3/uL Normal 0.0-0.2 [facility] Comment on above: Result Comment: Test ing performed at [place] [address] Performed By: #### R UBL, ACBC, FX, GHIV, ARPR #### [place] [address] ABSOLUTE EOS 0.1 10*3/uL Normal 0.0-0.7 [facility] Comment on above: Performed By: #### R UBL, ACBC, FX, GHIV, ARPR #### [place] [address] ABSOLUTE NEUTROPHIL COUNT 9.0 10*3/uL High 1.4-6.5 [facility] Comment on above: Performed By: #### R UBL, ACBC, FX, GHIV, ARPR #### [place] [address] Basophils/100 WBC (Bld) 0.2 % Normal 0.0-2.0 [facility] Comment on above: Performed By: #### R UBL, ACBC, FX, GHIV, ARPR #### [place] [address] DTYPE AUTO DIFF Normal [facility] Comment on above: Performed By: #### R UBL, ACBC, FX, GHIV, ARPR #### [place] [address] Eosinophils/100 WBC (Bld) 0.6 % Normal 0.0-11.0 [facility] Comment on above: Performed By: #### R UBL, ACBC, FX, GHIV, ARPR #### [place] [address] Lymphocytes (Bld) [#/Vol] 2.2 10*3/uL Normal 1.2-3.4 [facility] Comment on above: Performed By: #### R UBL, ACBC, FX, GHIV, ARPR #### [place] [address] Lymphocytes/100 WBC (Bld) 18.4 % Low 20.0-55.0 [facility] Comment on above: Performed By: #### R UBL, ACBC, FX, GHIV, ARPR #### [place] [address] Monocytes (Bld) [#/Vol] 0.8 10*3/uL High 0.0-0.7 [facility] Comment on above: Performed By: #### R UBL, ACBC, FX, GHIV, ARPR #### [place] [address] Monocytes/100 WBC (Bld) 6.3 % Normal 0.0-10.0 [facility] Comment on above: Performed By: #### R UBL, ACBC, FX, GHIV, ARPR #### [place] [address] Neutrophils/100 WBC (Bld) 74.5 % Normal 37.0-75.0 [facility] Comment on above: Performed By: #### R UBL, ACBC, FX, GHIV, ARPR #### [place] [address] Erythrocyte distribution width (RBC) [Ratio] 13.5 % Normal 11.5-14.5 [facility] Comment on above: Performed By: #### R UBL, ACBC, FX, GHIV, ARPR #### [place] [address] Hematocrit (Bld) [Volume fraction] 36.2 % Normal 36.0-48.0 [facility] Comment on above: Performed By: #### R UBL, ACBC, FX, GHIV, ARPR #### [place] [address] Hemoglobin (Bld) [Mass/Vol] 12.0 g/dL Normal 12.0-16.0 [facility] Comment on above: Performed By: #### R UBL, ACBC, FX, GHIV, ARPR #### [place] [address] MCH (RBC) [Entitic mass] 29.6 pg Normal 26.0-35.0 [facility] Comment on above: Performed By: #### R UBL, ACBC, FX, GHIV, ARPR #### Testing performed at [place] [id number] MCHC (RBC) [Mass/Vol] 33.0 g/dL Normal 27.0-37.0 [facility] Comment on above: Performed By: #### R UBL, ACBC, FX, GHIV, ARPR #### [place] [address] MCV (RBC) [Entitic vol] 89.7 fL Normal 80.0-100.0 [facility] Comment on above: Performed By: #### R UBL, ACBC, FX, GHIV, ARPR #### [place] [address] Platelet mean volume (Bld) [Entitic vol] 6.9 fL Low 7.4-11.0 [facility] Comment on above: Performed By: #### R UBL, ACBC, FX, GHIV, ARPR #### Testing performed at [place] [id number] Platelets (Bld) [#/Vol] 406 10*3/uL High 130-400 [facility] Comment on above: Performed By: #### R UBL, ACBC, FX, GHIV, ARPR #### Testing performed at [place] [id number] RBC (Bld) [#/Vol] 4.04 10*6/uL Normal 4.0-5.4 [facility] Comment on above: Performed By: #### R UBL, ACBC, FX, GHIV, ARPR #### Testing performed at [place] [id number] WBC (Bld) [#/Vol] 12.1 10*3/uL High 3.6-11.0 [facility] Comment on above: Performed By: #### R UBL, ACBC, FX, GHIV, ARPR #### [place] [address] FAX REQUESTon 02-06-2024 FAX TO [phone] [facility] Comment on above: Result Comment: Test ing performed at [place] [address] Performed By: #### F X #### [place] [address] FAX TO [phone] [facility] Comment on above: Result Comment: Test ing performed at [place] [address] Performed By: #### F X #### [place] [address] FAX TO [phone] [facility] Comment on above: Result Comment: Test ing performed at [place] [address] Performed By: #### F X #### [place] [address] FAX TO [phone] [facility] Comment on above: Result Comment: Test ing performed at [place] [address] Performed By: #### F X, HA1CT #### [place] [address] FAX TO [phone] [facility] Comment on above: Result Comment: Test ing performed at [place] [address] Performed By: #### R UBL, ACBC, FX, GHIV, ARPR #### [place] [address] HEMOGLOBIN A1Con 02-06-2024 Glucose [Mass/Vol] 100 mg/dL [facility] Comment on above: Result Comment: Test ing performed at [place] [address] Performed By: #### F X, HA1CT #### [place] [address] HbA1c (Bld) [Mass fraction] 5.1 % Normal 0-6 [facility] Comment on above: Result Comment: NORMAL <5.7% PREDIABETES 5.7-6.4% DIABETES 6.5% OR HIGHER Performed By: #### F X, HA1CT #### [place] [address] HIV 1,2 ABon 02-06-2024 HIV 1,2 Non-Reactive Normal NONREACTIVE [facility] Comment on above: Result Comment: Test ing performed at [place] [address] Performed By: #### R UBL, ACBC, FX, GHIV, ARPR #### [place] [address] TYPE AND SCREEN CROSSMATCH C ONVERTIBLEon 02-06-2024 TYPE AND SCREEN CROSSMATCH CONVERTIBLE WORKUP EXPIRES 02/09/2024,2359 ABO/RH(D) O POSITIVE ANTIBODY SCREEN NEGATIVE ARM BAND NUMBER [id number] Testing performed at [place] [address] Normal [facility] Comment on above: Performed By: #### T SCC #### [place] [address] URINE CULTUREon 02-06-2024 Bacteria identified Cx Nom (U) SPECIMEN DESCRIPTION URINE CLEAN CATCH CULTURE NO PATHOGENS ISOLATED * Result Note: Testing performed at [place] [address] * REPORT STATUS 02/08/2024 * Result Note: FINAL * Normal [facility] Comment on above: Performed By: #### A URNC #### [place] [address] ECHOCARDIOGRAM TREADMILL STR ESS TESTOrdered By: Gerardo [...] were monitored. An Echocardiogram was performed by theater technician in four stages in quad fashion. At peak stress, four selected images were obtained and placed side by side with resting images for comparison. Stress Test Details Test: Exercise stress testing was performed using a Rodger protocol. HR Resting HR: 109 bpm Max Heart Rate (APMHR): 194.385428 bpm Max HR Achieved: 200 bpm Target HR (85% APMHR): 164.490644 bpm % of APMHR: 103.09 Recovery HR: [...] 13.70 METs Scale: Active Angina Score: None Ask The Doctor User, Interfaces - 02/18/2021 12:14 AM EDT [...] were monitored. An Echocardiogram was performed by theater technician in four stages in quad fashion. At peak stress, four selected images were obtained and placed side by side with resting images for comparison. Stress Test Details Test: Exercise stress testing was performed using a Rodger protocol. HR Resting HR: 109 bpmMax Heart Rate (APMHR): 194.433895 bpm Max HR Achieved: 200 bpmTarget HR (85% APMHR): 164.823570 bpm % of APMHR: 103.09 Recovery HR: [...] 13.70 METs Scale: Active Angina Score: None [facility] ECGOrdered By: Gerardo Doan on 01-27-2021 [facility] B12 & FOLATEOrdered By: Yessy Doan on 01-17-2021 Cobalamin (Vitamin B12) [Mass/Vol] 383 pg/mL 239 - 931 PG/ML [facility] Folate [Mass/Vol] 19.7 ng/mL [facility] Comment on above: Testing performed at [place], [place] [address] [facility] CBC, EDIF, PLATELETOrdered B y: Gerardo Doan on 01-17-2021 ABSOLUTE BASOPHIL COUNT 0.1 10*3/uL 0.0 - 0.2 10*3/uL [facility] Comment on above: Testing performed at [place] [address] Basophils/100 WBC (Bld) 0.4 % 0.0 - 2.0 % [facility] Differential cell count method Nom (Bld) AUTO DIFF % [facility] Eosinophils (Bld) [#/Vol] 0.10 10*3/uL 0.0 - 0.7 10*3/uL [facility] Eosinophils/100 WBC (Bld) 0.6 % 0.0 - 11.0 % [facility] Erythrocyte distribution width (RBC) [Ratio] 13.2 % 11.5 - 14.5 % [facility] Hematocrit (Bld) [Volume fraction] 39.3 % 36.0 - 48.0 % [facility] Hemoglobin (Bld) [Mass/Vol] 13.6 g/dL [facility] Interpretation and review of laboratory results Abnormal [facility] Lymphocytes (Bld) [#/Vol] 1.90 10*3/uL 1.2 - 3.4 10*3/uL [facility] Lymphocytes/100 WBC (Bld) 13.6 % Low 20.0 - 55.0 % [facility] MCH (RBC) [Entitic mass] 31.1 pg 26.0 - 35.0 PG [facility] MCHC (RBC) [Mass/Vol] 34.7 g/dL [facility] MCV (RBC) [Entitic vol] 89.6 fL [facility] Monocytes (Bld) [#/Vol] 0.5 10*3/uL 0.0 - 0.7 10*3/uL [facility] Monocytes/100 WBC (Bld) 3.5 % 0.0 - 10.0 % [facility] Neutrophils (Bld) [#/Vol] 11.3 10*3/uL High 1.4 - 6.5 10*3/uL [facility] Neutrophils/100 WBC (Bld) 81.9 % High 37.0 - 75.0 % [facility] Platelet mean volume (Bld) [Entitic vol] 7.6 fL [facility] Platelets (Bld) [#/Vol] 483 10*3/uL High 130.0 - 400.0 10*3/uL [facility] RBC (Bld) [#/Vol] 4.38 10*6/uL 4.0 - 5.4 10*6/uL [facility] WBC (Bld) [#/Vol] 13.8 10*3/uL High 3.6 - 11.0 10*3/uL [facility] COMPREHENSIVE METABOLIC PANE LOrdered By: Gerardo Doan on 01-17-2021 Albumin [Mass/Vol] 4.6 G/dl 3.5 - 5.0 G/dl [facility] Albumin/Globulin [Mass ratio] 1.4 {ratio} [facility] ALP [Catalytic activity/Vol] 57 U/L [facility] ALT [Catalytic activity/Vol] 18 U/L <35 IU/L [facility] AST [Catalytic activity/Vol] 21 U/L [facility] Bilirubin [Mass/Vol] 0.4 mg/dL [facility] Calcium [Mass/Vol] 10.3 mg/dL High [facility] Chloride [Moles/Vol] 106 mmol/L [facility] Comment on above: Please note: Triglyc eride levels of 600mg/dL or higher may positively bias chloride results by approximately 2.1 mmol CO2 [Moles/Vol] 21 mmol/L Low [facility] Creatinine [Mass/Vol] 0.50 mg/dL Low [facility] GFR COMMENT Average GFR for 20-2 9 years old = 116. [facility] Comment on above: Chronic Kidney disea se, GFR = <60. Kidney failure, GFR = <15. The GFR estimate is not adjusted for extreme body surface area or acute process, nor has it been validated for women or ethnic groups other than and . Testing performed at [place], [place] [address] GFR/1.73 sq M.predicted among blacks MDRD (S/P/Bld) [Vol rate/Area] mL/min/{1.73_m2} ml/min/1.73sq.m [facility] GFR/1.73 sq M.predicted among non-blacks MDRD (S/P/Bld) [Vol rate/Area] mL/min/{1.73_m2} ml/min/1.73sq.m [facility] Glucose post fast [Mass/Vol] 105 mg/dL High [facility] Comment on above: NORMAL <100 mg/dL PREDIABETES 101-126 mg/dL DIABETES 126 mg/dL or higher Interpretation and review of laboratory results Abnormal [facility] Potassium [Moles/Vol] 4.1 mmol/L [facility] Protein [Mass/Vol] 8.0 g/dL [facility] Sodium [Moles/Vol] 138 mmol/L [facility] Urea nitrogen [Mass/Vol] 8 mg/dL [facility] HEMOGLOBIN [id number] By: Sa edi Doan on 01-17-2021 Glucose [Mass/Vol] 100 mg/dL [facility] Comment on above: Testing performed at [place], [place] [address] HbA1c (Bld) [Mass fraction] 5.1 % 0 - 6 % [facility] Comment on above: NORMAL <5.7% PREDIABETES 5.7-6.4% DIABETES 6.5% OR HIGHER [facility] IRON/IRON BINDING/TRANSFERRI NOrdered By: Gerardo Doan on 01-17-2021 Interpretation and review of laboratory results Abnormal [facility] Iron [Mass/Vol] 145 ug/dL [facility] Iron binding capacity [Mass/Vol] 505 High [facility] Iron saturation [Mass fraction] 29 % [facility] Comment on above: Testing performed at [address] TSHOrdered By: Gerardo Doan on 01-17-2021 TSH Qn 1.420 m[IU]/L [facility] Comment on above: Testing performed at [address] PROGRESSon 04-25-2018 [facility] NOTES Normal [facility] PROGRESSon 02-19-2018 [facility] NOTES Normal [facility] PROGRESSon 02-13-2018 [facility] NOTES Normal [facility] PAP, ThinPrep, rfx HPV ASCUS on 02-15-2017 Comment Normal [facility] Comment on above: Result Comment: IGLB P CPT CODE AUTOMATION: (NOTE)IGLBP CPT CODE AUTOMATION: This liquid based ThinPrep(R) pap test was screenedwith theIGLBP CPT CODE AUTOMATION: use of an image guided system. Performed By: #### L PRAS ####[facility] [address] [place] [address] lab Director: Dr. Lauro Merino, Diagnosis Normal [facility] Comment on above: Result Comment: Comm ent(NOTE)NEGATIVE FOR INTRAEPITHELIAL LESION AND MALIGNANCY.CELLULAR CHANGES ASSOCIATED WITH INFLAMMATION ARE PRESENT.THIS SPECIMEN WAS RESCREENED PART OF OUR LEAD DATA ENTRY OPERATOR PROGRAM. Performed By: #### L PRAS ####[facility] [address] [place] [address] lab Director: Dr. Lauro Merino DO IGLBP CPT COde Comment [facility] Comment on above: Performed By: #### L PRAS ####[facility] [address] [place] [address] lab Director: Dr. Lauro Merino, Note [facility] Comment on above: Result Comment: Comm ent(NOTE)The Pap smear is a screening test designed to aid in the detection ofpremalignant and malignant conditions of the uterine cervix. It isnot a diagnostic procedure and should not be used as the sole meansof detecting cervical cancer. Both false-positive and false-negativereports do occur. Performed By: #### L PRAS ####[facility] [address] [place] [address] Lab Director: Dr. Lauro Merino DO Performed By Comment Kareen Lucero, Tier Lift Operator [facility] Comment on above: Performed By: #### L PRAS ####[facility] [address] [place] [address] Lab Director: Dr. Lauro Merino DO Performed By [facility] Comment on above: Performed By: #### L PRAS ####[facility] [address] [place] [address] Lab Director: Dr. Lauro Merino DO QC Reviewed By Comment Dedra Yip , Supervisory Tier Lift Operator (ASCP) [facility] Comment on above: Performed By: #### L PRAS ####[facility] [address] [place] [address] Lab Director: Dr. Lauro Merino DO Spec Adequacy [facility] Comment on above: Result Comment: Comm ent(NOTE)Satisfactory for evaluation. Endocervical and/or squamous metaplasticcells (endocervical component) are present. Performed By: #### L PRAS ####[facility] [address] [place] [address] Lab Director: Dr. Lauro Merino DO Specimen # [id number] [facility] Comment on above: Performed By: #### L PRAS ####[facility] [address] [place] [address] Lab Director: Dr. Lauro Merino DO . [facility] Comment on above: Result Comment: Comm ent(NOTE)The HPV DNA reflex criteria were not met with this specimen resulttherefore, no HPV testing was performed.No. of containers..01 CYTYC Thin Prep [facility]ialPERFORMED AT [facility] Performed By: #### L PRAS ####[facility] [address] [place] [address] lab Director: Dr. Lauro Merino DO . . [facility] Comment on above: Performed By: #### L PRAS ####[facility] [address] [place] [address] lab Director: Dr. Lauro Merino DO Vital Signs Date Time Vital Sign Value Performing Clinician Facility 08-27-2024 08:22-0500 Body weight 75.75 kg Eva Celso DO Work Phone: [facility] 08-27-2024 08:22-0500 Diastolic blood pressure 74 mm[Hg] Eva Celso DO Work Phone: [facility] 08-27-2024 08:22-0500 Systolic blood pressure 122 mm[Hg] Eva Celso DO Work Phone: [facility] 08-20-2024 10:27-0500 Body weight 75.3 kg Jeanna Estes PA Work Phone: [facility] 08-20-2024 10:27-0500 Diastolic blood pressure 72 mm[Hg] Jeanna Estes PA Work Phone: [facility] 08-20-2024 10:27-0500 Systolic blood pressure 120 mm[Hg] Jeanna Estes PA Work Phone: [facility] 08-12-2024 14:32-0500 Body weight 76.11 kg Eva Celso DO Work Phone: [facility] 08-12-2024 14:32-0500 Diastolic blood pressure 66 mm[Hg] Eva Celso DO Work Phone: [facility] 08-12-2024 14:32-0500 Systolic blood pressure 124 mm[Hg] Eva Celso DO Work Phone: [facility] 08-06-2024 15:49-0500 Body weight 76.11 kg Jeanna Estes PA Work Phone: [facility] 08-06-2024 15:49-0500 Diastolic blood pressure 70 mm[Hg] Jeanna Meera PA Work Phone: [facility] 08-06-2024 15:49-0500 Systolic blood pressure 120 mm[Hg] Jeanna Meera PA Work Phone: [facility] 07-16-2024 11:01-0500 Body weight 75.75 kg Jeanna Meera PA Work Phone: [facility] 07-16-2024 11:01-0500 Diastolic blood pressure 72 mm[Hg] Jeanna Westport PA Work Phone: [facility] 07-16-2024 11:01-0500 Systolic blood pressure 116 mm[Hg] Jeanna Westport PA Work Phone: [facility] 07-02-2024 10:02-0500 Body weight 75.93 kg Jeanna Westport PA Work Phone: [facility] 07-02-2024 10:02-0500 Diastolic blood pressure 70 mm[Hg] Jeanna Meera PA Work Phone: [facility] 07-02-2024 10:02-0500 Systolic blood pressure 112 mm[Hg] Jeanna Meera PA Work Phone: [facility] 06-18-2024 15:14-0500 Body weight 76.11 kg Jeanna Meera PA Work Phone: [facility] 06-18-2024 15:14-0500 Diastolic blood pressure 76 mm[Hg] Jeanna Westport PA Work Phone: [facility] 06-18-2024 15:14-0500 Systolic blood pressure 114 mm[Hg] Jeanna Westport PA Work Phone: [facility] 06-04-2024 11:00-0500 Body weight 75.3 kg Eva Celso DO Work Phone: [facility] 06-04-2024 11:00-0500 Diastolic blood pressure 72 mm[Hg] Eva Eclso DO Work Phone: [facility] 06-04-2024 11:00-0500 Systolic blood pressure 118 mm[Hg] Eva Celso DO Work Phone: [facility] 05-07-2024 10:50-0400 Body weight 76.11 kg Jeanna Carranzaey PA Work Phone: [facility] 05-07-2024 10:50-0400 Diastolic blood pressure 70 mm[Hg] Jeanna Meera PA Work Phone: [facility] 05-07-2024 10:50-0400 Systolic blood pressure 120 mm[Hg] Jeanna Carranzaey PA Work Phone: [facility] 04-09-2024 09:14-0400 Body weight 73.94 kg Eva Celso DO Work Phone: [facility] 04-09-2024 09:14-0400 Diastolic blood pressure 72 mm[Hg] Eva Celso DO Work Phone: [facility] 04-09-2024 09:14-0400 Systolic blood pressure 120 mm[Hg] Eva Celso DO Work Phone: [facility] 03-27-2023 09:16-0400 Body height 157.5 cm Ami Hay CLINICAL INFORMATICS SPEC-COLD WATER MACHINE OPERATOR Work Phone: [facility] 03-27-2023 09:16-0400 Body mass index (BMI) [Ratio] 29.26 kg/m2 Ami Hay CLINICAL INFORMATICS SPEC-COLD WATER MACHINE OPERATOR Work Phone: [facility] 03-27-2023 09:16-0400 Body weight 72.58 kg Ami Hay CLINICAL INFORMATICS SPEC-COLD WATER MACHINE OPERATOR Work Phone: [facility] 03-27-2023 09:16-0400 Diastolic blood pressure 64 mm[Hg] Ami Hay CLINICAL INFORMATICS SPEC-COLD WATER MACHINE OPERATOR Work Phone: [facility] 03-27-2023 09:16-0400 Systolic blood pressure 110 mm[Hg] Ami Hay CLINICAL INFORMATICS SPEC-COLD WATER MACHINE OPERATOR Work Phone: [facility] 03-19-2022 10:05-0400 Body height 157.5 cm Lola Kirby CLINICAL INFORMATICS SPEC-COLD WATER MACHINE OPERATOR Work Phone: [facility] 03-19-2022 10:05-0400 Body mass index (BMI) [Ratio] 30.91 kg/m2 Lola Kibry CLINICAL INFORMATICS SPEC-COLD WATER MACHINE OPERATOR Work Phone: [facility] 03-19-2022 10:05-0400 Body weight 76.66 kg Lola Kirby CLINICAL INFORMATICS SPEC-COLD WATER MACHINE OPERATOR Work Phone: [facility] 03-19-2022 10:05-0400 Diastolic blood pressure 66 mm[Hg] Lola Kirby CLINICAL INFORMATICS SPEC-COLD WATER MACHINE OPERATOR Work Phone: [facility] 03-19-2022 10:05-0400 Systolic blood pressure 122 mm[Hg] Lola Kirby CLINICAL INFORMATICS SPEC-COLD WATER MACHINE OPERATOR Work Phone: [facility] 03-17-2021 13:57-0400 Body height 157.5 cm Lola Kirby CLINICAL INFORMATICS SPEC-COLD WATER MACHINE OPERATOR Work Phone: [facility] 03-17-2021 13:57-0400 Body mass index (BMI) [Ratio] 28.9 kg/m2 Lola Kirby CLINICAL INFORMATICS SPEC-COLD WATER MACHINE OPERATOR Work Phone: [facility] 03-17-2021 13:57-0400 Body weight 71.67 kg Lola Kirby CLINICAL INFORMATICS SPEC-COLD WATER MACHINE OPERATOR Work Phone: [facility] 03-17-2021 13:57-0400 Diastolic blood pressure 76 mm[Hg] Lola Kirby CLINICAL INFORMATICS SPEC-COLD WATER MACHINE OPERATOR Work Phone: [facility] 03-17-2021 13:57-0400 Systolic blood pressure 122 mm[Hg] Lola Kirby CLINICAL INFORMATICS SPEC-COLD WATER MACHINE OPERATOR Work Phone: [facility] 02-01-2021 07:05-0400 Body height 157.5 cm Gerardo Doan MD Work Phone: [facility] 02-01-2021 07:05-0400 Body mass index (BMI) [Ratio] 29.07 kg/m2 Gerardo Doan MD Work Phone: [facility] 02-01-2021 07:05-0400 Body temperature 98.4 [degF] Gerardo Doan MD Work Phone: [facility] 02-01-2021 07:05-0400 Body weight 72.12 kg Gerardo Doan MD Work Phone: [facility] 02-01-2021 07:05-0400 Diastolic blood pressure 84 mm[Hg] Gerardo Doan MD Work Phone: [facility] 02-01-2021 07:05-0400 Heart rate 127 /min Gerardo Doan MD Work Phone: [facility] 02-01-2021 07:05-0400 Respiratory rate 18 /min Gerardo Doan MD Work Phone: [facility] 02-01-2021 07:05-0400 SaO2% (BldA) [Mass fraction] 99 % Gerardo Doan MD Work Phone: [facility] 02-01-2021 07:05-0400 Systolic blood pressure 130 mm[Hg] Gerardo Doan MD Work Phone: [facility] 01-17-2021 09:37-0400 Diastolic blood pressure 80 mm[Hg] Gerardo Doan MD Work Phone: [facility] 01-17-2021 09:37-0400 Heart rate 111 /min Gerardo Doan MD Work Phone: [facility] 01-17-2021 09:37-0400 Systolic blood pressure 130 mm[Hg] Gerardo Doan MD Work Phone: [facility] 01-17-2021 08:17-0400 Body height 157.5 cm Gerardo Doan MD Work Phone: [facility] 01-17-2021 08:17-0400 Body mass index (BMI) [Ratio] 28.74 kg/m2 Gerardo Doan MD Work Phone: [facility] 01-17-2021 08:17-0400 Body temperature 98.6 [degF] Gerardo Doan MD Work Phone: [facility] 01-17-2021 08:17-0400 Body weight 71.31 kg Gerardo Doan MD Work Phone: [facility] 01-17-2021 08:17-0400 Respiratory rate 18 /min Gerardo Doan MD Work Phone: [facility] 01-17-2021 08:17-0400 SaO2% (BldA) [Mass fraction] 99 % Gerardo Doan MD Work Phone: [facility] 03-15-2020 09:24-0400 BMI (Body Mass Index) 29.78 kg/m2 [facility] 03-15-2020 09:24-0400 Body Temperature 97.81 [degF] [facility] 03-15-2020 09:24-0400 Body weight 73.[address] [facility] 03-15-2020 09:24-0400 BP Diastolic 62 mm[Hg] [facility] 03-15-2020 09:24-0400 BP Systolic 128 mm[Hg] [facility] 03-15-2020 09:24-[address] [facility] 03-11-2019 14:45-0400 BMI (Body Mass Index) 28.9 kg/m2 [facility] 03-11-2019 14:45-0400 Body weight 71.67 kg [facility] 03-11-2019 14:45-0400 BP Diastolic 72 mm[Hg] [facility] 03-11-2019 14:45-0400 BP Systolic 120 mm[Hg] [facility] 03-11-2019 14:45-0400 Height 157.5 cm [facility] Encounters Encounter Date Encounter Type Care Provider Facility Start: 08-31-2024 End: 08-31-2024 Clinisync Result Encounter Eva Houston DO Work Phone: [facility] Unsolicited Start: 08-31-2024 End: 08-31-2024 Clinisync Result Encounter Eva Celso DO Work Phone: [facility] Unsolicited Start: 08-27-2024 End: 08-27-2024 Bamboo flowsheet Eva [...] Clinisync Result Encounter Jeanna KONG Work Phone: [facility] External Department Unsolicited Start: 08-23-2024 End: 08-25-2024 [...] Start: 08-06-2024 End: 08-06-2024 Clinisync Result Encounter Vea Cleso DO Work Phone: [facility] Unsolicited [...] 07-02-2024 Bamboo flowsheet Jeanna KONG Work Phone: [facility] Start: 07-02-2024 End: 07-02-2024 Periodic preventive med est patient 18-39 yrs Jeanna KONG Work Phone: [facility] Comment on above: Third trimester preg niko; 31 weeks gestation of ; Anemia during in third trimester Start: 07-02-2024 End: 07-02-2024 ambulatory JEANNA ESTES Not Available Start: 06-18-2024 End: 06-18-2024 flow sheet Jeanna KONG Work Phone: [facility] Comment on above: Third trimester preg niko; 28 weeks gestation of ; Anemia during in third trimester; Gestational diabetes mellitus (GDM), antepartum, gestational diabetes method of control unspecified; Elevated glucose tolerance test Start: 06-18-2024 End: 06-18-2024 ambulatory JEANNA ESTES Not Available Start: 06-18-2024 End: 06-18-2024 Bamboo flowsheet Jeanna KONG Work Phone: [facility] Start: 06-18-2024 End: 06-18-2024 Bamboo flowsheet Jeanna KONG Work Phone: [facility] Start: 06-18-2024 ambulatory EVA CELSO James Tam[facility] Start: 06-04-2024 End: 06-04-2024 Bamboo flowsheet Eva Celso DO Work Phone: [facility] Start: 06-04-2024 End: 06-04-2024 Bamboo flowsheet Eva Celso DO Work Phone: [facility] Start: 06-04-2024 End: 06-04-2024 flow sheet Eva Celso DO Work Phone: [facility] Comment on above: Second trimester [...] encounter procedure Eva Celso DO Work Phone: [facility] Start: 04-09-2024 [...] End: 03-27-2023 Patient encounter status Noni Patel CLINICAL INFORMATICS [employer] Work Phone: [facility] Work Phone: Start: 03-27-2023 End: 03-27-2023 Periodic preventive med est patient 18-39 yrs Noni Patel CL[employer]ICAL INFORMATICS [employer] Work Phone: [facility] SERVICE CENTER TECHNICIAN Comment on above: Encounter for gyneco logical examination without abnormal finding (Primary Dx); Screening for cervical cancer; Encounter for surveillance of contraceptive pills Start: 03-19-2022 End: 03-19-2022 Patient encounter status Lola Stokes Kofi [employer] IN[employer] Work Phone: [facility] SERVICE CENTER TECHNICIAN Start: 03-19-2022 End: 03-19-2022 Periodic preventive med est patient 18-39 yrs Lola Stokes Kofi [employer] Work Phone: [facility] SERVICE CENTER TECHNICIAN Comment on above: Encounter for gyneco logical examination without abnormal finding (Primary Dx); Initiation of oral contraception Start: 03-17-2021 End: 03-17-2021 Patient encounter status Lola Stokes Kofi [employer] Work Phone: [facility] SERVICE CENTER TECHNICIAN Start: 03-17-2021 End: 03-17-2021 Periodic preventive med est patient 18-39 yrs Lola Stokes Kofi [employer] IN[employer] Work Phone: [facility] SERVICE CENTER TECHNICIAN Comment on above: Encounter for gyneco logical examination without abnormal finding (Primary Dx); Encounter for surveillance of contraceptive pills Start: 02-17-2021 End: 02-17-2021 Subsequent hospital visit by physician Gerardo Doan MD Work Phone: [employer] [facility] Comment on above: Arrived Start: 02-01-2021 End: 02-01-2021 Office outpatient visit 25 minutes Gerardo Doan MD Work Phone: [facility] Comment on above: Murmur (Primary Dx); History of COVID-19; Abnormal EKG; Generalized anxiety disorder; Fluid level behind tympanic membrane of both ears; Leukocytosis, unspecified type Start: 01-27-2021 End: 01-27-2021 Subsequent hospital visit by physician Gerardo Doan MD Work Phone: [employer] Comment on above: Arrived Start: 01-17-2021 End: 01-17-2021 Office outpatient visit 25 minutes Gerardo Doan MD Work Phone: [facility] Comment on above: Lightheadedness (Jaycee mandi Dx); Screening for condition; BMI 28.0-28.9,adult; Irregular periods/menstrual cycles; Menorrhagia with regular cycle; Fluid level behind tympanic membrane of both ears; Iron deficiency anemia due to chronic blood loss Start: 03-15-2020 End: 03-15-2020 Periodic preventive med est patient 18-39 yrs Lola Kirby Work Phone: [facility] SERVICE CENTER TECHNICIAN Comment on above: Encounter for gyneco logical examination without abnormal finding (Primary Dx); Encounter for surveillance of contraceptive pills Start: 03-11-2019 End: 03-11-2019 Periodic preventive med est patient 18-39 yrs Lola Kirby Work Phone: [facility] SERVICE CENTER TECHNICIAN Comment on above: Encounter for gyneco logical examination without abnormal finding (Primary Dx); Encounter for surveillance of contraceptive pills Start: 11-19-2018 End: 11-19-2018 Patient encounter procedure Other Other [facility] Start: 04-25-2018 Patient encounter EMILIANO Seay [facility] Start: 02-19-2018 Patient encounter EMILIANO Seay [facility] Start: 02-13-2018 Patient encounter EMILIANO Seay [facility] Start: 02-15-2017 End: 02-16-2017 Ambulatory LOLA [facility] pital Procedures Date Procedure Procedure Detail Performing Clinician Start: 08-31-2024 ALL CBC WITH AUTO DIFF Eva Celso DO Work Phone: Start: 08-27-2024 Urnls dip stick/tabl et rgnt [...] PAP IG, RFX HPV ASCU Sh bensteffen Stokes Kofi CLINICAL INFORMATICS SPEC-COLD WATER MACHINE OPERATOR Work Phone: Start: 02-17-2021 Echo tthrc r-t [...] Detail Author Start: 04-19-2027 Tetanus vaccination TETANUS [facility] Start: 10-12-2024 End: 10-12-2024 ambulatory 10/12/2024 9:30 AM EDT Visit [facility] [address] [place] [address] Jeanna Estes PA [address] [place] [address] [facility] Start: 08-27-2024 End: 08-27-2024 Patient encounter procedure [facility] Comment on above: Arrived Start: 08-20-2024 End: 08-20-2025 US for US OB SCAN FOR GROWTH Imaging Routine size inconsistent with dates Expected: 08/20/2024 (Approximate), Expires: 08/20/2025 [facility] Work Phone: Comment on above: Expected: 08/20/2024 (Approximate), Expi res: 08/20/2025 Start: 08-20-2024 End: 08-20-2024 Patient encounter procedure 08/20/2024 9:50 AM EST Routine [facility] [address] [place] [phone] Jeanna Estes PA [address] [place] [address] [place], [place] [id number] [facility] Start: 08-12-2024 End: 08-12-2024 Patient encounter procedure [facility] Comment on above: Arrived Start: 08-06-2024 End: 08-06-2024 Patient encounter procedure 08/06/2024 3:50 PM EST Routine [facility] [address] [place] [address] Jeanna Estes, PA [address] [place] [address] [facility] Start: 08-06-2024 End: 08-06-2025 CULTURE, GROUP B STREP WITH SUSCEPTIBLITY CULTURE, GROUP B STREP WITH SUSCEPTIBLITY Lab Routine 35 weeks gestation of Third trimester Expected: 08/06/2024, Expires: 08/06/2025 [facility] Work Phone: Comment on above: Expected: 08/06/2024, Expires: Start: 07-16-2024 End: 07-16-2024 Patient encounter procedure 07/16/2024 11:00 AM EST Routine [facility] [address] [place] [phone] Jeanna Estes PA [address] [place] [address] [place], [place] [id number] Arrived [facility] Comment on above: [...] tolerance test Expected: 06/04/2024 (Approximate), Expires: 06/04/2025 [facility] Work Phone: Comment on above: Expected: 06/04/2024 (Approximate), Expi res: 06/04/2025 Start: 06-04-2024 End: 06-04-2024 Patient encounter procedure [facility] Comment on above: Arrived Start: 05-07-2024 End: 05-07-2025 CBC panel - Blood by Automated count CBC Lab Routine Diabetes mellitus screening Expected: 05/07/2024 (Approximate), Expires: 05/07/2025 [facility] Work Phone: Comment on above: Expected: 05/07/2024 (Approximate), Expi res: 05/07/2025 Start: 05-07-2024 End: 05-07-2025 Measurement of glucose 1 hour after glucose challenge for glucose tolerance test Glucose tolerance, 1 hour Lab Routine Diabetes mellitus screening Expected: 05/07/2024 (Approximate), Expires: 05/07/2025 [facility] Comment on above: Expected: 05/07/2024 (Approximate), Expi res: 05/07/2025 Start: 05-07-2024 End: 05-07-2024 Patient encounter procedure 05/07/2024 10:30 AM EDT Routine [facility] [address] [place] [address] Jeanna Estes PA [address] [place] [address] [facility] Start: 04-23-2024 End: 04-23-2024 Professional / ancillary services management 04/23/2024 8:00 AM EDT Ancillary Procedure [facility] [address] [place] [phone] [facility] Start: 04-09-2024 End: 05-09-2024 [...] AM EDT Routine [facility] [address] [place] [phone] Eva Houston, DO [address] [place] [address] Arrived [facility] Comment on above: Arrived Start: 04-01-2024 End: 04-01-2024 Patient encounter procedure 04/01/2024 8:50 AM EDT Office Visit [facility] SERVICE CENTER TECHNICIAN [address] [place] [address], [place] [phone] Noni Patel, CLINICAL INFORMATICS SPEC-COLD WATER MACHINE OPERATOR [address] [place] [address], [place] [phone] [facility] SERVICE CENTER TECHNICIAN Start: 03-27-2024 Screening for malignant neoplasm of cervix CERVICAL CANCER SCREENING DISCUSSION [facility] Start: 03-29-2023 Influenza vaccination INFLUENZA VACCINE (#1) [facility] Start: 03-21-2023 End: 03-21-2023 Patient encounter procedure 03/21/2023 Office Visit SERVICE CENTER TECHNICIAN Lola Kirby, CLINICAL INFORMATICS SPEC-COLD WATER MACHINE OPERATOR [id number] [place] [address] [facility] SERVICE CENTER TECHNICIAN Start: 03-19-2023 Screening for malignant neoplasm of cervix CERVICAL CANCER SCREENING DISCUSSION [facility] Start: 03-29-2022 Influenza vaccination INFLUENZA VACCINE (#1) [facility] Start: 03-23-2022 End: 03-23-2022 Patient encounter procedure 03/23/2022 Office Visit SERVICE CENTER TECHNICIAN Lola Kirby, CLINICAL INFORMATICS SPEC-COLD WATER MACHINE OPERATOR [id number] [place] [address] [facility] SERVICE CENTER TECHNICIAN Start: 03-17-2022 Screening for malignant neoplasm of cervix CERVICAL CANCER SCREENING DISCUSSION [facility] Start: 03-29-2021 Influenza vaccination [facility] Start: 03-17-2021 End: 03-17-2021 Patient encounter procedure 03/17/2021 Office Visit SERVICE CENTER TECHNICIAN Lola Kirby, CLINICAL INFORMATICS SPEC-COLD WATER MACHINE OPERATOR [id number] [place] [address] [facility] SERVICE CENTER TECHNICIAN Start: 03-17-2021 End: 03-17-2021 Office Visit 03/17/2021 Office Visit SERVICE CENTER TECHNICIAN Lola Kirby, CLINICAL INFORMATICS SPEC-COLD WATER MACHINE OPERATOR [id number] [place] [address] [facility] SERVICE CENTER TECHNICIAN Start: 03-15-2021 Screening for malignant neoplasm of cervix CERVICAL CANCER SCREENING DISCUSSION [facility] Start: 02-28-2021 End: 02-28-2021 Patient encounter procedure 02/28/2021 Office Visit Family Medicine Gerardo Doan MD [facility] [place] [address] [facility] Start: 02-01-2021 End: 02-01-2022 Complete blood count with white cell differential, automated CBC, EDIF, PLATELET Lab Routine Leukocytosis, unspecified type Expected: 02/01/2021, Expires: 02/01/2022 [facility] Comment on above: Expected: 02/01/2021, Expires: 2 Start: 02-01-2021 End: 02-01-2022 Exercise stress echocardiography ECHOCARDIOGRAM TREADMILL STRESS TEST Stress Echocardiography Routine Murmur History of COVID-19 Abnormal EKG Expected: 02/01/2021, Expires: 02/01/2022 [facility] Comment on above: Expected: 02/01/2021, Expires: 2 Start: 02-01-2021 End: 02-01-2021 Patient encounter procedure 02/01/2021 Office Visit Family Medicine Gerardo Doan MD [address] [place] [address] [phone] [facility] Start: 01-17-2021 End: 01-17-2022 Standard ECG ECG ECG Routine Lightheadedness Expected: 01/17/2021, Expires: 01/17/2022 [facility] Comment on above: Expected: 01/17/2021, Expires: 2 Start: 06-15-2020 End: 03-15-2021 RAYMUNDO CYTOLOGY-DIRECTOR OF FIELD SERVICE, LIQUID BASED RAYMUNDO CYTOLOGY-DIRECTOR OF FIELD SERVICE, LIQUID BASED Cytology Routine Encounter for gynecological examination without abnormal finding Expected: 06/15/2020, Expires: 03/15/2021 [facility] Comment on above: Expected: 06/15/2020, Expires: 1 Start: 03-29-2020 Influenza vaccination INFLUENZA VACCINE (#1) [facility] Start: 03-11-2020 Screening for malignant neoplasm of cervix CERVICAL CANCER SCREENING DISCUSSION [facility] Start: 03-29-2019 Influenza vaccination [facility] Start: 03-11-2019 End: 03-11-2020 RAYMUNDO CYTOLOGY-DIRECTOR OF FIELD SERVICE, LIQUID BASED RAYMUNDO CYTOLOGY-DIRECTOR OF FIELD SERVICE, LIQUID BASED Cytology Routine Encounter for gynecological examination without abnormal finding Expected: 03/11/2019, Expires: 03/11/2020 [facility] Comment on above: Expected: 03/11/2019, Expires: Start: 02-20-2019 End: 02-20-2019 Office Visit 02/20/2019 Office Visit SERVICE CENTER TECHNICIAN Lola Kirby, CLINICAL INFORMATICS SPEC-COLD WATER MACHINE OPERATOR [id number] [place] [address] [phone] [facility] SERVICE CENTER TECHNICIAN Start: 02-18-2019 Screening for malignant neoplasm of cervix PAP SMEAR DISCUSSION [facility] Start: 02-15-2018 Screening for malignant neoplasm of cervix PAP SMEAR DISCUSSION [facility] Start: 01-26-2016 Tetanus vaccination TETANUS [facility] Start: 2013 Third diphtheria, tetanus and acellular pertussis (DTaP) vaccination TDAP (ADULT) [facility] Start: 2010 Screening for Chlamydia trachomatis CHLAMYDIA SCREEN [facility] Start: 2009 HIV screening HIV SCREENING DISCUSSION [facility] Start: 11-09-2007 HIV screening HIV SCREENING DISCUSSION [facility] Start: 2006 COVID-19 VACCINE (1) COVID-19 VACCINE (1) [facility] Start: 05-10-1995 COVID-19 VACCINE (#1) COVID-19 VACCINE (#1) [facility] Start: 1994 GONORRHEA SCREEN GONORRHEA SCREEN [facility] Start: 1994 Hepatitis C antibody, confirmatory test HEPATITIS C VIRUS SCREENING [facility] Start: 1994 Hepatitis C screening HEPATITIS C VIRUS SCREENING [facility] CBC panel - Blood by Automated count CBC Lab Routine Anemia during in third trimester Ordered: 06/18/2024 [facility] Work Phone: Comment on above: Ordered: 06/18/2024 CHLAMYDIA TRACHOMATI S (GENITO/STI) CHLAMYDIA TRACHOMATIS (GENITO/STI) Lab Routine Exposure to STD Ordered: 04/09/2024 [facility] Comment on above: Ordered: 04/09/2024 Cytology Cervical or vaginal smear or scraping study Pap Smear Pathology and Cytology Routine Well woman exam with routine gynecological exam Ordered: 04/09/2024 [facility] Comment on above: Ordered: 04/09/2024 Ferritin [Mass/volum e] in Serum or Plasma Ferritin Lab Routine Anemia during in third trimester Ordered: 07/02/2024 [facility] Work Phone: Comment on above: Ordered: 07/02/2024 Neisseria gonorrhoea e DNA [Presence] in Unspecified specimen by LINO with probe detection Neisseria gonorrhea DNA probe, direct Lab Routine Exposure to STD Ordered: 04/09/2024 [facility] Comment on above: Ordered: 04/09/2024 PAP IG, RFX HPV ASCU PAP IG, RFX HPV ASCU LAB SEND OUTS Routine 03/15/2020 9:50 AM [facility] PAP IG, RFX HPV ASCU PAP IG, RFX HPV ASCU Cytology Routine 03/17/2021 1:55 PM [facility] Work Phone: PAP IG, RFX HPV ASCU PAP IG, RFX HPV ASCU Cytology Routine 03/19/2022 10:06 AM [facility] PAP IG, RFX HPV ASCU PAP IG, RFX HPV ASCU Cytology Routine 03/27/2023 9:25 AM [facility] SURESWAB(R) ADVANCED VAGINITIS PLUS, TMA SURESWAB(R) ADVANCED VAGINITIS PLUS, TMA Pathology and Cytology Routine Exposure to STD Ordered: 04/09/2024 [facility] Work Phone: Comment on above: Ordered: 04/09/2024 Immunizations Immunization Date Immunization Notes Care Provider Pedro ruiz 05-20-2019 influenza virus vacc ine, unspecified formulation Lola Kirby [facility] 05-09-2016 influenza virus vacc ine, unspecified formulation Other [facility] 04-24-2012 meningococcal polysaccharide (groups A, C, Y and W-135) diphtheria toxoid conjugate vaccine (MCV4P) Other [facility] 09-02-2007 human papilloma viru s vaccine, bivalent Other [facility] 05-02-2007 human papilloma viru s vaccine, bivalent Other [facility] 02-11-2007 human papilloma viru s vaccine, bivalent Other [facility] 02-11-2007 meningococcal polysaccharide (groups A, C, Y and W-135) diphtheria toxoid conjugate vaccine (MCV4P) Other Other [facility] 02-11-2007 varicella virus vaccine Other Other [facility] 01-25-2006 tetanus toxoid, redu cate diphtheria toxoid, and acellular pertussis vaccine, adsorbed Other Other [facility] 03-03-2001 varicella virus vaccine Other Other [facility] 11-14-1999 measles, mumps and r ubella virus vaccine Other Other [facility] 06-15-1996 diphtheria, tetanus toxoids and acellular pertussis vaccine Other Other [facility] 03-10-1996 haemophilus influenz ae type b vaccine, conjugate unspecified formulation Other Other [facility] 03-10-1996 measles, mumps and r ubella virus vaccine Other Other [facility] 08-13-1995 hepatitis B vaccine, pediatric or pediatric/adolescent dosage Other Other [facility] 04-11-1995 poliovirus vaccine, inactivated Other Other [facility] 02-01-1995 hepatitis B vaccine, pediatric or pediatric/adolescent dosage Other Other [facility] 1994 hepatitis B vaccine, pediatric or pediatric/adolescent dosage Other [facility] Payers Date Payer Category Payer [facility] Insurance [employer] [id number] 2021 Unknown [id number] 2021 Unknown [id number] 2016 Unknown 2014 Unknown [id number] 1994 Unknown [id number] [id number]. 983 1994 Unknown [id number] [id number]. 983 1994 Unknown [id number] [id number]. 983 1994 Unknown [id number] 2.16.840.1.914912.3.579.2. 1258 1994 Unknown [id number] [id number]. 1258 1994 Unknown [id number] 2.16840.1.009894.3.579.2. 1258 1994 Unknown [id number] 2.16840.1.332192.3.579.2. 1258 1994 Unknown [id number] 2.16840.1.146972.3.579.2. 1258 1994 Unknown [id number] 2.16840.1.130721.3.579.2. 1258 1994 Unknown [id number] 2.16840.1.985801.3.579.2. 1258 1994 Unknown [id number] 2.16840.1.825709.3.579.2. 1258 1994 Unknown [id number] 2.16.840.1.621338.3.579.2. 1258 1994 Unknown [id number] 2.16840.1.684812.3.579.2. 1258 1994 Unknown [id number] [id number]. 1258 1994 Unknown [id number] [id number]. 1258 1994 Unknown [id number] [id number]. 9 Social History Date Type Detail Facility Start: 03-15-2020 End: 03-27-2023 Tobacco smoking status KSIS Never smoker [facility] Start: 03-15-2020 End: 03-27-2023 Tobacco use and exposure Never used [facility] Start: 03-15-2020 End: 03-27-2023 Alcohol intake Current drinker of alcohol (finding) [facility] Start: 02-03-2020 End: 03-15-2020 History SDOH Alcohol Frequency 2 [facility] Start: 02-18-2018 Alcohol Comment consumes rarely [facility] Start: 1994 Sex Assigned At Not on file A [facility] [employer] Start: 03-11-2019 End: 03-27-2023 Alcohol intake Yes [facility] Exposure to SARS-CoV -2 (event) Not sure [facility] Start: 03-15-2020 End: 03-27-2023 History of Social function [facility] How often to you hav e a drink containing alcohol? Monthly or less [facility] Average Number of Drinks Not on file [facility] Start: 01-03-2024 Gender identity Identifies as female gender (finding) [facility] Tobacco smoking stat [facility] Tobacco smoking consumption unknown [facility] Start: 12-13-2023 [facility] Start: 1995 Sex assigned at Female [facility] Medical Equipment Procedure Code Equipment Code Equipment Origin al Text Equipment Identifier Dates 1 strip by In Vi tro route Daily Use in the morning prior to breakfast, 1 hour after each meal for a total of 4times daily. [id number] Start: 06-18-2024 End: 07-18-2024 1 each by In Vit ro route Daily Use to check FSBS four times daily [id number] Start: 06-18-2024 End: 07-18-2024 Goals Date Patient [...] Once as needed Blood Glucose Monitoring Suppl ([employer] Glucometer) w/Device kit 1 kit, Does [...] nursing note reviewed. Exam conducted with a police captain senior present. Vitals: There is no height or [...] Patient signed consent and Dr. Houston called [facility] FB and spoke with Elina who put patient on the books for IOL. Paperwork will be sent to [facility] along with Episode prior to end of day today. Patient to return to clinic for 6 week follow up post . Documented by Kelley Vogt LPN on behalf of: Eva Houston DO documented in this encounter [facility] 08-20-2024 History of Presen t illness Narrative [...] of: DILAN Mcadams documented in this encounter [facility] 08-12-2024 History of Presen t illness Narrative [...] Once as needed Blood Glucose Monitoring Suppl ([employer] Glucometer) w/Device kit 1 kit, Does not [...] nursing note reviewed. Exam conducted with a police captain senior present. Vitals: There is no height or [...] Eva Houston DO documented in this encounter [facility] 08-06-2024 History of Presen t [...] nursing note reviewed. Exam conducted with a police captain senior present. Vitals: There is no height or [...] of: DILAN Mcadams documented in this encounter [facility] 07-16-2024 History of Presen t [...] nursing note reviewed. Exam conducted with a police captain senior present. Vitals: There is no height or [...] would like to have infusions completed at [facility]. Orders Placed This Encounter Procedures POCT urinalysis dipstick manually resulted Follow Up: Patient is to return to office in 2 week for routine OB appointment. Documented by Bree Wood MA on behalf of: DILAN Mcadams documented in this encounter [facility] 07-02-2024 History of Presen t [...] Once as needed Blood Glucose Monitoring Suppl ([employer] Glucometer) w/Device kit 1 kit, Does [...] to drop, will send prior auth to [facility]. Pt given ferritin orders today Orders Placed This Encounter Procedures Ferritin Transferrin POCT urinalysis dipstick manually resulted Follow Up: Patient is to return to office in 2 week for routine OB appointment. Documented by DILAN Mcadams on behalf of: DILAN Mcadams documented in this encounter [facility] 06-18-2024 History of Presen t [...] Once as needed Blood Glucose Monitoring Suppl ([employer] Glucometer) w/Device kit 1 kit, Does [...] of: DILAN Mcadams documented in this encounter [facility] 06-04-2024 History of Presen t [...] nursing note reviewed. Exam conducted with a police captain senior present. Vitals: There is no height or [...] Eva Houston DO documented in this encounter [facility] 05-07-2024 History of Presen t [...] nursing note reviewed. Exam conducted with a police captain senior present. Vitals: There is no height or [...] of: DILAN Mcadams documented in this encounter [facility] 04-09-2024 History of Presen t [...] nursing note reviewed. Exam conducted with a police captain senior present. Vitals: There is no height or [...] Eva Houston DO documented in this encounter [facility] 03-27-2023 History of Presen t [...] Screening for cervical cancer Pap collected - [facility]-DIRECTOR OF FIELD SERVICE, LIQUID BASED 3. Encounter for surveillance of contraceptive pills Doing well tri-cycling. No contraindicating dx. I will send in new script with refills to pharmacy of patient's choice. Patient advised to contact the office with any concerns. Patient voiced understanding of all instructions. Return in about 1 year (around 03/27/2024) for Annual with Noni lew. Thank you. . documented in this encounter [facility] 03-19-2022 History of Presen t illness Narrative [...] Pap w/ HPV rfx ASCUS ordered. - [facility] CYTOLOGY-DIRECTOR OF FIELD SERVICE, LIQUID BASED 2. Initiation of oral contraception - norgestimate-ethinyl estradiol 0.25-35 MG-MCG tablet; Take 1 tablet by mouth daily. Dispense: 84 tablet; Refill: 3 Return in about 1 year (around 03/19/2023) for Annual wellness. documented in this encounter [facility] 03-17-2021 History of Presen t illness Narrative [...] Social Gatherings with Friends and Family: Attends Caodaism Services: Active Member of Clubs or Organizations: [...] Pap w/ HPV rfx ASCUS ordered. - [facility] CYTOLOGY-DIRECTOR OF FIELD SERVICE, LIQUID BASED 2. Encounter for surveillance of contraceptive pills - levonorgestrel-ethinyl estradiol (Quasense) 0.15-0.03 MG tablet; Take one tablet by mouth daily. Dispense: 91 tablet; Refill: 3 Return in about 1 year (around 03/17/2022) for Annual wellness. documented in this encounter [facility] 02-01-2021 History of Presen t illness Narrative [...] another episode of fainting while shopping at [employer] She has a hx of iron deficiency, she has not been taking iron regularly, so she restarted this for one week. She notes that she was feeling pretty good again. She felt that she was tired all of the time, had another episode while at [employer] Saturday01/15/21. She has a high resting heart [...] Social Gatherings with Friends and Family: Attends Caodaism Services: Active Member of Clubs or Organizations: [...] Assessment: Physical Exam documented in this encounter [facility] 01-17-2021 History of Presen t illness Narrative [...] another episode of fainting while shopping at [employer] She has a hx of iron deficiency, she has not been taking iron regularly, so she restarted this for one week. She notes that she was feeling pretty good again. She felt that she was tired all of the time, had another episode while at [employer] Saturday01/15/21. She has a high resting heart [...] Social Gatherings with Friends and Family: Attends Caodaism Services: Active Member of Clubs or Organizations: [...] Assessment: Physical Exam documented in this encounter [facility] 01-17-2021 Miscellaneous Notes Addended by: MAKAYLA KILGORE on: 01/17/2021 03:15 PM Modules accepted: Orders documented in this encounter [facility] Evaluation note Diagnosis Lightheadedness- Primary Dizziness and [...] blood loss (chronic) [facility] Diagnosis Lightheadedness Dizziness and giddiness [facility] Diagnosis Murmur- Primary Undiagnosed cardiac murmurs History of COVID-19 Abnormal EKG Nonspecific abnormal electrocardiogram (ECG) (EKG) Generalized anxiety disorder Fluid level behind tympanic membrane of both ears Leukocytosis, unspecified type [facility] Diagnosis Murmur Undiagnosed cardiac murmurs History of COVID-19 Abnormal EKG Nonspecific abnormal electrocardiogram (ECG) (EKG) [facility] Encounter for gynecological examination without abnormal finding- Primary Routine gynecological examination Encounter for surveillance of contraceptive pills Surveillance of previously prescribed contraceptive pill [facility] Encounter for gynecological examination without abnormal finding- Primary Routine gynecological examination Initiation of oral contraception [facility] Diagnosis Encounter for gynecological examination without abnormal finding- Primary Routine gynecological examination Screening for cervical cancer Screening for malignant neoplasm of the cervix Encounter for surveillance of contraceptive pills Surveillance of previously prescribed contraceptive pill documented [facility]* Diagnosis 22 weeks gestation of Second trimester state, incidental Diabetes mellitus screening Screening for diabetes mellitus documented in this encounter [facility]* Diagnosis Second trimester state, [...] glucose tolerance test documented in this encounter [facility]* Diagnosis Third trimester state, incidental 31 weeks gestation of Anemia during in third trimester documented in this encounter [facility]* Diagnosis Well woman exam with routine gynecological exam Routine gynecological examination Exposure to STD Second trimester state, incidental Need for maternal serum alpha-protein (MSAFP) screening Screening, , for anatomic survey Encounter for anatomic survey documented in this encounter [facility]* Diagnosis Third trimester state, incidental 32 weeks gestation of [facility] Diagnosis 35 weeks gestation of Third trimester state, incidental Anxiety, generalized (CMS/HCC) documented in this encounter [facility]* Diagnosis Third trimester state, incidental 36 weeks gestation of [facility] Diagnosis size inconsistent with dates- Primary Third trimester state, incidental 37 weeks gestation of documented in this encounter [facility]* Diagnosis Third trimester state, [...] History of Present Illness * Lola Kirby, CHAYA-COLD WATER MACHINE OPERATOR - 03/15/2020 9:30 AM EDT History of [...] file Gets together: Not on file Attends yazidism service: Not on file Active member of [...] Pap w/ HPV rfx ASCUS ordered - [facility]-DIRECTOR OF FIELD SERVICE, LIQUID BASED; Future 2. Encounter for surveillance [...] Pt [facility] and has had more menses than should [...] file Gets together: Not on file Attends yazidism service: Not on file Active member of [...] Pap w/ HPV rfx ASCUS ordered - [facility]-DIRECTOR OF FIELD SERVICE, LIQUID BASED; Future 2. Encounter for surveillance [...] Diagnoses Lightheadedness Procedures ECG Gerardo Doan MD [address] [place] [address] Status Reason Specialty Diagnoses / Procedures Referred By Contact Referred To Contact Auth Not Needed Cardiovascular Medicine Diagnoses Murmur History of COVID-19 Abnormal EKG Procedures ECHOCARDIOGRAM TREADMILL STRESS TEST PA ECHO TTHRC R-T 2D W/WO M-MODE REST&STRS CONT ECG PA DOPPLER ECHO HEART,LIMITED,F/ U PA DOPPLER COLOR FLOW VELOCITY MAP Gerardo Doan MD [address] [place] [address] [facility]ocardi[facility] [address] [place] [address] Status Reason Specialty Diagnoses / Procedures Referred By Contact Referred To Contact Closed Cardiovascular Medicine Diagnoses Murmur History of COVID-19 Abnormal EKG Procedures ECHOCARDIOGRAM TREADMILL STRESS TEST PA ECHO TTHRC R-T 2D W/WO M-MODE REST&STRS CONT ECG PA DOPPLER ECHO HEART,LIMITED,F/U PA DOPPLER COLOR FLOW VELOCITY MAP Gerardo Doan MD [address] [facility] [place] [address] [facility] [address] [facility] [place] [address] Additional Source Comments INFORMATION SOURCE (unrecogn ized section and content) DATE CREATED AUTHOR 01/22/2018 [facility] DATE CREATED AUTHOR AUTHOR'S ORGANIZ ATION 05/27/2018 [facility] DATE CREATED AUTHOR AUTHOR'S ORGANIZ ATION 07/17/2024 [facility] DATE CREATED AUTHOR AUTHOR'S ORGANIZ ATION 08/29/2024 [facility] [place] [facility] EPIC Reason for Visit (unrecogniz ed section and content) Reason Comments Annual Exam Pap 03/11/19 wnl Reason Comments Annual Exam Pap 02/18/18 wnl Want s to discuss ocp Reason Comments Rapid Heart Rate Status Reason Specialty Diagnoses / Procedures Referred By Contact Referred To Contact New Request Diagnoses Lightheadedness Procedures ECG Gerardo Doan MD [address] [facility] [place] [address] Reason Comments Dizziness 2 week f/u Status Reason Specialty Diagnoses / Procedures Referred By Contact Referred To Contact Closed Cardiovascular Medicine Diagnoses Murmur History of COVID-19 Abnormal EKG Procedures ECHOCARDIOGRAM TREADMILL STRESS TEST PA ECHO TTHRC R-T 2D W/WO M-MODE REST&STRS CONT ECG PA DOPPLER ECHO HEART,LIMITED,F/U PA DOPPLER COLOR FLOW VELOCITY MAP Gerardo Doan MD [address] [facility] [place] [address] [facility] [address] [facility] [place] [address] Reason Comments Annual Exam Pap 03/15/20 NILM [...] Care Teams (unrecognized sec tion and content) Oven Dumper Relationship Specialty Start Date End Date Gerardo Doan MD PCP - General Family Medicine 12/21/16 Oven Dumper Relationship Specialty Start Date End Date Gerardo Doan MD PCP - General Family Medicine 12/21/16 Oven Dumper Relationship Specialty Start Date End Date Gerardo [...] BE BASED ON THE PRIMARY CLINICAL RECORDS. [employer] provides no warranty or guarantee of the accuracy or completeness of information in this document.
--- NOTE | 2024-09-07 12:08 | PC.NURSE ---
Jason Godwin and 8 day old Justice arrive for follow up appointment. Parents are doing well, states baby is sleeping fairly well during the night so they are feeling more rested. Citlali has no complaint or concerns about her recovery. Was see in Dr antoine's office earlier today for incision check. Only concern for here is right knee that feels weak and judy occasionally. States discussed with anesthesia and with Kieran Choi at Dr office this AM. Encouraged to seek further care if does not return to normal by 4th week post-. VSS and assessment WNL for Citlali. Incision clean and dry, steri strips intact. Johny sign negative bilaterally with pedal pulses palpable. is pumping up to 10 times in 24 hours obtaining 2-4 oz each pump. Baby is eating -3 oz every 2.5-3 hours visa bottle. Citlali mccullough is more comfortable with pump and feed plan. Baby Justice is alert. VSS and assessment WNL. Large wet diaper noted, parents report diaper change with each feeding, usually having both wet and stool. Discussed slow paced feeding and MOMS group. Leaves ambulatory for home.
[2024-09-07 12:14] VITALS: BP 122/78; PULSE 100; TEMP 36.7; O2SAT 100
== END 2024-09-07 12:29 | disposition home or self-care (01) ==
LOC: FBCO 08:28
PROVIDERS: Visit Provider Obstetrics & Gynecology
DX: Z39.1 Encounter for care and examination of lactating mother (principal)

== ENCOUNTER 2025-04-15 13:32 | Outpatient (REF) | payer OTHER, SELFPAY ==
--- OUTSIDE RECORDS SUMMARY | 2025-04-15 13:35 | XMS_ITS | Clinical Summary ---
Author Organization [facility] Address [address] [place] [phone] Phone Care Team Providers Care Property Maintenance Technician Name Role Phone Unavailable Primary Care Provider Unavailabl e Social History Tobacco Use Types Packs/Day Years Used Date Smoking Tobacco: Never Assessed Comments Unknown Sex and Gender Information Value Date Recorded Sex Assigned at Not on file Legal Sex Female 5:26 PM EDT Gender Identity Not on file Sexual Orientation Not on file Plan of Treatment Not on file
--- OUTSIDE RECORDS SUMMARY | 2025-04-15 13:35 | XMS_ITS | Clinical Summary ---
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 1 Active Sertraline 50 MG tablet TAKE 1 TABLET DAILY FOR 3 WEEKS THEN TAKE 1.5 TABLETS DAILY FOR 7 DAYS THE WEEK OF MENSTRUAL CYCLE 3 Active norgestimate-et hinyl estradiol 0.25-35 MG-MCG tablet Take 1 tablet by mouth daily. Patient is tri-cycling. 21 tablet 17 3 Active Active Problems Problem Noted Date Diagnosed Date Iron deficiency anemia 07/09/2024 Murmur 02/03/2021 History of COVID-19 02/03/2021 Abnormal EKG 02/03/2021 Generalized anxiety disorder 02/03/2021 Fluid level behind tympanic membrane of both ear s 01/17/2021 Hallux valgus (acquired), right foot 02/13/2018 Flexor hallucis longus tendinitis 02/13/2018 Pes cavus 02/13/2018 Irritable bowel syndrome wit h both constipation and diarrhea 08/29/2017 BMI 29.0-29.9,adult 08/29/2017 Menorrhagia with regular cycle 08/29/2017 Dysmenorrhea 12/21/2016 Irregular periods/menstrual cycles 12/21/2016 Slow transit constipation 05/10/2014 Resolved Problems Problem Noted Date Diagnosed Date Resolved Date Tarsal tunnel syndrome of right side 02/13/2018 02/03/2021 Immunizations Immunization Administration Dates Next Due DTaP 06/15/1996 HIB, Unspecified Formulation 03/10/1996 HPV Vaccine, Bivalent 09/02/2007,05/02/2007,01/26 Hepatitis B Vaccine PEDS/ADO LES (ENGERIX-B / RECOMBIVAX HB 08/13/1995,02/01/1995,1994 INACTIVATED POLIOVIRUS (IPV) 04/11/1995 MMR Vaccine 11/14/1999,03/10/1996 Meningococcal Vaccine ACY&W (Polysaccharide) MENACTRA 04/24/2012,02/11/2007 Tdap Vaccine 01/25/2006 Varicella Vaccine 02/11/2007,03/03/2001 Family History Medical History Relation Name Comments Other - Specify Father diverticulit is Hypertension Maternal Grandmother Other - Specify Mother Allergies Diabetes Paternal Grandfather type 1 Kidney Disease Paternal Grandfather Polyc ystic Lung Cancer Paternal Grandfather Other - Specify Paternal Grandfather Beatris l failure Cancer- Other Paternal Grandmother Leukem ia Colitis Paternal Grandmother Ulcerat jorge Lung Cancer Paternal Grandmother Stomach Cancer Paternal Grandmother Asthma Sister Relation Name Status Comments Father Alive Maternal Grandmother Mother Alive Paternal Grandfather Paternal Grandmother Sister Social History Tobacco Use Types Packs/Day Years Used Date Smoking Tobacco: Never Smokeless Tobacco: Never Tobacco Cessation:Counseling Given: Not Answered Alcohol Use Standard Drinks/Week Comments Yes 0 (1 standard drink = 0.6 oz pur e alcohol) consumes rarely AUDIT-C Answer Date Recorded Q1: How often do you have a drink containing alc ohol? Monthly or less 03/15/2020 Average Number of Drinks Not on file 020 Frequency of Binge Drinking Not on file 02/26 Comments No Sex and Gender Information Value Date Recorded Sex Assigned at Not on file Legal Sex Female 5:27 PM EST Gender Identity Female Sexual Orientation Not on file Last Filed Vital Signs Vital Sign Reading Time Taken Comments Blood Pressure 110/64 03/27/2023 9:16 AM EDT Pulse 127 02/01/2021 7:05 AM EDT Temperature 36.9 C (98.4 F) 02/01/2021 7:05 AM EDT Respiratory Rate 18 02/01/2021 7:05 AM EDT Oxygen Saturation 99% 02/01/2021 7:05 AM EDT Inhaled Oxygen Concentration - - Weight 72.6 kg (160 lb) 03/27/2023 9:16 AM EDT Height 157.5 cm (5' 2 ) 03/27/2023 9:16 AM EDT Body Mass Index 29.26 03/27/2023 9:16 AM EDT Plan of Treatment Health Maintenance Due Date Last Done Comments CERVICAL CANCER SCREENING DISCUSSION 03/27/2024 03/27/2023, 03/27/2023, 03/19/2022, Additional history exists COVID-19 VACCINE ( season) 2025 INFLUENZA VACCINE (#1) 2025 9, 05/14/2018, 05/09/2016, Additional history exists TETANUS 04/19/2027 04/19/2017, 12/29, 06/15/1996 HEP B VACCINE Completed 08/13/1995, 01/1995, 1994 HPV VACCINE ADOL Discontinued 09/02/2007, 11/2006, 02/11/2007 HPV VACCINE Completed 09/02/2007, 11/2006, 02/11/2007 TDAP (ADULT) Completed 04/19/2017, 12/29, 06/15/1996 HEPATITIS C VIRUS SCREENING Completed 02/06/2024 HIV SCREENING DISCUSSION Completed 02/06/2024 PNEUMOCOCCAL VACCINE SERIES Aged Out No longer eligible based on patient's age to complete this topic Procedures Procedure Name Priority Date/Time Associated Diagnosis Comments HEPATITIS C ANTIBODY Routine 02/06/2024 4:43 PM EDT RAPID HIV-1/HIV-2 AB WITH P24 ANTIGEN Routine 02/06/2024 4:37 PM EDT PAP IG, RFX HPV ASCU Routine 03/27/2023 9:25 AM EDT from Last 3 Months or Most Recently Relevant to Health Maintenance Results * HEPATITIS C ANTIBODY (02/06/2024 4:43 PM EDT) HEP C AB, Donor NEGATIVE NEGATIVE [facility] - [address] - [place] 02/06/2024 4:43 PM EDT 02/06/2024 4:44 PM EDT us Daniel R Celso DO IMMUNOLOGY ORDERABLES Final Res ult [facility] - [address] [facility] [address] [place] [address] * RAPID HIV-1/HIV-2 AB WITH P24 ANTIGEN (02/06/2024 4:37 PM EDT) HIV-1/HIV-2 ANTIBODY NONREACTIVE NONREACTIVE [address] Comment:Testing performed at [place], [place] [address] 02/06/2024 4:37 PM EDT 02/06/2024 4:38 PM EDT us Daniel R Celso DO IMMUNOLOGY ORDERABLES Final Res ult Performing Organization Address [facility] Co de Phone Number [address] [place] [address] * PAP IG, RFX HPV ASCU (03/27/2023 9:25 AM EDT) DIAGNOSIS Comment [facility] Comment:NEGATIVE FOR INTRAEP ITHELIAL LESION OR MALIGNANCY. Specimen Adequacy: Comment Divya MAYA Comment: (NOTE) Satisfactory for evaluation. Endocervical and/or squamous metaplastic cells (endocervical component) are present. Performed by: Comment MARLENA MAYA Comment:Olivia Carrero, Cyto technologist (ASCP) . . [facility] NOTE Comment [facility] Comment: (NOTE) The Pap smear is a screening test designed to aid in the detection of premalignant and malignant conditions of the uterine cervix. It is not a diagnostic procedure and should not be used as the sole means of detecting cervical cancer. Both false-positive and false-negative reports do occur. . Comment [facility] Comment: (NOTE) The HPV DNA reflex criteria were not met with this specimen result therefore, no HPV testing was performed. No. of containers..01 ThinPrep Vial METHOD TYPE Comment [facility] Comment: (NOTE) This liquid based ThinPrep(R) pap test was screened with the use of an image guided system. PERFORMED AT [facility] 03/27/2023 9:25 AM EDT 03/27/2023 5:50 PM EDT Noni Patel CAN CLOSING MACHINE TENDER-TILE LAYER CYTOLOGY Final Result [facility] [address] [place] [address] from Last 3 Months or Most Recently Relevant to Health Maintenance Insurance MM
--- OUTSIDE RECORDS SUMMARY | 2025-04-15 13:35 | XMS_ITS | Encounter Summary ---
Author Organization [facility] Address [address] [place] [address] Care Team Providers Care Soda Flaker Name Role Phone Unavailable Primary Care Provider Unavailabl e Reason for Referral * Consultation (Routine) - Closed Specialty Diagnoses / Procedures Referred By Contmolly t Referred To Contact Diagnoses Iron deficiency anemia, unspecified iron deficiency anemia type Jeanna Choi PA [address] [place] [address] [place] [address] Phone: tel: fax: Referral ID Status Reason Start Date Expiration Date Visits Re quested Visits Authorized [id number] Closed 07/09/2024 08/03/2025 1 1 Encounter Details Date Type Department Care Team (Late st Contact Info) Description 07/09/2024 Orders Only [facility] [address] [place] [id number] Jeanna Carrion RN Iron deficiency anemia, unspecified iron deficiency anemia type (Primary Dx) Social History Tobacco Use Types Packs/Day Years Used Date Smoking Tobacco: Never Smokeless Tobacco: Never Alcohol Use Standard Drinks/Week Comments Yes 0 [...] Identity Female Sexual Orientation Not on file documented as of this encounter Plan of Treatment Scheduled Referrals Name Type Priority Associated Diagnoses Orde r Schedule AMB REFERRAL TO INFUSION CLINIC Outpatient Referral Routine Iron deficiency anemia, unspecified iron deficiency anemia type Ordered: 07/09/2024 documented as of this encounter Visit Diagnoses Diagnosis Iron deficiency anemia, unspecified iron deficiency anemia type- Primary documented in this encounter
--- OUTSIDE RECORDS SUMMARY | 2025-04-15 13:47 | XMS_ITS | CCD ---
Author Organization [facility] Care Team Providers Care [employer] Name Role Phone MARINA KIRBY Unavailable Unavailable MARINA KIRBY Unavailable Unavailable UNKNOWN, PROVIDER Unavailable Unavailable SANDEE DOAN Unavailable Unavail able SALCIDO, EMILIANO S Unavailable Unavailable SELF, SELF Unavailable Unavailable SALCIDO, EMILIANO S Unavailable Unavailable SALCIDO, EMILIANO S Unavailable Unavailable SALCIDO, EMILIANO S Unavailable Unavailable SALCIDO, EMILIANO S Unavailable Unavailable SALCIDO, EMILIANO S Unavailable Unavailable SALCIDO, EMILIANO S Unavailable Unavailable Kimmy Doanah Primary Care Provider [phone] Jessenia Sandee Primary Care Provider [phone] Jessenia Export Primary Care Provider [phone] Jessenia MIRANDA Export Primary Care Provider Jessenia MIRADNA Export Primary Care Provider [phone] Unavailable Primary Care Provider Unavailabl e CELSO, DANIEL Referring Unavailable KIMMY DOANAH Primary Care Unavailable CELSO, DANIEL Attending Unavailable STEPH, JEANNA Referring Unavailable CELSO, DANIEL Attending Unavailable CELSO, DANIEL Attending Unavailable CELSO, DANIEL Referring Unavailable Steph PA, Jeanna Unavailable CELSO, DANIEL Attending Unavailable STEPH, JEANNA Attending Unavailable CELSO, DANIEL Attending Unavailable STEPH, JEANNA Attending Unavailable CELSO, DANIEL Attending Unavailable STEPH, JEANNA Attending Unavailable STEPH, JEANNA Attending Unavailable STEPH, JEANNA Attending Unavailable STEPH, JEANNA Attending Unavailable CELSO, DANIEL Attending Unavailable STEPH, JEANNA Attending Unavailable CELSO, DANIEL Attending Unavailable STEPH, JEANNA Attending Unavailable STEPH, JEANNA Attending Unavailable DILEEPERMARCI A Attending Unavailable Dileeper [employer] ATTENDANT, Marci A Unavailable [phone] Medications Current Medications Medication Drug Class(es) Dates [...] (Zoloft) 50 MG tablet Indications: Anxiety, generalized Take 1 tablet (50 mg) by mouth [...] secondary to blood loss (chronic)] Chronic Diabetes or abnormal glucose tolerance complicating ; [...] [Irregular periods] Onset: 12-21-2016 12-21-2016 Chronic Other aftercare (2 sources) Surgical follow-up; Translations: [Encounter for follow-up examination after completed treatment for conditions other than malignant neoplasm] 09-07-2024 Episodic Other and unspecified benign neoplasm (2 sources) Melanocytic nevus of trunk; Translations: [Melanocytic nevi of trunk] 11-09-2024 Episodic Other complications of (2 sources) size does [...] Translations: [BMI 27.0-27.9,adult] Onset: 08-29-2017 08-29-2017 Chronic Residual codes; unclassified (2 sources) Gestation period, 22 weeks; Translations: [22 weeks gestation of ] 05-07-2024 Episodic Residual codes; unclassified (2 sources) Gestation period, 28 weeks; Translations: [28 weeks gestation of ] 06-18-2024 Episodic Residual codes; unclassified (2 sources) Gestation period, 31 weeks; Translations: [31 weeks gestation of ] 07-02-2024 Episodic Residual codes; unclassified (2 sources) Gestation period, 32 weeks; Translations: [32 weeks gestation of ] 07-16-2024 Episodic Residual codes; unclassified (2 sources) Gestation [...] cavus, unspecified foot] Onset: 02-13-2018 02-13-2018 Episodic Diabetes mellitus without complication (20 sources) Abnormal glucose tolerance test; Translations: [Other abnormal glucose] Onset: 06-04-2024 06-04-2024 Episodic Heart valve disorders (7 sources) Heart murmur; Translations: [Cardiac murmur, unspecified] Onset: 02-03-2021 Episodic Other complications of (20 sources) Anemia of ; Translations: [Anemia complicating , unspecified trimester] Onset: 06-04-2024 Resolved: 08-30-2024 06-04-2024 Chronic Other connective tissue disease (2 sources) Pain [...] (BMI) 29.0-29.9, adult] Onset: 08-29-2017 02-03-2021 Episodic Other and delivery including normal (20 sources) Second trimester ; Translations: [Encounter for supervision of normal , unspecified, second trimester] Onset: 06-04-2024 Resolved: 08-30-2024 05-07-2024 Episodic Otitis media and related conditions (9 sources) Fluid level behind tympanic membrane; Translations: [Unspecified nonsuppurative otitis media, bilateral] Onset: 01-17-2021 Episodic Residual codes; unclassified (20 sources) Gestation period, 26 weeks; Translations: [26 weeks gestation of ] Onset: 06-04-2024 Resolved: 08-30-2024 06-04-2024 Episodic Residual codes; unclassified (20 sources) Gestation period, 35 weeks; Translations: [35 weeks gestation of ] Onset: 08-06-2024 Resolved: 08-30-2024 08-06-2024 Episodic Unclassified (1 source) Encounter for screening for malignant neoplasm of cervix; Translations: [Encounter for screening for malignant neoplasm of cervix] Onset: 02-15-2017 Results Test Name Value Interpretation Reference Range Facil ity ALL CBC WITH AUTO DIFFon BASOPHILS ABSOLUTE AUTO 0 [facility] Basophils/100 WBC (Bld) 0.2 % 0.2 - 2.0 % [facility] Eosinophils/100 WBC (Bld) 0.2 % Low 0.9 - 7.0 % [facility] Erythrocyte distribution width (RBC) [Ratio] 15.7 % High 11.0 - 15.0 % [facility] Hematocrit (Bld) [Volume fraction] 26.5 % Low 36.0 - 48.0 % [facility] Hemoglobin (Bld) [Mass/Vol] 8.8 g/dL Low 12.0 - 16.0 g/dL [facility] IMMATURE GRANULOCYTES ABS AUTO 0.13 High [facility] Immature granulocytes/100 WBC (Bld) 0.7 % High 0.0 - 0.5 % [facility] Interpretation and review of laboratory results Abnormal [facility] LYMPHOCYTES ABSOLUTE AUTO 2 [facility] Lymphocytes/100 WBC (Bld) 10.2 % Low 20.5 - 60.0 % [facility] MCH (RBC) [Entitic mass] 31.5 pg 26.7 - 34.0 pg [facility] MCHC (RBC) [Mass/Vol] 33.2 g/dL 29.9 - 35.2 g/dL [facility] MCV (RBC) [Entitic vol] 95 fL 81.0 - 99.0 fL [facility] MONOCYTES ABSOLUTE AUTO 1.3 High [facility] Monocytes/100 WBC (Bld) 6.6 % 1.7 - 12.0 % [facility] NEUTROPHILS ABSOLUTE AUTO 15.8 High [facility] Neutrophils/100 WBC (Bld) 82.1 % High 43.0 - 75.0 % [facility] Platelet mean volume (Bld) [Entitic vol] 9.9 fL 9.5 - 13.5 fL [facility] TBH EO # 0 [facility] TBH PLT 244 [facility] RBC 2.79 Low [facility] WBC 19.2 High [facility] Urinalysis macro (dipstick) panel (U)on 08-27-2024 Bilirubin, UA Negative Negative - 4(70) +++ mg/dL [facility] Blood, UA Negative Negative - 50 Milo/mcL [facility] Clarity, UA Clear [facility] Color, UA Yellow [facility] Glucose, UA Negative Negative - 1999(110) ++++ mg/dL [facility] Interpretation and review of laboratory results Abnormal [facility] Ketones, UA Positive Negative - 160(16) ++++ mg/dL [facility] Comment on above: 15 Leukocytes, UA Trace Negative - 500+++ Sonu/mcL [facility] Nitrite, UA Negative Negative - Positive [facility] pH, UA 7 5 - 9 [facility] Protein, UA Negative Negative - 1999(20) ++++ mg/dL [facility] Spec Grav, UA 1.02 1 - 1.03 [facility] Urobilinogen, UA 0.2 0.2 - 12 mg/dL [facility] US OB GROWTHon 08-23-[address] [address] Ultrasound Report Signed Patient: CITLALI HAILE MR#: [id number] : 1995 Acct:[id number] Age/Sex: 28 / F ADM Date: 08/22/24 Loc: US Attending Dr: Jeanna Estes Ordering Physician: Jeanna Estes Date of Service: 08/22/24 Procedure(s): US OB growth Accession Number(s): [id number] cc: Jeanna Estes; Physician,Non-Staff Mihir [address] [address] Patient Name: CITLALI HAILE MRN: [facility]:[id number] date: 1995 Sex: F Assigned Patient Location: Current Patient Location: Accession/Order Number: [id number] Exam Date: 08/22/2024 09:00 Report Date: 08/23/2024 [...] 3rd percentile. 3. Polyhydramnios. Electronically authenticated by: DANIELLE LANDERS Date: 08/23/2024 00:13 Dictated By: Danielle Landers M.D. Signed By: 08/23/2414 DD/ TD/TT: Bioprocess Engineer: [facility] Radiology, Radiologist, - 08/25/[address] [address] Ultrasound Report Signed Patient: CITLALI HAILE MR#: [id number] : 1995 Acct:[id number] Age/Sex: 28 / F ADM Date: 08/22/24 Loc: US Attending Dr: Jeanna Estes Ordering Physician: Jeanna Estes Date of Service: 08/22/24 Procedure(s): US OB growth Accession Number(s): [id number] cc: Jeanna Estes; Physician,Non-Staff M.DViral The [address] [address] Patient Name: CITLALI HAILE MRN: [id number] date: 1995 Sex: F Assigned Patient Location: US Current Patient Location: Accession/Order Number: [id number] Exam Date: 08/22/2024 09:00 Report Date: 08/23/2024 [...] 3rd percentile. 3. Polyhydramnios. Electronically authenticated by: DANIELLE LANDERS Date: 08/23/2024 00:13 Dictated By: Danielle Landers M.D. Signed By: 08/23/2414 DD/ TD/TT: Bioprocess Engineer: [facility] Radiology Study observation (narrative) [facility] US OB GROWTHOrdered By: Valerie [email or web address] Radiology on 08-23-2024 [facility] Work Phone: Urinalysis macro (dipstick) panel (U)on 08-20-2024 Bilirubin, UA Negative Negative - 4(70) +++ mg/dL [facility] Blood, UA Negative Negative - 50 Milo/mcL [facility] Clarity, UA Clear [facility] Color, UA Yellow [facility] Glucose, UA Negative Negative - 1999(110) ++++ mg/dL [facility] Interpretation and review of laboratory results Abnormal [facility] Ketones, UA Positive Negative - 160(16) ++++ mg/dL [facility] Leukocytes, UA Negative Negative - 500+++ Sonu/mcL [facility] Nitrite, UA Trace Negative - Positive [facility] pH, UA 7 5 - 9 [facility] Protein, UA Negative Negative - 1999(20) ++++ mg/dL [facility] Spec Grav, UA 1.015 1 - 1.03 [facility] Urobilinogen, UA 0.2 0.2 - 12 mg/dL [facility] Urinalysis macro (dipstick) panel (U)on 08-12-2024 Bilirubin, UA Negative Negative - 4(70) +++ mg/dL [facility] Blood, UA Negative Negative - 50 Milo/mcL [facility] Clarity, UA Clear [facility] Color, UA Yellow [facility] Glucose, UA Negative Negative - 1999(110) ++++ mg/dL [facility] Interpretation and review of laboratory results Normal [facility] Ketones, UA Negative Negative - 160(16) ++++ mg/dL [facility] Leukocytes, UA Negative Negative - 500+++ Sonu/mcL [facility] Nitrite, UA Negative Negative - Positive [facility] pH, UA 7 5 - 9 [facility] Protein, UA Negative Negative - 1999(20) ++++ mg/dL [facility] Spec Grav, UA 1.01 1 - 1.03 [facility] Urobilinogen, UA 0.2 0.2 - 12 mg/dL [facility] ALL CBC WITH AUTO DIFFon BASOPHILS ABSOLUTE AUTO 0 [facility] Basophils/100 WBC (Bld) 0.2 % 0.2 - 2.0 % [facility] Eosinophils/100 WBC (Bld) 0.4 % Low 0.9 - 7.0 % [facility] Erythrocyte distribution width (RBC) [Ratio] 15.6 % High 11.0 - 15.0 % [facility] Hematocrit (Bld) [Volume fraction] 33.4 % Low 36.0 - 48.0 % [facility] Hemoglobin (Bld) [Mass/Vol] 10.7 g/dL Low 12.0 - 16.0 g/dL [facility] IMMATURE GRANULOCYTES ABS AUTO 0.31 High [facility] Immature granulocytes/100 WBC (Bld) 2 % High 0.0 - 0.5 % [facility] Interpretation and review of laboratory results Abnormal [facility] LYMPHOCYTES ABSOLUTE AUTO 2.2 [facility] Lymphocytes/100 WBC (Bld) 13.8 % Low 20.5 - 60.0 % [facility] MCH (RBC) [Entitic mass] 30.4 pg 26.7 - 34.0 pg [facility] MCHC (RBC) [Mass/Vol] 32 g/dL 29.9 - 35.2 g/dL [facility] MCV (RBC) [Entitic vol] 94.9 fL 81.0 - 99.0 fL [facility] MONOCYTES ABSOLUTE AUTO 1.3 High [facility] Monocytes/100 WBC (Bld) 8 % 1.7 - 12.0 % [facility] NEUTROPHILS ABSOLUTE AUTO 11.9 High [facility] Neutrophils/100 WBC (Bld) 75.6 % High 43.0 - 75.0 % [facility] Platelet mean volume (Bld) [Entitic vol] 10.2 fL 9.5 - 13.5 fL [facility] TBH EO # 0.1 [facility] TBH PLT 346 [facility] TB RBC 3.52 Low [facility] TB WBC 15.7 High [facility] Urinalysis macro (dipstick) panel (U)on 08-06-2024 Bilirubin, UA Negative Negative - 4(70) +++ mg/dL [facility] Blood, UA Negative Negative - 50 Milo/mcL [facility] Clarity, UA Clear [facility] Color, UA Yellow [facility] Glucose, UA Negative Negative - 1999(110) ++++ mg/dL [facility] Interpretation and review of laboratory results Abnormal [facility] Ketones, UA Positive Negative - 160(16) ++++ mg/dL [facility] Comment on above: 40 Leukocytes, UA Moderate Negative - 500+++ Sonu/mcL [facility] Nitrite, UA Negative Negative - Positive [facility] pH, UA 7 5 - 9 [facility] Protein, UA Negative Negative - 1999(20) ++++ mg/dL [facility] Spec Grav, UA 1.015 1 - 1.03 [facility] Urobilinogen, UA 0.2 0.2 - 12 mg/dL [facility] Urinalysis macro (dipstick) panel (U)on 07-16-2024 Bilirubin, UA Negative Negative - 4(70) +++ mg/dL [facility] Blood, UA Negative Negative - 50 Milo/mcL [facility] Clarity, UA Clear [facility] Color, UA Yellow [facility] Glucose, UA Negative Negative - 1999(110) ++++ mg/dL [facility] Interpretation and review of laboratory results Abnormal [facility] Ketones, UA Positive Negative - 160(16) ++++ mg/dL [facility] Comment on above: trace Leukocytes, UA Positive Negative - 500+++ Sonu/mcL [facility] Comment on above: small Nitrite, UA Negative Negative - Positive [facility] pH, UA 6 5 - 9 [facility] Protein, UA Negative Negative - 1999(20) ++++ mg/dL [facility] Spec Grav, UA 1.02 1 - 1.03 [facility] Urobilinogen, UA 0.2 0.2 - 12 mg/dL [facility] Urinalysis macro (dipstick) panel (U)on 07-02-2024 Bilirubin, UA Negative Negative - 4(70) +++ mg/dL [facility] Blood, UA Negative Negative - 50 Milo/mcL [facility] Clarity, UA Clear [facility] Color, UA Yellow [facility] Glucose, UA Negative Negative - 1999(110) ++++ mg/dL [facility] Interpretation and review of laboratory results Abnormal [facility] Ketones, UA Positive Negative - 160(16) ++++ mg/dL [facility] Leukocytes, UA Many Negative - 500+++ Sonu/mcL [facility] Nitrite, UA Negative Negative - Positive [facility] pH, UA 7 5 - 9 [facility] Protein, UA Negative Negative - 2000(20) ++++ mg/dL [facility] Spec Grav, UA 1.02 1 - 1.03 [facility] Urobilinogen, UA 1.0 0.2 - 12 mg/dL [facility] FAX REQUESTon 06-18-2024 FAX TO [phone] Normal [facility] Comment on above: Result Comment: Test ing performed at [place] [address] Performed By: #### F X, GTTP3 #### [place] [address] GTT 3HR GESTATIONALon 2023 Glucose [Mass/Vol] 57 mg/dL Low 65-140 [facility] Comment on above: Result Comment: Test ing performed at [place] [address] Performed By: #### F X, GTTP3 #### [place] [address] Glucose [Mass/Vol] 140 mg/dL Normal 65-165 [facility] Comment on above: Result Comment: Test ing performed at [place] [address] Performed By: #### F X, GTTP3 #### [place] [address] Glucose [Mass/Vol] 210 mg/dL High 65-190 [facility] Comment on above: Result Comment: Test ing performed at [place] [address] Performed By: #### F X, GTTP3 #### [place] [address] Glucose [Mass/Vol] 96 mg/dL Normal <100 [facility] Comment on above: Result Comment: Test ing performed at [place] [address] Performed By: #### F X, GTTP3 #### [place] [address] Urinalysis macro (dipstick) panel (U)on 06-04-2024 Bilirubin, UA Negative Negative - 4(70) +++ mg/dL [facility] Blood, UA Positive Negative - 50 Milo/mcL [facility] Comment on above: trace Clarity, UA Clear [facility] Color, UA Yellow [facility] Glucose, UA Negative Negative - 1999(110) ++++ mg/dL [facility] Interpretation and review of laboratory results Abnormal [facility] Ketones, UA Negative Negative - 160(16) ++++ mg/dL [facility] Leukocytes, UA Positive Negative - 500+++ Sonu/mcL [facility] Comment on above: small Nitrite, UA Negative Negative - Positive [facility] pH, UA 7 5 - 9 [facility] Protein, UA Negative Negative - 2000(20) ++++ mg/dL [facility] Spec Grav, UA 1.015 1 - 1.03 [facility] Urobilinogen, UA 0.2 0.2 - 12 mg/dL [facility] CBCon 05-28-2024 ABSOLUTE BAS 0.0 10*3/uL Normal 0.0-0.2 [facility] Comment on above: Result Comment: Test ing performed at [place] [address] Performed By: #### A CBC, FX, GL1 #### [place] [address] ABSOLUTE EOS 0.0 10*3/uL Normal 0.0-0.7 [facility] Comment on above: Performed By: #### A CBC, FX, GL1 #### [place] [address] ABSOLUTE NEUTROPHIL COUNT 11.0 10*3/uL High 1.4-6.5 [facility] Comment on above: Performed By: #### A CBC, FX, GL1 #### [place] [address] Basophils/100 WBC (Bld) 0.1 % Normal 0.0-2.0 [facility] Comment on above: Performed By: #### A CBC, FX, GL1 #### [place] [address] DTYPE AUTO DIFF Normal [facility] Comment on above: Performed By: #### A CBC, FX, GL1 #### Testing performed at [address] [address] Eosinophils/100 WBC (Bld) 0.2 % Normal 0.0-11.0 [facility] Comment on above: Performed By: #### A CBC, FX, GL1 #### Testing performed at [place] [id number] Lymphocytes (Bld) [#/Vol] 1.4 10*3/uL Normal 1.2-3.4 [facility] Comment on above: Performed By: #### A CBC, FX, GL1 #### [place] [address] Lymphocytes/100 WBC (Bld) 10.8 % Low 20.0-55.0 [facility] Comment on above: Performed By: #### A CBC, FX, GL1 #### [place] [address] Monocytes (Bld) [#/Vol] 0.6 10*3/uL Normal 0.0-0.7 [facility] Comment on above: Performed By: #### A CBC, FX, GL1 #### Testing performed at [address] [address] Monocytes/100 WBC (Bld) 4.2 % Normal 0.0-10.0 [facility] Comment on above: Performed By: #### A CBC, FX, GL1 #### Testing performed at [address] [address] Neutrophils/100 WBC (Bld) 84.7 % High 37.0-75.0 [facility] Comment on above: Performed By: #### A CBC, FX, GL1 #### Testing performed at [place] [id number] Erythrocyte distribution width (RBC) [Ratio] 13.3 % Normal 11.5-14.5 [facility] Comment on above: Performed By: #### A CBC, FX, GL1 #### [place] [address] Hematocrit (Bld) [Volume fraction] 29.4 % Low 36.0-48.0 [facility] Comment on above: Performed By: #### A CBC, FX, GL1 #### [place] [address] Hemoglobin (Bld) [Mass/Vol] 10.0 g/dL Low 12.0-16.0 [facility] Comment on above: Performed By: #### A CBC, FX, GL1 #### [place] [address] MCH (RBC) [Entitic mass] 31.4 pg Normal 26.0-35.0 [facility] Comment on above: Performed By: #### A CBC, FX, GL1 #### [place] [address] MCHC (RBC) [Mass/Vol] 34.1 g/dL Normal 27.0-37.0 [facility] Comment on above: Performed By: #### A CBC, FX, GL1 #### [place] [address] MCV (RBC) [Entitic vol] 92.0 fL Normal 80.0-100.0 [facility] Comment on above: Performed By: #### A CBC, FX, GL1 #### [place] [address] Platelet mean volume (Bld) [Entitic vol] 7.2 fL Low 7.4-11.0 [facility] Comment on above: Performed By: #### A CBC, FX, GL1 #### [place] [address] Platelets (Bld) [#/Vol] 403 10*3/uL High 130-400 [facility] Comment on above: Performed By: #### A CBC, FX, GL1 #### Testing performed at [address] [place] [address] RBC (Bld) [#/Vol] 3.20 10*6/uL Low 4.0-5.4 [facility] Comment on above: Performed By: #### A CBC, FX, GL1 #### [place] [address] WBC (Bld) [#/Vol] 13.0 10*3/uL High 3.6-11.0 [facility] Comment on above: Performed By: #### A CBC, FX, GL1 #### [place] [address] FAX REQUESTon 05-28-2024 FAX TO [phone] Normal [facility] Comment on above: Result Comment: CONCHITA ECTED ON 05/28 AT 1651: PREVIOUSLY REPORTED [phone] Performed By: #### A CBC, FX, GL1 #### [place] [address] GLUCOSE 1 HR PCon 05-28-2024 Glucose [Mass/Vol] 146 mg/dL Normal 65-200 [facility] Comment on above: Result Comment: Test ing performed at [place] [address] Performed By: #### A CBC, FX, GL1 #### [place] [address] Urinalysis macro (dipstick) panel (U)on 05-07-2024 Bilirubin, UA Negative Negative - 4(70) +++ mg/dL [facility] Blood, UA Negative Negative - 50 Milo/mcL [facility] Clarity, UA Clear [facility] Color, UA Yellow [facility] Glucose, UA Negative Negative - 2000(110) ++++ mg/dL [facility] Interpretation and review of laboratory results Abnormal [facility] Ketones, UA Negative Negative - 160(16) ++++ mg/dL [facility] Leukocytes, UA Trace Negative - 500+++ Sonu/mcL [facility] Nitrite, UA Negative Negative - Positive [facility] pH, UA 7.0 5 - 9 [facility] Protein, UA Negative Negative - 2000(20) ++++ mg/dL [facility] Spec Grav, UA 1.010 1 - 1.03 [facility] Urobilinogen, UA 0.2 0.2 - 12 mg/dL [facility] IGP,APTIMA HPV,AGE GDLNon AGE GDLN ACOG TESTING Note . [facility] Comment on above: TESTS RESULT FLAG [facility] REF RANGE LAB Clinician Provided Cytology Information Source.............Cervix No. of containers..01 ThinPrep Vial Age Algo ACOG Viktoria... FLAG LEGEND: L-Low Normal,H-High Normal,LL-Alert Low,HH-Alert High <-Panic Low,>-Panic High,A-Abnormal,AA-Critical Abnormal Performed at: 01 =[facility] [address] Kayleen Nielson MD, IGP, RFX APTIMA HPV ASCU Note . [facility] Comment on above: TESTS RESULT FLAG UN ITS REF RANGE LAB DIAGNOSIS: 02 NEGATIVE FOR INTRAEPITHELIAL LESION OR MALIGNANCY. Specimen adequacy: 02 Satisfactory for evaluation. No endocervical component is identified. Performed by: 02 Henok Adames, Slubber Frame Changer (ASCP) . 02 Note: Note 02 The [...] <-Panic Low,>-Panic High,A-Abnormal,AA-Critical Abnormal Performed at: [address] [address] Kayleen Nielson MD, Performed at: = - [facility] [address] [id number] First Responder: Kayleen Nielson MD, Phone: [phone] Performed at: [facility] [address] [id number] First Responder: Kayleen Nielson MD, Phone: [phone] [facility] URETHRITIS/DISCHARGE PLUS VA GINITIS (HTRX)on 04-10-2024 ATOPOBIUM VAGINAE 0.000 [facility] ATOPOBIUM VAGINAE Not detected [facility] BVAB 2,3 (BACTERIAL VAGINOSIS ASSOCIATED BACTERIA 2, 3); MOBILUNCUS SPP 0.000 [facility] BVAB 2,3 (BACTERIAL VAGINOSIS ASSOCIATED BACTERIA 2, 3); MOBILUNCUS SPP Not detected [facility] OMER ALBICANS, PARAPSILOSIS, TROPICALIS 0.000 [facility] OMER ALBICANS, PARAPSILOSIS, TROPICALIS Not detected [facility] OMER GLABRATA 0.000 [facility] OMER GLABRATA Not detected [facility] OMER KRUSEI 0.000 [facility] OMER KRUSEI Not detected [facility] CHLAMYDIA TRACHOMATIS 0.000 [facility] CHLAMYDIA TRACHOMATIS Not detected [facility] GARDNERELLA VAGINALIS 0.000 [facility] GARDNERELLA VAGINALIS Not detected [facility] MEGASPHAERA (TYPES 1, 2) 0.000 [facility] MEGASPHAERA (TYPES 1, 2) Not detected [facility] MYCOPLASMA GENITALIUM 0.000 [facility] MYCOPLASMA GENITALIUM Not detected [facility] NEISSERIA GONORRHOEAE 0.000 [facility] NEISSERIA GONORRHOEAE Not detected [facility] TRICHOMONAS VAGINALIS 0.000 [facility] TRICHOMONAS VAGINALIS Not detected [facility] Urinalysis macro (dipstick) panel (U)on 04-09-2024 Bilirubin, UA Negative Negative - 4(70) +++ mg/dL [facility] Blood, UA Negative Negative - 50 Milo/mcL [facility] Clarity, UA Cloudy [facility] Color, UA Yellow [facility] Glucose, UA Negative Negative - 1999(110) ++++ mg/dL [facility] Interpretation and review of laboratory results Abnormal [facility] Ketones, UA Negative Negative - 160(16) ++++ mg/dL [facility] Leukocytes, UA Positive Negative - 500+++ Sonu/mcL [facility] Nitrite, UA Negative Negative - Positive [facility] Comment on above: small pH, UA 8.0 5 - 9 [facility] Protein, UA Negative Negative - 1999(20) ++++ mg/dL [facility] Spec Grav, UA 1.020 1 - 1.03 [facility] Urobilinogen, UA 0.2 0.2 - 12 mg/dL [facility] RPRon 02-10-2024 Reagin Ab RPR Ql (S) Non-Reactive Normal NONREACTIVE A [facility] Comment on above: Result Comment: Test ing performed at [place] [address] Performed By: #### F X #### [place] [address] RUBELLA SCREENon 02-10-2024 RUBELLA SCREEN Positive Normal POSITIVE [facility] Comment on above: Result Comment: POSI TIVE RESULT INDICATES PRESUMED IMMUNITY Testing performed at [place] [address] Performed By: #### F X #### [place] [address] HEP B SURFACE AGon HEP B SURFACE AG Negative Normal NEGATIVE [facility] Comment on above: Performed By: #### F X #### [place] [address] HEP C ABon 02-07-2024 HEP C AB Negative Normal NEGATIVE [facility] Comment on above: Performed By: #### F X #### [place] [address] CBCon 02-06-2024 ABSOLUTE BAS 0.0 10*3/uL Normal 0.0-0.2 [facility] Comment on above: Result Comment: Test ing performed at [place] [address] Performed By: #### F X #### [place] [address] ABSOLUTE EOS 0.1 10*3/uL Normal 0.0-0.7 [facility] Comment on above: Performed By: #### F X #### [place] [address] ABSOLUTE NEUTROPHIL COUNT 9.0 10*3/uL High 1.4-6.5 [facility] Comment on above: Performed By: #### F X #### [place] [address] Basophils/100 WBC (Bld) 0.2 % Normal 0.0-2.0 [facility] Comment on above: Performed By: #### F X #### [place] [address] DTYPE AUTO DIFF Normal [facility] Comment on above: Performed By: #### F X #### Testing performed at [address] [address] Eosinophils/100 WBC (Bld) 0.6 % Normal 0.0-11.0 [facility] Comment on above: Performed By: #### F X #### Testing performed at [address] [address] Lymphocytes (Bld) [#/Vol] 2.2 10*3/uL Normal 1.2-3.4 [facility] Comment on above: Performed By: #### F X #### Testing performed at [address] [address] Lymphocytes/100 WBC (Bld) 18.4 % Low 20.0-55.0 [facility] Comment on above: Performed By: #### F X #### Testing performed at [address] [address] Monocytes (Bld) [#/Vol] 0.8 10*3/uL High 0.0-0.7 [facility] Comment on above: Performed By: #### F X #### Testing performed at [address] [address] Monocytes/100 WBC (Bld) 6.3 % Normal 0.0-10.0 [facility] Comment on above: Performed By: #### F X #### Testing performed at [address] [address] Neutrophils/100 WBC (Bld) 74.5 % Normal 37.0-75.0 [facility] Comment on above: Performed By: #### F X #### Testing performed at [address] [address] Erythrocyte distribution width (RBC) [Ratio] 13.5 % Normal 11.5-14.5 [facility] Comment on above: Performed By: #### F X #### Testing performed at [address] [address] Hematocrit (Bld) [Volume fraction] 36.2 % Normal 36.0-48.0 [facility] Comment on above: Performed By: #### F X #### Testing performed at [address] [address] Hemoglobin (Bld) [Mass/Vol] 12.0 g/dL Normal 12.0-16.0 [facility] Comment on above: Performed By: #### F X #### Testing performed at [address] [address] MCH (RBC) [Entitic mass] 29.6 pg Normal 26.0-35.0 [facility] Comment on above: Performed By: #### F X #### Testing performed at [address] [address] MCHC (RBC) [Mass/Vol] 33.0 g/dL Normal 27.0-37.0 [facility] Comment on above: Performed By: #### F X #### Testing performed at [address] [address] MCV (RBC) [Entitic vol] 89.7 fL Normal 80.0-100.0 [facility] Comment on above: Performed By: #### F X #### Testing performed at [address] [address] Platelet mean volume (Bld) [Entitic vol] 6.9 fL Low 7.4-11.0 [facility] Comment on above: Performed By: #### F X #### Testing performed at [address] [address] Platelets (Bld) [#/Vol] 406 10*3/uL High 130-400 [facility] Comment on above: Performed By: #### F X #### Testing performed at [address] [address] RBC (Bld) [#/Vol] 4.04 10*6/uL Normal 4.0-5.4 [facility] Comment on above: Performed By: #### F X #### Testing performed at [address] [address] WBC (Bld) [#/Vol] 12.1 10*3/uL High 3.6-11.0 [facility] Comment on above: Performed By: #### F X #### [place] [address] FAX REQUESTon 02-06-2024 FAX TO [phone] [facility] Comment on above: Result Comment: Test ing performed at [place] [address] Performed By: #### F X #### [place] [address] FAX TO [phone] [facility] Comment on above: Result Comment: Test ing performed at [place] [address] Performed By: #### F X #### [place] [address] FAX TO [phone] [facility] Comment on above: Result Comment: Test ing performed at [place] [address] Performed By: #### F X #### [place] [address] FAX TO [phone] [facility] Comment on above: Result Comment: Test ing performed at [place] [address] Performed By: #### F X #### [place] [address] FAX TO [phone] [facility] Comment on above: Result Comment: Test ing performed at [place] [address] Performed By: #### F X #### [place] [address] HEMOGLOBIN A1Con 02-06-2024 Glucose [Mass/Vol] 100 mg/dL Normal [facility] Comment on above: Result Comment: Test ing performed at [place] [address] Performed By: #### F X #### [place] [address] HbA1c (Bld) [Mass fraction] 5.1 % Normal 0-6 [facility] Comment on above: Result Comment: NORMAL <5.7% PREDIABETES 5.7-6.4% DIABETES 6.5% OR HIGHER Performed By: #### F X #### [place] [address] HIV 1,2 ABon 02-06-2024 HIV 1,2 Non-Reactive Normal NONREACTIVE [facility] Comment on above: Result Comment: Test ing performed at [place] [address] Performed By: #### F X #### [place] [address] TYPE AND SCREEN CROSSMATCH C ONVERTIBLEon 02-06-2024 TYPE AND SCREEN CROSSMATCH CONVERTIBLE WORKUP EXPIRES 02/09/2024,2359 ABO/RH(D) O POSITIVE ANTIBODY SCREEN NEGATIVE ARM BAND NUMBER [id number] Testing performed at [place] [address] Normal [facility] Comment on above: Performed By: #### T SCC #### [place] [address] URINE CULTUREon 02-06-2024 Bacteria identified Cx Nom (U) SPECIMEN DESCRIPTION URINE CLEAN CATCH CULTURE NO PATHOGENS ISOLATED * Result Note: Testing performed at [place] [address] * REPORT STATUS 02/08/2024 * Result Note: FINAL * Normal [facility] Comment on above: Performed By: #### A URNC #### [place] [address] ECHOCARDIOGRAM TREADMILL STR ESS TESTOrdered By: Sandee Doan on 02-18-2021 APPROVED REPORT EXAM: Treadmill [...] were monitored. An Echocardiogram was performed by shampoo technician in four stages in quad fashion. At peak stress, four selected images were obtained and placed side by side with resting images for comparison. Stress Test Details Test: Exercise stress testing was performed using a Rodger protocol. HR Resting HR: 109 bpm Max Heart Rate (APMHR): 194.883406 bpm Max HR Achieved: 200 bpm Target HR (85% APMHR): 164.190614 bpm % of APMHR: 103.09 Recovery HR: [...] 13.70 METs Scale: Active Angina Score: None [employer] User, Interfaces - 02/18/2021 12:14 AM EDT [...] were monitored. An Echocardiogram was performed by shampoo technician in four stages in quad fashion. At peak stress, four selected images were obtained and placed side by side with resting images for comparison. Stress Test Details Test: Exercise stress testing was performed using a Rodger protocol. HR Resting HR: 109 bpmMax Heart Rate (APMHR): 194.224888 bpm Max HR Achieved: 200 bpmTarget HR (85% APMHR): 164.050881 bpm % of APMHR: 103.09 Recovery HR: [...] 13.70 METs Scale: Active Angina Score: None [facility] ECGOrdered By: Sandee Doan on 01-27-2021 [facility] B12 & FOLATEOrdered By: Yessy Doan on 01-17-2021 Cobalamin (Vitamin B12) [Mass/Vol] 383 pg/mL 239 - 931 PG/ML [facility] Folate [Mass/Vol] 19.7 ng/mL [facility] Comment on above: Testing performed at [place] [id number] [facility] CBC, EDIF, PLATELETOrdered B y: Sandee Doan on 01-17-2021 ABSOLUTE BASOPHIL COUNT 0.1 10*3/uL 0.0 - 0.2 10*3/uL [facility] Comment on above: Testing performed at [place] [address] Basophils/100 WBC (Bld) 0.4 % 0.0 - 2.0 % [facility] Differential cell count method Nom (Bld) AUTO DIFF % [facility] Eosinophils (Bld) [#/Vol] 0.10 10*3/uL 0.0 - 0.7 10*3/uL [facility] Eosinophils/100 WBC (Bld) 0.6 % 0.0 - 11.0 % [facility] Erythrocyte distribution width (RBC) [Ratio] 13.2 % 11.5 - 14.5 % [facility] Hematocrit (Bld) [Volume fraction] 39.3 % 36.0 - 48.0 % [facility] Hemoglobin (Bld) [Mass/Vol] 13.6 g/dL [facility] Interpretation and review of laboratory results Abnormal [facility] Lymphocytes (Bld) [#/Vol] 1.90 10*3/uL 1.2 - 3.4 10*3/uL [facility] Lymphocytes/100 WBC (Bld) 13.6 % Low 20.0 - 55.0 % [facility] MCH (RBC) [Entitic mass] 31.1 pg 26.0 - 35.[address] [facility] MCHC (RBC) [Mass/Vol] 34.7 g/dL [facility] MCV (RBC) [Entitic vol] 89.[address] [facility] Monocytes (Bld) [#/Vol] 0.5 10*3/uL 0.0 - 0.7 10*3/uL [facility] Monocytes/100 WBC (Bld) 3.5 % 0.0 - 10.0 % [facility] Neutrophils (Bld) [#/Vol] 11.3 10*3/uL High 1.4 - 6.5 10*3/uL [facility] Neutrophils/100 WBC (Bld) 81.9 % High 37.0 - 75.0 % [facility] Platelet mean volume (Bld) [Entitic vol] 7.[address] [facility] Platelets (Bld) [#/Vol] 483 10*3/uL High 130.0 - 400.0 10*3/uL [facility] RBC (Bld) [#/Vol] 4.38 10*6/uL 4.0 - 5.4 10*6/uL [facility] WBC (Bld) [#/Vol] 13.8 10*3/uL High 3.6 - 11.0 10*3/uL [facility] COMPREHENSIVE METABOLIC PANE LOrdered By: Sandee Doan on 01-17-2021 Albumin [Mass/Vol] 4.6 G/dl 3.5 - 5.0 G/dl [facility] Albumin/Globulin [Mass ratio] 1.4 {ratio} [facility] ALP [Catalytic activity/Vol] 57 U/L [facility] ALT [Catalytic activity/Vol] 18 U/L <35 IU/L [facility] AST [Catalytic activity/Vol] 21 U/L [facility] Bilirubin [Mass/Vol] 0.4 mg/dL [facility] Calcium [Mass/Vol] 10.3 mg/dL [facility] Chloride [Moles/Vol] 106 mmol/L [facility] Comment on above: Please note: Triglyc eride levels of 600mg/dL or higher may positively bias chloride results by approximately 2.1 mmol CO2 [Moles/Vol] 21 mmol/L Low [facility] Creatinine [Mass/Vol] 0.50 mg/dL Low [facility] GFR COMMENT Average GFR for 20-2 9 years old = 116. [facility] Comment on above: Chronic Kidney disea se, GFR = <60. Kidney failure, GFR = <15. The GFR estimate is not adjusted for extreme body surface area or acute process, nor has it been validated for women or ethnic groups other than and . Testing performed at [place], [place] [address] GFR/1.73 sq M.predicted among blacks MDRD (S/P/Bld) [Vol rate/Area] mL/min/{1.73_m2} ml/min/1.73sq.m [facility] GFR/1.73 sq M.predicted among non-blacks MDRD (S/P/Bld) [Vol rate/Area] mL/min/{1.73_m2} ml/min/1.73sq.m [facility] Glucose post fast [Mass/Vol] 105 mg/dL High [facility] Comment on above: NORMAL <100 mg/dL PREDIABETES 101-126 mg/dL DIABETES 126 mg/dL or higher Interpretation and review of laboratory results Abnormal [facility] Potassium [Moles/Vol] 4.1 mmol/L [facility] Protein [Mass/Vol] 8.0 g/dL [facility] Sodium [Moles/Vol] 138 mmol/L [facility] Urea nitrogen [Mass/Vol] 8 mg/dL [facility] HEMOGLOBIN [id number] By: Sa edi Doan on 01-17-2021 Glucose [Mass/Vol] 100 mg/dL [facility] Comment on above: Testing performed at [place], [place] [address] HbA1c (Bld) [Mass fraction] 5.1 % 0 - 6 % [facility] Comment on above: NORMAL <5.7% PREDIABETES 5.7-6.4% DIABETES 6.5% OR HIGHER [facility] IRON/IRON BINDING/TRANSFERRI NOrdered By: Sandee Doan on 01-17-2021 Interpretation and review of laboratory results Abnormal [facility] Iron [Mass/Vol] 145 ug/dL [facility] Iron binding capacity [Mass/Vol] [address] [facility] Iron saturation [Mass fraction] 29 % [facility] Comment on above: Testing performed at [place], [place] [address] [facility] TSHOrdered By: Sandee Doan on 01-17-2021 TSH Qn 1.420 m[IU]/L [employer] [facility] Comment on above: Testing performed at [address] PROGRESSon 04-25-2018 [facility] NOTES Normal [facility] PROGRESSon 02-19-2018 [facility] NOTES Normal [facility] PROGRESSon 02-13-2018 [facility] NOTES Normal [facility] PAP, ThinPrep, rfx HPV ASCUS on 02-15-2017 Comment Normal [facility] Comment on above: Result Comment: IGLB P CPT CODE AUTOMATION: (NOTE)IGLBP CPT CODE AUTOMATION: This liquid based ThinPrep(R) pap test was screenedwith theIGLBP CPT CODE AUTOMATION: use of an image guided system. Performed By: #### L PRAS ####[facility] [address] [place] [address] lab Director: Dr. Lauro Merino, Diagnosis [facility] Comment on above: Result Comment: Comm ent(NOTE)NEGATIVE FOR INTRAEPITHELIAL LESION AND MALIGNANCY.CELLULAR CHANGES ASSOCIATED WITH INFLAMMATION ARE PRESENT.THIS SPECIMEN WAS RESCREENED PART OF OUR PRODUCTION ENGINEER PROGRAM. Performed By: #### L PRAS ####[facility] [address] [place] [address] lab Director: Dr. Lauro Merino DO IGLBP CPT COde Comment [facility] Comment on above: Performed By: #### L PRAS ####[facility] [address] [place] [address] lab Director: Dr. Lauro Merino, Note [facility] Comment on above: Result Comment: Comm ent(NOTE)The Pap smear is a screening test designed to aid in the detection ofpremalignant and malignant conditions of the uterine cervix. It isnot a diagnostic procedure and should not be used as the sole meansof detecting cervical cancer. Both false-positive and false-negativereports do occur. Performed By: #### L PRAS ####[facility] [address] [place] [id number] Lab Director: Dr. Lauro Merino DO Performed By Comment Marci Lucero, Slubber Frame Changer [facility] Comment on above: Performed By: #### L PRAS ####[facility] [address] [facility] [place] [address] Lab Director: Dr. Lauro Merino DO Performed By [facility] Comment on above: Performed By: #### L PRAS ####[facility] [address] [facility] [place] [address] Lab Director: Dr. Lauro Merino DO QC Reviewed By Comment Dedra Yip , Supervisory Slubber Frame Changer (ASCP) [facility] Comment on above: Performed By: #### L PRAS ####[facility] [address] [place] [address] Lab Director: Dr. Lauro Merino DO Spec Adequacy [facility] Comment on above: Result Comment: Comm ent(NOTE)Satisfactory for evaluation. Endocervical and/or squamous metaplasticcells (endocervical component) are present. Performed By: #### L PRAS ####[facility] [address] [place] [address] Lab Director: Dr. Lauro Merino DO Specimen # [id number] [facility] Comment on above: Performed By: #### L PRAS ####[facility] [address] [place] [address] Lab Director: Dr. Lauro Merino DO . [facility] Comment on above: Result Comment: Comm ent(NOTE)The HPV DNA reflex criteria were not met with this specimen resulttherefore, no HPV testing was performed.No. of containers..01 CYTYC [facility] Performed By: #### L PRAS ####[facility] [address] [place] [address] lab Director: Dr. Lauro Merino DO . . [facility] Comment on above: Performed By: #### L PRAS ####[facility] [address] [place], [place] [id number] lab Director: Dr. Lauro Merino, Vital Signs Date Time Vital Sign Value Performing Clinician Facility 04-15-2025 09:03-0400 Body weight 69.91 kg Daniel Celso DO Work Phone: [facility] 04-15-2025 09:03-0400 Diastolic blood pressure 68 mm[Hg] Daniel Celso DO Work Phone: [facility] 04-15-2025 09:03-0400 Systolic blood pressure 106 mm[Hg] Daniel Celso DO Work Phone: [facility] 09-07-2024 09:50-0500 Body weight 65.77 kg Jeanna KONG Work Phone: [facility] 09-07-2024 09:50-0500 Diastolic blood pressure 76 mm[Hg] Jeanna Estes PA Work Phone: [facility] 09-07-2024 09:50-0500 Systolic blood pressure 120 mm[Hg] Jeanna KONG Work Phone: [facility] 08-27-2024 08:22-0500 Body weight 75.75 kg Daniel Celso DO Work Phone: [facility] 08-27-2024 08:22-0500 Diastolic blood pressure 74 mm[Hg] Daniel Celso DO Work Phone: [facility] 08-27-2024 08:22-0500 Systolic blood pressure 122 mm[Hg] Daniel Celso DO Work Phone: [facility] 08-20-2024 10:27-0500 Body weight 75.3 kg Jeanna KONG Work Phone: [facility] 08-20-2024 10:27-0500 Diastolic blood pressure 72 mm[Hg] Jeanna [place] PA Work Phone: [facility] 08-20-2024 10:27-0500 Systolic blood pressure 120 mm[Hg] Jeanna [place] PA Work Phone: [facility] 08-12-2024 14:32-0500 Body weight 76.11 kg Daniel Celso DO Work Phone: [facility] 08-12-2024 14:32-0500 Diastolic blood pressure 66 mm[Hg] Daniel Celso DO Work Phone: [facility] 08-12-2024 14:32-0500 Systolic blood pressure 124 mm[Hg] Daniel Celso DO Work Phone: [facility] 08-06-2024 15:49-0500 Body weight 76.11 kg Jeanna [place] PA Work Phone: [facility] 08-06-2024 15:49-0500 Diastolic blood pressure 70 mm[Hg] Jeanna Steph PA Work Phone: [facility] 08-06-2024 15:49-0500 Systolic blood pressure 120 mm[Hg] Jeanna Steph PA Work Phone: [facility] 07-16-2024 11:01-0500 Body weight 75.75 kg Jeanna [place] PA Work Phone: [facility] 07-16-2024 11:01-0500 Diastolic blood pressure 72 mm[Hg] Jeanna Steph PA Work Phone: [facility] 07-16-2024 11:01-0500 Systolic blood pressure 116 mm[Hg] Jeanna Steph PA Work Phone: [facility] 07-02-2024 10:02-0500 Body weight 75.93 kg Jeanna Steph PA Work Phone: [facility] 07-02-2024 10:02-0500 Diastolic blood pressure 70 mm[Hg] Jeanna Steph PA Work Phone: [facility] 07-02-2024 10:02-0500 Systolic blood pressure 112 mm[Hg] Jeanna Steph PA Work Phone: [facility] 06-18-2024 15:14-0500 Body weight 76.11 kg Jeanna KONG Work Phone: [facility] 06-18-2024 15:14-0500 Diastolic blood pressure 76 mm[Hg] Jeanna Estes PA Work Phone: [facility] 06-18-2024 15:14-0500 Systolic blood pressure 114 mm[Hg] Jeanna Estes PA Work Phone: [facility] 06-04-2024 11:00-0500 Body weight 75.3 kg Daniel Celso DO Work Phone: [facility] 06-04-2024 11:00-0500 Diastolic blood pressure 72 mm[Hg] Daniel Celso DO Work Phone: [facility] 06-04-2024 11:00-0500 Systolic blood pressure 118 mm[Hg] Daniel Celso DO Work Phone: [facility] 05-07-2024 10:50-0400 Body weight 76.11 kg Jeanna KONG Work Phone: [facility] 05-07-2024 10:50-0400 Diastolic blood pressure 70 mm[Hg] Jeanna KONG Work Phone: [facility] 05-07-2024 10:50-0400 Systolic blood pressure 120 mm[Hg] Jeanna KONG Work Phone: [facility] 04-09-2024 09:14-0400 Body weight 73.94 kg Daniel Celso DO Work Phone: [facility] 04-09-2024 09:14-0400 Diastolic blood pressure 72 mm[Hg] Daniel Celso DO Work Phone: [facility] 04-09-2024 09:14-0400 Systolic blood pressure 120 mm[Hg] Daniel Celso DO Work Phone: [facility] 03-27-2023 09:16-0400 Body height 157.5 cm Noni GR Work Phone: [facility] 03-27-2023 09:16-0400 Body mass index (BMI) [Ratio] 29.26 kg/m2 Ami Hay [employer] Work Phone: [facility] 03-27-2023 09:16-0400 Body weight 72.58 kg Ami Hay [employer] Work Phone: [facility] 03-27-2023 09:16-0400 Diastolic blood pressure 64 mm[Hg] Ami Hay [employer] Work Phone: [facility] 03-27-2023 09:16-0400 Systolic blood pressure 110 mm[Hg] Ami Hay [employer] Work Phone: [facility] 03-19-2022 10:05-0400 Body height 157.5 cm Marina Solaresam [employer] Work Phone: [facility] 03-19-2022 10:05-0400 Body mass index (BMI) [Ratio] 30.91 kg/m2 Marina Kofi [employer] Work Phone: [facility] 03-19-2022 10:05-0400 Body weight 76.66 kg Marina Kofi [employer] Work Phone: [facility] 03-19-2022 10:05-0400 Diastolic blood pressure 66 mm[Hg] Marina Kofi [employer] Work Phone: [facility] 03-19-2022 10:05-0400 Systolic blood pressure 122 mm[Hg] Marina Kofi [employer] Work Phone: [facility] 03-17-2021 13:57-0400 Body height 157.5 cm Marina Kofi [employer] Work Phone: [facility] 03-17-2021 13:57-0400 Body mass index (BMI) [Ratio] 28.9 kg/m2 Marina Kofi [employer] Work Phone: [facility] 03-17-2021 13:57-0400 Body weight 71.67 kg Marina Kirby [employer] Work Phone: [facility] 03-17-2021 13:57-0400 Diastolic blood pressure 76 mm[Hg] Marina Kirby [employer] Work Phone: [facility] 03-17-2021 13:57-0400 Systolic blood pressure 122 mm[Hg] Marina Kirby [employer] Work Phone: [facility] 02-01-2021 07:05-0400 Body height 157.5 cm Sandee Doan MD Work Phone: [facility] 02-01-2021 07:05-0400 Body mass index (BMI) [Ratio] 29.07 kg/m2 Sandee Doan MD Work Phone: [facility] 02-01-2021 07:05-0400 Body temperature 98.4 [degF] Sandee Doan MD Work Phone: [facility] 02-01-2021 07:05-0400 Body weight 72.12 kg Sandee Doan MD Work Phone: [facility] 02-01-2021 07:05-0400 Diastolic blood pressure 84 mm[Hg] Sandee Doan MD Work Phone: [facility] 02-01-2021 07:05-0400 Heart rate 127 /min Sandee Doan MD Work Phone: [facility] 02-01-2021 07:05-0400 Respiratory rate 18 /min Sandee Doan MD Work Phone: [facility] 02-01-2021 07:05-0400 SaO2% (BldA) [Mass fraction] 99 % Sandee Doan MD Work Phone: [facility] 02-01-2021 07:05-0400 Systolic blood pressure 130 mm[Hg] Sandee Doan MD Work Phone: [facility] 01-17-2021 09:37-0400 Diastolic blood pressure 80 mm[Hg] Sandee Doan MD Work Phone: [facility] 01-17-2021 09:37-0400 Heart rate 111 /min Sandee Doan MD Work Phone: [facility] 01-17-2021 09:37-0400 Systolic blood pressure 130 mm[Hg] Sandee Doan MD Work Phone: [facility] 01-17-2021 08:17-0400 Body height 157.5 cm Sandee Doan MD Work Phone: [facility] 01-17-2021 08:17-0400 Body mass index (BMI) [Ratio] 28.74 kg/m2 Sandee Doan MD Work Phone: [facility] 01-17-2021 08:17-0400 Body temperature 98.6 [degF] Sandee Doan MD Work Phone: [phone] [place] [address] 01-17-2021 08:17-0400 Body weight 71.31 kg Sandee Doan MD Work Phone: [phone] [place] [address] 01-17-2021 08:17-0400 Respiratory rate 18 /min Sandee Doan MD Work Phone: [facility] 01-17-2021 08:17-0400 SaO2% (BldA) [Mass fraction] 99 % Sandee Doan MD Work Phone: [facility] 03-15-2020 09:24-0400 BMI (Body Mass Index) 29.78 kg/m2 [facility] 03-15-2020 09:24-0400 Body Temperature 97.81 [degF] [facility] 03-15-2020 09:24-0400 Body weight 73.85 kg [facility] 03-15-2020 09:24-0400 BP Diastolic 62 mm[Hg] [facility] 03-15-2020 09:24-0400 BP Systolic 128 mm[Hg] [facility] 03-15-2020 09:24-0400 Height 157.5 cm [facility] 03-11-2019 14:45-0400 BMI (Body Mass Index) 28.9 kg/m2 [facility] 03-11-2019 14:45-0400 Body weight 71.67 kg [facility] 03-11-2019 14:45-0400 BP Diastolic 72 mm[Hg] [facility] 03-11-2019 14:45-0400 BP Systolic 120 mm[Hg] [facility] 03-11-2019 14:45-0400 Height 157.5 cm [facility] Encounters Encounter Date Encounter Type Care Provider Facility Start: 04-15-2025 End: 04-15-2025 Bamboo flowsheet Daniel Celso DO Work Phone: [facility] Start: 04-15-2025 End: 04-15-2025 Bamboo flowsheet Daniel Celso DO Work Phone: [facility] Start: 04-15-2025 End: 04-15-2025 Patient encounter procedure Daniel Celso DO Work Phone: [facility] Work Phone: Start: 04-15-2025 End: 04-15-2025 Periodic preventive med est patient 18-39 yrs Daniel Celso DO Work Phone: [facility] Comment on above: Well woman exam with routine gynecological exam Start: 11-09-2024 End: 11-09-2024 Bamboo flowsheet Marci A Felter [employer] Work Phone: [facility] Start: 11-09-2024 End: 11-09-2024 Bamboo flowsheet Marci A Felter [employer] Work Phone: [facility] Start: 11-09-2024 End: 11-09-2024 Office outpatient new 30 minutes Marci A Felter [employer] Work Phone: [facility] Comment on above: Melanocytic nevus of trunk (Primary Dx) Start: 11-09-2024 End: 11-09-2024 ambulatory MARCI BONDS Not Available Start: 10-12-2024 End: 10-12-2024 ambulatory JEANNA ESTES Not Available Start: 09-07-2024 End: 09-07-2024 Bamboo flowsheet Jeanna KONG Work Phone: [facility] Start: 09-07-2024 End: 09-07-2024 Bamboo flowsheet Jeanna Estes PA Work Phone: [facility] Start: 09-07-2024 End: 09-07-2024 Postop follow up visit related to original px Jeanna KONG Work Phone: [facility] Comment on above: Postoperative follow -up Start: 09-07-2024 End: 09-07-2024 ambulatory JEANNA ESTES Not Available Start: 08-31-2024 End: 08-31-2024 Clinisync Result Encounter Daniel Celso DO Work Phone: [facility] Unsolicited Start: 08-31-2024 End: 08-31-2024 Clinisync Result Encounter Daniel Celso DO Work Phone: [facility] Unsolicited Start: 08-27-2024 End: 08-27-2024 Bamboo flowsheet Daniel Celso DO Work Phone: [facility] Start: 08-27-2024 End: 08-27-2024 Bamboo flowsheet Daniel Celso DO Work Phone: [facility] Start: 08-27-2024 End: 08-27-2024 flow sheet Daniel Celso DO Work Phone: [facility] Comment on above: Third trimester preg niko; 38 weeks gestation of Start: 08-27-2024 End: 08-27-2024 ambulatory DANIEL CELSO Not Available Start: 08-23-2024 End: 08-25-2024 [...] of Start: 08-12-2024 End: 08-12-2024 flow sheet Daniel Celso DO Work Phone: [facility] Comment on above: Third trimester preg niko; 36 weeks gestation of Start: 08-12-2024 End: 08-12-2024 ambulatory DANIEL CELSO Not Available Start: 08-12-2024 End: 08-12-2024 Bamboo flowsheet Daniel Celso DO Work Phone: [facility] Start: 08-12-2024 End: 08-12-2024 Bamboo flowsheet Daniel Celso DO Work Phone: [facility] Start: 08-06-2024 End: 08-06-2024 flow sheet Jeanna KONG Work Phone: [facility] Comment on above: 35 weeks gestation o f ; Third trimester ; Anxiety, generalized (CMS/HCC) Start: 08-06-2024 End: 08-06-2024 ambulatory JEANNA ESTES Not Available Start: 08-06-2024 End: 08-06-2024 Clinisync Result Encounter Daniel Celso DO Work Phone: [facility] Unsolicited Start: 08-06-2024 End: 08-06-2024 Clinisync Result Encounter Daniel Houston DO Work Phone: [facility] External Department Unsolicited Start: 07-16-2024 End: 07-16-2024 Bamboo flowsheet Jeanna KONG Work Phone: [facility] Start: 07-16-2024 End: 07-16-2024 Bamboo flowsheet Jeanna KONG Work Phone: [facility] Start: 07-16-2024 End: 07-16-2024 flow sheet Jeanna KONG Work Phone: [facility] Comment on above: Third trimester preg niko; 32 weeks gestation of Start: 07-16-2024 End: 07-16-2024 ambulatory JEANNA ESTES Not Available Start: 07-02-2024 End: 07-02-2024 Bamboo flowsheet Jeanna KONG Work Phone: [facility] Start: 07-02-2024 End: 07-02-2024 Bamboo flowsheet Jeanna Estes PA Work Phone: [facility] Start: 07-02-2024 End: 07-02-2024 Periodic preventive med est patient 18-39 yrs Jeanna KONG Work Phone: [facility] Comment on above: Third trimester preg niko; 31 weeks gestation of ; Anemia during in third trimester Start: 07-02-2024 End: 07-02-2024 ambulatory JEANNA ESTES Not Available Start: 06-18-2024 End: 06-18-2024 flow sheet Jeanna KONG Work Phone: [facility] Comment on above: Third trimester preg niko; 28 weeks gestation of ; Anemia during in third trimester; Gestational diabetes mellitus (GDM), antepartum, gestational diabetes method of control unspecified; Elevated glucose tolerance test Start: 06-18-2024 End: 06-18-2024 ambulatory JEANNA ESTES Not Available Start: 06-18-2024 End: 06-18-2024 Bamboo flowsheet Jeanna KONG Work Phone: [facility] Start: 06-18-2024 End: 06-18-2024 Bamboo flowsheet Jeanna KONG Work Phone: [facility] Start: 06-18-2024 ambulatory [facility] Start: 06-04-2024 End: 06-04-2024 Bamboo flowsheet Daniel Celso DO Work Phone: [facility] Start: 06-04-2024 End: 06-04-2024 Bamboo flowsheet Daniel Celso DO Work Phone: [facility] Start: 06-04-2024 End: 06-04-2024 flow sheet Daniel Celso DO Work Phone: [facility] Comment on above: Second trimester pre gnancy; 26 weeks gestation of ; Elevated glucose tolerance test; Antepartum anemia Start: 06-04-2024 End: 06-04-2024 ambulatory DANIEL CELSO Not Available Start: 05-28-2024 ambulatory [facility] Start: 05-07-2024 End: 05-07-2024 Bamboo flowsheet Jeanna KONG Work Phone: [facility] Start: 05-07-2024 End: 05-07-2024 Bamboo flowsheet Jeanna KONG Work Phone: [facility] Start: 05-07-2024 End: 05-07-2024 ambulatory JEANNA ESTES Not Available Start: 05-07-2024 End: 05-07-2024 flow sheet Jeanna KONG Work Phone: [facility] Comment on above: 22 weeks gestation o f ; Second trimester ; Diabetes mellitus screening Start: 04-09-2024 End: 04-09-2024 Bamboo flowsheet Daniel Celso DO Work Phone: [facility] Start: 04-09-2024 End: 04-15-2024 Bamboo flowsheet Daniel Celso DO Work Phone: [facility] Start: 04-09-2024 End: 04-15-2024 Clinisync Result Encounter Daniel Soteloo DO Work Phone: [facility] External Department Unsolicited Start: 04-09-2024 End: 04-10-2024 External Result Encounter Daniel Houston DO Work Phone: [facility] External Department Unsolicited Start: 04-09-2024 End: 04-09-2024 Patient encounter procedure Daniel Soteloo DO Work Phone: [facility] Start: 04-09-2024 End: 04-09-2024 Periodic preventive med est patient 18-39 yrs Daniel Soteloo DO Work Phone: [facility] Comment on above: Well woman exam with routine gynecological exam; Exposure to STD; Second trimester ; Need for maternal serum alpha-protein (MSAFP) screening; Screening, , for anatomic survey Start: 04-09-2024 End: 04-09-2024 ambulatory DANIEL CELSO Not Available Start: 03-12-2024 End: 03-12-2024 ambulatory JEANNA ESTES Not Available Start: 02-13-2024 End: 02-13-2024 ambulatory DANIEL CELSO Not Available Start: 02-06-2024 ambulatory DANIEL CELSO [facility] Start: 01-23-2024 End: 01-23-2024 ambulatory DANIEL CELSO Not Available Start: 03-27-2023 End: 03-27-2023 Patient encounter status Noni Patel [employer] Work Phone: [facility] Work Phone: Start: 03-27-2023 End: 03-27-2023 Periodic preventive med est patient 18-39 yrs Noni Patel [employer] Work Phone: [facility] [employer] Comment on above: Encounter for gyneco logical examination without abnormal finding (Primary Dx); Screening for cervical cancer; Encounter for surveillance of contraceptive pills Start: 03-19-2022 End: 03-19-2022 Patient encounter status Marina Kirby [employer] Work Phone: [facility] Start: 03-19-2022 End: 03-19-2022 Periodic preventive med est patient 18-39 yrs Marina Kirby [email or web address] Work Phone: [facility] [employer] Comment on above: Encounter for gyneco logical examination without abnormal finding (Primary Dx); Initiation of oral contraception Start: 03-17-2021 End: 03-17-2021 Patient encounter status Marina Kirby [email or web address] Work Phone: [facility] [employer] Start: 03-17-2021 End: 03-17-2021 Periodic preventive med est patient 18-39 yrs Marina Kirby [email or web address] Work Phone: [facility] [employer] Comment on above: Encounter for gyneco logical examination without abnormal finding (Primary Dx); Encounter for surveillance of contraceptive pills Start: 02-17-2021 End: 02-17-2021 Subsequent hospital visit by physician Sandee Doan MD Work Phone: [employer] Comment on above: Arrived Start: 02-01-2021 End: 02-01-2021 Office outpatient visit 25 minutes Sandee Doan MD [facility] Comment on above: Murmur (Primary Dx); History of COVID-19; Abnormal EKG; Generalized anxiety disorder; Fluid level behind tympanic membrane of both ears; Leukocytosis, unspecified type Start: 01-27-2021 End: 01-27-2021 Subsequent hospital visit by physician Sandee Doan MD Work Phone: [email or web address] Comment on above: Arrived Start: 01-17-2021 End: 01-17-2021 Office outpatient visit 25 minutes Sandee Doan MD Work [facility]: [facility] Comment on above: Lightheadedness (Jaycee mandi Dx); Screening for condition; BMI 28.0-28.9,adult; Irregular periods/menstrual cycles; Menorrhagia with regular cycle; Fluid level behind tympanic membrane of both ears; Iron deficiency anemia due to chronic blood loss Start: 03-15-2020 End: 03-15-2020 Periodic preventive med est patient 18-39 yrs Marina Kirby Work Phone: [facility] [employer] Comment on above: Encounter for gyneco logical examination without abnormal finding (Primary Dx); Encounter for surveillance of contraceptive pills Start: 03-11-2019 End: 03-11-2019 Periodic preventive med est patient 18-39 yrs Marina Kirby Work Phone: [facility] [employer] Comment on above: Encounter for gyneco logical examination without abnormal finding (Primary Dx); Encounter for surveillance of contraceptive pills Start: 11-19-2018 End: 11-19-2018 Patient encounter procedure Other Other [facility] [place] Start: 04-25-2018 Patient encounter [facility] Start: 02-19-2018 Patient encounter [facility] Start: 02-13-2018 Patient encounter [facility] Start: 02-15-2017 End: 02-16-2017 [facility] MARINA KIRBY [facility] Procedures Date Procedure Procedure Detail Performing Clinician Start: 08-31-2024 ALL CBC WITH AUTO DIFF Daniel Celso DO Work Phone: Start: 08-27-2024 Urnls dip stick/tabl et rgnt non-auto w/o micrscp Daniel Celso DO Work Phone: Start: 08-23-2024 US OB GROWTH Jeanna KONG Work Phone: Start: 08-20-2024 Urnls dip stick/tabl et rgnt non-auto w/o micrscp Jeanna KONG Work Phone: Start: 08-12-2024 Urnls dip stick/tabl et rgnt non-auto w/o micrscp Daniel Celso DO Work Phone: Start: 08-06-2024 Urnls dip stick/tabl et rgnt non-auto w/o micrscp Jeanna KONG Work Phone: Start: 08-06-2024 ALL CBC WITH AUTO DIFF Daniel Celso DO Work Phone: Start: 07-16-2024 Urnls dip stick/tabl et rgnt non-auto w/o micrscp Jeanna KONG Work Phone: Start: 07-02-2024 Urnls dip stick/tabl et rgnt non-auto w/o micrscp Jeanna KONG Work Phone: Start: 06-04-2024 Urnls dip stick/tabl et rgnt non-auto w/o micrscp Daniel Houston DO Work Phone: Start: 05-07-2024 Urnls dip stick/tabl et rgnt non-auto w/o micrscp Jeanna KONG Work Phone: Start: 04-09-2024 URETHRITIS/DISCHARGE PLUS VAGINITIS (HTRX) Daniel Celso DO Work Phone: Start: 04-09-2024 Urnls dip stick/tabl et rgnt non-auto w/o micrscp Daniel Celso DO Work Phone: Start: 04-09-2024 IGP,APTIMA HPV,AGE GDLN [facility] DO Work Phone: Start: 04-09-2024 Microscopic observat ion [Identifier] in Cervix by Cyto stain Marci Vamshi [employer] Work Phone: Start: 03-17-2021 PAP IG, RFX HPV ASCU Sh erri L Kofi [facility] Work Phone: Start: 02-17-2021 Echo tthrc r-t 2d w/ wo m-mode complete rest&st Sandee Doan MD Work Phone: Start: 01-27-2021 Ecg routine ecg w/le ast 12 lds trcg only w/o i&r Sandee Doan MD Work Phone: Start: 01-17-2021 B12/folate level Sandee Doan MD Work Phone: Start: 01-17-2021 Complete blood count with white cell differential, automated Sandee Doan MD Work Phone: Start: 01-17-2021 Comprehensive metabo lic panel Sandee Doan MD Work Phone: Start: 03-15-2020 PAP IG, RFX HPV ASCU Sh iggy Kirby Work Phone: Plan of Treatment Date Care Activity Detail Author Start: 04-19-[address] [facility] Start: 04-09-2027 Screening for malignant neoplasm of cervix [facility] Start: 04-21-2026 End: 04-21-2026 Patient encounter procedure 04/21/2026 8:30 AM EDT Procedure Visit [facility] [address] [place] [address] Daniel Houston DO [address] [place], [place] [id number] [facility] Start: 11-11-2025 End: 11-11-2025 Patient encounter procedure [facility] Start: 04-15-2025 End: 04-15-2025 Patient encounter procedure [facility] Comment on above: Arrived Start: 03-29-2025 Influenza vaccination [facility] Start: 11-09-2024 End: 11-09-2024 Patient encounter procedure 11/09/2024 10:35 AM EDT Office Visit [facility] [address] [place] [id number] Marci Bonds, [employer]END[employer] [address] [place] [address] Arrived [facility] Comment on above: Arrived Start: 2024 Screening for malignant neoplasm of cervix HPV/Cotest [facility] Start: 10-12-2024 End: 10-12-2024 ambulatory 10/12/2024 9:30 AM EDT Visit [facility] [address] [place] [address] Jeanna Estes PA [address] [place] [address] [facility] Start: 09-07-2024 End: 09-07-2024 Patient encounter procedure 09/07/2024 9:50 AM EST Office Visit [facility] [address] [place] [phone] Jeanna Estes, PA [address] [place] [address] Arrived [facility] Comment on above: Arrived Start: 08-27-2024 End: 08-27-2024 Patient encounter procedure [...] AM EST Routine [facility] [address] [place] [phone] Jeanna Estes, PA [address] [place] [address] [facility] Start: 08-12-2024 End: 08-12-2024 Patient encounter procedure [facility] Comment on above: Arrived Start: 08-06-2024 End: 08-06-2024 Patient encounter procedure 08/06/2024 3:50 PM EST Routine [facility] [address] [place] [phone] Jeanna Estes, PA [address] [place] [address] [facility] Start: 08-06-2024 End: 08-06-2025 CULTURE, GROUP B STREP WITH SUSCEPTIBLITY CULTURE, GROUP B STREP WITH SUSCEPTIBLITY Lab Routine 35 weeks gestation of Third trimester Expected: 08/06/2024, Expires: 08/06/2025 [facility] Work Phone: Comment on above: Expected: 08/06/2024, Expires: Start: 07-16-2024 End: 07-16-2024 Patient encounter procedure 07/16/2024 11:00 AM EST Routine [facility] [address] [place] [phone] Jeanna Estes PA [address] [place] [address] Arrived [facility] Comment on above: [...] mellitus screening Expected: 05/07/2024 (Approximate), Expires: 05/07/2025 [facility] Work Phone: Comment on above: Expected: 05/07/2024 (Approximate), Expi res: 05/07/2025 Start: 05-07-2024 End: 05-07-2025 Measurement of glucose 1 hour after glucose challenge for glucose tolerance test Glucose tolerance, 1 hour Lab Routine Diabetes mellitus screening Expected: 05/07/2024 (Approximate), Expires: 05/07/2025 [facility] Comment on above: Expected: 05/07/2024 (Approximate), Expi res: 05/07/2025 Start: 05-07-2024 End: 05-07-2024 Patient encounter procedure 05/07/2024 10:30 AM EDT Routine [facility] [address] [address] Jeanna Estes PA [address] [place], [place] [id number] [facility] Start: 04-23-2024 End: 04-23-2024 Professional / ancillary services management 04/23/2024 8:00 AM EDT Ancillary Procedure [facility] [address] [place] [address] [facility] Start: 04-09-2024 End: 05-09-2024 Alpha fetoprotein, maternal Alpha fetoprotein, maternal Lab Routine Need for maternal serum alpha-protein (MSAFP) screening Expected: 04/09/2024 (Approximate), Expires: 05/09/2024 [facility] Comment on above: Expected: 04/09/2024 (Approximate), Expi res: 05/09/2024 Start: 04-09-2024 End: 04-09-2025 US for US OB ANATOMY SINGLE W US OB CERVICAL LENGTH Imaging Routine Screening, , for anatomic survey Expected: 04/09/2024 (Approximate), Expires: 04/09/2025 [facility] Comment on above: Expected: 04/09/2024 (Approximate), Expi res: 04/09/2025 Start: 04-09-2024 End: 04-09-2024 Patient encounter procedure 04/09/2024 8:50 AM EDT Routine [facility] [address] [place] [phone] Daniel Houston DO [address] [place], [place] [id number] Arrived [facility] Comment on above: Arrived Start: 04-01-2024 End: 04-01-2024 Patient encounter procedure 04/01/2024 8:50 AM EDT Office Visit [facility] [employer] [address] [place] [phone] Noni Patel, [employer]END[employer] [address] [place] [phone] [facility] [employer] Start: 03-27-2024 Screening for malignant neoplasm of cervix CERVICAL CANCER SCREENING DISCUSSION [facility] Start: 03-29-2023 Influenza vaccination INFLUENZA VACCINE (#1) [facility] Start: 03-21-2023 End: 03-21-2023 Patient encounter procedure 03/21/2023 Office Visit [employer] Marina Kirby, [employer]END[employer] [id number] [place] [address] [facility] [employer] Start: 03-19-2023 Screening for malignant neoplasm of cervix CERVICAL CANCER SCREENING DISCUSSION [facility] Start: 03-29-2022 Influenza vaccination INFLUENZA VACCINE (#1) [facility] stem Start: 03-23-2022 End: 03-23-2022 Patient encounter procedure 03/23/2022 Office Visit [employer] Marina Kirby, [employer]END[employer] [address] [id number] [place] [address] [facility] [employer] Start: 03-17-2022 Screening for malignant neoplasm of cervix CERVICAL CANCER SCREENING DISCUSSION [facility] Start: 03-29-2021 Influenza vaccination [facility] m Start: 03-17-2021 End: 03-17-2021 Patient encounter procedure 03/17/2021 Office Visit [employer] Marina Kirby, [employer] [id number] [place] [address] [facility] [employer] Start: 03-17-2021 End: 03-17-2021 Office Visit 03/17/2021 Office Visit [employer] Marina Kirby, [employer]END[employer] [id number] [place] [address] [facility] [employer] Start: 03-15-2021 Screening for malignant neoplasm of cervix CERVICAL CANCER SCREENING DISCUSSION [facility] Start: 02-28-2021 End: 02-28-2021 Patient encounter procedure 02/28/2021 Office Visit Family Medicine Sandee Doan MD [address] [place] [facility] [place] [address] [facility] Start: 02-01-2021 End: 02-01-2022 Complete blood count with white cell differential, automated CBC, EDIF, PLATELET Lab Routine Leukocytosis, unspecified type Expected: 02/01/2021, Expires: 02/01/2022 [facility] Comment on above: Expected: 02/01/2021, Expires: 2 Start: 02-01-2021 End: 02-01-2022 Exercise stress echocardiography ECHOCARDIOGRAM TREADMILL STRESS TEST Stress Echocardiography Routine Murmur History of COVID-19 Abnormal EKG Expected: 02/01/2021, Expires: 02/01/2022 [facility] Comment on above: Expected: 02/01/2021, Expires: 2 Start: 02-01-2021 End: 02-01-2021 Patient encounter procedure 02/01/2021 Office Visit Family Medicine Sandee Doan MD [address] [facility] [place] [address] [phone] [facility] Start: 01-17-2021 End: 01-17-2022 Standard ECG ECG ECG Routine Lightheadedness Expected: 01/17/2021, Expires: 01/17/2022 [facility] Comment on above: Expected: 01/17/2021, Expires: 2 Start: 06-15-2020 End: 03-15-2021 [facility] CYTOLOGY-TAFFY PULLER, LIQUID BASED [facility] CYTOLOGY-TAFFY PULLER, LIQUID BASED Cytology Routine Encounter for gynecological examination without abnormal finding Expected: 06/15/2020, Expires: 03/15/2021 [facility] Comment on above: Expected: 06/15/2020, Expires: 1 Start: 03-29-2020 Influenza vaccination INFLUENZA VACCINE (#1) [facility] Start: 03-11-2020 Screening for malignant neoplasm of cervix CERVICAL CANCER SCREENING DISCUSSION [facility] Start: 03-29-2019 Influenza vaccination [facility] Start: 03-11-2019 End: 03-11-2020 [facility] CYTOLOGY-TAFFY PULLER, LIQUID BASED [facility] CYTOLOGY-TAFFY PULLER, LIQUID BASED Cytology Routine Encounter for gynecological examination without abnormal finding Expected: 03/11/2019, Expires: 03/11/2020 [facility] Comment on above: Expected: 03/11/2019, Expires: 0 Start: 02-20-2019 End: 02-20-2019 Office Visit 02/20/2019 Office Visit [employer] Marina Kirby, [employer] [id number] [place] [address] [phone] [facility] [employer] Start: 02-18-2019 Screening for malignant neoplasm of cervix PAP SMEAR DISCUSSION [facility] Start: 02-15-2018 Screening for malignant neoplasm of cervix PAP SMEAR DISCUSSION [facility] Start: 01-26-[address] [facility] Start: 2013 Third diphtheria, tetanus and acellular pertussis (DTaP) vaccination TDAP (ADULT) [facility] Start: 2010 Screening for Chlamydia trachomatis CHLAMYDIA SCREEN [facility] Start: 2009 HIV screening HIV SCREENING DISCUSSION [facility] Start: 11-09-2007 HIV screening HIV SCREENING DISCUSSION [facility] Start: 2006 COVID-19 VACCINE (1) COVID-19 VACCINE (1) [facility] Start: 05-10-1995 COVID-19 VACCINE (#1) COVID-19 VACCINE (#1) [facility] Start: 1994 GONORRHEA SCREEN GONORRHEA SCREEN [facility] Start: 1994 Hepatitis C antibody, confirmatory test HEPATITIS C VIRUS SCREENING [facility] Start: 1994 Hepatitis C screening HEPATITIS C VIRUS SCREENING [facility] CBC panel - Blood by Automated count CBC Lab Routine Anemia during in third trimester Ordered: 06/18/2024 [facility] Work Phone: Comment on above: Ordered: 06/18/2024 CHLAMYDIA TRACHOMATI S (GENITO/STI) CHLAMYDIA TRACHOMATIS (GENITO/STI) Lab Routine Exposure to STD Ordered: 04/09/2024 [facility] Comment on above: Ordered: 04/09/2024 Cytology Cervical or vaginal smear or scraping study Pap Smear Pathology and Cytology Routine Well woman exam with routine gynecological exam Ordered: 04/09/2024 [facility] Comment on above: Ordered: 04/09/2024 Cytology Cervical or vaginal smear or scraping study Pap Smear Pathology and Cytology Routine Well woman exam with routine gynecological exam Ordered: 04/15/2025 [facility] [employer] Work Phone: Comment on above: Ordered: 04/15/2025 Ferritin [Mass/volum e] in Serum or Plasma Ferritin Lab Routine Anemia during in third trimester Ordered: 07/02/2024 [facility] [employer] Work Phone: Comment on above: Ordered: 07/02/2024 Human papilloma viru s DNA [Presence] in Unspecified specimen by Probe with amplification HPV DNA probe, amplified Microbiology Routine Well woman exam with routine gynecological exam Ordered: 04/15/2025 [facility] [employer] Comment on above: Ordered: 04/15/2025 Neisseria gonorrhoea e DNA [Presence] in Unspecified specimen by LINO with probe detection Neisseria gonorrhea DNA probe, direct Lab Routine Exposure to STD Ordered: 04/09/2024 [facility] Comment on above: Ordered: 04/09/2024 PAP IG, RFX HPV ASCU PAP IG, RFX HPV ASCU LAB SEND OUTS Routine 03/15/2020 9:[address] [facility] PAP IG, RFX HPV ASCU PAP IG, RFX HPV ASCU Cytology Routine 03/17/2021 1:55 PM [facility] Work Phone: PAP IG, RFX HPV ASCU PAP IG, RFX HPV ASCU [facility], [facility] PAP IG, RFX HPV ASCU Cytology Routine 03/27/2023 9:25 AM [facility] SURESWAB(R) ADVANCED VAGINITIS PLUS, TMA SURESWAB(R) ADVANCED VAGINITIS PLUS, TMA Pathology and Cytology Routine Exposure to STD Ordered: 04/09/2024 [facility] Work Phone: Comment on above: Ordered: 04/09/2024 Immunizations Immunization Date Immunization Notes Care Provider [facility] 06-10-2023 influenza virus vacc ine, unspecified formulation Marci Bonds [employer] Work Phone: [facility] 05-20-2019 influenza virus vacc ine, unspecified formulation [facility] 05-09-2016 influenza virus vacc ine, unspecified formulation Other [facility] 04-24-2012 meningococcal polysaccharide (groups A, C, Y and W-135) diphtheria toxoid conjugate vaccine (MCV4P) Other [facility] 09-02-2007 human papilloma viru s vaccine, bivalent Other [facility] 05-02-2007 human papilloma viru s vaccine, bivalent Other Other [facility] 02-11-2007 human papilloma viru s vaccine, bivalent Other [facility] 02-11-2007 meningococcal polysaccharide (groups A, C, Y and W-135) diphtheria toxoid conjugate vaccine (MCV4P) Other Other [facility] 02-11-2007 varicella virus vaccine Other Other [facility] 01-25-2006 tetanus toxoid, redu cate diphtheria toxoid, and acellular pertussis vaccine, adsorbed Other Other [facility] 03-03-2001 varicella virus vaccine Other [facility] 11-14-1999 measles, mumps and rubella virus vaccine Other Other [facility] 06-15-1996 diphtheria, tetanus toxoids and acellular pertussis vaccine Other Other [facility] 03-10-1996 haemophilus influenz ae type b vaccine, conjugate unspecified formulation Other Other [facility] 03-10-1996 measles, mumps and rubella virus vaccine Other Other [facility] 08-13-1995 hepatitis B vaccine, pediatric or pediatric/adolescent dosage Other Other [facility] 04-11-1995 poliovirus vaccine, inactivated Other Other [facility] 02-01-1995 hepatitis B vaccine, pediatric or pediatric/adolescent dosage Other Other [facility] 1994 hepatitis B vaccine, pediatric or pediatric/adolescent dosage Other Other [facility] Payers Date Payer Category Payer Private Health Insurance [employer] [id number] 2021 Unknown [id number] 2021 Unknown [id number] 2016 Unknown 2014 Unknown [id number] 1994 Unknown [id number] 2.16.840.1.043163.3.579.2. 983 1994 Unknown [id number] 2.16.840.1.794619.3.579.2. 983 1994 Unknown [id number] 2.16.840.1.561068.3.579.2. 983 1994 Unknown [id number] 2.16.840.1.029384.3.579.2. 1259 1994 Unknown [id number] 2.16.840.1.920812.3.579.2. 1259 1994 Unknown [id number] 2.16.840.1.758537.3.579.2. 9 1994 Unknown [id number] 2.16.840.1.082291.3.579.2. 1258 1994 Unknown [id number] 2.16.840.1.447897.3.579.2. 1258 1994 Unknown [id number] 2.16.840.1.132497.3.579.2. 1258 1994 Unknown [id number] 2.16.840.1.751757.3.579.2. 1258 1994 Unknown [id number] 2.16.840.1.564200.3.579.2. 1258 1994 Unknown [id number] 2.16.840.1.374144.3.579.2. 1258 1994 Unknown [id number] 2.16.840.1.183967.3.579.2. 1258 1994 Unknown [id number] 2.16.840.1.788200.3.579.2. 1258 1994 Unknown [id number] 2.16.840.1.080756.3.579.2. 1258 1994 Unknown [id number] 2.16.840.1.210187.3.579.2. 1258 1994 Unknown [id number] 2.16840.1.423382.3.579.2. 1258 1994 Unknown [id number] 2.16.840.1.400641.3.579.2. 1258 1994 Unknown [id number] 2.16.840.1.747972.3.579.2. 9 Social History Date Type Detail Facility Start: 03-15-2020 End: 11-09-2024 Tobacco smoking status NHIS Never smoker [facility] Start: 03-15-2020 End: 11-09-2024 Tobacco use and exposure Never used [facility] Start: 03-15-2020 End: 03-27-2023 Alcohol intake Current drinker of alcohol (finding) [facility] Start: 02-03-2020 End: 03-15-2020 History SDOH Alcohol Frequency 2 [facility] Start: 02-18-2018 Alcohol Comment consumes rarely [facility] Start: 1994 Sex Assigned At Not on file [facility] [employer] Start: 03-11-2019 End: 11-09-[address] [facility] Exposure to SARS-CoV -2 (event) Not sure [facility] Start: 03-15-2020 End: 11-09-2024 History of Social function [facility] How often to you hav e a drink containing alcohol? Monthly or less [facility] Average Number of Drinks Not on file [facility] Start: 01-03-2024 Gender identity Identifies as female gender (finding) [facility] Tobacco smoking stat [facility] Tobacco smoking consumption unknown [facility] Start: 12-13-2023 [facility] Start: [facility] Sex assigned at Female [facility] Medical Equipment Procedure Code Equipment Code Equipment Origin al Text Equipment Identifier Dates 1 strip by In Vi tro route Daily Use in the morning prior to breakfast, 1 hour after each meal for a total of 4times daily. [id number] Start: 06-18-2024 End: 07-18-2024 1 each by In Vit ro route Daily Use to check FSBS four times daily [id number] Start: 06-18-2024 End: 07-18-2024 Goals Date Patient Goal Desired Activity /State Personal health goal Comment on above: 1. The patient will have orthotics that allow her to return to all normal activities with minimal to no restriction d/t right foot and knee pain. Clinical Notes 01-17-2021 to 04-15-2025 Kelley Vogt LPN - 04/15/2025 9:00 AM MAILE Arevalo - 11/09/2024 10:35 AM DILAN Mckeon - 09/07/2024 9:50 AM Rod Vogt LPN - 08/27/2024 8:30 AM EST Note Date & Type Note Facility 04-15-2025 History of Presen t illness Narrative Reason for Appointment: Patient ID: Citlali Hiale is a 29 y.o. female who presents for Well Women Visit Patient presents today for Annual Exam. MEDICATIONS Current Outpatient Medications Medication Instructions sertraline (ZOLOFT) 50 mg, Oral, Daily ALLERGIES No Known Allergies PROBLEMS Active Ambulatory Problems Diagnosis Date Noted Elevated glucose tolerance test 06/04/2024 Resolved Ambulatory Problems Diagnosis Date Noted Antepartum anemia ([facility]) 06/04/2024 26 weeks gestation of ([facility]) 06/04/2024 Second trimester ([facility]) 06/04/2024 35 weeks gestation of ([facility]) 08/06/2024 Third trimester ([facility]) 08/06/2024 No Additional Past Medical History HISTORY PAST MEDICAL HISTORY SOCIAL HISTORY No past medical history on file. Social History Tobacco Use Smoking status: Never Smokeless tobacco: Never Substance Use Topics Alcohol use: Not on [...] nursing note reviewed. Exam conducted with a glue sprayer present. Vitals: There is no height or weight on file to calculate BMI. BP: 106/68 No LMP recorded. ASSESSMENT & PLAN ICD-10-CM 1. Well woman exam with routine gynecological exam Z01.419 Pap Smear HPV DNA probe, amplified Annual Exam: Patient presents today for an annual exam. Patient states she is doing well and has no complaints. Pap was obtained without difficulty. Orders Placed This Encounter Procedures HPV DNA probe, amplified Follow Up: Patient is to return in one year for annual unless needed otherwise. Documented by Kelley Vogt LPN on behalf of: Daniel Houston DO documented in this encounter [facility] 11-09-2024 History of Presen t illness Narrative Skin Check Location: Patient requests a full body skin examination Dermatologic history: no history of skin cancer, no history of atypical moles New patient Lesions: Location: right groin Duration: years Quality: denies pain, denies itch, denies bleeding Modifying factors: aggravated by shaving Treatments: none All pertinent medical history, medications, and allergies were reviewed. General Exam: alert, oriented to person, place, and time, normal affect, well appearing Unaccompanied Scalp, Examined Right leg Examined Head, Face Examined Left leg Examined Neck Examined Right foot Examined Chest Examined Left foot Examined Back Examined Buttocks Examined Abdomen Examined Digits,nails: Examined Right arm Examined Patient wearing nail burkinan, Denies dark streaks on toenails Left arm Examined Lymphatics: Not examined Hands Examined Skin Exam 1. MELANOCYTIC NEVUS OF TRUNK Generalized Scattered benign appearing, regular brown to light brown melanocytic papules and macules with similar morphology Counseled regarding these benign growths. Rarely, a nevus can develop into malignant melanoma, so any changing nevi should be promptly re-evaluated. Next Visit: 1 year documented in this encounter [facility] 09-07-2024 History of Presen t illness Narrative Reason for Appointment: Patient ID: Citlali Haile is a 28 y.o. female who presents for Post-op Visit Patient presents today for 1 Week Post Op Follow Up appointment. MEDICATIONS Current Outpatient Medications Medication Instructions Alcohol Swabs (Alcohol Prep Pad) 70 % pads 1 Pad, Topical, Daily, Use four times daily to check FSBS. bisacodyl (DULCOLAX) 10 mg, Rectal, Once as needed Blood Glucose Monitoring Suppl ([employer] Glucometer) w/Device kit 1 kit, Does not apply, Daily, Use four times daily to check FSBS. In the morning prior to breakfast & 1 hour after each meal for a total of 4times daily. sertraline (ZOLOFT) 50 mg, Oral, Daily ALLERGIES No Known Allergies PROBLEMS Active Ambulatory Problems Diagnosis Date Noted Elevated glucose tolerance test 06/04/2024 Resolved Ambulatory Problems Diagnosis Date Noted Antepartum anemia 06/04/2024 26 weeks gestation of 06/04/2024 Second trimester 06/04/2024 35 weeks gestation of 08/06/2024 Third trimester 08/06/2024 No Additional Past Medical History HISTORY PAST [...] breath sounds. Abdominal: Palpations: Abdomen is soft. Comments: Pfannenstiel incision healing well Musculoskeletal: General: Normal range of motion. Neurological: General: No focal deficit present. Mental Status: She is alert and oriented to person, place, and time. Psychiatric: Mood and Affect: Mood normal. Behavior: Behavior normal. Thought Content: Thought content normal. Judgment: Judgment normal. Vitals and nursing note reviewed. Vitals: There is no height or weight on file to calculate BMI. BP: 120/76 No LMP recorded. ASSESSMENT & PLAN ICD-10-CM 1. Postoperative follow-up Z09 Patient presents today for a one week postop section check. Patient is doing well with minor complaints of pain. Incision has been noted as healing well with no signs and symptoms of infection. Follow Up: Patient is to return in 5 weeks for 6 week evaluation. Documented by Ngoc Rivers MA on behalf of: DILAN Mcadams documented in this encounter [facility] 08-27-2024 History of Presen t illness Narrative Reason for Appointment: Patient ID: Citlali Haile is a 28 y.o. female who presents for Routine Visit Patient presents today for Return OB appointment. MEDICATIONS Current Outpatient Medications Medication Instructions Alcohol Swabs (Alcohol Prep Pad) 70 % pads 1 Pad, Topical, Daily, Use four times daily to check FSBS. bisacodyl (DULCOLAX) 10 mg, Rectal, Once as needed Blood Glucose Monitoring Suppl ([employer] Glucometer) w/Device kit 1 kit, Does not [...] nursing note reviewed. Exam conducted with a glue sprayer present. Vitals: There is no height or [...] Patient signed consent and Dr. Houston called [facility] and spoke with Elina who put patient on the books for IOL. Paperwork will be sent to [facility] along with Episode prior to end of day today. Patient to return to clinic for 6 week follow up post . Documented by Kelley Vogt LPN on behalf of: Daniel Houston DO documented in this encounter [facility] 08-20-2024 History of Presen t illness Narrative Reason for Appointment: Patient ID: Citlali Haile is a 28 y.o. female who [...] of: DILAN Mcadams documented in this encounter [facility] 08-12-2024 History of Presen t illness Narrative Reason for Appointment: Patient ID: Citlali Haile is a 28 y.o. female who presents for Routine Visit Patient presents today for Return OB appointment. MEDICATIONS Current Outpatient Medications Medication Instructions Alcohol Swabs (Alcohol Prep Pad) 70 % pads 1 Pad, Topical, Daily, Use four times daily to check FSBS. bisacodyl (DULCOLAX) 10 mg, Rectal, Once as needed Blood Glucose Monitoring Suppl ([employer] Glucometer) w/Device kit 1 kit, Does not [...] nursing note reviewed. Exam conducted with a glue sprayer present. Vitals: There is no height or [...] by Alina Valentino LPN on behalf of: Daniel Houston DO documented in this encounter [facility] 08-06-2024 History of Presen t illness Narrative Reason for Appointment: Patient ID: Citlali Haile is a 28 y.o. female who presents for Routine Visit Patient presents today for Return OB appointment. MEDICATIONS Current Outpatient Medications Medication Instructions Alcohol Swabs (Alcohol Prep Pad) 70 % pads 1 Pad, Topical, Daily, Use four times daily to check FSBS. bisacodyl (DULCOLAX) 10 mg, Rectal, Once as needed Blood Glucose Monitoring Suppl ([employer] Glucometer) w/Device kit 1 kit, Does not [...] nursing note reviewed. Exam conducted with a glue sprayer present. Vitals: There is no height or [...] of: DILAN Mcadams documented in this encounter [facility] 07-16-2024 History of Presen t illness Narrative Reason for Appointment: Patient ID: Citlali Haile is a 28 y.o. female who [...] nursing note reviewed. Exam conducted with a glue sprayer present. Vitals: There is no height or [...] would like to have infusions completed at [facility]. Orders Placed This Encounter Procedures POCT urinalysis dipstick manually resulted Follow Up: Patient is to return to office in 2 week for routine OB appointment. Documented by Bree Wood MA on behalf of: DILAN Mcadams documented in this encounter [facility] 07-02-2024 History of Presen t illness Narrative Reason for Appointment: Patient ID: Citlali Haile is a 28 y.o. female who [...] to drop, will send prior auth to Pt given ferritin orders today Orders Placed This Encounter Procedures Ferritin Transferrin POCT urinalysis dipstick manually resulted Follow Up: Patient is to return to office in 2 week for routine OB appointment. Documented by DILAN Mcadams on behalf of: DILAN Mcadams documented in this encounter [facility] 06-18-2024 History of Presen t illness Narrative Reason for Appointment: Patient ID: Citlali Haile is a 28 y.o. female who presents for Routine Visit Patient presents today for Return OB appointment. MEDICATIONS Current Outpatient Medications Medication Instructions Alcohol Swabs (Alcohol Prep Pad) 70 % pads 1 Pad, Topical, Daily, Use four times daily to check FSBS. bisacodyl (DULCOLAX) 10 mg, Rectal, Once as needed Blood Glucose Monitoring Suppl ([employer] [place] Glucometer) w/Device kit 1 kit, Does not [...] of: DILAN Mcadams documented in this encounter [facility] 06-04-2024 History of Presen t illness Narrative Reason for Appointment: Patient ID: Citlali Haile is a 28 y.o. female who [...] nursing note reviewed. Exam conducted with a glue sprayer present. Vitals: There is no height or [...] by Kelley Vogt LPN on behalf of: Daniel Houston DO documented in this encounter [facility] 05-07-2024 History of Presen t illness Narrative Reason for Appointment: Patient ID: Citlali Haile is a 28 y.o. female who [...] nursing note reviewed. Exam conducted with a glue sprayer present. Vitals: There is no height or [...] of: DILAN Mcadams documented in this encounter [facility] 04-09-2024 History of Presen t illness Narrative Reason for Appointment: Patient ID: Citlali Haile is a 28 y.o. female who [...] nursing note reviewed. Exam conducted with a glue sprayer present. Vitals: There is no height or [...] by Kelley Vogt LPN on behalf of: Daniel Houston DO documented in this encounter [facility] 03-27-2023 History of Presen t illness Narrative [...] for cervical cancer Pap collected - [facility]Y-TAFFY PULLER, LIQUID BASED 3. Encounter for surveillance of contraceptive pills Doing well tri-cycling. No contraindicating dx. I will send in new script with refills to pharmacy of patient's choice. Patient advised to contact the office with any concerns. Patient voiced understanding of all instructions. Return in about 1 year (around 03/27/2024) for Annual with Noni lew. Thank you. . documented in this encounter [facility] 03-19-2022 History of Presen t illness [...] Pap w/ HPV rfx ASCUS ordered. - [facility] CYTOLOGY-TAFFY PULLER, LIQUID BASED 2. Initiation of oral contraception - norgestimate-ethinyl estradiol 0.25-35 MG-MCG tablet; Take 1 tablet by mouth daily. Dispense: 84 tablet; Refill: 3 Return in about 1 year (around 03/19/2023) for Annual wellness. documented in this encounter [facility] 03-17-2021 History of Presen t illness [...] Social Gatherings with Friends and Family: Attends [employer]ab[employer] Services: Active Member of Clubs or Organizations: [...] w/ HPV rfx ASCUS ordered. - [facility] CYTOLOGY-TAFFY PULLER, LIQUID BASED 2. Encounter for surveillance of contraceptive pills - levonorgestrel-ethinyl estradiol (Quasense) 0.15-0.03 MG tablet; Take one tablet by mouth daily. Dispense: 91 tablet; Refill: 3 Return in about 1 year (around 03/17/2022) for Annual wellness. documented in this encounter [facility] 02-01-2021 History of Presen t illness [...] another episode of fainting while shopping at [employer]. She has a hx of iron deficiency, she has not been taking iron regularly, so she restarted this for one week. She notes that she was feeling pretty good again. She felt that she was tired all of the time, had another episode while at [employer] Saturday01/15/21. She has a high resting heart [...] Social Gatherings with Friends and Family: Attends [employer] Services: Active Member of Clubs or Organizations: [...] Assessment: Physical Exam documented in this encounter [facility] 01-17-2021 History of Presen t illness [...] another episode of fainting while shopping at [employer]. She has a hx of iron deficiency, she has not been taking iron regularly, so she restarted this for one week. She notes that she was feeling pretty good again. She felt that she was tired all of the time, had another episode while at [employer] Saturday01/15/21. She has a high resting heart [...] Social Gatherings with Friends and Family: Attends [employer]ist Services: Active Member of Clubs or Organizations: [...] Assessment: Physical Exam documented in this encounter [facility] 01-17-2021 Miscellaneous Notes Addended by: MAKAYLA KILGORE on: 01/17/2021 03:15 PM Modules accepted: Orders documented in this encounter [facility] Evaluation note Diagnosis Lightheadedness- Primary Dizziness [...] blood loss (chronic) [facility] Lightheadedness Dizziness and giddiness [facility] [facility]* Diagnosis Murmur- Primary Undiagnosed cardiac murmurs History of COVID-19 Abnormal EKG Nonspecific abnormal electrocardiogram (ECG) (EKG) Generalized anxiety disorder Fluid level behind tympanic membrane of both ears Leukocytosis, unspecified type documented in this encounter [facility] System[facility]* Diagnosis Murmur Undiagnosed cardiac murmurs History of COVID-19 Abnormal EKG Nonspecific abnormal electrocardiogram (ECG) (EKG) documented in this encounter [facility]* Diagnosis Encounter for gynecological examination without abnormal finding- Primary Routine gynecological examination Encounter for surveillance of contraceptive pills Surveillance of previously prescribed contraceptive pill documented in this encounter [facility]* Diagnosis Encounter for gynecological examination without abnormal finding- Primary Routine gynecological examination Initiation of oral contraception documented in this encounter [facility]* Diagnosis Encounter for gynecological examination without abnormal finding- Primary Routine gynecological examination Screening for cervical cancer Screening for malignant neoplasm of the cervix Encounter for surveillance of contraceptive pills Surveillance of previously prescribed contraceptive pill documented in this encounter [facility] System[facility] note* Diagnosis 22 weeks gestation of [...] weeks gestation of documented in this encounter [facility] note* Diagnosis Third trimester state, incidental 38 weeks gestation of documented in this encounter [facility]* Diagnosis Postoperative follow-up Follow-up examination, following unspecified surgery documented in this encounter [facility]* Diagnosis Melanocytic nevus of trunk- Primary Benign neoplasm of skin of trunk, except scrotum documented in this encounter [facility] Healthcare[facility] note* Diagnosis Well woman exam with routine gynecological exam Routine gynecological examination documented in this encounter [facility] Summary Purpose Family History No Family History Records FoundNo Family History Records FoundNo Family History Records FoundNo Family History Records Found Advance Directives No Advanced Directives Records FoundNo Advanced Directives Records FoundNo Advanced Directives Records FoundNo Advanced Directives Records Found History of Present Illness * Marina Kirby, [employer] - 03/15/2020 9:30 AM EDT History of [...] file Gets together: Not on file Attends restoration service: Not on file Active member of [...] w/ HPV rfx ASCUS ordered - [facility]FFY PULLER, LIQUID BASED; Future 2. Encounter for surveillance of contraceptive pills - levonorgestrel-ethinyl estradiol (Quasense) 0.15-0.03 MG tablet; Take one tablet by mouth daily. Dispense: 1 Package; Refill: 3 Return in about 1 year (around 03/15/2021) for Annual wellness. documented in this encounter* Marina Kirby APRN-CNP - 03/11/2019 2:40 PM EDT [...] file Gets together: Not on file Attends restoration service: Not on file Active member of [...] w/ HPV rfx ASCUS ordered - [facility]Y PULLER, LIQUID BASED; Future 2. Encounter for surveillance [...] Procedures Referred By Contact Referred To Contact [facility] Request Diagnoses Lightheadedness Procedures ECG Sandee Doan MD [address] [place] [address] Status Reason Specialty Diagnoses / Procedures Referred By Contact Referred To Contact Auth Not Needed Cardiovascular Medicine Diagnoses Murmur History of COVID-19 Abnormal EKG Procedures ECHOCARDIOGRAM TREADMILL STRESS TEST [place] ECHO TTHRC R-T 2D W/WO M-MODE REST&STRS CONT ECG [place] DOPPLER ECHO HEART,LIMITED,F/ U [place] DOPPLER COLOR FLOW VELOCITY MAP Sandee Doan MD [address] [place] [address] [facility] [address] [place] [address] Status Reason Specialty Diagnoses / Procedures Referred By Contact Referred To Contact Closed Cardiovascular Medicine Diagnoses Murmur History of COVID-19 Abnormal EKG Procedures ECHOCARDIOGRAM TREADMILL STRESS TEST [place] ECHO TTHRC R-T 2D W/WO M-MODE REST&STRS CONT ECG [place] DOPPLER ECHO HEART,LIMITED,F/U [place] DOPPLER COLOR FLOW VELOCITY MAP Sandee Doan MD [address] [place] [address] [facility] [address] [place] [address] Additional Source Comments INFORMATION SOURCE (unrecogn ized section and content) DATE CREATED AUTHOR 01/22/2018 [facility] DATE CREATED AUTHOR AUTHOR'S ORGANIZ ATION 05/27/2018 [facility] DATE CREATED AUTHOR AUTHOR'S ORGANIZ ATION 09/12/2024 [facility] DATE CREATED AUTHOR AUTHOR'S ORGANIZ ATION 11/10/2024 [facility] EPIC Reason for Visit (unrecogniz ed section and content) Reason Comments Annual Exam Pap 03/11/19 wnl Reason Comments Annual Exam Pap 02/18/18 wnl Want s to discuss ocp Reason Comments Rapid Heart Rate Status Reason Specialty Diagnoses / Procedures Referred By Contact Referred To Contact New Request Diagnoses Lightheadedness Procedures ECG Sandee Doan MD [address] [place] [address] Reason Comments Dizziness 2 week f/u Status Reason Specialty Diagnoses / Procedures Referred By Contact Referred To Contact Closed Cardiovascular Medicine Diagnoses Murmur History of COVID-19 Abnormal EKG Procedures ECHOCARDIOGRAM TREADMILL STRESS TEST [place] ECHO TTHRC R-T 2D W/WO M-MODE REST&STRS CONT ECG [place] DOPPLER ECHO HEART,LIMITED,F/U [place] DOPPLER COLOR FLOW VELOCITY MAP Sandee Doan MD [address] [place] [address] [facility] [address] [place] [address] Reason Comments Annual Exam Pap 03/15/20 NILM [...] Comments Routine Visit Reason Comments Routine Visit Reason Comments Post-op Visit Reason Comments Skin Check Reason Comments Well Women Visit Care Teams (unrecognized sec tion and content) [employer] Relationship Specialty Start Date End Date Sandee Doan MD PCP - General Family Medicine 12/21/16 [employer] Relationship Specialty Start Date End Date Sandee Doan MD PCP - General Family Medicine 12/21/16 [employer] Relationship Specialty Start Date End Date Sandee Doan MD PCP - General Family Medicine 12/21/16 [employer] Relationship Specialty Start Date End Date Jeanna Estes PA [address] [place] [address] [place] [address] PCP - [facility] [place] [employer] 07/29/21 07/28/99 [employer] Relationship Specialty Start Date End Date Jeanna Estes PA [address] [place] [address] [place] [address] PCP - Medical [place] [employer] 07/29/21 07/28/99 [employer] Relationship Specialty Start Date End Date Dileeptima Marci A, [employer] [address] [place] [address] PCP - Medical [place] [employer] 07/29/21 07/28/99 [employer] Relationship Specialty Start Date End Date Marci Bonds [employer]N-[employer] ATTENDANT [address] [facility] [address] [place] [address] PCP - Medical [place] [employer] 07/29/21 07/28/99 FOR RECORDS PERTAINING TO PATIENTS WHO ARE [...] BE BASED ON THE PRIMARY CLINICAL RECORDS. [facility] [employer] [facility]. provides no warranty or guarantee of the accuracy or completeness of information in this document.
[2025-04-20 17:12] LABS: Age Gdln ACOG Testing Note (.); IGP, Aptima HPV, rfx 16/18,45 Note (.)
== END 2025-04-15 13:33 | disposition home or self-care (01) ==
LOC: LAB 13:32
PROVIDERS: Visit Provider Obstetrics & Gynecology
DX: Z01.419 Encounter for gynecological examination (general) (routine) without abnormal findings (principal)
CPT/HCPCS: 87624; 88175